=== PATIENT | female | born 1975 | race American Indian/Alaskan Native ===

== ENCOUNTER 2019-05-02 09:57 | Outpatient (CLI) | payer MEDICAID ==
--- NOTE | 2019-05-02 13:25 | Mammography Report ---
DIGITAL SCREENING MAMMOGRAM WITH CAD, 05/02/2019 INDICATION: Routine screening mammography. TECHNIQUE: Digital bilateral 2D mammography was obtained in the craniocaudal and mediolateral obliq ue projections. This examination was interpreted with the benefit of Computer-Aided Detection analysi s. COMPARISON: None. This is a baseline mammogram. FINDINGS: Breast Density: The breasts are almost entirely fatty. There is no evidence of dominant mass, suspicious calcifications or architectural distortion in eithe r breast. IMPRESSION: No mammographic evidence of malignancy. Follow up recommendation: Routine yearly BI-RADS Category 1: Negative. A "normal" or negative report should not discourage follow up or biopsy of a clinically significant f inding. A written summary of these findings will be mailed to the patient. The patient will be entered into a mammography reporting system which will generate a reminder letter for the patient's next appointmen t at the appropriate interval. The [employer] recommends yearly mammograms starting at age 40 and continuing as l mk[place]a as a woman is in good health. Breast MRI is recommended for women with an approximate 20-25% or greater lifetime risk of breast cancer, including women with a strong family history of breast or ova bernice cancer or who have been treated for Hodgkin's disease. Signer Name: Shantanu Valderrama MD Signed: 05/02/2019 1:21 PM Workstation Name: [id number]
== END 2019-05-02 09:58 | disposition home or self-care (01) ==
LOC: MAMMO 09:57
PROVIDERS: ATTEND Nurse Practitioner Family
DX: Z12.31 Encounter for screening mammogram for malignant neoplasm of breast (principal); N64.89 Other specified disorders of breast
CPT/HCPCS: 77067

== ENCOUNTER 2019-06-19 11:10 | Emergency (ER) | payer MEDICAID ==
--- NOTE | 2019-06-19 11:30 | Event Note ---
ED Screening Note ED Screening Note: SOB and CP that began 4 days ago swelling in the bilateral feet +constipation PMHx HTN, "heart problem" no allergies to meds non smoker This initial assessment/diagnostic orders/clinical plan/treatment(s) is/are subject to change based on patients health status, clinical progression and re- assessment by fellow clinical providers in the ED. Further treatment and workup at subsequent clinical providers discretion. Patient/guardian urged not to elope from the ED as their condition may be serious if not clinically assessed and managed. Initial orders include: CP protocol
--- NOTE | 2019-06-19 11:57 | Emergency Department Report ---
ED Chest Pain HPI - General Chief Complaint: Chest Pain Stated Complaint: CHEST PAIN Time Seen by Provider: 06/19/19 11:29 Source: patient Mode of arrival: Ambulatory Limitations: Other - History of Present Illness Initial Comments: Patient is 44 years old female with hearing impairment. Mother at bedside translating for patient. Mother stated that patient started having chest pain approximately 5 days ago described as sharp with no radiation. Patient stated that pain increases with cough and deep inspiration. She denied any fever or chills. No nausea or vomiting. 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 MD Complaint: chest pain -: days(s) (5) - Related Data Allergies Allergy/AdvReac Type Severity Reaction Status Date / Time No Known Allergies Allergy Unverified 06/19/19 11:32 Heart Score - HEART Score History: Slightly suspicious EKG: Non-specific Age: 45-65 Risk factors: 1-2 risk factors Troponin: < normal limit HEART Score: 3 - Critical Actions Critical Actions: 0-3 pts:0.9-1.7%risk of adverse cardiac event.Candidate for discharge ED Review of Systems ROS: Stated complaint: CHEST PAIN Other details as noted in HPI Comment: All other systems reviewed and negative Constitutional: denies: chills, fever Respiratory: cough, shortness of breath, SOB with exertion. denies: orthopnea, SOB at rest, stridor, wheezing Cardiovascular: chest pain Gastrointestinal: denies: abdominal pain, nausea, vomiting Musculoskeletal: denies: back pain Neurological: denies: headache, weakness ED Past Medical Hx - Past Medical History Previous Medical History?: Yes Hx Congestive Heart Failure: Yes - Social History Smoking Status: Never Smoker Substance Use Type: None ED Physical Exam - General Limitations: Other General appearance: alert, in no apparent distress - Head Head exam: Present: atraumatic, normocephalic, normal inspection - Eye Eye exam: Present: normal appearance, PERRL - ENT ENT exam: Present: normal exam, normal orophraynx, mucous membranes moist - Neck Neck exam: Present: normal inspection, full ROM. Absent: tenderness, meningismus, lymphadenopathy, thyromegaly - Respiratory Respiratory exam: Present: normal lung sounds bilaterally - Cardiovascular Cardiovascular Exam: Present: regular rate, normal rhythm, normal heart sounds - GI/Abdominal GI/Abdominal exam: Present: soft, normal bowel sounds. Absent: distended, tenderness, guarding, rebound, rigid, organomegaly, mass, bruit, pulsatile mass, hernia - Extremities Exam Extremities exam: Present: normal inspection, full ROM, normal capillary refill, pedal edema. Absent: calf tenderness - Back Exam Back exam: Present: normal inspection, full ROM. Absent: CVA tenderness (R), CVA tenderness (L), muscle spasm, paraspinal tenderness, vertebral tenderness - Neurological Exam Neurological exam: Present: alert, oriented X3, CN II-XII intact, normal gait. Absent: motor sensory deficit - Psychiatric Psychiatric exam: Present: normal mood - Skin Skin exam: Present: warm, intact, normal color ED Course Vital Signs 06/19/19 06/19/19 06/19/19 11:31 12:18 13:16 Temperature 98.5 F 98.7 F Pulse Rate 80 78 Respiratory 20 20 23 Rate Blood Pressure 169/88 131/57 Blood Pressure [Right] O2 Sat by Pulse 98 98 100 Oximetry 06/19/19 06/19/19 06/19/19 13:20 15:00 15:30 Temperature Pulse Rate 82 68 Respiratory 12 22 Rate Blood Pressure 166/79 166/79 Blood Pressure 159/69 [Right] O2 Sat by Pulse 98 99 97 Oximetry 06/19/19 16:00 Temperature Pulse Rate 71 Respiratory 13 Rate Blood Pressure 166/79 Blood Pressure [Right] O2 Sat by Pulse 93 Oximetry ED Medical Decision Making - Lab Data Result diagrams: 06/19/19 11:55 06/19/19 11:55 - EKG Data -: EKG Interpreted by Nv EKG shows normal: sinus rhythm Rate: normal - EKG Data Interpretation: no acute changes - Medical Decision Making Patient is 44 years old female with hearing impairment. Mother at bedside translating for patient. Mother stated that patient started having chest pain approximately 5 days ago described as sharp with no radiation. Patient stated that pain increases with cough and deep inspiration. She denied any fever or chills. No nausea or vomiting. 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 Patient remained asymptomatic in the ER except for mild coughing. EKG showed no ST elevation or depression. Chest x-ray is negative for acute finding. Labs reviewed and is unremarkable including 2- sets of troponin. D-dimer slightly elevated patient had a CTA chest which is negative for PE. Patient advised to follow-up with her primary care physician in the next 2 to 3 days and to return to the ER if symptoms are not improved. Critical care attestation.: If time is entered above; I have spent that time in minutes in the direct care of this critically ill patient, excluding procedure time. ED Disposition Clinical Impression: Chest pain, Acute bronchitis, GERD (gastroesophageal reflux disease) Disposition: - TO HOME OR SELFCARE Is pt being admited?: No Condition: Stable Instructions: Chest Pain (ED), Acute Bronchitis (ED) Referrals: NATHANIEL PORTILLO MD [Primary Care Provider] - 3-5 Days
[2019-06-19 12:19] LABS: Bilirubin,Urine NEG (Negative); Blood,Urine SM (Negative); Color,Urine Straw (Yellow); Mucus,Urine FEW /HPF; Protein,Urine <15 mg/dL mg/dL (Negative); Urobilinogen,Urine < 2.0 mg/dL (<2.0)
[2019-06-19] MEDS ORDERED: ASPIRIN 81 MG TAB CHEW PO ONE (12:28)
[2019-06-19 12:37] LABS: Basophils % (Auto) 0.7 % (0.0-1.8); Eosinophils # (Auto) 0.3 K/mm3 (0.0-0.4); Hematocrit 26.7 % (30.3-42.9); Hemoglobin 8.4 gm/dl (10.1-14.3); Lymphocytes # (Auto) 1.9 K/mm3 (1.2-5.4); Lymphocytes % (Auto) 26.6 % (13.4-35.0); Mean Corpuscular HGB Conc 31 % (30-34); Mean Corpuscular Volume 75 fl (79-97); Monocytes # (Auto) 0.8 K/mm3 (0.0-0.8); Monocytes % (Auto) 10.7 % (0.0-7.3); Platelet Count 384 K/mm3 (140-440); Red Blood Count 3.58 M/mm3 (3.65-5.03); Red Cell Distribution Width 16.5 % (13.2-15.2)
[2019-06-19 12:58] LABS: Alanine Aminotransferase 38 units/L (7-56); Albumin 4.3 g/dL (3.9-5); BUN/Creatinine Ratio 11; Blood Urea Nitrogen 9 mg/dL (7-17); Calcium 9.4 mg/dL (8.4-10.2); Hemolysis Index 7
--- NOTE | 2019-06-19 13:54 | XRay Report ---
CHEST 2 VIEWS INDICATION: Chest pain. COMPARISON: None FINDINGS: Support devices: None. Heart: Within normal limits. Lungs/pleura: No acute air space or interstitial disease. No pneumothorax. Additional findings: None. IMPRESSION: No acute findings. Signer Name: William Lopez Jr, MD Signed: 06/19/2019 1:50 PM Workstation Name: [id number]
--- NOTE | 2019-06-19 13:56 | XRay Report ---
ABDOMEN 2 VIEWS INDICATION: constipation. COMPARISON: No relevant prior imaging study available. FINDINGS: Normal bowel gas pattern with moderate stool in the right colon and in the rectum. No distended bowel and no air-fluid levels. No free air. No mass or suspicious calcifications. IMPRESSION: 1. Negative abdomen.. Signer Name: Shantanu Valderrama MD Signed: 06/19/2019 1:51 PM Workstation Name: [id number]
--- NOTE | 2019-06-19 15:11 | Cat Scan Report ---
CTA CHEST WITH CONTRAST INDICATION : CHEST PAIN WITH ELEVATED D-DIMER. TECHNIQUE: Axial imaging performed through the chest, with contrast bolus timing set to maximize opa cification of the pulmonary arteries. Sagittal and coronal reformatted images. 3-plane MIP reformatte d images were obtained. All CT scans at this location are performed using CT dose reduction for ALAR A by means of automated exposure control. 100 mL of intravenous contrast administered. COMPARISON: None FINDINGS: Bolus: Contrast bolus timing is adequate. PTE: No filling defect is present to suggest PTE. Mediastinum: Mild cardiomegaly is evident. No pericardial effusion. The aorta is normal caliber and widely patent. The thyroid gland, tracheobronchial tree and esophagus are unremarkable. Calcified rig ht hilar lymph nodes are noted suggesting chronic granulomatous disease. No pathologic mediastinal a denopathy. Lungs: Lungs are clear. Bones: Degenerative changes in the spine with nothing acute. Upper abdomen: Limited imaging of the upper abdomen shows nothing acute. IMPRESSION: No evidence for pulmonary embolus. Mild cardiomegaly. Lungs clear. Signer Name: William Lopez Jr, MD Signed: 06/19/2019 3:07 PM Workstation Name: [id number]
[2019-06-19 17:37] VITALS: BP 163/67
== END 2019-06-19 17:32 | disposition home or self-care (01) ==
LOC: ED 11:10
DX: J20.9 Acute bronchitis, unspecified (principal); R07.9 Chest pain, unspecified; K21.9 Gastro-esophageal reflux disease without esophagitis; I50.9 Heart failure, unspecified
CPT/HCPCS: 36415; 71046; 71275; 74019; 80053; 81001; 83880; 84484; 84703; 85025; 85379; 93005; 93010; 99285; Q9967

== ENCOUNTER 2020-09-25 16:46 | Inpatient (IN) | payer MEDICAID ==
[2020-09-25] MEDS ORDERED: ASPIRIN 300 MG RECT SUPP PR ONE (16:51)
[2020-09-25] MEDS ORDERED: fentaNYL 100 MCG/2 ML INJ IV PRN (16:52)
[2020-09-25] MEDS ORDERED: LIP THERAPY VASELINE TP PRN (16:52)
[2020-09-25] MEDS ORDERED: EPINEPHrine 1 MG/1 ML 8 MG in SODIUM CHLORIDE 0.9% 250ML 242 ML IV ONE (16:54)
[2020-09-25] MEDS ORDERED: CEFEPIME/NS 2 GM/100 ML 2 GM/100 ML BAG IV ONE (16:54)
[2020-09-25] MEDS ORDERED: SODIUM CHLORIDE 0.9% 500 ML 500 ML IV ONE (16:54)
[2020-09-25] MEDS ORDERED: fentaNYL DRIP Premix 2,000 MCG/100 ML BAG IV SCH (17:00)
--- NOTE | 2020-09-25 17:04 | Emergency Department Report ---
ED CPR HPI - General Chief Complaint: Cardiac Arrest/CPR Stated Complaint: CARDIAC ARREST Time Seen by Provider: 09/25/20 16:46 Source: EMS Mode of arrival: Stretcher Limitations: Altered Mental Status, Physical Limitation, Other - History of Present Illness Initial Comments: Patient is a 45-year-old female who presents emergency room for cardiac arrest. Patient is a cardiac arrest with EMS and had spontaneous return of circulation in route to the hospital. EMS states that the patient called 911 for shortness of breath. EMS states that when they arrived to the patient's house the patient then went to a cardiac arrest. EMS states they were given 2 rounds of epi, bicarb and defibrillated the patient twice. Patient was intubated by EMS. MD Complaint: found unresponsive, stopped breathing -: minute(s) Place: home Bystander CPR Performed: Yes AED Applied by Bystander/Ssrs Developer: Yes Shock Advised: Yes Number of Shocks Delivered: 2 Initial Findings in the Field: unresponsive, no respirations, no pulse ROSC in the Field: Yes Associated Symptoms: shortness of breath Treatments Prior to Arrival: intubation, BMV, chest compressions, defribrillated shocks #, epinephrine mgs #, sodium bicarbonate - Related Data Previous Rx's Medication Instructions Recorded Last Taken Type Amoxicillin [Amoxicillin TAB] 875 mg PO BID #14 tablet 06/19/19 Unknown Rx Esomeprazole Magnesium [NexIUM] 40 mg PO QDAY #30 capsule. 06/19/19 Unknown Rx guaiFENesin [Robitussin] 5 ml PO TID PRN #100 ml 06/19/19 Unknown Rx Allergies Allergy/AdvReac Type Severity Reaction Status Date / Time No Known Allergies Allergy Unverified 06/19/19 11:32 ED Review of Systems ROS: Stated complaint: CARDIAC ARREST Other details as noted in HPI Comment: Unobtainable due to pts medical conditions ED Past Medical Hx - Past Medical History Hx Congestive Heart Failure: Yes - Social History Smoking Status: Never Smoker Substance Use Type: None - Medications Home Medications: Home Medications Medication Instructions Recorded Confirmed Last Taken Type Amoxicillin [Amoxicillin TAB] 875 mg PO BID #14 tablet 06/19/19 Unknown Rx Esomeprazole Magnesium [NexIUM] 40 mg PO QDAY #30 capsule. 06/19/19 Unknown Rx guaiFENesin [Robitussin] 5 ml PO TID PRN #100 ml 06/19/19 Unknown Rx ED Physical Exam - General General appearance: in no apparent distress - Head Head exam: Present: atraumatic, normocephalic - Eye Eye exam: Present: normal appearance, PERRL Pupils: Present: normal accommodation - ENT ENT exam: Present: mucous membranes dry - Neck Neck exam: Present: normal inspection - Respiratory Respiratory exam: Present: normal lung sounds bilaterally. Absent: respiratory distress - Cardiovascular Cardiovascular Exam: Present: regular rate, normal rhythm. Absent: systolic murmur, diastolic murmur, rubs, gallop - GI/Abdominal GI/Abdominal exam: Present: soft, normal bowel sounds - Rectal Rectal exam: Present: deferred - Extremities Exam Extremities exam: Present: normal inspection - Back Exam Back exam: Present: normal inspection - Neurological Exam Neurological exam: Present: altered - Skin Skin exam: Present: warm, dry, intact, normal color. Absent: rash ED Course Vital Signs 09/25/20 09/25/20 09/25/20 16:46 16:51 16:58 Temperature 98 F Pulse Rate 115 H Pulse Rate [ From Monitor] Respiratory Rate Blood Pressure O2 Sat by Pulse 95 99 Oximetry 09/25/20 09/25/20 09/25/20 17:00 17:16 17:30 Temperature Pulse Rate 115 H 98 H 90 Pulse Rate [ From Monitor] Respiratory 14 19 23 Rate Blood Pressure 84/47 121/75 132/81 O2 Sat by Pulse 99 99 100 Oximetry 09/25/20 09/25/20 09/25/20 17:46 18:00 18:16 Temperature Pulse Rate 98 H 111 H 125 H Pulse Rate [ From Monitor] Respiratory 15 12 21 Rate Blood Pressure 144/84 112/63 118/71 O2 Sat by Pulse 91 Oximetry 09/25/20 09/25/20 09/25/20 18:30 18:46 19:01 Temperature Pulse Rate 132 H 122 H 120 H Pulse Rate [ From Monitor] Respiratory 14 14 14 Rate Blood Pressure 119/64 131/66 139/85 O2 Sat by Pulse 100 96 95 Oximetry 09/25/20 09/25/20 09/25/20 19:41 19:45 20:01 Temperature Pulse Rate 130 H 130 H 128 H Pulse Rate [ From Monitor] Respiratory 21 30 H Rate Blood Pressure 142/82 141/80 124/76 O2 Sat by Pulse 50 L 100 99 Oximetry 09/25/20 09/25/2021 20:15 20:31 20:45 Temperature Pulse Rate 126 H 123 H 123 H Pulse Rate [ From Monitor] Respiratory 25 H 20 18 Rate Blood Pressure 122/68 124/62 117/69 O2 Sat by Pulse 100 100 100 Oximetry 09/25/20 09/25/20 09/25/20 20:54 21:01 21:27 Temperature Pulse Rate 122 H 124 H Pulse Rate [ 122 H From Monitor] Respiratory 12 14 Rate Blood Pressure 116/65 116/65 O2 Sat by Pulse 98 97 100 Oximetry - Reevaluation(s) Reevaluation #1: Patient arrived with EMS and initial evaluation done. Patient found to have ET tube in the right mainstem and breath sounds were not heard on the left and the ET tube was immediately adjusted. Patient's initial Lucita 26 of the teeth and the patient was adjusted to 23 at the teeth. A chest x-ray to be done. Labs will be ordered. Patient currently has a pulse and is on the ventilator. Patient blood pressure initially low and given a bolus of fluids. Epinephrine has been ordered. 09/25/20 16:46 Reevaluation #2: Patient blood pressure is better with fluids. Patient appears to be seizing. Patient's drip will be changed from fentanyl to Ativan. Patient given a as needed Ativan dose. Patient also biting down on the ET tube. Patient was given rocuronium to relax the jaw muscles and a bite block will be placed. 09/25/20 17:45 Reevaluation #3: Central line placed without difficulty. See procedure note. 09/25/20 18:01 Reevaluation #4: Patient is resting more comfortably. Patient on Ativan drip. 09/25/20 18:55 Reevaluation #5: Patient admitted to the hospitalist service. I discussed the case with the family. 09/25/20 20:22 - Consultations Consultation #1: I discussed the case with general cardiology. General cardiology wants the patient placed on heparin if the CT of the head is negative. 09/25/20 19:12 Consultation #2: Hospitalist consulted for admission. Hospitalist to admit patient. 09/25/20 20:22 - Central Line Placement Right Femoral Consent Obtained: emergent situation Time Out Performed: Yes Patient Placed on Monitor/Pulse Ox: Yes Prep: mask, gown, gloves Central Line Prep: Chlorhexidine scrub, sterile drapes applied Local Anesthesia Used: Lidocaine 1% Ultrasound Used for Placement: Yes Central Line Lumen Inserted: triple Reason for Insertion: Emergency Venous Access Bloods Obtained for Lab: Yes Central Line Position: good blood return, all ports aspirated, flus, sutured in place with 2-0 Dressing Applied: Tegaderm Patient Tolerated Procedure: well, no complications Complications: none Additional Comments: Central Venous Line Placement: Indication: Hemodynamic monitoring/Intravenous access A time-out was completed verifying correct patient, procedure, site, positioning, and special equipment if applicable. The patient was placed in a dependent position appropriate for central line placement based on the vein to be cannulated. The patients right groin was prepped and draped in sterile fashion. 1% Lidocaine was used to anesthetize the surrounding skin area. An ultrasound was used in a sterile fashion to identify vasculature. A triple l umen catheter was introduced into the the common femoral vein using the Seldinger technique and under ultrasound guidance. The catheter was threaded smoothly over the guide wire and appropriate blood return was obtained. Each lumen of the catheter was evacuated of air and flushed with sterile saline. The catheter was then sutured in place to the skin and a sterile dressing applied. Perfusion to the extremity distal to the point of catheter insertion was checked and found to be adequate. Estimated Blood Loss: minimal The patient tolerated the procedure well and there were no complications. ED Medical Decision Making - Lab Data Result diagrams: 09/25/20 18:15 09/25/20 18:15 - EKG Data -: EKG Interpreted by Me EKG shows normal: sinus rhythm, axis, intervals, QRS complexes, ST-T waves Rate: normal - Radiology Data Radiology results: report reviewed, image reviewed interpreted by me: Chest x-ray: No pneumonia, no pneumothorax,, no osseous findings, no acute fin dings except for satisfactory placement of NG and ET tube. CHEST 1 VIEW 09/25/2020 4:28 PM INDICATION / CLINICAL INFORMATION: ETT placement. COMPARISON: 06/19/2019 FINDINGS: SUPPORT DEVICES: Interval placement of ET tube with its tip approximately 4 cm above level marian. Interval placement of NG tube with its tip in appropriate position over the left upper quadrant abdomen. HEART / MEDIASTINUM: Stable. LUNGS / PLEURA: No significant pulmonary or pleural abnormality. No pneumothorax. ADDITIONAL FINDINGS: No significant additional findings. IMPRESSION: 1. Interval placement of ET tube and NG tube both in appropriate position. 2. Findings otherwise unchanged from prior exam. CTA CHEST WITH IV CONTRAST INDICATION: cardiac arrest. sob [id number] 100ml ejected in femoral . TECHNIQUE: Axial CT images were obtained through the chest after injection of IV contrast. 3 plane MIP reconstructions were produced. All CT scans at this location are performed using CT dose reduction for Epiclist by means of automated exposure control. COMPARISON: 06/19/2019 FINDINGS: Pulmonary Arteries: No pulmonary emboli. Thoracic Aorta: No acute abnormality. Heart: Normal. There is reflux of contrast from the right atrium into the IVC. Lungs: There is consolidative change within both dependent lungs. Pleura: No pleural effusion. No pneumothorax. Lymph Nodes: No significant adenopathy. Additional Findings: Endotracheal tube is in satisfactory position. Upper Abdomen: No acute findings. Skeletal Structures: No significant osseous abnormality. IMPRESSION: 1. No CT evidence for pulmonary embolism. 2. Given the distribution, consolidative changes within both dependent lungs may be due to aspiration. CT BRAIN: 09/25/2020 INDICATION / CLINICAL INFORMATION: ams. cardiac arrest. sob . COMPARISON: None available. FINDINGS: BRAIN/INTRACRANIAL STRUCTURES: Unenhanced CT images of the brain demonstrate no evidence of acute abnormality. Ventricles and sulci are normal in size and shape. There is no evidence of acute ischemic injury, hemorrhage, or mass. There are no abnormal extra- axial fluid collections. EXTRACRANIAL STRUCTURES: Unremarkable. IMPRESSION: Negative unenhanced CT of the brain. - Medical Decision Making Patient is a 45-year-old female who presents emergency room with cardiac arrest. Prior to arrival EMS obtained spontaneous return of circulation. Report rec eived from EMS. EMS states that the gave the patient 2 rounds of epi, bicarb and defibrillated the patient with 2 shocks. Patient had return of circulation just prior to arrival. Patient was intubated by EMS. She was immediately adjusted due to anterolateral breath sounds. The chest x-ray was done and the breath sounds were normal. Patient chest x-ray showed good placement of the ET tube and the NG tube. The chest x-ray showed no pneumonia. I personally reviewed the chest x-ray. Patient had EKG done which showed normal sinus rhythm and no ST changes. I personally reviewed the EKG. Patient had labs done which were consistent with elevated lactic acid, elevated WBC, elevated troponin. I discussed these lab findings with general cardiology and cardiology recommended after the head CT was done the patient was started on a heparin protocol for NSTEMI. Patient had a head CT done which was negative for acute finding. Patient had a CTA of the chest to rule out a PE since the patient went to cardiac arrest after complaining of shortness of breath. CTA was negative for PE but showed bilateral aspiration to have pneumonia. Patient was given antibiotics early in her ER stay since the patient was tachycardic hypotensive and had a cardiac arrest. Patient given fluids while in the ER. Patient had a central line placed for emergent IV access since the patient is a cardiac arr est. Patient admitted to the hospital service for further evaluation treatment. Patient admitted to the ICU. I met with the family multiple times throughout the ER stay to keep them abreast of the information. Prior to admission, a long family meeting to allow the family to ask all the questions addressed all the family concerns. Critical care time documented due to the multiple reassessments, prolonged time at the bedside, interpretation of diagnostics and labs. - Differential Diagnosis Cardiac arrest, SOB, PE, NSTEMI, Critical Care Time: Yes Critical care time in (mins) excluding proc time.: 80 Critical care attestation.: If time is entered above; I have spent that time in minutes in the direct care of this critically ill patient, excluding procedure time. Critical Care Time: 80 minutes ED Disposition Clinical Impression: Cardiac arrest, SOB (shortness of breath), Seizure, Elevated troponin I level, Non-ST elevation [place] (NSTEMI), Acute hypoxemic respiratory failure, Lactic acid acidosis Hypotension Qualifiers: Hypotension type: unspecified hypotension type Qualified Code(s): I95.9 - Hypotension, unspecified Aspiration pneumonia Qualifiers: Aspiration pneumonia type: unspecified Laterality: bilateral Lung location: uns pecified part of lung Qualified Code(s): J69.0 - Pneumonitis due to inhalation of food and vomit Pneumonia Qualifiers: Pneumonia type: due to unspecified organism Laterality: unspecified laterality Lung location: unspecified part of lung Qualified Code(s): J18.9 - Pneumonia, unspecified organism UTI (urinary tract infection) Qualifiers: Urinary tract infection type: acute cystitis Hematuria presence: with hematuria Qualified Code(s): N30.01 - Acute cystitis with hematuria Disposition: OP ADMIT IP TO THIS HOSP Is pt being admited?: Yes Does the pt Need Aspirin: No Condition: Critical Time of Disposition: 20:21
--- NOTE | 2020-09-25 17:39 | XRay Report ---
CHEST 1 VIEW 09/25/2020 4:28 PM INDICATION / CLINICAL INFORMATION: ETT placement. COMPARISON: 06/19/2019 FINDINGS: SUPPORT DEVICES: Interval placement of ET tube with its tip approximately 4 cm above level marian. In terval placement of NG tube with its tip in appropriate position over the left upper quadrant abdomen . HEART / MEDIASTINUM: Stable. LUNGS / PLEURA: No significant pulmonary or pleural abnormality. No pneumothorax. ADDITIONAL FINDINGS: No significant additional findings. IMPRESSION: 1. Interval placement of ET tube and NG tube both in appropriate position. 2. Findings otherwise unchanged from prior exam. Signer Name: Chacho Houston MD Signed: 09/25/2020 5:35 PM Workstation Name: [id number]
[2020-09-25] MEDS ORDERED: LORazepam 2 MG/ML VIAL ONE (17:49)
[2020-09-25] MEDS: LORazepam 2 MG/ML VIAL IV PRN ×4 (17:50→18:22)
[2020-09-25] MEDS ORDERED: ROCURONIUM 50 MG/5 ML INJ IV ONE ×2 (18:25→18:26)
[2020-09-25] MEDS ORDERED: SODIUM CHLORIDE 0.9% 1000 ML 1,000 ML ONE (18:31)
[2020-09-25] MEDS ORDERED: SODIUM CHLORIDE 0.9% 1000 ML IV SOLN IV ONE ×2 (18:36→18:49)
[2020-09-25 18:37] LABS: Basophils # (Auto) 0.1 K/mm3 (0.0-0.1); Basophils % (Auto) 0.4 % (0.0-1.8); Eosinophils # (Auto) 0.2 K/mm3 (0.0-0.4); Eosinophils % (Auto) 1.4 % (0.0-4.3); Hematocrit 32.6 % (30.3-42.9); Hemoglobin 9.9 gm/dl (10.1-14.3); Lymphocytes # (Auto) 2.2 K/mm3 (1.2-5.4); Lymphocytes % (Auto) 15.8 % (13.4-35.0); Mean Corpuscular HGB Conc 30 % (30-34); Mean Corpuscular Volume 76 fl (79-97); Monocytes # (Auto) 0.5 K/mm3 (0.0-0.8); Monocytes % (Auto) 3.8 % (0.0-7.3); Platelet Count 359 K/mm3 (140-440); Red Blood Count 4.28 M/mm3 (3.65-5.03); Red Cell Distribution Width 17.9 % (13.2-15.2)
[2020-09-25] MEDS: LORazepam 100 MG in SODIUM CHLORIDE 0.9% 50 ML, EMPTY BAG 0 ML IV SCH ×2 (18:44→21:50)
--- NOTE | 2020-09-25 18:44 | History and Physical Report ---
History of Present Illness Chief complaint: Unresponsive History of present illness: 45 YO Female with Obesity Hypoventilation Syndrome, GERD presents to ED for evaluation. Patient is intubated and on ventilatory support at the time my evaluation is unable to provide history. Patient history taken from EMS staff, ED staff. As per staff EMS was notified for shortness of breath. Upon arrival the patient was found to be in distress and subsequently developed cardiac arrest. Patient was treated in accordance with ACLS protocol, as well as intubated in the field and subsequently transported to [facility] for further care and evaluation of the aforementioned symptoms. The patient was seen and evaluated in the emergency department. All lab and imaging studies reviewed. Patient was found to have persistent respiratory failure and was maintained on ventilatory support. Patient found to have sepsis, pneumonia, seizure disorder, metabolic acidosis, as well as NSTEMI.. Cardiology team consulted. Patient initiated on therapeutic anticoagulation as well as sepsis protocol and admitted to ICU. No further history is obtainable. No prior admission for review. All medication listed at time of admission has been reconciled. Past History Past Medical History: GERD, other (See HPI) Past Surgical History: No surgical history (Thank you) Social history: single. denies: smoking, alcohol abuse Family history: hypertension Medications and Allergies Allergies Allergy/AdvReac Type Severity Reaction Status Date / Time No Known Allergies Allergy Unverified 06/19/19 11:32 Home Medications Medication Instructions Recorded Confirmed Last Taken Type Amoxicillin [Amoxicillin TAB] 875 mg PO BID #14 tablet 06/19/19 Unknown Rx Esomeprazole Magnesium [NexIUM] 40 mg PO QDAY #30 capsule. 06/19/19 Unknown Rx guaiFENesin [Robitussin] 5 ml PO TID PRN #100 ml 06/19/19 Unknown Rx Active Meds: Active Medications Famotidine (Famotidine 20 Mg/2 Ml Inj) 20 mg IV BID RAMESH Hydrophilic Ointment (Lip Therapy Vaseline) 1 applic TP Q2HR PRN PRN Reason: Dry Lips Epinephrine 8 mg/ Sodium (Chloride) 250 mls @ 3.75 mls/hr IV TITR ONE; Protocol Stop: 09/28/20 11:33 Lorazepam 100 mg/ Sodium Chloride/ Miscellaneous Information 100 mls @ 1 mls/hr IV TITR RAMESH; Protocol Lorazepam (Lorazepam 2 Mg/Ml Vial) 2 mg IV Q10MIN PRN PRN Reason: Agitation Last Admin: 09/25/20 18:22 Dose: 2 mg Documented by: Multi-Ingred Cream/Lotion/Oil/Oint (Mineral Oil/Petrolatum, White Ophth Oint 3.5 Gm) 1 applic OU Q4HR PRN PRN Reason: Dry Eye(s) Senna/Docusate Sodium (Sennosides/Docusate Sodium 8.6/50 Mg Tab) 1 tab FEEDTUBE BID RAMESH Review of Systems ROS unobtainable: due to endotracheal tube, due to mental status Exam - Constitutional Vitals: Temp Pulse Resp BP Pulse Ox 115 H 99 09/25/20 16:58 09/25/20 16:58 General appearance: Present: mild distress, obese - EENT Eyes: Present: miosis ENT: hearing decreased - Neck Neck: Present: supple, normal ROM - Respiratory Respiratory effort: labored Respiratory: bilateral: diminished, rhonchi - Cardiovascular Heart Sounds: Present: S1 & S2. Absent: rub, click - Extremities Extremities: pulses symmetrical, No edema Peripheral Pulses: abnormal (Capillary refill greater than 3.5 seconds) - Abdominal Female genitourinary: Present: normal - Rectal Rectal Exam: normal exam-external/orifice - Integumentary Integumentary: Present: clear, dry, clammy, decreased turgor - Musculoskeletal Musculoskeletal: generalized weakness - Psychiatric Psychiatric: no appropriate mood/affect, no intact judgment & insight, no memory intact - Neurologic Neurologic: CNII-XII intact, no focal deficits, moves all extremities, no gait normal Results - Labs CBC & Chem 7: 09/25/20 18:15 09/25/20 18:15 Labs: Abnormal lab results 09/25/20 09/25/20 09/25/20 Range/Units 17:21 18:15 18:15 WBC 13.8 H (4.5-11.0) K/mm3 Hgb 9.9 L (10.1-14.3) gm/dl MCV 76 L (79-97) fl MCH 23 L (28-32) pg RDW 17.9 H (13.2-15.2) % Seg Neutrophils % 78.6 H (40.0-70.0) % Seg Neutrophils # 10.8 H (1.8-7.7) K/mm3 POC ABG pCO2 26.2 L (32.0-48.0) mmHg POC ABG pO2 554.5 H (83-108) mmHg ABG Hemoglobin 9.0 L (12.0-17.5) ABG Oxyhemoglobin 99.0 H (94-98) ABG Sodium 134.5 L (136.0-145.0) mmol/L ABG Glucose 220 H (65-95) mg/dL Lactic Acid 2.60 H* (0.7-2.0) mmol/L Arterial Blood Glucose 220 H (65-95) mg/dL Arterial Blood Ionized Calcium 4.2 L (4.6-5.3) mg/dL Assessment and Plan - Patient Problems (1) Sepsis Current Visit: Yes Status: Acute Qualifiers: Severe sepsis acute organ dysfunction type: encephalopathy Plan to address problem: Sepsis protocol: Chest x-ray, CBC, BMP, urinalysis, IV antibiotic therapy, IV fluid resuscitation therapy, maintain mean arterial pressure greater than or equal to 65, The high probability of a clinically significant, sudden or life threatening deterioration of the [cardiac, pulmonary, renal, neuro] system(s) required my full and direct attention, intervention and personal management. The aggregate critical care time was [95] minutes. This time is in addition to time spent performing reported procedures but includes the following: [x] Data Review and interpretation [x] Patient assessment and monitoring of vital signs [x] Documentation [x] Medication orders and management (2) Acute hypoxemic respiratory failure Current Visit: Yes Status: Acute Plan to address problem: Patient intubated and on ventilatory support: Critical care team consulted, wean vent as tolerated, daily spontaneous breathing trial, sedation holiday, daily ABG. (3) Pneumonia Current Visit: Yes Status: Acute Plan to address problem: Pneumonia protocol: IV antibiotic therapy, chest x-ray, CBC, CMP, blood culture, (4) NSTEMI (non-ST elevated myocardial infarction) Current Visit: Yes Status: Acute Plan to address problem: Cardiology team consulted, therapeutic anticoagulation as per cardiology team, echocardiogram ordered and is pending at time of admission. (5) Acidosis Current Visit: Yes Status: Acute Plan to address problem: Treat sepsis, IV fluid resuscitation therapy, BMP, repeat BMP in a.m. Serial lactic acid level. (6) Cardiac arrest Current Visit: Yes Status: Acute Plan to address problem: Patient treated" with ACLS protocol with return of perfusing cardiac rhythm, cardiology team consulted, echocardiogram ordered and is pending at time of admission. (7) Seizure disorder Current Visit: Yes Status: Acute Plan to address problem: Antiepilepsy therapy with Keppra, seizure precautions. (8) DVT prophylaxis Current Visit: Yes Status: Acute Plan to address problem: SCD to bilateral lower extremities while in bed, therapeutic anticoagulation
[2020-09-25] MEDS ORDERED: ALBUTEROL 2.5 MG/3 ML NEBU IH PRN (18:45)
[2020-09-25] MEDS ORDERED: ACETAMINOPHEN 650 MG RECT SUPP PR PRN (18:45)
[2020-09-25 18:53] LABS: Albumin 4.4 g/dL (3.9-5); Calcium 9.2 mg/dL (8.4-10.2)
[2020-09-25] MEDS ORDERED: levETIRAcetam 1000 MG/NS 0.75% 1,000 MG/100 ML BAG IV ONE (18:54)
[2020-09-25 18:55] LABS: Partial Thromboplastin Time 21.1 Sec. (24.2-36.6)
[2020-09-25 19:12] LABS: Bacteria,Urine 1+ /HPF (Negative); Bilirubin,Urine NEG (Negative); Blood,Urine SM (Negative); Color,Urine Yellow (Yellow); Urobilinogen,Urine < 2.0 mg/dL (<2.0)
[2020-09-25] MEDS: HYDROmorphone 1 MG/1 ML INJ IV PRN (19:12)
[2020-09-25 19:15] LABS: Protein,Urine >500 mg/dL (Negative)
[2020-09-25 19:18] LABS: Amphetamine Screen,Urine PRESUMPTIVE NEGATIVE; Benzodiazepines Screen,Urine PRESUMPTIVE NEGATIVE; Cannabinoid Screen,Urine PRESUMPTIVE NEGATIVE; Cocaine Screen,Urine PRESUMPTIVE NEGATIVE; Methadone Screen,Urine PRESUMPTIVE NEGATIVE; Opiate Screen,Urine PRESUMPTIVE NEGATIVE
[2020-09-25 19:34] LABS: HCG Qualitative,Urine Negative (Negative)
--- NOTE | 2020-09-25 20:03 | Cat Scan Report ---
CT BRAIN: 09/25/2020 INDICATION / CLINICAL INFORMATION: ams. cardiac arrest. sob . COMPARISON: None available. FINDINGS: BRAIN/INTRACRANIAL STRUCTURES: Unenhanced CT images of the brain demonstrate no evidence of acute abn ormality. Ventricles and sulci are normal in size and shape. There is no evidence of acute ischemic injury, hemorrhage, or mass. There are no abnormal extra-axial fluid collections. EXTRACRANIAL STRUCTURES: Unremarkable. IMPRESSION: Negative unenhanced CT of the brain. All CT scans at this location are performed using dose reduction to ALARA by means of automated expos ure control. Signer Name: Jeovany Colon MD Signed: 09/25/2020 7:58 PM Workstation Name: [id number]
[2020-09-25] MEDS ORDERED: HEPARIN 10,000 UNITS/10 ML VIAL IV ONE (20:07)
--- NOTE | 2020-09-25 20:09 | Cat Scan Report ---
CTA CHEST WITH IV CONTRAST INDICATION: cardiac arrest. sob [id number] 100ml ejected in femoral . TECHNIQUE: Axial CT images were obtained through the chest after injection of IV contrast. 3 plane MIP reconstru ctions were produced. All CT scans at this location are performed using CT dose reduction for ALARA b y means of automated exposure control. COMPARISON: 06/19/2019 FINDINGS: Pulmonary Arteries: No pulmonary emboli. Thoracic Aorta: No acute abnormality. Heart: Normal. There is reflux of contrast from the right atrium into the IVC. Lungs: There is consolidative change within both dependent lungs. Pleura: No pleural effusion. No pneumothorax. Lymph Nodes: No significant adenopathy. Additional Findings: Endotracheal tube is in satisfactory position. Upper Abdomen: No acute findings. Skeletal Structures: No significant osseous abnormality. IMPRESSION: 1. No CT evidence for pulmonary embolism. 2. Given the distribution, consolidative changes within both dependent lungs may be due to aspiration . Signer Name: Trenton Quiroz MD Signed: 09/25/2020 8:04 PM Workstation Name: [id number]
[2020-09-25] MEDS: SENNOSIDES/DOCUSATE SODIUM 8.6/50 MG TAB FEEDTUBE SCH (21:42)
[2020-09-25] MEDS: ACETAMINOPHEN 325 MG TAB PO PRN (21:42)
[2020-09-25] MEDS: HEPARIN/ 0.45% NACL DRIP 25,000 UNIT/500 ML BAG IV SCH (21:42)
[2020-09-25] MEDS: FAMOTIDINE 20 MG/2 ML INJ IV SCH (21:43)
--- NOTE | 2020-09-25 22:12 | Consultation ---
History of Present Illness Consult date: 09/25/20 Consult reason: cardiac arrest History of present illness: 45 year old female brought in by EMS after a witnessed cardiac arrest. Initial rhythm was asystole and patient received 2 rounds of epi and one bicarbonate followed by defibrillation x 2. EMS were able to achieve ROSC. Upon presentation to the ED patient did have a pulse. Patient had a seizure in the ED therefore a CT head eas obtained showing NAP. No family at the bedside. Initial ECG showing no ST-T changes to suggest ischemic heart disease as etiology behind cardiac arrest. Also troponin is minimally elevated and is not consistent with ACS. Patient is currently intubated. Past History Past Medical History: GERD, other (See HPI) Past Surgical History: No surgical history (Thank you) Social history: single. denies: smoking, alcohol abuse Family history: hypertension Medications and Allergies Allergies Allergy/AdvReac Type Severity Reaction Status Date / Time No Known Allergies Allergy Unverified 06/19/19 11:32 Home Medications Medication Instructions Recorded Confirmed Last Taken Type Amoxicillin [Amoxicillin TAB] 875 mg PO BID #14 tablet 06/19/19 Unknown Rx Esomeprazole Magnesium [NexIUM] 40 mg PO QDAY #30 capsule. 06/19/19 Unknown Rx guaiFENesin [Robitussin] 5 ml PO TID PRN #100 ml 06/19/19 Unknown Rx Active Meds: Active Medications Acetaminophen (Acetaminophen 650 Mg Rect Supp) 650 mg DC Q6H PRN PRN Reason: Pain MILD(1-3)/Fever >100.5/RUIZ Acetaminophen (Acetaminophen 325 Mg Tab) 650 mg PO Q6H PRN PRN Reason: Pain, Mild (1-3) Last Admin: 09/25/20 21:42 Dose: 650 mg Documented by: Albuterol (Albuterol 2.5 Mg/3 Ml Nebu) 2.5 mg IH Q3HRT PRN PRN Reason: Shortness Of Breath Famotidine (Famotidine 20 Mg/2 Ml Inj) 20 mg IV BID RAMESH Last Admin: 09/25/20 21:43 Dose: 20 mg Documented by: Hydromorphone HCl (Hydromorphone 1 Mg/1 Ml Inj) 0.25 mg IV Q4H PRN PRN Reason: Pain, Moderate (4-6) Hydrophilic Ointment (Lip Therapy Vaseline) 1 applic TP Q2HR PRN PRN Reason: Dry Lips Epinephrine 8 mg/ Sodium (Chloride) 250 mls @ 3.75 mls/hr IV TITR ONE; Protocol Stop: 09/28/20 11:33 Lorazepam 100 mg/ Sodium Chloride/ Miscellaneous Information 100 mls @ 1 mls/hr IV TITR RAMESH; Protocol Last Admin: 09/25/20 21:50 Dose: 1 mg/hr, 1 mls/hr Documented by: Levetiracetam 500 mg/ Dextrose 105 mls @ 400 mls/hr IV Q12H RAMESH Heparin Sodium/Sodium Chloride (Heparin/ 0.45% Nacl-25,000 Unit/500 Ml) 25,000 unit in 500 mls @ 20 mls/hr IV TITRATE RAMESH; Protocol Last Admin: 09/25/20 21:42 Dose: 1,000 units/hr, 20 mls/hr Documented by: Lorazepam (Lorazepam 2 Mg/Ml Vial) 2 mg IV Q10MIN PRN PRN Reason: Agitation Last Admin: 09/25/20 18:22 Dose: 2 mg Documented by: Multi-Ingred Cream/Lotion/Oil/Oint (Mineral Oil/Petrolatum, White Ophth Oint 3.5 Gm) 1 applic OU Q4HR PRN PRN Reason: Dry Eye(s) Senna/Docusate Sodium (Sennosides/Docusate Sodium 8.6/50 Mg Tab) 1 tab FEEDTUBE BID [facility] Last Admin: 09/25/20 21:42 Dose: 1 tab Documented by: Sodium Chloride (Sodium Chloride 0.9% 10 Ml Flush Syringe) 10 ml IV BID [facility] Last Admin: 09/25/20 21:51 Dose: 10 ml Documented by: Sodium Chloride (Sodium Chloride 0.9% 10 Ml Flush Syringe) 10 ml IV PRN PRN PRN Reason: LINE FLUSH Review of Systems ROS unobtainable: due to endotracheal tube, due to mental status Physical Examination Vital Signs Pulse Ox 95 09/25/20 16:46 General appearance: no acute distress Neck: Positive: neck supple Cardiac: Positive: Reg Rate and Rhythm Lungs: Positive: Ventilated Respirations Abdomen: Positive: Soft Results 09/25/20 18:15 09/25/20 18:15 Cardiac Enzymes 09/25/20 Range/Units 18:15 AST 162 H (5-40) units/L Coagulation 09/25/20 Range/Units 18:15 PT 13.7 (12.2-14.9) Sec. INR 1.00 (0.87-1.13) APTT 21.1 L (24.2-36.6) Sec. CBC 09/25/20 Range/Units 18:15 WBC 13.8 H (4.5-11.0) K/mm3 RBC 4.28 (3.65-5.03) M/mm3 Hgb 9.9 L (10.1-14.3) gm/dl Hct 32.6 (30.3-42.9) % Plt Count 359 (140-440) K/mm3 Lymph # (Auto) 2.2 (1.2-5.4) K/mm3 [place] # (Auto) 0.5 (0.0-0.8) K/mm3 Eos # (Auto) 0.2 (0.0-0.4) K/mm3 Baso # (Auto) 0.1 (0.0-0.1) K/mm3 Comprehensive Metabolic Panel 09/25/20 Range/Units 18:15 Sodium 139 (137-145) mmol/L Potassium 4.9 (3.6-5.0) mmol/L Chloride 100.8 (98-107) mmol/L Carbon Dioxide 25 (22-30) mmol/L BUN 12 (7-17) mg/dL Creatinine 1.2 (0.6-1.2) mg/dL Glucose 113 H (65-100) mg/dL Calcium 9.2 (8.4-10.2) mg/dL AST 162 H (5-40) units/L ALT 131 H (7-56) units/L Alkaline Phosphatase 116 (35-129) units/L Total Protein 7.4 (6.3-8.2) g/dL Albumin 4.4 (3.9-5) g/dL - EKG Interpretation EKG: sinus rhythm Assessment and Plan Witnessed OOH cardiac arrest ECG - No ischemic findings CT brain - NAP CT chest - no PE, consolidative changes at bases bilaterally suggesting aspiration Acute respiratory failure Non-specific troponin Recommendations: Order echocardiogram Check urine drug screen Agree with empiric IV heparin Further cardiac work-up will depend on clinical course
[2020-09-26] MEDS ORDERED: SODIUM CHLORIDE 0.9% 1000 ML 500 ML IV SCH (01:15)
[2020-09-26 02:34] LABS: Chol/HDL Ratio 2.2 %
[2020-09-26] MEDS: ACETAMINOPHEN 325 MG TAB PO PRN ×2 (05:33→17:44)
--- NOTE | 2020-09-26 05:51 | XRay Report ---
CHEST 1 VIEW INDICATION / CLINICAL INFORMATION: follow up respiratory failure. COMPARISON: 09/25/2020 FINDINGS: SUPPORT DEVICES: Stable and satisfactory positioning of ET tube and NG tube HEART / MEDIASTINUM: Cardiac silhouette remains mildly enlarged. LUNGS / PLEURA: Pulmonary vascular congestion persists. Mild bilateral parenchymal disease has worsen ed slightly. No pleural effusion. No pneumothorax. ADDITIONAL FINDINGS: No significant additional findings. IMPRESSION: 1. Slight interval worsening of bilateral parenchymal disease felt to be secondary to pneumonia, poss ibly aspiration pneumonia. Signer Name: Amalia Landers MD Signed: 09/26/2020 5:47 AM Workstation Name: [id number]
[2020-09-26 05:56] LABS: Basophils # (Auto) 0.1 K/mm3 (0.0-0.1); Basophils % (Auto) 0.3 % (0.0-1.8); Hematocrit 31.7 % (30.3-42.9); Lymphocytes # (Auto) 1.1 K/mm3 (1.2-5.4); Lymphocytes % (Auto) 7.2 % (13.4-35.0); Mean Corpuscular HGB Conc 32 % (30-34); Mean Corpuscular Volume 77 fl (79-97); Monocytes % (Auto) 6.4 % (0.0-7.3); Platelet Count 307 K/mm3 (140-440); Red Blood Count 4.13 M/mm3 (3.65-5.03); Red Cell Distribution Width 17.8 % (13.2-15.2)
[2020-09-26] MEDS ORDERED: levETIRAcetam 500 MG in DEXTROSE 5% IN WATER 100 ML IV SCH (06:00)
[2020-09-26 06:11] LABS: Alanine Aminotransferase 103 units/L (7-56); Albumin 3.8 g/dL (3.9-5); BUN/Creatinine Ratio 13; Blood Urea Nitrogen 13 mg/dL (7-17); Calcium 8.1 mg/dL (8.4-10.2); Hemolysis Index 2
[2020-09-26] MEDS: LORazepam 2 MG/ML VIAL IV PRN (08:29)
--- NOTE | 2020-09-26 08:55 | Progress Note ---
Assessment and Plan Assessment and plan: --Out of the hospital cardiac arrest; Current Visit: Yes Status: Acute Patient treated" with ACLS protocol with return of perfusing cardiac rhythm, cardiology evaluation noted and appreciated, Follow echocardiogram LV function ejection fraction --Anoxic brain injury; Current Visit: Yes Status: Acute CT head no acute abnormality noted Neurochecks, supportive care Neurology consult requested neuro work-up per neurology -- Acute hypoxemic respiratory failure Current Visit: Yes Status: Acute Patient intubated and on ventilatory support: Critical care team following, wean vent as tolerated, Continue supportive care --NSTEMI (non-ST elevated myocardial infarction) Current Visit: Yes Status: Acute Due to cardiac arrest Follow cardiology recommendations -- Sepsis Current Visit: Yes Status: Acute Sepsis protocol: Chest x-ray, CBC, BMP, urinalysis, Continue empiric IV antibiotic therapy, IV fluid resuscitation therapy, Follow cultures --Leukocytosis; due to sepsis treat the underlying cause Follow cultures -- lactic acidosis Current Visit: Yes Status: Acute Plan to address problem: Treat sepsis, IV fluid resuscitation therapy, BMP, repeat BMP in a.m. Serial lactic acid level. -- Pneumonia Current Visit: Yes Status: Acute Plan to address problem: Pneumonia protocol: IV antibiotic therapy, chest x-ray, CBC, CMP, blood culture, -- Seizure disorder Current Visit: Yes Status: Acute Plan to address problem: Antiepilepsy therapy with Keppra, seizure precautions. --Obesity; BMI 39.1 --DVT prophylaxis Current Visit: Yes Status: Acute Plan to address problem: SCD to bilateral lower extremities while in bed, therapeutic anticoagulation --full CODE STATUS Poor prognosis We will try to contact family and update patient's critical condition, poor prognosis ,treatment plan and CODE STATUS The high probability of a clinically significant, sudden or life threatening deterioration of the [cardiac, pulmonary, renal, neuro] system(s) required my full and direct attention, intervention and personal management. The aggregate critical care time was [40] minutes. This time is in addition to time spent performing reported procedures but includes the following: [x] Data Review and interpretation [x] Patient assessment and monitoring of vital signs [x] Documentation [x] Medication orders and management History Interval history: I seen and examined the patient at the bedside in ICU this morning Patient was admitted with out of the hospital cardiac arrest status post CPR per ACLS protocols Anoxic brain injury, unresponsive Orally intubated on ventilatory support Vital signs reviewed Hospitalist Physical - Constitutional Vitals: Temp Pulse Resp BP Pulse Ox 99.8 F H 123 H 21 157/82 98 09/26/20 08:00 09/26/20 08:00 09/26/20 08:00 09/26/20 08:00 09/26/20 08:00 General appearance: Present: no acute distress, obese (Morbidly obese), other (Intubated on ventilatory support, unresponsive) - EENT Eyes: Absent: scleral icterus, conjunctival injection - Neck Neck: Present: supple, other (ET tube and Dobbhoff in place) - Respiratory Respiratory effort: normal Respiratory: bilateral: diminished, rhonchi, negative: rales, wheezing - Cardiovascular Rhythm: regular Heart Sounds: Present: S1 & S2 - Extremities Extremities: no ischemia, No edema - Abdominal General gastrointestinal: soft, non-tender, non-distended, normal bowel sounds - Integumentary Integumentary: Present: clear, warm - Psychiatric Psychiatric: other (Unresponsive) - Neurologic Neurologic: other (Unresponsive) HEART Score - HEART Score Troponin: Troponin T 0.170 ng/mL (0.00-0.029) H* D 09/25/20 23:13 Results - Labs CBC & Chem 7: 09/26/20 05:09 09/26/20 05:09 Labs: Laboratory Last Values WBC 15.8 K/mm3 (4.5-11.0) H 09/26/20 05:09 RBC 4.13 M/mm3 (3.65-5.03) 09/26/20 05:09 Hgb 10.0 gm/dl (10.1-14.3) L 09/26/20 05:09 Hct 31.7 % (30.3-42.9) 09/26/20 05:09 MCV 77 fl (79-97) L 09/26/20 05:09 MCH 24 pg (28-32) L 09/26/20 05:09 MCHC 32 % (30-34) 09/26/20 05:09 RDW 17.8 % (13.2-15.2) H 09/26/20 05:09 Plt Count 307 K/mm3 (140-440) 09/26/20 05:09 Lymph % (Auto) 7.2 % (13.4-35.0) L 09/26/20 05:09 [place] % (Auto) 6.4 % (0.0-7.3) 09/26/20 05:09 Eos % (Auto) 0.0 % (0.0-4.3) 09/26/20 05:09 Baso % (Auto) 0.3 % (0.0-1.8) 09/26/20 05:09 Lymph # (Auto) 1.1 K/mm3 (1.2-5.4) L 09/26/20 05:09 [place] # (Auto) 1.0 K/mm3 (0.0-0.8) H 09/26/20 05:09 Eos # (Auto) 0.0 K/mm3 (0.0-0.4) 09/26/20 05:09 Baso # (Auto) 0.1 K/mm3 (0.0-0.1) 09/26/20 05:09 Seg Neutrophils % 86.1 % (40.0-70.0) H 09/26/20 05:09 Seg Neutrophils # 13.6 K/mm3 (1.8-7.7) H 09/26/20 05:09 PT 13.7 Sec. (12.2-14.9) 09/25/20 18:15 INR 1.00 (0.87-1.13) 09/25/20 18:15 APTT 21.1 Sec. (24.2-36.6) L 09/25/20 18:15 Heparin Anti-Xa Level 0.69 U.I./ml (0.3-0.7) 09/26/20 03:47 ABG pH 7.451 (7.320-7.450) H 09/26/20 03:15 POC ABG pCO2 27.1 mmHg (32.0-48.0) L 09/26/20 03:15 POC ABG pO2 106.1 mmHg (83-108) 09/26/20 03:15 POC ABG HCO3 18.5 09/26/20 03:15 ABG O2 Saturation 98.2 (0-100) 09/26/20 03:15 POC ABG Base Excess -4.4 09/26/20 03:15 ABG Hemoglobin 10.4 (12.0-17.5) L 09/26/20 03:15 ABG Oxyhemoglobin 97.2 (94-98) 09/26/20 03:15 ABG Methemoglobin 0.3 (0.0-1.5) 09/26/20 03:15 ABG Sodium 135.2 mmol/L (136.0-145.0) L 09/26/20 03:15 ABG Potassium 3.5 mmol/L (3.40-4.50) 09/26/20 03:15 ABG Chloride 108.0 mmol/L (98-107) H 09/26/20 03:15 ABG Glucose 137 mg/dL (65-95) H 09/26/20 03:15 Carboxyhemoglobin 0.7 (0.5-1.5) 09/26/20 03:15 FiO2 % 30.0 09/26/20 03:15 Sodium 139 mmol/L (137-145) 09/26/20 05:09 Potassium 3.9 mmol/L (3.6-5.0) D 09/26/20 05:09 Chloride 103.9 mmol/L (98-107) 09/26/20 05:09 Carbon Dioxide 23 mmol/L (22-30) 09/26/20 05:09 Anion Gap 16 mmol/L 09/26/20 05:09 BUN 13 mg/dL (7-17) 09/26/20 05:09 Creatinine 1.0 mg/dL (0.6-1.2) 09/26/20 05:09 Estimated GFR > 60 ml/min 09/26/20 05:09 BUN/Creatinine Ratio 13 % 09/26/20 05:09 Glucose 114 mg/dL (65-100) H 09/26/20 05:09 POC Glucose 90 mg/dL (70-105) 09/25/20 21:27 Lactic Acid 2.40 mmol/L (0.7-2.0) H* 09/26/20 05:09 Calcium 8.1 mg/dL (8.4-10.2) L 09/26/20 05:09 Total Bilirubin 0.40 mg/dL (0.1-1.2) 09/26/20 05:09 AST 112 units/L (5-40) H 09/26/20 05:09 ALT 103 units/L (7-56) H 09/26/20 05:09 Alkaline Phosphatase 97 units/L (35-129) 09/26/20 05:09 Troponin T 0.170 ng/mL (0.00-0.029) H* D 09/25/20 23:13 Total Protein 7.1 g/dL (6.3-8.2) 09/26/20 05:09 Albumin 3.8 g/dL (3.9-5) L 09/26/20 05:09 Albumin/Globulin Ratio 1.2 % 09/26/20 05:09 Triglycerides 40 mg/dL (2-149) 09/25/20 23:13 Cholesterol 132 mg/dL (50-199) 09/25/20 23:13 LDL Cholesterol Direct 66 mg/dL (50-130) 09/25/20 23:13 HDL Cholesterol 60 mg/dL (40-59) H 09/25/20 23:13 Cholesterol/HDL Ratio 2.20 % 09/25/20 23:13 Arterial Blood Glucose 137 mg/dL (65-95) H 09/26/20 03:15 Arterial Blood Ionized Calcium 4.2 mg/dL (4.6-5.3) L 09/26/20 03:15 Urine Color Yellow (Yellow) 09/25/20 17:19 Urine Turbidity Cloudy (Clear) 09/25/20 17:19 Urine pH 7.0 (5.0-7.0) 09/25/20 17:19 Ur Specific Rescue 1.012 (1.003-1.030) 09/25/20 17:19 Urine Protein >500 mg/dL (Negative) 09/25/20 17:19 Urine Glucose (UA) 50 mg/dL (Negative) 09/25/20 17:19 Urine Ketones Neg mg/dL (Negative) 09/25/20 17:19 Urine Blood Sm (Negative) 09/25/20 17:19 Urine Nitrite Neg (Negative) 09/25/20 17:19 Urine Bilirubin Neg (Negative) 09/25/20 17:19 Urine Urobilinogen < 2.0 mg/dL (<2.0) 09/25/20 17:19 Ur Leukocyte Esterase Neg (Negative) 09/25/20 17:19 Urine WBC (Auto) 14.0 /HPF (0.0-6.0) H 09/25/20 17:19 Urine RBC (Auto) 101.0 /HPF (0.0-6.0) 09/25/20 17:19 U Epithel Cells (Auto) 1.0 /HPF (0-13.0) 09/25/20 17:19 Urine Bacteria (Auto) 1+ /HPF (Negative) 09/25/20 17:19 Urine HCG, Qual Negative (Negative) 09/25/20 17:19 Urine Opiates Screen Presumptive negative 09/25/20 17:19 Urine Methadone Screen Presumptive negative 09/25/20 17:19 Ur Barbiturates Screen Presumptive negative 09/25/20 17:19 Ur Phencyclidine Scrn Presumptive negative 09/25/20 17:19 Ur Amphetamines Screen Presumptive negative 09/25/20 17:19 U Benzodiazepines Scrn Presumptive negative 09/25/20 17:19 Urine Cocaine Screen Presumptive negative 09/25/20 17:19 U Marijuana (THC) Screen Presumptive negative 09/25/20 17:19 Drugs of Abuse Note Disclamer 09/25/20 17:19 Blood Type B POSITIVE 09/25/20 19:00 Antibody Screen Negative 09/25/20 19:00 Microbiology: Microbiology 09/25/20 18:15 Peripheral/Venous Blood Culture - Preliminary Culture in Progress 09/25/20 18:15 Peripheral/Venous Blood Culture - Preliminary Culture in Progress Grace/IV: Voiding Method Indwelling Catheter Active Medications - Current Medications Current Medications: Generic Name Dose Route Start Last Admin Trade Name Freq PRN Reason Stop Dose Admin Acetaminophen 650 mg 09/25/20 18:45 Acetaminophen 650 Mg Rect Supp [place] Q6H PRN Pain MILD(1-3)/Fever >100.5/RUIZ Acetaminophen 650 mg 09/25/20 18:49 09/26/20 05:33 Acetaminophen 325 Mg Tab PO 650 mg Q6H PRN Administration Pain, Mild (1-3) Albuterol 2.5 mg 09/25/20 18:45 Albuterol 2.5 Mg/3 Ml Nebu IH Q3HRT PRN Shortness Of Breath Famotidine 20 mg 09/25/20 22:00 09/25/20 21:43 Famotidine 20 Mg/2 Ml Inj IV 20 mg BID RAMESH Administration Hydromorphone HCl 0.25 mg 09/25/20 18:49 09/25/20 19:12 Hydromorphone 1 Mg/1 Ml Inj IV 0.25 mg Q4H PRN Administration Pain, Moderate (4-6) Hydrophilic Ointment 1 applic 09/25/20 16:52 Lip Therapy Vaseline TP Q2HR PRN Dry Lips Epinephrine 8 mg/ Sodium 250 mls @ 3.75 mls/hr 09/25/20 16:54 Chloride IV 09/28/20 11:33 TITR ONE Protocol 2 MCG/MIN Lorazepam 100 mg/ Sodium 100 mls @ 1 mls/hr 09/25/20 18:00 09/25/20 21:50 Chloride/ Miscellaneous IV 1 mg/hr Information TITR RAMESH 1 mls/hr Administration Protocol 1 MG/HR Levetiracetam 500 mg/ Dextrose 105 mls @ 400 mls/hr 09/26/20 06:00 09/26/20 05:27 IV 400 mls/hr Q12H RAMESH Administration Heparin Sodium/Sodium Chloride 25,000 unit in 500 mls @ 20 mls/hr 09/25/20 21:00 09/26/20 04:12 Heparin/ 0.45% Nacl-25,000 Unit/500 Ml IV 1,000 units/hr TITRATE RAMESH 20 mls/hr Titration Protocol 1,000 UNITS/HR Multi-Ingred Cream/Lotion/Oil/Oint 1 applic 09/25/20 16:52 Mineral Oil/Petrolatum, White Ophth Oint 3.5 Gm OU Q4HR PRN Dry Eye(s) Senna/Docusate Sodium 1 tab 09/25/20 22:00 09/25/20 21:42 Sennosides/Docusate Sodium 8.6/50 Mg Tab FEEDTUBE 1 tab BID RAMESH Administration Sodium Chloride 10 ml 09/25/20 22:00 09/25/20 21:51 Sodium Chloride 0.9% 10 Ml Flush Syringe IV 10 ml BID RAMESH Administration Sodium Chloride 10 ml 09/25/20 18:45 Sodium Chloride 0.9% 10 Ml Flush Syringe IV PRN PRN LINE FLUSH
[2020-09-26] MEDS: SENNOSIDES/DOCUSATE SODIUM 8.6/50 MG TAB FEEDTUBE SCH ×2 (11:00→21:22)
[2020-09-26] MEDS: FAMOTIDINE 20 MG/2 ML INJ IV SCH ×2 (11:00→21:16)
--- NOTE | 2020-09-26 12:10 | Progress Note ---
<CJ MONTANO - Last Filed: 09/26/20 12:08> Assessment and Plan Witnessed OOH cardiac arrest ECG - No ischemic findings CT brain - NAP CT chest - no PE, consolidative changes at bases bilaterally suggesting aspiration Acute respiratory failure Non-specific troponin Recommendations: Order echocardiogram. Further cardiac work-up will depend on clinical course. Subjective Date of service: 09/26/20 Interval history: Unresponsive on the ventilator. Objective Vital Signs Temp Pulse Pulse Resp BP Pulse Ox 09/26/20 08:00 99.8 F H 115 H 21 133/75 99 09/26/20 07:31 121 H 18 155/84 98 09/26/20 07:00 125 H 125 H 14 155/84 100 09/26/20 06:31 126 H 19 160/88 100 09/26/20 06:00 128 H 21 160/88 100 09/26/20 05:31 126 H 18 166/90 99 09/26/20 05:00 128 H 21 166/90 99 09/26/20 04:31 130 H 22 161/88 99 09/26/20 04:24 128 H 161/88 99 09/26/20 04:00 102.5 F H 128 H 22 161/88 100 09/26/20 03:31 127 H 18 154/91 99 09/26/20 03:00 126 H 18 154/91 99 09/26/20 02:31 124 H 18 151/85 100 09/26/20 02:00 123 H 16 151/85 100 09/26/20 01:31 124 H 16 151/85 100 09/26/20 01:30 122 H 14 100 09/26/20 01:00 123 H 17 151/85 100 09/26/20 00:42 121 H 143/83 100 09/26/20 00:31 120 H 17 144/82 99 09/26/20 00:00 101.5 F H 122 H 17 143/83 99 09/25/20 23:45 120 H 16 144/82 97 09/25/20 23:30 118 H 20 139/81 98 09/25/20 23:15 119 H 14 135/81 100 09/25/20 23:03 118 H 16 127/75 100 09/25/20 23:00 118 H 16 127/75 100 09/25/20 22:59 120 H 16 100 09/25/20 21:50 102.1 F H 09/25/20 21:37 102.1 F H 09/25/20 21:36 102.1 F H 09/25/20 21:27 122 H 14 100 09/25/20 21:01 124 H 12 116/65 97 09/25/20 20:54 122 H 116/65 98 09/25/20 20:45 123 H 18 117/69 100 09/25/20 20:31 123 H 20 124/62 100 09/25/20 20:15 126 H 25 H 122/68 100 09/25/20 20:01 128 H 30 H 124/76 99 09/25/20 19:45 130 H 21 141/80 100 09/25/20 19:41 130 H 142/82 50 L 09/25/20 19:01 120 H 14 139/85 95 09/25/20 18:46 122 H 14 131/66 96 09/25/20 18:30 132 H 14 119/64 100 09/25/20 18:16 125 H 21 118/71 09/25/20 18:00 111 H 12 112/63 91 09/25/20 17:46 98 H 15 144/84 09/25/20 17:30 90 23 132/81 100 09/25/20 17:16 98 H 19 121/75 99 09/25/20 17:00 115 H 14 84/47 99 09/25/20 16:58 115 H 99 09/25/20 16:51 98 F 09/25/20 16:46 95 - Physical Examination General: Other (intubated) Cardiac: Positive: Tachycardia - Labs and Meds Cardiac Enzymes 09/25/20 09/26/20 Range/Units 18:15 05:09 AST 162 H 112 H (5-40) units/L Coagulation 09/25/20 Range/Units 18:15 PT 13.7 (12.2-14.9) Sec. INR 1.00 (0.87-1.13) APTT 21.1 L (24.2-36.6) Sec. Lipids 09/25/20 Range/Units 23:13 Triglycerides 40 (2-149) mg/dL Cholesterol 132 (50-199) mg/dL HDL Cholesterol 60 H (40-59) mg/dL Cholesterol/HDL Ratio 2.20 % CBC 09/25/20 09/26/20 Range/Units 18:15 05:09 WBC 13.8 H 15.8 H (4.5-11.0) K/mm3 RBC 4.28 4.13 (3.65-5.03) M/mm3 Hgb 9.9 L 10.0 L (10.1-14.3) gm/dl Hct 32.6 31.7 (30.3-42.9) % Plt Count 359 307 (140-440) K/mm3 Lymph # (Auto) 2.2 1.1 L (1.2-5.4) K/mm3 [place] # (Auto) 0.5 1.0 H (0.0-0.8) K/mm3 Eos # (Auto) 0.2 0.0 (0.0-0.4) K/mm3 Baso # (Auto) 0.1 0.1 (0.0-0.1) K/mm3 Comprehensive Metabolic Panel 09/25/20 09/26/20 Range/Units 18:15 05:09 Sodium 139 139 (137-145) mmol/L Potassium 4.9 3.9 D (3.6-5.0) mmol/L Chloride 100.8 103.9 (98-107) mmol/L Carbon Dioxide 25 23 (22-30) mmol/L BUN 12 13 (7-17) mg/dL Creatinine 1.2 1.0 (0.6-1.2) mg/dL Glucose 113 H 114 H (65-100) mg/dL Calcium 9.2 8.1 L (8.4-10.2) mg/dL AST 162 H 112 H (5-40) units/L ALT 131 H 103 H (7-56) units/L Alkaline Phosphatase 116 97 (35-129) units/L Total Protein 7.4 7.1 (6.3-8.2) g/dL Albumin 4.4 3.8 L (3.9-5) g/dL <CANDIDO FREEMAN Last Filed: 10/02/20 23:31> Subjective Interval history: I SAW THIS PT & AGREE WITH THE Dx & Tx PLAN. Objective Vital Signs Temp Pulse Pulse Resp BP Pulse Ox 10/02/20 23:26 99.5 F 10/02/20 22:30 66 16 113/33 100 10/02/20 22:00 64 15 111/42 100 10/02/20 21:43 64 112/33 10/02/20 21:30 63 15 112/33 100 10/02/20 21:00 70 12 110/38 97 10/02/20 20:30 80 19 122/49 100 10/02/20 20:25 66 21 113/34 99 10/02/20 20:00 99.3 F 64 64 22 110/36 99 10/02/20 19:30 66 21 124/40 99 10/02/20 19:00 59 L 23 112/31 97 10/02/20 18:30 57 L 23 112/34 97 10/02/20 18:00 60 24 107/32 97 10/02/20 17:30 60 23 114/40 98 10/02/20 17:00 58 L 20 110/38 98 10/02/20 16:30 68 20 114/42 100 10/02/20 16:13 69 26 H 118/42 69 L 10/02/20 16:09 73 120/49 10/02/20 16:00 59 L 76 100 10/02/20 15:00 73 24 120/49 100 10/02/20 14:30 69 23 108/42 100 10/02/20 14:00 68 23 102/30 100 10/02/20 13:30 75 24 100/32 100 10/02/20 13:00 72 24 88/39 99 10/02/20 12:45 74 24 95/41 100 10/02/20 12:30 71 24 94/44 99 10/02/20 12:00 98.9 F 74 76 25 H 102/41 100 10/02/20 11:30 76 26 H 105/44 99 10/02/20 11:00 90 26 H 115/57 98 10/02/20 10:30 79 24 115/52 98 10/02/20 10:08 70 120/52 10/02/20 10:00 79 25 H 120/52 98 10/02/20 09:42 71 111/46 10/02/20 09:30 72 25 H 119/37 97 10/02/20 09:01 74 16 119/37 99 10/02/20 08:30 78 16 117/43 99 10/02/20 08:00 99.5 F 71 85 17 119/37 99 10/02/20 07:30 81 16 105/54 100 10/02/20 07:00 79 16 108/45 100 10/02/20 06:30 86 16 109/53 100 10/02/20 06:08 73 17 100 10/02/20 05:32 74 120/37 100 10/02/20 05:30 72 15 127/44 100 10/02/20 05:00 79 17 134/50 100 10/02/20 04:30 86 15 123/51 100 10/02/20 04:00 83 17 116/44 100 10/02/20 03:30 75 13 116/47 100 10/02/20 03:26 100.6 F H 10/02/20 03:00 74 15 122/45 99 10/02/20 02:30 72 12 124/60 99 10/02/20 02:00 73 16 121/44 99 10/02/20 01:30 73 13 121/44 100 10/02/20 01:04 80 121/44 100 10/02/20 01:00 82 12 119/54 99 10/02/20 00:30 81 14 125/59 99 10/02/20 00:00 99.8 F H 85 14 124/57 100 - Labs and Meds CBC 10/02/20 Range/Units 06:48 WBC 14.2 H (4.5-11.0) K/mm3 RBC 3.92 (3.65-5.03) M/mm3 Hgb 9.6 L (10.1-14.3) gm/dl Hct 31.0 (30.3-42.9) % Plt Count 325 (140-440) K/mm3 Comprehensive Metabolic Panel 10/02/20 Range/Units 06:48 Sodium 147 H (137-145) mmol/L Potassium 4.1 (3.6-5.0) mmol/L Chloride 110.4 H (98-107) mmol/L Carbon Dioxide 28 (22-30) mmol/L BUN 15 (7-17) mg/dL Creatinine 0.8 (0.6-1.2) mg/dL Glucose 134 H (65-100) mg/dL Calcium 9.7 (8.4-10.2) mg/dL
[2020-09-26] MEDS ORDERED: LORazepam 2 MG/ML VIAL IV PRN (13:45)
--- NOTE | 2020-09-26 13:52 | Event Note ---
Date: 09/26/20 I called patient's aunt , STAN Minor at [phone] and discussed in detail, patient's condition, tests and reports, consultants recommendations, poor prognosis, treatment plan[explained in detail the medications and their role in the treatment] pending tests. She has numerous questions, I answered all of them And encouraged her to call back if she has any new questions or concerns. I informed patient's nurse about my conversation with Ms. Deobra Minor.
--- NOTE | 2020-09-26 15:21 | Consultation ---
History of Present Illness Consult date: 09/26/20 Requesting physician: ROLF MEZA Reason for consult: other (Cardiac Arrest with [facility]; AMS) History of present illness: PULMONARY/CCM CONSULT NOTE (Full dictation # [id number]) Please see dictated notes for full details Past History Past Medical History: GERD, other (See HPI) Past Surgical History: No surgical history (Thank you) Social history: single. denies: smoking, alcohol abuse Family history: hypertension Medications and Allergies Allergies Allergy/AdvReac Type Severity Reaction Status Date / Time No Known Allergies Allergy Unverified 06/19/19 11:32 Home Medications Medication Instructions Recorded Confirmed Last Taken Type Amoxicillin [Amoxicillin TAB] 875 mg PO BID #14 tablet 06/19/19 Unknown Rx Esomeprazole Magnesium [NexIUM] 40 mg PO QDAY #30 capsule. 06/19/19 Unknown Rx guaiFENesin [Robitussin] 5 ml PO TID PRN #100 ml 06/19/19 Unknown Rx Active Meds: Active Medications Acetaminophen (Acetaminophen 650 Mg Rect Supp) 650 mg [place] Q6H PRN PRN Reason: Pain MILD(1-3)/Fever >100.5/RUIZ Acetaminophen (Acetaminophen 325 Mg Tab) 650 mg PO Q6H PRN PRN Reason: Pain, Mild (1-3) Last Admin: 09/26/20 05:33 Dose: 650 mg Documented by: Albuterol (Albuterol 2.5 Mg/3 Ml Nebu) 2.5 mg IH Q3HRT PRN PRN Reason: Shortness Of Breath Famotidine (Famotidine 20 Mg/2 Ml Inj) 20 mg IV BID RAMESH Last Admin: 09/26/20 11:00 Dose: 20 mg Documented by: Hydromorphone HCl (Hydromorphone 1 Mg/1 Ml Inj) 0.25 mg IV Q4H PRN PRN Reason: Pain, Moderate (4-6) Last Admin: 09/25/20 19:12 Dose: 0.25 mg Documented by: Hydrophilic Ointment (Lip Therapy Vaseline) 1 applic TP Q2HR PRN PRN Reason: Dry Lips Epinephrine 8 mg/ Sodium (Chloride) 250 mls @ 3.75 mls/hr IV TITR ONE; Protocol Stop: 09/28/20 11:33 Heparin Sodium/Sodium Chloride (Heparin/ 0.45% Nacl-25,000 Unit/500 Ml) 25,000 unit in 500 mls @ 20 mls/hr IV TITRATE RAMESH; Protocol Last Titration: 09/26/20 04:12 Dose: 1,000 units/hr, 20 mls/hr Documented by: Propofol (Diprivan 10 Mg/Ml) 1,000 mg in 100 mls @ 3.201 mls/hr IV TITR RAMESH; Protocol Last Titration: 09/26/20 14:24 Dose: 10 mcg/kg/min, 6.402 mls/hr Documented by: Levetiracetam 750 mg/ Dextrose 107.5 mls @ 400 mls/hr IV Q12HR RAMESH Lorazepam (Lorazepam 2 Mg/Ml Vial) 2 mg IV Q4H PRN PRN Reason: Seizures Multi-Ingred Cream/Lotion/Oil/Oint (Mineral Oil/Petrolatum, White Ophth Oint 3.5 Gm) 1 applic OU Q4HR PRN PRN Reason: Dry Eye(s) Senna/Docusate Sodium (Sennosides/Docusate Sodium 8.6/50 Mg Tab) 1 tab FEEDTUBE BID RAMESH Last Admin: 09/26/20 11:00 Dose: Not Given Documented by: Sodium Chloride (Sodium Chloride 0.9% 10 Ml Flush Syringe) 10 ml IV BID RAMESH Last Admin: 09/26/20 11:01 Dose: 10 ml Documented by: Sodium Chloride (Sodium Chloride 0.9% 10 Ml Flush Syringe) 10 ml IV PRN PRN PRN Reason: LINE FLUSH Physical Examination Vital signs: Vital Signs Pulse Ox 95 09/25/20 16:46 Results - Laboratory Findings CBC and BMP: 09/26/20 05:09 09/26/20 05:09 ABG ABG pH 7.451 (7.320-7.450) H 09/26/20 03:15 POC ABG pCO2 27.1 mmHg (32.0-48.0) L 09/26/20 03:15 POC ABG pO2 106.1 mmHg (83-108) 09/26/20 03:15 POC ABG HCO3 18.5 09/26/20 03:15 ABG O2 Saturation 98.2 (0-100) 09/26/20 03:15 PT/INR, D-dimer PT 13.7 Sec. (12.2-14.9) 09/25/20 18:15 INR 1.00 (0.87-1.13) 09/25/20 18:15 Abnormal lab findings: Abnormal Labs 09/25/20 09/25/20 09/25/20 17:19 17:21 18:15 WBC 13.8 H Hgb 9.9 L MCV 76 L MCH 23 L RDW 17.9 H Lymph % (Auto) Lymph # (Auto) [place] # (Auto) Seg Neutrophils % 78.6 H Seg Neutrophils # 10.8 H APTT ABG pH POC ABG pCO2 26.2 L POC ABG pO2 554.5 H ABG Hemoglobin 9.0 L ABG Oxyhemoglobin 99.0 H ABG Sodium 134.5 L ABG Chloride ABG Glucose 220 H Glucose Lactic Acid Calcium AST ALT Troponin T Albumin HDL Cholesterol Arterial Blood Glucose 220 H Arterial Blood Ionized Calcium 4.2 L Urine WBC (Auto) 14.0 H 09/25/20 09/25/20 09/25/20 18:15 18:15 18:15 WBC Hgb MCV MCH RDW Lymph % (Auto) Lymph # (Auto) [place] # (Auto) Seg Neutrophils % Seg Neutrophils # APTT 21.1 L ABG pH POC ABG pCO2 POC ABG pO2 ABG Hemoglobin ABG Oxyhemoglobin ABG Sodium ABG Chloride ABG Glucose Glucose 113 H Lactic Acid 2.60 H* Calcium AST 162 H ALT 131 H Troponin T 0.096 H Albumin HDL Cholesterol Arterial Blood Glucose Arterial Blood Ionized Calcium Urine WBC (Auto) 09/25/20 09/25/20 09/26/20 23:13 23:13 03:15 WBC Hgb MCV MCH RDW Lymph % (Auto) Lymph # (Auto) [place] # (Auto) Seg Neutrophils % Seg Neutrophils # APTT ABG pH 7.451 H POC ABG pCO2 27.1 L POC ABG pO2 ABG Hemoglobin 10.4 L ABG Oxyhemoglobin ABG Sodium 135.2 L ABG Chloride 108.0 H ABG Glucose 137 H Glucose Lactic Acid 2.90 H* Calcium AST ALT Troponin T 0.170 H* D Albumin HDL Cholesterol 60 H Arterial Blood Glucose 137 H Arterial Blood Ionized Calcium 4.2 L Urine WBC (Auto) 09/26/20 09/26/20 09/26/20 05:09 05:09 05:09 WBC 15.8 H Hgb 10.0 L MCV 77 L MCH 24 L RDW 17.8 H Lymph % (Auto) 7.2 L Lymph # (Auto) 1.1 L [place] # (Auto) 1.0 H Seg Neutrophils % 86.1 H Seg Neutrophils # 13.6 H APTT ABG pH POC ABG pCO2 POC ABG pO2 ABG Hemoglobin ABG Oxyhemoglobin ABG Sodium ABG Chloride ABG Glucose Glucose 114 H Lactic Acid 2.40 H* Calcium 8.1 L AST 112 H ALT 103 H Troponin T Albumin 3.8 L HDL Cholesterol Arterial Blood Glucose Arterial Blood Ionized Calcium Urine WBC (Auto)
[2020-09-26 16:25] LABS: C-Reactive Protein 4.3 mg/dL (0.00-1.30)
[2020-09-26] MEDS: levETIRAcetam 750 MG in DEXTROSE 5% IN WATER 100 ML IV SCH (21:16)
[2020-09-26] MEDS: HEPARIN/ 0.45% NACL DRIP 25,000 UNIT/500 ML BAG IV SCH (21:20)
--- NOTE | 2020-09-26 23:12 | Consultation ---
DATE OF CONSULTATION: 09/26/2020 PULMONARY CRITICAL CARE CONSULTATION CONSULTING PHYSICIAN: Dr. Ronnell Acosta. REASON FOR CONSULTATION: Acute hypoxemic respiratory failure, on mechanical ventilatory support. Cardiac arrest with return of spontaneous circulation. CHIEF COMPLAINT AND HISTORY OF PRESENT ILLNESS: The patient is a 45-year-old female with a past medical history significant amongst other things for obesity and obesity hypoventilation syndrome, who was brought into the Emergency Room for evaluation. According to the records, EMS stated the patient had called 911 for shortness of breath. When they arrived at the patient's house, she went into cardiac arrest negative. They gave two rounds of epinephrine, bicarbonate, defibrillator the patient twice and the patient was intubated actually by the emergency medical services. Evaluation in the ER, although, so that the patient had right mainstem intubation. The patient was later found to be having seizure-type activity while in the ER. It is unclear if she had another episode of cardiac arrest while in the ER. She was intubated and stabilized and brought up to the intensive care unit where we are asked to assist with management. When I stopped by to see her, she was resting in bed, she was sedated, I believe she had been on Ativan drip earlier. She had been having myoclonic type jerks, seizure activities earlier, but that has since stopped. She do not have any history of vomiting or overt aspiration. Records mention the patient is not a smoker or drinker. The above is unfortunately as much of the history of presentation as I have COVID-19 vaccination status and/or exposure history is also unknown. PAST MEDICAL HISTORY: Again, obesity hypoventilation syndrome, obesity, gastroesophageal reflux disease. PAST SURGICAL HISTORY: Unknown. MEDICATIONS: She was on at the time I stopped by to see were reviewed, pertinent medications include the following: Tylenol 650 mg p.o. q.6 hours p.r.n. mild pain or fever. All p.o. meds via the feeding tube. Albuterol nebulizer treatments 2.5 mg nebulized q.3 hours p.r.n. shortness of breath, epinephrine drip had been going at 2 mcg per minute, Pepcid 20 mg IV b.i.d., heparin drip had been started at 1000 units per hour ACS protocol, Keppra had been going on 500 mg IV q.12 hours. She had been on Ativan drip. Docusate sodium 1 tablet p.o. b.i.d. She received a dose of cefepime 2 g in the Emergency Room. ALLERGIES: No known drug allergies. DIET: Obese lady, acute weight loss or gain history is unknown. SOCIAL HISTORY: Apparently lives in the community. The family seems to have denied alcohol, tobacco, or illicit drug use or abuse at presentation. FAMILY HISTORY: There is a family history of hypertension. Family history otherwise unknown. REVIEW OF SYSTEMS: Unobtainable secondary to the patient's medical and mental condition. Since she has been here, no gross hematochezia or melena, no gross hematuria, no hematemesis, no bloody tracheal secretions. They have witnessed seizure type activity. Review of systems otherwise unobtainable or as in the body of history above. PHYSICAL EXAMINATION: VITAL SIGNS: At presentation, she was afebrile, temperature 98.0 degrees Fahrenheit, pulse of 115, respiratory rate of 14, blood pressure 84/47, O2 sats were 95%, inspired oxygen concentration at that time was not recorded. T-max since she has been here is 102.5 degrees Fahrenheit. Her blood pressure now is 141/76. GENERAL: She is a middle-aged obese female. Normocephalic and atraumatic. Resting in bed with mildly increased respiratory effort at rest. HEAD, EYES, EARS, NOSE AND THROAT: Anicteric. No conjunctival erythema. Oropharynx was moist. Endotracheal tube was taped at the lips around 24 cm. NECK: Grossly, there were no palpable lymph nodes in the supraclavicular or submandibular lymph node chains. LUNGS: Auscultation of both lung boothe revealed clear bilateral lung boothe. Good bilateral air movement. No wheezing. HEART: Sounds 1 and 2 are heard, regular rate and rhythm at the time of my evaluation without overt rubs or murmurs. ABDOMEN: Soft, full, protuberant. Bowel sounds are positive, nontender, no palpable hepatosplenomegaly. EXTREMITIES: Without overt digital clubbing, no cyanosis, no pedal edema. Pedal pulses are 2+ bilaterally. NEUROLOGIC: Pupils are equal, round, about 3 mm, reactive to light. Extraocular muscle movements could not be assessed. She had an upward gaze. She seemed to have spontaneous movements and withdrawal movements to all extremities. No significant posturing to a sternal rub. SKIN: Normal turgor in the areas examined without overt cellulitis or rash. Please see the wound care nurses' notes for full description of her skin. PSYCHIATRIC: Mood and affect could not be assessed. She was sedated. LABORATORY DATA: From my review are as follows: Admission white cell count 13,800, hemoglobin 9.9, hematocrit 32.6, platelet count 359. No manual differential. INR was 1.00. Arterial blood gas showed a pH of 7.40, pCO2 of 26, pO2 of 555 at presentation that was on 100% FIO2. Today, it is 7.45 on the pH with a pCO2 of 27, pO2 of 106 and that is on 30% FiO2 on the mechanical ventilator, assist control, PRVC, AC, tidal volume 500, PEEP of 6, rate of 14. Serum sodium otherwise 139, potassium 4.9, chloride 101, bicarbonate 25, BUN 12, creatinine 1.2, glucose 113. Lactic acid level was normal at presentation, but is up to 2.4 today. AST up at 162, ALT was 131 that was at presentation, trending downwards now. Troponin is at 0.17, unclear if there is going to be a peek or not. Urinalysis negative for nitrites and leukocyte esterase. She did have 14 white cells per high power field. Urine drug screen was presumptive negative. Coronavirus PCR was negative. Two sets of blood cultures are no growth to date. She had multiple imaging: Chest x-ray at presentation, borderline cardiomegaly, perhaps right mild perihilar congestion. A CT scan of the brain was done, it was negative for an acute intracranial process. A CT scan of the chest was done, it was a CT angiogram good contrast filling, I do not see any pulmonary emboli. She has bibasilar and dependent consolidative changes consistent with an aspiration pneumonia, significant motion artifact makes interpretation a little bit difficult. Chest x-ray today ET tube was in good position. It seems about 3-4 cm above the marian. A CT angio of the head has not been done. ASSESSMENT: 1. Cardiac arrest with return of spontaneous circulation. 2. Acute respiratory failure, on mechanical ventilatory support. 3. Acute toxic metabolic encephalopathy. 4. Possible anoxic encephalopathy. 5. Obesity. 6. History of obesity hypoventilation syndrome. 7. Leukocytosis. 8. Likely aspiration pneumonia, bilateral. 9. Anemia that is microcytic. 10. Lactic acidosis. 11. Elevated serum transaminases. 12. Non-ST elevation myocardial infarction. PLAN: I fear for her mental status recovery in the long-term, hopefully she shows some improvement. She does have femoral central line at this point in time, she is not on any vasopressors. We will discontinue that a midline will be placed in light of her body habitus and difficulty of nursing staff getting a peripheral IV access. From a respiratory standpoint, oxygen will be weaned to keep sats greater than or equal to about 90%. Aspiration precautions will be maintained. I will get a procalcitonin level and lactic acid level and follow her clinically. She did receive cefepime in the ER. I think I would treat her empirically with Levaquin for 4 more days for possible community-acquired pneumonia/aspiration pneumonia. Procalcitonin level, lactic acid levels will help guide clinical decision making. I have asked that the rate to be reduced to 12 and the tidal volumes to 450s in light of the hypoventilation at this point and respiratory alkalosis. Enteral nutrition will be the feeding modality of choice. Nutrition consult has been placed. She is appropriately on GI prophylaxis. She is fully anticoagulated. Cardiology evaluation is ongoing. Flu and pneumonia vaccination will be addressed per protocol. Thank you very much for the consult. We will follow along and make further recommendations as picture progresses/becomes clearer. She is critically ill on life-sustaining interventions including full mechanical ventilatory support, now being weaned off vasopressors at very high risk of from cardiopulmonary and neurologic system decompensation. At this time was spent about 35 minutes of critical care time without overlap and excluding any procedural time that is necessary. TID: [id number] RECEIPT: [id number] OMAR/CARLOZ RIOS
[2020-09-27 05:00] LABS: Hematocrit 28.6 % (30.3-42.9)
--- NOTE | 2020-09-27 06:04 | XRay Report ---
CHEST 1 VIEW INDICATION / CLINICAL INFORMATION: follow up respiratory failure. COMPARISON: 09/26/2020 FINDINGS: SUPPORT DEVICES: Stable and satisfactory positioning of ET tube and NG tube. HEART / MEDIASTINUM: Stable mild cardiomegaly. LUNGS / PLEURA: Previously noted bilateral pulmonary opacities appear much improved. The lungs are be tter aerated. No pneumothorax. ADDITIONAL FINDINGS: No significant additional findings. IMPRESSION: 1. Much improved appearance of the chest radiograph with improving bilateral pulmonary opacities. Signer Name: Amalia Landers MD Signed: 09/27/2020 5:59 AM Workstation Name: [id number]
--- NOTE | 2020-09-27 09:22 | Progress Note ---
Assessment and Plan Assessment and plan: --Out of the hospital cardiac arrest; Current Visit: Yes Status: Acute Patient treated" with ACLS protocol with return of perfusing cardiac rhythm, cardiology evaluation noted and appreciated, Follow echocardiogram LV function ejection fraction --Anoxic brain injury; Current Visit: Yes Status: Acute CT head no acute abnormality noted Neurochecks, supportive care Neurology consult requested, follow evaluation and recommendations neuro work-up per neurology, EEG when patient is off sedation -- Acute hypoxemic respiratory failure Current Visit: Yes Status: Acute Patient intubated and on ventilatory support: Critical care team following, wean vent as tolerated, Continue supportive care --NSTEMI (non-ST elevated myocardial infarction) Current Visit: Yes Status: Acute Due to cardiac arrest Follow cardiology recommendations -- Sepsis Current Visit: Yes Status: Acute Sepsis protocol: Chest x-ray, CBC, BMP, urinalysis, Continue empiric IV antibiotic therapy, IV fluid resuscitation therapy, Follow cultures --Leukocytosis; due to sepsis treat the underlying cause Follow cultures -- lactic acidosis Current Visit: Yes Status: Acute Plan to address problem: Treat sepsis, IV fluid resuscitation therapy, BMP, repeat BMP in a.m. Serial lactic acid level. -- Pneumonia Current Visit: Yes Status: Acute Plan to address problem: Pneumonia protocol: IV antibiotic therapy, chest x-ray, CBC, CMP, blood culture, -- Seizure disorder Current Visit: Yes Status: Acute Plan to address problem: Antiepilepsy therapy with Keppra, seizure precautions. --Obesity; BMI 39.1 --DVT prophylaxis Current Visit: Yes Status: Acute Plan to address problem: SCD to bilateral lower extremities while in bed, therapeutic anticoagulation --full CODE STATUS Poor prognosis I discussed with NOK patient's aunt Ms. Debora Minor and update patient's critical condition, poor prognosis , treatment plan and CODE STATUS. Full code The high probability of a clinically significant, sudden or life threatening deterioration of the [cardiac, pulmonary, renal, neuro] system(s) required my full and direct attention, intervention and personal management. The aggregate critical care time was [35] minutes. This time is in addition to time spent performing reported procedures but includes the following: [x] Data Review and interpretation [x] Patient assessment and monitoring of vital signs [x] Documentation [x] Medication orders and management 09/27/2020; patient remains unresponsive, intubated on ventilatory support Follow neurology evaluation and recommendations Very poor prognosis, I spoke with patient's aunt Ms. Debora Minor 09/26/2020 About patient's condition , tests and reports and very poor prognosis. She verbalized understanding. I discussed the CODE STATUS Full code at this point History Interval history: I have seen and examined the patient at the bedside this morning in ICU Patient's chart medications reviewed No new overnight events reported by the nursing Patient remains intubated on ventilatory support Unresponsive Vital signs noted Hospitalist Physical - Constitutional Vitals: Temp Pulse Resp BP Pulse Ox 100.4 F H 114 H 14 152/86 97 09/27/20 07:00 09/27/20 08:30 09/27/20 08:30 09/27/20 08:30 09/27/20 08:30 General appearance: Present: no acute distress, obese (Morbidly obese), other (Intubated on ventilatory support, unresponsive) - EENT Eyes: Absent: scleral icterus, conjunctival injection - Neck Neck: Present: supple, other (ET tube and Dobbhoff in place) - Respiratory Respiratory effort: normal Respiratory: bilateral: diminished, rhonchi, negative: rales, wheezing - Cardiovascular Rhythm: regular Heart Sounds: Present: S1 & S2 (Tachycardia) - Extremities Extremities: no ischemia, No edema - Abdominal General gastrointestinal: soft, non-distended, normal bowel sounds - Integumentary Integumentary: Present: clear, warm - Psychiatric Psychiatric: other (Unresponsive) - Neurologic Neurologic: other (Unresponsive) HEART Score - HEART Score Troponin: Troponin T 0.170 ng/mL (0.00-0.029) H* D 09/25/20 23:13 Results - Labs CBC & Chem 7: 09/27/20 04:41 09/26/20 05:09 Labs: Laboratory Last Values WBC 15.8 K/mm3 (4.5-11.0) H 09/26/20 05:09 RBC 4.13 M/mm3 (3.65-5.03) 09/26/20 05:09 Hgb 9.0 gm/dl (10.1-14.3) L 09/27/20 04:41 Hct 28.6 % (30.3-42.9) L 09/27/20 04:41 MCV 77 fl (79-97) L 09/26/20 05:09 MCH 24 pg (28-32) L 09/26/20 05:09 MCHC 32 % (30-34) 09/26/20 05:09 RDW 17.8 % (13.2-15.2) H 09/26/20 05:09 Plt Count 296 K/mm3 (140-440) 09/27/20 04:41 Lymph % (Auto) 7.2 % (13.4-35.0) L 09/26/20 05:09 [place] % (Auto) 6.4 % (0.0-7.3) 09/26/20 05:09 Eos % (Auto) 0.0 % (0.0-4.3) 09/26/20 05:09 Baso % (Auto) 0.3 % (0.0-1.8) 09/26/20 05:09 Lymph # (Auto) 1.1 K/mm3 (1.2-5.4) L 09/26/20 05:09 [place] # (Auto) 1.0 K/mm3 (0.0-0.8) H 09/26/20 05:09 Eos # (Auto) 0.0 K/mm3 (0.0-0.4) 09/26/20 05:09 Baso # (Auto) 0.1 K/mm3 (0.0-0.1) 09/26/20 05:09 Seg Neutrophils % 86.1 % (40.0-70.0) H 09/26/20 05:09 Seg Neutrophils # 13.6 K/mm3 (1.8-7.7) H 09/26/20 05:09 PT 13.7 Sec. (12.2-14.9) 09/25/20 18:15 INR 1.00 (0.87-1.13) 09/25/20 18:15 APTT 21.1 Sec. (24.2-36.6) L 09/25/20 18:15 Heparin Anti-Xa Level 0.75 U.I./ml (0.3-0.7) H 09/27/20 04:41 ABG pH 7.445 (7.320-7.450) 09/27/20 03:33 POC ABG pCO2 36.8 mmHg (32.0-48.0) 09/27/20 03:33 POC ABG pO2 141.6 mmHg (83-108) H 09/27/20 03:33 POC ABG HCO3 24.7 09/27/20 03:33 ABG O2 Saturation 98.6 (0-100) 09/27/20 03:33 POC ABG Base Excess 0.7 09/27/20 03:33 ABG Hemoglobin 9.3 (12.0-17.5) L 09/27/20 03:33 ABG Oxyhemoglobin 97.7 (94-98) 09/27/20 03:33 ABG Methemoglobin 0.3 (0.0-1.5) 09/27/20 03:33 ABG Sodium 138.4 mmol/L (136.0-145.0) 09/27/20 03:33 ABG Potassium 3.2 mmol/L (3.40-4.50) L 09/27/20 03:33 ABG Chloride 108.0 mmol/L (98-107) H 09/27/20 03:33 ABG Glucose 118 mg/dL (65-95) H 09/27/20 03:33 Carboxyhemoglobin 0.6 (0.5-1.5) 09/27/20 03:33 FiO2 % 30.0 09/27/20 03:33 Sodium 139 mmol/L (137-145) 09/26/20 05:09 Potassium 3.9 mmol/L (3.6-5.0) D 09/26/20 05:09 Chloride 103.9 mmol/L (98-107) 09/26/20 05:09 Carbon Dioxide 23 mmol/L (22-30) 09/26/20 05:09 Anion Gap 16 mmol/L 09/26/20 05:09 BUN 13 mg/dL (7-17) 09/26/20 05:09 Creatinine 1.0 mg/dL (0.6-1.2) 09/26/20 05:09 Estimated GFR > 60 ml/min 09/26/20 05:09 BUN/Creatinine Ratio 13 % 09/26/20 05:09 Glucose 114 mg/dL (65-100) H 09/26/20 05:09 POC Glucose 87 mg/dL (70-105) 09/26/20 21:07 Lactic Acid 1.00 mmol/L (0.7-2.0) 09/27/20 04:41 Calcium 8.1 mg/dL (8.4-10.2) L 09/26/20 05:09 Phosphorus 2.20 mg/dL (2.5-4.5) L 09/26/20 15:45 Magnesium 1.90 mg/dL (1.7-2.3) 09/26/20 15:45 Total Bilirubin 0.40 mg/dL (0.1-1.2) 09/26/20 05:09 AST 112 units/L (5-40) H 09/26/20 05:09 ALT 103 units/L (7-56) H 09/26/20 05:09 Alkaline Phosphatase 97 units/L (35-129) 09/26/20 05:09 Troponin T 0.170 ng/mL (0.00-0.029) H* D 09/25/20 23:13 C-Reactive Protein 4.30 mg/dL (0.00-1.30) H 09/26/20 15:45 Total Protein 7.1 g/dL (6.3-8.2) 09/26/20 05:09 Albumin 3.8 g/dL (3.9-5) L 09/26/20 05:09 Albumin/Globulin Ratio 1.2 % 09/26/20 05:09 Triglycerides 40 mg/dL (2-149) 09/25/20 23:13 Cholesterol 132 mg/dL (50-199) 09/25/20 23:13 LDL Cholesterol Direct 66 mg/dL (50-130) 09/25/20 23:13 HDL Cholesterol 60 mg/dL (40-59) H 09/25/20 23:13 Cholesterol/HDL Ratio 2.20 % 09/25/20 23:13 Arterial Blood Glucose 118 mg/dL (65-95) H 09/27/20 03:33 Arterial Blood Ionized Calcium 4.2 mg/dL (4.6-5.3) L 09/27/20 03:33 Urine Color Yellow (Yellow) 09/25/20 17:19 Urine Turbidity Cloudy (Clear) 09/25/20 17:19 Urine pH 7.0 (5.0-7.0) 09/25/20 17:19 Ur Specific [place] 1.012 (1.003-1.030) 09/25/20 17:19 Urine Protein >500 mg/dL (Negative) 09/25/20 17:19 Urine Glucose (UA) 50 mg/dL (Negative) 09/25/20 17:19 Urine Ketones Neg mg/dL (Negative) 09/25/20 17:19 Urine Blood Sm (Negative) 09/25/20 17:19 Urine Nitrite Neg (Negative) 09/25/20 17:19 Urine Bilirubin Neg (Negative) 09/25/20 17:19 Urine Urobilinogen < 2.0 mg/dL (<2.0) 09/25/20 17:19 Ur Leukocyte Esterase Neg (Negative) 09/25/20 17:19 Urine WBC (Auto) 14.0 /HPF (0.0-6.0) H 09/25/20 17:19 Urine RBC (Auto) 101.0 /HPF (0.0-6.0) 09/25/20 17:19 U Epithel Cells (Auto) 1.0 /HPF (0-13.0) 09/25/20 17:19 Urine Bacteria (Auto) 1+ /HPF (Negative) 09/25/20 17:19 Urine HCG, Qual Negative (Negative) 09/25/20 17:19 Urine Opiates Screen Presumptive negative 09/25/20 17:19 Urine Methadone Screen Presumptive negative 09/25/20 17:19 Ur Barbiturates Screen Presumptive negative 09/25/20 17:19 Ur Phencyclidine Scrn Presumptive negative 09/25/20 17:19 Ur Amphetamines Screen Presumptive negative 09/25/20 17:19 U Benzodiazepines Scrn Presumptive negative 09/25/20 17:19 Urine Cocaine Screen Presumptive negative 09/25/20 17:19 U Marijuana (THC) Screen Presumptive negative 09/25/20 17:19 Drugs of Abuse Note Disclamer 09/25/20 17:19 Coronavirus (PCR) Negative (Negative) 09/26/20 Unknown Blood Type B POSITIVE 09/25/20 19:00 Antibody Screen Negative 09/25/20 19:00 Microbiology: Microbiology 09/25/20 18:15 Peripheral/Venous Blood Culture - Preliminary NO GROWTH AFTER 24 HOURS 09/25/20 18:15 Peripheral/Venous Blood Culture - Preliminary NO GROWTH AFTER 24 HOURS Grace/IV: Voiding Method Indwelling Catheter Active Medications - Current Medications Current Medications: Generic Name Dose Route Start Last Admin Trade Name Freq PRN Reason Stop Dose Admin Acetaminophen 650 mg 09/25/20 18:45 Acetaminophen 650 Mg Rect Supp MS Q6H PRN Pain MILD(1-3)/Fever >100.5/RUIZ Acetaminophen 650 mg 09/25/20 18:49 09/26/20 17:44 Acetaminophen 325 Mg Tab PO 650 mg Q6H PRN Administration Pain, Mild (1-3) Albuterol 2.5 mg 09/25/20 18:45 Albuterol 2.5 Mg/3 Ml Nebu IH Q3HRT PRN Shortness Of Breath Famotidine 20 mg 09/25/20 22:00 09/26/20 21:16 Famotidine 20 Mg/2 Ml Inj IV 20 mg BID RAMESH Administration Hydromorphone HCl 0.25 mg 09/25/20 18:49 09/25/20 19:12 Hydromorphone 1 Mg/1 Ml Inj IV 0.25 mg Q4H PRN Administration Pain, Moderate (4-6) Hydrophilic Ointment 1 applic 09/25/20 16:52 Lip Therapy Vaseline TP Q2HR PRN Dry Lips Heparin Sodium/Sodium Chloride 25,000 unit in 500 mls @ 20 mls/hr 09/25/20 21:00 09/27/20 05:34 Heparin/ 0.45% Nacl-25,000 Unit/500 Ml IV 900 units/hr TITRATE RAMESH 18 mls/hr Titration Protocol 1,000 UNITS/HR Propofol 1,000 mg in 100 mls @ 3.201 mls/hr 09/26/20 14:00 09/27/20 01:20 Diprivan 10 Mg/Ml IV 10 mcg/kg/min TITR RAMESH 6.402 mls/hr Administration Protocol 5 MCG/KG/MIN Levetiracetam 750 mg/ Dextrose 107.5 mls @ 400 mls/hr 09/26/20 22:00 09/26/20 21:16 IV 400 mls/hr Q12HR RAMESH Administration Levofloxacin/Dextrose 750 mg in 150 mls @ 100 mls/hr 09/27/20 10:00 Levaquin 750mg/150ml IV 09/30/20 11:29 Q24H RAMESH Protocol Lorazepam 2 mg 09/26/20 13:45 Lorazepam 2 Mg/Ml Vial IV Q4H PRN Seizures Multi-Ingred Cream/Lotion/Oil/Oint 1 applic 09/25/20 16:52 Mineral Oil/Petrolatum, White Ophth Oint 3.5 Gm OU Q4HR PRN Dry Eye(s) Senna/Docusate Sodium 1 tab 09/25/20 22:00 09/26/20 21:22 Sennosides/Docusate Sodium 8.6/50 Mg Tab FEEDTUBE Not Given BID RAMESH Sodium Chloride 10 ml 09/25/20 22:00 09/26/20 21:16 Sodium Chloride 0.9% 10 Ml Flush Syringe IV 10 ml BID RAMESH Administration Sodium Chloride 10 ml 09/25/20 18:45 Sodium Chloride 0.9% 10 Ml Flush Syringe IV PRN PRN LINE FLUSH
[2020-09-27] MEDS: FAMOTIDINE 20 MG/2 ML INJ IV SCH ×2 (09:37→21:29)
[2020-09-27] MEDS: SENNOSIDES/DOCUSATE SODIUM 8.6/50 MG TAB FEEDTUBE SCH ×2 (09:38→21:28)
[2020-09-27] MEDS: levETIRAcetam 750 MG in DEXTROSE 5% IN WATER 100 ML IV SCH ×2 (09:38→21:28)
--- NOTE | 2020-09-27 10:31 | Progress Note ---
Assessment and Plan Dilated Cardiomyopathy, uncertain duration an echo revealed a severely decrease LV systolic function, EF 20-25%. Witnessed OOH cardiac arrest ECG - No ischemic findings CT brain - NAP CT chest - no PE, consolidative changes at bases bilaterally suggesting aspiration Acute respiratory failure Non-specific troponin Recommendations: Guideline directed medical therapy for dilated cardiomyopathy as tolerated. Further cardiac work-up will depend on clinical course. Subjective Date of service: 09/27/20 Interval history: Remains unresponsive on the ventilator. Objective Vital Signs Temp Pulse Pulse Resp BP Pulse Ox 09/27/20 08:30 114 H 14 152/86 97 09/27/20 08:17 116 H 152/86 96 09/27/20 08:16 114 H 13 152/86 97 09/27/20 08:00 115 H 114 H 15 152/86 97 09/27/20 07:46 115 H 16 158/85 96 09/27/20 07:30 113 H 13 158/85 97 09/27/20 07:00 100.4 F H 114 H 12 158/85 97 09/27/20 06:30 120 H 15 142/76 96 09/27/20 06:00 117 H 15 142/76 97 09/27/20 05:00 118 H 13 150/80 97 09/27/20 04:36 115 H 146/75 100 09/27/20 04:30 117 H 14 146/75 99 09/27/20 04:00 99.6 F 115 H 108 H 14 146/75 99 09/27/20 03:00 115 H 15 153/77 98 09/27/20 02:00 114 H 13 146/78 100 09/27/20 01:00 112 H 15 148/76 99 09/27/20 00:56 115 H 148/77 99 09/27/20 00:30 114 H 15 148/77 99 09/27/20 00:00 111 H 108 H 13 148/77 99 09/26/20 23:31 110 H 14 143/77 99 09/26/20 23:30 109 H 16 143/77 99 09/26/20 23:20 100.3 F H 09/26/20 23:00 110 H 14 143/77 99 09/26/20 22:30 111 H 14 134/71 99 09/26/20 22:00 109 H 13 136/75 100 09/26/20 21:30 108 H 15 134/71 99 09/26/20 21:00 108 H 16 134/71 99 09/26/20 20:30 109 H 13 130/69 100 09/26/20 20:00 99.2 F 114 H 108 H 14 148/76 98 09/26/20 19:30 111 H 14 123/65 100 09/26/20 19:00 113 H 16 123/65 99 09/26/20 18:30 114 H 17 124/65 100 09/26/20 18:00 113 H 16 132/71 100 09/26/20 17:30 114 H 16 124/65 09/26/20 17:00 114 H 17 124/65 99 09/26/20 16:50 114 H 16 135/105 09/26/20 16:40 115 H 16 135/105 09/26/20 16:30 114 H 16 135/105 09/26/20 16:20 114 H 17 135/105 09/26/20 16:10 115 H 16 135/105 09/26/20 16:00 101.5 F H 113 H 113 H 12 135/105 09/26/20 15:50 112 H 16 141/77 09/26/20 15:41 114 H 135/105 09/26/20 15:40 112 H 16 141/77 09/26/20 15:30 114 H 19 141/77 98 09/26/20 15:20 114 H 17 141/77 99 09/26/20 15:10 114 H 18 141/77 09/26/20 15:00 116 H 18 141/77 98 09/26/20 14:50 114 H 19 141/76 97 09/26/20 14:40 112 H 18 141/76 97 09/26/20 14:30 112 H 16 141/76 98 09/26/20 14:00 113 H 18 141/76 99 09/26/20 13:30 114 H 16 137/71 98 09/26/20 13:00 114 H 17 137/71 99 09/26/20 12:40 114 H 15 139/72 96 09/26/20 12:30 115 H 17 139/72 100 09/26/20 12:00 100.2 F H 116 H 119 H 14 137/71 09/26/20 11:31 113 H 15 133/75 100 09/26/20 11:00 115 H 17 133/75 100 09/26/20 10:31 120 H 13 137/74 99 - Physical Examination General: Other (intubated) Cardiac: Positive: Reg Rate and Rhythm - Labs and Meds CBC 09/27/20 Range/Units 04:41 Hgb 9.0 L (10.1-14.3) gm/dl Hct 28.6 L (30.3-42.9) % Plt Count 296 (140-440) K/mm3
--- NOTE | 2020-09-27 11:54 | Consultation ---
History of Present Illness Consult date: 09/27/20 Chief complaint: Coma History of present illness: 5 YO Female with Obesity Hypoventilation Syndrome, GERD presents to ED for evaluation. Patient is intubated and on ventilatory support at the time my evaluation is unable to provide history. Patient history taken from EMS staff, ED staff. As per staff EMS was notified for shortness of breath. Upon arrival the patient was found to be in distress and subsequently developed cardiac arrest. Patient was treated in accordance with ACLS protocol, as well as intubated in the field and subsequently transported to [facility] for further care and evaluation of the aforementioned symptoms. The patient was seen and evaluated in the emergency department. All lab and imaging studies reviewed. Patient was f ound to have persistent respiratory failure and was maintained on ventilatory support. Patient found to have sepsis, pneumonia, seizure disorder, metabolic acidosis, as well as NSTEMI.. Cardiology team consulted. Patient initiated on therapeutic anticoagulation as well as sepsis protocol and admitted to ICU. No further history is obtainable. No prior admission for review. All medication listed at time of admission has been reconciled. The patient was evaluated today atb 11.49 am , per the Nurse no clinical improvement in the last 24 hours , no seizure reported . Past History Past Medical History: GERD, other (See HPI) Past Surgical History: No surgical history (Thank you) Social history: single. denies: smoking, alcohol abuse Family history: hypertension Medications and Allergies Allergies Allergy/AdvReac Type Severity Reaction Status Date / Time No Known Allergies Allergy Unverified 06/19/19 11:32 Home Medications Medication Instructions Recorded Confirmed Last Taken Type Amoxicillin [Amoxicillin TAB] 875 mg PO BID #14 tablet 06/19/19 Unknown Rx Esomeprazole Magnesium [NexIUM] 40 mg PO QDAY #30 capsule. 06/19/19 Unknown Rx guaiFENesin [Robitussin] 5 ml PO TID PRN #100 ml 06/19/19 Unknown Rx Active Meds: Active Medications Acetaminophen (Acetaminophen 650 Mg Rect Supp) 650 mg VT Q6H PRN PRN Reason: Pain MILD(1-3)/Fever >100.5/RUIZ Acetaminophen (Acetaminophen 325 Mg Tab) 650 mg PO Q6H PRN PRN Reason: Pain, Mild (1-3) Last Admin: 09/26/20 17:44 Dose: 650 mg Documented by: Albuterol (Albuterol 2.5 Mg/3 Ml Nebu) 2.5 mg IH Q3HRT PRN PRN Reason: Shortness Of Breath Carvedilol (Carvedilol 6.25 Mg Tab) 6.25 mg PO BID RAMESH Famotidine (Famotidine 20 Mg/2 Ml Inj) 20 mg IV BID RAMESH Last Admin: 09/27/20 09:37 Dose: 20 mg Documented by: Hydromorphone HCl (Hydromorphone 1 Mg/1 Ml Inj) 0.25 mg IV Q4H PRN PRN Reason: Pain, Moderate (4-6) Last Admin: 09/25/20 19:12 Dose: 0.25 mg Documented by: Hydrophilic Ointment (Lip Therapy Vaseline) 1 applic TP Q2HR PRN PRN Reason: Dry Lips Heparin Sodium/Sodium Chloride (Heparin/ 0.45% Nacl-25,000 Unit/500 Ml) 25,000 unit in 500 mls @ 20 mls/hr IV TITRATE RAMESH; Protocol Last Titration: 09/27/20 05:34 Dose: 900 units/hr, 18 mls/hr Documented by: Propofol (Diprivan 10 Mg/Ml) 1,000 mg in 100 mls @ 3.201 mls/hr IV TITR RAMESH; Protocol Last Admin: 09/27/20 01:20 Dose: 10 mcg/kg/min, 6.402 mls/hr Documented by: Levetiracetam 750 mg/ Dextrose 107.5 mls @ 400 mls/hr IV Q12HR RAMESH Last Admin: 09/27/20 09:38 Dose: 400 mls/hr Documented by: Levofloxacin/Dextrose (Levaquin 750mg/150ml) 750 mg in 150 mls @ 100 mls/hr IV Q24H RAMESH; Protocol Stop: 09/30/20 11:29 Last Admin: 09/27/20 09:38 Dose: 100 mls/hr Documented by: Lisinopril (Lisinopril 5 Mg Tab) 5 mg PO QDAY RAMESH Lorazepam (Lorazepam 2 Mg/Ml Vial) 2 mg IV Q4H PRN PRN Reason: Seizures Multi-Ingred Cream/Lotion/Oil/Oint (Mineral Oil/Petrolatum, White Ophth Oint 3.5 Gm) 1 applic OU Q4HR PRN PRN Reason: Dry Eye(s) Senna/Docusate Sodium (Sennosides/Docusate Sodium 8.6/50 Mg Tab) 1 tab FEEDTUBE BID [facility] Last Admin: 09/27/20 09:38 Dose: 1 tab Documented by: Sodium Chloride (Sodium Chloride 0.9% 10 Ml Flush Syringe) 10 ml IV BID [facility] Last Admin: 09/27/20 09:39 Dose: 10 ml Documented by: Sodium Chloride (Sodium Chloride 0.9% 10 Ml Flush Syringe) 10 ml IV PRN PRN PRN Reason: LINE FLUSH Physical Examination - Vital Signs Vital Signs: Vital Signs Pulse Ox 95 09/25/20 16:46 - Physical Exam Narrative exam: The patient is intubated , no major gag noted, some oculcephalic movement noted . No verbal input . Results - Laboratory Findings CBC and BMP: 09/27/20 04:41 09/26/20 05:09 Abnormal Lab Findings: Abnormal Labs 09/25/20 09/25/20 09/25/20 17:19 17:21 18:15 WBC 13.8 H Hgb 9.9 L Hct MCV 76 L MCH 23 L RDW 17.9 H Lymph % (Auto) Lymph # (Auto) [place] # (Auto) Seg Neutrophils % 78.6 H Seg Neutrophils # 10.8 H APTT Heparin Anti-Xa Level ABG pH POC ABG pCO2 26.2 L POC ABG pO2 554.5 H ABG Hemoglobin 9.0 L ABG Oxyhemoglobin 99.0 H ABG Sodium 134.5 L ABG Potassium ABG Chloride ABG Glucose 220 H Glucose Lactic Acid Calcium Phosphorus AST ALT Troponin T C-Reactive Protein Albumin HDL Cholesterol Arterial Blood Glucose 220 H Arterial Blood Ionized Calcium 4.2 L Urine WBC (Auto) 14.0 H 09/25/20 09/25/20 09/25/20 18:15 18:15 18:15 WBC Hgb Hct MCV MCH RDW Lymph % (Auto) Lymph # (Auto) [place] # (Auto) Seg Neutrophils % Seg Neutrophils # APTT 21.1 L Heparin Anti-Xa Level ABG pH POC ABG pCO2 POC ABG pO2 ABG Hemoglobin ABG Oxyhemoglobin ABG Sodium ABG Potassium ABG Chloride ABG Glucose Glucose 113 H Lactic Acid 2.60 H* Calcium Phosphorus AST 162 H ALT 131 H Troponin T 0.096 H C-Reactive Protein Albumin HDL Cholesterol Arterial Blood Glucose Arterial Blood Ionized Calcium Urine WBC (Auto) 09/25/20 09/25/20 09/26/20 23:13 23:13 03:15 WBC Hgb Hct MCV MCH RDW Lymph % (Auto) Lymph # (Auto) [place] # (Auto) Seg Neutrophils % Seg Neutrophils # APTT Heparin Anti-Xa Level ABG pH 7.451 H POC ABG pCO2 27.1 L POC ABG pO2 ABG Hemoglobin 10.4 L ABG Oxyhemoglobin ABG Sodium 135.2 L ABG Potassium ABG Chloride 108.0 H ABG Glucose 137 H Glucose Lactic Acid 2.90 H* Calcium Phosphorus AST ALT Troponin T 0.170 H* D C-Reactive Protein Albumin HDL Cholesterol 60 H Arterial Blood Glucose 137 H Arterial Blood Ionized Calcium 4.2 L Urine WBC (Auto) 09/26/20 09/26/20 09/26/20 05:09 05:09 05:09 WBC 15.8 H Hgb 10.0 L Hct MCV 77 L MCH 24 L RDW 17.8 H Lymph % (Auto) 7.2 L Lymph # (Auto) 1.1 L [place] # (Auto) 1.0 H Seg Neutrophils % 86.1 H Seg Neutrophils # 13.6 H APTT Heparin Anti-Xa Level ABG pH POC ABG pCO2 POC ABG pO2 ABG Hemoglobin ABG Oxyhemoglobin ABG Sodium ABG Potassium ABG Chloride ABG Glucose Glucose 114 H Lactic Acid 2.40 H* Calcium 8.1 L Phosphorus AST 112 H ALT 103 H Troponin T C-Reactive Protein Albumin 3.8 L HDL Cholesterol Arterial Blood Glucose Arterial Blood Ionized Calcium Urine WBC (Auto) 09/26/20 09/27/20 09/27/20 15:45 03:33 04:41 WBC Hgb 9.0 L Hct 28.6 L MCV MCH RDW Lymph % (Auto) Lymph # (Auto) [place] # (Auto) Seg Neutrophils % Seg Neutrophils # APTT Heparin Anti-Xa Level ABG pH POC ABG pCO2 POC ABG pO2 141.6 H ABG Hemoglobin 9.3 L ABG Oxyhemoglobin ABG Sodium ABG Potassium 3.2 L ABG Chloride 108.0 H ABG Glucose 118 H Glucose Lactic Acid Calcium Phosphorus 2.20 L AST ALT Troponin T C-Reactive Protein 4.30 H Albumin HDL Cholesterol Arterial Blood Glucose 118 H Arterial Blood Ionized Calcium 4.2 L Urine WBC (Auto) 09/27/20 04:41 WBC Hgb Hct MCV MCH RDW Lymph % (Auto) Lymph # (Auto) [place] # (Auto) Seg Neutrophils % Seg Neutrophils # APTT Heparin Anti-Xa Level 0.75 H ABG pH POC ABG pCO2 POC ABG pO2 ABG Hemoglobin ABG Oxyhemoglobin ABG Sodium ABG Potassium ABG Chloride ABG Glucose Glucose Lactic Acid Calcium Phosphorus AST ALT Troponin T C-Reactive Protein Albumin HDL Cholesterol Arterial Blood Glucose Arterial Blood Ionized Calcium Urine WBC (Auto) Assessment and Plan 1. Status Post Arrest no improvement clinically , The patient is unresponsive with current limited neurological examination the neurological status is guarded . 2. Once sedation is off another neurological if clinically indicated may better provide a better clinical assesment . 3. Overal Prognosis is Gaurded . 4. Strongly recommend EEG off sedations Dr. Verona JORDAN
--- NOTE | 2020-09-27 12:56 | Progress Note ---
Assessment and Plan Cardiac arrest with return of spontaneous circulation. Acute respiratory failure, on mechanical ventilatory support. Acute toxic metabolic encephalopathy. Possible anoxic encephalopathy. Obesity. History of obesity hypoventilation syndrome. Leukocytosis. Likely aspiration pneumonia, bilateral. Anemia that is microcytic. Lactic acidosis. Elevated serum transaminases. Non-ST elevation myocardial infarction - prn hydrallazine - 30 mmol NsPhos & 2 gms MgSO4 ordered - repeat CBC in am - neurology evaluation ongoing - continue to wean supplemental oxygen for target O2 sat's > 90% acutely - VAP bundle addressed - continue lung protective strategies - continue bronchodilators with pulmonary hygiene per RT - wean per pulmonary driven protocols otherwise - continue Daily SAT and SBT assessment as tolerated - continue accuchecks with glycemic control per SSI (While critically ill target blood glucose of 140-180 mg/dL; avoid hypoglycemia) - sedation prn for target RASS 0 to -1 - avoid nephrotoxins, renally dose all medications - continue to avoid benzodiazepine's, reduce the possibility of delirium - completed AB's per ID rec's - prn analgesia per CPOT score - Maintenance of sleep-wake cycle, avoid delirium - continue enteral nutritional support at goal rate as tolerated - G.I. & VTE prophylaxis - PT/OT/ROM exercises - continue mobility protocols for pressure ulcer prophylaxis - Monitor hemodynamics closely - continue other care per attending / other consultants - discharge planning ongoing concurrently COVID SPECIFIC INTERVENTIONS - COVID tests result was negative .... Re-evaluate in am & prn CONDITION: CRITICAL PROGNOSIS: GUARDED CODE STATUS: FULL CODE The high probability of a clinically significant, sudden or life-threatening deterioration of the [respiratory, cardiovascular & neurologic] system(s) required my full and direct attention, intervention and personal management. The aggregate critical care time was [35] minutes without overlap. Time includes spent on; [x] Data Review and interpretation [x] Patient assessment and monitoring of vital signs [x] Documentation [x] Medication orders and management Subjective Date of service: 09/27/20 Principal diagnosis: Cardiac arrest; Ac. respiratory failure; Anoxic encephalopathy; PNA; NSTEMI Interval history: Patient is seen today for: Cardiac arrest with ROSC; Acute respiratory failure; Anoxic encephalopathy; Obesity; OHS; Aspiration pneumonia; NSTEMI Seen and examined at bedside; 24hour events reviewed; nursing and respiratory care staff consulted; no adverse overnight events reported to me; resting in bed; BP's running high; also with electrolyte derangements re: PO4 & Mg; remains on MVS; AMS is persistent; no grandmal seizures Objective Vital Signs - 12hr 09/27/20 09/27/20 09/27/20 00:56 01:00 02:00 Temperature Pulse Rate 115 H 112 H 114 H Pulse Rate [ From Monitor] Respiratory 15 13 Rate Blood Pressure 148/77 148/76 146/78 O2 Sat by Pulse 99 99 100 Oximetry 09/27/20 09/27/20 09/27/20 03:00 04:00 04:30 Temperature 99.6 F Pulse Rate 115 H 115 H 117 H Pulse Rate [ 108 H From Monitor] Respiratory 15 14 14 Rate Blood Pressure 153/77 146/75 146/75 O2 Sat by Pulse 98 99 99 Oximetry 09/27/20 09/27/20 09/27/20 04:36 05:00 06:00 Temperature Pulse Rate 115 H 118 H 117 H Pulse Rate [ From Monitor] Respiratory 13 15 Rate Blood Pressure 146/75 150/80 142/76 O2 Sat by Pulse 100 97 97 Oximetry 09/27/20 09/27/20 09/27/20 06:30 07:00 07:30 Temperature 100.4 F H Pulse Rate 120 H 114 H 113 H Pulse Rate [ From Monitor] Respiratory 15 12 13 Rate Blood Pressure 142/76 158/85 158/85 O2 Sat by Pulse 96 97 97 Oximetry 09/27/20 09/27/20 09/27/20 07:46 08:00 08:16 Temperature Pulse Rate 115 H 115 H 114 H Pulse Rate [ 114 H From Monitor] Respiratory 16 15 13 Rate Blood Pressure 158/85 152/86 152/86 O2 Sat by Pulse 96 97 97 Oximetry 09/27/20 09/27/20 09/27/20 08:17 08:30 09:00 Temperature Pulse Rate 116 H 114 H 113 H Pulse Rate [ From Monitor] Respiratory 14 15 Rate Blood Pressure 152/86 152/86 162/85 O2 Sat by Pulse 96 97 97 Oximetry 09/27/20 09/27/20 09/27/20 09:30 10:00 10:30 Temperature Pulse Rate 114 H 115 H 120 H Pulse Rate [ From Monitor] Respiratory 12 16 17 Rate Blood Pressure 162/85 158/83 162/84 O2 Sat by Pulse 96 97 97 Oximetry 09/27/20 09/27/20 09/27/20 11:00 11:17 11:30 Temperature Pulse Rate 120 H 121 H 118 H Pulse Rate [ From Monitor] Respiratory 13 13 Rate Blood Pressure 154/86 156/85 158/86 O2 Sat by Pulse 98 98 98 Oximetry 09/27/20 09/27/20 12:00 12:06 Temperature 100.2 F H Pulse Rate 117 H Pulse Rate [ 114 H From Monitor] Respiratory 16 Rate Blood Pressure 167/90 O2 Sat by Pulse 97 Oximetry Constitutional: no acute distress, other (middle aged obese female with mildly increased respiratory effort at rest on MVS) Eyes: non-icteric ENT: oropharynx moist, other (ETT 24 cm JAH) Neck: supple, no lymphadenopathy, no JVD Effort: mildly labored Ascultation: Bilateral: rhonchi Percussion: Bilateral: not dull Cardiovascular: regular rate and rhythm Gastrointestinal: normoactive bowel sounds, soft, non-tender, non-distended Integumentary: normal Extremities: no cyanosis, no edema, pulses normal, no ischemia or petechiae Neurologic: pupils equal and round, unable to assess Psychiatric: other (unable to assess re: AMS) CBC and BMP: 09/28/20 05:02 09/28/20 05:02 ABG, PT/INR, D-dimer: ABG ABG pH 7.445 (7.320-7.450) 09/27/20 03:33 POC ABG pCO2 36.8 mmHg (32.0-48.0) 09/27/20 03:33 POC ABG pO2 141.6 mmHg (83-108) H 09/27/20 03:33 POC ABG HCO3 24.7 09/27/20 03:33 ABG O2 Saturation 98.6 (0-100) 09/27/20 03:33 PT/INR, D-dimer PT 13.7 Sec. (12.2-14.9) 09/25/20 18:15 INR 1.00 (0.87-1.13) 09/25/20 18:15 Abnormal lab findings: Abnormal Labs 09/25/20 09/25/20 09/25/20 17:19 17:21 18:15 WBC 13.8 H Hgb 9.9 L Hct MCV 76 L MCH 23 L RDW 17.9 H Lymph % (Auto) Lymph # (Auto) [place] # (Auto) Seg Neutrophils % 78.6 H Seg Neutrophils # 10.8 H APTT Heparin Anti-Xa Level ABG pH POC ABG pCO2 26.2 L POC ABG pO2 554.5 H ABG Hemoglobin 9.0 L ABG Oxyhemoglobin 99.0 H ABG Sodium 134.5 L ABG Potassium ABG Chloride ABG Glucose 220 H Glucose Lactic Acid Calcium Phosphorus AST ALT Troponin T C-Reactive Protein Albumin HDL Cholesterol Arterial Blood Glucose 220 H Arterial Blood Ionized Calcium 4.2 L Urine WBC (Auto) 14.0 H 09/25/20 09/25/20 09/25/20 18:15 18:15 18:15 WBC Hgb Hct MCV MCH RDW Lymph % (Auto) Lymph # (Auto) [place] # (Auto) Seg Neutrophils % Seg Neutrophils # APTT 21.1 L Heparin Anti-Xa Level ABG pH POC ABG pCO2 POC ABG pO2 ABG Hemoglobin ABG Oxyhemoglobin ABG Sodium ABG Potassium ABG Chloride ABG Glucose Glucose 113 H Lactic Acid 2.60 H* Calcium Phosphorus AST 162 H ALT 131 H Troponin T 0.096 H C-Reactive Protein Albumin HDL Cholesterol Arterial Blood Glucose Arterial Blood Ionized Calcium Urine WBC (Auto) 09/25/20 09/25/20 09/26/20 23:13 23:13 03:15 WBC Hgb Hct MCV MCH RDW Lymph % (Auto) Lymph # (Auto) [place] # (Auto) Seg Neutrophils % Seg Neutrophils # APTT Heparin Anti-Xa Level ABG pH 7.451 H POC ABG pCO2 27.1 L POC ABG pO2 ABG Hemoglobin 10.4 L ABG Oxyhemoglobin ABG Sodium 135.2 L ABG Potassium ABG Chloride 108.0 H ABG Glucose 137 H Glucose Lactic Acid 2.90 H* Calcium Phosphorus AST ALT Troponin T 0.170 H* D C-Reactive Protein Albumin HDL Cholesterol 60 H Arterial Blood Glucose 137 H Arterial Blood Ionized Calcium 4.2 L Urine WBC (Auto) 09/26/20 09/26/20 09/26/20 05:09 05:09 05:09 WBC 15.8 H Hgb 10.0 L Hct MCV 77 L MCH 24 L RDW 17.8 H Lymph % (Auto) 7.2 L Lymph # (Auto) 1.1 L [place] # (Auto) 1.0 H Seg Neutrophils % 86.1 H Seg Neutrophils # 13.6 H APTT Heparin Anti-Xa Level ABG pH POC ABG pCO2 POC ABG pO2 ABG Hemoglobin ABG Oxyhemoglobin ABG Sodium ABG Potassium ABG Chloride ABG Glucose Glucose 114 H Lactic Acid 2.40 H* Calcium 8.1 L Phosphorus AST 112 H ALT 103 H Troponin T C-Reactive Protein Albumin 3.8 L HDL Cholesterol Arterial Blood Glucose Arterial Blood Ionized Calcium Urine WBC (Auto) 09/26/20 09/27/20 09/27/20 15:45 03:33 04:41 WBC Hgb 9.0 L Hct 28.6 L MCV MCH RDW Lymph % (Auto) Lymph # (Auto) [place] # (Auto) Seg Neutrophils % Seg Neutrophils # APTT Heparin Anti-Xa Level ABG pH POC ABG pCO2 POC ABG pO2 141.6 H ABG Hemoglobin 9.3 L ABG Oxyhemoglobin ABG Sodium ABG Potassium 3.2 L ABG Chloride 108.0 H ABG Glucose 118 H Glucose Lactic Acid Calcium Phosphorus 2.20 L AST ALT Troponin T C-Reactive Protein 4.30 H Albumin HDL Cholesterol Arterial Blood Glucose 118 H Arterial Blood Ionized Calcium 4.2 L Urine WBC (Auto) 09/27/20 04:41 WBC Hgb Hct MCV MCH RDW Lymph % (Auto) Lymph # (Auto) [place] # (Auto) Seg Neutrophils % Seg Neutrophils # APTT Heparin Anti-Xa Level 0.75 H ABG pH POC ABG pCO2 POC ABG pO2 ABG Hemoglobin ABG Oxyhemoglobin ABG Sodium ABG Potassium ABG Chloride ABG Glucose Glucose Lactic Acid Calcium Phosphorus AST ALT Troponin T C-Reactive Protein Albumin HDL Cholesterol Arterial Blood Glucose Arterial Blood Ionized Calcium Urine WBC (Auto) Chest x-ray: image reviewed (no acute process) Allied health notes reviewed: nursing
[2020-09-27] MEDS ORDERED: SODIUM BICARBONATE 325 MG TAB FEEDTUBE PRN (13:01)
[2020-09-27] MEDS ORDERED: SIMPLE SYRUP 15 ML FEEDTUBE PRN ×2 (13:01)
[2020-09-27] MEDS ORDERED: LIPASE 10,500/PROTEASE 25,000/AMYLASE 43,750 (UNITS) DR CAP FEEDTUBE PRN (13:01)
[2020-09-27] MEDS ORDERED: SODIUM PHOSPHATE 30 MMOL in SODIUM CHLORIDE 0.9% 500 ML 500 ML IV ONE (15:00)
[2020-09-27] MEDS ORDERED: MAGNESIUM SULFATE 2 GM/50 ML BAG IV ONE (15:00)
[2020-09-27] MEDS: carvediloL 6.25 MG TAB PO SCH ×2 (17:21→21:29)
[2020-09-27] MEDS: LISINOPRIL 5 MG TAB PO SCH (17:21)
--- NOTE | 2020-09-27 19:13 | Event Note ---
Date: 09/27/20 I called patient's aunt , STAN Minor today [09/27/2020 ]at [phone] and updated patient's condition, tests and reports, neurologist recommendations, poor prognosis, she inquired about patient's EEG, I explained to her the neurologist recommendations regarding EEG , but EEG should be done when patient is off any sedation or pain medications as per neurologist note . She verbalized understanding. I answered all her questions and encouraged her to call back if she has any new concerns. I reiterated that patient is critically ill with very poor prognosis due to her cardiac arrest and anoxic brain injury. Ms. Minor verbalized understanding and she was appreciative of my call. I informed patient's nurse about my above conversation.
[2020-09-27] MEDS: ACETAMINOPHEN 325 MG TAB PO PRN (19:53)
[2020-09-27] MEDS: HEPARIN/ 0.45% NACL DRIP 25,000 UNIT/500 ML BAG IV SCH (21:30)
[2020-09-28] MEDS: ACETAMINOPHEN 325 MG TAB PO PRN ×3 (02:58→21:40)
[2020-09-28 05:32] LABS: Basophils % (Auto) 0.3 % (0.0-1.8); Hematocrit 29.5 % (30.3-42.9); Hemoglobin 9.3 gm/dl (10.1-14.3); Lymphocytes # (Auto) 1.9 K/mm3 (1.2-5.4); Lymphocytes % (Auto) 16.1 % (13.4-35.0); Mean Corpuscular HGB Conc 32 % (30-34); Mean Corpuscular Volume 76 fl (79-97); Monocytes # (Auto) 1.3 K/mm3 (0.0-0.8); Monocytes % (Auto) 11.1 % (0.0-7.3); Platelet Count 285 K/mm3 (140-440); Red Blood Count 3.86 M/mm3 (3.65-5.03); Red Cell Distribution Width 19.4 % (13.2-15.2)
[2020-09-28] MEDS: MINERAL OIL/PETROLATUM, WHITE OPHTH OINT 3.5 GM OU PRN ×2 (05:36→22:02)
[2020-09-28 05:49] LABS: Alanine Aminotransferase 60 units/L (7-56); Albumin 3.7 g/dL (3.9-5); BUN/Creatinine Ratio 11; Blood Urea Nitrogen 11 mg/dL (7-17); Calcium 8.9 mg/dL (8.4-10.2); Hemolysis Index 5
--- NOTE | 2020-09-28 06:06 | XRay Report ---
CHEST 1 VIEW, 09/28/2020 4:33M CLINICAL INFORMATION/INDICATION: Respiratory failure COMPARISON: Chest radiograph, 09/27/2020 at 5:05 AM FINDINGS: SUPPORT DEVICES: Esophagogastric tube and endotracheal tube project in similar position. HEART: There is stable mild enlargement of the cardiac silhouette. LUNGS/PLEURA: No focal airspace consolidation or large pleural effusion is visualized. ADDITIONAL FINDINGS: No additional acute findings. IMPRESSION: 1. Stable appearance of the chest. Signer Name: Alice Suazo MD Signed: 09/28/2020 6:01 AM Workstation Name: [id number]
[2020-09-28] MEDS: LISINOPRIL 5 MG TAB PO SCH (09:06)
[2020-09-28] MEDS: carvediloL 6.25 MG TAB PO SCH ×2 (09:06→21:50)
[2020-09-28] MEDS: FAMOTIDINE 20 MG/2 ML INJ IV SCH ×2 (09:06→21:40)
[2020-09-28] MEDS: SENNOSIDES/DOCUSATE SODIUM 8.6/50 MG TAB FEEDTUBE SCH ×2 (09:06→21:40)
[2020-09-28] MEDS: levETIRAcetam 750 MG in DEXTROSE 5% IN WATER 100 ML IV SCH ×2 (09:09→21:41)
[2020-09-28] MEDS ORDERED: ASPIRIN 81 MG TAB CHEW PO SCH (10:00)
--- NOTE | 2020-09-28 13:52 | Progress Note ---
Assessment and Plan Cardiac arrest with return of spontaneous circulation. Acute respiratory failure, on mechanical ventilatory support. Acute toxic metabolic encephalopathy. Possible anoxic encephalopathy. Obesity. History of obesity hypoventilation syndrome. Leukocytosis. Likely aspiration pneumonia, bilateral. Anemia that is microcytic. Lactic acidosis. Elevated serum transaminases. Non-ST elevation myocardial infarction - neurology evaluation ongoing - follow EEG report - continue care as below otherwise; - continue to wean supplemental oxygen for target O2 sat's > 90% acutely - VAP bundle addressed - continue lung protective strategies - continue bronchodilators with pulmonary hygiene per RT - wean per pulmonary driven protocols otherwise - continue Daily SAT and SBT assessment as tolerated - continue accuchecks with glycemic control per SSI (While critically ill target blood glucose of 140-180 mg/dL; avoid hypoglycemia) - sedation prn for target RASS 0 to -1 - avoid nephrotoxins, renally dose all medications - continue to avoid benzodiazepine's, reduce the possibility of delirium - completed AB's per ID rec's - prn analgesia per CPOT score - Maintenance of sleep-wake cycle, avoid delirium - continue enteral nutritional support at goal rate as tolerated - G.I. & VTE prophylaxis - PT/OT/ROM exercises - continue mobility protocols for pressure ulcer prophylaxis - Monitor hemodynamics closely - continue other care per attending / other consultants - discharge planning ongoing concurrently COVID SPECIFIC INTERVENTIONS - COVID tests result was negative .... Re-evaluate in am & prn CONDITION: CRITICAL PROGNOSIS: GUARDED CODE STATUS: FULL CODE The high probability of a clinically significant, sudden or life-threatening deterioration of the [respiratory, cardiovascular & neurologic] system(s) required my full and direct attention, intervention and personal management. The aggregate critical care time was [33] minutes without overlap. Time includes spent on; [x] Data Review and interpretation [x] Patient assessment and monitoring of vital signs [x] Documentation [x] Medication orders and management Subjective Date of service: 09/28/20 Principal diagnosis: Cardiac arrest; Ac. respiratory failure; Anoxic encephalopathy; PNA; NSTEMI Interval history: Patient is seen today for: Cardiac arrest with ROSC; Acute respiratory failure; Anoxic encephalopathy; Obesity; OHS; Aspiration pneumonia; NSTEMI Seen and examined at bedside; 24hour events reviewed; nursing and respiratory care staff consulted; no adverse overnight events reported to me; resting in bed; remains on MVS; AMS is persistent; no grandmal seizures; no emesis or overt aspiration Objective Vital Signs - 12hr 09/28/20 09/28/20 09/28/20 02:00 03:00 03:24 Temperature 103.1 F H Pulse Rate 109 H 111 H Pulse Rate [ From Monitor] Respiratory 18 20 Rate Blood Pressure 148/68 145/65 O2 Sat by Pulse 98 99 Oximetry 09/28/20 09/28/20 09/28/20 03:41 04:00 05:00 Temperature Pulse Rate 94 H 103 H 106 H Pulse Rate [ 115 H From Monitor] Respiratory 15 15 Rate Blood Pressure 150/64 145/65 147/62 O2 Sat by Pulse 98 97 98 Oximetry 09/28/20 09/28/20 09/28/20 05:37 06:00 07:00 Temperature 100.8 F H Pulse Rate 103 H 100 H Pulse Rate [ From Monitor] Respiratory 14 15 Rate Blood Pressure 133/72 140/63 O2 Sat by Pulse 98 96 Oximetry 09/28/20 09/28/20 09/28/20 08:00 08:01 09:00 Temperature 98.1 F Pulse Rate 120 H 101 H 92 H Pulse Rate [ 115 H From Monitor] Respiratory 17 17 Rate Blood Pressure 151/46 151/46 177/68 O2 Sat by Pulse 98 98 97 Oximetry 09/28/20 09/28/20 09/28/20 10:00 11:00 12:00 Temperature 102.9 F H Pulse Rate 119 H 129 H 123 H Pulse Rate [ 115 H From Monitor] Respiratory 20 23 15 Rate Blood Pressure 146/57 128/54 145/59 O2 Sat by Pulse 97 96 98 Oximetry 09/28/20 09/28/20 12:02 13:00 Temperature Pulse Rate 123 H 113 H Pulse Rate [ From Monitor] Respiratory 15 Rate Blood Pressure 145/59 117/55 O2 Sat by Pulse 97 97 Oximetry Constitutional: no acute distress, other (middle aged obese female with mildly increased respiratory effort at rest on MVS) Eyes: non-icteric ENT: oropharynx moist, other (ETT 23 cm JAH) Neck: supple, no lymphadenopathy, no JVD Effort: mildly labored Ascultation: Bilateral: rhonchi Percussion: Bilateral: not dull Cardiovascular: regular rate and rhythm Gastrointestinal: normoactive bowel sounds, soft, non-tender, non-distended Integumentary: normal Extremities: no cyanosis, no edema, pulses normal, no ischemia or petechiae Neurologic: pupils equal and round, unable to assess Psychiatric: other (unable to assess re: AMS) CBC and BMP: 09/29/20 08:39 09/28/20 05:02 ABG, PT/INR, D-dimer: ABG ABG pH 7.467 (7.320-7.450) H 09/28/20 04:00 POC ABG pCO2 40.3 mmHg (32.0-48.0) 09/28/20 04:00 POC ABG pO2 78.9 mmHg (83-108) L 09/28/20 04:00 POC ABG HCO3 28.5 09/28/20 04:00 ABG O2 Saturation 96.5 (0-100) 09/28/20 04:00 PT/INR, D-dimer PT 13.7 Sec. (12.2-14.9) 09/25/20 18:15 INR 1.00 (0.87-1.13) 09/25/20 18:15 Abnormal lab findings: Abnormal Labs 09/25/20 09/25/20 09/25/20 17:19 17:21 18:15 WBC 13.8 H Hgb 9.9 L Hct MCV 76 L MCH 23 L RDW 17.9 H Lymph % (Auto) [place] % (Auto) Lymph # (Auto) [place] # (Auto) Seg Neutrophils % 78.6 H Seg Neutrophils # 10.8 H APTT Heparin Anti-Xa Level ABG pH POC ABG pCO2 26.2 L POC ABG pO2 554.5 H ABG Hemoglobin 9.0 L ABG Oxyhemoglobin 99.0 H ABG Sodium 134.5 L ABG Potassium ABG Chloride ABG Glucose 220 H Potassium Glucose POC Glucose Lactic Acid Calcium Phosphorus AST ALT Troponin T C-Reactive Protein Albumin HDL Cholesterol Arterial Blood Glucose 220 H Arterial Blood Ionized Calcium 4.2 L Urine WBC (Auto) 14.0 H 09/25/20 09/25/20 09/25/20 18:15 18:15 18:15 WBC Hgb Hct MCV MCH RDW Lymph % (Auto) [place] % (Auto) Lymph # (Auto) [place] # (Auto) Seg Neutrophils % Seg Neutrophils # APTT 21.1 L Heparin Anti-Xa Level ABG pH POC ABG pCO2 POC ABG pO2 ABG Hemoglobin ABG Oxyhemoglobin ABG Sodium ABG Potassium ABG Chloride ABG Glucose Potassium Glucose 113 H POC Glucose Lactic Acid 2.60 H* Calcium Phosphorus AST 162 H ALT 131 H Troponin T 0.096 H C-Reactive Protein Albumin HDL Cholesterol Arterial Blood Glucose Arterial Blood Ionized Calcium Urine WBC (Auto) 09/25/20 09/25/20 09/26/20 23:13 23:13 03:15 WBC Hgb Hct MCV MCH RDW Lymph % (Auto) [place] % (Auto) Lymph # (Auto) [place] # (Auto) Seg Neutrophils % Seg Neutrophils # APTT Heparin Anti-Xa Level ABG pH 7.451 H POC ABG pCO2 27.1 L POC ABG pO2 ABG Hemoglobin 10.4 L ABG Oxyhemoglobin ABG Sodium 135.2 L ABG Potassium ABG Chloride 108.0 H ABG Glucose 137 H Potassium Glucose POC Glucose Lactic Acid 2.90 H* Calcium Phosphorus AST ALT Troponin T 0.170 H* D C-Reactive Protein Albumin HDL Cholesterol 60 H Arterial Blood Glucose 137 H Arterial Blood Ionized Calcium 4.2 L Urine WBC (Auto) 09/26/20 09/26/20 09/26/20 05:09 05:09 05:09 WBC 15.8 H Hgb 10.0 L Hct MCV 77 L MCH 24 L RDW 17.8 H Lymph % (Auto) 7.2 L [place] % (Auto) Lymph # (Auto) 1.1 L [place] # (Auto) 1.0 H Seg Neutrophils % 86.1 H Seg Neutrophils # 13.6 H APTT Heparin Anti-Xa Level ABG pH POC ABG pCO2 POC ABG pO2 ABG Hemoglobin ABG Oxyhemoglobin ABG Sodium ABG Potassium ABG Chloride ABG Glucose Potassium Glucose 114 H POC Glucose Lactic Acid 2.40 H* Calcium 8.1 L Phosphorus AST 112 H ALT 103 H Troponin T C-Reactive Protein Albumin 3.8 L HDL Cholesterol Arterial Blood Glucose Arterial Blood Ionized Calcium Urine WBC (Auto) 09/26/20 09/27/20 09/27/20 15:45 03:33 04:41 WBC Hgb 9.0 L Hct 28.6 L MCV MCH RDW Lymph % (Auto) [place] % (Auto) Lymph # (Auto) [place] # (Auto) Seg Neutrophils % Seg Neutrophils # APTT Heparin Anti-Xa Level ABG pH POC ABG pCO2 POC ABG pO2 141.6 H ABG Hemoglobin 9.3 L ABG Oxyhemoglobin ABG Sodium ABG Potassium 3.2 L ABG Chloride 108.0 H ABG Glucose 118 H Potassium Glucose POC Glucose Lactic Acid Calcium Phosphorus 2.20 L AST ALT Troponin T C-Reactive Protein 4.30 H Albumin HDL Cholesterol Arterial Blood Glucose 118 H Arterial Blood Ionized Calcium 4.2 L Urine WBC (Auto) 09/27/20 09/27/20 09/28/20 04:41 22:53 04:00 WBC Hgb Hct MCV MCH RDW Lymph % (Auto) [place] % (Auto) Lymph # (Auto) [place] # (Auto) Seg Neutrophils % Seg Neutrophils # APTT Heparin Anti-Xa Level 0.75 H ABG pH 7.467 H POC ABG pCO2 POC ABG pO2 78.9 L ABG Hemoglobin 9.8 L ABG Oxyhemoglobin ABG Sodium ABG Potassium ABG Chloride ABG Glucose 141 H Potassium Glucose POC Glucose 109 H Lactic Acid Calcium Phosphorus AST ALT Troponin T C-Reactive Protein Albumin HDL Cholesterol Arterial Blood Glucose 141 H Arterial Blood Ionized Calcium Urine WBC (Auto) 09/28/20 09/28/20 05:02 05:02 WBC 11.9 H Hgb 9.3 L Hct 29.5 L MCV 76 L MCH 24 L RDW 19.4 H Lymph % (Auto) [place] % (Auto) 11.1 H Lymph # (Auto) [place] # (Auto) 1.3 H Seg Neutrophils % 72.5 H Seg Neutrophils # 8.6 H APTT Heparin Anti-Xa Level ABG pH POC ABG pCO2 POC ABG pO2 ABG Hemoglobin ABG Oxyhemoglobin ABG Sodium ABG Potassium ABG Chloride ABG Glucose Potassium 3.4 L Glucose 126 H POC Glucose Lactic Acid Calcium Phosphorus AST 129 H ALT 60 H Troponin T C-Reactive Protein Albumin 3.7 L HDL Cholesterol Arterial Blood Glucose Arterial Blood Ionized Calcium Urine WBC (Auto) Chest x-ray: image reviewed Allied health notes reviewed: nursing
--- NOTE | 2020-09-28 17:00 | Progress Note ---
Assessment and Plan Assessment and Plan --Out of the hospital cardiac arrest; Current Visit: Yes Status: Acute Patient treated" with ACLS protocol with return of perfusing cardiac rhythm, cardiology evaluation noted and appreciated, Follow echocardiogram LV function ejection fraction --Anoxic brain injury; Current Visit: Yes Status: Acute CT head no acute abnormality noted Neurochecks, supportive care Neurology consult requested, follow evaluation and recommendations neuro work-up per neurology, EEG when patient is off sedation -- Acute hypoxemic respiratory failure Current Visit: Yes Status: Acute Patient intubated and on ventilatory support: Critical care team following, wean vent as tolerated, Continue supportive care --NSTEMI (non-ST elevated myocardial infarction) Current Visit: Yes Status: Acute Due to cardiac arrest Follow cardiology recommendations -- Sepsis Current Visit: Yes Status: Acute Sepsis protocol: Chest x-ray, CBC, BMP, urinalysis, Continue empiric IV antibiotic therapy, IV fluid resuscitation therapy, Follow cultures --Leukocytosis; due to sepsis treat the underlying cause Follow cultures -- lactic acidosis Current Visit: Yes Status: Acute Plan to address problem: Treat sepsis, IV fluid resuscitation therapy, BMP, repeat BMP in a.m. Serial lactic acid level. -- Pneumonia Current Visit: Yes Status: Acute Plan to address problem: Pneumonia protocol: IV antibiotic therapy, chest x-ray, CBC, CMP, blood culture, -- Seizure disorder Current Visit: Yes Status: Acute Plan to address problem: Antiepilepsy therapy with Keppra, seizure precautions. --Obesity; BMI 39.1 --DVT prophylaxis Current Visit: Yes Status: Acute Plan to address problem: SCD to bilateral lower extremities while in bed, therapeutic anticoagulation --full CODE STATUS Poor prognosis I discussed with [facility] patient's aunt Ms. Debora Minor and update patient's critical condition, poor prognosis , treatment plan and CODE STATUS. Full code The high probability of a clinically significant, sudden or life threatening deterioration of the [cardiac, pulmonary, renal, neuro] system(s) required my full and direct attention, intervention and personal management. The aggregate critical care time was [35] minutes. This time is in addition to time spent performing reported procedures but includes the following: [x] Data Review and interpretation [x] Patient assessment and monitoring of vital signs [x] Documentation [x] Medication orders and management Subjective Date of service: 09/28/20 Principal diagnosis: Cardiac arrest; Ac. respiratory failure; Anoxic encephalopathy; PNA; NSTEMI Interval history: 45 YO Female with Obesity Hypoventilation Syndrome, GERD presents to ED for evaluation. Patient is intubated and on ventilatory support at the time my evaluation is unable to provide history. Patient history taken from EMS staff, ED staff. As per staff EMS was notified for shortness of breath. Upon arrival the patient was found to be in distress and subsequently developed cardiac arrest. Patient was treated in accordance with ACLS protocol, as well as intubated in the field and subsequently transported to [facility] for further care and evaluation of the aforementioned symptoms. The patient was seen and evaluated in the emergency department. All lab and imaging studies reviewed. Patient was found to have persistent respiratory failure and was maintained on ventilatory s upport. Patient found to have sepsis, pneumonia, seizure disorder, metabolic acidosis, as well as NSTEMI.. Cardiology team consulted. Patient initiated on therapeutic anticoagulation as well as sepsis protocol and admitted to ICU. No further history is obtainable. No prior admission for review. All medication listed at time of admission has been reconciled. 09/26/2020 Patient remains unresponsive, intubated on ventilatory support. 09/27/2020; patient remains unresponsive, intubated on ventilatory support Follow neurology evaluation and recommendations Very poor prognosis, I spoke with patient's aunt Ms. Debora Minor 09/26/2020 About patient's condition , tests and reports and very poor prognosis. She verbalized understanding. I discussed the CODE STATUS Full code at this point 09/28/2020 S/p cardiac arrest outside the facility Intubated and unresponsive We will discuss CODE STATUS again Interval history: I have seen and examined the patient at the bedside this morning in ICU Patient's chart medications reviewed No new overnight events reported by the nursing Patient remains intubated on ventilatory support Unresponsive Vital signs noted Objective - Constitutional Vitals: Vital Signs - 12hr 09/28/20 09/28/20 09/28/20 05:00 05:37 06:00 Temperature 100.8 F H Pulse Rate 106 H 103 H Pulse Rate [ From Monitor] Respiratory 15 14 Rate Blood Pressure 147/62 133/72 O2 Sat by Pulse 98 98 Oximetry 09/28/20 09/28/20 09/28/20 07:00 08:00 08:01 Temperature 98.1 F Pulse Rate 100 H 120 H 101 H Pulse Rate [ 115 H From Monitor] Respiratory 15 17 Rate Blood Pressure 140/63 151/46 151/46 O2 Sat by Pulse 96 98 98 Oximetry 09/28/20 09/28/20 09/28/20 09:00 10:00 11:00 Temperature Pulse Rate 92 H 119 H 129 H Pulse Rate [ From Monitor] Respiratory 17 20 23 Rate Blood Pressure 177/68 146/57 128/54 O2 Sat by Pulse 97 97 96 Oximetry 09/28/20 09/28/20 09/28/20 12:00 12:02 13:00 Temperature 102.9 F H Pulse Rate 123 H 123 H 113 H Pulse Rate [ 115 H From Monitor] Respiratory 15 15 Rate Blood Pressure 145/59 145/59 117/55 O2 Sat by Pulse 98 97 97 Oximetry 09/28/20 09/28/20 09/28/20 14:00 15:00 15:36 Temperature Pulse Rate 96 H 95 H 101 H Pulse Rate [ From Monitor] Respiratory 13 16 Rate Blood Pressure 121/62 122/62 141/58 O2 Sat by Pulse 98 95 99 Oximetry 09/28/20 16:00 Temperature 98.5 F Pulse Rate 102 H Pulse Rate [ 115 H From Monitor] Respiratory 16 Rate Blood Pressure 146/66 O2 Sat by Pulse 98 Oximetry General appearance: Present: no acute distress, well-nourished - EENT Eyes: PERRL, EOM intact ENT: hearing intact, clear oral mucosa Ears: bilateral: normal - Neck Neck: supple, normal ROM - Respiratory Respiratory effort: normal Respiratory: bilateral: CTA - Breasts Breasts: normal - Cardiovascular Heart rate: 78 Rhythm: regular Heart Sounds: Present: S1 & S2. Absent: gallop, rub Extremities: pulses intact, No edema, normal color, Full ROM - Gastrointestinal General gastrointestinal: Present: soft, non-tender, non-distended, normal bowel sounds - Genitourinary Female genitourinary: normal - Integumentary Integumentary: clear, warm, dry - Musculoskeletal Musculoskeletal: generalized weakness - Neurologic Neurologic: other (Unresponsive) - Psychiatric Psychiatric: other (Unresponsive) - Labs CBC & Chem 7: 09/28/20 05:02 09/28/20 05:02 Labs: Abnormal lab results 09/27/20 09/28/20 09/28/20 Range/Units 22:53 04:00 05:02 WBC 11.9 H (4.5-11.0) K/mm3 Hgb 9.3 L (10.1-14.3) gm/dl Hct 29.5 L (30.3-42.9) % MCV 76 L (79-97) fl MCH 24 L (28-32) pg RDW 19.4 H (13.2-15.2) % [place] % (Auto) 11.1 H (0.0-7.3) % [place] # (Auto) 1.3 H (0.0-0.8) K/mm3 Seg Neutrophils % 72.5 H (40.0-70.0) % Seg Neutrophils # 8.6 H (1.8-7.7) K/mm3 ABG pH 7.467 H (7.320-7.450) POC ABG pO2 78.9 L (83-108) mmHg ABG Hemoglobin 9.8 L (12.0-17.5) ABG Glucose 141 H (65-95) mg/dL Potassium (3.6-5.0) mmol/L Glucose (65-100) mg/dL POC Glucose 109 H (70-105) mg/dL AST (5-40) units/L ALT (7-56) units/L Albumin (3.9-5) g/dL Arterial Blood Glucose 141 H (65-95) mg/dL 09/28/20 Range/Units 05:02 WBC (4.5-11.0) K/mm3 Hgb (10.1-14.3) gm/dl Hct (30.3-42.9) % MCV (79-97) fl MCH (28-32) pg RDW (13.2-15.2) % [place] % (Auto) (0.0-7.3) % [place] # (Auto) (0.0-0.8) K/mm3 Seg Neutrophils % (40.0-70.0) % Seg Neutrophils # (1.8-7.7) K/mm3 ABG pH (7.320-7.450) POC ABG pO2 (83-108) mmHg ABG Hemoglobin (12.0-17.5) ABG Glucose (65-95) mg/dL Potassium 3.4 L (3.6-5.0) mmol/L Glucose 126 H (65-100) mg/dL POC Glucose (70-105) mg/dL AST 129 H (5-40) units/L ALT 60 H (7-56) units/L Albumin 3.7 L (3.9-5) g/dL Arterial Blood Glucose (65-95) mg/dL HEART Score - HEART Score Troponin: Troponin T 0.170 ng/mL (0.00-0.029) H* D 09/25/20 23:13
[2020-09-29] MEDS: HEPARIN/ 0.45% NACL DRIP 25,000 UNIT/500 ML BAG IV SCH (06:14)
--- NOTE | 2020-09-29 06:37 | XRay Report ---
CHEST 1 VIEW, 09/29/2020 516 AM CLINICAL INFORMATION/INDICATION: Respiratory failure COMPARISON: Chest radiograph, 09/28/2020 at 4:33 AM FINDINGS: SUPPORT DEVICES: Support tubes and lines remain in stable position. HEART: There is stable mild enlargement of the cardiac silhouette. LUNGS/PLEURA: No focal airspace consolidation or large pleural effusion is visualized. There is no ev idence of pneumothorax. ADDITIONAL FINDINGS: No additional acute findings. IMPRESSION: 1. Stable appearance of the chest. Signer Name: Alice Suazo MD Signed: 09/29/2020 6:33 AM Workstation Name: [id number]
[2020-09-29 09:01] LABS: Hematocrit 32.2 % (30.3-42.9)
[2020-09-29] MEDS: levETIRAcetam 750 MG in DEXTROSE 5% IN WATER 100 ML IV SCH ×2 (12:19→22:01)
[2020-09-29] MEDS: carvediloL 6.25 MG TAB PO SCH ×2 (12:19→21:47)
[2020-09-29] MEDS: LISINOPRIL 5 MG TAB PO SCH (12:20)
[2020-09-29] MEDS: FAMOTIDINE 20 MG/2 ML INJ IV SCH (12:21)
[2020-09-29] MEDS: ACETAMINOPHEN 325 MG TAB PO PRN ×2 (12:24→21:53)
--- NOTE | 2020-09-29 12:39 | Progress Note ---
Assessment and Plan Dilated Cardiomyopathy, uncertain duration an echo revealed a severely decrease LV systolic function, EF 20-25%. Witnessed OOH cardiac arrest ECG - No ischemic findings CT brain - NAP CT chest - no PE, consolidative changes at bases bilaterally suggesting aspiration Acute respiratory failure Non-specific troponin Recommendations: Guideline directed medical therapy for dilated cardiomyopathy as tolerated. Further cardiac work-up will depend on clinical course. Subjective Date of service: 09/29/20 Principal diagnosis: Cardiac arrest; Ac. respiratory failure; Anoxic encephalopathy; PNA; NSTEMI Interval history: General condition the same Objective Vital Signs Temp Pulse Pulse Resp BP Pulse Ox 09/29/20 12:20 159/67 09/29/20 12:19 105 H 159/67 09/29/20 11:30 98 H 145/56 94 09/29/20 07:52 113 H 144/73 98 09/29/20 07:00 101.8 F H 09/29/20 06:00 107 H 17 139/76 95 09/29/20 05:00 106 H 21 134/55 09/29/20 04:00 98.9 F 92 H 99 H 18 136/57 97 09/29/20 03:52 93 H 134/55 97 09/29/20 03:00 88 19 128/56 98 09/29/20 02:00 87 12 123/56 98 09/29/20 01:00 89 15 119/56 96 09/29/20 00:00 99 H 99 H 17 124/54 96 09/28/20 23:42 99 H 15 131/66 96 09/28/20 23:37 99 H 127/59 97 09/28/20 23:00 87 16 130/61 97 09/28/20 22:00 99 H 20 156/64 97 09/28/20 21:50 90 156/64 09/28/20 21:00 110 H 15 155/59 95 09/28/20 20:33 98 H 151/66 96 09/28/20 20:00 102.9 F H 107 H 99 H 17 152/69 96 09/28/20 19:00 110 H 18 145/60 95 09/28/20 18:00 105 H 20 142/79 95 09/28/20 17:00 100 H 18 132/70 97 09/28/20 16:00 98.5 F 102 H 115 H 16 146/66 98 09/28/20 15:36 101 H 141/58 99 09/28/20 15:00 95 H 16 122/62 95 09/28/20 14:00 96 H 13 121/62 98 09/28/20 13:00 113 H 15 117/55 97 - Physical Examination General: Other (intubated) Neck: Positive: neck supple, trachea midline Cardiac: Positive: Reg Rate and Rhythm Lungs: Positive: clear to auscultation Neuro: Positive: Other (Patient intubated and sedated) Abdomen: Positive: Soft Extremities: Present: normal - Labs and Meds CBC 09/29/20 Range/Units 08:39 Hgb 10.0 L (10.1-14.3) gm/dl Hct 32.2 (30.3-42.9) % Plt Count 323 (140-440) K/mm3 - Allied health notes Allied health notes reviewed: nursing
[2020-09-29] MEDS: SENNOSIDES/DOCUSATE SODIUM 8.6/50 MG TAB FEEDTUBE SCH (13:49)
--- NOTE | 2020-09-29 16:40 | Progress Note ---
Assessment and Plan Cardiac arrest with return of spontaneous circulation. Acute respiratory failure, on mechanical ventilatory support. Acute toxic metabolic encephalopathy. Possible anoxic encephalopathy. Obesity. History of obesity hypoventilation syndrome. Leukocytosis. Likely aspiration pneumonia, bilateral. Anemia that is microcytic. Lactic acidosis. Elevated serum transaminases. Non-ST elevation myocardial infarction (Seems STAN is interested in a trach & PEG but awaits neurological evaluation report) - neurology evaluation ongoing - tentatively begin SBT's in am (tolerated bedside SBT well) - follow EEG report - continue care as below otherwise; - continue to wean supplemental oxygen for target O2 sat's > 90% acutely - VAP bundle addressed - continue lung protective strategies - continue bronchodilators with pulmonary hygiene per RT - wean per pulmonary driven protocols otherwise - continue Daily SAT and SBT assessment as tolerated - continue accuchecks with glycemic control per SSI (While critically ill target blood glucose of 140-180 mg/dL; avoid hypoglycemia) - sedation prn for target RASS 0 to -1 - avoid nephrotoxins, renally dose all medications - continue to avoid benzodiazepine's, reduce the possibility of delirium - completed AB's per ID rec's - prn analgesia per CPOT score - Maintenance of sleep-wake cycle, avoid delirium - continue enteral nutritional support at goal rate as tolerated - G.I. & VTE prophylaxis - PT/OT/ROM exercises - continue mobility protocols for pressure ulcer prophylaxis - Monitor hemodynamics closely - continue other care per attending / other consultants - discharge planning ongoing concurrently COVID SPECIFIC INTERVENTIONS - COVID tests result was negative .... Re-evaluate in am & prn CONDITION: CRITICAL PROGNOSIS: GUARDED CODE STATUS: FULL CODE The high probability of a clinically significant, sudden or life-threatening deterioration of the [respiratory, cardiovascular & neurologic] system(s) required my full and direct attention, intervention and personal management. The aggregate critical care time was [32] minutes without overlap. Time includes spent on; [x] Data Review and interpretation [x] Patient assessment and monitoring of vital signs [x] Documentation [x] Medication orders and management Subjective Date of service: 09/29/20 Principal diagnosis: Cardiac arrest; Ac. respiratory failure; Anoxic encephalopathy; PNA; NSTEMI Interval history: Patient is seen today for: Cardiac arrest with ROSC; Acute respiratory failure; Anoxic encephalopathy; Obesity; OHS; Aspiration pneumonia; NSTEMI Seen and examined at bedside; 24hour events reviewed; nursing and respiratory care staff consulted; no adverse overnight events reported to me; resting in bed; remains on MVS; AMS is persistent; her Aunt (STAN) is visiting; ETT riding high on CXR; no emesis or overt aspiration Objective Vital Signs - 12hr 09/29/20 09/29/20 09/29/20 05:00 06:00 07:00 Temperature 101.8 F H Pulse Rate 106 H 107 H 120 H Respiratory 21 17 22 Rate Blood Pressure 134/55 139/76 141/71 O2 Sat by Pulse 95 97 Oximetry 09/29/20 09/29/20 09/29/20 07:52 08:00 09:00 Temperature Pulse Rate 113 H 112 H 81 Respiratory 18 15 Rate Blood Pressure 144/73 141/73 150/56 O2 Sat by Pulse 98 96 97 Oximetry 09/29/20 09/29/20 09/29/20 10:00 11:00 11:30 Temperature Pulse Rate 68 84 98 H Respiratory 15 16 Rate Blood Pressure 153/57 145/58 145/56 O2 Sat by Pulse 97 97 94 Oximetry 09/29/20 09/29/20 09/29/20 12:00 12:19 12:20 Temperature 103.1 F H Pulse Rate 101 H 105 H Respiratory 14 Rate Blood Pressure 135/70 159/67 159/67 O2 Sat by Pulse 95 Oximetry 09/29/20 09/29/20 09/29/20 13:00 14:00 15:00 Temperature Pulse Rate 110 H 90 91 H Respiratory 18 14 15 Rate Blood Pressure 138/56 105/49 110/54 O2 Sat by Pulse 98 99 98 Oximetry 09/29/20 09/29/20 15:43 16:00 Temperature Pulse Rate 91 H 86 Respiratory 14 Rate Blood Pressure 130/61 129/62 O2 Sat by Pulse 100 100 Oximetry Constitutional: no acute distress, other (middle aged obese female with mildly increased respiratory effort at rest on MVS) Eyes: non-icteric ENT: oropharynx moist, other (ETT 23 cm JAH) Neck: supple, no lymphadenopathy, no JVD Effort: mildly labored Ascultation: Bilateral: rhonchi Percussion: Bilateral: not dull Cardiovascular: regular rate and rhythm Gastrointestinal: normoactive bowel sounds, soft, non-tender, non-distended Integumentary: normal Extremities: no cyanosis, no edema, pulses normal, no ischemia or petechiae Neurologic: pupils equal and round, unable to assess Psychiatric: other (unable to assess re: AMS) CBC and BMP: 09/29/20 08:39 09/28/20 05:02 ABG, PT/INR, D-dimer: ABG ABG pH 7.447 (7.320-7.450) 09/29/20 04:00 POC ABG pCO2 36.3 mmHg (32.0-48.0) 09/29/20 04:00 POC ABG pO2 81.1 mmHg (83-108) L 09/29/20 04:00 POC ABG HCO3 24.5 09/29/20 04:00 ABG O2 Saturation 96.4 (0-100) 09/29/20 04:00 PT/INR, D-dimer PT 13.7 Sec. (12.2-14.9) 09/25/20 18:15 INR 1.00 (0.87-1.13) 09/25/20 18:15 Abnormal lab findings: Abnormal Labs 09/25/20 09/25/20 09/25/20 17:19 17:21 18:15 WBC 13.8 H Hgb 9.9 L Hct MCV 76 L MCH 23 L RDW 17.9 H Lymph % (Auto) [place] % (Auto) Lymph # (Auto) [place] # (Auto) Seg Neutrophils % 78.6 H Seg Neutrophils # 10.8 H APTT Heparin Anti-Xa Level ABG pH POC ABG pCO2 26.2 L POC ABG pO2 554.5 H ABG Hemoglobin 9.0 L ABG Oxyhemoglobin 99.0 H ABG Sodium 134.5 L ABG Potassium ABG Chloride ABG Glucose 220 H Potassium Glucose POC Glucose Lactic Acid Calcium Phosphorus AST ALT Troponin T C-Reactive Protein Albumin HDL Cholesterol Arterial Blood Glucose 220 H Arterial Blood Ionized Calcium 4.2 L Urine WBC (Auto) 14.0 H 09/25/20 09/25/20 09/25/20 18:15 18:15 18:15 WBC Hgb Hct MCV MCH RDW Lymph % (Auto) [place] % (Auto) Lymph # (Auto) [place] # (Auto) Seg Neutrophils % Seg Neutrophils # APTT 21.1 L Heparin Anti-Xa Level ABG pH POC ABG pCO2 POC ABG pO2 ABG Hemoglobin ABG Oxyhemoglobin ABG Sodium ABG Potassium ABG Chloride ABG Glucose Potassium Glucose 113 H POC Glucose Lactic Acid 2.60 H* Calcium Phosphorus AST 162 H ALT 131 H Troponin T 0.096 H C-Reactive Protein Albumin HDL Cholesterol Arterial Blood Glucose Arterial Blood Ionized Calcium Urine WBC (Auto) 09/25/20 09/25/20 09/26/20 23:13 23:13 03:15 WBC Hgb Hct MCV MCH RDW Lymph % (Auto) [place] % (Auto) Lymph # (Auto) [place] # (Auto) Seg Neutrophils % Seg Neutrophils # APTT Heparin Anti-Xa Level ABG pH 7.451 H POC ABG pCO2 27.1 L POC ABG pO2 ABG Hemoglobin 10.4 L ABG Oxyhemoglobin ABG Sodium 135.2 L ABG Potassium ABG Chloride 108.0 H ABG Glucose 137 H Potassium Glucose POC Glucose Lactic Acid 2.90 H* Calcium Phosphorus AST ALT Troponin T 0.170 H* D C-Reactive Protein Albumin HDL Cholesterol 60 H Arterial Blood Glucose 137 H Arterial Blood Ionized Calcium 4.2 L Urine WBC (Auto) 09/26/20 09/26/20 09/26/20 05:09 05:09 05:09 WBC 15.8 H Hgb 10.0 L Hct MCV 77 L MCH 24 L RDW 17.8 H Lymph % (Auto) 7.2 L [place] % (Auto) Lymph # (Auto) 1.1 L [place] # (Auto) 1.0 H Seg Neutrophils % 86.1 H Seg Neutrophils # 13.6 H APTT Heparin Anti-Xa Level ABG pH POC ABG pCO2 POC ABG pO2 ABG Hemoglobin ABG Oxyhemoglobin ABG Sodium ABG Potassium ABG Chloride ABG Glucose Potassium Glucose 114 H POC Glucose Lactic Acid 2.40 H* Calcium 8.1 L Phosphorus AST 112 H ALT 103 H Troponin T C-Reactive Protein Albumin 3.8 L HDL Cholesterol Arterial Blood Glucose Arterial Blood Ionized Calcium Urine WBC (Auto) 09/26/20 09/27/20 09/27/20 15:45 03:33 04:41 WBC Hgb 9.0 L Hct 28.6 L MCV MCH RDW Lymph % (Auto) [place] % (Auto) Lymph # (Auto) [place] # (Auto) Seg Neutrophils % Seg Neutrophils # APTT Heparin Anti-Xa Level ABG pH POC ABG pCO2 POC ABG pO2 141.6 H ABG Hemoglobin 9.3 L ABG Oxyhemoglobin ABG Sodium ABG Potassium 3.2 L ABG Chloride 108.0 H ABG Glucose 118 H Potassium Glucose POC Glucose Lactic Acid Calcium Phosphorus 2.20 L AST ALT Troponin T C-Reactive Protein 4.30 H Albumin HDL Cholesterol Arterial Blood Glucose 118 H Arterial Blood Ionized Calcium 4.2 L Urine WBC (Auto) 09/27/20 09/27/20 09/28/20 04:41 22:53 04:00 WBC Hgb Hct MCV MCH RDW Lymph % (Auto) [place] % (Auto) Lymph # (Auto) [place] # (Auto) Seg Neutrophils % Seg Neutrophils # APTT Heparin Anti-Xa Level 0.75 H ABG pH 7.467 H POC ABG pCO2 POC ABG pO2 78.9 L ABG Hemoglobin 9.8 L ABG Oxyhemoglobin ABG Sodium ABG Potassium ABG Chloride ABG Glucose 141 H Potassium Glucose POC Glucose 109 H Lactic Acid Calcium Phosphorus AST ALT Troponin T C-Reactive Protein Albumin HDL Cholesterol Arterial Blood Glucose 141 H Arterial Blood Ionized Calcium Urine WBC (Auto) 09/28/20 09/28/20 09/28/20 05:02 05:02 17:42 WBC 11.9 H Hgb 9.3 L Hct 29.5 L MCV 76 L MCH 24 L RDW 19.4 H Lymph % (Auto) [place] % (Auto) 11.1 H Lymph # (Auto) [place] # (Auto) 1.3 H Seg Neutrophils % 72.5 H Seg Neutrophils # 8.6 H APTT Heparin Anti-Xa Level ABG pH POC ABG pCO2 POC ABG pO2 ABG Hemoglobin ABG Oxyhemoglobin ABG Sodium ABG Potassium ABG Chloride ABG Glucose Potassium 3.4 L Glucose 126 H POC Glucose 69 L Lactic Acid Calcium Phosphorus AST 129 H ALT 60 H Troponin T C-Reactive Protein Albumin 3.7 L HDL Cholesterol Arterial Blood Glucose Arterial Blood Ionized Calcium Urine WBC (Auto) 09/29/20 09/29/20 09/29/20 04:00 05:53 08:39 WBC Hgb 10.0 L Hct MCV MCH RDW Lymph % (Auto) [place] % (Auto) Lymph # (Auto) [place] # (Auto) Seg Neutrophils % Seg Neutrophils # APTT Heparin Anti-Xa Level ABG pH POC ABG pCO2 POC ABG pO2 81.1 L ABG Hemoglobin 11.0 L ABG Oxyhemoglobin ABG Sodium ABG Potassium ABG Chloride 110.0 H ABG Glucose 129 H Potassium Glucose POC Glucose 58 L Lactic Acid Calcium Phosphorus AST ALT Troponin T C-Reactive Protein Albumin HDL Cholesterol Arterial Blood Glucose 129 H Arterial Blood Ionized Calcium Urine WBC (Auto) Chest x-ray: image reviewed (ETT riding high) Allied health notes reviewed: nursing
[2020-09-30] MEDS: FAMOTIDINE 20 MG/2 ML INJ IV SCH (00:41)
[2020-09-30] MEDS: SENNOSIDES/DOCUSATE SODIUM 8.6/50 MG TAB FEEDTUBE SCH ×3 (00:41→22:09)
[2020-09-30] MEDS: ONDANSETRON 4 MG/2 ML INJ IV PRN ×2 (01:49→10:01)
--- NOTE | 2020-09-30 04:45 | XRay Report ---
CHEST 1 VIEW, 09/30/2020 1:32 AM CLINICAL INFORMATION/INDICATION: Respiratory failure COMPARISON: Chest radiograph, 09/29/2020 at 5:16 AM FINDINGS: SUPPORT DEVICES: Support tubes and lines remain in stable position. HEART: There is stable mild enlargement of the cardiac silhouette. LUNGS/PLEURA: No focal airspace consolidation or significant pleural effusion is visualized. ADDITIONAL FINDINGS: No additional acute findings. IMPRESSION: 1. Stable appearance of the chest. Signer Name: Alice Suazo MD Signed: 09/30/2020 4:40 AM Workstation Name: [id number]
[2020-09-30] MEDS: LISINOPRIL 5 MG TAB PO SCH (09:24)
[2020-09-30] MEDS: carvediloL 6.25 MG TAB PO SCH (09:25)
[2020-09-30] MEDS: FAMOTIDINE 20 MG TAB PO SCH ×2 (09:25→22:09)
[2020-09-30] MEDS: levETIRAcetam 750 MG in DEXTROSE 5% IN WATER 100 ML IV SCH (09:26)
[2020-09-30] MEDS: HEPARIN/ 0.45% NACL DRIP 25,000 UNIT/500 ML BAG IV SCH (09:45)
--- NOTE | 2020-09-30 09:59 | Progress Note ---
Assessment and Plan Assessment and Plan --Out of the hospital cardiac arrest; Current Visit: Yes Status: Acute Patient treated" with ACLS protocol with return of perfusing cardiac rhythm, cardiology evaluation noted and appreciated, Follow echocardiogram LV function ejection fraction --Anoxic brain injury; Current Visit: Yes Status: Acute CT head no acute abnormality noted Neurochecks, supportive care Neurology consult requested, follow evaluation and recommendations neuro work-up per neurology, EEG when patient is off sedation -- Acute hypoxemic respiratory failure Current Visit: Yes Status: Acute Patient intubated and on ventilatory support: Critical care team following, wean vent as tolerated, Continue supportive care --NSTEMI (non-ST elevated myocardial infarction) Current Visit: Yes Status: Acute Due to cardiac arrest Follow cardiology recommendations -- Sepsis Current Visit: Yes Status: Acute Sepsis protocol: Chest x-ray, CBC, BMP, urinalysis, Continue empiric IV antibiotic therapy, IV fluid resuscitation therapy, Follow cultures --Leukocytosis; due to sepsis treat the underlying cause Follow cultures -- lactic acidosis Current Visit: Yes Status: Acute Plan to address problem: Treat sepsis, IV fluid resuscitation therapy, BMP, repeat BMP in a.m. Serial lactic acid level. -- Pneumonia Current Visit: Yes Status: Acute Plan to address problem: Pneumonia protocol: IV antibiotic therapy, chest x-ray, CBC, CMP, blood culture, -- Seizure disorder Current Visit: Yes Status: Acute Plan to address problem: Antiepilepsy therapy with Keppra, seizure precautions. --Obesity; BMI 39.1 --DVT prophylaxis Current Visit: Yes Status: Acute Plan to address problem: SCD to bilateral lower extremities while in bed, therapeutic anticoagulation --full CODE STATUS Poor prognosis I discussed with NOK patient's aunt Ms. Debora Minor and update patient's critical condition, poor prognosis , treatment plan and CODE STATUS. Full code The high probability of a clinically significant, sudden or life threatening deterioration of the [cardiac, pulmonary, renal, neuro] system(s) required my full and direct attention, intervention and personal management. The aggregate critical care time was [35] minutes. This time is in addition to time spent performing reported procedures but includes the following: [x] Data Review and interpretation [x] Patient assessment and monitoring of vital signs [x] Documentation [x] Medication orders and management Subjective Date of service: 09/29/20 Principal diagnosis: Cardiac arrest; Ac. respiratory failure; Anoxic encephalopathy; PNA; NSTEMI Interval history: 45 YO Female with Obesity Hypoventilation Syndrome, GERD presents to ED for evaluation. Patient is intubated and on ventilatory support at the time my evaluation is unable to provide history. Patient history taken from EMS staff, ED staff. As per staff EMS was notified for shortness of breath. Upon arrival the patient was found to be in distress and subsequently developed cardiac arrest. Patient was treated in accordance with ACLS protocol, as well as intubated in the field and subsequently transported to [facility] for further care and evaluation of the aforementioned symptoms. The patient was seen and evaluated in the emergency department. All lab and imaging studies reviewed. Patient was found to have persistent respiratory failure and was maintained on ventilatory s upport. Patient found to have sepsis, pneumonia, seizure disorder, metabolic acidosis, as well as NSTEMI.. Cardiology team consulted. Patient initiated on therapeutic anticoagulation as well as sepsis protocol and admitted to ICU. No further history is obtainable. No prior admission for review. All medication listed at time of admission has been reconciled. 09/26/2020 Patient remains unresponsive, intubated on ventilatory support. 09/27/2020; patient remains unresponsive, intubated on ventilatory support Follow neurology evaluation and recommendations Very poor prognosis, I spoke with patient's aunt Ms. Debora Minor 09/26/2020 About patient's condition , tests and reports and very poor prognosis. She verbalized understanding. I discussed the CODE STATUS Full code at this point 09/28/2020 S/p cardiac arrest outside the facility Intubated and unresponsive We will discuss CODE STATUS again 09/29/2020 S/p cardiac arrest Intubated and unresponsive Will request ethics consult and family meeting again regarding the prognosis and outcome Interval history: I have seen and examined the patient at the bedside this morning in ICU Patient's chart medications reviewed No new overnight events reported by the nursing Patient remains intubated on ventilatory support Unresponsive Vital signs noted Objective - Constitutional Vitals: Vital Signs - 12hr 09/29/20 09/29/20 09/29/20 22:00 22:30 23:00 Temperature Pulse Rate 114 H 109 H 97 H Pulse Rate [ From Monitor] Respiratory 18 16 15 Rate Blood Pressure 163/79 138/63 136/62 O2 Sat by Pulse 99 99 99 Oximetry 09/29/20 09/30/20 09/30/20 23:30 00:00 00:31 Temperature 100.8 F H Pulse Rate 90 85 83 Pulse Rate [ 90 From Monitor] Respiratory 12 16 17 Rate Blood Pressure 142/66 158/69 151/62 O2 Sat by Pulse 100 99 99 Oximetry 09/30/20 09/30/20 09/30/20 00:57 01:00 01:31 Temperature Pulse Rate 117 H 85 92 H Pulse Rate [ From Monitor] Respiratory 15 11 L Rate Blood Pressure 151/64 151/64 155/78 O2 Sat by Pulse 99 100 100 Oximetry 09/30/20 09/30/20 09/30/20 02:00 02:30 03:01 Temperature Pulse Rate 102 H 92 H 84 Pulse Rate [ From Monitor] Respiratory 16 12 17 Rate Blood Pressure 165/81 168/74 156/66 O2 Sat by Pulse 100 100 100 Oximetry 09/30/20 09/30/20 09/30/20 03:30 04:00 04:01 Temperature Pulse Rate 99 H 83 87 Pulse Rate [ 83 From Monitor] Respiratory 13 14 14 Rate Blood Pressure 172/70 164/70 O2 Sat by Pulse 100 99 98 Oximetry 09/30/20 09/30/20 09/30/20 04:30 04:46 05:00 Temperature Pulse Rate 82 111 H 99 H Pulse Rate [ From Monitor] Respiratory 13 12 Rate Blood Pressure 153/71 158/63 151/74 O2 Sat by Pulse 99 100 100 Oximetry 09/30/20 09/30/20 09/30/20 05:31 06:01 06:30 Temperature Pulse Rate 75 80 76 Pulse Rate [ From Monitor] Respiratory 14 13 13 Rate Blood Pressure 159/62 162/68 154/62 O2 Sat by Pulse 99 99 100 Oximetry 09/30/20 09/30/20 09/30/20 07:01 07:31 08:00 Temperature 102.8 F H Pulse Rate 78 80 95 H Pulse Rate [ From Monitor] Respiratory 14 13 13 Rate Blood Pressure 164/60 157/62 159/71 O2 Sat by Pulse 99 98 97 Oximetry 09/30/20 09/30/20 09/30/20 08:30 08:46 09:00 Temperature Pulse Rate 90 90 99 H Pulse Rate [ From Monitor] Respiratory 17 22 24 Rate Blood Pressure 161/65 166/75 150/70 O2 Sat by Pulse 96 94 96 Oximetry 0609/30/20 09/30/20 09:24 09:25 09:30 Temperature Pulse Rate 106 H 106 H 107 H Pulse Rate [ From Monitor] Respiratory 25 H Rate Blood Pressure 143/65 143/65 153/68 O2 Sat by Pulse 96 Oximetry General appearance: Present: no acute distress, well-nourished - EENT Eyes: PERRL, EOM intact ENT: hearing intact, clear oral mucosa Ears: bilateral: normal - Neck Neck: supple, normal ROM - Respiratory Respiratory effort: normal Respiratory: bilateral: CTA - Breasts Breasts: normal - Cardiovascular Heart rate: 78 Rhythm: regular Heart Sounds: Present: S1 & S2. Absent: gallop, rub Extremities: pulses intact, No edema, normal color, Full ROM - Gastrointestinal General gastrointestinal: Present: soft, non-tender, non-distended, normal bowel sounds - Genitourinary Female genitourinary: normal - Integumentary Integumentary: clear, warm, dry - Musculoskeletal Musculoskeletal: 1, strength equal bilaterally - Neurologic Neurologic: moves all extremities, other (Unresponsive) - Psychiatric Psychiatric: other (Unresponsive) - Labs CBC & Chem 7: 09/29/20 08:39 09/28/20 05:02 Labs: Abnormal lab results 09/29/20 09/30/20 Range/Units 05:53 00:10 POC Glucose 58 L 131 H (70-105) mg/dL HEART Score - HEART Score Troponin: Troponin T 0.170 ng/mL (0.00-0.029) H* D 09/25/20 23:13
--- NOTE | 2020-09-30 10:14 | Event Note ---
Date: 09/30/20 Patient is chronic office patient of Dr. Vin Del Castillo of [facility] heart specialists, we will transfer care to their service for continued cardiac management.
--- NOTE | 2020-09-30 13:18 | Progress Note ---
<ELGIN MORALES - Last Filed: 09/30/20 14:50> Assessment and Plan S/p cardiac arrest with ROSC * Patient is intubated and sedated. * Seizure activity was noted after ROSC. Neurology is following NSTEMI * Twelve-lead shows sinus rhythm with nonspecific T wave abnormalities in anterior leads. No acute ischemic changes. Troponin is elevated x2. Continue to trend CE's. Heart failure reduced ejection fraction in setting of new onset cardiomyopathy * Previous echocardiogram reviewed (10/23/2019): LVEF is 50 to 55%. LV chamber and wall dimensions are normal. Normal LV systolic function. Normal left atrial pressure and diastolic function. RV SF is normal. Mild MR. * Echocardiogram reviewed (09/25/2020): LVEF is 20 to 25%. Left ventricle is mildly dilated. LV SF is severely decreased. Severe global hypokinesis of the left ventricle. RV SF is normal. RVSP is 26 mmHg. * Optimize goal-directed therapy with cardioprotective regimen: Discontinue lisinopril. Initiate aspirin 81 mg daily. Resume home medications losartan 100 mg daily and increase Coreg to home dose of 25 mg twice daily. * Considering current acuity and comorbidities will plan for conservative cardiac management. If/when patient is stabilized will need ischemic eval and outpatient cardiac rehab post discharge. DVT Prophylaxis * Heparin gtt, SCDs in place. We will follow This patient was seen in conjunction with Dr. Amrit Cherry who agrees with this assessment and plan of care - Patient Problems (1) Dilated cardiomyopathy Current Visit: Yes Status: Acute (2) Cardiac arrest Current Visit: Yes Status: Acute (3) DVT prophylaxis Current Visit: Yes Status: Acute (4) Seizure Current Visit: Yes Status: Acute (5) NSTEMI (non-ST elevated myocardial infarction) Current Visit: Yes Status: Acute Subjective Date of service: 09/30/20 Principal diagnosis: Cardiac arrest; Ac. respiratory failure; Anoxic encephalopathy; PNA; NSTEMI Interval history: This patient is a 45-year-old female with a significant history of hypertension, bilateral chronic deafness, bronchial asthma, history of aortic dissection. She is followed by Dr. Vin Del Castillo in our office. Patient presented to [facility] ER via EMS after witnessed cardiac arrest. Initial rhythm was asystole. Patient was seen by [facility] on admission, subsequently transferred care to [facility] heart specialists. Patient is being followed by neurology and anoxic injury is suspected. Per [facility]: 45 year old female brought in by EMS after a witnessed cardiac arrest. Initial rhythm was asystole and patient received 2 rounds of epi and one bicarbonate followed by defibrillation x 2. EMS were able to achieve ROSC. Upon presentation to the ED patient did have a pulse. Patient had a seizure in the ED therefore a CT head eas obtained showing NAP. No family at the bedside. Initial ECG showing no ST-T changes to suggest ischemic heart disease as etiology behind cardiac arrest. Also troponin is minimally elevated and is not consistent with ACS. Patient is currently intubated. Objective Last Vital Signs Temp 102.8 F H 09/30/20 08:00 Pulse 80 09/30/20 12:30 Resp 26 H 09/30/20 12:30 BP 160/68 09/30/20 12:30 Pulse Ox 98 09/30/20 12:30 - Physical Examination General: Other (intubated) Neck: Positive: neck supple, trachea midline Lungs: Positive: Ventilated Respirations Neuro: Positive: Other (Patient intubated and sedated) Abdomen: Positive: Soft Extremities: Present: normal - Allied health notes Allied health notes reviewed: nursing <MACARIO CHERRY - Last Filed: 09/30/20 16:52> Assessment and Plan Cardiac Arrest/Asystole ROSC after ACLS Patient intubated and sedated No acute EKG changes Elevated CE Febrile Tmax 102.8 Leukocytosis Sinus tachycardia Acute respiratory failure Acute encephalopathy/?anoxic encephalopathy. New cardiomyopathy EF 20-25% History of Asthma History of Obesity/OHS Neurology following Will follow with you Objective Vital Signs Temp Pulse Pulse Resp BP Pulse Ox 09/30/20 16:29 109 H 15 95/43 98 09/30/20 16:00 102.8 F H 09/30/20 15:30 116 H 16 85/38 97 09/30/20 15:00 114 H 16 92/40 97 09/30/20 14:30 117 H 15 97/49 96 09/30/20 14:02 142 H 126/63 09/30/20 14:00 142 H 31 H 126/63 98 09/30/20 13:30 130 H 28 H 131/67 97 09/30/20 13:00 110 H 26 H 158/65 95 09/30/20 12:30 80 26 H 160/68 98 09/30/20 12:00 102.6 F H 82 82 26 H 154/67 98 09/30/20 11:30 105 H 25 H 148/69 98 09/30/20 11:00 114 H 27 H 137/60 98 09/30/20 10:30 120 H 27 H 150/72 99 09/30/20 10:19 118 H 28 H 158/72 99 09/30/20 10:00 117 H 28 H 158/72 99 09/30/20 09:30 107 H 25 H 153/68 96 09/30/20 09:25 106 H 143/65 09/30/20 09:24 106 H 143/65 09/30/20 09:00 99 H 24 150/70 96 09/30/20 08:46 90 22 166/75 94 09/30/20 08:30 90 17 161/65 96 09/30/20 08:00 102.8 F H 95 H 95 H 13 159/71 97 09/30/20 07:31 80 13 157/62 98 09/30/20 07:01 78 14 164/60 99 09/30/20 06:30 76 13 154/62 100 09/30/20 06:01 80 13 162/68 99 09/30/20 05:31 75 14 159/62 99 09/30/20 05:00 99 H 12 151/74 100 09/30/20 04:46 111 H 158/63 100 09/30/20 04:30 82 13 153/71 99 09/30/20 04:01 87 14 164/70 98 09/30/20 04:00 83 83 14 99 09/30/20 03:30 99 H 13 172/70 100 09/30/20 03:01 84 17 156/66 100 09/30/20 02:30 92 H 12 168/74 100 09/30/20 02:00 102 H 16 165/81 100 09/30/20 01:31 92 H 11 L 155/78 100 09/30/20 01:00 85 15 151/64 100 09/30/20 00:57 117 H 151/64 99 09/30/20 00:31 83 17 151/62 99 09/30/20 00:00 100.8 F H 85 90 16 158/69 99 09/29/20 23:30 90 12 142/66 100 09/29/20 23:00 97 H 15 136/62 99 09/29/20 22:30 109 H 16 138/63 99 09/29/20 22:00 114 H 18 163/79 99 09/29/20 21:47 107 H 160/62 09/29/20 21:31 96 H 17 171/67 100 09/29/20 21:01 85 19 152/51 98 09/29/20 20:57 85 152/51 99 09/29/20 20:01 77 13 165/73 100 09/29/20 20:00 102.3 F H 76 76 14 99 09/29/20 19:01 84 18 166/58 100 09/29/20 18:00 90 19 152/62 100 09/29/20 17:01 85 14 142/51 100 - Labs and Meds CBC 09/30/20 Range/Units 15:05 WBC 12.5 H (4.5-11.0) K/mm3 RBC 4.10 (3.65-5.03) M/mm3 Hgb 9.9 L (10.1-14.3) gm/dl Hct 31.9 (30.3-42.9) % Plt Count 370 (140-440) K/mm3 Lymph # (Auto) 2.5 (1.2-5.4) K/mm3 Hud[place]eth # (Auto) 1.7 H (0.0-0.8) K/mm3 Eos # (Auto) 0.0 (0.0-0.4) K/mm3 Baso # (Auto) 0.1 (0.0-0.1) K/mm3 Comprehensive Metabolic Panel 09/30/20 Range/Units 15:05 Sodium 145 (137-145) mmol/L Potassium 3.8 (3.6-5.0) mmol/L Chloride 109.1 H (98-107) mmol/L Carbon Dioxide 26 (22-30) mmol/L BUN 18 H (7-17) mg/dL Creatinine 1.4 H (0.6-1.2) mg/dL Glucose 122 H (65-100) mg/dL Calcium 9.4 (8.4-10.2) mg/dL
[2020-09-30] MEDS: HYDROmorphone 1 MG/1 ML INJ IV PRN (14:05)
[2020-09-30] MEDS: ACETAMINOPHEN 325 MG TAB PO PRN ×2 (14:08→22:12)
--- NOTE | 2020-09-30 14:50 | Progress Note ---
Assessment and Plan Cardiac arrest with return of spontaneous circulation. Acute respiratory failure, on mechanical ventilatory support. Acute toxic metabolic encephalopathy. Possible anoxic encephalopathy. Obesity. History of obesity hypoventilation syndrome. Leukocytosis. Likely aspiration pneumonia, bilateral. Anemia that is microcytic. Lactic acidosis. Elevated serum transaminases. Non-ST elevation myocardial infarction (Seems STAN is interested in a trach & PEG but awaits neurological evaluation report) - neurology evaluation ongoing - tentatively begin SBT's in am (tolerated bedside SBT well) - follow EEG report - further neuroimaging per neurologist - follow labs ordered - begin Reglan re: GI motility - reduce set rate to 10/min - get bilateral lower extremity dopplers re: DVT - continue IV Heparin drip for now - continue care as below otherwise; - continue to wean supplemental oxygen for target O2 sat's > 90% acutely - VAP bundle addressed - continue lung protective strategies - continue bronchodilators with pulmonary hygiene per RT - wean per pulmonary driven protocols otherwise - continue Daily SAT and SBT assessment as tolerated - continue accuchecks with glycemic control per SSI (While critically ill target blood glucose of 140-180 mg/dL; avoid hypoglycemia) - sedation prn for target RASS 0 to -1 - avoid nephrotoxins, renally dose all medications - continue to avoid benzodiazepine's, reduce the possibility of delirium - completed AB's per ID rec's - prn analgesia per CPOT score - Maintenance of sleep-wake cycle, avoid delirium - continue enteral nutritional support at goal rate as tolerated - G.I. & VTE prophylaxis - PT/OT/ROM exercises - continue mobility protocols for pressure ulcer prophylaxis - Monitor hemodynamics closely - continue other care per attending / other consultants - discharge planning ongoing concurrently COVID SPECIFIC INTERVENTIONS - COVID tests result was negative .... Re-evaluate in am & prn CONDITION: CRITICAL PROGNOSIS: GUARDED CODE STATUS: FULL CODE The high probability of a clinically significant, sudden or life-threatening deterioration of the [respiratory, cardiovascular & neurologic] system(s) required my full and direct attention, intervention and personal management. The aggregate critical care time was [36] minutes without overlap. Time includes spent on; [x] Data Review and interpretation [x] Patient assessment and monitoring of vital signs [x] Documentation [x] Medication orders and management Subjective Date of service: 09/30/20 Principal diagnosis: Cardiac arrest; Ac. respiratory failure; Anoxic encephalopathy; PNA; NSTEMI Interval history: Patient is seen today for: Cardiac arrest with ROSC; Acute respiratory failure; Anoxic encephalopathy; Obesity; OHS; Aspiration pneumonia; NSTEMI Seen and examined at bedside; 24hour events reviewed; nursing and respiratory care staff consulted; no adverse overnight events reported to me; resting in bed; remains on MVS; AMS is persistent; EEG done and showing minimal activity but no seizure spikes noted; neurology to evaluate; no emesis or overt asdpiration; Objective Vital Signs - 12hr 09/30/20 09/30/20 09/30/20 03:01 03:30 04:00 Temperature Pulse Rate 84 99 H 83 Pulse Rate [ 83 From Monitor] Respiratory 17 13 14 Rate Blood Pressure 156/66 172/70 O2 Sat by Pulse 100 100 99 Oximetry 09/30/20 09/30/20 09/30/20 04:01 04:30 04:46 Temperature Pulse Rate 87 82 111 H Pulse Rate [ From Monitor] Respiratory 14 13 Rate Blood Pressure 164/70 153/71 158/63 O2 Sat by Pulse 98 99 100 Oximetry 09/30/20 09/30/20 09/30/20 05:00 05:31 06:01 Temperature Pulse Rate 99 H 75 80 Pulse Rate [ From Monitor] Respiratory 12 14 13 Rate Blood Pressure 151/74 159/62 162/68 O2 Sat by Pulse 100 99 99 Oximetry 09/30/20 09/30/20 09/30/20 06:30 07:01 07:31 Temperature Pulse Rate 76 78 80 Pulse Rate [ From Monitor] Respiratory 13 14 13 Rate Blood Pressure 154/62 164/60 157/62 O2 Sat by Pulse 100 99 98 Oximetry 09/30/20 09/30/20 09/30/20 08:00 08:30 08:46 Temperature 102.8 F H Pulse Rate 95 H 90 90 Pulse Rate [ 95 H From Monitor] Respiratory 13 17 22 Rate Blood Pressure 159/71 161/65 166/75 O2 Sat by Pulse 97 96 94 Oximetry 09/30/20 09/30/20 09/30/20 09:00 09:24 09:25 Temperature Pulse Rate 99 H 106 H 106 H Pulse Rate [ From Monitor] Respiratory 24 Rate Blood Pressure 150/70 143/65 143/65 O2 Sat by Pulse 96 Oximetry 09/30/20 09/30/20 09/30/20 09:30 10:00 10:19 Temperature Pulse Rate 107 H 117 H 118 H Pulse Rate [ From Monitor] Respiratory 25 H 28 H 28 H Rate Blood Pressure 153/68 158/72 158/72 O2 Sat by Pulse 96 99 99 Oximetry 09/30/20 09/30/20 09/30/20 10:30 11:00 11:30 Temperature Pulse Rate 120 H 114 H 105 H Pulse Rate [ From Monitor] Respiratory 27 H 27 H 25 H Rate Blood Pressure 150/72 137/60 148/69 O2 Sat by Pulse 99 98 98 Oximetry 09/30/20 09/30/20 09/30/20 12:00 12:30 14:02 Temperature Pulse Rate 82 80 142 H Pulse Rate [ 82 From Monitor] Respiratory 26 H 26 H Rate Blood Pressure 154/67 160/68 126/63 O2 Sat by Pulse 98 98 Oximetry Constitutional: no acute distress, other (middle aged obese female with mildly increased respiratory effort at rest on MVS) Eyes: non-icteric ENT: oropharynx moist, other (ETT 23 cm JAH) Neck: supple, no lymphadenopathy, no JVD Effort: mildly labored Ascultation: Bilateral: rhonchi Percussion: Bilateral: not dull Cardiovascular: regular rate and rhythm Gastrointestinal: normoactive bowel sounds, soft, non-tender, non-distended Integumentary: normal Extremities: no cyanosis, no edema, pulses normal, no ischemia or petechiae Neurologic: pupils equal and round, unable to assess Psychiatric: other (unable to assess re: AMS) CBC and BMP: 10/01/20 05:56 10/01/20 05:56 ABG, PT/INR, D-dimer: ABG ABG pH 7.469 (7.320-7.450) H 09/30/20 10:45 POC ABG pCO2 39.5 mmHg (32.0-48.0) 09/30/20 10:45 POC ABG pO2 86.6 mmHg (83-108) 09/30/20 10:45 POC ABG HCO3 28.0 09/30/20 10:45 ABG O2 Saturation 96.8 (0-100) 09/30/20 10:45 PT/INR, D-dimer PT 13.7 Sec. (12.2-14.9) 09/25/20 18:15 INR 1.00 (0.87-1.13) 09/25/20 18:15 Abnormal lab findings: Abnormal Labs 09/25/20 09/25/20 09/25/20 17:19 17:21 18:15 WBC 13.8 H Hgb 9.9 L Hct MCV 76 L MCH 23 L RDW 17.9 H Lymph % (Auto) Jerome % (Auto) Lymph # (Auto) Jerome # (Auto) Seg Neutrophils % 78.6 H Seg Neutrophils # 10.8 H APTT Heparin Anti-Xa Level ABG pH POC ABG pCO2 26.2 L POC ABG pO2 554.5 H ABG Hemoglobin 9.0 L ABG Oxyhemoglobin 99.0 H ABG Sodium 134.5 L ABG Potassium ABG Chloride ABG Glucose 220 H Potassium Glucose POC Glucose Lactic Acid Calcium Phosphorus AST ALT Troponin T C-Reactive Protein Albumin HDL Cholesterol Arterial Blood Glucose 220 H Arterial Blood Ionized Calcium 4.2 L Urine WBC (Auto) 14.0 H 09/25/20 09/25/20 09/25/20 18:15 18:15 18:15 WBC Hgb Hct MCV MCH RDW Lymph % (Auto) Jerome % (Auto) Lymph # (Auto) Jerome # (Auto) Seg Neutrophils % Seg Neutrophils # APTT 21.1 L Heparin Anti-Xa Level ABG pH POC ABG pCO2 POC ABG pO2 ABG Hemoglobin ABG Oxyhemoglobin ABG Sodium ABG Potassium ABG Chloride ABG Glucose Potassium Glucose 113 H POC Glucose Lactic Acid 2.60 H* Calcium Phosphorus AST 162 H ALT 131 H Troponin T 0.096 H C-Reactive Protein Albumin HDL Cholesterol Arterial Blood Glucose Arterial Blood Ionized Calcium Urine WBC (Auto) 09/25/20 09/25/20 09/26/20 23:13 23:13 03:15 WBC Hgb Hct MCV MCH RDW Lymph % (Auto) Jerome % (Auto) Lymph # (Auto) Jerome # (Auto) Seg Neutrophils % Seg Neutrophils # APTT Heparin Anti-Xa Level ABG pH 7.451 H POC ABG pCO2 27.1 L POC ABG pO2 ABG Hemoglobin 10.4 L ABG Oxyhemoglobin ABG Sodium 135.2 L ABG Potassium ABG Chloride 108.0 H ABG Glucose 137 H Potassium Glucose POC Glucose Lactic Acid 2.90 H* Calcium Phosphorus AST ALT Troponin T 0.170 H* D C-Reactive Protein Albumin HDL Cholesterol 60 H Arterial Blood Glucose 137 H Arterial Blood Ionized Calcium 4.2 L Urine WBC (Auto) 09/26/20 09/26/20 09/26/20 05:09 05:09 05:09 WBC 15.8 H Hgb 10.0 L Hct MCV 77 L MCH 24 L RDW 17.8 H Lymph % (Auto) 7.2 L Jerome % (Auto) Lymph # (Auto) 1.1 L Jerome # (Auto) 1.0 H Seg Neutrophils % 86.1 H Seg Neutrophils # 13.6 H APTT Heparin Anti-Xa Level ABG pH POC ABG pCO2 POC ABG pO2 ABG Hemoglobin ABG Oxyhemoglobin ABG Sodium ABG Potassium ABG Chloride ABG Glucose Potassium Glucose 114 H POC Glucose Lactic Acid 2.40 H* Calcium 8.1 L Phosphorus AST 112 H ALT 103 H Troponin T C-Reactive Protein Albumin 3.8 L HDL Cholesterol Arterial Blood Glucose Arterial Blood Ionized Calcium Urine WBC (Auto) 09/26/20 09/27/20 09/27/20 15:45 03:33 04:41 WBC Hgb 9.0 L Hct 28.6 L MCV MCH RDW Lymph % (Auto) Jerome % (Auto) Lymph # (Auto) Jerome # (Auto) Seg Neutrophils % Seg Neutrophils # APTT Heparin Anti-Xa Level ABG pH POC ABG pCO2 POC ABG pO2 141.6 H ABG Hemoglobin 9.3 L ABG Oxyhemoglobin ABG Sodium ABG Potassium 3.2 L ABG Chloride 108.0 H ABG Glucose 118 H Potassium Glucose POC Glucose Lactic Acid Calcium Phosphorus 2.20 L AST ALT Troponin T C-Reactive Protein 4.30 H Albumin HDL Cholesterol Arterial Blood Glucose 118 H Arterial Blood Ionized Calcium 4.2 L Urine WBC (Auto) 09/27/20 09/27/20 09/28/20 04:41 22:53 04:00 WBC Hgb Hct MCV MCH RDW Lymph % (Auto) Jerome % (Auto) Lymph # (Auto) Jerome # (Auto) Seg Neutrophils % Seg Neutrophils # APTT Heparin Anti-Xa Level 0.75 H ABG pH 7.467 H POC ABG pCO2 POC ABG pO2 78.9 L ABG Hemoglobin 9.8 L ABG Oxyhemoglobin ABG Sodium ABG Potassium ABG Chloride ABG Glucose 141 H Potassium Glucose POC Glucose 109 H Lactic Acid Calcium Phosphorus AST ALT Troponin T C-Reactive Protein Albumin HDL Cholesterol Arterial Blood Glucose 141 H Arterial Blood Ionized Calcium Urine WBC (Auto) 09/28/20 09/28/20 09/28/20 05:02 05:02 17:42 WBC 11.9 H Hgb 9.3 L Hct 29.5 L MCV 76 L MCH 24 L RDW 19.4 H Lymph % (Auto) Jerome % (Auto) 11.1 H Lymph # (Auto) Jerome # (Auto) 1.3 H Seg Neutrophils % 72.5 H Seg Neutrophils # 8.6 H APTT Heparin Anti-Xa Level ABG pH POC ABG pCO2 POC ABG pO2 ABG Hemoglobin ABG Oxyhemoglobin ABG Sodium ABG Potassium ABG Chloride ABG Glucose Potassium 3.4 L Glucose 126 H POC Glucose 69 L Lactic Acid Calcium Phosphorus AST 129 H ALT 60 H Troponin T C-Reactive Protein Albumin 3.7 L HDL Cholesterol Arterial Blood Glucose Arterial Blood Ionized Calcium Urine WBC (Auto) 09/29/20 09/29/20 09/29/20 04:00 05:53 08:39 WBC Hgb 10.0 L Hct MCV MCH RDW Lymph % (Auto) Jerome % (Auto) Lymph # (Auto) Jerome # (Auto) Seg Neutrophils % Seg Neutrophils # APTT Heparin Anti-Xa Level ABG pH POC ABG pCO2 POC ABG pO2 81.1 L ABG Hemoglobin 11.0 L ABG Oxyhemoglobin ABG Sodium ABG Potassium ABG Chloride 110.0 H ABG Glucose 129 H Potassium Glucose POC Glucose 58 L Lactic Acid Calcium Phosphorus AST ALT Troponin T C-Reactive Protein Albumin HDL Cholesterol Arterial Blood Glucose 129 H Arterial Blood Ionized Calcium Urine WBC (Auto) 09/30/20 09/30/20 00:10 10:45 WBC Hgb Hct MCV MCH RDW Lymph % (Auto) Jerome % (Auto) Lymph # (Auto) Jerome # (Auto) Seg Neutrophils % Seg Neutrophils # APTT Heparin Anti-Xa Level ABG pH 7.469 H POC ABG pCO2 POC ABG pO2 ABG Hemoglobin 10.4 L ABG Oxyhemoglobin ABG Sodium 146.2 H ABG Potassium ABG Chloride 109.0 H ABG Glucose 155 H Potassium Glucose POC Glucose 131 H Lactic Acid Calcium Phosphorus AST ALT Troponin T C-Reactive Protein Albumin HDL Cholesterol Arterial Blood Glucose 155 H Arterial Blood Ionized Calcium Urine WBC (Auto) Chest x-ray: other (ETT riding a little high) Allied health notes reviewed: nursing
--- NOTE | 2020-09-30 14:58 | Progress Note ---
Subjective Date of service: 09/30/20 Principal diagnosis: Cardiac arrest; Ac. respiratory failure; Anoxic encephalopathy; PNA; NSTEMI Interval history: 45 YO Female with Obesity Hypoventilation Syndrome, GERD presents to ED for evaluation. Patient is intubated and on ventilatory support at the time my evaluation is unable to provide history. Patient history taken from EMS staff, ED staff. As per staff EMS was notified for shortness of breath. Upon arrival the patient was found to be in distress and subsequently developed cardiac arrest. Patient was treated in accordance with ACLS protocol, as well as intubated in the field and subsequently transported to [facility] for further care and evaluation of the aforementioned symptoms. The patient was seen and evaluated in the emergency department. All lab and imaging studies reviewed. Patient was found to have persistent respiratory failure and was maintained on ventilatory support. Patient found to have sepsis, pneumonia, seizure disorder, metabolic acidosis, as well as NSTEMI.. Cardiology team consulted. Patient initiated on therapeutic anticoagulation as well as sepsis protocol and admitted to ICU. No further history is obtainable. No prior admission for review. All medication listed at time of admission has been reconciled. 09/26/2020 Patient remains unresponsive, intubated on ventilatory support. 09/27/2020; patient remains unresponsive, intubated on ventilatory support Follow neurology evaluation and recommendations Very poor prognosis, I spoke with patient's aunt Ms. Debora Minor 09/26/2020 About patient's condition , tests and reports and very poor prognosis. She verbalized understanding. I discussed the CODE STATUS Full code at this point 09/28/2020 S/p cardiac arrest outside the facility Intubated and unresponsive We will discuss CODE STATUS again 09/29/2020 S/p cardiac arrest Intubated and unresponsive Will request ethics consult and family meeting again regarding the prognosis and outcome 09/30/20 Discussed with family They will decide about DNR--amenable Interval history: I have seen and examined the patient at the bedside this morning in ICU Patient's chart medications reviewed No new overnight events reported by the nursing Patient remains intubated on ventilatory support Unresponsive Vital signs noted Objective - Constitutional Vitals: Vital Signs - 12hr 09/30/20 09/30/20 09/30/20 03:01 03:30 04:00 Temperature Pulse Rate 84 99 H 83 Pulse Rate [ 83 From Monitor] Respiratory 17 13 14 Rate Blood Pressure 156/66 172/70 O2 Sat by Pulse 100 100 99 Oximetry 09/30/20 09/30/20 09/30/20 04:01 04:30 04:46 Temperature Pulse Rate 87 82 111 H Pulse Rate [ From Monitor] Respiratory 14 13 Rate Blood Pressure 164/70 153/71 158/63 O2 Sat by Pulse 98 99 100 Oximetry 09/30/20 09/30/20 09/30/20 05:00 05:31 06:01 Temperature Pulse Rate 99 H 75 80 Pulse Rate [ From Monitor] Respiratory 12 14 13 Rate Blood Pressure 151/74 159/62 162/68 O2 Sat by Pulse 100 99 99 Oximetry 09/30/20 09/30/20 09/30/20 06:30 07:01 07:31 Temperature Pulse Rate 76 78 80 Pulse Rate [ From Monitor] Respiratory 13 14 13 Rate Blood Pressure 154/62 164/60 157/62 O2 Sat by Pulse 100 99 98 Oximetry 09/30/20 09/30/20 09/30/20 08:00 08:30 08:46 Temperature 102.8 F H Pulse Rate 95 H 90 90 Pulse Rate [ 95 H From Monitor] Respiratory 13 17 22 Rate Blood Pressure 159/71 161/65 166/75 O2 Sat by Pulse 97 96 94 Oximetry 09/30/20 09/30/20 09/30/20 09:00 09:24 09:25 Temperature Pulse Rate 99 H 106 H 106 H Pulse Rate [ From Monitor] Respiratory 24 Rate Blood Pressure 150/70 143/65 143/65 O2 Sat by Pulse 96 Oximetry 09/30/20 09/30/20 09/30/20 09:30 10:00 10:19 Temperature Pulse Rate 107 H 117 H 118 H Pulse Rate [ From Monitor] Respiratory 25 H 28 H 28 H Rate Blood Pressure 153/68 158/72 158/72 O2 Sat by Pulse 96 99 99 Oximetry 09/30/20 09/30/20 09/30/20 10:30 11:00 11:30 Temperature Pulse Rate 120 H 114 H 105 H Pulse Rate [ From Monitor] Respiratory 27 H 27 H 25 H Rate Blood Pressure 150/72 137/60 148/69 O2 Sat by Pulse 99 98 98 Oximetry 09/30/20 09/30/20 09/30/20 12:00 12:30 14:02 Temperature Pulse Rate 82 80 142 H Pulse Rate [ 82 From Monitor] Respiratory 26 H 26 H Rate Blood Pressure 154/67 160/68 126/63 O2 Sat by Pulse 98 98 Oximetry - Labs CBC & Chem 7: 10/01/20 05:56 10/01/20 05:56 Labs: Abnormal lab results 09/30/20 09/30/20 Range/Units 00:10 10:45 ABG pH 7.469 H (7.320-7.450) ABG Hemoglobin 10.4 L (12.0-17.5) ABG Sodium 146.2 H (136.0-145.0) mmol/L ABG Chloride 109.0 H (98-107) mmol/L ABG Glucose 155 H (65-95) mg/dL POC Glucose 131 H (70-105) mg/dL Arterial Blood Glucose 155 H (65-95) mg/dL HEART Score - HEART Score Troponin: Troponin T 0.170 ng/mL (0.00-0.029) H* D 09/25/20 23:13
[2020-09-30] MEDS ORDERED: SODIUM CHLORIDE 0.9% 1000 ML 1,000 ML ONE (15:33)
[2020-09-30] MEDS ORDERED: SODIUM CHLORIDE 0.9% 1000 ML 1,000 ML IV ONE (16:00)
[2020-09-30 16:04] LABS: Basophils # (Auto) 0.1 K/mm3 (0.0-0.1); Eosinophils % (Auto) 0.4 % (0.0-4.3); Hematocrit 31.9 % (30.3-42.9); Hemoglobin 9.9 gm/dl (10.1-14.3); Lymphocytes # (Auto) 2.5 K/mm3 (1.2-5.4); Lymphocytes % (Auto) 20.1 % (13.4-35.0); Mean Corpuscular HGB Conc 31 % (30-34); Mean Corpuscular Volume 78 fl (79-97); Monocytes # (Auto) 1.7 K/mm3 (0.0-0.8); Monocytes % (Auto) 13.5 % (0.0-7.3); Platelet Count 370 K/mm3 (140-440)
[2020-09-30] MEDS: LOSARTAN 50 MG TAB PO SCH (16:30)
[2020-09-30] MEDS ORDERED: METOCLOPRAMIDE 10 MG/2 ML INJ IV PRN (16:33)
[2020-09-30 16:34] LABS: Calcium 9.4 mg/dL (8.4-10.2)
[2020-09-30] MEDS ORDERED: MAGNESIUM SULFATE 1 GM in SODIUM CHLORIDE 0.9% 50 ML IV ONE (18:00)
[2020-09-30] MEDS ORDERED: SODIUM PHOSPHATE 15 MMOL in SODIUM CHLORIDE 0.9% 250ML 150 ML IV ONE (18:00)
[2020-09-30] MEDS: carvediloL 25 MG TAB PO SCH (22:09)
[2020-09-30] MEDS: levETIRAcetam 500 MG/5 ML ORAL LIQD PO SCH (22:09)
[2020-10-01 06:10] LABS: Mean Corpuscular HGB Conc 30 % (30-34); Mean Corpuscular Volume 78 fl (79-97); Platelet Count 354 K/mm3 (140-440); Red Blood Count 4.13 M/mm3 (3.65-5.03)
[2020-10-01 06:11] LABS: Hematocrit 32.1 % (30.3-42.9); Hemoglobin 9.7 gm/dl (10.1-14.3); Red Cell Distribution Width 21.1 % (13.2-15.2)
--- NOTE | 2020-10-01 06:18 | XRay Report ---
CHEST 1 VIEW, 10/01/2020 1:51 AM CLINICAL INFORMATION/INDICATION: Respiratory failure COMPARISON: Chest radiograph, 09/30/2020 at 2:31 AM FINDINGS: SUPPORT DEVICES: Endotracheal tube and esophagogastric tube remain in similar position. HEART: There is stable mild enlargement of the cardiac silhouette. LUNGS/PLEURA: No focal consolidation, large pleural effusion or pneumothorax is visualized. ADDITIONAL FINDINGS: No additional acute findings. IMPRESSION: 1. Stable appearance of the chest. Signer Name: Alice Suazo MD Signed: 10/01/2020 6:14 AM Workstation Name: [id number]
[2020-10-01 07:24] LABS: BUN/Creatinine Ratio 14; Blood Urea Nitrogen 15 mg/dL (7-17); Calcium 9.1 mg/dL (8.4-10.2); Hemolysis Index 98
--- NOTE | 2020-10-01 09:04 | Consultation ---
History of Present Illness Consult date: 10/01/20 Reason for Consult: Post cardiac arrest History of present illness: Unresponsive History of present illness: 45 YO Female with Obesity Hypoventilation Syndrome, GERD presents to ED for evaluation. Patient is intubated and on ventilatory support at the time my evaluation is unable to provide history. Patient history taken from EMS staff, ED staff. As per staff EMS was notified for shortness of breath. Upon arrival the patient was found to be in distress and subsequently developed cardiac arrest. Patient was treated in accordance with ACLS protocol, as well as intubated in the field and subsequently transported to [facility] for further care and evaluation of the aforementioned symptoms. The patient was seen and evaluated in the emergency department. All lab and imaging studies reviewed. Patient was found to have persistent respiratory failure and was maintained on ventilatory support. Patient found to have sepsis, pneumonia, seizure disorder, metabolic acidosis, as well as NSTEMI.. Cardiology team consulted. Patient initiated on therapeutic anticoagulation as well as sepsis protocol and admitted to ICU. No further history is obtainable. No prior admission for review. All medication listed at time of admission has been reconciled. #09/26/2020 Patient remains unresponsive, intubated on ventilatory support. #09/27/2020; patient remains unresponsive, intubated on ventilatory support #09/28/2020 S/p cardiac arrest outside the facility Intubated and unresponsive #09/29/2020 S/p cardiac arrest Intubated and unresponsive #09/30/20 Discussed with family They will decide about DNR--amenable Neurology consulted today for assesment of neurological status pt. is intubated off sedation over X48 hours Past History Past Medical History: GERD, other (See HPI) Past Surgical History: No surgical history (Thank you) Social history: single. denies: smoking, alcohol abuse Family history: hypertension Medications and Allergies Allergies Allergy/AdvReac Type Severity Reaction Status Date / Time No Known Allergies Allergy Unverified 06/19/19 11:32 Home Medications Medication Instructions Recorded Confirmed Last Taken Type Amoxicillin [Amoxicillin TAB] 875 mg PO BID #14 tablet 06/19/19 Unknown Rx Esomeprazole Magnesium [NexIUM] 40 mg PO QDAY #30 capsule 06/19/19 Unknown Rx guaiFENesin [Robitussin] 5 ml PO TID PRN #100 ml 03/02/20 Unknown Rx Active Meds: Active Medications Famotidine (Famotidine 20 Mg/2 Ml Inj) 20 mg IV BID RAMESH Hydrophilic Ointment (Lip Therapy Vaseline) 1 applic TP Q2HR PRN PRN Reason: Dry Lips Epinephrine 8 mg/ Sodium (Chloride) 250 mls @ 3.75 mls/hr IV TITR ONE; Protocol Stop: 09/28/20 11:33 Lorazepam 100 mg/ Sodium Chloride/ Miscellaneous Information 100 mls @ 1 mls/hr IV TITR RAMESH; Protocol Lorazepam (Lorazepam 2 Mg/Ml Vial) 2 mg IV Q10MIN PRN PRN Reason: Agitation Last Admin: 09/25/20 18:22 Dose: 2 mg Documented by: Multi-Ingred Cream/Lotion/Oil/Oint (Mineral Oil/Petrolatum, White Ophth Oint 3.5 Gm) 1 applic OU Q4HR PRN PRN Reason: Dry Eye(s) Senna/Docusate Sodium (Sennosides/Docusate Sodium 8.6/50 Mg Tab) 1 tab FEEDTUBE BID RAMESH Review of Systems ROS unobtainable: due to endotracheal tube, due to mental status 09/25/20 18:15 Past History Past Medical History: GERD, other (See HPI) Past Surgical History: No surgical history (Thank you) Social history: single. denies: smoking, alcohol abuse Family history: hypertension Medications and Allergies Allergies Allergy/AdvReac Type Severity Reaction Status Date / Time No Known Allergies Allergy Unverified 06/19/19 11:32 Home Medications Medication Instructions Recorded Confirmed Last Taken Type Amoxicillin [Amoxicillin TAB] 875 mg PO BID #14 tablet 06/19/19 Unknown Rx Esomeprazole Magnesium [NexIUM] 40 mg PO QDAY #30 capsule 06/19/19 Unknown Rx guaiFENesin [Robitussin] 5 ml PO TID PRN #100 ml 06/19/19 Unknown Rx Active Meds: Active Medications Acetaminophen (Acetaminophen 650 Mg Rect Supp) 650 mg [place] Q6H PRN PRN Reason: Pain MILD(1-3)/Fever >100.5/RUIZ Acetaminophen (Acetaminophen 325 Mg Tab) 650 mg PO Q6H PRN PRN Reason: Pain, Mild (1-3) Last Admin: 09/30/20 22:12 Dose: 650 mg Documented by: Albuterol (Albuterol 2.5 Mg/3 Ml Nebu) 2.5 mg IH Q3HRT PRN PRN Reason: Shortness Of Breath Lipase/Protease/Amylase (Lipase 10,500/Protease 25,000/Amylase 43,750 (Units) Dr Davis) 1 each FEEDTUBE PRN PRN PRN Reason: For Clogged Feeding Tube Aspirin (Aspirin 81 Mg Tab Chew) 81 mg PO QDAY RAMESH Carvedilol (Carvedilol 25 Mg Tab) 25 mg PO Q12HR RAMESH Last Admin: 09/30/20 22:09 Dose: 25 mg Documented by: Famotidine (Famotidine 20 Mg Tab) 20 mg PO BID [facility] Last Admin: 09/30/20 22:09 Dose: 20 mg Documented by: Hydromorphone HCl (Hydromorphone 1 Mg/1 Ml Inj) 0.25 mg IV Q4H PRN PRN Reason: Pain, Moderate (4-6) Last Admin: 09/30/20 14:05 Dose: 0.25 mg Documented by: Hydrophilic Ointment (Lip Therapy Vaseline) 1 applic TP Q2HR PRN PRN Reason: Dry Lips Heparin Sodium/Sodium Chloride (Heparin/ 0.45% Nacl-25,000 Unit/500 Ml) 25,000 unit in 500 mls @ 20 mls/hr IV TITRATE RAMESH; Protocol Last Titration: 09/30/20 20:22 Dose: 900 units/hr, 18 mls/hr Documented by: Propofol (Diprivan 10 Mg/Ml) 1,000 mg in 100 mls @ 3.201 mls/hr IV TITR RAMESH; Protocol Last Titration: 09/28/20 19:01 Dose: 0 mcg/kg/min, 0 mls/hr Documented by: Labetalol HCl (Labetalol 20 Mg/4 Ml Inj) 10 mg IV Q4H PRN PRN Reason: Blood Pressure Last Admin: 09/30/20 14:02 Dose: 10 mg Documented by: Levetiracetam (Levetiracetam 500 Mg/5 Ml Oral Liqd) 750 mg PO BID [facility] Last Admin: 09/30/20 22:09 Dose: 750 mg Documented by: Lorazepam (Lorazepam 2 Mg/Ml Vial) 2 mg IV Q4H PRN PRN Reason: Seizures Losartan Potassium (Losartan 50 Mg Tab) 100 mg PO QDAY [facility] Last Admin: 09/30/20 16:30 Dose: Not Given Documented by: Metoclopramide HCl (Metoclopramide 10 Mg/2 Ml Inj) 10 mg IV Q6H PRN PRN Reason: Nausea And Vomiting Last Admin: 09/30/20 20:20 Dose: 10 mg Documented by: Multi-Ingred Cream/Lotion/Oil/Oint (Mineral Oil/Petrolatum, White Ophth Oint 3.5 Gm) 1 applic OU Q4HR PRN PRN Reason: Dry Eye(s) Last Admin: 09/28/20 22:02 Dose: 1 applic Documented by: Ondansetron HCl (Ondansetron 4 Mg/2 Ml Inj) 4 mg IV Q8H PRN PRN Reason: Nausea And Vomiting Last Admin: 09/30/20 10:01 Dose: 4 mg Documented by: Senna/Docusate Sodium (Sennosides/Docusate Sodium 8.6/50 Mg Tab) 1 tab FEEDTUBE BID [facility] Last Admin: 09/30/20 22:09 Dose: 1 tab Documented by: Simple Syrup (Simple Syrup 15 Ml) 15 ml FEEDTUBE PRN PRN PRN Reason: Hypoglycemia Simple Syrup (Simple Syrup 15 Ml) 30 ml FEEDTUBE PRN PRN PRN Reason: Hypoglycemia Last Admin: 09/29/20 06:13 Dose: 30 ml Documented by: Sodium Bicarbonate (Sodium Bicarbonate 325 Mg Tab) 325 mg FEEDTUBE PRN PRN PRN Reason: For Clogged Feeding Tube Sodium Chloride (Sodium Chloride 0.9% 10 Ml Flush Syringe) 10 ml IV BID [facility] Last Admin: 09/30/20 22:10 Dose: 10 ml Documented by: Sodium Chloride (Sodium Chloride 0.9% 10 Ml Flush Syringe) 10 ml IV PRN PRN PRN Reason: LINE FLUSH Physical Examination - Vital Signs Vital Signs: Vital Signs Pulse Ox 95 09/25/20 16:46 - Constitutional General appearance: comfortable - EENT EENT: Present: other (pupils dialted 4mm,eyes wondering no crneal reflex ,Weak gag ) - Respiratory Respiratory: Present: lungs clear, rhonchi - Cardiovascular Cardiovascular: Present: regular rate, normal S1, normal S2 Extremities: Present: no peripheral edema bilatateraly, no clubbing, cyanosis - Gastrointestinal Gastrointestinal: Present: normoactive bowel sounds - Integumentary Integumentary: Present: normal - Neurologic Sensorimotor examination: other (no movment to pain stimuli ,planter is equivical) Results - Laboratory Findings CBC and BMP: 10/01/20 05:56 10/01/20 05:56 Abnormal Lab Findings: Abnormal Labs 09/25/20 09/25/20 09/25/20 17:19 17:21 18:15 WBC 13.8 H Hgb 9.9 L Hct MCV 76 L MCH 23 L RDW 17.9 H Lymph % (Auto) [place] % (Auto) Lymph # (Auto) [place] # (Auto) Seg Neutrophils % 78.6 H Seg Neutrophils # 10.8 H APTT Heparin Anti-Xa Level ABG pH POC ABG pCO2 26.2 L POC ABG pO2 554.5 H ABG Hemoglobin 9.0 L ABG Oxyhemoglobin 99.0 H ABG Sodium 134.5 L ABG Potassium ABG Chloride ABG Glucose 220 H Carboxyhemoglobin Sodium Potassium Chloride BUN Creatinine Glucose POC Glucose Lactic Acid Calcium Phosphorus AST ALT Troponin T C-Reactive Protein Albumin HDL Cholesterol Arterial Blood Glucose 220 H Arterial Blood Ionized Calcium 4.2 L Urine WBC (Auto) 14.0 H 09/25/20 09/25/20 09/25/20 18:15 18:15 18:15 WBC Hgb Hct MCV MCH RDW Lymph % (Auto) [place] % (Auto) Lymph # (Auto) [place] # (Auto) Seg Neutrophils % Seg Neutrophils # APTT 21.1 L Heparin Anti-Xa Level ABG pH POC ABG pCO2 POC ABG pO2 ABG Hemoglobin ABG Oxyhemoglobin ABG Sodium ABG Potassium ABG Chloride ABG Glucose Carboxyhemoglobin Sodium Potassium Chloride BUN Creatinine Glucose 113 H POC Glucose Lactic Acid 2.60 H* Calcium Phosphorus AST 162 H ALT 131 H Troponin T 0.096 H C-Reactive Protein Albumin HDL Cholesterol Arterial Blood Glucose Arterial Blood Ionized Calcium Urine WBC (Auto) 09/25/20 09/25/20 09/26/20 23:13 23:13 03:15 WBC Hgb Hct MCV MCH RDW Lymph % (Auto) [place] % (Auto) Lymph # (Auto) [place] # (Auto) Seg Neutrophils % Seg Neutrophils # APTT Heparin Anti-Xa Level ABG pH 7.451 H POC ABG pCO2 27.1 L POC ABG pO2 ABG Hemoglobin 10.4 L ABG Oxyhemoglobin ABG Sodium 135.2 L ABG Potassium ABG Chloride 108.0 H ABG Glucose 137 H Carboxyhemoglobin Sodium Potassium Chloride BUN Creatinine Glucose POC Glucose Lactic Acid 2.90 H* Calcium Phosphorus AST ALT Troponin T 0.170 H* D C-Reactive Protein Albumin HDL Cholesterol 60 H Arterial Blood Glucose 137 H Arterial Blood Ionized Calcium 4.2 L Urine WBC (Auto) 09/26/20 09/26/20 09/26/20 05:09 05:09 05:09 WBC 15.8 H Hgb 10.0 L Hct MCV 77 L MCH 24 L RDW 17.8 H Lymph % (Auto) 7.2 L [place] % (Auto) Lymph # (Auto) 1.1 L [place] # (Auto) 1.0 H Seg Neutrophils % 86.1 H Seg Neutrophils # 13.6 H APTT Heparin Anti-Xa Level ABG pH POC ABG pCO2 POC ABG pO2 ABG Hemoglobin ABG Oxyhemoglobin ABG Sodium ABG Potassium ABG Chloride ABG Glucose Carboxyhemoglobin Sodium Potassium Chloride BUN Creatinine Glucose 114 H POC Glucose Lactic Acid 2.40 H* Calcium 8.1 L Phosphorus AST 112 H ALT 103 H Troponin T C-Reactive Protein Albumin 3.8 L HDL Cholesterol Arterial Blood Glucose Arterial Blood Ionized Calcium Urine WBC (Auto) 09/26/20 09/27/20 09/27/20 15:45 03:33 04:41 WBC Hgb 9.0 L Hct 28.6 L MCV MCH RDW Lymph % (Auto) [place] % (Auto) Lymph # (Auto) [place] # (Auto) Seg Neutrophils % Seg Neutrophils # APTT Heparin Anti-Xa Level ABG pH POC ABG pCO2 POC ABG pO2 141.6 H ABG Hemoglobin 9.3 L ABG Oxyhemoglobin ABG Sodium ABG Potassium 3.2 L ABG Chloride 108.0 H ABG Glucose 118 H Carboxyhemoglobin Sodium Potassium Chloride BUN Creatinine Glucose POC Glucose Lactic Acid Calcium Phosphorus 2.20 L AST ALT Troponin T C-Reactive Protein 4.30 H Albumin HDL Cholesterol Arterial Blood Glucose 118 H Arterial Blood Ionized Calcium 4.2 L Urine WBC (Auto) 09/27/20 09/27/20 09/28/20 04:41 22:53 04:00 WBC Hgb Hct MCV MCH RDW Lymph % (Auto) [place] % (Auto) Lymph # (Auto) [place] # (Auto) Seg Neutrophils % Seg Neutrophils # APTT Heparin Anti-Xa Level 0.75 H ABG pH 7.467 H POC ABG pCO2 POC ABG pO2 78.9 L ABG Hemoglobin 9.8 L ABG Oxyhemoglobin ABG Sodium ABG Potassium ABG Chloride ABG Glucose 141 H Carboxyhemoglobin Sodium Potassium Chloride BUN Creatinine Glucose POC Glucose 109 H Lactic Acid Calcium Phosphorus AST ALT Troponin T C-Reactive Protein Albumin HDL Cholesterol Arterial Blood Glucose 141 H Arterial Blood Ionized Calcium Urine WBC (Auto) 09/28/20 09/28/20 09/28/20 05:02 05:02 17:42 WBC 11.9 H Hgb 9.3 L Hct 29.5 L MCV 76 L MCH 24 L RDW 19.4 H Lymph % (Auto) [place] % (Auto) 11.1 H Lymph # (Auto) [place] # (Auto) 1.3 H Seg Neutrophils % 72.5 H Seg Neutrophils # 8.6 H APTT Heparin Anti-Xa Level ABG pH POC ABG pCO2 POC ABG pO2 ABG Hemoglobin ABG Oxyhemoglobin ABG Sodium ABG Potassium ABG Chloride ABG Glucose Carboxyhemoglobin Sodium Potassium 3.4 L Chloride BUN Creatinine Glucose 126 H POC Glucose 69 L Lactic Acid Calcium Phosphorus AST 129 H ALT 60 H Troponin T C-Reactive Protein Albumin 3.7 L HDL Cholesterol Arterial Blood Glucose Arterial Blood Ionized Calcium Urine WBC (Auto) 09/29/20 09/29/20 09/29/20 04:00 05:53 08:39 WBC Hgb 10.0 L Hct MCV MCH RDW Lymph % (Auto) [place] % (Auto) Lymph # (Auto) [place] # (Auto) Seg Neutrophils % Seg Neutrophils # APTT Heparin Anti-Xa Level ABG pH POC ABG pCO2 POC ABG pO2 81.1 L ABG Hemoglobin 11.0 L ABG Oxyhemoglobin ABG Sodium ABG Potassium ABG Chloride 110.0 H ABG Glucose 129 H Carboxyhemoglobin Sodium Potassium Chloride BUN Creatinine Glucose POC Glucose 58 L Lactic Acid Calcium Phosphorus AST ALT Troponin T C-Reactive Protein Albumin HDL Cholesterol Arterial Blood Glucose 129 H Arterial Blood Ionized Calcium Urine WBC (Auto) 09/30/20 09/30/20 09/30/20 00:10 10:45 15:05 WBC 12.5 H Hgb 9.9 L Hct MCV 78 L MCH 24 L RDW 21.0 H Lymph % (Auto) [place] % (Auto) 13.5 H Lymph # (Auto) [place] # (Auto) 1.7 H Seg Neutrophils % Seg Neutrophils # 8.1 H APTT Heparin Anti-Xa Level ABG pH 7.469 H POC ABG pCO2 POC ABG pO2 ABG Hemoglobin 10.4 L ABG Oxyhemoglobin ABG Sodium 146.2 H ABG Potassium ABG Chloride 109.0 H ABG Glucose 155 H Carboxyhemoglobin Sodium Potassium Chloride BUN Creatinine Glucose POC Glucose 131 H Lactic Acid Calcium Phosphorus AST ALT Troponin T C-Reactive Protein Albumin HDL Cholesterol Arterial Blood Glucose 155 H Arterial Blood Ionized Calcium Urine WBC (Auto) 09/30/20 09/30/20 10/01/20 15:05 17:37 00:29 WBC Hgb Hct MCV MCH RDW Lymph % (Auto) [place] % (Auto) Lymph # (Auto) [place] # (Auto) Seg Neutrophils % Seg Neutrophils # APTT Heparin Anti-Xa Level ABG pH POC ABG pCO2 POC ABG pO2 ABG Hemoglobin ABG Oxyhemoglobin ABG Sodium ABG Potassium ABG Chloride ABG Glucose Carboxyhemoglobin Sodium Potassium Chloride 109.1 H BUN 18 H Creatinine 1.4 H Glucose 122 H POC Glucose 127 H 119 H Lactic Acid Calcium Phosphorus 2.00 L AST ALT Troponin T C-Reactive Protein Albumin HDL Cholesterol Arterial Blood Glucose Arterial Blood Ionized Calcium Urine WBC (Auto) 10/01/20 10/01/20 10/01/20 04:12 05:56 05:56 WBC 14.2 H Hgb 9.7 L Hct MCV 78 L MCH 23 L RDW 21.1 H Lymph % (Auto) [place] % (Auto) Lymph # (Auto) [place] # (Auto) Seg Neutrophils % Seg Neutrophils # APTT Heparin Anti-Xa Level ABG pH POC ABG pCO2 POC ABG pO2 73.0 L ABG Hemoglobin 10.0 L ABG Oxyhemoglobin 93.7 L ABG Sodium 146.4 H ABG Potassium ABG Chloride 110.0 H ABG Glucose 124 H Carboxyhemoglobin 0.3 L Sodium 147 H Potassium Chloride 109.6 H BUN Creatinine Glucose 109 H POC Glucose Lactic Acid Calcium Phosphorus AST ALT Troponin T C-Reactive Protein Albumin HDL Cholesterol Arterial Blood Glucose 124 H Arterial Blood Ionized Calcium Urine WBC (Auto) Assessment and Plan Assessment and Plan # Cardiac arrest -Patient treated" with ACLS protocol with return of perfusing cardiac rhythm, -cardiology team consulted, -echocardiogram with EF#20-25% -hx of Dialted cardiomyopathy -On ASA -troponin is negative # Acute hypoxemic respiratory failure -Patient intubated and on ventilatory support: - Critical care team consulted, wean vent as tolerated, -daily spontaneous breathing trial, sedation holiday, daily ABG. # Anoxic brain injury -Ct brain is unremarkable -EEG is remarkable for diffuse slowing low voltage -MRI brain to order -keep of sedation -Over all prognosis is quarded to poor #Sepsis -Sepsis protocol: Chest x-ray, CBC, BMP, urinalysis, IV antibiotic therapy, IV fluid resuscitation therapy, maintain mean arterial pressure greater than or equal to 65, # NSTEMI (non-ST elevated myocardial infarction) -Cardiology team consulted, therapeutic anticoagulation as per cardiology team, echocardiogram ordered and is pending at time of admission. # Pneumonia -Pneumonia protocol: IV antibiotic therapy, chest x-ray, CBC, CMP, blood culture, # Acidosis -Treat sepsis, IV fluid resuscitation therapy, BMP, repeat BMP in a.m. Serial lactic acid level. # Seizure disorder -Antiepilepsy therapy with Keppra, seizure precautions. -EEG done # DVT prophylaxis -SCD to bilateral lower extremities while in bed, therapeutic anticoagulation The high probability of a clinically significant, sudden or life threatening deterioration of the [cardiac, pulmonary, renal, neuro] system(s) required my full and direct attention, intervention and personal management. The aggregate critical care time was [80] minutes. This time is in addition to time spent performing reported procedures but includes the following: [x] Data Review and interpretation [x] Patient assessment and monitoring of vital signs [x] Documentation [x] Medication orders and management
[2020-10-01] MEDS: SENNOSIDES/DOCUSATE SODIUM 8.6/50 MG TAB FEEDTUBE SCH ×2 (10:10→21:30)
[2020-10-01] MEDS: levETIRAcetam 500 MG/5 ML ORAL LIQD PO SCH ×2 (10:11→21:31)
[2020-10-01] MEDS: LOSARTAN 50 MG TAB PO SCH (10:11)
[2020-10-01] MEDS: ASPIRIN 81 MG TAB CHEW PO SCH (10:12)
[2020-10-01] MEDS: carvediloL 25 MG TAB PO SCH ×2 (10:12→21:31)
[2020-10-01] MEDS: FAMOTIDINE 20 MG TAB PO SCH ×2 (10:12→21:31)
--- NOTE | 2020-10-01 12:26 | Progress Note ---
Assessment and Plan S/p cardiac arrest with ROSC * Patient is intubated and unresponsive, currently off sedation. * Seizure activity was noted after ROSC. * MRI brain is pending. Anoxic injury is suspected. Neurology is following NSTEMI * Twelve-lead shows sinus rhythm with nonspecific T wave abnormalities in anterior leads. No acute ischemic changes. Troponin elevated at time of admission, currently negative x1. Continue to trend CE's. Heart failure reduced ejection fraction in setting of new onset cardiomyopathy * Previous echocardiogram reviewed (10/23/2019): LVEF is 50 to 55%. LV chamber and wall dimensions are normal. Normal LV systolic function. Normal left atrial pressure and diastolic function. RV SF is normal. Mild MR. * Echocardiogram reviewed (09/25/2020): LVEF is 20 to 25%. Left ventricle is mildly dilated. LV SF is severely decreased. Severe global hypokinesis of the left ventricle. RV SF is normal. RVSP is 26 mmHg. * Continue goal-directed therapy with cardioprotective regimen: bASA, Coreg 25 mg BID, losartan 100 mg daily. Allow some degree of physiologic tachycardia in setting of severe cardiomyopathy. * Considering current acuity and comorbidities will plan for conservative cardiac management. If/when patient is stabilized will need ischemic eval and outpatient cardiac rehab post discharge. DVT Prophylaxis * Heparin gtt, SCDs in place. We will follow This patient was seen in conjunction with Dr. Amrit Cherry who agrees with this assessment and plan of care - Patient Problems (1) Dilated cardiomyopathy Current Visit: Yes Status: Acute (2) Cardiac arrest Current Visit: Yes Status: Acute (3) DVT prophylaxis Current Visit: Yes Status: Acute (4) Seizure Current Visit: Yes Status: Acute (5) NSTEMI (non-ST elevated myocardial infarction) Current Visit: Yes Status: Acute Subjective Date of service: 10/01/20 Principal diagnosis: Cardiac arrest; Ac. respiratory failure; Anoxic encephal opathy; PNA; NSTEMI Interval history: Patient currently resting in bed intubated, unresponsive not under sedation. Telemetry reviewed: Sinus rhythm 95. Episode of 3 beat PVC triplets noted Objective Last Vital Signs Temp 101.2 F H 10/01/20 12:00 Pulse 93 H 10/01/20 11:00 Resp 23 10/01/20 11:00 BP 132/60 10/01/20 11:00 Pulse Ox 98 10/01/20 11:00 - Physical Examination General: Other (intubated) Neck: Positive: neck supple, trachea midline Cardiac: Positive: Reg Rate and Rhythm, S1/S2 Lungs: Positive: Ventilated Respirations Neuro: Positive: Other (Patient intubated ) Abdomen: Positive: Soft Skin: Negative: Rash, Wound Extremities: Present: lower extr. pulses, edema - Labs and Meds CBC 09/30/20 10/01/20 Range/Units 15:05 05:56 WBC 12.5 H 14.2 H (4.5-11.0) K/mm3 RBC 4.10 4.13 (3.65-5.03) M/mm3 Hgb 9.9 L 9.7 L (10.1-14.3) gm/dl Hct 31.9 32.1 (30.3-42.9) % Plt Count 370 354 (140-440) K/mm3 Lymph # (Auto) 2.5 (1.2-5.4) K/mm3 [place] # (Auto) 1.7 H (0.0-0.8) K/mm3 Eos # (Auto) 0.0 (0.0-0.4) K/mm3 Baso # (Auto) 0.1 (0.0-0.1) K/mm3 Comprehensive Metabolic Panel 09/30/20 10/01/20 Range/Units 15:05 05:56 Sodium 145 147 H (137-145) mmol/L Potassium 3.8 4.6 D (3.6-5.0) mmol/L Chloride 109.1 H 109.6 H (98-107) mmol/L Carbon Dioxide 26 23 (22-30) mmol/L BUN 18 H 15 (7-17) mg/dL Creatinine 1.4 H 1.1 (0.6-1.2) mg/dL Glucose 122 H 109 H (65-100) mg/dL Calcium 9.4 9.1 (8.4-10.2) mg/dL - Imaging and Cardiology Echo: report reviewed - Telemetry EKG Rhythm: Sinus Rhythm - EKG Sinus rhythms and dysrhythmias: sinus tachycardia - Allied health notes Allied health notes reviewed: nursing
[2020-10-01] MEDS: HEPARIN/ 0.45% NACL DRIP 25,000 UNIT/500 ML BAG IV SCH (15:54)
[2020-10-01] MEDS: ACETAMINOPHEN 325 MG TAB PO PRN (15:54)
--- NOTE | 2020-10-01 15:54 | Progress Note ---
Assessment and Plan Cardiac arrest with return of spontaneous circulation. Acute respiratory failure, on mechanical ventilatory support. Acute toxic metabolic encephalopathy. Possible anoxic encephalopathy. Obesity. History of obesity hypoventilation syndrome. Leukocytosis. Likely aspiration pneumonia, bilateral. Anemia that is microcytic. Lactic acidosis. Elevated serum transaminases. Non-ST elevation myocardial infarction (Seems STAN is interested in a trach & PEG but awaits neurological evaluation report) - add scopolamine patch for secretion control - advance ETT 1-2 cm - follow MRI - treat fever with tylenol (? Cerebral & S/P CAP AB's) - care plan discussed with her cousin at bedside - continue neurology evaluation - keep set rate at 10/min - follow bilateral lower extremity dopplers re: DVT - continue IV Heparin drip for now - continue care as below otherwise; - continue to wean supplemental oxygen for target O2 sat's > 90% acutely - VAP bundle addressed - continue lung protective strategies - continue bronchodilators with pulmonary hygiene per RT - wean per pulmonary driven protocols otherwise - continue Daily SAT and SBT assessment as tolerated - continue accuchecks with glycemic control per SSI (While critically ill target blood glucose of 140-180 mg/dL; avoid hypoglycemia) - sedation prn for target RASS 0 to -1 - avoid nephrotoxins, renally dose all medications - continue to avoid benzodiazepine's, reduce the possibility of delirium - completed AB's per ID rec's - prn analgesia per CPOT score - Maintenance of sleep-wake cycle, avoid delirium - continue enteral nutritional support at goal rate as tolerated - G.I. & VTE prophylaxis - PT/OT/ROM exercises - continue mobility protocols for pressure ulcer prophylaxis - Monitor hemodynamics closely - continue other care per attending / other consultants - discharge planning ongoing concurrently COVID SPECIFIC INTERVENTIONS - COVID tests result was negative .... Re-evaluate in am & prn CONDITION: CRITICAL PROGNOSIS: GUARDED CODE STATUS: FULL CODE The high probability of a clinically significant, sudden or life-threatening deterioration of the [respiratory, cardiovascular & neurologic] system(s) required my full and direct attention, intervention and personal management. The aggregate critical care time was [40] minutes without overlap. Time includes spent on; [x] Data Review and interpretation [x] Patient assessment and monitoring of vital signs [x] Documentation [x] Medication orders and management Subjective Date of service: 10/01/20 Principal diagnosis: Cardiac arrest; Ac. respiratory failure; Anoxic encephalopathy; PNA; NSTEMI Interval history: Patient is seen today for: Cardiac arrest with ROSC; Acute respiratory failure; Anoxic encephalopathy; Obesity; OHS; Aspiration pneumonia; NSTEMI Seen and examined at bedside; 24hour events reviewed; nursing and respiratory care staff consulted; no adverse overnight events reported to me; resting in bed; remains on MVS; AMS is persistent; MRI ordered and pending; on SBT now but AMS remains rate limiting step to safe extubation acutely; secretions large today Objective Vital Signs - 12hr 10/01/20 10/01/20 10/01/20 04:00 04:30 05:00 Temperature 100.8 F H Pulse Rate 67 72 76 Pulse Rate [ 66 From Monitor] Respiratory 13 12 12 Rate Blood Pressure 134/54 143/62 143/62 O2 Sat by Pulse 100 100 100 Oximetry 10/01/20 10/01/20 10/01/20 05:30 06:00 06:04 Temperature Pulse Rate 80 91 H 103 H Pulse Rate [ From Monitor] Respiratory 13 19 Rate Blood Pressure 156/54 127/57 111/52 O2 Sat by Pulse 98 100 100 Oximetry 10/01/20 10/01/20 10/01/20 06:30 07:00 07:30 Temperature Pulse Rate 102 H 109 H 111 H Pulse Rate [ From Monitor] Respiratory 14 15 15 Rate Blood Pressure 132/68 125/57 130/64 O2 Sat by Pulse 99 98 98 Oximetry 10/01/20 10/01/20 10/01/20 08:00 08:30 09:00 Temperature 102.0 F H Pulse Rate 107 H 108 H 106 H Pulse Rate [ 111 H From Monitor] Respiratory 15 16 14 Rate Blood Pressure 122/69 133/67 119/68 O2 Sat by Pulse 99 100 100 Oximetry 10/01/20 10/01/20 10/01/20 09:14 09:30 10:00 Temperature Pulse Rate 105 H 95 H 97 H Pulse Rate [ From Monitor] Respiratory 23 23 Rate Blood Pressure 119/68 116/65 133/63 O2 Sat by Pulse 99 100 100 Oximetry 10/01/20 10/01/20 10/01/20 10:11 10:12 10:30 Temperature Pulse Rate 111 H 110 H 100 H Pulse Rate [ From Monitor] Respiratory 25 H Rate Blood Pressure 133/63 133/63 132/60 O2 Sat by Pulse 97 Oximetry 10/01/20 10/01/20 10/01/20 11:00 11:30 12:00 Temperature 101.2 F H Pulse Rate 93 H 100 H 90 Pulse Rate [ From Monitor] Respiratory 23 24 23 Rate Blood Pressure 132/60 138/54 119/47 O2 Sat by Pulse 98 100 100 Oximetry 10/01/20 10/01/20 10/01/20 12:30 13:00 13:25 Temperature Pulse Rate 86 84 95 H Pulse Rate [ From Monitor] Respiratory 22 20 Rate Blood Pressure 119/47 108/50 123/42 O2 Sat by Pulse 98 98 99 Oximetry 10/01/20 10/01/20 13:30 14:00 Temperature Pulse Rate 87 88 Pulse Rate [ From Monitor] Respiratory 22 24 Rate Blood Pressure 115/46 123/44 O2 Sat by Pulse 99 98 Oximetry Constitutional: no acute distress, other (middle aged obese female with mildly increased respiratory effort at rest on MVS) Eyes: non-icteric ENT: oropharynx moist, other (ETT 23 cm JAH) Neck: supple, no lymphadenopathy, no JVD Effort: mildly labored Ascultation: Bilateral: rhonchi Percussion: Bilateral: not dull Cardiovascular: regular rate and rhythm Gastrointestinal: normoactive bowel sounds, soft, non-tender, non-distended Integumentary: normal Extremities: no cyanosis, no edema, pulses normal, no ischemia or petechiae Neurologic: pupils equal and round, unable to assess Psychiatric: other (unable to assess re: AMS) CBC and BMP: 10/01/20 05:56 10/01/20 05:56 ABG, PT/INR, D-dimer: ABG ABG pH 7.424 (7.320-7.450) 10/01/20 04:12 POC ABG pCO2 41.6 mmHg (32.0-48.0) 10/01/20 04:12 POC ABG pO2 73.0 mmHg (83-108) L 10/01/20 04:12 POC ABG HCO3 26.6 10/01/20 04:12 ABG O2 Saturation 94.3 (0-100) 10/01/20 04:12 PT/INR, D-dimer PT 13.7 Sec. (12.2-14.9) 09/25/20 18:15 INR 1.00 (0.87-1.13) 09/25/20 18:15 Abnormal lab findings: Abnormal Labs 09/25/20 09/25/20 09/25/20 17:19 17:21 18:15 WBC 13.8 H Hgb 9.9 L Hct MCV 76 L MCH 23 L RDW 17.9 H Lymph % (Auto) Meagher % (Auto) Lymph # (Auto) Meagher # (Auto) Seg Neutrophils % 78.6 H Seg Neutrophils # 10.8 H APTT Heparin Anti-Xa Level ABG pH POC ABG pCO2 26.2 L POC ABG pO2 554.5 H ABG Hemoglobin 9.0 L ABG Oxyhemoglobin 99.0 H ABG Sodium 134.5 L ABG Potassium ABG Chloride ABG Glucose 220 H Carboxyhemoglobin Sodium Potassium Chloride BUN Creatinine Glucose POC Glucose Lactic Acid Calcium Phosphorus AST ALT Troponin T C-Reactive Protein Albumin HDL Cholesterol Arterial Blood Glucose 220 H Arterial Blood Ionized Calcium 4.2 L Urine WBC (Auto) 14.0 H 09/25/20 09/25/20 09/25/20 18:15 18:15 18:15 WBC Hgb Hct MCV MCH RDW Lymph % (Auto) Meagher % (Auto) Lymph # (Auto) Meagher # (Auto) Seg Neutrophils % Seg Neutrophils # APTT 21.1 L Heparin Anti-Xa Level ABG pH POC ABG pCO2 POC ABG pO2 ABG Hemoglobin ABG Oxyhemoglobin ABG Sodium ABG Potassium ABG Chloride ABG Glucose Carboxyhemoglobin Sodium Potassium Chloride BUN Creatinine Glucose 113 H POC Glucose Lactic Acid 2.60 H* Calcium Phosphorus AST 162 H ALT 131 H Troponin T 0.096 H C-Reactive Protein Albumin HDL Cholesterol Arterial Blood Glucose Arterial Blood Ionized Calcium Urine WBC (Auto) 09/25/20 09/25/20 09/26/20 23:13 23:13 03:15 WBC Hgb Hct MCV MCH RDW Lymph % (Auto) Meagher % (Auto) Lymph # (Auto) Meagher # (Auto) Seg Neutrophils % Seg Neutrophils # APTT Heparin Anti-Xa Level ABG pH 7.451 H POC ABG pCO2 27.1 L POC ABG pO2 ABG Hemoglobin 10.4 L ABG Oxyhemoglobin ABG Sodium 135.2 L ABG Potassium ABG Chloride 108.0 H ABG Glucose 137 H Carboxyhemoglobin Sodium Potassium Chloride BUN Creatinine Glucose POC Glucose Lactic Acid 2.90 H* Calcium Phosphorus AST ALT Troponin T 0.170 H* D C-Reactive Protein Albumin HDL Cholesterol 60 H Arterial Blood Glucose 137 H Arterial Blood Ionized Calcium 4.2 L Urine WBC (Auto) 09/26/20 09/26/20 09/26/20 05:09 05:09 05:09 WBC 15.8 H Hgb 10.0 L Hct MCV 77 L MCH 24 L RDW 17.8 H Lymph % (Auto) 7.2 L Meagher % (Auto) Lymph # (Auto) 1.1 L Meagher # (Auto) 1.0 H Seg Neutrophils % 86.1 H Seg Neutrophils # 13.6 H APTT Heparin Anti-Xa Level ABG pH POC ABG pCO2 POC ABG pO2 ABG Hemoglobin ABG Oxyhemoglobin ABG Sodium ABG Potassium ABG Chloride ABG Glucose Carboxyhemoglobin Sodium Potassium Chloride BUN Creatinine Glucose 114 H POC Glucose Lactic Acid 2.40 H* Calcium 8.1 L Phosphorus AST 112 H ALT 103 H Troponin T C-Reactive Protein Albumin 3.8 L HDL Cholesterol Arterial Blood Glucose Arterial Blood Ionized Calcium Urine WBC (Auto) 09/26/20 09/27/20 09/27/20 15:45 03:33 04:41 WBC Hgb 9.0 L Hct 28.6 L MCV MCH RDW Lymph % (Auto) Meagher % (Auto) Lymph # (Auto) Meagher # (Auto) Seg Neutrophils % Seg Neutrophils # APTT Heparin Anti-Xa Level ABG pH POC ABG pCO2 POC ABG pO2 141.6 H ABG Hemoglobin 9.3 L ABG Oxyhemoglobin ABG Sodium ABG Potassium 3.2 L ABG Chloride 108.0 H ABG Glucose 118 H Carboxyhemoglobin Sodium Potassium Chloride BUN Creatinine Glucose POC Glucose Lactic Acid Calcium Phosphorus 2.20 L AST ALT Troponin T C-Reactive Protein 4.30 H Albumin HDL Cholesterol Arterial Blood Glucose 118 H Arterial Blood Ionized Calcium 4.2 L Urine WBC (Auto) 09/27/20 09/27/20 09/28/20 04:41 22:53 04:00 WBC Hgb Hct MCV MCH RDW Lymph % (Auto) Meagher % (Auto) Lymph # (Auto) Meagher # (Auto) Seg Neutrophils % Seg Neutrophils # APTT Heparin Anti-Xa Level 0.75 H ABG pH 7.467 H POC ABG pCO2 POC ABG pO2 78.9 L ABG Hemoglobin 9.8 L ABG Oxyhemoglobin ABG Sodium ABG Potassium ABG Chloride ABG Glucose 141 H Carboxyhemoglobin Sodium Potassium Chloride BUN Creatinine Glucose POC Glucose 109 H Lactic Acid Calcium Phosphorus AST ALT Troponin T C-Reactive Protein Albumin HDL Cholesterol Arterial Blood Glucose 141 H Arterial Blood Ionized Calcium Urine WBC (Auto) 09/28/20 09/28/20 09/28/20 05:02 05:02 17:42 WBC 11.9 H Hgb 9.3 L Hct 29.5 L MCV 76 L MCH 24 L RDW 19.4 H Lymph % (Auto) Meagher % (Auto) 11.1 H Lymph # (Auto) Meagher # (Auto) 1.3 H Seg Neutrophils % 72.5 H Seg Neutrophils # 8.6 H APTT Heparin Anti-Xa Level ABG pH POC ABG pCO2 POC ABG pO2 ABG Hemoglobin ABG Oxyhemoglobin ABG Sodium ABG Potassium ABG Chloride ABG Glucose Carboxyhemoglobin Sodium Potassium 3.4 L Chloride BUN Creatinine Glucose 126 H POC Glucose 69 L Lactic Acid Calcium Phosphorus AST 129 H ALT 60 H Troponin T C-Reactive Protein Albumin 3.7 L HDL Cholesterol Arterial Blood Glucose Arterial Blood Ionized Calcium Urine WBC (Auto) 09/29/20 09/29/20 09/29/20 04:00 05:53 08:39 WBC Hgb 10.0 L Hct MCV MCH RDW Lymph % (Auto) Meagher % (Auto) Lymph # (Auto) Meagher # (Auto) Seg Neutrophils % Seg Neutrophils # APTT Heparin Anti-Xa Level ABG pH POC ABG pCO2 POC ABG pO2 81.1 L ABG Hemoglobin 11.0 L ABG Oxyhemoglobin ABG Sodium ABG Potassium ABG Chloride 110.0 H ABG Glucose 129 H Carboxyhemoglobin Sodium Potassium Chloride BUN Creatinine Glucose POC Glucose 58 L Lactic Acid Calcium Phosphorus AST ALT Troponin T C-Reactive Protein Albumin HDL Cholesterol Arterial Blood Glucose 129 H Arterial Blood Ionized Calcium Urine WBC (Auto) 09/30/20 09/30/20 09/30/20 00:10 10:45 15:05 WBC 12.5 H Hgb 9.9 L Hct MCV 78 L MCH 24 L RDW 21.0 H Lymph % (Auto) Meagher % (Auto) 13.5 H Lymph # (Auto) Meagher # (Auto) 1.7 H Seg Neutrophils % Seg Neutrophils # 8.1 H APTT Heparin Anti-Xa Level ABG pH 7.469 H POC ABG pCO2 POC ABG pO2 ABG Hemoglobin 10.4 L ABG Oxyhemoglobin ABG Sodium 146.2 H ABG Potassium ABG Chloride 109.0 H ABG Glucose 155 H Carboxyhemoglobin Sodium Potassium Chloride BUN Creatinine Glucose POC Glucose 131 H Lactic Acid Calcium Phosphorus AST ALT Troponin T C-Reactive Protein Albumin HDL Cholesterol Arterial Blood Glucose 155 H Arterial Blood Ionized Calcium Urine WBC (Auto) 09/30/20 09/30/20 10/01/20 15:05 17:37 00:29 WBC Hgb Hct MCV MCH RDW Lymph % (Auto) Meagher % (Auto) Lymph # (Auto) Meagher # (Auto) Seg Neutrophils % Seg Neutrophils # APTT Heparin Anti-Xa Level ABG pH POC ABG pCO2 POC ABG pO2 ABG Hemoglobin ABG Oxyhemoglobin ABG Sodium ABG Potassium ABG Chloride ABG Glucose Carboxyhemoglobin Sodium Potassium Chloride 109.1 H BUN 18 H Creatinine 1.4 H Glucose 122 H POC Glucose 127 H 119 H Lactic Acid Calcium Phosphorus 2.00 L AST ALT Troponin T C-Reactive Protein Albumin HDL Cholesterol Arterial Blood Glucose Arterial Blood Ionized Calcium Urine WBC (Auto) 10/01/20 10/01/20 10/01/20 04:12 05:56 05:56 WBC 14.2 H Hgb 9.7 L Hct MCV 78 L MCH 23 L RDW 21.1 H Lymph % (Auto) Meagher % (Auto) Lymph # (Auto) Meagher # (Auto) Seg Neutrophils % Seg Neutrophils # APTT Heparin Anti-Xa Level ABG pH POC ABG pCO2 POC ABG pO2 73.0 L ABG Hemoglobin 10.0 L ABG Oxyhemoglobin 93.7 L ABG Sodium 146.4 H ABG Potassium ABG Chloride 110.0 H ABG Glucose 124 H Carboxyhemoglobin 0.3 L Sodium 147 H Potassium Chloride 109.6 H BUN Creatinine Glucose 109 H POC Glucose Lactic Acid Calcium Phosphorus AST ALT Troponin T C-Reactive Protein Albumin HDL Cholesterol Arterial Blood Glucose 124 H Arterial Blood Ionized Calcium Urine WBC (Auto) Chest x-ray: image reviewed (ETT still riding a little high) Allied health notes reviewed: nursing
--- NOTE | 2020-10-01 17:29 | XRay Report ---
ABDOMEN ONE VIEW INDICATION / CLINICAL INFORMATION: ngt placement. COMPARISON: None available. FINDINGS: A nasogastric tube is present with the tip superimposed over the expected position of the gastric ant rum Signer Name: Rick Garces MD FACR Signed: 10/01/2020 5:25 PM Workstation Name: [id number]
--- NOTE | 2020-10-01 19:56 | Progress Note ---
<TABITHACHANTELLLaci - Last Filed: 10/01/20 19:53> Assessment and Plan Assessment and plan: This is a 45-year-old female with OHS and GERD who presented s/p cardiac arrest S/p cardiac arrest Anoxic brain injury Acute hypoxic respiratory failure NSTEMI Sepsis Leukocytosis Lactic acidosis Pneumonia Seizure disorder Obesity GERD -CCM, neurology, cardiology, PT consulted, patient recommendations -09/25 CTA chest shows no CT evidence of pulmonary embolism, consolidative changes within both dependent lungs may be due to aspiration -09/25 CT head shows no evidence of acute abnormality, no evidence of acute ischemic injury, hemorrhage, mass affect -09/25 echocardiogram shows left ventricular mildly dilated, left ventricle syst olic function severely decreased, left ventricular ejection fraction is 70 decreased, severe global hypokinesis of the left ventricle, LVEF 20 to 25% -09/26 CXR shows slight interval worsening of bilateral parenchymal disease also be secondary to pneumonia possibly aspiration pneumonia -09/27 CXR shows much improved appearance of the chest with improving bilateral pulmonary opacities -09/27 EEG shows significant abnormal record with low voltage 2-400 noted throughout this recording, admixed with low voltage fast beta activity noted frontally, findings suggestive of possible cortical dysfunction and/or encephalopathy and/or post cardiac arrest, possibility of post ictal stage cannot be totally excluded -10/01 MRI brain pending -10/01 BLE Doppler ultrasound pending -TF, ssi, accucheck q6 -Heparin drip -Aspirin, BB, ANNIE -Keppra -Seizure/aspiration precautions -Ativan as needed -As needed labetalol -Trend CBC, BMP DVT/GI prophylaxis: Pepcid, systemic anticoagulation with heparin drip, SCDs to bilateral directions while in bed Disposition: ICU, awaiting family decision about goals of care The high probability of a clinically significant, sudden or life threatening deterioration of the [cardiac, pulmonary, renal, neuro] system(s) required my full and direct attention, intervention and personal management. The aggregate critical care time was [35] minutes. This time is in addition to time spent performing reported procedures but includes the following: [x] Data Review and interpretation [x] Patient assessment and monitoring of vital signs [x] Documentation [x] Medication orders and management History Interval history: 45-year-old female with obesity hypoventilation syndrome and GERD who presented to the emergency department on 6/14 s/p cardiac arrest via EMS. Per EMS staff they were notified for shortness of breath and upon arrival patient was found to be in distress and subsequently went into cardiac arrest and she was treated in accordance to ACLS protocol and intubated in the field and transported to [facility]. Evaluation in the emergency department upon arrival to the emergency department patient was found to have persistent hypoxic respiratory failure and was maintained on ventilator support. Work-up revealed sepsis, pneumonia, seizure disorder, metabolic acidosis as well as NSTEMI. Cardiology, neurology, [facility] were consulted. 09/26/2020: Patient remains unresponsive, intubated on ventilatory support. 09/27/2020; patient remains unresponsive, intubated on ventilatory support Follow neurology evaluation and recommendations Very poor prognosis, I spoke with patient's aunt Ms. Debora Minor 09/26/2020 About patient's condition , tests and reports and very poor prognosis. She verbalized understanding. I discussed the CODE STATUS Full code at this point 09/28/2020 S/p cardiac arrest outside the facility Intubated and unresponsive We will discuss CODE STATUS again 09/29/2020 S/p cardiac arrest Intubated and unresponsive Will request ethics consult and family meeting again regarding the prognosis and outcome 09/30/20 Discussed with family They will decide about DNR--amenable 10/01: Patient has persistent leukocytosis and hyperchloremia. Patient now has hypernatremia and renal function has improved to CR/BUN 1.1/15 from 1.4/18. Patient has hypophosphatemia which was repleted yesterday and we will obtain a.m. labs. Patient has MRI brain pending. Family updated by neurology over the phone and [employer] at bedside. Patient niece was at bedside today and she will defer goals of care decision after MRI results. EEG findings were explained. According to her the patient was in found to be unresponsinve by family and was given bystander CPR before arrival of EMS. Hospitalist Physical - Constitutional Vitals: Temp Pulse Resp BP Pulse Ox 103.1 F H 96 H 25 H 129/57 99 10/01/20 16:00 10/01/20 19:30 10/01/20 19:30 10/01/20 19:30 10/01/20 19:30 General appearance: Present: no acute distress, well-nourished, other (not responsive ) - EENT Eyes: Absent: PERRL (pupils fixed, dilated) - Neck Neck: Present: normal ROM - Respiratory Respiratory effort: normal Respiratory: bilateral: diminished - Cardiovascular Rhythm: regular Heart Sounds: Present: S1 & S2. Absent: systolic murmur, diastolic murmur - Extremities Extremities: no ischemia, pulses intact, pulses symmetrical, normal temperature, normal color Peripheral Pulses: within normal limits - Abdominal General gastrointestinal: soft, non-tender, non-distended, normal bowel sounds - Integumentary Integumentary: Present: warm, dry - Psychiatric Psychiatric: other (not interactive) - Neurologic Neurologic: no CNII-XII intact, no moves all extremities - Allied Health Allied health notes reviewed: nursing, RT, social work HEART Score - HEART Score Troponin: Troponin T < 0.010 ng/mL (0.00-0.029) 10/01/20 05:56 Results - Labs CBC & Chem 7: 10/01/20 05:56 10/01/20 05:56 Labs: Laboratory Last Values WBC 14.2 K/mm3 (4.5-11.0) H 10/01/20 05:56 RBC 4.13 M/mm3 (3.65-5.03) 10/01/20 05:56 Hgb 9.7 gm/dl (10.1-14.3) L 10/01/20 05:56 Hct 32.1 % (30.3-42.9) 10/01/20 05:56 MCV 78 fl (79-97) L 10/01/20 05:56 MCH 23 pg (28-32) L 10/01/20 05:56 MCHC 30 % (30-34) 10/01/20 05:56 RDW 21.1 % (13.2-15.2) H 10/01/20 05:56 Plt Count 354 K/mm3 (140-440) 10/01/20 05:56 Lymph % (Auto) 20.1 % (13.4-35.0) 09/30/20 15:05 [place]in % (Auto) 13.5 % (0.0-7.3) H 09/30/20 15:05 Eos % (Auto) 0.4 % (0.0-4.3) 09/30/20 15:05 Baso % (Auto) 1.0 % (0.0-1.8) 09/30/20 15:05 Lymph # (Auto) 2.5 K/mm3 (1.2-5.4) 09/30/20 15:05 [place] # (Auto) 1.7 K/mm3 (0.0-0.8) H 09/30/20 15:05 Eos # (Auto) 0.0 K/mm3 (0.0-0.4) 09/30/20 15:05 Baso # (Auto) 0.1 K/mm3 (0.0-0.1) 09/30/20 15:05 Seg Neutrophils % 65.0 % (40.0-70.0) 09/30/20 15:05 Seg Neutrophils # 8.1 K/mm3 (1.8-7.7) H 09/30/20 15:05 PT 13.7 Sec. (12.2-14.9) 09/25/20 18:15 INR 1.00 (0.87-1.13) 09/25/20 18:15 APTT 21.1 Sec. (24.2-36.6) L 09/25/20 18:15 Heparin Anti-Xa Level 0.40 U.I./ml (0.3-0.7) 09/30/20 19:16 ABG pH 7.424 (7.320-7.450) 10/01/20 04:12 POC ABG pCO2 41.6 mmHg (32.0-48.0) 10/01/20 04:12 POC ABG pO2 73.0 mmHg (83-108) L 10/01/20 04:12 POC ABG HCO3 26.6 10/01/20 04:12 ABG O2 Saturation 94.3 (0-100) 10/01/20 04:12 POC ABG Base Excess 2.0 10/01/20 04:12 ABG Hemoglobin 10.0 (12.0-17.5) L 10/01/20 04:12 ABG Oxyhemoglobin 93.7 (94-98) L 10/01/20 04:12 ABG Methemoglobin 0.3 (0.0-1.5) 10/01/20 04:12 ABG Sodium 146.4 mmol/L (136.0-145.0) H 10/01/20 04:12 ABG Potassium 3.8 mmol/L (3.40-4.50) 10/01/20 04:12 ABG Chloride 110.0 mmol/L (98-107) H 10/01/20 04:12 ABG Glucose 124 mg/dL (65-95) H 10/01/20 04:12 Carboxyhemoglobin 0.3 (0.5-1.5) L 10/01/20 04:12 FiO2 % 25.0 10/01/20 04:12 Sodium 147 mmol/L (137-145) H 10/01/20 05:56 Potassium 4.6 mmol/L (3.6-5.0) D 10/01/20 05:56 Chloride 109.6 mmol/L (98-107) H 10/01/20 05:56 Carbon Dioxide 23 mmol/L (22-30) 10/01/20 05:56 Anion Gap 19 mmol/L 10/01/20 05:56 BUN 15 mg/dL (7-17) 10/01/20 05:56 Creatinine 1.1 mg/dL (0.6-1.2) 10/01/20 05:56 Estimated GFR > 60 ml/min 10/01/20 05:56 BUN/Creatinine Ratio 14 % 10/01/20 05:56 Glucose 109 mg/dL (65-100) H 10/01/20 05:56 POC Glucose 126 mg/dL (70-105) H 10/01/20 19:21 Lactic Acid 1.00 mmol/L (0.7-2.0) 09/27/20 04:41 Calcium 9.1 mg/dL (8.4-10.2) 10/01/20 05:56 Phosphorus 2.00 mg/dL (2.5-4.5) L 09/30/20 15:05 Magnesium 1.80 mg/dL (1.7-2.3) 09/30/20 15:05 Total Bilirubin 0.20 mg/dL (0.1-1.2) 09/28/20 05:02 AST 129 units/L (5-40) H 09/28/20 05:02 ALT 60 units/L (7-56) H 09/28/20 05:02 Alkaline Phosphatase 84 units/L (35-129) 09/28/20 05:02 Troponin T < 0.010 ng/mL (0.00-0.029) 10/01/20 05:56 C-Reactive Protein 4.30 mg/dL (0.00-1.30) H 09/26/20 15:45 Total Protein 6.9 g/dL (6.3-8.2) 09/28/20 05:02 Albumin 3.7 g/dL (3.9-5) L 09/28/20 05:02 Albumin/Globulin Ratio 1.2 % 09/28/20 05:02 Triglycerides 40 mg/dL (2-149) 09/25/20 23:13 Cholesterol 132 mg/dL (50-199) 09/25/20 23:13 LDL Cholesterol Direct 66 mg/dL (50-130) 09/25/20 23:13 HDL Cholesterol 60 mg/dL (40-59) H 09/25/20 23:13 Cholesterol/HDL Ratio 2.20 % 09/25/20 23:13 Procalcitonin 0.31 ng/mL (<0.15) 09/26/20 15:45 Arterial Blood Glucose 124 mg/dL (65-95) H 10/01/20 04:12 Arterial Blood Ionized Calcium 4.8 mg/dL (4.6-5.3) 10/01/20 04:12 Urine Color Yellow (Yellow) 09/25/20 17:19 Urine Turbidity Cloudy (Clear) 09/25/20 17:19 Urine pH 7.0 (5.0-7.0) 09/25/20 17:19 Ur Specific [place] 1.012 (1.003-1.030) 09/25/20 17:19 Urine Protein >500 mg/dL (Negative) 09/25/20 17:19 Urine Glucose (UA) 50 mg/dL (Negative) 09/25/20 17:19 Urine Ketones Neg mg/dL (Negative) 09/25/20 17:19 Urine Blood Sm (Negative) 09/25/20 17:19 Urine Nitrite Neg (Negative) 09/25/20 17:19 Urine Bilirubin Neg (Negative) 09/25/20 17:19 Urine Urobilinogen < 2.0 mg/dL (<2.0) 09/25/20 17:19 Ur Leukocyte Esterase Neg (Negative) 09/25/20 17:19 Urine WBC (Auto) 14.0 /HPF (0.0-6.0) H 09/25/20 17:19 Urine RBC (Auto) 101.0 /HPF (0.0-6.0) 09/25/20 17:19 U Epithel Cells (Auto) 1.0 /HPF (0-13.0) 09/25/20 17:19 Urine Bacteria (Auto) 1+ /HPF (Negative) 09/25/20 17:19 Urine HCG, Qual Negative (Negative) 09/25/20 17:19 Urine Opiates Screen Presumptive negative 09/25/20 17:19 Urine Methadone Screen Presumptive negative 09/25/20 17:19 Ur Barbiturates Screen Presumptive negative 09/25/20 17:19 Ur Phencyclidine Scrn Presumptive negative 09/25/20 17:19 Ur Amphetamines Screen Presumptive negative 09/25/20 17:19 U Benzodiazepines Scrn Presumptive negative 09/25/20 17:19 Urine Cocaine Screen Presumptive negative 09/25/20 17:19 U Marijuana (THC) Screen Presumptive negative 09/25/20 17:19 Drugs of Abuse Note Disclamer 09/25/20 17:19 Coronavirus (PCR) Negative (Negative) 09/26/20 Unknown Blood Type B POSITIVE 09/25/20 19:00 Antibody Screen Negative 09/25/20 19:00 Microbiology: Microbiology 09/25/20 18:15 Peripheral/Venous Blood Culture - Final NO GROWTH AFTER 5 DAYS 09/25/20 18:15 Peripheral/Venous Blood Culture - Final NO GROWTH AFTER 5 DAYS Grace/IV: Voiding Method Indwelling Catheter Active Medications - Current Medications Current Medications: Generic Name Dose Route Start Last Admin Trade Name Freq PRN Reason Stop Dose Admin Acetaminophen 650 mg 09/25/20 18:45 Acetaminophen 650 Mg Rect Supp [place] Q6H PRN Pain MILD(1-3)/Fever >100.5/RUIZ Acetaminophen 650 mg 09/25/20 18:49 10/01/20 15:54 Acetaminophen 325 Mg Tab PO 650 mg Q6H PRN Administration Pain, Mild (1-3) Albuterol 2.5 mg 09/25/20 18:45 Albuterol 2.5 Mg/3 Ml Nebu IH Q3HRT PRN Shortness Of Breath Lipase/Protease/Amylase 1 each 09/27/20 13:01 Lipase 10,500/Protease 25,000/Amylase 43,750 (Units) Dr Cap FEEDTUBE PRN PRN For Clogged Feeding Tube Aspirin 81 mg 10/01/20 10:00 10/01/20 10:12 Aspirin 81 Mg Tab Chew PO 81 mg QDAY RAMESH Administration Carvedilol 25 mg 09/30/20 22:00 10/01/20 10:12 Carvedilol 25 Mg Tab PO 25 mg Q12HR RAMESH Administration Famotidine 20 mg 09/30/20 10:00 10/01/20 10:12 Famotidine 20 Mg Tab PO 20 mg BID RAMESH Administration Hydromorphone HCl 0.25 mg 09/25/20 18:49 09/30/20 14:05 Hydromorphone 1 Mg/1 Ml Inj IV 0.25 mg Q4H PRN Administration Pain, Moderate (4-6) Hydrophilic Ointment 1 applic 09/25/20 16:52 Lip Therapy Vaseline TP Q2HR PRN Dry Lips Heparin Sodium/Sodium Chloride 25,000 unit in 500 mls @ 20 mls/hr 09/25/20 21:00 10/01/20 15:54 Heparin/ 0.45% Nacl-25,000 Unit/500 Ml IV 900 units/hr TITRATE RAMESH 18 mls/hr Administration Protocol 1,000 UNITS/HR Propofol 1,000 mg in 100 mls @ 3.201 mls/hr 09/26/20 14:00 09/28/20 19:01 Diprivan 10 Mg/Ml IV 0 mcg/kg/min TITR RAMESH 0 mls/hr Titration Protocol 5 MCG/KG/MIN Labetalol HCl 10 mg 09/27/20 12:51 09/30/20 14:02 Labetalol 20 Mg/4 Ml Inj IV 10 mg Q4H PRN Administration Blood Pressure Levetiracetam 750 mg 09/30/20 22:00 10/01/20 10:11 Levetiracetam 500 Mg/5 Ml Oral Liqd PO 750 mg BID RAMESH Administration Lorazepam 2 mg 09/26/20 13:45 Lorazepam 2 Mg/Ml Vial IV Q4H PRN Seizures Losartan Potassium 100 mg 09/30/20 16:00 10/01/20 10:11 Losartan 50 Mg Tab PO 100 mg QDAY RAMESH Administration Metoclopramide HCl 10 mg 09/30/20 16:33 09/30/20 20:20 Metoclopramide 10 Mg/2 Ml Inj IV 10 mg Q6H PRN Administration Nausea And Vomiting Multi-Ingred Cream/Lotion/Oil/Oint 1 applic 09/25/20 16:52 09/28/20 22:02 Mineral Oil/Petrolatum, White Ophth Oint 3.5 Gm OU 1 applic Q4HR PRN Administration Dry Eye(s) Ondansetron HCl 4 mg 09/30/20 01:25 09/30/20 10:01 Ondansetron 4 Mg/2 Ml Inj IV 4 mg Q8H PRN Administration Nausea And Vomiting Scopolamine 1 each 10/01/20 16:00 Scopolamine Transdermal Patch 72 Hr TD Q72HR RAMESH Senna/Docusate Sodium 1 tab 09/25/20 22:00 10/01/20 10:10 Sennosides/Docusate Sodium 8.6/50 Mg Tab FEEDTUBE 1 tab BID RAMESH Administration Simple Syrup 15 ml 09/27/20 13:01 Simple Syrup 15 Ml FEEDTUBE PRN PRN Hypoglycemia Simple Syrup 30 ml 09/27/20 13:01 09/29/20 06:13 Simple Syrup 15 Ml FEEDTUBE 30 ml PRN PRN Administration Hypoglycemia Sodium Bicarbonate 325 mg 09/27/20 13:01 Sodium Bicarbonate 325 Mg Tab FEEDTUBE PRN PRN For Clogged Feeding Tube Sodium Chloride 10 ml 09/25/20 22:00 10/01/20 10:13 Sodium Chloride 0.9% 10 Ml Flush Syringe IV 10 ml BID RAMESH Administration Sodium Chloride 10 ml 09/25/20 18:45 Sodium Chloride 0.9% 10 Ml Flush Syringe IV PRN PRN LINE FLUSH Nutrition/Malnutrition Assess - Dietary Evaluation Nutrition/Malnutrition Findings: Nutrition Notes Start: 09/27/20 12:48 Freq: Status: Active Protocol: Document 09/30/20 12:00 (Rec: 09/30/20 12:04 [id number]) Nutrition Notes Initial or Follow up Assessment Current Diagnosis Sepsis,Respiratory Failure Other Pertinent Diagnosis cardiac arrest, SOB. NSTEMI, pneu, UTI, GERD Current Diet Vital AF 1.2 at 55 ml/hr Labs/Tests Reviewed Pertinent Medications Zofran Height 5 ft 5 in Weight 106.7 kg [place] Body Weight (kg) 56.81 BMI 39.1 Weight Status Obese Subjective/Other Information FU for TF tolerance. Observed TF running at goal rate. Pt tolerating. Percent of energy/protein needs met: 99%/87% Burn Absent Trauma Absent Current % PO Negligible Minimum of two criteria No physical signs of malnutrition #1 Nutrition Diagnosis Inadequate oral intake Diagnosis Progress(for reassessment Continues documentation) Is patient on ventilator? Yes Is Patient Ambulatory and/or Out of Bed No REE-([facility]-confined to bed) 2051.588 Kcal/Kg value to use for calculation 15 Approximate Energy Requirements Using 1601 kcal/Kg Calculation Used for Recommendations Kcal/kg Additional Notes protein needs: >114 (> 2g/ kgIBW) fluid needs: 1 ml/kcal or per MD order Nutrition Intervention Change Diet Order: Continue Nutrition Support: Vital AF at 55 ml/hr with a free water flush of 85 ml q4h Kcal 1,584 Protein (gm) 99 Fluid (mL) 1,071 Goal #1 meet at least 75% of kcal and protein needs via TF Anticipated Discharge Needs: unable to determine at this time Follow-Up By: 10/02/20 Additional Comments FU for TF tolerance <MAX FERMIN - Last Filed: 10/02/20 07:09> Assessment and Plan Assessment and plan: Agree with assessment and plan as outlined as above. Family at the bedside, updated family as to the patient's prognosis. MRI pending, neurology to give recommendations as to the patient's mentation. Hospitalist Physical - Constitutional Vitals: Temp Pulse Resp BP Pulse Ox 100.6 F H 73 17 120/37 100 10/02/20 03:26 10/02/20 06:08 10/02/20 06:08 10/02/20 05:32 10/02/20 06:08 HEART Score - HEART Score Troponin: Troponin T < 0.010 ng/mL (0.00-0.029) 10/01/20 05:56 Results - Labs CBC & Chem 7: 10/02/20 06:48 10/01/20 05:56 Labs: Laboratory Last Values WBC 14.2 K/mm3 (4.5-11.0) H 10/02/20 06:48 RBC 3.92 M/mm3 (3.65-5.03) 10/02/20 06:48 Hgb 9.6 gm/dl (10.1-14.3) L 10/02/20 06:48 Hct 31.0 % (30.3-42.9) 10/02/20 06:48 MCV 79 fl (79-97) 10/02/20 06:48 MCH 25 pg (28-32) L 10/02/20 06:48 MCHC 31 % (30-34) 10/02/20 06:48 RDW 21.7 % (13.2-15.2) H 10/02/20 06:48 Plt Count 325 K/mm3 (140-440) 10/02/20 06:48 Lymph % (Auto) 20.1 % (13.4-35.0) 09/30/20 15:05 [place] % (Auto) 13.5 % (0.0-7.3) H 09/30/20 15:05 Eos % (Auto) 0.4 % (0.0-4.3) 09/30/20 15:05 Baso % (Auto) 1.0 % (0.0-1.8) 09/30/20 15:05 Lymph # (Auto) 2.5 K/mm3 (1.2-5.4) 09/30/20 15:05 [place] # (Auto) 1.7 K/mm3 (0.0-0.8) H 09/30/20 15:05 Eos # (Auto) 0.0 K/mm3 (0.0-0.4) 09/30/20 15:05 Baso # (Auto) 0.1 K/mm3 (0.0-0.1) 09/30/20 15:05 Seg Neutrophils % 65.0 % (40.0-70.0) 09/30/20 15:05 Seg Neutrophils # 8.1 K/mm3 (1.8-7.7) H 09/30/20 15:05 PT 13.7 Sec. (12.2-14.9) 09/25/20 18:15 INR 1.00 (0.87-1.13) 09/25/20 18:15 APTT 21.1 Sec. (24.2-36.6) L 09/25/20 18:15 Heparin Anti-Xa Level 0.61 U.I./ml (0.3-0.7) 10/01/20 19:40 ABG pH 7.424 (7.320-7.450) 10/01/20 04:12 POC ABG pCO2 41.6 mmHg (32.0-48.0) 10/01/20 04:12 POC ABG pO2 73.0 mmHg (83-108) L 10/01/20 04:12 POC ABG HCO3 26.6 10/01/20 04:12 ABG O2 Saturation 94.3 (0-100) 10/01/20 04:12 POC ABG Base Excess 2.0 10/01/20 04:12 ABG Hemoglobin 10.0 (12.0-17.5) L 10/01/20 04:12 ABG Oxyhemoglobin 93.7 (94-98) L 10/01/20 04:12 ABG Methemoglobin 0.3 (0.0-1.5) 10/01/20 04:12 ABG Sodium 146.4 mmol/L (136.0-145.0) H 10/01/20 04:12 ABG Potassium 3.8 mmol/L (3.40-4.50) 10/01/20 04:12 ABG Chloride 110.0 mmol/L (98-107) H 10/01/20 04:12 ABG Glucose 124 mg/dL (65-95) H 10/01/20 04:12 Carboxyhemoglobin 0.3 (0.5-1.5) L 10/01/20 04:12 FiO2 % 25.0 10/01/20 04:12 Sodium 147 mmol/L (137-145) H 10/01/20 05:56 Potassium 4.6 mmol/L (3.6-5.0) D 10/01/20 05:56 Chloride 109.6 mmol/L (98-107) H 10/01/20 05:56 Carbon Dioxide 23 mmol/L (22-30) 10/01/20 05:56 Anion Gap 19 mmol/L 10/01/20 05:56 BUN 15 mg/dL (7-17) 10/01/20 05:56 Creatinine 1.1 mg/dL (0.6-1.2) 10/01/20 05:56 Estimated GFR > 60 ml/min 10/01/20 05:56 BUN/Creatinine Ratio 14 % 10/01/20 05:56 Glucose 109 mg/dL (65-100) H 10/01/20 05:56 POC Glucose 121 mg/dL (70-105) H 10/02/20 05:27 Lactic Acid 1.00 mmol/L (0.7-2.0) 09/27/20 04:41 Calcium 9.1 mg/dL (8.4-10.2) 10/01/20 05:56 Phosphorus 2.00 mg/dL (2.5-4.5) L 09/30/20 15:05 Magnesium 1.80 mg/dL (1.7-2.3) 09/30/20 15:05 Total Bilirubin 0.20 mg/dL (0.1-1.2) 09/28/20 05:02 AST 129 units/L (5-40) H 09/28/20 05:02 ALT 60 units/L (7-56) H 09/28/20 05:02 Alkaline Phosphatase 84 units/L (35-129) 09/28/20 05:02 Troponin T < 0.010 ng/mL (0.00-0.029) 10/01/20 05:56 C-Reactive Protein 4.30 mg/dL (0.00-1.30) H 09/26/20 15:45 Total Protein 6.9 g/dL (6.3-8.2) 09/28/20 05:02 Albumin 3.7 g/dL (3.9-5) L 09/28/20 05:02 Albumin/Globulin Ratio 1.2 % 09/28/20 05:02 Triglycerides 40 mg/dL (2-149) 09/25/20 23:13 Cholesterol 132 mg/dL (50-199) 09/25/20 23:13 LDL Cholesterol Direct 66 mg/dL (50-130) 09/25/20 23:13 HDL Cholesterol 60 mg/dL (40-59) H 09/25/20 23:13 Cholesterol/HDL Ratio 2.20 % 09/25/20 23:13 Procalcitonin 0.31 ng/mL (<0.15) 09/26/20 15:45 Arterial Blood Glucose 124 mg/dL (65-95) H 10/01/20 04:12 Arterial Blood Ionized Calcium 4.8 mg/dL (4.6-5.3) 10/01/20 04:12 Urine Color Yellow (Yellow) 09/25/20 17:19 Urine Turbidity Cloudy (Clear) 09/25/20 17:19 Urine pH 7.0 (5.0-7.0) 09/25/20 17:19 Ur Specific [place] 1.012 (1.003-1.030) 09/25/20 17:19 Urine Protein >500 mg/dL (Negative) 09/25/20 17:19 Urine Glucose (UA) 50 mg/dL (Negative) 09/25/20 17:19 Urine Ketones Neg mg/dL (Negative) 09/25/20 17:19 Urine Blood Sm (Negative) 09/25/20 17:19 Urine Nitrite Neg (Negative) 09/25/20 17:19 Urine Bilirubin Neg (Negative) 09/25/20 17:19 Urine Urobilinogen < 2.0 mg/dL (<2.0) 09/25/20 17:19 Ur Leukocyte Esterase Neg (Negative) 09/25/20 17:19 Urine WBC (Auto) 14.0 /HPF (0.0-6.0) H 09/25/20 17:19 Urine RBC (Auto) 101.0 /HPF (0.0-6.0) 09/25/20 17:19 U Epithel Cells (Auto) 1.0 /HPF (0-13.0) 09/25/20 17:19 Urine Bacteria (Auto) 1+ /HPF (Negative) 09/25/20 17:19 Urine HCG, Qual Negative (Negative) 09/25/20 17:19 Urine Opiates Screen Presumptive negative 09/25/20 17:19 Urine Methadone Screen Presumptive negative 09/25/20 17:19 Ur Barbiturates Screen Presumptive negative 09/25/20 17:19 Ur Phencyclidine Scrn Presumptive negative 09/25/20 17:19 Ur Amphetamines Screen Presumptive negative 09/25/20 17:19 U Benzodiazepines Scrn Presumptive negative 09/25/20 17:19 Urine Cocaine Screen Presumptive negative 09/25/20 17:19 U Marijuana (THC) Screen Presumptive negative 09/25/20 17:19 Drugs of Abuse Note Disclamer 09/25/20 17:19 Coronavirus (PCR) Negative (Negative) 09/26/20 Unknown Blood Type B POSITIVE 09/25/20 19:00 Antibody Screen Negative 09/25/20 19:00 Grace/IV: Voiding Method Indwelling Catheter Active Medications - Current Medications Current Medications: Generic Name Dose Route Start Last Admin Trade Name Freq PRN Reason Stop Dose Admin Acetaminophen 650 mg 09/25/20 18:45 Acetaminophen 650 Mg Rect Supp [place] Q6H PRN Pain MILD(1-3)/Fever >100.5/RUIZ Acetaminophen 650 mg 09/25/20 18:49 10/01/20 15:54 Acetaminophen 325 Mg Tab PO 650 mg Q6H PRN Administration Pain, Mild (1-3) Albuterol 2.5 mg 09/25/20 18:45 Albuterol 2.5 Mg/3 Ml Nebu IH Q3HRT PRN Shortness Of Breath Lipase/Protease/Amylase 1 each 09/27/20 13:01 Lipase 10,500/Protease 25,000/Amylase 43,750 (Units) Dr [place] FEEDTUBE PRN PRN For Clogged Feeding Tube Aspirin 81 mg 10/01/20 10:00 10/01/20 10:12 Aspirin 81 Mg Tab Chew PO 81 mg QDAY RAMESH Administration Carvedilol 25 mg 09/30/20 22:00 10/01/20 21:31 Carvedilol 25 Mg Tab PO 25 mg Q12HR RAMESH Administration Famotidine 20 mg 09/30/20 10:00 10/01/20 21:31 Famotidine 20 Mg Tab PO 20 mg BID RAMESH Administration Hydromorphone HCl 0.25 mg 09/25/20 18:49 09/30/20 14:05 Hydromorphone 1 Mg/1 Ml Inj IV 0.25 mg Q4H PRN Administration Pain, Moderate (4-6) Hydrophilic Ointment 1 applic 09/25/20 16:52 Lip Therapy Vaseline TP Q2HR PRN Dry Lips Heparin Sodium/Sodium Chloride 25,000 unit in 500 mls @ 20 mls/hr 09/25/20 21:00 10/01/20 15:54 Heparin/ 0.45% Nacl-25,000 Unit/500 Ml IV 900 units/hr TITRATE RAMESH 18 mls/hr Administration Protocol 1,000 UNITS/HR Propofol 1,000 mg in 100 mls @ 3.201 mls/hr 09/26/20 14:00 09/28/20 19:01 Diprivan 10 Mg/Ml IV 0 mcg/kg/min TITR RAMESH 0 mls/hr Titration Protocol 5 MCG/KG/MIN Labetalol HCl 10 mg 09/27/20 12:51 09/30/20 14:02 Labetalol 20 Mg/4 Ml Inj IV 10 mg Q4H PRN Administration Blood Pressure Levetiracetam 750 mg 09/30/20 22:00 10/01/20 21:31 Levetiracetam 500 Mg/5 Ml Oral Liqd PO 750 mg BID RAMESH Administration Lorazepam 2 mg 09/26/20 13:45 Lorazepam 2 Mg/Ml Vial IV Q4H PRN Seizures Losartan Potassium 100 mg 09/30/20 16:00 10/01/20 10:11 Losartan 50 Mg Tab PO 100 mg QDAY RAMESH Administration Metoclopramide HCl 10 mg 09/30/20 16:33 09/30/20 20:20 Metoclopramide 10 Mg/2 Ml Inj IV 10 mg Q6H PRN Administration Nausea And Vomiting Multi-Ingred Cream/Lotion/Oil/Oint 1 applic 09/25/20 16:52 09/28/20 22:02 Mineral Oil/Petrolatum, White Ophth Oint 3.5 Gm OU 1 applic Q4HR PRN Administration Dry Eye(s) Ondansetron HCl 4 mg 09/30/20 01:25 09/30/20 10:01 Ondansetron 4 Mg/2 Ml Inj IV 4 mg Q8H PRN Administration Nausea And Vomiting Scopolamine 1 each 10/01/20 16:00 Scopolamine Transdermal Patch 72 Hr TD Q72HR RAMESH Senna/Docusate Sodium 1 tab 09/25/20 22:00 10/01/20 21:30 Sennosides/Docusate Sodium 8.6/50 Mg Tab FEEDTUBE 1 tab BID RAMESH Administration Simple Syrup 15 ml 09/27/20 13:01 Simple Syrup 15 Ml FEEDTUBE PRN PRN Hypoglycemia Simple Syrup 30 ml 09/27/20 13:01 09/29/20 06:13 Simple Syrup 15 Ml FEEDTUBE 30 ml PRN PRN Administration Hypoglycemia Sodium Bicarbonate 325 mg 09/27/20 13:01 Sodium Bicarbonate 325 Mg Tab FEEDTUBE PRN PRN For Clogged Feeding Tube Sodium Chloride 10 ml 09/25/20 22:00 10/01/20 10:13 Sodium Chloride 0.9% 10 Ml Flush Syringe IV 10 ml BID RAMESH Administration Sodium Chloride 10 ml 09/25/20 18:45 Sodium Chloride 0.9% 10 Ml Flush Syringe IV PRN PRN LINE FLUSH Nutrition/Malnutrition Assess - Dietary Evaluation Nutrition/Malnutrition Findings: Nutrition Notes Start: 09/27/20 12:48 Freq: Status: Active Protocol: Document 09/30/20 12:00 (Rec: 09/30/20 12:04 [id number]) Nutrition Notes Initial or Follow up Assessment Current Diagnosis Sepsis,Respiratory Failure Other Pertinent Diagnosis cardiac arrest, SOB. NSTEMI, pneu, UTI, GERD Current Diet Vital AF 1.2 at 55 ml/hr Labs/Tests Reviewed Pertinent Medications Zofran Height 5 ft 5 in Weight 106.7 kg [place] Body Weight (kg) 56.81 BMI 39.1 Weight Status Obese Subjective/Other Information FU for TF tolerance. Observed TF running at goal rate. Pt tolerating. Percent of energy/protein needs met: 99%/87% Burn Absent Trauma Absent Current % PO Negligible Minimum of two criteria No physical signs of malnutrition #1 Nutrition Diagnosis Inadequate oral intake Diagnosis Progress(for reassessment Continues documentation) Is patient on ventilator? Yes Is Patient Ambulatory and/or Out of Bed No REE-([facility]-confined to bed) 2051.588 Kcal/Kg value to use for calculation 15 Approximate Energy Requirements Using 1601 kcal/Kg Calculation Used for Recommendations Kcal/kg Additional Notes protein needs: >114 (> 2g/ kgIBW) fluid needs: 1 ml/kcal or per MD order Nutrition Intervention Change Diet Order: Continue Nutrition Support: Vital AF at 55 ml/hr with a free water flush of 85 ml q4h Kcal 1,584 Protein (gm) 99 Fluid (mL) 1,071 Goal #1 meet at least 75% of kcal and protein needs via TF Anticipated Discharge Needs: unable to determine at this time Follow-Up By: 10/02/20 Additional Comments FU for TF tolerance
--- NOTE | 2020-10-02 05:24 | XRay Report ---
CHEST 1 VIEW, 10/02/2020 1:31 AM CLINICAL INFORMATION/INDICATION: Respiratory failure COMPARISON: Chest radiograph, 10/01/2020 at 2:25 AM FINDINGS: SUPPORT DEVICES: The endotracheal tube and esophagogastric tube remain in stable position. HEART: There is stable mild enlargement of the cardiac silhouette. LUNGS/PLEURA: No focal consolidation, large pleural effusion or pneumothorax is identified. ADDITIONAL FINDINGS: No additional acute findings. IMPRESSION: 1. Stable appearance of the chest. Signer Name: Alice Suazo MD Signed: 10/02/2020 5:20 AM Workstation Name: [id number]
[2020-10-02 06:58] LABS: Hemoglobin 9.6 gm/dl (10.1-14.3); Mean Corpuscular HGB Conc 31 % (30-34); Mean Corpuscular Volume 79 fl (79-97); Platelet Count 325 K/mm3 (140-440); Red Blood Count 3.92 M/mm3 (3.65-5.03)
[2020-10-02 07:01] LABS: Red Cell Distribution Width 21.7 % (13.2-15.2)
[2020-10-02 07:10] LABS: BUN/Creatinine Ratio 19; Blood Urea Nitrogen 15 mg/dL (7-17); Calcium 9.7 mg/dL (8.4-10.2); Hemolysis Index 10
[2020-10-02] MEDS: LOSARTAN 50 MG TAB PO SCH (09:42)
[2020-10-02] MEDS: levETIRAcetam 500 MG/5 ML ORAL LIQD PO SCH ×2 (09:42→21:43)
[2020-10-02] MEDS: ASPIRIN 81 MG TAB CHEW PO SCH (09:43)
[2020-10-02] MEDS: FAMOTIDINE 20 MG TAB PO SCH ×2 (09:43→21:44)
[2020-10-02] MEDS: SENNOSIDES/DOCUSATE SODIUM 8.6/50 MG TAB FEEDTUBE SCH (09:43)
[2020-10-02] MEDS: SCOPOLAMINE TRANSDERMAL PATCH 72 HR TD SCH (09:43)
[2020-10-02] MEDS: carvediloL 25 MG TAB PO SCH (10:08)
--- NOTE | 2020-10-02 10:22 | Progress Note ---
Assessment and Plan S/p cardiac arrest with ROSC * Patient is intubated and unresponsive, currently off sedation. * Seizure activity was noted after ROSC. * MRI brain is pending. Anoxic injury is suspected. Neurology is following NSTEMI * Twelve-lead shows sinus rhythm with nonspecific T wave abnormalities in anterior leads. No acute ischemic changes. Troponin elevated at time of admission, currently negative x2. Continue to trend CE's. Heart failure reduced ejection fraction in setting of new onset cardiomyopathy * Previous echocardiogram reviewed (10/23/2019): LVEF is 50 to 55%. LV chamber and wall dimensions are normal. Normal LV systolic function. Normal left atrial pressure and diastolic function. RV SF is normal. Mild MR. * Echocardiogram reviewed (09/25/2020): LVEF is 20 to 25%. Left ventricle is mildly dilated. LV SF is severely decreased. Severe global hypokinesis of the left ventricle. RV SF is normal. RVSP is 26 mmHg. * Continue goal-directed therapy with cardioprotective regimen: bASA, Coreg 25 mg BID, losartan 100 mg daily. Allow some degree of physiologic tachycardia in setting of severe cardiomyopathy. * Considering current acuity and comorbidities will plan for conservative cardiac management. If/when patient is stabilized will need ischemic eval and outpatient cardiac rehab post discharge. DVT Prophylaxis * Heparin gtt, SCDs in place. We will follow This patient was seen in conjunction with Dr. Alvarez who agrees with this assessment and plan of care - Patient Problems (1) Dilated cardiomyopathy Current Visit: Yes Status: Acute (2) Cardiac arrest Current Visit: Yes Status: Acute (3) DVT prophylaxis Current Visit: Yes Status: Acute (4) Seizure Current Visit: Yes Status: Acute (5) NSTEMI (non-ST elevated myocardial infarction) Current Visit: Yes Status: Acute Subjective Date of service: 10/02/20 Principal diagnosis: Cardiac arrest; Ac. respiratory failure; Anoxic encephalopathy; PNA; NSTEMI Interval history: Patient currently resting in bed intubated, unresponsive not under sedation. Telemetry reviewed: Sinus rhythm 74 with occasional PACs. No events Objective Last Vital Signs Temp 99.5 F 10/02/20 08:00 Pulse 71 10/02/20 09:42 Resp 16 10/02/20 09:01 BP 111/46 10/02/20 09:42 Pulse Ox 99 10/02/20 09:01 - Physical Examination General: Other (intubated) Neck: Positive: neck supple, trachea midline Cardiac: Positive: Reg Rate and Rhythm, S1/S2 Lungs: Positive: Ventilated Respirations Neuro: Positive: Other (Patient intubated ) Abdomen: Positive: Soft Skin: Negative: Rash, Wound Extremities: Present: lower extr. pulses, edema - Labs and Meds CBC 10/02/20 Range/Units 06:48 WBC 14.2 H (4.5-11.0) K/mm3 RBC 3.92 (3.65-5.03) M/mm3 Hgb 9.6 L (10.1-14.3) gm/dl Hct 31.0 (30.3-42.9) % Plt Count 325 (140-440) K/mm3 Comprehensive Metabolic Panel 10/02/20 Range/Units 06:48 Sodium 147 H (137-145) mmol/L Potassium 4.1 (3.6-5.0) mmol/L Chloride 110.4 H (98-107) mmol/L Carbon Dioxide 28 (22-30) mmol/L BUN 15 (7-17) mg/dL Creatinine 0.8 (0.6-1.2) mg/dL Glucose 134 H (65-100) mg/dL Calcium 9.7 (8.4-10.2) mg/dL - Imaging and Cardiology EKG: report reviewed, image reviewed Echo: report reviewed - Telemetry EKG Rhythm: Sinus Rhythm - EKG Sinus rhythms and dysrhythmias: sinus tachycardia - Allied health notes Allied health notes reviewed: nursing
--- NOTE | 2020-10-02 10:59 | Progress Note ---
Assessment and Plan Assessment and Plan # Cardiac arrest -Patient treated" with ACLS protocol with return of perfusing cardiac rhythm, -cardiology team consulted, -echocardiogram with EF#20-25% -hx of Dialted cardiomyopathy -On ASA -troponin is negative # Acute hypoxemic respiratory failure -Patient intubated and on ventilatory support: - Critical care team consulted, wean vent as tolerated, -daily spontaneous breathing trial, sedation holiday, daily ABG. # Anoxic brain injury -Ct brain is unremarkable -EEG is remarkable for diffuse slowing low voltage -MRI brain pending -keep of sedation -Over all prognosis is poor -Case D/W her family on the phone yesterday-- await MRI #Sepsis -Sepsis protocol: Chest x-ray, CBC, BMP, urinalysis, IV antibiotic therapy, IV fluid resuscitation therapy, maintain mean arterial pressure greater than or equal to 65, # NSTEMI (non-ST elevated myocardial infarction) -Cardiology team consulted, therapeutic anticoagulation as per cardiology team, echocardiogram ordered and is pending at time of admission. # Pneumonia -Pneumonia protocol: IV antibiotic therapy, chest x-ray, CBC, CMP, blood culture, # Acidosis -Treat sepsis, IV fluid resuscitation therapy, BMP, repeat BMP in a.m. Serial lactic acid level. # Seizure disorder -Antiepilepsy therapy with Keppra, seizure precautions. -EEG done # DVT prophylaxis -SCD to bilateral lower extremities while in bed, therapeutic anticoagulation The high probability of a clinically significant, sudden or life threatening deterioration of the [cardiac, pulmonary, renal, neuro] system(s) required my full and direct attention, intervention and personal management. The aggregate critical care time was [80] minutes. This time is in addition to time spent performing reported procedures but includes the following: [x] Data Review and interpretation [x] Patient assessment and monitoring of vital signs [x] Documentation [x] Medication orders and management Subjective Date of service: 10/02/20 Principal diagnosis: Cardiac arrest; Ac. respiratory failure; Anoxic encephalopathy; PNA; NSTEMI Interval history: Status is unchanged , intubated off sedation MRI not done Objective - Vital Sign Vital Signs - 12hr 10/01/20 10/01/20 10/02/20 23:00 23:30 00:00 Temperature 99.8 F H Pulse Rate 85 87 85 Pulse Rate [ From Monitor] Respiratory 16 16 14 Rate Blood Pressure 109/50 124/57 124/57 O2 Sat by Pulse 99 98 100 Oximetry 10/02/20 10/02/20 10/02/20 00:30 01:00 01:04 Temperature Pulse Rate 81 82 80 Pulse Rate [ From Monitor] Respiratory 14 12 Rate Blood Pressure 125/59 119/54 121/44 O2 Sat by Pulse 99 99 100 Oximetry 10/02/20 10/02/20 10/02/20 01:30 02:00 02:30 Temperature Pulse Rate 73 73 72 Pulse Rate [ From Monitor] Respiratory 13 16 12 Rate Blood Pressure 121/44 121/44 124/60 O2 Sat by Pulse 100 99 99 Oximetry 10/02/20 10/02/20 10/02/20 03:00 03:26 03:30 Temperature 100.6 F H Pulse Rate 74 75 Pulse Rate [ From Monitor] Respiratory 15 13 Rate Blood Pressure 122/45 116/47 O2 Sat by Pulse 99 100 Oximetry 10/02/20 10/02/20 10/02/20 04:00 04:30 05:00 Temperature Pulse Rate 83 86 79 Pulse Rate [ From Monitor] Respiratory 17 15 17 Rate Blood Pressure 116/44 123/51 134/50 O2 Sat by Pulse 100 100 100 Oximetry 10/02/20 10/02/20 10/02/20 05:30 05:32 06:08 Temperature Pulse Rate 72 74 73 Pulse Rate [ From Monitor] Respiratory 15 17 Rate Blood Pressure 127/44 120/37 O2 Sat by Pulse 100 100 100 Oximetry 10/02/20 10/02/20 10/02/20 06:30 07:00 07:30 Temperature Pulse Rate 86 79 81 Pulse Rate [ From Monitor] Respiratory 16 16 16 Rate Blood Pressure 109/53 108/45 105/54 O2 Sat by Pulse 100 100 100 Oximetry 10/02/20 10/02/20 10/02/20 08:00 08:30 09:01 Temperature 99.5 F Pulse Rate 77 78 74 Pulse Rate [ 85 From Monitor] Respiratory 17 16 16 Rate Blood Pressure 119/37 117/43 119/37 O2 Sat by Pulse 99 99 99 Oximetry 10/02/20 09:42 Temperature Pulse Rate 71 Pulse Rate [ From Monitor] Respiratory Rate Blood Pressure 111/46 O2 Sat by Pulse Oximetry - General Apperance Constitutional: comfortable - EENT EENT: PERRL, mucous membranes moist - Respiratory Respiratory: chest non-tender, lungs clear, rhonchi - Cardiovascular Cardiovascular: regular rate, normal S1, normal S2 Extremities: no peripheral edema bilat, no clubbing, cyanosis - Gastrointestinal Gastrointestinal: normoactive bowel sounds - Integumentary Integumentary: normal - Neurologic Cranial nerve examination: intact (pupils 4mm none reactive, absnt corneal,no gag , eyes slightly wondering no clear EOM ) Detailed motor examination: other (No movment to stimuli) - Laboratory Findings CBC and BMP: 10/02/20 06:48 10/02/20 06:48 Abnormal Lab Findings: Abnormal Labs 09/25/20 09/25/20 09/25/20 17:19 17:21 18:15 WBC 13.8 H Hgb 9.9 L Hct MCV 76 L MCH 23 L RDW 17.9 H Lymph % (Auto) [place] % (Auto) Lymph # (Auto) [place] # (Auto) Seg Neutrophils % 78.6 H Seg Neutrophils # 10.8 H APTT Heparin Anti-Xa Level ABG pH POC ABG pCO2 26.2 L POC ABG pO2 554.5 H ABG Hemoglobin 9.0 L ABG Oxyhemoglobin 99.0 H ABG Sodium 134.5 L ABG Potassium ABG Chloride ABG Glucose 220 H Carboxyhemoglobin Sodium Potassium Chloride BUN Creatinine Glucose POC Glucose Lactic Acid Calcium Phosphorus AST ALT Troponin T C-Reactive Protein Albumin HDL Cholesterol Arterial Blood Glucose 220 H Arterial Blood Ionized Calcium 4.2 L Urine WBC (Auto) 14.0 H 09/25/20 09/25/20 09/25/20 18:15 18:15 18:15 WBC Hgb Hct MCV MCH RDW Lymph % (Auto) [place] % (Auto) Lymph # (Auto) [place] # (Auto) Seg Neutrophils % Seg Neutrophils # APTT 21.1 L Heparin Anti-Xa Level ABG pH POC ABG pCO2 POC ABG pO2 ABG Hemoglobin ABG Oxyhemoglobin ABG Sodium ABG Potassium ABG Chloride ABG Glucose Carboxyhemoglobin Sodium Potassium Chloride BUN Creatinine Glucose 113 H POC Glucose Lactic Acid 2.60 H* Calcium Phosphorus AST 162 H ALT 131 H Troponin T 0.096 H C-Reactive Protein Albumin HDL Cholesterol Arterial Blood Glucose Arterial Blood Ionized Calcium Urine WBC (Auto) 09/25/20 09/25/20 09/26/20 23:13 23:13 03:15 WBC Hgb Hct MCV MCH RDW Lymph % (Auto) [place] % (Auto) Lymph # (Auto) [place] # (Auto) Seg Neutrophils % Seg Neutrophils # APTT Heparin Anti-Xa Level ABG pH 7.451 H POC ABG pCO2 27.1 L POC ABG pO2 ABG Hemoglobin 10.4 L ABG Oxyhemoglobin ABG Sodium 135.2 L ABG Potassium ABG Chloride 108.0 H ABG Glucose 137 H Carboxyhemoglobin Sodium Potassium Chloride BUN Creatinine Glucose POC Glucose Lactic Acid 2.90 H* Calcium Phosphorus AST ALT Troponin T 0.170 H* D C-Reactive Protein Albumin HDL Cholesterol 60 H Arterial Blood Glucose 137 H Arterial Blood Ionized Calcium 4.2 L Urine WBC (Auto) 09/26/20 09/26/20 09/26/20 05:09 05:09 05:09 WBC 15.8 H Hgb 10.0 L Hct MCV 77 L MCH 24 L RDW 17.8 H Lymph % (Auto) 7.2 L [place] % (Auto) Lymph # (Auto) 1.1 L [place] # (Auto) 1.0 H Seg Neutrophils % 86.1 H Seg Neutrophils # 13.6 H APTT Heparin Anti-Xa Level ABG pH POC ABG pCO2 POC ABG pO2 ABG Hemoglobin ABG Oxyhemoglobin ABG Sodium ABG Potassium ABG Chloride ABG Glucose Carboxyhemoglobin Sodium Potassium Chloride BUN Creatinine Glucose 114 H POC Glucose Lactic Acid 2.40 H* Calcium 8.1 L Phosphorus AST 112 H ALT 103 H Troponin T C-Reactive Protein Albumin 3.8 L HDL Cholesterol Arterial Blood Glucose Arterial Blood Ionized Calcium Urine WBC (Auto) 09/26/20 09/27/20 09/27/20 15:45 03:33 04:41 WBC Hgb 9.0 L Hct 28.6 L MCV MCH RDW Lymph % (Auto) [place] % (Auto) Lymph # (Auto) [place] # (Auto) Seg Neutrophils % Seg Neutrophils # APTT Heparin Anti-Xa Level ABG pH POC ABG pCO2 POC ABG pO2 141.6 H ABG Hemoglobin 9.3 L ABG Oxyhemoglobin ABG Sodium ABG Potassium 3.2 L ABG Chloride 108.0 H ABG Glucose 118 H Carboxyhemoglobin Sodium Potassium Chloride BUN Creatinine Glucose POC Glucose Lactic Acid Calcium Phosphorus 2.20 L AST ALT Troponin T C-Reactive Protein 4.30 H Albumin HDL Cholesterol Arterial Blood Glucose 118 H Arterial Blood Ionized Calcium 4.2 L Urine WBC (Auto) 09/27/20 09/27/20 09/28/20 04:41 22:53 04:00 WBC Hgb Hct MCV MCH RDW Lymph % (Auto) [place] % (Auto) Lymph # (Auto) [place] # (Auto) Seg Neutrophils % Seg Neutrophils # APTT Heparin Anti-Xa Level 0.75 H ABG pH 7.467 H POC ABG pCO2 POC ABG pO2 78.9 L ABG Hemoglobin 9.8 L ABG Oxyhemoglobin ABG Sodium ABG Potassium ABG Chloride ABG Glucose 141 H Carboxyhemoglobin Sodium Potassium Chloride BUN Creatinine Glucose POC Glucose 109 H Lactic Acid Calcium Phosphorus AST ALT Troponin T C-Reactive Protein Albumin HDL Cholesterol Arterial Blood Glucose 141 H Arterial Blood Ionized Calcium Urine WBC (Auto) 09/28/20 09/28/20 09/28/20 05:02 05:02 17:42 WBC 11.9 H Hgb 9.3 L Hct 29.5 L MCV 76 L MCH 24 L RDW 19.4 H Lymph % (Auto) [place] % (Auto) 11.1 H Lymph # (Auto) [place] # (Auto) 1.3 H Seg Neutrophils % 72.5 H Seg Neutrophils # 8.6 H APTT Heparin Anti-Xa Level ABG pH POC ABG pCO2 POC ABG pO2 ABG Hemoglobin ABG Oxyhemoglobin ABG Sodium ABG Potassium ABG Chloride ABG Glucose Carboxyhemoglobin Sodium Potassium 3.4 L Chloride BUN Creatinine Glucose 126 H POC Glucose 69 L Lactic Acid Calcium Phosphorus AST 129 H ALT 60 H Troponin T C-Reactive Protein Albumin 3.7 L HDL Cholesterol Arterial Blood Glucose Arterial Blood Ionized Calcium Urine WBC (Auto) 09/29/20 09/29/20 09/29/20 04:00 05:53 08:39 WBC Hgb 10.0 L Hct MCV MCH RDW Lymph % (Auto) [place] % (Auto) Lymph # (Auto) [place] # (Auto) Seg Neutrophils % Seg Neutrophils # APTT Heparin Anti-Xa Level ABG pH POC ABG pCO2 POC ABG pO2 81.1 L ABG Hemoglobin 11.0 L ABG Oxyhemoglobin ABG Sodium ABG Potassium ABG Chloride 110.0 H ABG Glucose 129 H Carboxyhemoglobin Sodium Potassium Chloride BUN Creatinine Glucose POC Glucose 58 L Lactic Acid Calcium Phosphorus AST ALT Troponin T C-Reactive Protein Albumin HDL Cholesterol Arterial Blood Glucose 129 H Arterial Blood Ionized Calcium Urine WBC (Auto) 09/30/20 09/30/20 09/30/20 00:10 10:45 15:05 WBC 12.5 H Hgb 9.9 L Hct MCV 78 L MCH 24 L RDW 21.0 H Lymph % (Auto) [place] % (Auto) 13.5 H Lymph # (Auto) [place] # (Auto) 1.7 H Seg Neutrophils % Seg Neutrophils # 8.1 H APTT Heparin Anti-Xa Level ABG pH 7.469 H POC ABG pCO2 POC ABG pO2 ABG Hemoglobin 10.4 L ABG Oxyhemoglobin ABG Sodium 146.2 H ABG Potassium ABG Chloride 109.0 H ABG Glucose 155 H Carboxyhemoglobin Sodium Potassium Chloride BUN Creatinine Glucose POC Glucose 131 H Lactic Acid Calcium Phosphorus AST ALT Troponin T C-Reactive Protein Albumin HDL Cholesterol Arterial Blood Glucose 155 H Arterial Blood Ionized Calcium Urine WBC (Auto) 09/30/20 09/30/20 10/01/20 15:05 17:37 00:29 WBC Hgb Hct MCV MCH RDW Lymph % (Auto) [place] % (Auto) Lymph # (Auto) [place] # (Auto) Seg Neutrophils % Seg Neutrophils # APTT Heparin Anti-Xa Level ABG pH POC ABG pCO2 POC ABG pO2 ABG Hemoglobin ABG Oxyhemoglobin ABG Sodium ABG Potassium ABG Chloride ABG Glucose Carboxyhemoglobin Sodium Potassium Chloride 109.1 H BUN 18 H Creatinine 1.4 H Glucose 122 H POC Glucose 127 H 119 H Lactic Acid Calcium Phosphorus 2.00 L AST ALT Troponin T C-Reactive Protein Albumin HDL Cholesterol Arterial Blood Glucose Arterial Blood Ionized Calcium Urine WBC (Auto) 10/01/20 10/01/20 10/01/20 04:12 05:56 05:56 WBC 14.2 H Hgb 9.7 L Hct MCV 78 L MCH 23 L RDW 21.1 H Lymph % (Auto) [place] % (Auto) Lymph # (Auto) [place] # (Auto) Seg Neutrophils % Seg Neutrophils # APTT Heparin Anti-Xa Level ABG pH POC ABG pCO2 POC ABG pO2 73.0 L ABG Hemoglobin 10.0 L ABG Oxyhemoglobin 93.7 L ABG Sodium 146.4 H ABG Potassium ABG Chloride 110.0 H ABG Glucose 124 H Carboxyhemoglobin 0.3 L Sodium 147 H Potassium Chloride 109.6 H BUN Creatinine Glucose 109 H POC Glucose Lactic Acid Calcium Phosphorus AST ALT Troponin T C-Reactive Protein Albumin HDL Cholesterol Arterial Blood Glucose 124 H Arterial Blood Ionized Calcium Urine WBC (Auto) 10/01/20 10/01/20 10/02/20 19:21 23:17 05:27 WBC Hgb Hct MCV MCH RDW Lymph % (Auto) [place] % (Auto) Lymph # (Auto) [place] # (Auto) Seg Neutrophils % Seg Neutrophils # APTT Heparin Anti-Xa Level ABG pH POC ABG pCO2 POC ABG pO2 ABG Hemoglobin ABG Oxyhemoglobin ABG Sodium ABG Potassium ABG Chloride ABG Glucose Carboxyhemoglobin Sodium Potassium Chloride BUN Creatinine Glucose POC Glucose 126 H 160 H 121 H Lactic Acid Calcium Phosphorus AST ALT Troponin T C-Reactive Protein Albumin HDL Cholesterol Arterial Blood Glucose Arterial Blood Ionized Calcium Urine WBC (Auto) 10/02/20 10/02/20 06:48 06:48 WBC 14.2 H Hgb 9.6 L Hct MCV MCH 25 L RDW 21.7 H Lymph % (Auto) [place] % (Auto) Lymph # (Auto) [place] # (Auto) Seg Neutrophils % Seg Neutrophils # APTT Heparin Anti-Xa Level ABG pH POC ABG pCO2 POC ABG pO2 ABG Hemoglobin ABG Oxyhemoglobin ABG Sodium ABG Potassium ABG Chloride ABG Glucose Carboxyhemoglobin Sodium 147 H Potassium Chloride 110.4 H BUN Creatinine Glucose 134 H POC Glucose Lactic Acid Calcium Phosphorus 2.20 L AST ALT Troponin T C-Reactive Protein Albumin HDL Cholesterol Arterial Blood Glucose Arterial Blood Ionized Calcium Urine WBC (Auto)
[2020-10-02] MEDS ORDERED: SODIUM CHLORIDE 0.9% 250ML 250 ML IV ONE (13:16)
[2020-10-02] MEDS ORDERED: LACTATED RINGERS 500 ML IV ONE (13:23)
--- NOTE | 2020-10-02 13:57 | Progress Note ---
Assessment and Plan Cardiac arrest with return of spontaneous circulation. Acute respiratory failure, on mechanical ventilatory support. Acute toxic metabolic encephalopathy. Possible anoxic encephalopathy. Obesity. History of obesity hypoventilation syndrome. Leukocytosis. Likely aspiration pneumonia, bilateral. Anemia that is microcytic. Lactic acidosis. Elevated serum transaminases. Non-ST elevation myocardial infarction - cut Losartan & Coreg doses in half (Cored down to 12.5 mg bid & Losartan to 50 mg qd) - bolus 1 liter NS & run @ 100 ml's/hr X 10 hours thereafter) - continue scopolamine patch for secretion control (improved) - RT asked to advance ETT 2 cm - follow MRI - care plan discussed with her cousin at bedside - await bilateral lower extremity dopplers re: DVT - continue IV Heparin drip for now - continue care as below otherwise; - continue to wean supplemental oxygen for target O2 sat's > 90% acutely - VAP bundle addressed - continue lung protective strategies - continue bronchodilators with pulmonary hygiene per RT - wean per pulmonary driven protocols otherwise - continue Daily SAT and SBT assessment as tolerated - continue accuchecks with glycemic control per SSI (While critically ill target blood glucose of 140-180 mg/dL; avoid hypoglycemia) - sedation prn for target RASS 0 to -1 - avoid nephrotoxins, renally dose all medications - continue to avoid benzodiazepine's, reduce the possibility of delirium - completed AB's per ID rec's - prn analgesia per CPOT score - Maintenance of sleep-wake cycle, avoid delirium - continue enteral nutritional support at goal rate as tolerated - G.I. & VTE prophylaxis - PT/OT/ROM exercises - continue mobility protocols for pressure ulcer prophylaxis - Monitor hemodynamics closely - continue other care per attending / other consultants - discharge planning ongoing concurrently COVID SPECIFIC INTERVENTIONS - COVID tests result was negative .... Re-evaluate in am & prn CONDITION: CRITICAL PROGNOSIS: GUARDED CODE STATUS: FULL CODE The high probability of a clinically significant, sudden or life-threatening deterioration of the [respiratory, cardiovascular & neurologic] system(s) required my full and direct attention, intervention and personal management. The aggregate critical care time was [33] minutes without overlap. Time includes spent on; [x] Data Review and interpretation [x] Patient assessment and monitoring of vital signs [x] Documentation [x] Medication orders and management Subjective Date of service: 10/02/20 Principal diagnosis: Cardiac arrest; Ac. respiratory failure; Anoxic encephalopathy; PNA; NSTEMI Interval history: Patient is seen today for: Cardiac arrest with ROSC; Acute respiratory failure; Anoxic encephalopathy; Obesity; OHS; Aspiration pneumonia; NSTEMI Seen and examined at bedside; 24hour events reviewed; nursing and respiratory care staff consulted; no adverse overnight events reported to me; resting in bed; remains on MVS; episode of hypotension earlier today after receiving her scheduled anti-hypertensives; AMS is persistent; still awaits MRI but should get done today Objective Vital Signs - 12hr 10/02/20 10/02/20 10/02/20 02:00 02:30 03:00 Temperature Pulse Rate 73 72 74 Pulse Rate [ From Monitor] Respiratory 16 12 15 Rate Blood Pressure 121/44 124/60 122/45 O2 Sat by Pulse 99 99 99 Oximetry 10/02/20 10/02/20 10/02/20 03:26 03:30 04:00 Temperature 100.6 F H Pulse Rate 75 83 Pulse Rate [ From Monitor] Respiratory 13 17 Rate Blood Pressure 116/47 116/44 O2 Sat by Pulse 100 100 Oximetry 10/02/20 10/02/20 10/02/20 04:30 05:00 05:30 Temperature Pulse Rate 86 79 72 Pulse Rate [ From Monitor] Respiratory 15 17 15 Rate Blood Pressure 123/51 134/50 127/44 O2 Sat by Pulse 100 100 100 Oximetry 10/02/20 10/02/20 10/02/20 05:32 06:08 06:30 Temperature Pulse Rate 74 73 86 Pulse Rate [ From Monitor] Respiratory 17 16 Rate Blood Pressure 120/37 109/53 O2 Sat by Pulse 100 100 100 Oximetry 10/02/20 10/02/20 10/02/20 07:00 07:30 08:00 Temperature 99.5 F Pulse Rate 79 81 71 Pulse Rate [ 85 From Monitor] Respiratory 16 16 17 Rate Blood Pressure 108/45 105/54 119/37 O2 Sat by Pulse 100 100 99 Oximetry 10/02/20 10/02/20 10/02/20 08:30 09:01 09:30 Temperature Pulse Rate 78 74 72 Pulse Rate [ From Monitor] Respiratory 16 16 25 H Rate Blood Pressure 117/43 119/37 119/37 O2 Sat by Pulse 99 99 97 Oximetry 10/02/20 10/02/20 10/02/20 09:42 10:00 10:08 Temperature Pulse Rate 71 79 70 Pulse Rate [ From Monitor] Respiratory 25 H Rate Blood Pressure 111/46 120/52 120/52 O2 Sat by Pulse 98 Oximetry 10/02/20 10/02/20 10/02/20 10:30 11:00 11:30 Temperature Pulse Rate 79 90 76 Pulse Rate [ From Monitor] Respiratory 24 26 H 26 H Rate Blood Pressure 115/52 115/57 105/44 O2 Sat by Pulse 98 98 99 Oximetry 10/02/20 10/02/20 10/02/20 12:00 12:30 13:00 Temperature 98.9 F Pulse Rate 74 71 72 Pulse Rate [ 76 From Monitor] Respiratory 25 H 24 24 Rate Blood Pressure 102/41 94/44 88/39 O2 Sat by Pulse 100 99 99 Oximetry 10/02/20 13:30 Temperature Pulse Rate 75 Pulse Rate [ From Monitor] Respiratory 24 Rate Blood Pressure 100/32 O2 Sat by Pulse 100 Oximetry Constitutional: no acute distress, other (middle aged obese female with mildly increased respiratory effort at rest on MVS) Eyes: non-icteric ENT: oropharynx moist, other (ETT 23 cm JAH) Neck: supple, no lymphadenopathy, no JVD Effort: normal Ascultation: Bilateral: rhonchi Percussion: Bilateral: not dull Cardiovascular: regular rate and rhythm Gastrointestinal: normoactive bowel sounds, soft, non-tender, non-distended (protuberant) Integumentary: normal Extremities: no cyanosis, no edema, pulses normal, no ischemia or petechiae Neurologic: pupils equal and round, unable to assess Psychiatric: other (unable to assess re: AMS) CBC and BMP: 10/02/20 06:48 10/02/20 06:48 ABG, PT/INR, D-dimer: ABG ABG pH 7.424 (7.320-7.450) 10/01/20 04:12 POC ABG pCO2 41.6 mmHg (32.0-48.0) 10/01/20 04:12 POC ABG pO2 73.0 mmHg (83-108) L 10/01/20 04:12 POC ABG HCO3 26.6 10/01/20 04:12 ABG O2 Saturation 94.3 (0-100) 10/01/20 04:12 PT/INR, D-dimer PT 13.7 Sec. (12.2-14.9) 09/25/20 18:15 INR 1.00 (0.87-1.13) 09/25/20 18:15 Abnormal lab findings: Abnormal Labs 09/25/20 09/25/20 09/25/20 17:19 17:21 18:15 WBC 13.8 H Hgb 9.9 L Hct MCV 76 L MCH 23 L RDW 17.9 H Lymph % (Auto) [place] % (Auto) Lymph # (Auto) [place] # (Auto) Seg Neutrophils % 78.6 H Seg Neutrophils # 10.8 H APTT Heparin Anti-Xa Level ABG pH POC ABG pCO2 26.2 L POC ABG pO2 554.5 H ABG Hemoglobin 9.0 L ABG Oxyhemoglobin 99.0 H ABG Sodium 134.5 L ABG Potassium ABG Chloride ABG Glucose 220 H Carboxyhemoglobin Sodium Potassium Chloride BUN Creatinine Glucose POC Glucose Lactic Acid Calcium Phosphorus AST ALT Troponin T C-Reactive Protein Albumin HDL Cholesterol Arterial Blood Glucose 220 H Arterial Blood Ionized Calcium 4.2 L Urine WBC (Auto) 14.0 H 09/25/20 09/25/20 09/25/20 18:15 18:15 18:15 WBC Hgb Hct MCV MCH RDW Lymph % (Auto) [place] % (Auto) Lymph # (Auto) [place] # (Auto) Seg Neutrophils % Seg Neutrophils # APTT 21.1 L Heparin Anti-Xa Level ABG pH POC ABG pCO2 POC ABG pO2 ABG Hemoglobin ABG Oxyhemoglobin ABG Sodium ABG Potassium ABG Chloride ABG Glucose Carboxyhemoglobin Sodium Potassium Chloride BUN Creatinine Glucose 113 H POC Glucose Lactic Acid 2.60 H* Calcium Phosphorus AST 162 H ALT 131 H Troponin T 0.096 H C-Reactive Protein Albumin HDL Cholesterol Arterial Blood Glucose Arterial Blood Ionized Calcium Urine WBC (Auto) 09/25/20 09/25/20 09/26/20 23:13 23:13 03:15 WBC Hgb Hct MCV MCH RDW Lymph % (Auto) [place] % (Auto) Lymph # (Auto) [place] # (Auto) Seg Neutrophils % Seg Neutrophils # APTT Heparin Anti-Xa Level ABG pH 7.451 H POC ABG pCO2 27.1 L POC ABG pO2 ABG Hemoglobin 10.4 L ABG Oxyhemoglobin ABG Sodium 135.2 L ABG Potassium ABG Chloride 108.0 H ABG Glucose 137 H Carboxyhemoglobin Sodium Potassium Chloride BUN Creatinine Glucose POC Glucose Lactic Acid 2.90 H* Calcium Phosphorus AST ALT Troponin T 0.170 H* D C-Reactive Protein Albumin HDL Cholesterol 60 H Arterial Blood Glucose 137 H Arterial Blood Ionized Calcium 4.2 L Urine WBC (Auto) 09/26/20 09/26/20 09/26/20 05:09 05:09 05:09 WBC 15.8 H Hgb 10.0 L Hct MCV 77 L MCH 24 L RDW 17.8 H Lymph % (Auto) 7.2 L [place] % (Auto) Lymph # (Auto) 1.1 L [place] # (Auto) 1.0 H Seg Neutrophils % 86.1 H Seg Neutrophils # 13.6 H APTT Heparin Anti-Xa Level ABG pH POC ABG pCO2 POC ABG pO2 ABG Hemoglobin ABG Oxyhemoglobin ABG Sodium ABG Potassium ABG Chloride ABG Glucose Carboxyhemoglobin Sodium Potassium Chloride BUN Creatinine Glucose 114 H POC Glucose Lactic Acid 2.40 H* Calcium 8.1 L Phosphorus AST 112 H ALT 103 H Troponin T C-Reactive Protein Albumin 3.8 L HDL Cholesterol Arterial Blood Glucose Arterial Blood Ionized Calcium Urine WBC (Auto) 09/26/20 09/27/20 09/27/20 15:45 03:33 04:41 WBC Hgb 9.0 L Hct 28.6 L MCV MCH RDW Lymph % (Auto) [place] % (Auto) Lymph # (Auto) [place] # (Auto) Seg Neutrophils % Seg Neutrophils # APTT Heparin Anti-Xa Level ABG pH POC ABG pCO2 POC ABG pO2 141.6 H ABG Hemoglobin 9.3 L ABG Oxyhemoglobin ABG Sodium ABG Potassium 3.2 L ABG Chloride 108.0 H ABG Glucose 118 H Carboxyhemoglobin Sodium Potassium Chloride BUN Creatinine Glucose POC Glucose Lactic Acid Calcium Phosphorus 2.20 L AST ALT Troponin T C-Reactive Protein 4.30 H Albumin HDL Cholesterol Arterial Blood Glucose 118 H Arterial Blood Ionized Calcium 4.2 L Urine WBC (Auto) 09/27/20 09/27/20 09/28/20 04:41 22:53 04:00 WBC Hgb Hct MCV MCH RDW Lymph % (Auto) [place] % (Auto) Lymph # (Auto) [place] # (Auto) Seg Neutrophils % Seg Neutrophils # APTT Heparin Anti-Xa Level 0.75 H ABG pH 7.467 H POC ABG pCO2 POC ABG pO2 78.9 L ABG Hemoglobin 9.8 L ABG Oxyhemoglobin ABG Sodium ABG Potassium ABG Chloride ABG Glucose 141 H Carboxyhemoglobin Sodium Potassium Chloride BUN Creatinine Glucose POC Glucose 109 H Lactic Acid Calcium Phosphorus AST ALT Troponin T C-Reactive Protein Albumin HDL Cholesterol Arterial Blood Glucose 141 H Arterial Blood Ionized Calcium Urine WBC (Auto) 09/28/20 09/28/20 09/28/20 05:02 05:02 17:42 WBC 11.9 H Hgb 9.3 L Hct 29.5 L MCV 76 L MCH 24 L RDW 19.4 H Lymph % (Auto) [place] % (Auto) 11.1 H Lymph # (Auto) [place] # (Auto) 1.3 H Seg Neutrophils % 72.5 H Seg Neutrophils # 8.6 H APTT Heparin Anti-Xa Level ABG pH POC ABG pCO2 POC ABG pO2 ABG Hemoglobin ABG Oxyhemoglobin ABG Sodium ABG Potassium ABG Chloride ABG Glucose Carboxyhemoglobin Sodium Potassium 3.4 L Chloride BUN Creatinine Glucose 126 H POC Glucose 69 L Lactic Acid Calcium Phosphorus AST 129 H ALT 60 H Troponin T C-Reactive Protein Albumin 3.7 L HDL Cholesterol Arterial Blood Glucose Arterial Blood Ionized Calcium Urine WBC (Auto) 09/29/20 09/29/20 09/29/20 04:00 05:53 08:39 WBC Hgb 10.0 L Hct MCV MCH RDW Lymph % (Auto) [place] % (Auto) Lymph # (Auto) [place] # (Auto) Seg Neutrophils % Seg Neutrophils # APTT Heparin Anti-Xa Level ABG pH POC ABG pCO2 POC ABG pO2 81.1 L ABG Hemoglobin 11.0 L ABG Oxyhemoglobin ABG Sodium ABG Potassium ABG Chloride 110.0 H ABG Glucose 129 H Carboxyhemoglobin Sodium Potassium Chloride BUN Creatinine Glucose POC Glucose 58 L Lactic Acid Calcium Phosphorus AST ALT Troponin T C-Reactive Protein Albumin HDL Cholesterol Arterial Blood Glucose 129 H Arterial Blood Ionized Calcium Urine WBC (Auto) 09/30/20 09/30/20 09/30/20 00:10 10:45 15:05 WBC 12.5 H Hgb 9.9 L Hct MCV 78 L MCH 24 L RDW 21.0 H Lymph % (Auto) [place] % (Auto) 13.5 H Lymph # (Auto) [place] # (Auto) 1.7 H Seg Neutrophils % Seg Neutrophils # 8.1 H APTT Heparin Anti-Xa Level ABG pH 7.469 H POC ABG pCO2 POC ABG pO2 ABG Hemoglobin 10.4 L ABG Oxyhemoglobin ABG Sodium 146.2 H ABG Potassium ABG Chloride 109.0 H ABG Glucose 155 H Carboxyhemoglobin Sodium Potassium Chloride BUN Creatinine Glucose POC Glucose 131 H Lactic Acid Calcium Phosphorus AST ALT Troponin T C-Reactive Protein Albumin HDL Cholesterol Arterial Blood Glucose 155 H Arterial Blood Ionized Calcium Urine WBC (Auto) 09/30/20 09/30/20 10/01/20 15:05 17:37 00:29 WBC Hgb Hct MCV MCH RDW Lymph % (Auto) [place] % (Auto) Lymph # (Auto) [place] # (Auto) Seg Neutrophils % Seg Neutrophils # APTT Heparin Anti-Xa Level ABG pH POC ABG pCO2 POC ABG pO2 ABG Hemoglobin ABG Oxyhemoglobin ABG Sodium ABG Potassium ABG Chloride ABG Glucose Carboxyhemoglobin Sodium Potassium Chloride 109.1 H BUN 18 H Creatinine 1.4 H Glucose 122 H POC Glucose 127 H 119 H Lactic Acid Calcium Phosphorus 2.00 L AST ALT Troponin T C-Reactive Protein Albumin HDL Cholesterol Arterial Blood Glucose Arterial Blood Ionized Calcium Urine WBC (Auto) 10/01/20 10/01/20 10/01/20 04:12 05:56 05:56 WBC 14.2 H Hgb 9.7 L Hct MCV 78 L MCH 23 L RDW 21.1 H Lymph % (Auto) [place] % (Auto) Lymph # (Auto) [place] # (Auto) Seg Neutrophils % Seg Neutrophils # APTT Heparin Anti-Xa Level ABG pH POC ABG pCO2 POC ABG pO2 73.0 L ABG Hemoglobin 10.0 L ABG Oxyhemoglobin 93.7 L ABG Sodium 146.4 H ABG Potassium ABG Chloride 110.0 H ABG Glucose 124 H Carboxyhemoglobin 0.3 L Sodium 147 H Potassium Chloride 109.6 H BUN Creatinine Glucose 109 H POC Glucose Lactic Acid Calcium Phosphorus AST ALT Troponin T C-Reactive Protein Albumin HDL Cholesterol Arterial Blood Glucose 124 H Arterial Blood Ionized Calcium Urine WBC (Auto) 10/01/20 10/01/20 10/02/20 19:21 23:17 05:27 WBC Hgb Hct MCV MCH RDW Lymph % (Auto) [place] % (Auto) Lymph # (Auto) [place] # (Auto) Seg Neutrophils % Seg Neutrophils # APTT Heparin Anti-Xa Level ABG pH POC ABG pCO2 POC ABG pO2 ABG Hemoglobin ABG Oxyhemoglobin ABG Sodium ABG Potassium ABG Chloride ABG Glucose Carboxyhemoglobin Sodium Potassium Chloride BUN Creatinine Glucose POC Glucose 126 H 160 H 121 H Lactic Acid Calcium Phosphorus AST ALT Troponin T C-Reactive Protein Albumin HDL Cholesterol Arterial Blood Glucose Arterial Blood Ionized Calcium Urine WBC (Auto) 10/02/20 10/02/20 10/02/20 06:48 06:48 11:51 WBC 14.2 H Hgb 9.6 L Hct MCV MCH 25 L RDW 21.7 H Lymph % (Auto) [place] % (Auto) Lymph # (Auto) [place] # (Auto) Seg Neutrophils % Seg Neutrophils # APTT Heparin Anti-Xa Level ABG pH POC ABG pCO2 POC ABG pO2 ABG Hemoglobin ABG Oxyhemoglobin ABG Sodium ABG Potassium ABG Chloride ABG Glucose Carboxyhemoglobin Sodium 147 H Potassium Chloride 110.4 H BUN Creatinine Glucose 134 H POC Glucose 121 H Lactic Acid Calcium Phosphorus 2.20 L AST ALT Troponin T C-Reactive Protein Albumin HDL Cholesterol Arterial Blood Glucose Arterial Blood Ionized Calcium Urine WBC (Auto) Chest x-ray: image reviewed (ETT migrating into thoracic inlet) Allied health notes reviewed: nursing
--- NOTE | 2020-10-02 16:19 | Magnetic Resonance Report ---
MRI BRAIN WITHOUT CONTRAST INDICATION / CLINICAL INFORMATION: STROKE, POST CARDIAC ARREST. TECHNIQUE: Multiplanar, multisequence MR images of the brain were obtained. COMPARISON: Head CT on 09/25/2020 FINDINGS: BRAIN / INTRACRANIAL CONTENTS: There is diffuse restricted diffusion in the cerebral white matter and cortex with associated mild sulcal effacement. There is also an acute lacunar infarct in the right p aracentral lesia. There is no associated hemorrhage or adverse mass effect. CRANIOCERVICAL JUNCTION: No significant abnormality. VASCULAR FLOW-VOIDS: No significant abnormality. ORBITS: No significant abnormality of visualized orbits. SINUSES / MASTOIDS: No significant abnormality of visualized sinuses and mastoid air cells. ADDITIONAL FINDINGS: None. IMPRESSION: 1. Diffuse cerebral restricted diffusion consistent with global anoxic brain injury. No associated he morrhage or herniation. 2. Additional small acute lacunar infarct in the right paracentral lesia. Signer Name: Av Miguel MD Signed: 10/02/2020 4:14 PM Workstation Name: [id number]
[2020-10-02] MEDS: SODIUM CHLORIDE 0.9% 1000 ML 1,000 ML IV SCH ×2 (19:17→21:44)
--- NOTE | 2020-10-02 20:17 | Progress Note ---
<TABITHACHANTELLLaci - Last Filed: 10/02/20 20:14> Assessment and Plan Assessment and plan: This is a 45-year-old female with OHS and GERD who presented s/p cardiac arrest S/p cardiac arrest Global anoxic brain injury Small acute lacunar infarct in the right lesia Acute hypoxic respiratory failure NSTEMI Sepsis Leukocytosis Lactic acidosis Pneumonia Seizure disorder Obesity GERD -[facility], neurology, cardiology, PT consulted, patient recommendations -09/25 CTA chest shows no CT evidence of pulmonary embolism, consolidative changes within both dependent lungs may be due to aspiration -09/25 CT head shows no evidence of acute abnormality, no evidence of acute ischemic injury, hemorrhage, mass affect -09/25 echocardiogram shows left ventricular mildly dilated, left ventricle systolic function severely decreased, left ventricular ejection fraction is 70 decreased, severe global hypokinesis of the left ventricle, LVEF 20 to 25% -09/26 CXR shows slight interval worsening of bilateral parenchymal disease also be secondary to pneumonia possibly aspiration pneumonia -09/27 CXR shows much improved appearance of the chest with improving bilateral pulmonary opacities -09/27 EEG shows significant abnormal record with low voltage 2-400 noted throughout this recording, admixed with low voltage fast beta activity noted frontally, findings suggestive of possible cortical dysfunction and/or encephalopathy and/or post cardiac arrest, possibility of post ictal stage cannot be totally excluded -10/02 MRI showed diffuse cerebral restricted diffusion consistent with global anoxic brain injury, no associated hemorrhage or herniation and additional small acute lacunar infarct in the right lesia -10/01 BLE Doppler ultrasound pending -TF, ssi, accucheck q6 -Heparin drip -Aspirin, BB, ANNIE -Keppra -Seizure/aspiration precautions -Ativan as needed -As needed labetalol -Trend CBC, BMP DVT/GI prophylaxis: Pepcid, systemic anticoagulation with heparin drip, SCDs to bilateral directions while in bed Disposition: ICU, awaiting family decision about goals of care The high probability of a clinically significant, sudden or life threatening deterioration of the [cardiac, pulmonary, renal, neuro] system(s) required my full and direct attention, intervention and personal management. The aggregate critical care time was [35] minutes. This time is in addition to time spent performing reported procedures but includes the following: [x] Data Review and interpretation [x] Patient assessment and monitoring of vital signs [x] Documentation [x] Medication orders and management History Interval history: 45-year-old female with obesity hypoventilation syndrome and GERD who presented to the emergency department on 09/30 s/p cardiac arrest via EMS. Per EMS staff they were notified for shortness of breath and upon arrival patient was found to be in distress and subsequently went into cardiac arrest and she was treated in accordance to ACLS protocol and intubated in the field and transported to [facility]. Evaluation in the emergency department upon arrival to the emergency department patient was found to have persistent hypoxic respiratory failure and was maintained on ventilator support. Work-up revealed sepsis, pneumonia, seizure disorder, metabolic acidosis as well as NSTEMI. Cardiology, neurology, CCM were consulted. 09/26/2020: Patient remains unresponsive, intubated on ventilatory support. 09/27/2020; patient remains unresponsive, intubated on ventilatory support Follow neurology evaluation and recommendations Very poor prognosis, I spoke with patient's aunt Ms. Debora Minor 09/26/2020 About patient's condition , tests and reports and very poor prognosis. She verbalized understanding. I discussed the CODE STATUS Full code at this point 09/28/2020 S/p cardiac arrest outside the facility Intubated and unresponsive We will discuss CODE STATUS again 09/29/2020 S/p cardiac arrest Intubated and unresponsive Will request ethics consult and family meeting again regarding the prognosis and outcome 09/30/20 Discussed with family They will decide about DNR--amenable 10/01: Patient has persistent leukocytosis and hyperchloremia. Patient now has hypernatremia and renal function has improved to CR/BUN 1.1/15 from 1.418. Patient has hypophosphatemia which was repleted yesterday and we will obtain a.m. labs. Patient has MRI brain pending. Family updated by neurology over the phone and [employer] at bedside. Patient niece was at bedside today and she will defer goals of care decision after MRI results. EEG findings were explained. According to her the patient was in found to be unresponsive by family and was given bystander CPR before arrival of EMS. 10/02: Patient received MRI brain today which showed diffuse cerebral restricted diffusion consistent with global anoxic brain injury, no associated hemorrhage or herniation and additional small acute lacunar infarct in the right paracentral lesia. Patient was hypotensive today and received a bolus of fluids with recovery. At the time examination patient on a CPAP trial of 09/26 and on 25% FiO2. Today we removed the patient's Grace catheter, discontinued bowel regimen and ask RN to follow-up on bilateral lower extremity Doppler ultrasounds. Patient noted to be hypernatremic and free water flushes were increased. Hospitalist Physical - Constitutional Vitals: Temp Pulse Resp BP Pulse Ox 98.9 F 59 L 23 112/31 97 10/02/20 12:00 10/02/20 19:00 10/02/20 19:00 10/02/20 19:00 10/02/20 19:00 General appearance: Present: no acute distress, well-nourished, other (not res ponsive ) - EENT Eyes: Absent: PERRL, EOM intact ENT: clear oral mucosa - Neck Neck: Absent: masses or JVD, cervical LAD - Respiratory Respiratory effort: normal Respiratory: bilateral: diminished - Cardiovascular Rhythm: regular Heart Sounds: Present: S1 & S2. Absent: systolic murmur, diastolic murmur - Extremities Extremities: no ischemia, pulses intact, pulses symmetrical, normal temperature, normal color Peripheral Pulses: within normal limits - Abdominal General gastrointestinal: soft, non-tender, non-distended, normal bowel sounds - Integumentary Integumentary: Present: warm, dry - Psychiatric Psychiatric: other (not interactive) - Neurologic Neurologic: other (Pupils nonreactive to light, no response to painful stimuli, does not follow commands, does not track/focus, minimal cough/gag) HEART Score - HEART Score Troponin: Troponin T < 0.010 ng/mL (0.00-0.029) 10/02/20 06:48 Results - Labs CBC & Chem 7: 10/02/20 06:48 10/02/20 06:48 Labs: Laboratory Last Values WBC 14.2 K/mm3 (4.5-11.0) H 10/02/20 06:48 RBC 3.92 M/mm3 (3.65-5.03) 10/02/20 06:48 Hgb 9.6 gm/dl (10.1-14.3) L 10/02/20 06:48 Hct 31.0 % (30.3-42.9) 10/02/20 06:48 MCV 79 fl (79-97) 10/02/20 06:48 MCH 25 pg (28-32) L 10/02/20 06:48 MCHC 31 % (30-34) 10/02/20 06:48 RDW 21.7 % (13.2-15.2) H 10/02/20 06:48 Plt Count 325 K/mm3 (140-440) 10/02/20 06:48 Lymph % (Auto) 20.1 % (13.4-35.0) 09/30/20 15:05 [place] % (Auto) 13.5 % (0.0-7.3) H 09/30/20 15:05 Eos % (Auto) 0.4 % (0.0-4.3) 09/30/20 15:05 Baso % (Auto) 1.0 % (0.0-1.8) 09/30/20 15:05 Lymph # (Auto) 2.5 K/mm3 (1.2-5.4) 09/30/20 15:05 [place] # (Auto) 1.7 K/mm3 (0.0-0.8) H 09/30/20 15:05 Eos # (Auto) 0.0 K/mm3 (0.0-0.4) 09/30/20 15:05 Baso # (Auto) 0.1 K/mm3 (0.0-0.1) 09/30/20 15:05 Seg Neutrophils % 65.0 % (40.0-70.0) 09/30/20 15:05 Seg Neutrophils # 8.1 K/mm3 (1.8-7.7) H 09/30/20 15:05 PT 13.7 Sec. (12.2-14.9) 09/25/20 18:15 INR 1.00 (0.87-1.13) 09/25/20 18:15 APTT 21.1 Sec. (24.2-36.6) L 09/25/20 18:15 Heparin Anti-Xa Level 0.61 U.I./ml (0.3-0.7) 10/01/20 19:40 ABG pH 7.424 (7.320-7.450) 10/01/20 04:12 POC ABG pCO2 41.6 mmHg (32.0-48.0) 10/01/20 04:12 POC ABG pO2 73.0 mmHg (83-108) L 10/01/20 04:12 POC ABG HCO3 26.6 10/01/20 04:12 ABG O2 Saturation 94.3 (0-100) 10/01/20 04:12 POC ABG Base Excess 2.0 10/01/20 04:12 ABG Hemoglobin 10.0 (12.0-17.5) L 10/01/20 04:12 ABG Oxyhemoglobin 93.7 (94-98) L 10/01/20 04:12 ABG Methemoglobin 0.3 (0.0-1.5) 10/01/20 04:12 ABG Sodium 146.4 mmol/L (136.0-145.0) H 10/01/20 04:12 ABG Potassium 3.8 mmol/L (3.40-4.50) 10/01/20 04:12 ABG Chloride 110.0 mmol/L (98-107) H 10/01/20 04:12 ABG Glucose 124 mg/dL (65-95) H 10/01/20 04:12 Carboxyhemoglobin 0.3 (0.5-1.5) L 10/01/20 04:12 FiO2 % 25.0 10/01/20 04:12 Sodium 147 mmol/L (137-145) H 10/02/20 06:48 Potassium 4.1 mmol/L (3.6-5.0) 10/02/20 06:48 Chloride 110.4 mmol/L (98-107) H 10/02/20 06:48 Carbon Dioxide 28 mmol/L (22-30) 10/02/20 06:48 Anion Gap 13 mmol/L 10/02/20 06:48 BUN 15 mg/dL (7-17) 10/02/20 06:48 Creatinine 0.8 mg/dL (0.6-1.2) 10/02/20 06:48 Estimated GFR > 60 ml/min 10/02/20 06:48 BUN/Creatinine Ratio 19 % 10/02/20 06:48 Glucose 134 mg/dL (65-100) H 10/02/20 06:48 POC Glucose 107 mg/dL (70-105) H 10/02/20 17:19 Lactic Acid 1.00 mmol/L (0.7-2.0) 09/27/20 04:41 Calcium 9.7 mg/dL (8.4-10.2) 10/02/20 06:48 Phosphorus 2.20 mg/dL (2.5-4.5) L 10/02/20 06:48 Magnesium 2.20 mg/dL (1.7-2.3) 10/02/20 06:48 Total Bilirubin 0.20 mg/dL (0.1-1.2) 09/28/20 05:02 AST 129 units/L (5-40) H 09/28/20 05:02 ALT 60 units/L (7-56) H 09/28/20 05:02 Alkaline Phosphatase 84 units/L (35-129) 09/28/20 05:02 Troponin T < 0.010 ng/mL (0.00-0.029) 10/02/20 06:48 C-Reactive Protein 4.30 mg/dL (0.00-1.30) H 09/26/20 15:45 Total Protein 6.9 g/dL (6.3-8.2) 09/28/20 05:02 Albumin 3.7 g/dL (3.9-5) L 09/28/20 05:02 Albumin/Globulin Ratio 1.2 % 09/28/20 05:02 Triglycerides 40 mg/dL (2-149) 09/25/20 23:13 Cholesterol 132 mg/dL (50-199) 09/25/20 23:13 LDL Cholesterol Direct 66 mg/dL (50-130) 09/25/20 23:13 HDL Cholesterol 60 mg/dL (40-59) H 09/25/20 23:13 Cholesterol/HDL Ratio 2.20 % 09/25/20 23:13 Procalcitonin 0.31 ng/mL (<0.15) 09/26/20 15:45 Arterial Blood Glucose 124 mg/dL (65-95) H 10/01/20 04:12 Arterial Blood Ionized Calcium 4.8 mg/dL (4.6-5.3) 10/01/20 04:12 Urine Color Yellow (Yellow) 09/25/20 17:19 Urine Turbidity Cloudy (Clear) 09/25/20 17:19 Urine pH 7.0 (5.0-7.0) 09/25/20 17:19 Ur Specific [place] 1.012 (1.003-1.030) 09/25/20 17:19 Urine Protein >500 mg/dL (Negative) 09/25/20 17:19 Urine Glucose (UA) 50 mg/dL (Negative) 09/25/20 17:19 Urine Ketones Neg mg/dL (Negative) 09/25/20 17:19 Urine Blood Sm (Negative) 09/25/20 17:19 Urine Nitrite Neg (Negative) 09/25/20 17:19 Urine Bilirubin Neg (Negative) 09/25/20 17:19 Urine Urobilinogen < 2.0 mg/dL (<2.0) 09/25/20 17:19 Ur Leukocyte Esterase Neg (Negative) 09/25/20 17:19 Urine WBC (Auto) 14.0 /HPF (0.0-6.0) H 09/25/20 17:19 Urine RBC (Auto) 101.0 /HPF (0.0-6.0) 09/25/20 17:19 U Epithel Cells (Auto) 1.0 /HPF (0-13.0) 09/25/20 17:19 Urine Bacteria (Auto) 1+ /HPF (Negative) 09/25/20 17:19 Urine HCG, Qual Negative (Negative) 09/25/20 17:19 Urine Opiates Screen Presumptive negative 09/25/20 17:19 Urine Methadone Screen Presumptive negative 09/25/20 17:19 Ur Barbiturates Screen Presumptive negative 09/25/20 17:19 Ur Phencyclidine Scrn Presumptive negative 09/25/20 17:19 Ur Amphetamines Screen Presumptive negative 09/25/20 17:19 U Benzodiazepines Scrn Presumptive negative 09/25/20 17:19 Urine Cocaine Screen Presumptive negative 09/25/20 17:19 U Marijuana (THC) Screen Presumptive negative 09/25/20 17:19 Drugs of Abuse Note Disclamer 09/25/20 17:19 Coronavirus (PCR) Negative (Negative) 09/26/20 Unknown Blood Type B POSITIVE 09/25/20 19:00 Antibody Screen Negative 09/25/20 19:00 Grace/IV: Voiding Method Indwelling Catheter Active Medications - Current Medications Current Medications: Generic Name Dose Route Start Last Admin Trade Name Freq PRN Reason Stop Dose Admin Acetaminophen 650 mg 09/25/20 18:45 Acetaminophen 650 Mg Rect Supp PA Q6H PRN Pain MILD(1-3)/Fever >100.5/RUIZ Acetaminophen 650 mg 09/25/20 18:49 10/01/20 15:54 Acetaminophen 325 Mg Tab PO 650 mg Q6H PRN Administration Pain, Mild (1-3) Albuterol 2.5 mg 09/25/20 18:45 Albuterol 2.5 Mg/3 Ml Nebu IH Q3HRT PRN Shortness Of Breath Lipase/Protease/Amylase 1 each 09/27/20 13:01 Lipase 10,500/Protease 25,000/Amylase 43,750 (Units) Dr Davis FEEDTUBE PRN PRN For Clogged Feeding Tube Aspirin 81 mg 10/01/20 10:00 10/02/20 09:43 Aspirin 81 Mg Tab Chew PO 81 mg QDAY RAMESH Administration Carvedilol 12.5 mg 10/02/20 22:00 Carvedilol 12.5 Mg Tab PO BID RAMESH Famotidine 20 mg 09/30/20 10:00 10/02/20 09:43 Famotidine 20 Mg Tab PO 20 mg BID RAMESH Administration Hydromorphone HCl 0.25 mg 09/25/20 18:49 09/30/20 14:05 Hydromorphone 1 Mg/1 Ml Inj IV 0.25 mg Q4H PRN Administration Pain, Moderate (4-6) Hydrophilic Ointment 1 applic 09/25/20 16:52 Lip Therapy Vaseline TP Q2HR PRN Dry Lips Heparin Sodium/Sodium Chloride 25,000 unit in 500 mls @ 20 mls/hr 09/25/20 21:00 10/01/20 15:54 Heparin/ 0.45% Nacl-25,000 Unit/500 Ml IV 900 units/hr TITRATE RAMESH 18 mls/hr Administration Protocol 1,000 UNITS/HR Propofol 1,000 mg in 100 mls @ 3.201 mls/hr 09/26/20 14:00 09/28/20 19:01 Diprivan 10 Mg/Ml IV 0 mcg/kg/min TITR RAMESH 0 mls/hr Titration Protocol 5 MCG/KG/MIN Sodium Chloride 1,000 mls @ 100 mls/hr 10/02/20 18:30 10/02/20 19:17 Nacl 0.9% 1000 Ml IV 100 mls/hr DIRECT RAMESH Administration Labetalol HCl 10 mg 09/27/20 12:51 09/30/20 14:02 Labetalol 20 Mg/4 Ml Inj IV 10 mg Q4H PRN Administration Blood Pressure Levetiracetam 750 mg 09/30/20 22:00 10/02/20 09:42 Levetiracetam 500 Mg/5 Ml Oral Liqd PO 750 mg BID RAMESH Administration Lorazepam 2 mg 09/26/20 13:45 Lorazepam 2 Mg/Ml Vial IV Q4H PRN Seizures Losartan Potassium 50 mg 10/03/20 10:00 Losartan 50 Mg Tab PO QDAY RAMESH Metoclopramide HCl 10 mg 09/30/20 16:33 09/30/20 20:20 Metoclopramide 10 Mg/2 Ml Inj IV 10 mg Q6H PRN Administration Nausea And Vomiting Multi-Ingred Cream/Lotion/Oil/Oint 1 applic 09/25/20 16:52 09/28/20 22:02 Mineral Oil/Petrolatum, White Ophth Oint 3.5 Gm OU 1 applic Q4HR PRN Administration Dry Eye(s) Ondansetron HCl 4 mg 09/30/20 01:25 09/30/20 10:01 Ondansetron 4 Mg/2 Ml Inj IV 4 mg Q8H PRN Administration Nausea And Vomiting Scopolamine 1 each 10/01/20 16:00 10/02/20 09:43 Scopolamine Transdermal Patch 72 Hr TD 1 each Q72HR RAMESH Administration Simple Syrup 15 ml 09/27/20 13:01 Simple Syrup 15 Ml FEEDTUBE PRN PRN Hypoglycemia Simple Syrup 30 ml 09/27/20 13:01 09/29/20 06:13 Simple Syrup 15 Ml FEEDTUBE 30 ml PRN PRN Administration Hypoglycemia Sodium Bicarbonate 325 mg 09/27/20 13:01 Sodium Bicarbonate 325 Mg Tab FEEDTUBE PRN PRN For Clogged Feeding Tube Sodium Chloride 10 ml 09/25/20 22:00 10/02/20 09:42 Sodium Chloride 0.9% 10 Ml Flush Syringe IV 10 ml BID RAMESH Administration Sodium Chloride 10 ml 09/25/20 18:45 Sodium Chloride 0.9% 10 Ml Flush Syringe IV PRN PRN LINE FLUSH Nutrition/Malnutrition Assess - Dietary Evaluation Nutrition/Malnutrition Findings: Nutrition Notes Start: 09/27/20 12:48 Freq: Status: Active Protocol: Document 09/30/20 12:00 (Rec: 09/30/20 12:04 [email or web address]) Nutrition Notes Initial or Follow up Assessment Current Diagnosis Sepsis,Respiratory Failure Other Pertinent Diagnosis cardiac arrest, SOB. NSTEMI, pneu, UTI, GERD Current Diet Vital AF 1.2 at 55 ml/hr Labs/Tests Reviewed Pertinent Medications Zofran Height 5 ft 5 in Weight 106.7 kg [place] Body Weight (kg) 56.81 BMI 39.1 Weight Status Obese Subjective/Other Information FU for TF tolerance. Observed TF running at goal rate. Pt tolerating. Percent of energy/protein needs met: 99%/87% Burn Absent Trauma Absent Current % PO Negligible Minimum of two criteria No physical signs of malnutrition #1 Nutrition Diagnosis Inadequate oral intake Diagnosis Progress(for reassessment Continues documentation) Is patient on ventilator? Yes Is Patient Ambulatory and/or Out of Bed No REE-([place]. Jeor-confined to bed) 2051.588 Kcal/Kg value to use for calculation 15 Approximate Energy Requirements Using 1601 kcal/Kg Calculation Used for Recommendations Kcal/kg Additional Notes protein needs: >114 (> 2g/ kgIBW) fluid needs: 1 ml/kcal or per MD order Nutrition Intervention Change Diet Order: Continue Nutrition Support: Vital AF at 55 ml/hr with a free water flush of 85 ml q4h Kcal 1,584 Protein (gm) 99 Fluid (mL) 1,071 Goal #1 meet at least 75% of kcal and protein needs via TF Anticipated Discharge Needs: unable to determine at this time Follow-Up By: 10/02/20 Additional Comments FU for TF tolerance <MAX FERMIN - Last Filed: 10/03/20 18:01> Assessment and Plan Assessment and plan: Patient seen and examined, agree with assessment and plan as outlined by nurse practitioner above. MRI shows anoxic brain injury. Spoke with the family pertaining to this new diagnosis, prognosis is poor. Family will need to make a decision pertaining to patient's continued care. Neurology on board, will assess MRI and give expert opinion as to patient's prognosis also. Hospitalist Physical - Constitutional Vitals: Temp Pulse Resp BP Pulse Ox 100.8 F H 76 16 112/42 97 10/03/20 16:00 10/03/20 16:30 10/03/20 16:30 10/03/20 16:30 10/03/20 16:30 HEART Score - HEART Score Troponin: Troponin T < 0.010 ng/mL (0.00-0.029) 10/02/20 06:48 Results - Labs CBC & Chem 7: 10/03/20 07:24 10/03/20 07:24 Labs: Laboratory Last Values WBC 12.9 K/mm3 (4.5-11.0) H 10/03/20 07:24 RBC 3.73 M/mm3 (3.65-5.03) 10/03/20 07:24 Hgb 8.9 gm/dl (10.1-14.3) L 10/03/20 07:24 Hct 29.6 % (30.3-42.9) L 10/03/20 07:24 MCV 79 fl (79-97) 10/03/20 07:24 MCH 24 pg (28-32) L 10/03/20 07:24 MCHC 30 % (30-34) 10/03/20 07:24 RDW 21.9 % (13.2-15.2) H 10/03/20 07:24 Plt Count 366 K/mm3 (140-440) 10/03/20 07:24 Lymph % (Auto) 20.1 % (13.4-35.0) 09/30/20 15:05 [place] % (Auto) 13.5 % (0.0-7.3) H 09/30/20 15:05 Eos % (Auto) 0.4 % (0.0-4.3) 09/30/20 15:05 Baso % (Auto) 1.0 % (0.0-1.8) 09/30/20 15:05 Lymph # (Auto) 2.5 K/mm3 (1.2-5.4) 09/30/20 15:05 [place] # (Auto) 1.7 K/mm3 (0.0-0.8) H 09/30/20 15:05 Eos # (Auto) 0.0 K/mm3 (0.0-0.4) 09/30/20 15:05 Baso # (Auto) 0.1 K/mm3 (0.0-0.1) 09/30/20 15:05 Seg Neutrophils % 65.0 % (40.0-70.0) 09/30/20 15:05 Seg Neutrophils # 8.1 K/mm3 (1.8-7.7) H 09/30/20 15:05 PT 13.7 Sec. (12.2-14.9) 09/25/20 18:15 INR 1.00 (0.87-1.13) 09/25/20 18:15 APTT 21.1 Sec. (24.2-36.6) L 09/25/20 18:15 Heparin Anti-Xa Level 0.32 U.I./ml (0.3-0.7) 10/02/20 19:58 ABG pH 7.424 (7.320-7.450) 10/01/20 04:12 POC ABG pCO2 41.6 mmHg (32.0-48.0) 10/01/20 04:12 POC ABG pO2 73.0 mmHg (83-108) L 10/01/20 04:12 POC ABG HCO3 26.6 10/01/20 04:12 ABG O2 Saturation 94.3 (0-100) 10/01/20 04:12 POC ABG Base Excess 2.0 10/01/20 04:12 ABG Hemoglobin 10.0 (12.0-17.5) L 10/01/20 04:12 ABG Oxyhemoglobin 93.7 (94-98) L 10/01/20 04:12 ABG Methemoglobin 0.3 (0.0-1.5) 10/01/20 04:12 ABG Sodium 146.4 mmol/L (136.0-145.0) H 10/01/20 04:12 ABG Potassium 3.8 mmol/L (3.40-4.50) 10/01/20 04:12 ABG Chloride 110.0 mmol/L (98-107) H 10/01/20 04:12 ABG Glucose 124 mg/dL (65-95) H 10/01/20 04:12 Carboxyhemoglobin 0.3 (0.5-1.5) L 10/01/20 04:12 FiO2 % 25.0 10/01/20 04:12 Sodium 147 mmol/L (137-145) H 10/03/20 07:24 Potassium 4.2 mmol/L (3.6-5.0) 10/03/20 07:24 Chloride 110.4 mmol/L (98-107) H 10/03/20 07:24 Carbon Dioxide 29 mmol/L (22-30) 10/03/20 07:24 Anion Gap 12 mmol/L 10/03/20 07:24 BUN 13 mg/dL (7-17) 10/03/20 07:24 Creatinine 0.8 mg/dL (0.6-1.2) 10/03/20 07:24 Estimated GFR > 60 ml/min 10/03/20 07:24 BUN/Creatinine Ratio 16 % 10/03/20 07:24 Glucose 128 mg/dL (65-100) H 10/03/20 07:24 POC Glucose 102 mg/dL (70-105) 10/03/20 11:12 Lactic Acid 1.00 mmol/L (0.7-2.0) 09/27/20 04:41 Calcium 9.6 mg/dL (8.4-10.2) 10/03/20 07:24 Phosphorus 2.20 mg/dL (2.5-4.5) L 10/02/20 06:48 Magnesium 2.20 mg/dL (1.7-2.3) 10/02/20 06:48 Total Bilirubin 0.20 mg/dL (0.1-1.2) 09/28/20 05:02 AST 129 units/L (5-40) H 09/28/20 05:02 ALT 60 units/L (7-56) H 09/28/20 05:02 Alkaline Phosphatase 84 units/L (35-129) 09/28/20 05:02 Troponin T < 0.010 ng/mL (0.00-0.029) 10/02/20 06:48 C-Reactive Protein 4.30 mg/dL (0.00-1.30) H 09/26/20 15:45 Total Protein 6.9 g/dL (6.3-8.2) 09/28/20 05:02 Albumin 3.7 g/dL (3.9-5) L 09/28/20 05:02 Albumin/Globulin Ratio 1.2 % 09/28/20 05:02 Triglycerides 40 mg/dL (2-149) 09/25/20 23:13 Cholesterol 132 mg/dL (50-199) 09/25/20 23:13 LDL Cholesterol Direct 66 mg/dL (50-130) 09/25/20 23:13 HDL Cholesterol 60 mg/dL (40-59) H 09/25/20 23:13 Cholesterol/HDL Ratio 2.20 % 09/25/20 23:13 Procalcitonin 0.31 ng/mL (<0.15) 09/26/20 15:45 Arterial Blood Glucose 124 mg/dL (65-95) H 10/01/20 04:12 Arterial Blood Ionized Calcium 4.8 mg/dL (4.6-5.3) 10/01/20 04:12 Urine Color Yellow (Yellow) 09/25/20 17:19 Urine Turbidity Cloudy (Clear) 09/25/20 17:19 Urine pH 7.0 (5.0-7.0) 09/25/20 17:19 Ur Specific [place] 1.012 (1.003-1.030) 09/25/20 17:19 Urine Protein >500 mg/dL (Negative) 09/25/20 17:19 Urine Glucose (UA) 50 mg/dL (Negative) 09/25/20 17:19 Urine Ketones Neg mg/dL (Negative) 09/25/20 17:19 Urine Blood Sm (Negative) 09/25/20 17:19 Urine Nitrite Neg (Negative) 09/25/20 17:19 Urine Bilirubin Neg (Negative) 09/25/20 17:19 Urine Urobilinogen < 2.0 mg/dL (<2.0) 09/25/20 17:19 Ur Leukocyte Esterase Neg (Negative) 09/25/20 17:19 Urine WBC (Auto) 14.0 /HPF (0.0-6.0) H 09/25/20 17:19 Urine RBC (Auto) 101.0 /HPF (0.0-6.0) 09/25/20 17:19 U Epithel Cells (Auto) 1.0 /HPF (0-13.0) 09/25/20 17:19 Urine Bacteria (Auto) 1+ /HPF (Negative) 09/25/20 17:19 Urine HCG, Qual Negative (Negative) 09/25/20 17:19 Urine Opiates Screen Presumptive negative 09/25/20 17:19 Urine Methadone Screen Presumptive negative 09/25/20 17:19 Ur Barbiturates Screen Presumptive negative 09/25/20 17:19 Ur Phencyclidine Scrn Presumptive negative 09/25/20 17:19 Ur Amphetamines Screen Presumptive negative 09/25/20 17:19 U Benzodiazepines Scrn Presumptive negative 09/25/20 17:19 Urine Cocaine Screen Presumptive negative 09/25/20 17:19 U Marijuana (THC) Screen Presumptive negative 09/25/20 17:19 Drugs of Abuse Note Disclamer 09/25/20 17:19 Coronavirus (PCR) Negative (Negative) 09/26/20 Unknown Blood Type B POSITIVE 09/25/20 19:00 Antibody Screen Negative 09/25/20 19:00 Grace/IV: Voiding Method Indwelling Catheter Active Medications - Current Medications Current Medications: Generic Name Dose Route Start Last Admin Trade Name Freq PRN Reason Stop Dose Admin Acetaminophen 650 mg 09/25/20 18:45 Acetaminophen 650 Mg Rect Supp PA Q6H PRN Pain MILD(1-3)/Fever >100.5/RUIZ Acetaminophen 650 mg 09/25/20 18:49 10/01/20 15:54 Acetaminophen 325 Mg Tab PO 650 mg Q6H PRN Administration Pain, Mild (1-3) Albuterol 2.5 mg 09/25/20 18:45 Albuterol 2.5 Mg/3 Ml Nebu IH Q3HRT PRN Shortness Of Breath Lipase/Protease/Amylase 1 each 09/27/20 13:01 Lipase 10,500/Protease 25,000/Amylase 43,750 (Units) Dr Davis FEEDTUBE PRN PRN For Clogged Feeding Tube Aspirin 81 mg 10/01/20 10:00 10/03/20 09:45 Aspirin 81 Mg Tab Chew PO 81 mg QDAY RAMESH Administration Carvedilol 12.5 mg 10/02/20 22:00 10/03/20 09:45 Carvedilol 12.5 Mg Tab PO 12.5 mg BID RAMESH Administration Famotidine 20 mg 09/30/20 10:00 10/03/20 09:46 Famotidine 20 Mg Tab PO 20 mg BID RAMESH Administration Hydromorphone HCl 0.25 mg 09/25/20 18:49 09/30/20 14:05 Hydromorphone 1 Mg/1 Ml Inj IV 0.25 mg Q4H PRN Administration Pain, Moderate (4-6) Hydrophilic Ointment 1 applic 09/25/20 16:52 Lip Therapy Vaseline TP Q2HR PRN Dry Lips Heparin Sodium/Sodium Chloride 25,000 unit in 500 mls @ 20 mls/hr 09/25/20 21:00 10/02/20 21:45 Heparin/ 0.45% Nacl-25,000 Unit/500 Ml IV 900 units/hr TITRATE RAMESH 18 mls/hr Administration Protocol 1,000 UNITS/HR Propofol 1,000 mg in 100 mls @ 3.201 mls/hr 09/26/20 14:00 09/28/20 19:01 Diprivan 10 Mg/Ml IV 0 mcg/kg/min TITR RAMESH 0 mls/hr Titration Protocol 5 MCG/KG/MIN Sodium Chloride 1,000 mls @ 100 mls/hr 10/02/20 18:30 10/03/20 09:46 Nacl 0.9% 1000 Ml IV 100 mls/hr DIRECT RAMESH Administration Sodium Phosphate 15 mmol/ 155 mls @ 40 mls/hr 10/03/20 17:00 Sodium Chloride IV 10/03/20 20:52 Q4H ONE Labetalol HCl 10 mg 09/27/20 12:51 09/30/20 14:02 Labetalol 20 Mg/4 Ml Inj IV 10 mg Q4H PRN Administration Blood Pressure Levetiracetam 750 mg 09/30/20 22:00 10/03/20 09:45 Levetiracetam 500 Mg/5 Ml Oral Liqd PO 750 mg BID RAMESH Administration Lorazepam 2 mg 09/26/20 13:45 Lorazepam 2 Mg/Ml Vial IV Q4H PRN Seizures Losartan Potassium 50 mg 10/03/20 10:00 10/03/20 09:45 Losartan 50 Mg Tab PO 50 mg QDAY RAMESH Administration Metoclopramide HCl 10 mg 09/30/20 16:33 09/30/20 20:20 Metoclopramide 10 Mg/2 Ml Inj IV 10 mg Q6H PRN Administration Nausea And Vomiting Multi-Ingred Cream/Lotion/Oil/Oint 1 applic 09/25/20 16:52 09/28/20 22:02 Mineral Oil/Petrolatum, White Ophth Oint 3.5 Gm OU 1 applic Q4HR PRN Administration Dry Eye(s) Ondansetron HCl 4 mg 09/30/20 01:25 09/30/20 10:01 Ondansetron 4 Mg/2 Ml Inj IV 4 mg Q8H PRN Administration Nausea And Vomiting Scopolamine 1 each 10/01/20 16:00 10/02/20 09:43 Scopolamine Transdermal Patch 72 Hr TD 1 each Q72HR RAMESH Administration Simple Syrup 15 ml 09/27/20 13:01 Simple Syrup 15 Ml FEEDTUBE PRN PRN Hypoglycemia Simple Syrup 30 ml 09/27/20 13:01 09/29/20 06:13 Simple Syrup 15 Ml FEEDTUBE 30 ml PRN PRN Administration Hypoglycemia Sodium Bicarbonate 325 mg 09/27/20 13:01 Sodium Bicarbonate 325 Mg Tab FEEDTUBE PRN PRN For Clogged Feeding Tube Sodium Chloride 10 ml 09/25/20 22:00 10/03/20 09:46 Sodium Chloride 0.9% 10 Ml Flush Syringe IV 10 ml BID RAMESH Administration Sodium Chloride 10 ml 09/25/20 18:45 Sodium Chloride 0.9% 10 Ml Flush Syringe IV PRN PRN LINE FLUSH Nutrition/Malnutrition Assess - Dietary Evaluation Nutrition/Malnutrition Findings: Nutrition Notes Start: 09/27/20 12:48 Freq: Status: Active Protocol: Document 10/03/20 13:47 ARMANDO (Rec: 10/03/20 13:48 ARMANDO [id number]) Nutrition Notes Initial or Follow up Brief Note Subjective/Other Information Change F/U date to 10/07. Nutrition Intervention Follow-Up By: 10/07/20 Additional Comments F/U: stable TF, vent status
[2020-10-02] MEDS: carvediloL 12.5 MG TAB PO SCH (21:43)
[2020-10-02] MEDS: HEPARIN/ 0.45% NACL DRIP 25,000 UNIT/500 ML BAG IV SCH (21:45)
--- NOTE | 2020-10-02 22:35 | Vascular Lab Report ---
DUPLEX DOPPLER LOWER EXTREMITY VEINS, BILATERAL INDICATION / CLINICAL INFORMATION: dvt. TECHNIQUE: Duplex doppler imaging was performed through the veins of both lower extremities using venous luke angelito and other maneuvers. COMPARISON: None available. FINDINGS: RIGHT COMMON FEMORAL VEIN: Negative. RIGHT FEMORAL VEIN: Negative. RIGHT POPLITEAL VEIN: Negative. RIGHT CALF VEINS: Negative. LEFT COMMON FEMORAL VEIN: Negative. LEFT FEMORAL VEIN: Negative. LEFT POPLITEAL VEIN: Negative. LEFT CALF VEINS: Negative. ADDITIONAL FINDINGS: None. IMPRESSION: 1. No sonographic evidence for DVT in either lower extremity. Signer Name: Rick Garces MD FACAdeline Signed: 10/02/2020 10:30 PM Workstation Name: [email or web address]
[2020-10-03 08:03] LABS: Hematocrit 29.6 % (30.3-42.9); Hemoglobin 8.9 gm/dl (10.1-14.3); Mean Corpuscular HGB Conc 30 % (30-34); Mean Corpuscular Volume 79 fl (79-97); Platelet Count 366 K/mm3 (140-440); Red Blood Count 3.73 M/mm3 (3.65-5.03)
[2020-10-03 08:08] LABS: Red Cell Distribution Width 21.9 % (13.2-15.2)
[2020-10-03 09:03] LABS: BUN/Creatinine Ratio 16; Blood Urea Nitrogen 13 mg/dL (7-17); Calcium 9.6 mg/dL (8.4-10.2); Hemolysis Index 7
--- NOTE | 2020-10-03 09:30 | Progress Note ---
Assessment and Plan S/p cardiac arrest with ROSC * Patient is intubated and unresponsive, currently off sedation. * Seizure activity was noted after ROSC. * MRI brain shows extensive global anoxic injury. We will plan for conservative cardiac management NSTEMI * Twelve-lead shows sinus rhythm with nonspecific T wave abnormalities in anterior leads. No acute ischemic changes. Troponin elevated at time of admission, currently negative x2. Continue to trend CE's. Heart failure reduced ejection fraction in setting of new onset cardiomyopathy * Previous echocardiogram reviewed (10/23/2019): LVEF is 50 to 55%. LV chamber and wall dimensions are normal. Normal LV systolic function. Normal left atrial pressure and diastolic function. RV SF is normal. Mild MR. * Echocardiogram reviewed (09/25/2020): LVEF is 20 to 25%. Left ventricle is mildly dilated. LV SF is severely decreased. Severe global hypokinesis of the left ventricle. RV SF is normal. RVSP is 26 mmHg. * Continue goal-directed therapy with cardioprotective regimen: bASA, Coreg 25 mg BID, losartan 100 mg daily. Allow some degree of physiologic tachycardia in setting of severe cardiomyopathy. DVT Prophylaxis * Heparin gtt, SCDs in place. Patient is currently guarded cardiac status. In setting of global anoxic injury and comorbidities will plan for conservative cardiac management. Nothing further from cardiac standpoint. Will follow on as-needed basis. This patient was seen in conjunction with Dr. Alvarez who agrees with this assessment and plan of care - Patient Problems (1) Dilated cardiomyopathy Current Visit: Yes Status: Acute (2) Cardiac arrest Current Visit: Yes Status: Acute (3) DVT prophylaxis Current Visit: Yes Status: Acute (4) Seizure Current Visit: Yes Status: Acute (5) NSTEMI (non-ST elevated myocardial infarction) Current Visit: Yes Status: Acute Subjective Date of service: 10/03/20 Principal diagnosis: Cardiac arrest; Ac. respiratory failure; Anoxic encephalopathy; PNA; NSTEMI Objective Last Vital Signs Temp 100.2 F H 10/03/20 04:00 Pulse 70 10/03/20 09:00 Resp 25 H 10/03/20 09:00 BP 132/39 10/03/20 09:00 Pulse Ox 98 10/03/20 09:00 - Physical Examination General: Other (intubated) Neck: Positive: neck supple, trachea midline Cardiac: Positive: Reg Rate and Rhythm, S1/S2 Lungs: Positive: Ventilated Respirations Neuro: Positive: Other (Patient intubated ) Abdomen: Positive: Soft Skin: Negative: Rash, Wound Extremities: Present: lower extr. pulses, edema - Labs and Meds CBC 10/03/20 Range/Units 07:24 WBC 12.9 H (4.5-11.0) K/mm3 RBC 3.73 (3.65-5.03) M/mm3 Hgb 8.9 L (10.1-14.3) gm/dl Hct 29.6 L (30.3-42.9) % Plt Count 366 (140-440) K/mm3 Comprehensive Metabolic Panel 10/03/20 Range/Units 07:24 Sodium 147 H (137-145) mmol/L Potassium 4.2 (3.6-5.0) mmol/L Chloride 110.4 H (98-107) mmol/L Carbon Dioxide 29 (22-30) mmol/L BUN 13 (7-17) mg/dL Creatinine 0.8 (0.6-1.2) mg/dL Glucose 128 H (65-100) mg/dL Calcium 9.6 (8.4-10.2) mg/dL - Imaging and Cardiology EKG: report reviewed, image reviewed Echo: report reviewed - Telemetry EKG Rhythm: Sinus Rhythm - EKG Sinus rhythms and dysrhythmias: sinus tachycardia - Allied health notes Allied health notes reviewed: nursing
[2020-10-03] MEDS: carvediloL 12.5 MG TAB PO SCH ×2 (09:45→21:25)
[2020-10-03] MEDS: levETIRAcetam 500 MG/5 ML ORAL LIQD PO SCH ×2 (09:45→21:23)
[2020-10-03] MEDS: ASPIRIN 81 MG TAB CHEW PO SCH (09:45)
[2020-10-03] MEDS: LOSARTAN 50 MG TAB PO SCH (09:45)
[2020-10-03] MEDS: SODIUM CHLORIDE 0.9% 1000 ML 1,000 ML IV SCH ×2 (09:46→18:20)
[2020-10-03] MEDS: FAMOTIDINE 20 MG TAB PO SCH ×2 (09:46→21:23)
--- NOTE | 2020-10-03 10:37 | Progress Note ---
Assessment and Plan Assessment and Plan # Cardiac arrest -Patient treated" with ACLS protocol with return of perfusing cardiac rhythm, -cardiology team consulted, -echocardiogram with EF#20-25% -hx of Dialted cardiomyopathy -On ASA -troponin is negative # Acute hypoxemic respiratory failure -Patient intubated and on ventilatory support: - Critical care team consulted, wean vent as tolerated, -daily spontaneous breathing trial, sedation holiday, daily ABG. # Anoxic brain injury -Ct brain is unremarkable -EEG is remarkable for diffuse slowing low voltage -MRI brain consistent with anoxic brain injury -keep of sedation -Over all prognosis is poor -Case D/W her family on the phone yesterday--and today --explained to them that prognosis is poor with chance of recovery is unlikley #Sepsis -Sepsis protocol: Chest x-ray, CBC, BMP, urinalysis, IV antibiotic therapy, IV fluid resuscitation therapy, maintain mean arterial pressure greater than or equal to 65, # NSTEMI (non-ST elevated myocardial infarction) -Cardiology team consulted, therapeutic anticoagulation as per cardiology team, echocardiogram ordered and is pending at time of admission. # Pneumonia -Pneumonia protocol: IV antibiotic therapy, chest x-ray, CBC, CMP, blood cultu re, # Acidosis -Treat sepsis, IV fluid resuscitation therapy, BMP, repeat BMP in a.m. Serial lactic acid level. # Seizure disorder -Antiepilepsy therapy with Keppra, seizure precautions. -EEG done # DVT prophylaxis -SCD to bilateral lower extremities while in bed, therapeutic anticoagulation The high probability of a clinically significant, sudden or life threatening deterioration of the [cardiac, pulmonary, renal, neuro] system(s) required my fu ll and direct attention, intervention and personal management. The aggregate critical care time was [80] minutes. This time is in addition to time spent performing reported procedures but includes the following: [x] Data Review and interpretation [x] Patient assessment and monitoring of vital signs [x] Documentation [x] Medication orders and management Subjective Date of service: 10/03/20 Principal diagnosis: Cardiac arrest; Ac. respiratory failure; Anoxic encephalopathy; PNA; NSTEMI Interval history: Status is unchanged , intubated off sedation MRI is consistent with anoxic brain injury Objective - Vital Sign Vital Signs - 12hr 10/02/20 10/02/20 10/02/20 23:00 23:26 23:30 Temperature 99.5 F Pulse Rate 72 63 Pulse Rate [ From Monitor] Respiratory 11 L 14 Rate Blood Pressure 117/33 119/35 O2 Sat by Pulse 100 100 Oximetry 10/02/20 10/02/20 10/03/20 23:50 23:57 00:00 Temperature Pulse Rate 62 69 72 Pulse Rate [ 72 From Monitor] Respiratory 13 19 Rate Blood Pressure 115/34 119/35 104/36 O2 Sat by Pulse 100 99 99 Oximetry 10/03/20 10/03/20 10/03/20 00:30 01:00 01:30 Temperature Pulse Rate 66 63 65 Pulse Rate [ From Monitor] Respiratory 15 14 14 Rate Blood Pressure 116/38 117/38 119/38 O2 Sat by Pulse 100 100 99 Oximetry 10/03/20 10/03/20 10/03/20 02:00 02:30 03:00 Temperature Pulse Rate 63 63 69 Pulse Rate [ From Monitor] Respiratory 14 17 15 Rate Blood Pressure 119/35 117/37 122/38 O2 Sat by Pulse 100 100 99 Oximetry 10/03/20 10/03/20 10/03/20 03:30 04:00 04:19 Temperature 100.2 F H Pulse Rate 86 98 H 60 Pulse Rate [ 84 From Monitor] Respiratory 15 14 Rate Blood Pressure 122/41 138/48 133/41 O2 Sat by Pulse 99 84 96 Oximetry 10/03/20 10/03/20 10/03/20 04:30 05:00 05:30 Temperature Pulse Rate 63 63 66 Pulse Rate [ From Monitor] Respiratory 15 14 14 Rate Blood Pressure 132/41 139/41 133/43 O2 Sat by Pulse 97 99 100 Oximetry 10/03/20 10/03/20 10/03/20 06:00 06:30 07:00 Temperature Pulse Rate 65 64 73 Pulse Rate [ From Monitor] Respiratory 16 14 19 Rate Blood Pressure 132/43 132/47 126/42 O2 Sat by Pulse 100 100 99 Oximetry 10/03/20 10/03/20 10/03/20 07:30 07:44 08:00 Temperature Pulse Rate 71 73 72 Pulse Rate [ 89 From Monitor] Respiratory 14 26 H Rate Blood Pressure 110/44 131/48 124/46 O2 Sat by Pulse 100 100 97 Oximetry 10/03/20 10/03/20 10/03/20 08:30 09:00 09:45 Temperature Pulse Rate 75 70 69 Pulse Rate [ From Monitor] Respiratory 27 H 25 H Rate Blood Pressure 138/48 132/39 130/42 O2 Sat by Pulse 98 98 Oximetry - General Apperance Constitutional: comfortable - EENT EENT: mucous membranes moist - Respiratory Respiratory: rhonchi - Cardiovascular Cardiovascular: regular rate, normal S1, normal S2 Extremities: no peripheral edema bilat - Gastrointestinal Gastrointestinal: normoactive bowel sounds - Integumentary Integumentary: normal - Neurologic Cranial nerve examination: other (pupils 4 mm none reactive ,slight eyes wond ering , no corneak no gag , no movment to pain stimuli) - Laboratory Findings CBC and BMP: 10/03/20 07:24 10/03/20 07:24 Abnormal Lab Findings: Abnormal Labs 09/25/20 09/25/20 09/25/20 17:19 17:21 18:15 WBC 13.8 H Hgb 9.9 L Hct MCV 76 L MCH 23 L RDW 17.9 H Lymph % (Auto) Foster % (Auto) Lymph # (Auto) Foster # (Auto) Seg Neutrophils % 78.6 H Seg Neutrophils # 10.8 H APTT Heparin Anti-Xa Level ABG pH POC ABG pCO2 26.2 L POC ABG pO2 554.5 H ABG Hemoglobin 9.0 L ABG Oxyhemoglobin 99.0 H ABG Sodium 134.5 L ABG Potassium ABG Chloride ABG Glucose 220 H Carboxyhemoglobin Sodium Potassium Chloride BUN Creatinine Glucose POC Glucose Lactic Acid Calcium Phosphorus AST ALT Troponin T C-Reactive Protein Albumin HDL Cholesterol Arterial Blood Glucose 220 H Arterial Blood Ionized Calcium 4.2 L Urine WBC (Auto) 14.0 H 09/25/20 09/25/20 09/25/20 18:15 18:15 18:15 WBC Hgb Hct MCV MCH RDW Lymph % (Auto) Foster % (Auto) Lymph # (Auto) Foster # (Auto) Seg Neutrophils % Seg Neutrophils # APTT 21.1 L Heparin Anti-Xa Level ABG pH POC ABG pCO2 POC ABG pO2 ABG Hemoglobin ABG Oxyhemoglobin ABG Sodium ABG Potassium ABG Chloride ABG Glucose Carboxyhemoglobin Sodium Potassium Chloride BUN Creatinine Glucose 113 H POC Glucose Lactic Acid 2.60 H* Calcium Phosphorus AST 162 H ALT 131 H Troponin T 0.096 H C-Reactive Protein Albumin HDL Cholesterol Arterial Blood Glucose Arterial Blood Ionized Calcium Urine WBC (Auto) 0609/25/20 09/26/20 23:13 23:13 03:15 WBC Hgb Hct MCV MCH RDW Lymph % (Auto) Foster % (Auto) Lymph # (Auto) Foster # (Auto) Seg Neutrophils % Seg Neutrophils # APTT Heparin Anti-Xa Level ABG pH 7.451 H POC ABG pCO2 27.1 L POC ABG pO2 ABG Hemoglobin 10.4 L ABG Oxyhemoglobin ABG Sodium 135.2 L ABG Potassium ABG Chloride 108.0 H ABG Glucose 137 H Carboxyhemoglobin Sodium Potassium Chloride BUN Creatinine Glucose POC Glucose Lactic Acid 2.90 H* Calcium Phosphorus AST ALT Troponin T 0.170 H* D C-Reactive Protein Albumin HDL Cholesterol 60 H Arterial Blood Glucose 137 H Arterial Blood Ionized Calcium 4.2 L Urine WBC (Auto) 09/26/20 09/26/20 09/26/20 05:09 05:09 05:09 WBC 15.8 H Hgb 10.0 L Hct MCV 77 L MCH 24 L RDW 17.8 H Lymph % (Auto) 7.2 L Foster % (Auto) Lymph # (Auto) 1.1 L Foster # (Auto) 1.0 H Seg Neutrophils % 86.1 H Seg Neutrophils # 13.6 H APTT Heparin Anti-Xa Level ABG pH POC ABG pCO2 POC ABG pO2 ABG Hemoglobin ABG Oxyhemoglobin ABG Sodium ABG Potassium ABG Chloride ABG Glucose Carboxyhemoglobin Sodium Potassium Chloride BUN Creatinine Glucose 114 H POC Glucose Lactic Acid 2.40 H* Calcium 8.1 L Phosphorus AST 112 H ALT 103 H Troponin T C-Reactive Protein Albumin 3.8 L HDL Cholesterol Arterial Blood Glucose Arterial Blood Ionized Calcium Urine WBC (Auto) 09/26/20 09/27/20 09/27/20 15:45 03:33 04:41 WBC Hgb 9.0 L Hct 28.6 L MCV MCH RDW Lymph % (Auto) Foster % (Auto) Lymph # (Auto) Foster # (Auto) Seg Neutrophils % Seg Neutrophils # APTT Heparin Anti-Xa Level ABG pH POC ABG pCO2 POC ABG pO2 141.6 H ABG Hemoglobin 9.3 L ABG Oxyhemoglobin ABG Sodium ABG Potassium 3.2 L ABG Chloride 108.0 H ABG Glucose 118 H Carboxyhemoglobin Sodium Potassium Chloride BUN Creatinine Glucose POC Glucose Lactic Acid Calcium Phosphorus 2.20 L AST ALT Troponin T C-Reactive Protein 4.30 H Albumin HDL Cholesterol Arterial Blood Glucose 118 H Arterial Blood Ionized Calcium 4.2 L Urine WBC (Auto) 09/27/20 09/27/20 09/28/20 04:41 22:53 04:00 WBC Hgb Hct MCV MCH RDW Lymph % (Auto) Foster % (Auto) Lymph # (Auto) Foster # (Auto) Seg Neutrophils % Seg Neutrophils # APTT Heparin Anti-Xa Level 0.75 H ABG pH 7.467 H POC ABG pCO2 POC ABG pO2 78.9 L ABG Hemoglobin 9.8 L ABG Oxyhemoglobin ABG Sodium ABG Potassium ABG Chloride ABG Glucose 141 H Carboxyhemoglobin Sodium Potassium Chloride BUN Creatinine Glucose POC Glucose 109 H Lactic Acid Calcium Phosphorus AST ALT Troponin T C-Reactive Protein Albumin HDL Cholesterol Arterial Blood Glucose 141 H Arterial Blood Ionized Calcium Urine WBC (Auto) 09/28/20 09/28/20 09/28/20 05:02 05:02 17:42 WBC 11.9 H Hgb 9.3 L Hct 29.5 L MCV 76 L MCH 24 L RDW 19.4 H Lymph % (Auto) Foster % (Auto) 11.1 H Lymph # (Auto) Foster # (Auto) 1.3 H Seg Neutrophils % 72.5 H Seg Neutrophils # 8.6 H APTT Heparin Anti-Xa Level ABG pH POC ABG pCO2 POC ABG pO2 ABG Hemoglobin ABG Oxyhemoglobin ABG Sodium ABG Potassium ABG Chloride ABG Glucose Carboxyhemoglobin Sodium Potassium 3.4 L Chloride BUN Creatinine Glucose 126 H POC Glucose 69 L Lactic Acid Calcium Phosphorus AST 129 H ALT 60 H Troponin T C-Reactive Protein Albumin 3.7 L HDL Cholesterol Arterial Blood Glucose Arterial Blood Ionized Calcium Urine WBC (Auto) 09/29/20 09/29/20 09/29/20 04:00 05:53 08:39 WBC Hgb 10.0 L Hct MCV MCH RDW Lymph % (Auto) Foster % (Auto) Lymph # (Auto) Foster # (Auto) Seg Neutrophils % Seg Neutrophils # APTT Heparin Anti-Xa Level ABG pH POC ABG pCO2 POC ABG pO2 81.1 L ABG Hemoglobin 11.0 L ABG Oxyhemoglobin ABG Sodium ABG Potassium ABG Chloride 110.0 H ABG Glucose 129 H Carboxyhemoglobin Sodium Potassium Chloride BUN Creatinine Glucose POC Glucose 58 L Lactic Acid Calcium Phosphorus AST ALT Troponin T C-Reactive Protein Albumin HDL Cholesterol Arterial Blood Glucose 129 H Arterial Blood Ionized Calcium Urine WBC (Auto) 09/30/20 09/30/20 09/30/20 00:10 10:45 15:05 WBC 12.5 H Hgb 9.9 L Hct MCV 78 L MCH 24 L RDW 21.0 H Lymph % (Auto) Foster % (Auto) 13.5 H Lymph # (Auto) Foster # (Auto) 1.7 H Seg Neutrophils % Seg Neutrophils # 8.1 H APTT Heparin Anti-Xa Level ABG pH 7.469 H POC ABG pCO2 POC ABG pO2 ABG Hemoglobin 10.4 L ABG Oxyhemoglobin ABG Sodium 146.2 H ABG Potassium ABG Chloride 109.0 H ABG Glucose 155 H Carboxyhemoglobin Sodium Potassium Chloride BUN Creatinine Glucose POC Glucose 131 H Lactic Acid Calcium Phosphorus AST ALT Troponin T C-Reactive Protein Albumin HDL Cholesterol Arterial Blood Glucose 155 H Arterial Blood Ionized Calcium Urine WBC (Auto) 09/30/20 09/30/20 10/01/20 15:05 17:37 00:29 WBC Hgb Hct MCV MCH RDW Lymph % (Auto) Foster % (Auto) Lymph # (Auto) Foster # (Auto) Seg Neutrophils % Seg Neutrophils # APTT Heparin Anti-Xa Level ABG pH POC ABG pCO2 POC ABG pO2 ABG Hemoglobin ABG Oxyhemoglobin ABG Sodium ABG Potassium ABG Chloride ABG Glucose Carboxyhemoglobin Sodium Potassium Chloride 109.1 H BUN 18 H Creatinine 1.4 H Glucose 122 H POC Glucose 127 H 119 H Lactic Acid Calcium Phosphorus 2.00 L AST ALT Troponin T C-Reactive Protein Albumin HDL Cholesterol Arterial Blood Glucose Arterial Blood Ionized Calcium Urine WBC (Auto) 10/01/20 10/01/20 10/01/20 04:12 05:56 05:56 WBC 14.2 H Hgb 9.7 L Hct MCV 78 L MCH 23 L RDW 21.1 H Lymph % (Auto) Foster % (Auto) Lymph # (Auto) Foster # (Auto) Seg Neutrophils % Seg Neutrophils # APTT Heparin Anti-Xa Level ABG pH POC ABG pCO2 POC ABG pO2 73.0 L ABG Hemoglobin 10.0 L ABG Oxyhemoglobin 93.7 L ABG Sodium 146.4 H ABG Potassium ABG Chloride 110.0 H ABG Glucose 124 H Carboxyhemoglobin 0.3 L Sodium 147 H Potassium Chloride 109.6 H BUN Creatinine Glucose 109 H POC Glucose Lactic Acid Calcium Phosphorus AST ALT Troponin T C-Reactive Protein Albumin HDL Cholesterol Arterial Blood Glucose 124 H Arterial Blood Ionized Calcium Urine WBC (Auto) 10/01/20 10/01/20 10/02/20 19:21 23:17 05:27 WBC Hgb Hct MCV MCH RDW Lymph % (Auto) Foster % (Auto) Lymph # (Auto) Foster # (Auto) Seg Neutrophils % Seg Neutrophils # APTT Heparin Anti-Xa Level ABG pH POC ABG pCO2 POC ABG pO2 ABG Hemoglobin ABG Oxyhemoglobin ABG Sodium ABG Potassium ABG Chloride ABG Glucose Carboxyhemoglobin Sodium Potassium Chloride BUN Creatinine Glucose POC Glucose 126 H 160 H 121 H Lactic Acid Calcium Phosphorus AST ALT Troponin T C-Reactive Protein Albumin HDL Cholesterol Arterial Blood Glucose Arterial Blood Ionized Calcium Urine WBC (Auto) 10/02/20 10/02/20 10/02/20 06:48 06:48 11:51 WBC 14.2 H Hgb 9.6 L Hct MCV MCH 25 L RDW 21.7 H Lymph % (Auto) Foster % (Auto) Lymph # (Auto) Foster # (Auto) Seg Neutrophils % Seg Neutrophils # APTT Heparin Anti-Xa Level ABG pH POC ABG pCO2 POC ABG pO2 ABG Hemoglobin ABG Oxyhemoglobin ABG Sodium ABG Potassium ABG Chloride ABG Glucose Carboxyhemoglobin Sodium 147 H Potassium Chloride 110.4 H BUN Creatinine Glucose 134 H POC Glucose 121 H Lactic Acid Calcium Phosphorus 2.20 L AST ALT Troponin T C-Reactive Protein Albumin HDL Cholesterol Arterial Blood Glucose Arterial Blood Ionized Calcium Urine WBC (Auto) 10/02/20 10/03/20 10/03/20 17:19 00:35 07:24 WBC 12.9 H Hgb 8.9 L Hct 29.6 L MCV MCH 24 L RDW 21.9 H Lymph % (Auto) Foster % (Auto) Lymph # (Auto) Foster # (Auto) Seg Neutrophils % Seg Neutrophils # APTT Heparin Anti-Xa Level ABG pH POC ABG pCO2 POC ABG pO2 ABG Hemoglobin ABG Oxyhemoglobin ABG Sodium ABG Potassium ABG Chloride ABG Glucose Carboxyhemoglobin Sodium Potassium Chloride BUN Creatinine Glucose POC Glucose 107 H 112 H Lactic Acid Calcium Phosphorus AST ALT Troponin T C-Reactive Protein Albumin HDL Cholesterol Arterial Blood Glucose Arterial Blood Ionized Calcium Urine WBC (Auto) 10/03/20 07:24 WBC Hgb Hct MCV MCH RDW Lymph % (Auto) Foster % (Auto) Lymph # (Auto) Foster # (Auto) Seg Neutrophils % Seg Neutrophils # APTT Heparin Anti-Xa Level ABG pH POC ABG pCO2 POC ABG pO2 ABG Hemoglobin ABG Oxyhemoglobin ABG Sodium ABG Potassium ABG Chloride ABG Glucose Carboxyhemoglobin Sodium 147 H Potassium Chloride 110.4 H BUN Creatinine Glucose 128 H POC Glucose Lactic Acid Calcium Phosphorus AST ALT Troponin T C-Reactive Protein Albumin HDL Cholesterol Arterial Blood Glucose Arterial Blood Ionized Calcium Urine WBC (Auto)
--- NOTE | 2020-10-03 10:59 | Electrocardiograph Report ---
[facility] Test Date: 2020-09-25 Test Time: 17:15:43 Pat Name: GALO CORDERO Department: Room: A262 1 Gender: F Superintendent Tests: RADHA : 1975 Requested By: SABRINA BENJAMIN III Order Number: [id number] Reading MD: Elizabeth Diego Measurements Intervals [place] Rate: 97 P: 79 MS: 162 QRS: 63 QRSD: 103 T: 58 QT: 401 QTc: 509 Interpretive Statements Sinus rhythm Nonspecific T abnormalities, anterior leads No previous ECG available for comparison Electronically Signed On 10-03-2020 10:59:30 EDT by Elizabeth Diego
--- NOTE | 2020-10-03 14:00 | Progress Note ---
Assessment and Plan Cardiac arrest with return of spontaneous circulation. Acute respiratory failure, on mechanical ventilatory support. Acute toxic metabolic encephalopathy. Possible anoxic encephalopathy. Obesity. History of obesity hypoventilation syndrome. Leukocytosis. Likely aspiration pneumonia, bilateral. Anemia that is microcytic. Lactic acidosis. Elevated serum transaminases. Non-ST elevation myocardial infarction - family wants input from [facility] - cut Losartan & Coreg doses in half (Coreg down to 6.25 mg bid & Losartan to 25 mg qd) - continue scopolamine patch for secretion control - await bilateral lower extremity dopplers re: DVT - continue IV Heparin drip for now - continue care as below otherwise; - continue to wean supplemental oxygen for target O2 sat's > 90% acutely - VAP bundle addressed - continue lung protective strategies - continue bronchodilators with pulmonary hygiene per RT - wean per pulmonary driven protocols otherwise - continue Daily SAT and SBT assessment as tolerated - continue accuchecks with glycemic control per SSI (While critically ill target blood glucose of 140-180 mg/dL; avoid hypoglycemia) - sedation prn for target RASS 0 to -1 - avoid nephrotoxins, renally dose all medications - continue to avoid benzodiazepine's, reduce the possibility of delirium - completed AB's per ID rec's - prn analgesia per CPOT score - Maintenance of sleep-wake cycle, avoid delirium - continue enteral nutritional support at goal rate as tolerated - G.I. & VTE prophylaxis - PT/OT/ROM exercises - continue mobility protocols for pressure ulcer prophylaxis - Monitor hemodynamics closely - continue other care per attending / other consultants - discharge planning ongoing concurrently COVID SPECIFIC INTERVENTIONS - COVID tests result was negative .... Re-evaluate in am & prn CONDITION: CRITICAL PROGNOSIS: GUARDED CODE STATUS: FULL CODE The high probability of a clinically significant, sudden or life-threatening deterioration of the [respiratory, cardiovascular & neurologic] system(s) required my full and direct attention, intervention and personal management. The aggregate critical care time was [35] minutes without overlap. Time includes spent on; [x] Data Review and interpretation [x] Patient assessment and monitoring of vital signs [x] Documentation [x] Medication orders and management Subjective Date of service: 10/03/20 Principal diagnosis: Cardiac arrest; Ac. respiratory failure; Anoxic encephalopathy; PNA; NSTEMI Interval history: Patient is seen today for: Cardiac arrest with ROSC; Acute respiratory failure; Anoxic encephalopathy; Obesity; OHS; Aspiration pneumonia; NSTEMI Seen and examined at bedside; 24hour events reviewed; nursing and respiratory care staff consulted; no adverse overnight events reported to me; resting in bed; remains on MVS; tolerating SBT well so far today; poor neurologic recovery prognosis discussed with NOK by neurologist; they want input from [facility] meanwhile continuing aggressive care acutely; + hypotensive episode earlier Objective Vital Signs - 12hr 10/03/20 10/03/20 10/03/20 02:30 03:00 03:30 Temperature Pulse Rate 63 69 86 Pulse Rate [ From Monitor] Respiratory 17 15 15 Rate Blood Pressure 117/37 122/38 122/41 O2 Sat by Pulse 100 99 99 Oximetry 10/03/20 10/03/20 10/03/20 04:00 04:19 04:30 Temperature 100.2 F H Pulse Rate 98 H 60 63 Pulse Rate [ 84 From Monitor] Respiratory 14 15 Rate Blood Pressure 138/48 133/41 132/41 O2 Sat by Pulse 84 96 97 Oximetry 10/03/20 10/03/20 10/03/20 05:00 05:30 06:00 Temperature Pulse Rate 63 66 65 Pulse Rate [ From Monitor] Respiratory 14 14 16 Rate Blood Pressure 139/41 133/43 132/43 O2 Sat by Pulse 99 100 100 Oximetry 10/03/20 10/03/20 10/03/20 06:30 07:00 07:30 Temperature Pulse Rate 64 73 71 Pulse Rate [ From Monitor] Respiratory 14 19 14 Rate Blood Pressure 132/47 126/42 110/44 O2 Sat by Pulse 100 99 100 Oximetry 10/03/20 10/03/20 10/03/20 07:44 08:00 08:30 Temperature Pulse Rate 73 72 75 Pulse Rate [ 89 From Monitor] Respiratory 26 H 27 H Rate Blood Pressure 131/48 124/46 138/48 O2 Sat by Pulse 100 97 98 Oximetry 10/03/20 10/03/20 10/03/20 09:00 09:30 09:45 Temperature Pulse Rate 70 73 69 Pulse Rate [ From Monitor] Respiratory 25 H 26 H Rate Blood Pressure 132/39 130/42 130/42 O2 Sat by Pulse 98 99 Oximetry 10/03/20 10/03/20 10/03/20 10:00 10:30 11:00 Temperature Pulse Rate 108 H 79 71 Pulse Rate [ From Monitor] Respiratory 21 26 H 25 H Rate Blood Pressure 134/55 121/40 109/37 O2 Sat by Pulse 100 100 99 Oximetry 10/03/20 10/03/20 10/03/20 11:30 11:31 11:44 Temperature 99.7 F H Pulse Rate 72 71 Pulse Rate [ From Monitor] Respiratory 26 H 27 H Rate Blood Pressure 123/39 118/42 O2 Sat by Pulse 100 100 Oximetry 10/03/20 10/03/20 10/03/20 12:00 12:30 13:00 Temperature Pulse Rate 71 72 75 Pulse Rate [ From Monitor] Respiratory 29 H 27 H 26 H Rate Blood Pressure 122/42 119/39 123/40 O2 Sat by Pulse 100 100 100 Oximetry Constitutional: no acute distress, other (middle aged obese female with mildly increased respiratory effort at rest on MVS) Eyes: non-icteric ENT: oropharynx moist, other (ETT 23 cm JAH) Neck: supple, no lymphadenopathy, no JVD Effort: normal Ascultation: Bilateral: rhonchi Percussion: Bilateral: not dull Cardiovascular: regular rate and rhythm Gastrointestinal: normoactive bowel sounds Integumentary: normal Extremities: no cyanosis, no edema, pulses normal, no ischemia or petechiae Neurologic: pupils equal and round, unable to assess Psychiatric: other (unable to assess re: AMS) CBC and BMP: 10/03/20 07:24 10/03/20 07:24 ABG, PT/INR, D-dimer: ABG ABG pH 7.424 (7.320-7.450) 10/01/20 04:12 POC ABG pCO2 41.6 mmHg (32.0-48.0) 10/01/20 04:12 POC ABG pO2 73.0 mmHg (83-108) L 10/01/20 04:12 POC ABG HCO3 26.6 10/01/20 04:12 ABG O2 Saturation 94.3 (0-100) 10/01/20 04:12 PT/INR, D-dimer PT 13.7 Sec. (12.2-14.9) 09/25/20 18:15 INR 1.00 (0.87-1.13) 09/25/20 18:15 Abnormal lab findings: Abnormal Labs 09/25/20 09/25/20 09/25/20 17:19 17:21 18:15 WBC 13.8 H Hgb 9.9 L Hct MCV 76 L MCH 23 L RDW 17.9 H Lymph % (Auto) [place] % (Auto) Lymph # (Auto) [place] # (Auto) Seg Neutrophils % 78.6 H Seg Neutrophils # 10.8 H APTT Heparin Anti-Xa Level ABG pH POC ABG pCO2 26.2 L POC ABG pO2 554.5 H ABG Hemoglobin 9.0 L ABG Oxyhemoglobin 99.0 H ABG Sodium 134.5 L ABG Potassium ABG Chloride ABG Glucose 220 H Carboxyhemoglobin Sodium Potassium Chloride BUN Creatinine Glucose POC Glucose Lactic Acid Calcium Phosphorus AST ALT Troponin T C-Reactive Protein Albumin HDL Cholesterol Arterial Blood Glucose 220 H Arterial Blood Ionized Calcium 4.2 L Urine WBC (Auto) 14.0 H 09/25/20 09/25/20 09/25/20 18:15 18:15 18:15 WBC Hgb Hct MCV MCH RDW Lymph % (Auto) [place] % (Auto) Lymph # (Auto) [place] # (Auto) Seg Neutrophils % Seg Neutrophils # APTT 21.1 L Heparin Anti-Xa Level ABG pH POC ABG pCO2 POC ABG pO2 ABG Hemoglobin ABG Oxyhemoglobin ABG Sodium ABG Potassium ABG Chloride ABG Glucose Carboxyhemoglobin Sodium Potassium Chloride BUN Creatinine Glucose 113 H POC Glucose Lactic Acid 2.60 H* Calcium Phosphorus AST 162 H ALT 131 H Troponin T 0.096 H C-Reactive Protein Albumin HDL Cholesterol Arterial Blood Glucose Arterial Blood Ionized Calcium Urine WBC (Auto) 09/25/20 09/25/20 09/26/20 23:13 23:13 03:15 WBC Hgb Hct MCV MCH RDW Lymph % (Auto) [place] % (Auto) Lymph # (Auto) [place] # (Auto) Seg Neutrophils % Seg Neutrophils # APTT Heparin Anti-Xa Level ABG pH 7.451 H POC ABG pCO2 27.1 L POC ABG pO2 ABG Hemoglobin 10.4 L ABG Oxyhemoglobin ABG Sodium 135.2 L ABG Potassium ABG Chloride 108.0 H ABG Glucose 137 H Carboxyhemoglobin Sodium Potassium Chloride BUN Creatinine Glucose POC Glucose Lactic Acid 2.90 H* Calcium Phosphorus AST ALT Troponin T 0.170 H* D C-Reactive Protein Albumin HDL Cholesterol 60 H Arterial Blood Glucose 137 H Arterial Blood Ionized Calcium 4.2 L Urine WBC (Auto) 09/26/20 09/26/20 09/26/20 05:09 05:09 05:09 WBC 15.8 H Hgb 10.0 L Hct MCV 77 L MCH 24 L RDW 17.8 H Lymph % (Auto) 7.2 L [place] % (Auto) Lymph # (Auto) 1.1 L [place] # (Auto) 1.0 H Seg Neutrophils % 86.1 H Seg Neutrophils # 13.6 H APTT Heparin Anti-Xa Level ABG pH POC ABG pCO2 POC ABG pO2 ABG Hemoglobin ABG Oxyhemoglobin ABG Sodium ABG Potassium ABG Chloride ABG Glucose Carboxyhemoglobin Sodium Potassium Chloride BUN Creatinine Glucose 114 H POC Glucose Lactic Acid 2.40 H* Calcium 8.1 L Phosphorus AST 112 H ALT 103 H Troponin T C-Reactive Protein Albumin 3.8 L HDL Cholesterol Arterial Blood Glucose Arterial Blood Ionized Calcium Urine WBC (Auto) 09/26/20 09/27/20 09/27/20 15:45 03:33 04:41 WBC Hgb 9.0 L Hct 28.6 L MCV MCH RDW Lymph % (Auto) [place] % (Auto) Lymph # (Auto) [place] # (Auto) Seg Neutrophils % Seg Neutrophils # APTT Heparin Anti-Xa Level ABG pH POC ABG pCO2 POC ABG pO2 141.6 H ABG Hemoglobin 9.3 L ABG Oxyhemoglobin ABG Sodium ABG Potassium 3.2 L ABG Chloride 108.0 H ABG Glucose 118 H Carboxyhemoglobin Sodium Potassium Chloride BUN Creatinine Glucose POC Glucose Lactic Acid Calcium Phosphorus 2.20 L AST ALT Troponin T C-Reactive Protein 4.30 H Albumin HDL Cholesterol Arterial Blood Glucose 118 H Arterial Blood Ionized Calcium 4.2 L Urine WBC (Auto) 09/27/20 09/27/20 09/28/20 04:41 22:53 04:00 WBC Hgb Hct MCV MCH RDW Lymph % (Auto) [place] % (Auto) Lymph # (Auto) [place] # (Auto) Seg Neutrophils % Seg Neutrophils # APTT Heparin Anti-Xa Level 0.75 H ABG pH 7.467 H POC ABG pCO2 POC ABG pO2 78.9 L ABG Hemoglobin 9.8 L ABG Oxyhemoglobin ABG Sodium ABG Potassium ABG Chloride ABG Glucose 141 H Carboxyhemoglobin Sodium Potassium Chloride BUN Creatinine Glucose POC Glucose 109 H Lactic Acid Calcium Phosphorus AST ALT Troponin T C-Reactive Protein Albumin HDL Cholesterol Arterial Blood Glucose 141 H Arterial Blood Ionized Calcium Urine WBC (Auto) 09/28/20 09/28/20 09/28/20 05:02 05:02 17:42 WBC 11.9 H Hgb 9.3 L Hct 29.5 L MCV 76 L MCH 24 L RDW 19.4 H Lymph % (Auto) [place] % (Auto) 11.1 H Lymph # (Auto) [place] # (Auto) 1.3 H Seg Neutrophils % 72.5 H Seg Neutrophils # 8.6 H APTT Heparin Anti-Xa Level ABG pH POC ABG pCO2 POC ABG pO2 ABG Hemoglobin ABG Oxyhemoglobin ABG Sodium ABG Potassium ABG Chloride ABG Glucose Carboxyhemoglobin Sodium Potassium 3.4 L Chloride BUN Creatinine Glucose 126 H POC Glucose 69 L Lactic Acid Calcium Phosphorus AST 129 H ALT 60 H Troponin T C-Reactive Protein Albumin 3.7 L HDL Cholesterol Arterial Blood Glucose Arterial Blood Ionized Calcium Urine WBC (Auto) 09/29/20 09/29/20 09/29/20 04:00 05:53 08:39 WBC Hgb 10.0 L Hct MCV MCH RDW Lymph % (Auto) [place] % (Auto) Lymph # (Auto) [place] # (Auto) Seg Neutrophils % Seg Neutrophils # APTT Heparin Anti-Xa Level ABG pH POC ABG pCO2 POC ABG pO2 81.1 L ABG Hemoglobin 11.0 L ABG Oxyhemoglobin ABG Sodium ABG Potassium ABG Chloride 110.0 H ABG Glucose 129 H Carboxyhemoglobin Sodium Potassium Chloride BUN Creatinine Glucose POC Glucose 58 L Lactic Acid Calcium Phosphorus AST ALT Troponin T C-Reactive Protein Albumin HDL Cholesterol Arterial Blood Glucose 129 H Arterial Blood Ionized Calcium Urine WBC (Auto) 09/30/20 09/30/20 09/30/20 00:10 10:45 15:05 WBC 12.5 H Hgb 9.9 L Hct MCV 78 L MCH 24 L RDW 21.0 H Lymph % (Auto) [place] % (Auto) 13.5 H Lymph # (Auto) [place] # (Auto) 1.7 H Seg Neutrophils % Seg Neutrophils # 8.1 H APTT Heparin Anti-Xa Level ABG pH 7.469 H POC ABG pCO2 POC ABG pO2 ABG Hemoglobin 10.4 L ABG Oxyhemoglobin ABG Sodium 146.2 H ABG Potassium ABG Chloride 109.0 H ABG Glucose 155 H Carboxyhemoglobin Sodium Potassium Chloride BUN Creatinine Glucose POC Glucose 131 H Lactic Acid Calcium Phosphorus AST ALT Troponin T C-Reactive Protein Albumin HDL Cholesterol Arterial Blood Glucose 155 H Arterial Blood Ionized Calcium Urine WBC (Auto) 09/30/20 09/30/20 10/01/20 15:05 17:37 00:29 WBC Hgb Hct MCV MCH RDW Lymph % (Auto) [place] % (Auto) Lymph # (Auto) [place] # (Auto) Seg Neutrophils % Seg Neutrophils # APTT Heparin Anti-Xa Level ABG pH POC ABG pCO2 POC ABG pO2 ABG Hemoglobin ABG Oxyhemoglobin ABG Sodium ABG Potassium ABG Chloride ABG Glucose Carboxyhemoglobin Sodium Potassium Chloride 109.1 H BUN 18 H Creatinine 1.4 H Glucose 122 H POC Glucose 127 H 119 H Lactic Acid Calcium Phosphorus 2.00 L AST ALT Troponin T C-Reactive Protein Albumin HDL Cholesterol Arterial Blood Glucose Arterial Blood Ionized Calcium Urine WBC (Auto) 10/01/20 10/01/20 10/01/20 04:12 05:56 05:56 WBC 14.2 H Hgb 9.7 L Hct MCV 78 L MCH 23 L RDW 21.1 H Lymph % (Auto) [place] % (Auto) Lymph # (Auto) [place] # (Auto) Seg Neutrophils % Seg Neutrophils # APTT Heparin Anti-Xa Level ABG pH POC ABG pCO2 POC ABG pO2 73.0 L ABG Hemoglobin 10.0 L ABG Oxyhemoglobin 93.7 L ABG Sodium 146.4 H ABG Potassium ABG Chloride 110.0 H ABG Glucose 124 H Carboxyhemoglobin 0.3 L Sodium 147 H Potassium Chloride 109.6 H BUN Creatinine Glucose 109 H POC Glucose Lactic Acid Calcium Phosphorus AST ALT Troponin T C-Reactive Protein Albumin HDL Cholesterol Arterial Blood Glucose 124 H Arterial Blood Ionized Calcium Urine WBC (Auto) 10/01/20 10/01/20 10/02/20 19:21 23:17 05:27 WBC Hgb Hct MCV MCH RDW Lymph % (Auto) [place] % (Auto) Lymph # (Auto) [place] # (Auto) Seg Neutrophils % Seg Neutrophils # APTT Heparin Anti-Xa Level ABG pH POC ABG pCO2 POC ABG pO2 ABG Hemoglobin ABG Oxyhemoglobin ABG Sodium ABG Potassium ABG Chloride ABG Glucose Carboxyhemoglobin Sodium Potassium Chloride BUN Creatinine Glucose POC Glucose 126 H 160 H 121 H Lactic Acid Calcium Phosphorus AST ALT Troponin T C-Reactive Protein Albumin HDL Cholesterol Arterial Blood Glucose Arterial Blood Ionized Calcium Urine WBC (Auto) 10/02/20 10/02/20 10/02/20 06:48 06:48 11:51 WBC 14.2 H Hgb 9.6 L Hct MCV MCH 25 L RDW 21.7 H Lymph % (Auto) [place] % (Auto) Lymph # (Auto) [place] # (Auto) Seg Neutrophils % Seg Neutrophils # APTT Heparin Anti-Xa Level ABG pH POC ABG pCO2 POC ABG pO2 ABG Hemoglobin ABG Oxyhemoglobin ABG Sodium ABG Potassium ABG Chloride ABG Glucose Carboxyhemoglobin Sodium 147 H Potassium Chloride 110.4 H BUN Creatinine Glucose 134 H POC Glucose 121 H Lactic Acid Calcium Phosphorus 2.20 L AST ALT Troponin T C-Reactive Protein Albumin HDL Cholesterol Arterial Blood Glucose Arterial Blood Ionized Calcium Urine WBC (Auto) 10/02/20 10/03/20 10/03/20 17:19 00:35 07:24 WBC 12.9 H Hgb 8.9 L Hct 29.6 L MCV MCH 24 L RDW 21.9 H Lymph % (Auto) [place] % (Auto) Lymph # (Auto) [place] # (Auto) Seg Neutrophils % Seg Neutrophils # APTT Heparin Anti-Xa Level ABG pH POC ABG pCO2 POC ABG pO2 ABG Hemoglobin ABG Oxyhemoglobin ABG Sodium ABG Potassium ABG Chloride ABG Glucose Carboxyhemoglobin Sodium Potassium Chloride BUN Creatinine Glucose POC Glucose 107 H 112 H Lactic Acid Calcium Phosphorus AST ALT Troponin T C-Reactive Protein Albumin HDL Cholesterol Arterial Blood Glucose Arterial Blood Ionized Calcium Urine WBC (Auto) 10/03/20 07:24 WBC Hgb Hct MCV MCH RDW Lymph % (Auto) [place] % (Auto) Lymph # (Auto) [place] # (Auto) Seg Neutrophils % Seg Neutrophils # APTT Heparin Anti-Xa Level ABG pH POC ABG pCO2 POC ABG pO2 ABG Hemoglobin ABG Oxyhemoglobin ABG Sodium ABG Potassium ABG Chloride ABG Glucose Carboxyhemoglobin Sodium 147 H Potassium Chloride 110.4 H BUN Creatinine Glucose 128 H POC Glucose Lactic Acid Calcium Phosphorus AST ALT Troponin T C-Reactive Protein Albumin HDL Cholesterol Arterial Blood Glucose Arterial Blood Ionized Calcium Urine WBC (Auto) Allied health notes reviewed: nursing
[2020-10-03] MEDS ORDERED: SODIUM PHOSPHATE 15 MMOL in SODIUM CHLORIDE 0.9% 250ML 150 ML IV ONE (17:00)
--- NOTE | 2020-10-03 17:01 | Progress Note ---
<TABITHACHANTELLLaci - Last Filed: 10/03/20 16:57> Assessment and Plan Assessment and plan: This is a 45-year-old female with OHS and GERD who presented s/p cardiac arrest S/p cardiac arrest Global anoxic brain injury Small acute lacunar infarct in the right lesia Acute hypoxic respiratory failure NSTEMI Sepsis Leukocytosis Lactic acidosis Pneumonia Seizure disorder Obesity GERD -[facility], neurology, cardiology, PT consulted, patient recommendations -09/25 CTA chest shows no CT evidence of pulmonary embolism, consolidative changes within both dependent lungs may be due to aspiration -09/25 CT head shows no evidence of acute abnormality, no evidence of acute ischemic injury, hemorrhage, mass affect -09/25 echocardiogram shows left ventricular mildly dilated, left ventricle systolic function severely decreased, left ventricular ejection fraction is 70 decreased, severe global hypokinesis of the left ventricle, LVEF 20 to 25% -09/26 CXR shows slight interval worsening of bilateral parenchymal disease also be secondary to pneumonia possibly aspiration pneumonia -09/27 CXR shows much improved appearance of the chest with improving bilateral pulmonary opacities -09/27 EEG shows significant abnormal record with low voltage 2-400 noted throughout this recording, admixed with low voltage fast beta activity noted frontally, findings suggestive of possible cortical dysfunction and/or encephalopathy and/or post cardiac arrest, possibility of post ictal stage cannot be totally excluded -10/02 MRI showed diffuse cerebral restricted diffusion consistent with global anoxic brain injury, no associated hemorrhage or herniation and additional small acute lacunar infarct in the right lesia -10/01 BLE Doppler ultrasound pending -TF, ssi, accucheck q6 -Heparin drip -Aspirin, BB, ANNIE -MIVF -Keppra -Seizure/aspiration precautions -Ativan as needed -As needed labetalol for SBP>160 -Trend CBC, BMP DVT/GI prophylaxis: Pepcid, systemic anticoagulation with heparin drip, SCDs to bilateral directions while in bed Disposition: ICU, awaiting family decision about goals of care The high probability of a clinically significant, sudden or life threatening deterioration of the [cardiac, pulmonary, renal, neuro] system(s) required my full and direct attention, intervention and personal management. The aggregate critical care time was [35] minutes. This time is in addition to time spent performing reported procedures but includes the following: [x] Data Review and interpretation [x] Patient assessment and monitoring of vital signs [x] Documentation [x] Medication orders and management History Interval history: 45-year-old female with obesity hypoventilation syndrome and GERD who presented to the emergency department on 09/30 s/p cardiac arrest via EMS. Per EMS staff they were notified for shortness of breath and upon arrival patient was found to be in distress and subsequently went into cardiac arrest and she was treated in accordance to ACLS protocol and intubated in the field and transported to [facility]. Evaluation in the emergency department upon arrival to the emergency department patient was found to have persistent hypoxic respiratory failure and was maintained on ventilator support. Work-up revealed sepsis, pneumonia, seizure disorder, metabolic acidosis as well as NSTEMI. Cardiology, neurology, [facility] were consulted. 09/26/2020: Patient remains unresponsive, intubated on ventilatory support. 09/27/2020; patient remains unresponsive, intubated on ventilatory support Follow neurology evaluation and recommendations Very poor prognosis, I spoke with patient's aunt Ms. Debora Minor 09/26/2020 About patient's condition , tests and reports and very poor prognosis. She verbalized understanding. I discussed the CODE STATUS Full code at this point 09/28/2020 S/p cardiac arrest outside the facility Intubated and unresponsive We will discuss CODE STATUS again 09/29/2020 S/p cardiac arrest Intubated and unresponsive Will request ethics consult and family meeting again regarding the prognosis and outcome 09/30/20 Discussed with family They will decide about DNR--amenable 10/01: Patient has persistent leukocytosis and hyperchloremia. Patient now has hypernatremia and renal function has improved to CR/BUN 1.1/15 from 1.18. Patient has hypophosphatemia which was repleted yesterday and we will obtain a.m. labs. Patient has MRI brain pending. Family updated by neurology over the phone and [employer] at bedside. Patient niece was at bedside today and she will defer goals of care decision after MRI results. EEG findings were explained. According to her the patient was in found to be unresponsive by family and was given bystander CPR before arrival of EMS. 10/02: Patient received MRI brain today which showed diffuse cerebral restricted diffusion consistent with global anoxic brain injury, no associated hemorrhage or herniation and additional small acute lacunar infarct in the right paracentral lesia. Patient was hypotensive today and received a bolus of fluids with recovery. At the time examination patient on a CPAP trial of 09/26 and on 25% FiO2. Today we removed the patient's Grace catheter, discontinued bowel regimen and ask RN to follow-up on bilateral lower extremity Doppler ultrasounds. Patient noted to be hypernatremic and free water flushes were increased. 10/03: Cardiology will follow the patient peripherally given poor prognosis, Dr. Alvarado and has spoken to the family regarding prognosis today. Given hypotension patient will receive lower doses of blood pressure medicine and per social services counselor request a referral to [facility]. Patient will be started on maintenance IV fluid. Patient slight hyperchloremia and hypernatremia persists. Patient received treatment phosphorus and we will recheck level in the a.m. Her leukocytosis improved. H/H is slowly drifting down. She remains on heparin drip. Hospitalist Physical - Constitutional Vitals: Temp Pulse Resp BP Pulse Ox 100.8 F H 76 16 112/42 97 10/03/20 16:00 10/03/20 16:30 10/03/20 16:30 10/03/20 16:30 10/03/20 16:30 General appearance: Present: no acute distress, well-nourished, other (not responsive ) - EENT Eyes: Absent: PERRL, EOM intact - Neck Neck: Absent: normal ROM - Respiratory Respiratory effort: normal Respiratory: bilateral: CTA - Cardiovascular Rhythm: regular Heart Sounds: Present: S1 & S2. Absent: systolic murmur, diastolic murmur - Extremities Extremities: no ischemia, pulses intact, pulses symmetrical, normal temperature, normal color Peripheral Pulses: within normal limits - Abdominal General gastrointestinal: soft, non-tender, non-distended - Integumentary Integumentary: Present: warm, dry - Psychiatric Psychiatric: other (not interactive) - Neurologic Neurologic: no CNII-XII intact, no moves all extremities - Allied Health Allied health notes reviewed: nursing, social work HEART Score - HEART Score Troponin: Troponin T < 0.010 ng/mL (0.00-0.029) 10/02/20 06:48 Results - Labs CBC & Chem 7: 10/03/20 07:24 10/03/20 07:24 Labs: Laboratory Last Values WBC 12.9 K/mm3 (4.5-11.0) H 10/03/20 07:24 RBC 3.73 M/mm3 (3.65-5.03) 10/03/20 07:24 Hgb 8.9 gm/dl (10.1-14.3) L 10/03/20 07:24 Hct 29.6 % (30.3-42.9) L 10/03/20 07:24 MCV 79 fl (79-97) 10/03/20 07:24 MCH 24 pg (28-32) L 10/03/20 07:24 MCHC 30 % (30-34) 10/03/20 07:24 RDW 21.9 % (13.2-15.2) H 10/03/20 07:24 Plt Count 366 K/mm3 (140-440) 10/03/20 07:24 Lymph % (Auto) 20.1 % (13.4-35.0) 09/30/20 15:05 [place] % (Auto) 13.5 % (0.0-7.3) H 09/30/20 15:05 Eos % (Auto) 0.4 % (0.0-4.3) 09/30/20 15:05 Baso % (Auto) 1.0 % (0.0-1.8) 09/30/20 15:05 Lymph # (Auto) 2.5 K/mm3 (1.2-5.4) 09/30/20 15:05 [place] # (Auto) 1.7 K/mm3 (0.0-0.8) H 09/30/20 15:05 Eos # (Auto) 0.0 K/mm3 (0.0-0.4) 09/30/20 15:05 Baso # (Auto) 0.1 K/mm3 (0.0-0.1) 09/30/20 15:05 Seg Neutrophils % 65.0 % (40.0-70.0) 09/30/20 15:05 Seg Neutrophils # 8.1 K/mm3 (1.8-7.7) H 09/30/20 15:05 PT 13.7 Sec. (12.2-14.9) 09/25/20 18:15 INR 1.00 (0.87-1.13) 09/25/20 18:15 APTT 21.1 Sec. (24.2-36.6) L 09/25/20 18:15 Heparin Anti-Xa Level 0.32 U.I./ml (0.3-0.7) 10/02/20 19:58 ABG pH 7.424 (7.320-7.450) 10/01/20 04:12 POC ABG pCO2 41.6 mmHg (32.0-48.0) 10/01/20 04:12 POC ABG pO2 73.0 mmHg (83-108) L 10/01/20 04:12 POC ABG HCO3 26.6 10/01/20 04:12 ABG O2 Saturation 94.3 (0-100) 10/01/20 04:12 POC ABG Base Excess 2.0 10/01/20 04:12 ABG Hemoglobin 10.0 (12.0-17.5) L 10/01/20 04:12 ABG Oxyhemoglobin 93.7 (94-98) L 10/01/20 04:12 ABG Methemoglobin 0.3 (0.0-1.5) 10/01/20 04:12 ABG Sodium 146.4 mmol/L (136.0-145.0) H 10/01/20 04:12 ABG Potassium 3.8 mmol/L (3.40-4.50) 10/01/20 04:12 ABG Chloride 110.0 mmol/L (98-107) H 10/01/20 04:12 ABG Glucose 124 mg/dL (65-95) H 10/01/20 04:12 Carboxyhemoglobin 0.3 (0.5-1.5) L 10/01/20 04:12 FiO2 % 25.0 10/01/20 04:12 Sodium 147 mmol/L (137-145) H 10/03/20 07:24 Potassium 4.2 mmol/L (3.6-5.0) 10/03/20 07:24 Chloride 110.4 mmol/L (98-107) H 10/03/20 07:24 Carbon Dioxide 29 mmol/L (22-30) 10/03/20 07:24 Anion Gap 12 mmol/L 10/03/20 07:24 BUN 13 mg/dL (7-17) 10/03/20 07:24 Creatinine 0.8 mg/dL (0.6-1.2) 10/03/20 07:24 Estimated GFR > 60 ml/min 10/03/20 07:24 BUN/Creatinine Ratio 16 % 10/03/20 07:24 Glucose 128 mg/dL (65-100) H 10/03/20 07:24 POC Glucose 102 mg/dL (70-105) 10/03/20 11:12 Lactic Acid 1.00 mmol/L (0.7-2.0) 09/27/20 04:41 Calcium 9.6 mg/dL (8.4-10.2) 10/03/20 07:24 Phosphorus 2.20 mg/dL (2.5-4.5) L 10/02/20 06:48 Magnesium 2.20 mg/dL (1.7-2.3) 10/02/20 06:48 Total Bilirubin 0.20 mg/dL (0.1-1.2) 09/28/20 05:02 AST 129 units/L (5-40) H 09/28/20 05:02 ALT 60 units/L (7-56) H 09/28/20 05:02 Alkaline Phosphatase 84 units/L (35-129) 09/28/20 05:02 Troponin T < 0.010 ng/mL (0.00-0.029) 10/02/20 06:48 C-Reactive Protein 4.30 mg/dL (0.00-1.30) H 09/26/20 15:45 Total Protein 6.9 g/dL (6.3-8.2) 09/28/20 05:02 Albumin 3.7 g/dL (3.9-5) L 09/28/20 05:02 Albumin/Globulin Ratio 1.2 % 09/28/20 05:02 Triglycerides 40 mg/dL (2-149) 09/25/20 23:13 Cholesterol 132 mg/dL (50-199) 09/25/20 23:13 LDL Cholesterol Direct 66 mg/dL (50-130) 09/25/20 23:13 HDL Cholesterol 60 mg/dL (40-59) H 09/25/20 23:13 Cholesterol/HDL Ratio 2.20 % 09/25/20 23:13 Procalcitonin 0.31 ng/mL (<0.15) 09/26/20 15:45 Arterial Blood Glucose 124 mg/dL (65-95) H 10/01/20 04:12 Arterial Blood Ionized Calcium 4.8 mg/dL (4.6-5.3) 10/01/20 04:12 Urine Color Yellow (Yellow) 09/25/20 17:19 Urine Turbidity Cloudy (Clear) 09/25/20 17:19 Urine pH 7.0 (5.0-7.0) 09/25/20 17:19 Ur Specific [place] 1.012 (1.003-1.030) 09/25/20 17:19 Urine Protein >500 mg/dL (Negative) 09/25/20 17:19 Urine Glucose (UA) 50 mg/dL (Negative) 09/25/20 17:19 Urine Ketones Neg mg/dL (Negative) 09/25/20 17:19 Urine Blood Sm (Negative) 09/25/20 17:19 Urine Nitrite Neg (Negative) 09/25/20 17:19 Urine Bilirubin Neg (Negative) 09/25/20 17:19 Urine Urobilinogen < 2.0 mg/dL (<2.0) 09/25/20 17:19 Ur Leukocyte Esterase Neg (Negative) 09/25/20 17:19 Urine WBC (Auto) 14.0 /HPF (0.0-6.0) H 09/25/20 17:19 Urine RBC (Auto) 101.0 /HPF (0.0-6.0) 09/25/20 17:19 U Epithel Cells (Auto) 1.0 /HPF (0-13.0) 09/25/20 17:19 Urine Bacteria (Auto) 1+ /HPF (Negative) 09/25/20 17:19 Urine HCG, Qual Negative (Negative) 09/25/20 17:19 Urine Opiates Screen Presumptive negative 09/25/20 17:19 Urine Methadone Screen Presumptive negative 09/25/20 17:19 Ur Barbiturates Screen Presumptive negative 09/25/20 17:19 Ur Phencyclidine Scrn Presumptive negative 09/25/20 17:19 Ur Amphetamines Screen Presumptive negative 09/25/20 17:19 U Benzodiazepines Scrn Presumptive negative 09/25/20 17:19 Urine Cocaine Screen Presumptive negative 09/25/20 17:19 U Marijuana (THC) Screen Presumptive negative 09/25/20 17:19 Drugs of Abuse Note Disclamer 09/25/20 17:19 Coronavirus (PCR) Negative (Negative) 09/26/20 Unknown Blood Type B POSITIVE 09/25/20 19:00 Antibody Screen Negative 09/25/20 19:00 Grace/IV: Voiding Method Indwelling Catheter Active Medications - Current Medications Current Medications: Generic Name Dose Route Start Last Admin Trade Name Freq PRN Reason Stop Dose Admin Acetaminophen 650 mg 09/25/20 18:45 Acetaminophen 650 Mg Rect Supp NV Q6H PRN Pain MILD(1-3)/Fever >100.5/RUIZ Acetaminophen 650 mg 09/25/20 18:49 10/01/20 15:54 Acetaminophen 325 Mg Tab PO 650 mg Q6H PRN Administration Pain, Mild (1-3) Albuterol 2.5 mg 09/25/20 18:45 Albuterol 2.5 Mg/3 Ml Nebu IH Q3HRT PRN Shortness Of Breath Lipase/Protease/Amylase 1 each 09/27/20 13:01 Lipase 10,500/Protease 25,000/Amylase 43,750 (Units) Dr Davis FEEDTUBE PRN PRN For Clogged Feeding Tube Aspirin 81 mg 10/01/20 10:00 10/03/20 09:45 Aspirin 81 Mg Tab Chew PO 81 mg QDAY RAMESH Administration Carvedilol 12.5 mg 10/02/20 22:00 10/03/20 09:45 Carvedilol 12.5 Mg Tab PO 12.5 mg BID RAMESH Administration Famotidine 20 mg 09/30/20 10:00 10/03/20 09:46 Famotidine 20 Mg Tab PO 20 mg BID RAMESH Administration Hydromorphone HCl 0.25 mg 09/25/20 18:49 09/30/20 14:05 Hydromorphone 1 Mg/1 Ml Inj IV 0.25 mg Q4H PRN Administration Pain, Moderate (4-6) Hydrophilic Ointment 1 applic 09/25/20 16:52 Lip Therapy Vaseline TP Q2HR PRN Dry Lips Heparin Sodium/Sodium Chloride 25,000 unit in 500 mls @ 20 mls/hr 09/25/20 21:00 10/02/20 21:45 Heparin/ 0.45% Nacl-25,000 Unit/500 Ml IV 900 units/hr TITRATE RAMESH 18 mls/hr Administration Protocol 1,000 UNITS/HR Propofol 1,000 mg in 100 mls @ 3.201 mls/hr 09/26/20 14:00 09/28/20 19:01 Diprivan 10 Mg/Ml IV 0 mcg/kg/min TITR RAMESH 0 mls/hr Titration Protocol 5 MCG/KG/MIN Sodium Chloride 1,000 mls @ 100 mls/hr 10/02/20 18:30 10/03/20 09:46 Nacl 0.9% 1000 Ml IV 100 mls/hr DIRECT RAMESH Administration Labetalol HCl 10 mg 09/27/20 12:51 09/30/20 14:02 Labetalol 20 Mg/4 Ml Inj IV 10 mg Q4H PRN Administration Blood Pressure Levetiracetam 750 mg 09/30/20 22:00 10/03/20 09:45 Levetiracetam 500 Mg/5 Ml Oral Liqd PO 750 mg BID RAMESH Administration Lorazepam 2 mg 09/26/20 13:45 Lorazepam 2 Mg/Ml Vial IV Q4H PRN Seizures Losartan Potassium 50 mg 10/03/20 10:00 10/03/20 09:45 Losartan 50 Mg Tab PO 50 mg QDAY RAMESH Administration Metoclopramide HCl 10 mg 09/30/20 16:33 09/30/20 20:20 Metoclopramide 10 Mg/2 Ml Inj IV 10 mg Q6H PRN Administration Nausea And Vomiting Multi-Ingred Cream/Lotion/Oil/Oint 1 applic 09/25/20 16:52 09/28/20 22:02 Mineral Oil/Petrolatum, White Ophth Oint 3.5 Gm OU 1 applic Q4HR PRN Administration Dry Eye(s) Ondansetron HCl 4 mg 09/30/20 01:25 09/30/20 10:01 Ondansetron 4 Mg/2 Ml Inj IV 4 mg Q8H PRN Administration Nausea And Vomiting Scopolamine 1 each 10/01/20 16:00 10/02/20 09:43 Scopolamine Transdermal Patch 72 Hr TD 1 each Q72HR RAMESH Administration Simple Syrup 15 ml 09/27/20 13:01 Simple Syrup 15 Ml FEEDTUBE PRN PRN Hypoglycemia Simple Syrup 30 ml 09/27/20 13:01 09/29/20 06:13 Simple Syrup 15 Ml FEEDTUBE 30 ml PRN PRN Administration Hypoglycemia Sodium Bicarbonate 325 mg 09/27/20 13:01 Sodium Bicarbonate 325 Mg Tab FEEDTUBE PRN PRN For Clogged Feeding Tube Sodium Chloride 10 ml 09/25/20 22:00 10/03/20 09:46 Sodium Chloride 0.9% 10 Ml Flush Syringe IV 10 ml BID RAMESH Administration Sodium Chloride 10 ml 09/25/20 18:45 Sodium Chloride 0.9% 10 Ml Flush Syringe IV PRN PRN LINE FLUSH Nutrition/Malnutrition Assess - Dietary Evaluation Nutrition/Malnutrition Findings: Nutrition Notes Start: 09/27/20 12:48 Freq: Status: Active Protocol: Document 10/03/20 13:47 NHALL (Rec: 10/03/20 13:48 NHALL [id number]) Nutrition Notes Initial or Follow up Brief Note Subjective/Other Information Change F/U date to 10/07. Nutrition Intervention Follow-Up By: 10/07/20 Additional Comments F/U: stable TF, vent status <MAX FERMIN - Last Filed: 10/03/20 18:02> Assessment and Plan Assessment and plan: Patient seen and examined by myself, agree with assessment and plan as outlined by nurse practitioner as above. Patient continues to be completely encephalopathic and nonresponsive. On the vent. Spoke with family at the bedside pertaining to patient's anoxic encephalopathy. Case management is working on placement with the family. Poor prognosis at this time. Hospitalist Physical - Constitutional Vitals: Temp Pulse Resp BP Pulse Ox 100.8 F H 76 16 112/42 97 10/03/20 16:00 10/03/20 16:30 10/03/20 16:30 10/03/20 16:30 10/03/20 16:30 HEART Score - HEART Score Troponin: Troponin T < 0.010 ng/mL (0.00-0.029) 10/02/20 06:48 Results - Labs CBC & Chem 7: 10/03/20 07:24 10/03/20 07:24 Labs: Laboratory Last Values WBC 12.9 K/mm3 (4.5-11.0) H 10/03/20 07:24 RBC 3.73 M/mm3 (3.65-5.03) 10/03/20 07:24 Hgb 8.9 gm/dl (10.1-14.3) L 10/03/20 07:24 Hct 29.6 % (30.3-42.9) L 10/03/20 07:24 MCV 79 fl (79-97) 10/03/20 07:24 MCH 24 pg (28-32) L 10/03/20 07:24 MCHC 30 % (30-34) 10/03/20 07:24 RDW 21.9 % (13.2-15.2) H 10/03/20 07:24 Plt Count 366 K/mm3 (140-440) 10/03/20 07:24 Lymph % (Auto) 20.1 % (13.4-35.0) 09/30/20 15:05 [place] % (Auto) 13.5 % (0.0-7.3) H 09/30/20 15:05 Eos % (Auto) 0.4 % (0.0-4.3) 09/30/20 15:05 Baso % (Auto) 1.0 % (0.0-1.8) 09/30/20 15:05 Lymph # (Auto) 2.5 K/mm3 (1.2-5.4) 09/30/20 15:05 [place] # (Auto) 1.7 K/mm3 (0.0-0.8) H 09/30/20 15:05 Eos # (Auto) 0.0 K/mm3 (0.0-0.4) 09/30/20 15:05 Baso # (Auto) 0.1 K/mm3 (0.0-0.1) 09/30/20 15:05 Seg Neutrophils % 65.0 % (40.0-70.0) 09/30/20 15:05 Seg Neutrophils # 8.1 K/mm3 (1.8-7.7) H 09/30/20 15:05 PT 13.7 Sec. (12.2-14.9) 09/25/20 18:15 INR 1.00 (0.87-1.13) 09/25/20 18:15 APTT 21.1 Sec. (24.2-36.6) L 09/25/20 18:15 Heparin Anti-Xa Level 0.32 U.I./ml (0.3-0.7) 10/02/20 19:58 ABG pH 7.424 (7.320-7.450) 10/01/20 04:12 POC ABG pCO2 41.6 mmHg (32.0-48.0) 10/01/20 04:12 POC ABG pO2 73.0 mmHg (83-108) L 10/01/20 04:12 POC ABG HCO3 26.6 10/01/20 04:12 ABG O2 Saturation 94.3 (0-100) 10/01/20 04:12 POC ABG Base Excess 2.0 10/01/20 04:12 ABG Hemoglobin 10.0 (12.0-17.5) L 10/01/20 04:12 ABG Oxyhemoglobin 93.7 (94-98) L 10/01/20 04:12 ABG Methemoglobin 0.3 (0.0-1.5) 10/01/20 04:12 ABG Sodium 146.4 mmol/L (136.0-145.0) H 10/01/20 04:12 ABG Potassium 3.8 mmol/L (3.40-4.50) 10/01/20 04:12 ABG Chloride 110.0 mmol/L (98-107) H 10/01/20 04:12 ABG Glucose 124 mg/dL (65-95) H 10/01/20 04:12 Carboxyhemoglobin 0.3 (0.5-1.5) L 10/01/20 04:12 FiO2 % 25.0 10/01/20 04:12 Sodium 147 mmol/L (137-145) H 10/03/20 07:24 Potassium 4.2 mmol/L (3.6-5.0) 10/03/20 07:24 Chloride 110.4 mmol/L (98-107) H 10/03/20 07:24 Carbon Dioxide 29 mmol/L (22-30) 10/03/20 07:24 Anion Gap 12 mmol/L 10/03/20 07:24 BUN 13 mg/dL (7-17) 10/03/20 07:24 Creatinine 0.8 mg/dL (0.6-1.2) 10/03/20 07:24 Estimated GFR > 60 ml/min 10/03/20 07:24 BUN/Creatinine Ratio 16 % 10/03/20 07:24 Glucose 128 mg/dL (65-100) H 10/03/20 07:24 POC Glucose 102 mg/dL (70-105) 10/03/20 11:12 Lactic Acid 1.00 mmol/L (0.7-2.0) 09/27/20 04:41 Calcium 9.6 mg/dL (8.4-10.2) 10/03/20 07:24 Phosphorus 2.20 mg/dL (2.5-4.5) L 10/02/20 06:48 Magnesium 2.20 mg/dL (1.7-2.3) 10/02/20 06:48 Total Bilirubin 0.20 mg/dL (0.1-1.2) 09/28/20 05:02 AST 129 units/L (5-40) H 09/28/20 05:02 ALT 60 units/L (7-56) H 09/28/20 05:02 Alkaline Phosphatase 84 units/L (35-129) 09/28/20 05:02 Troponin T < 0.010 ng/mL (0.00-0.029) 10/02/20 06:48 C-Reactive Protein 4.30 mg/dL (0.00-1.30) H 09/26/20 15:45 Total Protein 6.9 g/dL (6.3-8.2) 09/28/20 05:02 Albumin 3.7 g/dL (3.9-5) L 09/28/20 05:02 Albumin/Globulin Ratio 1.2 % 09/28/20 05:02 Triglycerides 40 mg/dL (2-149) 09/25/20 23:13 Cholesterol 132 mg/dL (50-199) 09/25/20 23:13 LDL Cholesterol Direct 66 mg/dL (50-130) 09/25/20 23:13 HDL Cholesterol 60 mg/dL (40-59) H 09/25/20 23:13 Cholesterol/HDL Ratio 2.20 % 09/25/20 23:13 Procalcitonin 0.31 ng/mL (<0.15) 09/26/20 15:45 Arterial Blood Glucose 124 mg/dL (65-95) H 10/01/20 04:12 Arterial Blood Ionized Calcium 4.8 mg/dL (4.6-5.3) 10/01/20 04:12 Urine Color Yellow (Yellow) 09/25/20 17:19 Urine Turbidity Cloudy (Clear) 09/25/20 17:19 Urine pH 7.0 (5.0-7.0) 09/25/20 17:19 Ur Specific [place] 1.012 (1.003-1.030) 09/25/20 17:19 Urine Protein >500 mg/dL (Negative) 09/25/20 17:19 Urine Glucose (UA) 50 mg/dL (Negative) 09/25/20 17:19 Urine Ketones Neg mg/dL (Negative) 09/25/20 17:19 Urine Blood Sm (Negative) 09/25/20 17:19 Urine Nitrite Neg (Negative) 09/25/20 17:19 Urine Bilirubin Neg (Negative) 09/25/20 17:19 Urine Urobilinogen < 2.0 mg/dL (<2.0) 09/25/20 17:19 Ur Leukocyte Esterase Neg (Negative) 09/25/20 17:19 Urine WBC (Auto) 14.0 /HPF (0.0-6.0) H 09/25/20 17:19 Urine RBC (Auto) 101.0 /HPF (0.0-6.0) 09/25/20 17:19 U Epithel Cells (Auto) 1.0 /HPF (0-13.0) 09/25/20 17:19 Urine Bacteria (Auto) 1+ /HPF (Negative) 09/25/20 17:19 Urine HCG, Qual Negative (Negative) 09/25/20 17:19 Urine Opiates Screen Presumptive negative 09/25/20 17:19 Urine Methadone Screen Presumptive negative 09/25/20 17:19 Ur Barbiturates Screen Presumptive negative 09/25/20 17:19 Ur Phencyclidine Scrn Presumptive negative 09/25/20 17:19 Ur Amphetamines Screen Presumptive negative 09/25/20 17:19 U Benzodiazepines Scrn Presumptive negative 09/25/20 17:19 Urine Cocaine Screen Presumptive negative 09/25/20 17:19 U Marijuana (THC) Screen Presumptive negative 09/25/20 17:19 Drugs of Abuse Note Disclamer 09/25/20 17:19 Coronavirus (PCR) Negative (Negative) 09/26/20 Unknown Blood Type B POSITIVE 09/25/20 19:00 Antibody Screen Negative 09/25/20 19:00 Grace/IV: Voiding Method Indwelling Catheter Active Medications - Current Medications Current Medications: Generic Name Dose Route Start Last Admin Trade Name Freq PRN Reason Stop Dose Admin Acetaminophen 650 mg 09/25/20 18:45 Acetaminophen 650 Mg Rect Supp NV Q6H PRN Pain MILD(1-3)/Fever >100.5/RUIZ Acetaminophen 650 mg 09/25/20 18:49 10/01/20 15:54 Acetaminophen 325 Mg Tab PO 650 mg Q6H PRN Administration Pain, Mild (1-3) Albuterol 2.5 mg 09/25/20 18:45 Albuterol 2.5 Mg/3 Ml Nebu IH Q3HRT PRN Shortness Of Breath Lipase/Protease/Amylase 1 each 09/27/20 13:01 Lipase 10,500/Protease 25,000/Amylase 43,750 (Units) Dr Davis FEEDTUBE PRN PRN For Clogged Feeding Tube Aspirin 81 mg 10/01/20 10:00 10/03/20 09:45 Aspirin 81 Mg Tab Chew PO 81 mg QDAY RAMESH Administration Carvedilol 12.5 mg 10/02/20 22:00 10/03/20 09:45 Carvedilol 12.5 Mg Tab PO 12.5 mg BID RAMESH Administration Famotidine 20 mg 09/30/20 10:00 10/03/20 09:46 Famotidine 20 Mg Tab PO 20 mg BID RAMESH Administration Hydromorphone HCl 0.25 mg 09/25/20 18:49 09/30/20 14:05 Hydromorphone 1 Mg/1 Ml Inj IV 0.25 mg Q4H PRN Administration Pain, Moderate (4-6) Hydrophilic Ointment 1 applic 09/25/20 16:52 Lip Therapy Vaseline TP Q2HR PRN Dry Lips Heparin Sodium/Sodium Chloride 25,000 unit in 500 mls @ 20 mls/hr 09/25/20 21:00 10/02/20 21:45 Heparin/ 0.45% Nacl-25,000 Unit/500 Ml IV 900 units/hr TITRATE RAMESH 18 mls/hr Administration Protocol 1,000 UNITS/HR Propofol 1,000 mg in 100 mls @ 3.201 mls/hr 09/26/20 14:00 09/28/20 19:01 Diprivan 10 Mg/Ml IV 0 mcg/kg/min TITR RAMESH 0 mls/hr Titration Protocol 5 MCG/KG/MIN Sodium Chloride 1,000 mls @ 100 mls/hr 10/02/20 18:30 10/03/20 09:46 Nacl 0.9% 1000 Ml IV 100 mls/hr DIRECT RAMESH Administration Sodium Phosphate 15 mmol/ 155 mls @ 40 mls/hr 10/03/20 17:00 Sodium Chloride IV 10/03/20 20:52 Q4H ONE Labetalol HCl 10 mg 09/27/20 12:51 09/30/20 14:02 Labetalol 20 Mg/4 Ml Inj IV 10 mg Q4H PRN Administration Blood Pressure Levetiracetam 750 mg 09/30/20 22:00 10/03/20 09:45 Levetiracetam 500 Mg/5 Ml Oral Liqd PO 750 mg BID RAMESH Administration Lorazepam 2 mg 09/26/20 13:45 Lorazepam 2 Mg/Ml Vial IV Q4H PRN Seizures Losartan Potassium 50 mg 10/03/20 10:00 10/03/20 09:45 Losartan 50 Mg Tab PO 50 mg QDAY RAMESH Administration Metoclopramide HCl 10 mg 09/30/20 16:33 09/30/20 20:20 Metoclopramide 10 Mg/2 Ml Inj IV 10 mg Q6H PRN Administration Nausea And Vomiting Multi-Ingred Cream/Lotion/Oil/Oint 1 applic 09/25/20 16:52 09/28/20 22:02 Mineral Oil/Petrolatum, White Ophth Oint 3.5 Gm OU 1 applic Q4HR PRN Administration Dry Eye(s) Ondansetron HCl 4 mg 09/30/20 01:25 09/30/20 10:01 Ondansetron 4 Mg/2 Ml Inj IV 4 mg Q8H PRN Administration Nausea And Vomiting Scopolamine 1 each 10/01/20 16:00 10/02/20 09:43 Scopolamine Transdermal Patch 72 Hr TD 1 each Q72HR RAMESH Administration Simple Syrup 15 ml 09/27/20 13:01 Simple Syrup 15 Ml FEEDTUBE PRN PRN Hypoglycemia Simple Syrup 30 ml 09/27/20 13:01 09/29/20 06:13 Simple Syrup 15 Ml FEEDTUBE 30 ml PRN PRN Administration Hypoglycemia Sodium Bicarbonate 325 mg 09/27/20 13:01 Sodium Bicarbonate 325 Mg Tab FEEDTUBE PRN PRN For Clogged Feeding Tube Sodium Chloride 10 ml 09/25/20 22:00 10/03/20 09:46 Sodium Chloride 0.9% 10 Ml Flush Syringe IV 10 ml BID RAMESH Administration Sodium Chloride 10 ml 09/25/20 18:45 Sodium Chloride 0.9% 10 Ml Flush Syringe IV PRN PRN LINE FLUSH Nutrition/Malnutrition Assess - Dietary Evaluation Nutrition/Malnutrition Findings: Nutrition Notes Start: 09/27/20 12:48 Freq: Status: Active Protocol: Document 10/03/20 13:47 ARMANDO (Rec: 10/03/20 13:48 [facility] [id number]) Nutrition Notes Initial or Follow up Brief Note Subjective/Other Information Change F/U date to 10/07. Nutrition Intervention Follow-Up By: 10/07/20 Additional Comments F/U: stable TF, vent status
[2020-10-03] MEDS: ACETAMINOPHEN 325 MG TAB PO PRN (21:24)
[2020-10-04] MEDS: HEPARIN/ 0.45% NACL DRIP 25,000 UNIT/500 ML BAG IV SCH (01:49)
[2020-10-04] MEDS: ACETAMINOPHEN 325 MG TAB PO PRN (04:17)
[2020-10-04] MEDS: SODIUM CHLORIDE 0.9% 1000 ML 1,000 ML IV SCH (05:19)
[2020-10-04] MEDS: carvediloL 12.5 MG TAB PO SCH ×2 (09:05→22:01)
[2020-10-04] MEDS: FAMOTIDINE 20 MG TAB PO SCH ×2 (09:05→22:02)
[2020-10-04] MEDS: LOSARTAN 50 MG TAB PO SCH (09:05)
[2020-10-04] MEDS: levETIRAcetam 500 MG/5 ML ORAL LIQD PO SCH ×2 (09:06→22:02)
[2020-10-04] MEDS: ASPIRIN 81 MG TAB CHEW PO SCH (09:06)
--- NOTE | 2020-10-04 11:39 | Progress Note ---
Assessment and Plan Cardiac arrest with return of spontaneous circulation. Acute respiratory failure, on mechanical ventilatory support. Acute toxic metabolic encephalopathy. Possible anoxic encephalopathy. Obesity. History of obesity hypoventilation syndrome. Leukocytosis. Likely aspiration pneumonia, bilateral. Anemia that is microcytic. Lactic acidosis. Elevated serum transaminases. Non-ST elevation myocardial infarction Hypernatremia - family wanted input from [facility], per Case management during IDT, [facility] was in touch with the family and explained why she is not a suitable candidate for the program - Monitor hemodynamics closely while she is on heart failure measures - continue IV Heparin drip, if lower extremity dopplers are negative can change therapeutic heparin to VTE prophylaxis dosing - increase free water flushes to treat hypernatremia. Monitor sodium levels - continue to titrate supplemental oxygen to keep SpO2 89-92% - VAP bundle addressed, aspiration precautions HOB >40 - continue lung protective strategies - continue bronchodilators with pulmonary hygiene per RT - wean per pulmonary driven protocols otherwise - continue Daily SBT assessment as tolerated - continue accuchecks with glycemic control per SSI (While critically ill target blood glucose of 140-180 mg/dL; avoid hypoglycemia) - sedation prn for target RASS 0 to -1 - avoid nephrotoxins, renally dose all medications - continue to avoid benzodiazepines, reduce the possibility of delirium - completed ABs per ID recs , monitor and trend temperature curve and WCC - prn analgesia per CPOT score - Maintenance of sleep-wake cycle, avoid delirium - continue enteral nutritional support at goal rate as tolerated - Stress ulcer prophylaxis - PT/OT/ROM exercises - continue mobility, off loading , frequent turning per facility protocols for pressure ulcer prevention - continue other care per attending / other consultants - discharge planning ongoing concurrently CONDITION: CRITICAL PROGNOSIS: GUARDED CODE STATUS: FULL CODE The high probability of a clinically significant, sudden or life-threatening deterioration of the [respiratory, cardiovascular & neurologic] system(s) required my full and direct attention, intervention and personal management. The aggregate critical care time was [35] minutes without overlap. Time includes spent on; [x] Data Review and interpretation [x] Patient assessment and monitoring of vital signs [x] Documentation [x] Medication orders and management Subjective Date of service: 10/04/20 Principal diagnosis: Cardiac arrest; Ac. respiratory failure; Anoxic encephalopathy; PNA; NSTEMI Interval history: Patient is seen today for: Cardiac arrest with ROSC; Acute respiratory failure; Anoxic encephalopathy; Obesity; OHS; Aspiration pneumonia; NSTEMI Seen and examined at bedside; 24hour events reviewed; nursing and respiratory care staff consulted; no adverse overnight events reported to me; resting in bed; remains on MVS; tolerating SBT -CPAP 01/21 ; mental status changes persist. Her aunt is at the bedside. Remains on heparin infusion Objective Vital Signs - 12hr 10/04/20 10/04/20 10/04/20 00:00 00:30 00:50 Temperature Pulse Rate 62 69 64 Pulse Rate [ 60 From Monitor] Respiratory 15 19 Rate Blood Pressure 115/45 121/56 116/44 O2 Sat by Pulse 100 100 100 Oximetry 10/04/20 10/04/20 10/04/20 01:00 01:30 02:00 Temperature Pulse Rate 66 64 68 Pulse Rate [ From Monitor] Respiratory 13 16 13 Rate Blood Pressure 121/49 122/45 122/53 O2 Sat by Pulse 100 100 100 Oximetry 10/04/20 10/04/20 10/04/20 02:30 03:00 03:30 Temperature Pulse Rate 64 71 86 Pulse Rate [ From Monitor] Respiratory 14 16 15 Rate Blood Pressure 123/48 129/48 128/49 O2 Sat by Pulse 100 100 100 Oximetry 10/04/20 10/04/20 10/04/20 03:54 04:00 04:05 Temperature 100.1 F H Pulse Rate 65 70 Pulse Rate [ 60 From Monitor] Respiratory 13 Rate Blood Pressure 127/47 127/47 O2 Sat by Pulse 100 100 Oximetry 10/04/20 10/04/20 10/04/20 04:30 05:00 05:30 Temperature Pulse Rate 63 58 L 62 Pulse Rate [ From Monitor] Respiratory 18 14 17 Rate Blood Pressure 130/48 116/43 122/48 O2 Sat by Pulse 100 100 99 Oximetry 10/04/20 10/04/20 10/04/20 06:00 06:30 07:00 Temperature 98.5 F Pulse Rate 61 58 L 62 Pulse Rate [ From Monitor] Respiratory 14 14 15 Rate Blood Pressure 121/48 125/51 132/46 O2 Sat by Pulse 98 98 100 Oximetry 10/04/20 10/04/20 10/04/20 07:20 07:30 08:00 Temperature Pulse Rate 69 90 70 Pulse Rate [ 78 From Monitor] Respiratory 16 14 Rate Blood Pressure 135/58 135/58 154/57 O2 Sat by Pulse 100 99 99 Oximetry 10/04/20 10/04/20 10/04/20 08:10 08:30 09:00 Temperature Pulse Rate 61 64 Pulse Rate [ From Monitor] Respiratory 27 H 27 H Rate Blood Pressure 162/54 154/57 160/62 O2 Sat by Pulse 100 99 100 Oximetry 10/04/20 10/04/20 10/04/20 09:05 09:30 10:00 Temperature Pulse Rate 70 66 70 Pulse Rate [ From Monitor] Respiratory 26 H 26 H Rate Blood Pressure 160/62 153/51 167/50 O2 Sat by Pulse 100 100 Oximetry 10/04/20 11:22 Temperature Pulse Rate 69 Pulse Rate [ From Monitor] Respiratory 27 H Rate Blood Pressure 137/48 O2 Sat by Pulse 98 Oximetry Constitutional: no acute distress, other (middle aged obese female with normal respiratory effort at rest on MVS) Eyes: non-icteric ENT: oropharynx moist, other (ETT 23 cm JAH) Neck: supple, no lymphadenopathy, no JVD Effort: normal Ascultation: Bilateral: rhonchi Percussion: Bilateral: not dull Cardiovascular: regular rate and rhythm, other (S1,S2) Gastrointestinal: normoactive bowel sounds, soft, non-tender, non-distended Integumentary: normal Extremities: no cyanosis, no edema, pulses normal, no ischemia or petechiae Neurologic: pupils equal and round, unable to assess Psychiatric: other (unable to assess re: AMS) CBC and BMP: 10/03/20 07:24 10/03/20 07:24 ABG, PT/INR, D-dimer: ABG ABG pH 7.424 (7.320-7.450) 10/01/20 04:12 POC ABG pCO2 41.6 mmHg (32.0-48.0) 10/01/20 04:12 POC ABG pO2 73.0 mmHg (83-108) L 10/01/20 04:12 POC ABG HCO3 26.6 10/01/20 04:12 ABG O2 Saturation 94.3 (0-100) 10/01/20 04:12 PT/INR, D-dimer PT 13.7 Sec. (12.2-14.9) 09/25/20 18:15 INR 1.00 (0.87-1.13) 09/25/20 18:15 Abnormal lab findings: Abnormal Labs 09/25/20 09/25/20 09/25/20 17:19 17:21 18:15 WBC 13.8 H Hgb 9.9 L Hct MCV 76 L MCH 23 L RDW 17.9 H Lymph % (Auto) [place] % (Auto) Lymph # (Auto) [place] # (Auto) Seg Neutrophils % 78.6 H Seg Neutrophils # 10.8 H APTT Heparin Anti-Xa Level ABG pH POC ABG pCO2 26.2 L POC ABG pO2 554.5 H ABG Hemoglobin 9.0 L ABG Oxyhemoglobin 99.0 H ABG Sodium 134.5 L ABG Potassium ABG Chloride ABG Glucose 220 H Carboxyhemoglobin Sodium Potassium Chloride BUN Creatinine Glucose POC Glucose Lactic Acid Calcium Phosphorus AST ALT Troponin T C-Reactive Protein Albumin HDL Cholesterol Arterial Blood Glucose 220 H Arterial Blood Ionized Calcium 4.2 L Urine WBC (Auto) 14.0 H 09/25/20 09/25/20 09/25/20 18:15 18:15 18:15 WBC Hgb Hct MCV MCH RDW Lymph % (Auto) [place] % (Auto) Lymph # (Auto) [place] # (Auto) Seg Neutrophils % Seg Neutrophils # APTT 21.1 L Heparin Anti-Xa Level ABG pH POC ABG pCO2 POC ABG pO2 ABG Hemoglobin ABG Oxyhemoglobin ABG Sodium ABG Potassium ABG Chloride ABG Glucose Carboxyhemoglobin Sodium Potassium Chloride BUN Creatinine Glucose 113 H POC Glucose Lactic Acid 2.60 H* Calcium Phosphorus AST 162 H ALT 131 H Troponin T 0.096 H C-Reactive Protein Albumin HDL Cholesterol Arterial Blood Glucose Arterial Blood Ionized Calcium Urine WBC (Auto) 09/25/20 09/25/20 09/26/20 23:13 23:13 03:15 WBC Hgb Hct MCV MCH RDW Lymph % (Auto) [place] % (Auto) Lymph # (Auto) [place] # (Auto) Seg Neutrophils % Seg Neutrophils # APTT Heparin Anti-Xa Level ABG pH 7.451 H POC ABG pCO2 27.1 L POC ABG pO2 ABG Hemoglobin 10.4 L ABG Oxyhemoglobin ABG Sodium 135.2 L ABG Potassium ABG Chloride 108.0 H ABG Glucose 137 H Carboxyhemoglobin Sodium Potassium Chloride BUN Creatinine Glucose POC Glucose Lactic Acid 2.90 H* Calcium Phosphorus AST ALT Troponin T 0.170 H* D C-Reactive Protein Albumin HDL Cholesterol 60 H Arterial Blood Glucose 137 H Arterial Blood Ionized Calcium 4.2 L Urine WBC (Auto) 09/26/20 09/26/20 09/26/20 05:09 05:09 05:09 WBC 15.8 H Hgb 10.0 L Hct MCV 77 L MCH 24 L RDW 17.8 H Lymph % (Auto) 7.2 L [place] % (Auto) Lymph # (Auto) 1.1 L [place] # (Auto) 1.0 H Seg Neutrophils % 86.1 H Seg Neutrophils # 13.6 H APTT Heparin Anti-Xa Level ABG pH POC ABG pCO2 POC ABG pO2 ABG Hemoglobin ABG Oxyhemoglobin ABG Sodium ABG Potassium ABG Chloride ABG Glucose Carboxyhemoglobin Sodium Potassium Chloride BUN Creatinine Glucose 114 H POC Glucose Lactic Acid 2.40 H* Calcium 8.1 L Phosphorus AST 112 H ALT 103 H Troponin T C-Reactive Protein Albumin 3.8 L HDL Cholesterol Arterial Blood Glucose Arterial Blood Ionized Calcium Urine WBC (Auto) 09/26/20 09/27/20 09/27/20 15:45 03:33 04:41 WBC Hgb 9.0 L Hct 28.6 L MCV MCH RDW Lymph % (Auto) [place] % (Auto) Lymph # (Auto) [place] # (Auto) Seg Neutrophils % Seg Neutrophils # APTT Heparin Anti-Xa Level ABG pH POC ABG pCO2 POC ABG pO2 141.6 H ABG Hemoglobin 9.3 L ABG Oxyhemoglobin ABG Sodium ABG Potassium 3.2 L ABG Chloride 108.0 H ABG Glucose 118 H Carboxyhemoglobin Sodium Potassium Chloride BUN Creatinine Glucose POC Glucose Lactic Acid Calcium Phosphorus 2.20 L AST ALT Troponin T C-Reactive Protein 4.30 H Albumin HDL Cholesterol Arterial Blood Glucose 118 H Arterial Blood Ionized Calcium 4.2 L Urine WBC (Auto) 09/27/20 09/27/20 09/28/20 04:41 22:53 04:00 WBC Hgb Hct MCV MCH RDW Lymph % (Auto) [place] % (Auto) Lymph # (Auto) [place] # (Auto) Seg Neutrophils % Seg Neutrophils # APTT Heparin Anti-Xa Level 0.75 H ABG pH 7.467 H POC ABG pCO2 POC ABG pO2 78.9 L ABG Hemoglobin 9.8 L ABG Oxyhemoglobin ABG Sodium ABG Potassium ABG Chloride ABG Glucose 141 H Carboxyhemoglobin Sodium Potassium Chloride BUN Creatinine Glucose POC Glucose 109 H Lactic Acid Calcium Phosphorus AST ALT Troponin T C-Reactive Protein Albumin HDL Cholesterol Arterial Blood Glucose 141 H Arterial Blood Ionized Calcium Urine WBC (Auto) 09/28/20 09/28/20 09/28/20 05:02 05:02 17:42 WBC 11.9 H Hgb 9.3 L Hct 29.5 L MCV 76 L MCH 24 L RDW 19.4 H Lymph % (Auto) [place] % (Auto) 11.1 H Lymph # (Auto) [place] # (Auto) 1.3 H Seg Neutrophils % 72.5 H Seg Neutrophils # 8.6 H APTT Heparin Anti-Xa Level ABG pH POC ABG pCO2 POC ABG pO2 ABG Hemoglobin ABG Oxyhemoglobin ABG Sodium ABG Potassium ABG Chloride ABG Glucose Carboxyhemoglobin Sodium Potassium 3.4 L Chloride BUN Creatinine Glucose 126 H POC Glucose 69 L Lactic Acid Calcium Phosphorus AST 129 H ALT 60 H Troponin T C-Reactive Protein Albumin 3.7 L HDL Cholesterol Arterial Blood Glucose Arterial Blood Ionized Calcium Urine WBC (Auto) 09/29/20 09/29/20 09/29/20 04:00 05:53 08:39 WBC Hgb 10.0 L Hct MCV MCH RDW Lymph % (Auto) [place] % (Auto) Lymph # (Auto) [place] # (Auto) Seg Neutrophils % Seg Neutrophils # APTT Heparin Anti-Xa Level ABG pH POC ABG pCO2 POC ABG pO2 81.1 L ABG Hemoglobin 11.0 L ABG Oxyhemoglobin ABG Sodium ABG Potassium ABG Chloride 110.0 H ABG Glucose 129 H Carboxyhemoglobin Sodium Potassium Chloride BUN Creatinine Glucose POC Glucose 58 L Lactic Acid Calcium Phosphorus AST ALT Troponin T C-Reactive Protein Albumin HDL Cholesterol Arterial Blood Glucose 129 H Arterial Blood Ionized Calcium Urine WBC (Auto) 09/30/20 09/30/20 09/30/20 00:10 10:45 15:05 WBC 12.5 H Hgb 9.9 L Hct MCV 78 L MCH 24 L RDW 21.0 H Lymph % (Auto) [place] % (Auto) 13.5 H Lymph # (Auto) [place] # (Auto) 1.7 H Seg Neutrophils % Seg Neutrophils # 8.1 H APTT Heparin Anti-Xa Level ABG pH 7.469 H POC ABG pCO2 POC ABG pO2 ABG Hemoglobin 10.4 L ABG Oxyhemoglobin ABG Sodium 146.2 H ABG Potassium ABG Chloride 109.0 H ABG Glucose 155 H Carboxyhemoglobin Sodium Potassium Chloride BUN Creatinine Glucose POC Glucose 131 H Lactic Acid Calcium Phosphorus AST ALT Troponin T C-Reactive Protein Albumin HDL Cholesterol Arterial Blood Glucose 155 H Arterial Blood Ionized Calcium Urine WBC (Auto) 09/30/20 09/30/20 10/01/20 15:05 17:37 00:29 WBC Hgb Hct MCV MCH RDW Lymph % (Auto) [place] % (Auto) Lymph # (Auto) [place] # (Auto) Seg Neutrophils % Seg Neutrophils # APTT Heparin Anti-Xa Level ABG pH POC ABG pCO2 POC ABG pO2 ABG Hemoglobin ABG Oxyhemoglobin ABG Sodium ABG Potassium ABG Chloride ABG Glucose Carboxyhemoglobin Sodium Potassium Chloride 109.1 H BUN 18 H Creatinine 1.4 H Glucose 122 H POC Glucose 127 H 119 H Lactic Acid Calcium Phosphorus 2.00 L AST ALT Troponin T C-Reactive Protein Albumin HDL Cholesterol Arterial Blood Glucose Arterial Blood Ionized Calcium Urine WBC (Auto) 10/01/20 10/01/20 10/01/20 04:12 05:56 05:56 WBC 14.2 H Hgb 9.7 L Hct MCV 78 L MCH 23 L RDW 21.1 H Lymph % (Auto) [place] % (Auto) Lymph # (Auto) [place] # (Auto) Seg Neutrophils % Seg Neutrophils # APTT Heparin Anti-Xa Level ABG pH POC ABG pCO2 POC ABG pO2 73.0 L ABG Hemoglobin 10.0 L ABG Oxyhemoglobin 93.7 L ABG Sodium 146.4 H ABG Potassium ABG Chloride 110.0 H ABG Glucose 124 H Carboxyhemoglobin 0.3 L Sodium 147 H Potassium Chloride 109.6 H BUN Creatinine Glucose 109 H POC Glucose Lactic Acid Calcium Phosphorus AST ALT Troponin T C-Reactive Protein Albumin HDL Cholesterol Arterial Blood Glucose 124 H Arterial Blood Ionized Calcium Urine WBC (Auto) 10/01/20 10/01/20 10/02/20 19:21 23:17 05:27 WBC Hgb Hct MCV MCH RDW Lymph % (Auto) [place] % (Auto) Lymph # (Auto) [place] # (Auto) Seg Neutrophils % Seg Neutrophils # APTT Heparin Anti-Xa Level ABG pH POC ABG pCO2 POC ABG pO2 ABG Hemoglobin ABG Oxyhemoglobin ABG Sodium ABG Potassium ABG Chloride ABG Glucose Carboxyhemoglobin Sodium Potassium Chloride BUN Creatinine Glucose POC Glucose 126 H 160 H 121 H Lactic Acid Calcium Phosphorus AST ALT Troponin T C-Reactive Protein Albumin HDL Cholesterol Arterial Blood Glucose Arterial Blood Ionized Calcium Urine WBC (Auto) 10/02/20 10/02/20 10/02/20 06:48 06:48 11:51 WBC 14.2 H Hgb 9.6 L Hct MCV MCH 25 L RDW 21.7 H Lymph % (Auto) [place] % (Auto) Lymph # (Auto) [place] # (Auto) Seg Neutrophils % Seg Neutrophils # APTT Heparin Anti-Xa Level ABG pH POC ABG pCO2 POC ABG pO2 ABG Hemoglobin ABG Oxyhemoglobin ABG Sodium ABG Potassium ABG Chloride ABG Glucose Carboxyhemoglobin Sodium 147 H Potassium Chloride 110.4 H BUN Creatinine Glucose 134 H POC Glucose 121 H Lactic Acid Calcium Phosphorus 2.20 L AST ALT Troponin T C-Reactive Protein Albumin HDL Cholesterol Arterial Blood Glucose Arterial Blood Ionized Calcium Urine WBC (Auto) 10/02/20 10/03/20 10/03/20 17:19 00:35 07:24 WBC 12.9 H Hgb 8.9 L Hct 29.6 L MCV MCH 24 L RDW 21.9 H Lymph % (Auto) [place] % (Auto) Lymph # (Auto) [place] # (Auto) Seg Neutrophils % Seg Neutrophils # APTT Heparin Anti-Xa Level ABG pH POC ABG pCO2 POC ABG pO2 ABG Hemoglobin ABG Oxyhemoglobin ABG Sodium ABG Potassium ABG Chloride ABG Glucose Carboxyhemoglobin Sodium Potassium Chloride BUN Creatinine Glucose POC Glucose 107 H 112 H Lactic Acid Calcium Phosphorus AST ALT Troponin T C-Reactive Protein Albumin HDL Cholesterol Arterial Blood Glucose Arterial Blood Ionized Calcium Urine WBC (Auto) 10/03/20 10/03/20 10/03/20 07:24 17:27 20:19 WBC Hgb Hct MCV MCH RDW Lymph % (Auto) [place] % (Auto) Lymph # (Auto) [place] # (Auto) Seg Neutrophils % Seg Neutrophils # APTT Heparin Anti-Xa Level 0.18 L ABG pH POC ABG pCO2 POC ABG pO2 ABG Hemoglobin ABG Oxyhemoglobin ABG Sodium ABG Potassium ABG Chloride ABG Glucose Carboxyhemoglobin Sodium 147 H Potassium Chloride 110.4 H BUN Creatinine Glucose 128 H POC Glucose 136 H Lactic Acid Calcium Phosphorus AST ALT Troponin T C-Reactive Protein Albumin HDL Cholesterol Arterial Blood Glucose Arterial Blood Ionized Calcium Urine WBC (Auto) 10/03/20 10/04/20 10/04/20 23:34 04:07 06:12 WBC Hgb Hct MCV MCH RDW Lymph % (Auto) [place] % (Auto) Lymph # (Auto) [place] # (Auto) Seg Neutrophils % Seg Neutrophils # APTT Heparin Anti-Xa Level 0.25 L ABG pH POC ABG pCO2 POC ABG pO2 ABG Hemoglobin ABG Oxyhemoglobin ABG Sodium ABG Potassium ABG Chloride ABG Glucose Carboxyhemoglobin Sodium Potassium Chloride BUN Creatinine Glucose POC Glucose 119 H 128 H Lactic Acid Calcium Phosphorus AST ALT Troponin T C-Reactive Protein Albumin HDL Cholesterol Arterial Blood Glucose Arterial Blood Ionized Calcium Urine WBC (Auto) Chest x-ray: image reviewed Allied health notes reviewed: RT
--- NOTE | 2020-10-04 13:11 | Progress Note ---
<TABITHACHANTELLLaci - Last Filed: 10/04/20 14:25> Assessment and Plan Assessment and plan: This is a 45-year-old female with OHS and GERD who presented s/p cardiac arrest S/p cardiac arrest Global anoxic brain injury Small acute lacunar infarct in the right lesia Acute hypoxic respiratory failure NSTEMI Sepsis Leukocytosis Lactic acidosis Pneumonia Seizure disorder Obesity GERD -[facility], neurology, cardiology, PT consulted, patient recommendations -09/25 CTA chest shows no CT evidence of pulmonary embolism, consolidative changes within both dependent lungs may be due to aspiration -09/25 CT head shows no evidence of acute abnormality, no evidence of acute ischemic injury, hemorrhage, mass affect -09/25 echocardiogram shows left ventricular mildly dilated, left ventricle systolic function severely decreased, left ventricular ejection fraction is 70 decreased, severe global hypokinesis of the left ventricle, LVEF 20 to 25% -09/26 CXR shows slight interval worsening of bilateral parenchymal disease also be secondary to pneumonia possibly aspiration pneumonia -09/27 CXR shows much improved appearance of the chest with improving bilateral pulmonary opacities -09/27 EEG shows significant abnormal record with low voltage 2-400 noted throughout this recording, admixed with low voltage fast beta activity noted frontally, findings suggestive of possible cortical dysfunction and/or encephalopathy and/or post cardiac arrest, possibility of post ictal stage cannot be totally excluded -10/02 MRI showed diffuse cerebral restricted diffusion consistent with global anoxic brain injury, no associated hemorrhage or herniation and additional small acute lacunar infarct in the right lesia -10/01 BLE Doppler ultrasound negative for DVT -TF, ssi, accucheck q6 -s/p Heparin drip -Aspirin, BB, ANNIE -Keppra -Seizure/aspiration precautions -Ativan as needed -As needed labetalol for SBP>160 -Trend CBC, BMP DVT/GI prophylaxis: Pepcid, heparin subq, SCDs to bilateral directions while in bed Disposition: ICU, awaiting family decision about goals of care The high probability of a clinically significant, sudden or life threatening d eterioration of the [cardiac, pulmonary, renal, neuro] system(s) required my full and direct attention, intervention and personal management. The aggregate critical care time was [35] minutes. This time is in addition to time spent performing reported procedures but includes the following: [x] Data Review and interpretation [x] Patient assessment and monitoring of vital signs [x] Documentation [x] Medication orders and management History Interval history: 45-year-old female with obesity hypoventilation syndrome and GERD who presented to the emergency department on 09/30 s/p cardiac arrest via EMS. Per EMS staff they were notified for shortness of breath and upon arrival patient was found to be in distress and subsequently went into cardiac arrest and she was treated in accordance to ACLS protocol and intubated in the field and transported to [facility]. Evaluation in the emergency department upon arrival to the emergency department patient was found to have persistent hypoxic respiratory failure and was maintained on ventilator support. Work-up revealed sepsis, pneumonia, seizure disorder, metabolic acidosis as well as NSTEMI. Cardiology, neurology, [facility] were consulted. 09/26/2020: Patient remains unresponsive, intubated on ventilatory support. 09/27/2020; patient remains unresponsive, intubated on ventilatory support Follow neurology evaluation and recommendations Very poor prognosis, I spoke with patient's aunt Ms. Debora Minor 09/26/2020 About patient's condition , tests and reports and very poor prognosis. She verbalized understanding. I discussed the CODE STATUS Full code at this point 09/28/2020 S/p cardiac arrest outside the facility Intubated and unresponsive We will discuss CODE STATUS again 09/29/2020 S/p cardiac arrest Intubated and unresponsive Will request ethics consult and family meeting again regarding the prognosis and outcome 09/30/20 Discussed with family They will decide about DNR--amenable 10/01: Patient has persistent leukocytosis and hyperchloremia. Patient now has hypernatremia and renal function has improved to CR/BUN 1.1/15 from 1.18. Patient has hypophosphatemia which was repleted yesterday and we will obtain a.m. labs. Patient has MRI brain pending. Family updated by neurology over the phone and [employer]LECT[employer] at bedside. Patient niece was at bedside today and she will defer goals of care decision after MRI results. EEG findings were explained. According to her the patient was in found to be unresponsive by family and was given bystander CPR before arrival of EMS. 10/02: Patient received MRI brain today which showed diffuse cerebral restricted diffusion consistent with global anoxic brain injury, no associated hemorrhage or herniation and additional small acute lacunar infarct in the right paracentral lesia. Patient was hypotensive today and received a bolus of fluids with recovery. At the time examination patient on a CPAP trial of 09/26 and on 25% FiO2. Today we removed the patient's Grace catheter, discontinued bowel regimen and ask RN to follow-up on bilateral lower extremity Doppler ultrasounds. Patient noted to be hypernatremic and free water flushes were increased. 10/03: Cardiology will follow the patient peripherally given poor prognosis, Dr. Alvarado and has spoken to the family regarding prognosis today. Given hypotension patient will receive lower doses of blood pressure medicine and per licensed clinical social worker request a referral to [facility]. Patient will be started on maintenance IV fluid. Patient slight hyperchloremia and hypernatremia persists. Patient received treatment phosphorus and we will recheck level in the a.m. Her leukocytosis improved. H/H is slowly drifting down. She remains on heparin drip. 10/04: Patient bilateral Doppler ultrasound are negative and heparin drip has been stopped. [facility] referral made by CM which was denied. Family is aware. No acute events reported overnight. CPAP trial at the time my examination. Hospitalist Physical - Constitutional Vitals: Temp Pulse Resp BP Pulse Ox 97.2 F L 60 24 120/46 99 10/04/20 11:00 10/04/20 12:00 10/04/20 12:00 10/04/20 12:10/04/20 12:00 General appearance: Present: no acute distress, well-nourished, other (not responsive ) - EENT Eyes: Absent: PERRL, EOM intact ENT: clear oral mucosa - Neck Neck: Present: normal ROM - Respiratory Respiratory effort: normal Respiratory: bilateral: diminished - Cardiovascular Rhythm: regular Heart Sounds: Present: S1 & S2. Absent: systolic murmur, diastolic murmur - Extremities Extremities: no ischemia, pulses intact, pulses symmetrical, normal temperature, normal color Peripheral Pulses: within normal limits - Abdominal General gastrointestinal: soft, non-tender, non-distended, normal bowel sounds - Integumentary Integumentary: Present: clear, dry - Psychiatric Psychiatric: other (not interactive) - Neurologic Neurologic: no CNII-XII intact, no moves all extremities, other (no cough/gag, no pupilary response) - Allied Health Allied health notes reviewed: nursing, RT, social work HEART Score - HEART Score Troponin: Troponin T < 0.010 ng/mL (0.00-0.029) 10/02/20 06:48 Results - Labs CBC & Chem 7: 10/03/20 07:24 10/03/20 07:24 Labs: Laboratory Last Values WBC 12.9 K/mm3 (4.5-11.0) H 10/03/20 07:24 RBC 3.73 M/mm3 (3.65-5.03) 10/03/20 07:24 Hgb 8.9 gm/dl (10.1-14.3) L 10/03/20 07:24 Hct 29.6 % (30.3-42.9) L 10/03/20 07:24 MCV 79 fl (79-97) 10/03/20 07:24 MCH 24 pg (28-32) L 10/03/20 07:24 MCHC 30 % (30-34) 10/03/20 07:24 RDW 21.9 % (13.2-15.2) H 10/03/20 07:24 Plt Count 366 K/mm3 (140-440) 10/03/20 07:24 Lymph % (Auto) 20.1 % (13.4-35.0) 09/30/20 15:05 [place] % (Auto) 13.5 % (0.0-7.3) H 09/30/20 15:05 Eos % (Auto) 0.4 % (0.0-4.3) 09/30/20 15:05 Baso % (Auto) 1.0 % (0.0-1.8) 09/30/20 15:05 Lymph # (Auto) 2.5 K/mm3 (1.2-5.4) 09/30/20 15:05 [place] # (Auto) 1.7 K/mm3 (0.0-0.8) H 09/30/20 15:05 Eos # (Auto) 0.0 K/mm3 (0.0-0.4) 09/30/20 15:05 Baso # (Auto) 0.1 K/mm3 (0.0-0.1) 09/30/20 15:05 Seg Neutrophils % 65.0 % (40.0-70.0) 09/30/20 15:05 Seg Neutrophils # 8.1 K/mm3 (1.8-7.7) H 09/30/20 15:05 PT 13.7 Sec. (12.2-14.9) 09/25/20 18:15 INR 1.00 (0.87-1.13) 09/25/20 18:15 APTT 21.1 Sec. (24.2-36.6) L 09/25/20 18:15 Heparin Anti-Xa Level 0.25 U.I./ml (0.3-0.7) L 10/04/20 04:07 ABG pH 7.424 (7.320-7.450) 10/01/20 04:12 POC ABG pCO2 41.6 mmHg (32.0-48.0) 10/01/20 04:12 POC ABG pO2 73.0 mmHg (83-108) L 10/01/20 04:12 POC ABG HCO3 26.6 10/01/20 04:12 ABG O2 Saturation 94.3 (0-100) 10/01/20 04:12 POC ABG Base Excess 2.0 10/01/20 04:12 ABG Hemoglobin 10.0 (12.0-17.5) L 10/01/20 04:12 ABG Oxyhemoglobin 93.7 (94-98) L 10/01/20 04:12 ABG Methemoglobin 0.3 (0.0-1.5) 10/01/20 04:12 ABG Sodium 146.4 mmol/L (136.0-145.0) H 10/01/20 04:12 ABG Potassium 3.8 mmol/L (3.40-4.50) 10/01/20 04:12 ABG Chloride 110.0 mmol/L (98-107) H 10/01/20 04:12 ABG Glucose 124 mg/dL (65-95) H 10/01/20 04:12 Carboxyhemoglobin 0.3 (0.5-1.5) L 10/01/20 04:12 FiO2 % 25.0 10/01/20 04:12 Sodium 147 mmol/L (137-145) H 10/03/20 07:24 Potassium 4.2 mmol/L (3.6-5.0) 10/03/20 07:24 Chloride 110.4 mmol/L (98-107) H 10/03/20 07:24 Carbon Dioxide 29 mmol/L (22-30) 10/03/20 07:24 Anion Gap 12 mmol/L 10/03/20 07:24 BUN 13 mg/dL (7-17) 10/03/20 07:24 Creatinine 0.8 mg/dL (0.6-1.2) 10/03/20 07:24 Estimated GFR > 60 ml/min 10/03/20 07:24 BUN/Creatinine Ratio 16 % 10/03/20 07:24 Glucose 128 mg/dL (65-100) H 10/03/20 07:24 POC Glucose 129 mg/dL (70-105) H 10/04/20 11:38 Lactic Acid 1.00 mmol/L (0.7-2.0) 09/27/20 04:41 Calcium 9.6 mg/dL (8.4-10.2) 10/03/20 07:24 Phosphorus 2.70 mg/dL (2.5-4.5) 10/04/20 04:07 Magnesium 2.20 mg/dL (1.7-2.3) 10/02/20 06:48 Total Bilirubin 0.20 mg/dL (0.1-1.2) 09/28/20 05:02 AST 129 units/L (5-40) H 09/28/20 05:02 ALT 60 units/L (7-56) H 09/28/20 05:02 Alkaline Phosphatase 84 units/L (35-129) 09/28/20 05:02 Troponin T < 0.010 ng/mL (0.00-0.029) 10/02/20 06:48 C-Reactive Protein 4.30 mg/dL (0.00-1.30) H 09/26/20 15:45 Total Protein 6.9 g/dL (6.3-8.2) 09/28/20 05:02 Albumin 3.7 g/dL (3.9-5) L 09/28/20 05:02 Albumin/Globulin Ratio 1.2 % 09/28/20 05:02 Triglycerides 40 mg/dL (2-149) 09/25/20 23:13 Cholesterol 132 mg/dL (50-199) 09/25/20 23:13 LDL Cholesterol Direct 66 mg/dL (50-130) 09/25/20 23:13 HDL Cholesterol 60 mg/dL (40-59) H 09/25/20 23:13 Cholesterol/HDL Ratio 2.20 % 09/25/20 23:13 Procalcitonin 0.31 ng/mL (<0.15) 09/26/20 15:45 Arterial Blood Glucose 124 mg/dL (65-95) H 10/01/20 04:12 Arterial Blood Ionized Calcium 4.8 mg/dL (4.6-5.3) 10/01/20 04:12 Urine Color Yellow (Yellow) 09/25/20 17:19 Urine Turbidity Cloudy (Clear) 09/25/20 17:19 Urine pH 7.0 (5.0-7.0) 09/25/20 17:19 Ur Specific [place] 1.012 (1.003-1.030) 09/25/20 17:19 Urine Protein >500 mg/dL (Negative) 09/25/20 17:19 Urine Glucose (UA) 50 mg/dL (Negative) 09/25/20 17:19 Urine Ketones Neg mg/dL (Negative) 09/25/20 17:19 Urine Blood Sm (Negative) 09/25/20 17:19 Urine Nitrite Neg (Negative) 09/25/20 17:19 Urine Bilirubin Neg (Negative) 09/25/20 17:19 Urine Urobilinogen < 2.0 mg/dL (<2.0) 09/25/20 17:19 Ur Leukocyte Esterase Neg (Negative) 09/25/20 17:19 Urine WBC (Auto) 14.0 /HPF (0.0-6.0) H 09/25/20 17:19 Urine RBC (Auto) 101.0 /HPF (0.0-6.0) 09/25/20 17:19 U Epithel Cells (Auto) 1.0 /HPF (0-13.0) 09/25/20 17:19 Urine Bacteria (Auto) 1+ /HPF (Negative) 09/25/20 17:19 Urine HCG, Qual Negative (Negative) 09/25/20 17:19 Urine Opiates Screen Presumptive negative 09/25/20 17:19 Urine Methadone Screen Presumptive negative 09/25/20 17:19 Ur Barbiturates Screen Presumptive negative 09/25/20 17:19 Ur Phencyclidine Scrn Presumptive negative 09/25/20 17:19 Ur Amphetamines Screen Presumptive negative 09/25/20 17:19 U Benzodiazepines Scrn Presumptive negative 09/25/20 17:19 Urine Cocaine Screen Presumptive negative 09/25/20 17:19 U Marijuana (THC) Screen Presumptive negative 09/25/20 17:19 Drugs of Abuse Note Disclamer 09/25/20 17:19 Coronavirus (PCR) Negative (Negative) 09/26/20 Unknown Blood Type B POSITIVE 09/25/20 19:00 Antibody Screen Negative 09/25/20 19:00 Grace/IV: Voiding Method External Female Catheter Active Medications - Current Medications Current Medications: Generic Name Dose Route Start Last Admin Trade Name Freq PRN Reason Stop Dose Admin Acetaminophen 650 mg 09/25/20 18:45 Acetaminophen 650 Mg Rect Supp WI Q6H PRN Pain MILD(1-3)/Fever >100.5/RUIZ Acetaminophen 650 mg 09/25/20 18:49 10/04/20 04:17 Acetaminophen 325 Mg Tab PO 650 mg Q6H PRN Administration Pain, Mild (1-3) Albuterol 2.5 mg 09/25/20 18:45 Albuterol 2.5 Mg/3 Ml Nebu IH Q3HRT PRN Shortness Of Breath Lipase/Protease/Amylase 1 each 09/27/20 13:01 Lipase 10,500/Protease 25,000/Amylase 43,750 (Units) Dr Davis FEEDTUBE PRN PRN For Clogged Feeding Tube Aspirin 81 mg 10/01/20 10:00 10/04/20 09:06 Aspirin 81 Mg Tab Chew PO 81 mg QDAY RAMESH Administration Carvedilol 12.5 mg 10/02/20 22:00 10/04/20 09:05 Carvedilol 12.5 Mg Tab PO 12.5 mg BID RAMESH Administration Famotidine 20 mg 09/30/20 10:00 10/04/20 09:05 Famotidine 20 Mg Tab PO 20 mg BID RAMESH Administration Heparin Sodium (Porcine) 5,000 unit 10/04/20 14:00 Heparin 5,000 Unit/1 Ml Vial SUB-Q Q8HR RAMESH Hydromorphone HCl 0.25 mg 09/25/20 18:49 09/30/20 14:05 Hydromorphone 1 Mg/1 Ml Inj IV 0.25 mg Q4H PRN Administration Pain, Moderate (4-6) Hydrophilic Ointment 1 applic 09/25/20 16:52 Lip Therapy Vaseline TP Q2HR PRN Dry Lips Propofol 1,000 mg in 100 mls @ 3.201 mls/hr 09/26/20 14:00 09/28/20 19:01 Diprivan 10 Mg/Ml IV 0 mcg/kg/min TITR RAMESH 0 mls/hr Titration Protocol 5 MCG/KG/MIN Labetalol HCl 10 mg 09/27/20 12:51 09/30/20 14:02 Labetalol 20 Mg/4 Ml Inj IV 10 mg Q4H PRN Administration Blood Pressure Levetiracetam 750 mg 09/30/20 22:00 10/04/20 09:06 Levetiracetam 500 Mg/5 Ml Oral Liqd PO 750 mg BID RAMESH Administration Lorazepam 2 mg 09/26/20 13:45 Lorazepam 2 Mg/Ml Vial IV Q4H PRN Seizures Losartan Potassium 50 mg 10/03/20 10:00 10/04/20 09:05 Losartan 50 Mg Tab PO 50 mg QDAY RAMESH Administration Metoclopramide HCl 10 mg 09/30/20 16:33 09/30/20 20:20 Metoclopramide 10 Mg/2 Ml Inj IV 10 mg Q6H PRN Administration Nausea And Vomiting Modafinil 100 mg 10/05/20 10:00 Modafinil 100 Mg Tab PO QAM RAMESH Multi-Ingred Cream/Lotion/Oil/Oint 1 applic 09/25/20 16:52 09/28/20 22:02 Mineral Oil/Petrolatum, White Ophth Oint 3.5 Gm OU 1 applic Q4HR PRN Administration Dry Eye(s) Ondansetron HCl 4 mg 09/30/20 01:25 09/30/20 10:01 Ondansetron 4 Mg/2 Ml Inj IV 4 mg Q8H PRN Administration Nausea And Vomiting Scopolamine 1 each 10/01/20 16:00 10/02/20 09:43 Scopolamine Transdermal Patch 72 Hr TD 1 each Q72HR RAMESH Administration Simple Syrup 15 ml 09/27/20 13:01 Simple Syrup 15 Ml FEEDTUBE PRN PRN Hypoglycemia Simple Syrup 30 ml 09/27/20 13:01 09/29/20 06:13 Simple Syrup 15 Ml FEEDTUBE 30 ml PRN PRN Administration Hypoglycemia Sodium Bicarbonate 325 mg 09/27/20 13:01 Sodium Bicarbonate 325 Mg Tab FEEDTUBE PRN PRN For Clogged Feeding Tube Sodium Chloride 10 ml 09/25/20 22:00 10/04/20 09:06 Sodium Chloride 0.9% 10 Ml Flush Syringe IV 10 ml BID RAMESH Administration Sodium Chloride 10 ml 09/25/20 18:45 Sodium Chloride 0.9% 10 Ml Flush Syringe IV PRN PRN LINE FLUSH Nutrition/Malnutrition Assess - Dietary Evaluation Nutrition/Malnutrition Findings: Nutrition Notes Start: 09/27/20 1 2:48 Freq: Status: Active Protocol: Document 10/03/20 13:47 ARMANDO (Rec: 10/03/20 13:48 ARMANDO [id number]) Nutrition Notes Initial or Follow up Brief Note Subjective/Other Information Change F/U date to 10/07. Nutrition Intervention Follow-Up By: 10/07/20 Additional Comments F/U: stable TF, vent status <MAX FERMIN - Last Filed: 10/04/20 17:39> Assessment and Plan Assessment and plan: Agree with assessment and plan as outlined by nurse practitioner. I personally examined the patient, family at the bedside, states that they are interested in having a trach placed and taking the patient home. We will work with case management and critical care pertaining to these plans if they come to fruition. Hospitalist Physical - Constitutional Vitals: Temp Pulse Resp BP Pulse Ox 97.2 F L 79 26 H 137/52 100 10/04/20 11:00 10/04/20 17:01 10/04/20 17:01 10/04/20 17:01 10/04/20 17:01 HEART Score - HEART Score Troponin: Troponin T < 0.010 ng/mL (0.00-0.029) 10/02/20 06:48 Results - Labs CBC & Chem 7: 10/03/20 07:24 10/03/20 07:24 Labs: Laboratory Last Values WBC 12.9 K/mm3 (4.5-11.0) H 10/03/20 07:24 RBC 3.73 M/mm3 (3.65-5.03) 10/03/20 07:24 Hgb 8.9 gm/dl (10.1-14.3) L 10/03/20 07:24 Hct 29.6 % (30.3-42.9) L 10/03/20 07:24 MCV 79 fl (79-97) 10/03/20 07:24 MCH 24 pg (28-32) L 10/03/20 07:24 MCHC 30 % (30-34) 10/03/20 07:24 RDW 21.9 % (13.2-15.2) H 10/03/20 07:24 Plt Count 366 K/mm3 (140-440) 10/03/20 07:24 Lymph % (Auto) 20.1 % (13.4-35.0) 09/30/20 15:05 [place] % (Auto) 13.5 % (0.0-7.3) H 09/30/20 15:05 Eos % (Auto) 0.4 % (0.0-4.3) 09/30/20 15:05 Baso % (Auto) 1.0 % (0.0-1.8) 09/30/20 15:05 Lymph # (Auto) 2.5 K/mm3 (1.2-5.4) 09/30/20 15:05 [place] # (Auto) 1.7 K/mm3 (0.0-0.8) H 09/30/20 15:05 Eos # (Auto) 0.0 K/mm3 (0.0-0.4) 09/30/20 15:05 Baso # (Auto) 0.1 K/mm3 (0.0-0.1) 09/30/20 15:05 Seg Neutrophils % 65.0 % (40.0-70.0) 09/30/20 15:05 Seg Neutrophils # 8.1 K/mm3 (1.8-7.7) H 09/30/20 15:05 PT 13.7 Sec. (12.2-14.9) 09/25/20 18:15 INR 1.00 (0.87-1.13) 09/25/20 18:15 APTT 21.1 Sec. (24.2-36.6) L 09/25/20 18:15 Heparin Anti-Xa Level 0.25 U.I./ml (0.3-0.7) L 10/04/20 04:07 ABG pH 7.424 (7.320-7.450) 10/01/20 04:12 POC ABG pCO2 41.6 mmHg (32.0-48.0) 10/01/20 04:12 POC ABG pO2 73.0 mmHg (83-108) L 10/01/20 04:12 POC ABG HCO3 26.6 10/01/20 04:12 ABG O2 Saturation 94.3 (0-100) 10/01/20 04:12 POC ABG Base Excess 2.0 10/01/20 04:12 ABG Hemoglobin 10.0 (12.0-17.5) L 10/01/20 04:12 ABG Oxyhemoglobin 93.7 (94-98) L 10/01/20 04:12 ABG Methemoglobin 0.3 (0.0-1.5) 10/01/20 04:12 ABG Sodium 146.4 mmol/L (136.0-145.0) H 10/01/20 04:12 ABG Potassium 3.8 mmol/L (3.40-4.50) 10/01/20 04:12 ABG Chloride 110.0 mmol/L (98-107) H 10/01/20 04:12 ABG Glucose 124 mg/dL (65-95) H 10/01/20 04:12 Carboxyhemoglobin 0.3 (0.5-1.5) L 10/01/20 04:12 FiO2 % 25.0 10/01/20 04:12 Sodium 147 mmol/L (137-145) H 10/03/20 07:24 Potassium 4.2 mmol/L (3.6-5.0) 10/03/20 07:24 Chloride 110.4 mmol/L (98-107) H 10/03/20 07:24 Carbon Dioxide 29 mmol/L (22-30) 10/03/20 07:24 Anion Gap 12 mmol/L 10/03/20 07:24 BUN 13 mg/dL (7-17) 10/03/20 07:24 Creatinine 0.8 mg/dL (0.6-1.2) 10/03/20 07:24 Estimated GFR > 60 ml/min 10/03/20 07:24 BUN/Creatinine Ratio 16 % 10/03/20 07:24 Glucose 128 mg/dL (65-100) H 10/03/20 07:24 POC Glucose 129 mg/dL (70-105) H 10/04/20 11:38 Lactic Acid 1.00 mmol/L (0.7-2.0) 09/27/20 04:41 Calcium 9.6 mg/dL (8.4-10.2) 10/03/20 07:24 Phosphorus 2.70 mg/dL (2.5-4.5) 10/04/20 04:07 Magnesium 2.20 mg/dL (1.7-2.3) 10/02/20 06:48 Total Bilirubin 0.20 mg/dL (0.1-1.2) 09/28/20 05:02 AST 129 units/L (5-40) H 09/28/20 05:02 ALT 60 units/L (7-56) H 09/28/20 05:02 Alkaline Phosphatase 84 units/L (35-129) 09/28/20 05:02 Troponin T < 0.010 ng/mL (0.00-0.029) 10/02/20 06:48 C-Reactive Protein 4.30 mg/dL (0.00-1.30) H 09/26/20 15:45 Total Protein 6.9 g/dL (6.3-8.2) 09/28/20 05:02 Albumin 3.7 g/dL (3.9-5) L 09/28/20 05:02 Albumin/Globulin Ratio 1.2 % 09/28/20 05:02 Triglycerides 40 mg/dL (2-149) 09/25/20 23:13 Cholesterol 132 mg/dL (50-199) 09/25/20 23:13 LDL Cholesterol Direct 66 mg/dL (50-130) 09/25/20 23:13 HDL Cholesterol 60 mg/dL (40-59) H 09/25/20 23:13 Cholesterol/HDL Ratio 2.20 % 09/25/20 23:13 Procalcitonin 0.31 ng/mL (<0.15) 09/26/20 15:45 Arterial Blood Glucose 124 mg/dL (65-95) H 10/01/20 04:12 Arterial Blood Ionized Calcium 4.8 mg/dL (4.6-5.3) 10/01/20 04:12 Urine Color Yellow (Yellow) 09/25/20 17:19 Urine Turbidity Cloudy (Clear) 09/25/20 17:19 Urine pH 7.0 (5.0-7.0) 09/25/20 17:19 Ur Specific [place] 1.012 (1.003-1.030) 09/25/20 17:19 Urine Protein >500 mg/dL (Negative) 09/25/20 17:19 Urine Glucose (UA) 50 mg/dL (Negative) 09/25/20 17:19 Urine Ketones Neg mg/dL (Negative) 09/25/20 17:19 Urine Blood Sm (Negative) 09/25/20 17:19 Urine Nitrite Neg (Negative) 09/25/20 17:19 Urine Bilirubin Neg (Negative) 09/25/20 17:19 Urine Urobilinogen < 2.0 mg/dL (<2.0) 09/25/20 17:19 Ur Leukocyte Esterase Neg (Negative) 09/25/20 17:19 Urine WBC (Auto) 14.0 /HPF (0.0-6.0) H 09/25/20 17:19 Urine RBC (Auto) 101.0 /HPF (0.0-6.0) 09/25/20 17:19 U Epithel Cells (Auto) 1.0 /HPF (0-13.0) 09/25/20 17:19 Urine Bacteria (Auto) 1+ /HPF (Negative) 09/25/20 17:19 Urine HCG, Qual Negative (Negative) 09/25/20 17:19 Urine Opiates Screen Presumptive negative 09/25/20 17:19 Urine Methadone Screen Presumptive negative 09/25/20 17:19 Ur Barbiturates Screen Presumptive negative 09/25/20 17:19 Ur Phencyclidine Scrn Presumptive negative 09/25/20 17:19 Ur Amphetamines Screen Presumptive negative 09/25/20 17:19 U Benzodiazepines Scrn Presumptive negative 09/25/20 17:19 Urine Cocaine Screen Presumptive negative 09/25/20 17:19 U Marijuana (THC) Screen Presumptive negative 09/25/20 17:19 Drugs of Abuse Note Disclamer 09/25/20 17:19 Coronavirus (PCR) Negative (Negative) 09/26/20 Unknown Blood Type B POSITIVE 09/25/20 19:00 Antibody Screen Negative 09/25/20 19:00 Grace/IV: Voiding Method External Female Catheter Active Medications - Current Medications Current Medications: Generic Name Dose Route Start Last Admin Trade Name Freq PRN Reason Stop Dose Admin Acetaminophen 650 mg 09/25/20 18:45 Acetaminophen 650 Mg Rect Supp WI Q6H PRN Pain MILD(1-3)/Fever >100.5/RUIZ Acetaminophen 650 mg 09/25/20 18:49 10/04/20 04:17 Acetaminophen 325 Mg Tab PO 650 mg Q6H PRN Administration Pain, Mild (1-3) Albuterol 2.5 mg 09/25/20 18:45 Albuterol 2.5 Mg/3 Ml Nebu IH Q3HRT PRN Shortness Of Breath Lipase/Protease/Amylase 1 each 09/27/20 13:01 Lipase 10,500/Protease 25,000/Amylase 43,750 (Units) Dr Davis FEEDTUBE PRN PRN For Clogged Feeding Tube Aspirin 81 mg 10/01/20 10:00 10/04/20 09:06 Aspirin 81 Mg Tab Chew PO 81 mg QDAY RAMESH Administration Carvedilol 12.5 mg 10/02/20 22:00 10/04/20 09:05 Carvedilol 12.5 Mg Tab PO 12.5 mg BID RAMESH Administration Famotidine 20 mg 09/30/20 10:00 10/04/20 09:05 Famotidine 20 Mg Tab PO 20 mg BID RAMESH Administration Heparin Sodium (Porcine) 5,000 unit 10/04/20 14:00 10/04/20 14:08 Heparin 5,000 Unit/1 Ml Vial SUB-Q 5,000 unit Q8HR RAMESH Administration Hydromorphone HCl 0.25 mg 09/25/20 18:49 09/30/20 14:05 Hydromorphone 1 Mg/1 Ml Inj IV 0.25 mg Q4H PRN Administration Pain, Moderate (4-6) Hydrophilic Ointment 1 applic 09/25/20 16:52 Lip Therapy Vaseline TP Q2HR PRN Dry Lips Propofol 1,000 mg in 100 mls @ 3.201 mls/hr 09/26/20 14:00 09/28/20 19:01 Diprivan 10 Mg/Ml IV 0 mcg/kg/min TITR RAMESH 0 mls/hr Titration Protocol 5 MCG/KG/MIN Labetalol HCl 10 mg 09/27/20 12:51 09/30/20 14:02 Labetalol 20 Mg/4 Ml Inj IV 10 mg Q4H PRN Administration Blood Pressure Levetiracetam 750 mg 09/30/20 22:00 10/04/20 09:06 Levetiracetam 500 Mg/5 Ml Oral Liqd PO 750 mg BID RAMESH Administration Lorazepam 2 mg 09/26/20 13:45 Lorazepam 2 Mg/Ml Vial IV Q4H PRN Seizures Losartan Potassium 50 mg 10/03/20 10:00 10/04/20 09:05 Losartan 50 Mg Tab PO 50 mg QDAY RAMESH Administration Metoclopramide HCl 10 mg 09/30/20 16:33 09/30/20 20:20 Metoclopramide 10 Mg/2 Ml Inj IV 10 mg Q6H PRN Administration Nausea And Vomiting Modafinil 100 mg 10/05/20 10:00 Modafinil 100 Mg Tab PO QAM RAMESH Multi-Ingred Cream/Lotion/Oil/Oint 1 applic 09/25/20 16:52 09/28/20 22:02 Mineral Oil/Petrolatum, White Ophth Oint 3.5 Gm OU 1 applic Q4HR PRN Administration Dry Eye(s) Ondansetron HCl 4 mg 09/30/20 01:25 09/30/20 10:01 Ondansetron 4 Mg/2 Ml Inj IV 4 mg Q8H PRN Administration Nausea And Vomiting Scopolamine 1 each 10/01/20 16:00 10/02/20 09:43 Scopolamine Transdermal Patch 72 Hr TD 1 each Q72HR RAMESH Administration Simple Syrup 15 ml 09/27/20 13:01 Simple Syrup 15 Ml FEEDTUBE PRN PRN Hypoglycemia Simple Syrup 30 ml 09/27/20 13:01 09/29/20 06:13 Simple Syrup 15 Ml FEEDTUBE 30 ml PRN PRN Administration Hypoglycemia Sodium Bicarbonate 325 mg 09/27/20 13:01 Sodium Bicarbonate 325 Mg Tab FEEDTUBE PRN PRN For Clogged Feeding Tube Sodium Chloride 10 ml 09/25/20 22:00 10/04/20 09:06 Sodium Chloride 0.9% 10 Ml Flush Syringe IV 10 ml BID RAMESH Administration Sodium Chloride 10 ml 09/25/20 18:45 Sodium Chloride 0.9% 10 Ml Flush Syringe IV PRN PRN LINE FLUSH Nutrition/Malnutrition Assess - Dietary Evaluation Nutrition/Malnutrition Findings: Nutrition Notes Start: 09/27/20 12:48 Freq: Status: Active Protocol: Document 10/03/20 13:47 ARMANDO (Rec: 10/03/20 13:48 ARMANDO [id number]) Nutrition Notes Initial or Follow up Brief Note Subjective/Other Information Change F/U date to 10/07. Nutrition Intervention Follow-Up By: 10/07/20 Additional Comments F/U: stable TF, vent status
[2020-10-04] MEDS: HEPARIN 5,000 UNIT/1 ML VIAL SUB-Q SCH ×2 (14:08→22:02)
--- NOTE | 2020-10-04 15:13 | Event Note ---
Date: 10/04/20 pt. family presented today pt. bed side requested detail information on the pt. she claimed that no body updating her about the case I explained to her I talked to her cosine on the as well as yesterday she accused me of lying !!! today the pt. condition is explained to her in details with presence of X3 nurses in the room all her questions answered pt. is not examined today I explained to family all the findings on MRI,EEG,Labs and pt. medical conditions Explained to them that pt. is not brain but is with significant brain injury she is off sedation for a week with no clear changes in her clinical presentation pt. today is on C-pap
--- NOTE | 2020-10-04 18:35 | Electrocardiograph Report ---
[facility] Test Date: 2020-09-30 Test Time: 16:41:45 Pat Name: GALO CORDERO Department: Room: A262 1 Gender: F Front Desk Representative: VERNON : 1975 Requested By: ELGIN MORALES Order Number: [id number] Reading MD: Kieran Alvarez Measurements Intervals [place] Rate: 103 P: 62 VA: 145 QRS: 50 QRSD: 86 T: 30 QT: 339 QTc: 444 Interpretive Statements Sinus tachycardia Nonspecific T abnormalities, anterior leads Compared to ECG 09/25/2020 17:15:43 T-wave abnormality still present Electronically Signed On 10-04-2020 18:35:35 EDT by Kieran Alvarez
[2020-10-05] MEDS: ACETAMINOPHEN 325 MG TAB PO PRN (00:28)
[2020-10-05 04:55] LABS: Hematocrit 29.5 % (30.3-42.9); Hemoglobin 9.1 gm/dl (10.1-14.3); Mean Corpuscular HGB Conc 31 % (30-34); Mean Corpuscular Volume 80 fl (79-97); Platelet Count 434 K/mm3 (140-440)
[2020-10-05 04:56] LABS: Red Cell Distribution Width 22.2 % (13.2-15.2)
[2020-10-05 05:18] LABS: BUN/Creatinine Ratio 19; Blood Urea Nitrogen 15 mg/dL (7-17); Calcium 9.4 mg/dL (8.4-10.2); Hemolysis Index 19
[2020-10-05] MEDS: HEPARIN 5,000 UNIT/1 ML VIAL SUB-Q SCH ×3 (05:40→21:10)
--- NOTE | 2020-10-05 08:47 | Progress Note ---
Assessment and Plan Cardiac arrest with return of spontaneous circulation. Acute respiratory failure, on mechanical ventilatory support. Acute toxic metabolic encephalopathy. Possible anoxic encephalopathy. Obesity. History of obesity hypoventilation syndrome. Leukocytosis. Likely aspiration pneumonia, bilateral. Anemia that is microcytic. Lactic acidosis. Elevated serum transaminases. Non-ST elevation myocardial infarction Hypernatremia Unfortunately mental status changes persist. Will need discussions with the family re early trach and PEG Continue with cardioprotective measures Will need to discuss trach and PEG with family - Continue to monitor hemodynamics closely while she is on heart failure measures - VTE prophylaxis dosing- dopplers are negative, no evidence of pulmonary embolism - continue free water flushes. Monitor sodium levels - continue to titrate supplemental oxygen to keep SpO2 89-92% - VAP bundle addressed, aspiration precautions HOB >40 - continue lung protective strategies - continue bronchodilators with pulmonary hygiene per RT - wean per pulmonary driven protocols otherwise - continue Daily SBT assessment as tolerated - continue accuchecks with glycemic control per SSI (While critically ill target blood glucose of 140-180 mg/dL; avoid hypoglycemia) - sedation prn for target RASS 0 to -1 - avoid nephrotoxins, renally dose all medications - continue to avoid benzodiazepines, reduce the possibility of delirium - Monitor and trend temperature curve and WCC - prn analgesia per CPOT score - Maintenance of sleep-wake cycle, avoid delirium - continue enteral nutritional support at goal rate as tolerated - Stress ulcer prophylaxis - PT/OT/ROM exercises - continue mobility, off loading , frequent turning per facility protocols for pressure ulcer prevention - continue other care per attending / other consultants - discharge planning ongoing concurrently CONDITION: CRITICAL PROGNOSIS: GUARDED CODE STATUS: FULL CODE The high probability of a clinically significant, sudden or life-threatening deterioration of the [respiratory, cardiovascular & neurologic] system(s) required my full and direct attention, intervention and personal management. The aggregate critical care time was [35] minutes without overlap. Time includes spent on; [x] Data Review and interpretation [x] Patient assessment and monitoring of vital signs [x] Documentation [x] Medication orders and management Subjective Date of service: 10/05/20 Principal diagnosis: Cardiac arrest; Ac. respiratory failure; Anoxic encephalopathy; PNA; NSTEMI Interval history: Patient is seen today for: Cardiac arrest with ROSC; Acute respiratory failure; Anoxic encephalopathy; Obesity; OHS; Aspiration pneumonia; NSTEMI Seen and examined at bedside; 24hour events reviewed; nursing and respiratory care staff consulted; no adverse overnight events reported to me; resting in bed; remains on MVS, full support. Intermittent fever which responded to Acetaminophen; mental status changes persist. Objective Vital Signs - 12hr 10/04/20 10/04/20 10/04/20 21:00 21:30 22:00 Temperature Pulse Rate 102 H 102 H 107 H Pulse Rate [ From Monitor] Respiratory 12 19 22 Rate Blood Pressure 131/51 137/60 129/61 O2 Sat by Pulse 100 99 Oximetry 10/04/20 10/04/20 10/04/20 22:01 22:30 23:00 Temperature Pulse Rate 105 H 108 H 88 Pulse Rate [ From Monitor] Respiratory 24 27 H Rate Blood Pressure 129/61 114/53 103/48 O2 Sat by Pulse 98 98 Oximetry 10/04/20 10/04/20 10/05/20 23:29 23:30 00:00 Temperature 100.7 F H Pulse Rate 93 H 91 H 95 H Pulse Rate [ 78 From Monitor] Respiratory 16 22 Rate Blood Pressure 118/46 118/46 115/53 O2 Sat by Pulse 100 99 99 Oximetry 10/05/20 10/05/20 10/05/20 00:30 01:00 01:30 Temperature Pulse Rate 96 H 97 H 99 H Pulse Rate [ From Monitor] Respiratory 18 14 13 Rate Blood Pressure 116/51 105/49 100/44 O2 Sat by Pulse 99 99 99 Oximetry 10/05/20 10/05/20 10/05/20 02:00 02:30 03:00 Temperature Pulse Rate 97 H 93 H 94 H Pulse Rate [ From Monitor] Respiratory 14 15 13 Rate Blood Pressure 117/47 99/44 99/51 O2 Sat by Pulse 99 98 99 Oximetry 10/05/20 10/05/20 10/05/20 03:30 03:53 04:00 Temperature Pulse Rate 94 H 92 H 92 H Pulse Rate [ 78 From Monitor] Respiratory 18 18 Rate Blood Pressure 102/47 106/55 113/55 O2 Sat by Pulse 99 99 98 Oximetry 10/05/20 10/05/20 10/05/20 04:30 05:00 05:31 Temperature Pulse Rate 92 H 87 88 Pulse Rate [ From Monitor] Respiratory 18 13 18 Rate Blood Pressure 111/59 112/52 120/55 O2 Sat by Pulse 99 98 99 Oximetry 10/05/20 10/05/20 06:00 08:00 Temperature Pulse Rate 92 H 92 H Pulse Rate [ From Monitor] Respiratory 23 Rate Blood Pressure 116/63 138/64 O2 Sat by Pulse 98 99 Oximetry Constitutional: no acute distress, other (middle aged obese female with normal respiratory effort at rest on MVS) Eyes: non-icteric ENT: oropharynx moist, other (ETT 23 cm JAH) Neck: supple, no lymphadenopathy, no JVD Effort: normal Ascultation: Bilateral: rhonchi Percussion: Bilateral: not dull Cardiovascular: regular rate and rhythm, other (S1,S2) Gastrointestinal: normoactive bowel sounds, soft, non-tender, non-distended Integumentary: normal Extremities: no cyanosis, no edema, pulses normal, no ischemia or petechiae Neurologic: pupils equal and round, unable to assess Psychiatric: other (unable to assess re: AMS) CBC and BMP: 10/05/20 04:17 10/05/20 04:17 ABG, PT/INR, D-dimer: ABG ABG pH 7.424 (7.320-7.450) 10/01/20 04:12 POC ABG pCO2 41.6 mmHg (32.0-48.0) 10/01/20 04:12 POC ABG pO2 73.0 mmHg (83-108) L 10/01/20 04:12 POC ABG HCO3 26.6 10/01/20 04:12 ABG O2 Saturation 94.3 (0-100) 10/01/20 04:12 PT/INR, D-dimer PT 13.7 Sec. (12.2-14.9) 09/25/20 18:15 INR 1.00 (0.87-1.13) 09/25/20 18:15 Abnormal lab findings: Abnormal Labs 09/25/20 09/25/20 09/25/20 17:19 17:21 18:15 WBC 13.8 H Hgb 9.9 L Hct MCV 76 L MCH 23 L RDW 17.9 H Lymph % (Auto) [place] % (Auto) Lymph # (Auto) [place] # (Auto) Seg Neutrophils % 78.6 H Seg Neutrophils # 10.8 H APTT Heparin Anti-Xa Level ABG pH POC ABG pCO2 26.2 L POC ABG pO2 554.5 H ABG Hemoglobin 9.0 L ABG Oxyhemoglobin 99.0 H ABG Sodium 134.5 L ABG Potassium ABG Chloride ABG Glucose 220 H Carboxyhemoglobin Sodium Potassium Chloride BUN Creatinine Glucose POC Glucose Lactic Acid Calcium Phosphorus AST ALT Troponin T C-Reactive Protein Albumin HDL Cholesterol Arterial Blood Glucose 220 H Arterial Blood Ionized Calcium 4.2 L Urine WBC (Auto) 14.0 H 09/25/20 09/25/20 09/25/20 18:15 18:15 18:15 WBC Hgb Hct MCV MCH RDW Lymph % (Auto) [place] % (Auto) Lymph # (Auto) [place] # (Auto) Seg Neutrophils % Seg Neutrophils # APTT 21.1 L Heparin Anti-Xa Level ABG pH POC ABG pCO2 POC ABG pO2 ABG Hemoglobin ABG Oxyhemoglobin ABG Sodium ABG Potassium ABG Chloride ABG Glucose Carboxyhemoglobin Sodium Potassium Chloride BUN Creatinine Glucose 113 H POC Glucose Lactic Acid 2.60 H* Calcium Phosphorus AST 162 H ALT 131 H Troponin T 0.096 H C-Reactive Protein Albumin HDL Cholesterol Arterial Blood Glucose Arterial Blood Ionized Calcium Urine WBC (Auto) 09/25/20 09/25/20 09/26/20 23:13 23:13 03:15 WBC Hgb Hct MCV MCH RDW Lymph % (Auto) [place] % (Auto) Lymph # (Auto) [place] # (Auto) Seg Neutrophils % Seg Neutrophils # APTT Heparin Anti-Xa Level ABG pH 7.451 H POC ABG pCO2 27.1 L POC ABG pO2 ABG Hemoglobin 10.4 L ABG Oxyhemoglobin ABG Sodium 135.2 L ABG Potassium ABG Chloride 108.0 H ABG Glucose 137 H Carboxyhemoglobin Sodium Potassium Chloride BUN Creatinine Glucose POC Glucose Lactic Acid 2.90 H* Calcium Phosphorus AST ALT Troponin T 0.170 H* D C-Reactive Protein Albumin HDL Cholesterol 60 H Arterial Blood Glucose 137 H Arterial Blood Ionized Calcium 4.2 L Urine WBC (Auto) 09/26/20 09/26/20 09/26/20 05:09 05:09 05:09 WBC 15.8 H Hgb 10.0 L Hct MCV 77 L MCH 24 L RDW 17.8 H Lymph % (Auto) 7.2 L [place] % (Auto) Lymph # (Auto) 1.1 L [place] # (Auto) 1.0 H Seg Neutrophils % 86.1 H Seg Neutrophils # 13.6 H APTT Heparin Anti-Xa Level ABG pH POC ABG pCO2 POC ABG pO2 ABG Hemoglobin ABG Oxyhemoglobin ABG Sodium ABG Potassium ABG Chloride ABG Glucose Carboxyhemoglobin Sodium Potassium Chloride BUN Creatinine Glucose 114 H POC Glucose Lactic Acid 2.40 H* Calcium 8.1 L Phosphorus AST 112 H ALT 103 H Troponin T C-Reactive Protein Albumin 3.8 L HDL Cholesterol Arterial Blood Glucose Arterial Blood Ionized Calcium Urine WBC (Auto) 09/26/20 09/27/20 09/27/20 15:45 03:33 04:41 WBC Hgb 9.0 L Hct 28.6 L MCV MCH RDW Lymph % (Auto) [place] % (Auto) Lymph # (Auto) [place] # (Auto) Seg Neutrophils % Seg Neutrophils # APTT Heparin Anti-Xa Level ABG pH POC ABG pCO2 POC ABG pO2 141.6 H ABG Hemoglobin 9.3 L ABG Oxyhemoglobin ABG Sodium ABG Potassium 3.2 L ABG Chloride 108.0 H ABG Glucose 118 H Carboxyhemoglobin Sodium Potassium Chloride BUN Creatinine Glucose POC Glucose Lactic Acid Calcium Phosphorus 2.20 L AST ALT Troponin T C-Reactive Protein 4.30 H Albumin HDL Cholesterol Arterial Blood Glucose 118 H Arterial Blood Ionized Calcium 4.2 L Urine WBC (Auto) 09/27/20 09/27/20 09/28/20 04:41 22:53 04:00 WBC Hgb Hct MCV MCH RDW Lymph % (Auto) [place] % (Auto) Lymph # (Auto) [place] # (Auto) Seg Neutrophils % Seg Neutrophils # APTT Heparin Anti-Xa Level 0.75 H ABG pH 7.467 H POC ABG pCO2 POC ABG pO2 78.9 L ABG Hemoglobin 9.8 L ABG Oxyhemoglobin ABG Sodium ABG Potassium ABG Chloride ABG Glucose 141 H Carboxyhemoglobin Sodium Potassium Chloride BUN Creatinine Glucose POC Glucose 109 H Lactic Acid Calcium Phosphorus AST ALT Troponin T C-Reactive Protein Albumin HDL Cholesterol Arterial Blood Glucose 141 H Arterial Blood Ionized Calcium Urine WBC (Auto) 09/28/20 09/28/20 09/28/20 05:02 05:02 17:42 WBC 11.9 H Hgb 9.3 L Hct 29.5 L MCV 76 L MCH 24 L RDW 19.4 H Lymph % (Auto) [place] % (Auto) 11.1 H Lymph # (Auto) [place] # (Auto) 1.3 H Seg Neutrophils % 72.5 H Seg Neutrophils # 8.6 H APTT Heparin Anti-Xa Level ABG pH POC ABG pCO2 POC ABG pO2 ABG Hemoglobin ABG Oxyhemoglobin ABG Sodium ABG Potassium ABG Chloride ABG Glucose Carboxyhemoglobin Sodium Potassium 3.4 L Chloride BUN Creatinine Glucose 126 H POC Glucose 69 L Lactic Acid Calcium Phosphorus AST 129 H ALT 60 H Troponin T C-Reactive Protein Albumin 3.7 L HDL Cholesterol Arterial Blood Glucose Arterial Blood Ionized Calcium Urine WBC (Auto) 09/29/20 09/29/20 09/29/20 04:00 05:53 08:39 WBC Hgb 10.0 L Hct MCV MCH RDW Lymph % (Auto) [place] % (Auto) Lymph # (Auto) [place] # (Auto) Seg Neutrophils % Seg Neutrophils # APTT Heparin Anti-Xa Level ABG pH POC ABG pCO2 POC ABG pO2 81.1 L ABG Hemoglobin 11.0 L ABG Oxyhemoglobin ABG Sodium ABG Potassium ABG Chloride 110.0 H ABG Glucose 129 H Carboxyhemoglobin Sodium Potassium Chloride BUN Creatinine Glucose POC Glucose 58 L Lactic Acid Calcium Phosphorus AST ALT Troponin T C-Reactive Protein Albumin HDL Cholesterol Arterial Blood Glucose 129 H Arterial Blood Ionized Calcium Urine WBC (Auto) 09/30/20 09/30/20 09/30/20 00:10 10:45 15:05 WBC 12.5 H Hgb 9.9 L Hct MCV 78 L MCH 24 L RDW 21.0 H Lymph % (Auto) [place] % (Auto) 13.5 H Lymph # (Auto) [place] # (Auto) 1.7 H Seg Neutrophils % Seg Neutrophils # 8.1 H APTT Heparin Anti-Xa Level ABG pH 7.469 H POC ABG pCO2 POC ABG pO2 ABG Hemoglobin 10.4 L ABG Oxyhemoglobin ABG Sodium 146.2 H ABG Potassium ABG Chloride 109.0 H ABG Glucose 155 H Carboxyhemoglobin Sodium Potassium Chloride BUN Creatinine Glucose POC Glucose 131 H Lactic Acid Calcium Phosphorus AST ALT Troponin T C-Reactive Protein Albumin HDL Cholesterol Arterial Blood Glucose 155 H Arterial Blood Ionized Calcium Urine WBC (Auto) 09/30/20 09/30/20 10/01/20 15:05 17:37 00:29 WBC Hgb Hct MCV MCH RDW Lymph % (Auto) [place] % (Auto) Lymph # (Auto) [place] # (Auto) Seg Neutrophils % Seg Neutrophils # APTT Heparin Anti-Xa Level ABG pH POC ABG pCO2 POC ABG pO2 ABG Hemoglobin ABG Oxyhemoglobin ABG Sodium ABG Potassium ABG Chloride ABG Glucose Carboxyhemoglobin Sodium Potassium Chloride 109.1 H BUN 18 H Creatinine 1.4 H Glucose 122 H POC Glucose 127 H 119 H Lactic Acid Calcium Phosphorus 2.00 L AST ALT Troponin T C-Reactive Protein Albumin HDL Cholesterol Arterial Blood Glucose Arterial Blood Ionized Calcium Urine WBC (Auto) 10/01/20 10/01/20 10/01/20 04:12 05:56 05:56 WBC 14.2 H Hgb 9.7 L Hct MCV 78 L MCH 23 L RDW 21.1 H Lymph % (Auto) [place] % (Auto) Lymph # (Auto) [place] # (Auto) Seg Neutrophils % Seg Neutrophils # APTT Heparin Anti-Xa Level ABG pH POC ABG pCO2 POC ABG pO2 73.0 L ABG Hemoglobin 10.0 L ABG Oxyhemoglobin 93.7 L ABG Sodium 146.4 H ABG Potassium ABG Chloride 110.0 H ABG Glucose 124 H Carboxyhemoglobin 0.3 L Sodium 147 H Potassium Chloride 109.6 H BUN Creatinine Glucose 109 H POC Glucose Lactic Acid Calcium Phosphorus AST ALT Troponin T C-Reactive Protein Albumin HDL Cholesterol Arterial Blood Glucose 124 H Arterial Blood Ionized Calcium Urine WBC (Auto) 10/01/20 10/01/20 10/02/20 19:21 23:17 05:27 WBC Hgb Hct MCV MCH RDW Lymph % (Auto) [place] % (Auto) Lymph # (Auto) [place] # (Auto) Seg Neutrophils % Seg Neutrophils # APTT Heparin Anti-Xa Level ABG pH POC ABG pCO2 POC ABG pO2 ABG Hemoglobin ABG Oxyhemoglobin ABG Sodium ABG Potassium ABG Chloride ABG Glucose Carboxyhemoglobin Sodium Potassium Chloride BUN Creatinine Glucose POC Glucose 126 H 160 H 121 H Lactic Acid Calcium Phosphorus AST ALT Troponin T C-Reactive Protein Albumin HDL Cholesterol Arterial Blood Glucose Arterial Blood Ionized Calcium Urine WBC (Auto) 10/02/20 10/02/20 10/02/20 06:48 06:48 11:51 WBC 14.2 H Hgb 9.6 L Hct MCV MCH 25 L RDW 21.7 H Lymph % (Auto) [place] % (Auto) Lymph # (Auto) [place] # (Auto) Seg Neutrophils % Seg Neutrophils # APTT Heparin Anti-Xa Level ABG pH POC ABG pCO2 POC ABG pO2 ABG Hemoglobin ABG Oxyhemoglobin ABG Sodium ABG Potassium ABG Chloride ABG Glucose Carboxyhemoglobin Sodium 147 H Potassium Chloride 110.4 H BUN Creatinine Glucose 134 H POC Glucose 121 H Lactic Acid Calcium Phosphorus 2.20 L AST ALT Troponin T C-Reactive Protein Albumin HDL Cholesterol Arterial Blood Glucose Arterial Blood Ionized Calcium Urine WBC (Auto) 10/02/20 10/03/20 10/03/20 17:19 00:35 07:24 WBC 12.9 H Hgb 8.9 L Hct 29.6 L MCV MCH 24 L RDW 21.9 H Lymph % (Auto) [place] % (Auto) Lymph # (Auto) [place] # (Auto) Seg Neutrophils % Seg Neutrophils # APTT Heparin Anti-Xa Level ABG pH POC ABG pCO2 POC ABG pO2 ABG Hemoglobin ABG Oxyhemoglobin ABG Sodium ABG Potassium ABG Chloride ABG Glucose Carboxyhemoglobin Sodium Potassium Chloride BUN Creatinine Glucose POC Glucose 107 H 112 H Lactic Acid Calcium Phosphorus AST ALT Troponin T C-Reactive Protein Albumin HDL Cholesterol Arterial Blood Glucose Arterial Blood Ionized Calcium Urine WBC (Auto) 10/03/20 10/03/20 10/03/20 07:24 17:27 20:19 WBC Hgb Hct MCV MCH RDW Lymph % (Auto) [place] % (Auto) Lymph # (Auto) [place] # (Auto) Seg Neutrophils % Seg Neutrophils # APTT Heparin Anti-Xa Level 0.18 L ABG pH POC ABG pCO2 POC ABG pO2 ABG Hemoglobin ABG Oxyhemoglobin ABG Sodium ABG Potassium ABG Chloride ABG Glucose Carboxyhemoglobin Sodium 147 H Potassium Chloride 110.4 H BUN Creatinine Glucose 128 H POC Glucose 136 H Lactic Acid Calcium Phosphorus AST ALT Troponin T C-Reactive Protein Albumin HDL Cholesterol Arterial Blood Glucose Arterial Blood Ionized Calcium Urine WBC (Auto) 10/03/20 10/04/20 10/04/20 23:34 04:07 06:12 WBC Hgb Hct MCV MCH RDW Lymph % (Auto) [place] % (Auto) Lymph # (Auto) [place] # (Auto) Seg Neutrophils % Seg Neutrophils # APTT Heparin Anti-Xa Level 0.25 L ABG pH POC ABG pCO2 POC ABG pO2 ABG Hemoglobin ABG Oxyhemoglobin ABG Sodium ABG Potassium ABG Chloride ABG Glucose Carboxyhemoglobin Sodium Potassium Chloride BUN Creatinine Glucose POC Glucose 119 H 128 H Lactic Acid Calcium Phosphorus AST ALT Troponin T C-Reactive Protein Albumin HDL Cholesterol Arterial Blood Glucose Arterial Blood Ionized Calcium Urine WBC (Auto) 10/04/20 10/04/20 10/05/20 11:38 17:39 00:17 WBC Hgb Hct MCV MCH RDW Lymph % (Auto) [place] % (Auto) Lymph # (Auto) [place] # (Auto) Seg Neutrophils % Seg Neutrophils # APTT Heparin Anti-Xa Level ABG pH POC ABG pCO2 POC ABG pO2 ABG Hemoglobin ABG Oxyhemoglobin ABG Sodium ABG Potassium ABG Chloride ABG Glucose Carboxyhemoglobin Sodium Potassium Chloride BUN Creatinine Glucose POC Glucose 129 H 136 H 125 H Lactic Acid Calcium Phosphorus AST ALT Troponin T C-Reactive Protein Albumin HDL Cholesterol Arterial Blood Glucose Arterial Blood Ionized Calcium Urine WBC (Auto) 10/05/20 10/05/20 10/05/20 04:17 04:17 05:31 WBC 13.0 H Hgb 9.1 L Hct 29.5 L MCV MCH 25 L RDW 22.2 H Lymph % (Auto) [place] % (Auto) Lymph # (Auto) [place] # (Auto) Seg Neutrophils % Seg Neutrophils # APTT Heparin Anti-Xa Level ABG pH POC ABG pCO2 POC ABG pO2 ABG Hemoglobin ABG Oxyhemoglobin ABG Sodium ABG Potassium ABG Chloride ABG Glucose Carboxyhemoglobin Sodium Potassium Chloride BUN Creatinine Glucose 148 H POC Glucose 160 H Lactic Acid Calcium Phosphorus AST ALT Troponin T C-Reactive Protein Albumin HDL Cholesterol Arterial Blood Glucose Arterial Blood Ionized Calcium Urine WBC (Auto) Chest x-ray: image reviewed Allied health notes reviewed: RT
[2020-10-05] MEDS: MODAFINIL 100 MG TAB PO SCH (09:33)
[2020-10-05] MEDS: LOSARTAN 25 MG TAB PO SCH (09:33)
[2020-10-05] MEDS: FAMOTIDINE 20 MG TAB PO SCH ×2 (09:33→21:10)
[2020-10-05] MEDS: ASPIRIN 81 MG TAB CHEW PO SCH (09:33)
[2020-10-05] MEDS: levETIRAcetam 500 MG/5 ML ORAL LIQD PO SCH ×2 (09:34→21:10)
[2020-10-05] MEDS: carvediloL 12.5 MG TAB PO SCH ×2 (09:34→21:10)
--- NOTE | 2020-10-05 11:04 | Progress Note ---
<TABITHACHANTELLLaci - Last Filed: 10/05/20 11:05> Assessment and Plan Assessment and plan: This is a 45-year-old female with OHS and GERD who presented s/p cardiac arrest S/p cardiac arrest Sepsis Global anoxic brain injury Small acute lacunar infarct in the right lesia Acute hypoxic respiratory failure NSTEMI Leukocytosis Pneumonia Seizure disorder Obesity GERD -CCM, neurology, cardiology, PT consulted, patient recommendations -09/25 CTA chest shows no CT evidence of pulmonary embolism, consolidative changes within both dependent lungs may be due to aspiration -09/25 CT head shows no evidence of acute abnormality, no evidence of acute ischemic injury, hemorrhage, mass affect -09/25 echocardiogram shows left ventricular mildly dilated, left ventricle systolic function severely decreased, left ventricular ejection fraction is 70 decreased, severe global hypokinesis of the left ventricle, LVEF 20 to 25% -09/26 CXR shows slight interval worsening of bilateral parenchymal disease also be secondary to pneumonia possibly aspiration pneumonia -09/27 CXR shows much improved appearance of the chest with improving bilateral pulmonary opacities -09/27 EEG shows significant abnormal record with low voltage 2-400 noted throu ghout this recording, admixed with low voltage fast beta activity noted frontally, findings suggestive of possible cortical dysfunction and/or encephalopathy and/or post cardiac arrest, possibility of post ictal stage cannot be totally excluded -10/02 MRI showed diffuse cerebral restricted diffusion consistent with global anoxic brain injury, no associated hemorrhage or herniation and additional small acute lacunar infarct in the right lesia -10/01 BLE Doppler ultrasound negative for DVT -TF, ssi, accucheck q6 -s/p Heparin drip -Aspirin, BB, ACEi -Keppra -Seizure/aspiration precautions -Ativan as needed -As needed labetalol for SBP>160 -Trend CBC, BMP DVT/GI prophylaxis: Pepcid, heparin subq, SCDs to bilateral directions while in bed Disposition: ICU, awaiting family decision about goals of care Lines: PIV, DHT The high probability of a clinically significant, sudden or life threatening deterioration of the [cardiac, pulmonary, renal, neuro] system(s) required my full and direct attention, intervention and personal management. The aggregate critical care time was [35] minutes. This time is in addition to time spent performing reported procedures but includes the following: [x] Data Review and interpretation [x] Patient assessment and monitoring of vital signs [x] Documentation [x] Medication orders and management History Interval history: 45-year-old female with obesity hypoventilation syndrome and GERD who presented to the emergency department on 09/30 s/p cardiac arrest via EMS. Per EMS staff they were notified for shortness of breath and upon arrival patient was found to be in distress and subsequently went into cardiac arrest and she was treated in accordance to ACLS protocol and intubated in the field and transported to [facility]. Evaluation in the emergency department upon arrival to the emergency department patient was found to have persistent hypoxic respiratory failure and was maintained on ventilator support. Work-up revealed sepsis, pneumonia, seizure disorder, metabolic acidosis as well as NSTEMI. Cardiology, neurology, CCM were consulted. 09/26/2020: Patient remains unresponsive, intubated on ventilatory support. 09/27/2020; patient remains unresponsive, intubated on ventilatory support Follow neurology evaluation and recommendations Very poor prognosis, I spoke with patient's aunt Ms. Debora Minor 09/26/2020 About patient's condition , tests and reports and very poor prognosis. She verbalized understanding. I discussed the CODE STATUS Full code at this point 09/28/2020 S/p cardiac arrest outside the facility Intubated and unresponsive We will discuss CODE STATUS again 09/29/2020 S/p cardiac arrest Intubated and unresponsive Will request ethics consult and family meeting again regarding the prognosis and outcome 09/30/20 Discussed with family They will decide about DNR--amenable 10/01: Patient has persistent leukocytosis and hyperchloremia. Patient now has hypernatremia and renal function has improved to CR/BUN 1.1/15 from 1.18. Patient has hypophosphatemia which was repleted yesterday and we will obtain a.m. labs. Patient has MRI brain pending. Family updated by neurology over the phone and FRAME BENDER at bedside. Patient niece was at bedside today and she will defer goals of care decision after MRI results. EEG findings were explained. According to her the patient was in found to be unresponsive by family and was given bystander CPR before arrival of EMS. 10/02: Patient received MRI brain today which showed diffuse cerebral restricted diffusion consistent with global anoxic brain injury, no associated hemorrhage or herniation and additional small acute lacunar infarct in the right paracentral lesia. Patient was hypotensive today and received a bolus of fluids with recovery. At the time examination patient on a CPAP trial of 09/26 and on 25% FiO2. Today we removed the patient's Grace catheter, discontinued bowel regimen and ask RN to follow-up on bilateral lower extremity Doppler ultrasounds. Patient noted to be hypernatremic and free water flushes were increased. 10/03: Cardiology will follow the patient peripherally given poor prognosis, Dr. Alvarado and has spoken to the family regarding prognosis today. Given hypotension patient will receive lower doses of blood pressure medicine and per social media marketing analyst request a referral to [facility]. Patient will be started on maintenance IV fluid. Patient slight hyperchloremia and hypernatremia persists. Patient received treatment phosphorus and we will recheck level in the a.m. Her leukocytosis improved. H/H is slowly drifting down. She remains on heparin drip. 10/04: Patient bilateral Doppler ultrasound are negative and heparin drip has been stopped. [facility] referral made by CM which was denied. Family is aware. No acute events reported overnight. CPAP trial at the time my examination. 10/05: Today patient is no longer hypernatremic so free water flushes were resume at the rate nutrition as ordered. Decrease in Cozaar today patient's T-max 100.7 which was responsive to Tylenol. At the time examination patient is on assist control tidal volume 450, rate of 12, PEEP of 6 and 25% FiO2. Patient will be tried on a CPAP trial today. Hospitalist Physical - Constitutional Vitals: Temp Pulse Resp BP Pulse Ox 100.7 F H 80 23 114/54 97 10/05/20 00:00 10/05/20 10:00 10/05/20 10:00 10/05/20 10:10/05/20 10:00 General appearance: Present: no acute distress, well-nourished, other (not responsive ) - EENT Eyes: Present: mydriasis. Absent: PERRL, EOM intact ENT: dentition normal - Neck Neck: Absent: masses or JVD, cervical LAD - Respiratory Respiratory effort: normal Respiratory: bilateral: CTA, diminished - Cardiovascular Rhythm: regular Heart Sounds: Present: S1 & S2. Absent: systolic murmur, diastolic murmur - Extremities Extremities: no ischemia, pulses intact, pulses symmetrical, No edema, normal temperature, normal color Peripheral Pulses: within normal limits - Abdominal General gastrointestinal: soft, non-tender, non-distended, normal bowel sounds - Integumentary Integumentary: Present: warm, dry - Psychiatric Psychiatric: other (not interactive ) - Neurologic Neurologic: no CNII-XII intact, no moves all extremities, other (Not responsive to tactile or verbal stimuli, pupils not reactive to light) HEART Score - HEART Score Troponin: Troponin T < 0.010 ng/mL (0.00-0.029) 10/02/20 06:48 Results - Labs CBC & Chem 7: 10/05/20 04:17 10/05/20 04:17 Labs: Laboratory Last Values WBC 13.0 K/mm3 (4.5-11.0) H 10/05/20 04:17 RBC 3.70 M/mm3 (3.65-5.03) 10/05/20 04:17 Hgb 9.1 gm/dl (10.1-14.3) L 10/05/20 04:17 Hct 29.5 % (30.3-42.9) L 10/05/20 04:17 MCV 80 fl (79-97) 10/05/20 04:17 MCH 25 pg (28-32) L 10/05/20 04:17 MCHC 31 % (30-34) 10/05/20 04:17 RDW 22.2 % (13.2-15.2) H 10/05/20 04:17 Plt Count 434 K/mm3 (140-440) 10/05/20 04:17 Lymph % (Auto) 20.1 % (13.4-35.0) 09/30/20 15:05 Gladwin % (Auto) 13.5 % (0.0-7.3) H 09/30/20 15:05 Eos % (Auto) 0.4 % (0.0-4.3) 09/30/20 15:05 Baso % (Auto) 1.0 % (0.0-1.8) 09/30/20 15:05 Lymph # (Auto) 2.5 K/mm3 (1.2-5.4) 09/30/20 15:05 Gladwin # (Auto) 1.7 K/mm3 (0.0-0.8) H 09/30/20 15:05 Eos # (Auto) 0.0 K/mm3 (0.0-0.4) 09/30/20 15:05 Baso # (Auto) 0.1 K/mm3 (0.0-0.1) 09/30/20 15:05 Seg Neutrophils % 65.0 % (40.0-70.0) 09/30/20 15:05 Seg Neutrophils # 8.1 K/mm3 (1.8-7.7) H 09/30/20 15:05 PT 13.7 Sec. (12.2-14.9) 09/25/20 18:15 INR 1.00 (0.87-1.13) 09/25/20 18:15 APTT 21.1 Sec. (24.2-36.6) L 09/25/20 18:15 Heparin Anti-Xa Level 0.25 U.I./ml (0.3-0.7) L 10/04/20 04:07 ABG pH 7.424 (7.320-7.450) 10/01/20 04:12 POC ABG pCO2 41.6 mmHg (32.0-48.0) 10/01/20 04:12 POC ABG pO2 73.0 mmHg (83-108) L 10/01/20 04:12 POC ABG HCO3 26.6 10/01/20 04:12 ABG O2 Saturation 94.3 (0-100) 10/01/20 04:12 POC ABG Base Excess 2.0 10/01/20 04:12 ABG Hemoglobin 10.0 (12.0-17.5) L 10/01/20 04:12 ABG Oxyhemoglobin 93.7 (94-98) L 10/01/20 04:12 ABG Methemoglobin 0.3 (0.0-1.5) 10/01/20 04:12 ABG Sodium 146.4 mmol/L (136.0-145.0) H 10/01/20 04:12 ABG Potassium 3.8 mmol/L (3.40-4.50) 10/01/20 04:12 ABG Chloride 110.0 mmol/L (98-107) H 10/01/20 04:12 ABG Glucose 124 mg/dL (65-95) H 10/01/20 04:12 Carboxyhemoglobin 0.3 (0.5-1.5) L 10/01/20 04:12 FiO2 % 25.0 10/01/20 04:12 Sodium 141 mmol/L (137-145) 10/05/20 04:17 Potassium 4.9 mmol/L (3.6-5.0) 10/05/20 04:17 Chloride 104.6 mmol/L (98-107) 10/05/20 04:17 Carbon Dioxide 25 mmol/L (22-30) 10/05/20 04:17 Anion Gap 16 mmol/L 10/05/20 04:17 BUN 15 mg/dL (7-17) 10/05/20 04:17 Creatinine 0.8 mg/dL (0.6-1.2) 10/05/20 04:17 Estimated GFR > 60 ml/min 10/05/20 04:17 BUN/Creatinine Ratio 19 % 10/05/20 04:17 Glucose 148 mg/dL (65-100) H 10/05/20 04:17 POC Glucose 160 mg/dL (70-105) H 10/05/20 05:31 Lactic Acid 1.00 mmol/L (0.7-2.0) 09/27/20 04:41 Calcium 9.4 mg/dL (8.4-10.2) 10/05/20 04:17 Phosphorus 2.70 mg/dL (2.5-4.5) 10/04/20 04:07 Magnesium 2.20 mg/dL (1.7-2.3) 10/02/20 06:48 Total Bilirubin 0.20 mg/dL (0.1-1.2) 09/28/20 05:02 AST 129 units/L (5-40) H 09/28/20 05:02 ALT 60 units/L (7-56) H 09/28/20 05:02 Alkaline Phosphatase 84 units/L (35-129) 09/28/20 05:02 Troponin T < 0.010 ng/mL (0.00-0.029) 10/02/20 06:48 C-Reactive Protein 4.30 mg/dL (0.00-1.30) H 09/26/20 15:45 Total Protein 6.9 g/dL (6.3-8.2) 09/28/20 05:02 Albumin 3.7 g/dL (3.9-5) L 09/28/20 05:02 Albumin/Globulin Ratio 1.2 % 09/28/20 05:02 Triglycerides 40 mg/dL (2-149) 09/25/20 23:13 Cholesterol 132 mg/dL (50-199) 09/25/20 23:13 LDL Cholesterol Direct 66 mg/dL (50-130) 09/25/20 23:13 HDL Cholesterol 60 mg/dL (40-59) H 09/25/20 23:13 Cholesterol/HDL Ratio 2.20 % 09/25/20 23:13 Procalcitonin 0.31 ng/mL (<0.15) 09/26/20 15:45 Arterial Blood Glucose 124 mg/dL (65-95) H 10/01/20 04:12 Arterial Blood Ionized Calcium 4.8 mg/dL (4.6-5.3) 10/01/20 04:12 Urine Color Yellow (Yellow) 09/25/20 17:19 Urine Turbidity Cloudy (Clear) 09/25/20 17:19 Urine pH 7.0 (5.0-7.0) 09/25/20 17:19 Ur Specific Union 1.012 (1.003-1.030) 09/25/20 17:19 Urine Protein >500 mg/dL (Negative) 09/25/20 17:19 Urine Glucose (UA) 50 mg/dL (Negative) 09/25/20 17:19 Urine Ketones Neg mg/dL (Negative) 09/25/20 17:19 Urine Blood Sm (Negative) 09/25/20 17:19 Urine Nitrite Neg (Negative) 09/25/20 17:19 Urine Bilirubin Neg (Negative) 09/25/20 17:19 Urine Urobilinogen < 2.0 mg/dL (<2.0) 09/25/20 17:19 Ur Leukocyte Esterase Neg (Negative) 09/25/20 17:19 Urine WBC (Auto) 14.0 /HPF (0.0-6.0) H 09/25/20 17:19 Urine RBC (Auto) 101.0 /HPF (0.0-6.0) 09/25/20 17:19 U Epithel Cells (Auto) 1.0 /HPF (0-13.0) 09/25/20 17:19 Urine Bacteria (Auto) 1+ /HPF (Negative) 09/25/20 17:19 Urine HCG, Qual Negative (Negative) 09/25/20 17:19 Urine Opiates Screen Presumptive negative 09/25/20 17:19 Urine Methadone Screen Presumptive negative 09/25/20 17:19 Ur Barbiturates Screen Presumptive negative 09/25/20 17:19 Ur Phencyclidine Scrn Presumptive negative 09/25/20 17:19 Ur Amphetamines Screen Presumptive negative 09/25/20 17:19 U Benzodiazepines Scrn Presumptive negative 09/25/20 17:19 Urine Cocaine Screen Presumptive negative 09/25/20 17:19 U Marijuana (THC) Screen Presumptive negative 09/25/20 17:19 Drugs of Abuse Note Disclamer 09/25/20 17:19 Coronavirus (PCR) Negative (Negative) 09/26/20 Unknown Blood Type B POSITIVE 09/25/20 19:00 Antibody Screen Negative 09/25/20 19:00 Grace/IV: Voiding Method External Female Catheter Active Medications - Current Medications Current Medications: Generic Name Dose Route Start Last Admin Trade Name Freq PRN Reason Stop Dose Admin Acetaminophen 650 mg 09/25/20 18:45 Acetaminophen 650 Mg Rect Supp NJ Q6H PRN Pain MILD(1-3)/Fever >100.5/RUIZ Acetaminophen 650 mg 09/25/20 18:49 10/05/20 00:28 Acetaminophen 325 Mg Tab PO 650 mg Q6H PRN Administration Pain, Mild (1-3) Albuterol 2.5 mg 09/25/20 18:45 Albuterol 2.5 Mg/3 Ml Nebu IH Q3HRT PRN Shortness Of Breath Lipase/Protease/Amylase 1 each 09/27/20 13:01 Lipase 10,500/Protease 25,000/Amylase 43,750 (Units) Dr Davis FEEDTUBE PRN PRN For Clogged Feeding Tube Aspirin 81 mg 10/01/20 10:00 10/05/20 09:33 Aspirin 81 Mg Tab Chew PO 81 mg QDAY RAMESH Administration Carvedilol 12.5 mg 10/02/20 22:00 10/05/20 09:34 Carvedilol 12.5 Mg Tab PO 12.5 mg BID RAMESH Administration Famotidine 20 mg 09/30/20 10:00 06/19/21 09:33 Famotidine 20 Mg Tab PO 20 mg BID RAMESH Administration Heparin Sodium (Porcine) 5,000 unit 10/04/20 14:00 10/05/20 05:40 Heparin 5,000 Unit/1 Ml Vial SUB-Q 5,000 unit Q8HR RAMESH Administration Hydromorphone HCl 0.25 mg 09/25/20 18:49 09/30/20 14:05 Hydromorphone 1 Mg/1 Ml Inj IV 0.25 mg Q4H PRN Administration Pain, Moderate (4-6) Hydrophilic Ointment 1 applic 09/25/20 16:52 Lip Therapy Vaseline TP Q2HR PRN Dry Lips Propofol 1,000 mg in 100 mls @ 3.201 mls/hr 09/26/20 14:00 09/28/20 19:01 Diprivan 10 Mg/Ml IV 0 mcg/kg/min TITR RAMESH 0 mls/hr Titration Protocol 5 MCG/KG/MIN Labetalol HCl 10 mg 09/27/20 12:51 09/30/20 14:02 Labetalol 20 Mg/4 Ml Inj IV 10 mg Q4H PRN Administration Blood Pressure Levetiracetam 750 mg 09/30/20 22:00 10/05/20 09:34 Levetiracetam 500 Mg/5 Ml Oral Liqd PO 750 mg BID RAMESH Administration Lorazepam 2 mg 09/26/20 13:45 Lorazepam 2 Mg/Ml Vial IV Q4H PRN Seizures Losartan Potassium 25 mg 10/05/20 10:00 10/05/20 09:33 Losartan 25 Mg Tab PO 25 mg QDAY RAMESH Administration Metoclopramide HCl 10 mg 09/30/20 16:33 09/30/20 20:20 Metoclopramide 10 Mg/2 Ml Inj IV 10 mg Q6H PRN Administration Nausea And Vomiting Modafinil 100 mg 10/05/20 10:00 10/05/20 09:33 Modafinil 100 Mg Tab PO 100 mg QAM RAMESH Administration Multi-Ingred Cream/Lotion/Oil/Oint 1 applic 09/25/20 16:52 09/28/20 22:02 Mineral Oil/Petrolatum, White Ophth Oint 3.5 Gm OU 1 applic Q4HR PRN Administration Dry Eye(s) Ondansetron HCl 4 mg 09/30/20 01:25 09/30/20 10:01 Ondansetron 4 Mg/2 Ml Inj IV 4 mg Q8H PRN Administration Nausea And Vomiting Scopolamine 1 each 10/01/20 16:00 10/02/20 09:43 Scopolamine Transdermal Patch 72 Hr TD 1 each Q72HR RAMESH Administration Simple Syrup 15 ml 09/27/20 13:01 Simple Syrup 15 Ml FEEDTUBE PRN PRN Hypoglycemia Simple Syrup 30 ml 09/27/20 13:01 09/29/20 06:13 Simple Syrup 15 Ml FEEDTUBE 30 ml PRN PRN Administration Hypoglycemia Sodium Bicarbonate 325 mg 09/27/20 13:01 Sodium Bicarbonate 325 Mg Tab FEEDTUBE PRN PRN For Clogged Feeding Tube Sodium Chloride 10 ml 09/25/20 22:00 10/05/20 09:34 Sodium Chloride 0.9% 10 Ml Flush Syringe IV 10 ml BID RAMESH Administration Sodium Chloride 10 ml 09/25/20 18:45 Sodium Chloride 0.9% 10 Ml Flush Syringe IV PRN PRN LINE FLUSH Nutrition/Malnutrition Assess - Dietary Evaluation Nutrition/Malnutrition Findings: Nutrition Notes Start: 09/27/20 12:48 Freq: Status: Active Protocol: Document 10/03/20 13:47 ARMANDO (Rec: 10/03/20 13:48 ARMANDO [id number]) Nutrition Notes Initial or Follow up Brief Note Subjective/Other Information Change F/U date to 10/07. Nutrition Intervention Follow-Up By: 10/07/20 Additional Comments F/U: stable TF, vent status <MAX FERMIN - Last Filed: 10/05/20 14:26> Assessment and Plan Assessment and plan: Agree with assessment and plan as outlined as above. Patient continues to have fevers, will repeat chest x-ray will start cefepime. However blood cultures have been completely negative and patient is Covid negative. Patient is on CPAP trials today. Hospitalist Physical - Constitutional Vitals: Temp Pulse Resp BP Pulse Ox 100.7 F H 84 23 114/55 98 10/05/20 00:00 10/05/20 12:00 10/05/20 12:00 10/05/20 12:00 10/05/20 12:00 HEART Score - HEART Score Troponin: Troponin T < 0.010 ng/mL (0.00-0.029) 10/02/20 06:48 Results - Labs CBC & Chem 7: 10/05/20 04:17 10/05/20 04:17 Labs: Laboratory Last Values WBC 13.0 K/mm3 (4.5-11.0) H 10/05/20 04:17 RBC 3.70 M/mm3 (3.65-5.03) 10/05/20 04:17 Hgb 9.1 gm/dl (10.1-14.3) L 10/05/20 04:17 Hct 29.5 % (30.3-42.9) L 10/05/20 04:17 MCV 80 fl (79-97) 10/05/20 04:17 MCH 25 pg (28-32) L 10/05/20 04:17 MCHC 31 % (30-34) 10/05/20 04:17 RDW 22.2 % (13.2-15.2) H 10/05/20 04:17 Plt Count 434 K/mm3 (140-440) 10/05/20 04:17 Lymph % (Auto) 20.1 % (13.4-35.0) 09/30/20 15:05 Gladwin % (Auto) 13.5 % (0.0-7.3) H 09/30/20 15:05 Eos % (Auto) 0.4 % (0.0-4.3) 09/30/20 15:05 Baso % (Auto) 1.0 % (0.0-1.8) 09/30/20 15:05 Lymph # (Auto) 2.5 K/mm3 (1.2-5.4) 09/30/20 15:05 Gladwin # (Auto) 1.7 K/mm3 (0.0-0.8) H 09/30/20 15:05 Eos # (Auto) 0.0 K/mm3 (0.0-0.4) 09/30/20 15:05 Baso # (Auto) 0.1 K/mm3 (0.0-0.1) 09/30/20 15:05 Seg Neutrophils % 65.0 % (40.0-70.0) 09/30/20 15:05 Seg Neutrophils # 8.1 K/mm3 (1.8-7.7) H 09/30/20 15:05 PT 13.7 Sec. (12.2-14.9) 09/25/20 18:15 INR 1.00 (0.87-1.13) 09/25/20 18:15 APTT 21.1 Sec. (24.2-36.6) L 09/25/20 18:15 Heparin Anti-Xa Level 0.25 U.I./ml (0.3-0.7) L 10/04/20 04:07 ABG pH 7.424 (7.320-7.450) 10/01/20 04:12 POC ABG pCO2 41.6 mmHg (32.0-48.0) 10/01/20 04:12 POC ABG pO2 73.0 mmHg (83-108) L 10/01/20 04:12 POC ABG HCO3 26.6 10/01/20 04:12 ABG O2 Saturation 94.3 (0-100) 10/01/20 04:12 POC ABG Base Excess 2.0 10/01/20 04:12 ABG Hemoglobin 10.0 (12.0-17.5) L 10/01/20 04:12 ABG Oxyhemoglobin 93.7 (94-98) L 10/01/20 04:12 ABG Methemoglobin 0.3 (0.0-1.5) 10/01/20 04:12 ABG Sodium 146.4 mmol/L (136.0-145.0) H 10/01/20 04:12 ABG Potassium 3.8 mmol/L (3.40-4.50) 10/01/20 04:12 ABG Chloride 110.0 mmol/L (98-107) H 10/01/20 04:12 ABG Glucose 124 mg/dL (65-95) H 10/01/20 04:12 Carboxyhemoglobin 0.3 (0.5-1.5) L 10/01/20 04:12 FiO2 % 25.0 10/01/20 04:12 Sodium 141 mmol/L (137-145) 10/05/20 04:17 Potassium 4.9 mmol/L (3.6-5.0) 10/05/20 04:17 Chloride 104.6 mmol/L (98-107) 10/05/20 04:17 Carbon Dioxide 25 mmol/L (22-30) 10/05/20 04:17 Anion Gap 16 mmol/L 10/05/20 04:17 BUN 15 mg/dL (7-17) 10/05/20 04:17 Creatinine 0.8 mg/dL (0.6-1.2) 10/05/20 04:17 Estimated GFR > 60 ml/min 10/05/20 04:17 BUN/Creatinine Ratio 19 % 10/05/20 04:17 Glucose 148 mg/dL (65-100) H 10/05/20 04:17 POC Glucose 148 mg/dL (70-105) H 10/05/20 12:09 Lactic Acid 1.00 mmol/L (0.7-2.0) 09/27/20 04:41 Calcium 9.4 mg/dL (8.4-10.2) 10/05/20 04:17 Phosphorus 2.70 mg/dL (2.5-4.5) 10/04/20 04:07 Magnesium 2.20 mg/dL (1.7-2.3) 10/02/20 06:48 Total Bilirubin 0.20 mg/dL (0.1-1.2) 09/28/20 05:02 AST 129 units/L (5-40) H 09/28/20 05:02 ALT 60 units/L (7-56) H 09/28/20 05:02 Alkaline Phosphatase 84 units/L (35-129) 09/28/20 05:02 Troponin T < 0.010 ng/mL (0.00-0.029) 10/02/20 06:48 C-Reactive Protein 4.30 mg/dL (0.00-1.30) H 09/26/20 15:45 Total Protein 6.9 g/dL (6.3-8.2) 09/28/20 05:02 Albumin 3.7 g/dL (3.9-5) L 09/28/20 05:02 Albumin/Globulin Ratio 1.2 % 09/28/20 05:02 Triglycerides 40 mg/dL (2-149) 09/25/20 23:13 Cholesterol 132 mg/dL (50-199) 09/25/20 23:13 LDL Cholesterol Direct 66 mg/dL (50-130) 09/25/20 23:13 HDL Cholesterol 60 mg/dL (40-59) H 09/25/20 23:13 Cholesterol/HDL Ratio 2.20 % 09/25/20 23:13 Procalcitonin 0.31 ng/mL (<0.15) 09/26/20 15:45 Arterial Blood Glucose 124 mg/dL (65-95) H 10/01/20 04:12 Arterial Blood Ionized Calcium 4.8 mg/dL (4.6-5.3) 10/01/20 04:12 Urine Color Yellow (Yellow) 09/25/20 17:19 Urine Turbidity Cloudy (Clear) 09/25/20 17:19 Urine pH 7.0 (5.0-7.0) 09/25/20 17:19 Ur Specific Union 1.012 (1.003-1.030) 09/25/20 17:19 Urine Protein >500 mg/dL (Negative) 09/25/20 17:19 Urine Glucose (UA) 50 mg/dL (Negative) 09/25/20 17:19 Urine Ketones Neg mg/dL (Negative) 09/25/20 17:19 Urine Blood Sm (Negative) 09/25/20 17:19 Urine Nitrite Neg (Negative) 09/25/20 17:19 Urine Bilirubin Neg (Negative) 09/25/20 17:19 Urine Urobilinogen < 2.0 mg/dL (<2.0) 09/25/20 17:19 Ur Leukocyte Esterase Neg (Negative) 09/25/20 17:19 Urine WBC (Auto) 14.0 /HPF (0.0-6.0) H 09/25/20 17:19 Urine RBC (Auto) 101.0 /HPF (0.0-6.0) 09/25/20 17:19 U Epithel Cells (Auto) 1.0 /HPF (0-13.0) 09/25/20 17:19 Urine Bacteria (Auto) 1+ /HPF (Negative) 09/25/20 17:19 Urine HCG, Qual Negative (Negative) 09/25/20 17:19 Urine Opiates Screen Presumptive negative 09/25/20 17:19 Urine Methadone Screen Presumptive negative 09/25/20 17:19 Ur Barbiturates Screen Presumptive negative 09/25/20 17:19 Ur Phencyclidine Scrn Presumptive negative 09/25/20 17:19 Ur Amphetamines Screen Presumptive negative 09/25/20 17:19 U Benzodiazepines Scrn Presumptive negative 09/25/20 17:19 Urine Cocaine Screen Presumptive negative 09/25/20 17:19 U Marijuana (THC) Screen Presumptive negative 09/25/20 17:19 Drugs of Abuse Note Disclamer 09/25/20 17:19 Coronavirus (PCR) Negative (Negative) 09/26/20 Unknown Blood Type B POSITIVE 09/25/20 19:00 Antibody Screen Negative 09/25/20 19:00 Grace/IV: Voiding Method External Female Catheter Active Medications - Current Medications Current Medications: Generic Name Dose Route Start Last Admin Trade Name Freq PRN Reason Stop Dose Admin Acetaminophen 650 mg 09/25/20 18:45 Acetaminophen 650 Mg Rect Supp NJ Q6H PRN Pain MILD(1-3)/Fever >100.5/RUIZ Acetaminophen 650 mg 09/25/20 18:49 10/05/20 00:28 Acetaminophen 325 Mg Tab PO 650 mg Q6H PRN Administration Pain, Mild (1-3) Albuterol 2.5 mg 09/25/20 18:45 Albuterol 2.5 Mg/3 Ml Nebu IH Q3HRT PRN Shortness Of Breath Lipase/Protease/Amylase 1 each 09/27/20 13:01 Lipase 10,500/Protease 25,000/Amylase 43,750 (Units) Dr Davis FEEDTUBE PRN PRN For Clogged Feeding Tube Aspirin 81 mg 10/01/20 10:00 10/05/20 09:33 Aspirin 81 Mg Tab Chew PO 81 mg QDAY RAMESH Administration Carvedilol 12.5 mg 10/02/20 22:00 10/05/20 09:34 Carvedilol 12.5 Mg Tab PO 12.5 mg BID RAMESH Administration Famotidine 20 mg 09/30/20 10:00 10/05/20 09:33 Famotidine 20 Mg Tab PO 20 mg BID RAMESH Administration Heparin Sodium (Porcine) 5,000 unit 10/04/20 14:00 10/05/20 14:10 Heparin 5,000 Unit/1 Ml Vial SUB-Q 5,000 unit Q8HR RAMESH Administration Hydromorphone HCl 0.25 mg 09/25/20 18:49 09/30/20 14:05 Hydromorphone 1 Mg/1 Ml Inj IV 0.25 mg Q4H PRN Administration Pain, Moderate (4-6) Hydrophilic Ointment 1 applic 09/25/20 16:52 Lip Therapy Vaseline TP Q2HR PRN Dry Lips Propofol 1,000 mg in 100 mls @ 3.201 mls/hr 09/26/20 14:00 09/28/20 19:01 Diprivan 10 Mg/Ml IV 0 mcg/kg/min TITR RAMESH 0 mls/hr Titration Protocol 5 MCG/KG/MIN Cefepime HCl 2 gm in 100 mls @ 200 mls/hr 10/05/20 15:00 Cefepime/Ns 2 Gm/100 Ml IV Q8HR RAMESH Protocol Labetalol HCl 10 mg 09/27/20 12:51 09/30/20 14:02 Labetalol 20 Mg/4 Ml Inj IV 10 mg Q4H PRN Administration Blood Pressure Levetiracetam 750 mg 09/30/20 22:00 10/05/20 09:34 Levetiracetam 500 Mg/5 Ml Oral Liqd PO 750 mg BID RAMESH Administration Lorazepam 2 mg 09/26/20 13:45 Lorazepam 2 Mg/Ml Vial IV Q4H PRN Seizures Losartan Potassium 25 mg 10/05/20 10:00 10/05/20 09:33 Losartan 25 Mg Tab PO 25 mg QDAY RAMESH Administration Metoclopramide HCl 10 mg 09/30/20 16:33 09/30/20 20:20 Metoclopramide 10 Mg/2 Ml Inj IV 10 mg Q6H PRN Administration Nausea And Vomiting Modafinil 100 mg 10/05/20 10:00 10/05/20 09:33 Modafinil 100 Mg Tab PO 100 mg QAM RAMESH Administration Multi-Ingred Cream/Lotion/Oil/Oint 1 applic 09/25/20 16:52 09/28/20 22:02 Mineral Oil/Petrolatum, White Ophth Oint 3.5 Gm OU 1 applic Q4HR PRN Administration Dry Eye(s) Ondansetron HCl 4 mg 09/30/20 01:25 09/30/20 10:01 Ondansetron 4 Mg/2 Ml Inj IV 4 mg Q8H PRN Administration Nausea And Vomiting Scopolamine 1 each 10/01/20 16:00 10/02/20 09:43 Scopolamine Transdermal Patch 72 Hr TD 1 each Q72HR RAMESH Administration Simple Syrup 15 ml 09/27/20 13:01 Simple Syrup 15 Ml FEEDTUBE PRN PRN Hypoglycemia Simple Syrup 30 ml 09/27/20 13:01 09/29/20 06:13 Simple Syrup 15 Ml FEEDTUBE 30 ml PRN PRN Administration Hypoglycemia Sodium Bicarbonate 325 mg 09/27/20 13:01 Sodium Bicarbonate 325 Mg Tab FEEDTUBE PRN PRN For Clogged Feeding Tube Sodium Chloride 10 ml 09/25/20 22:00 10/05/20 09:34 Sodium Chloride 0.9% 10 Ml Flush Syringe IV 10 ml BID RAMESH Administration Sodium Chloride 10 ml 09/25/20 18:45 Sodium Chloride 0.9% 10 Ml Flush Syringe IV PRN PRN LINE FLUSH Nutrition/Malnutrition Assess - Dietary Evaluation Nutrition/Malnutrition Findings: Nutrition Notes Start: 09/27/20 12:48 Freq: Status: Active Protocol: Document 10/03/20 13:47 ARMANDO (Rec: 10/03/20 13:48 ARMANDO [email or web address]) Nutrition Notes Initial or Follow up Brief Note Subjective/Other Information Change F/U date to 10/07. Nutrition Intervention Follow-Up By: 10/07/20 Additional Comments F/U: stable TF, vent status
[2020-10-05] MEDS: CEFEPIME/NS 2 GM/100 ML 2 GM/100 ML BAG IV SCH ×2 (14:45→21:10)
--- NOTE | 2020-10-05 15:01 | XRay Report ---
CHEST 1 VIEW INDICATION: fevers COMPARISON: 10/02/2020 FINDINGS: SUPPORT DEVICES: Endotracheal tubes in good position. Nasogastric tube has tip in the stomach HEART / MEDIASTINUM: No significant abnormality. LUNGS / PLEURA: No significant pulmonary or pleural abnormality. No pneumothorax. ADDITIONAL FINDINGS: IMPRESSION: 1. No acute cardiopulmonary disease Signer Name: Brenden Martines MD Signed: 10/05/2020 2:56 PM Workstation Name: [id number]
[2020-10-06 05:15] LABS: Alanine Aminotransferase 47 units/L (7-56); Albumin 3.3 g/dL (3.9-5); Blood Urea Nitrogen 16 mg/dL (7-17); Calcium 9.3 mg/dL (8.4-10.2); Hemolysis Index 40
[2020-10-06 05:18] LABS: BUN/Creatinine Ratio 27
[2020-10-06] MEDS: HEPARIN 5,000 UNIT/1 ML VIAL SUB-Q SCH ×3 (05:51→21:45)
[2020-10-06] MEDS: CEFEPIME/NS 2 GM/100 ML 2 GM/100 ML BAG IV SCH ×3 (05:51→21:45)
[2020-10-06] MEDS: FAMOTIDINE 20 MG TAB PO SCH ×2 (10:12→21:44)
[2020-10-06] MEDS: ASPIRIN 81 MG TAB CHEW PO SCH (10:12)
[2020-10-06] MEDS: LOSARTAN 25 MG TAB PO SCH (10:12)
[2020-10-06] MEDS: carvediloL 12.5 MG TAB PO SCH ×2 (10:13→21:45)
[2020-10-06] MEDS: levETIRAcetam 500 MG/5 ML ORAL LIQD PO SCH ×2 (10:13→21:44)
[2020-10-06] MEDS: MODAFINIL 100 MG TAB PO SCH ×2 (10:14→13:36)
--- NOTE | 2020-10-06 10:51 | Progress Note ---
Assessment and Plan Cardiac arrest with return of spontaneous circulation. Acute respiratory failure, on mechanical ventilatory support. Acute toxic metabolic encephalopathy. Possible anoxic encephalopathy. Obesity. History of obesity hypoventilation syndrome. Leukocytosis. Likely aspiration pneumonia, bilateral. Anemia that is microcytic. Lactic acidosis. Elevated serum transaminases. Non-ST elevation myocardial infarction Hypernatremia, resolved Unfortunately mental status changes persist, will occasionally open her eyes on verbal and tactile stimulation Continue with cardioprotective measures Empiric Cefepime, get procalcitonin levels, if the results are unremarkable will stop antibitoics. Discussed with Dr. Lynch Monitor temperature curve and trend [facility] Continue with Modafinil for neurostimulation and monitor response and for side effects - Continue to monitor hemodynamics closely while she is on heart failure measures - VTE prophylaxis dosing- dopplers are negative, no evidence of pulmonary embolism - continue free water flushes. Monitor sodium levels - continue to titrate supplemental oxygen to keep SpO2 89-92% - VAP bundle addressed, aspiration precautions HOB >40 - continue lung protective strategies - continue bronchodilators with pulmonary hygiene per RT - wean per pulmonary driven protocols otherwise - continue Daily SBT assessment as tolerated - continue accuchecks with glycemic control per SSI (While critically ill target blood glucose of 140-180 mg/dL; avoid hypoglycemia) - sedation prn for target RASS 0 to -1 - avoid nephrotoxins, renally dose all medications - continue to avoid benzodiazepines, reduce the possibility of delirium - prn analgesia per CPOT score - Maintenance of sleep-wake cycle, avoid delirium - continue enteral nutritional support at goal rate as tolerated - Stress ulcer prophylaxis - PT/OT/ROM exercises - continue mobility, off loading , frequent turning per facility protocols for pressure ulcer prevention - continue other care per attending / other consultants - discharge planning ongoing concurrently CONDITION: CRITICAL PROGNOSIS: GUARDED CODE STATUS: FULL CODE The high probability of a clinically significant, sudden or life-threatening deterioration of the [respiratory, cardiovascular & neurologic] system(s) required my full and direct attention, intervention and personal management. The aggregate critical care time was [31] minutes without overlap. Time includes spent on; [x] Data Review and interpretation [x] Patient assessment and monitoring of vital signs [x] Documentation [x] Medication orders and management Subjective Date of service: 10/06/20 Principal diagnosis: Cardiac arrest; Ac. respiratory failure; Anoxic encephalopathy; PNA; NSTEMI Interval history: Patient is seen today for: Cardiac arrest with ROSC; Acute respiratory failure; Anoxic encephalopathy; Obesity; OHS; Aspiration pneumonia; NSTEMI Seen and examined at bedside; 24hour events reviewed; nursing and respiratory care staff consulted; no adverse overnight events reported to me; resting in bed; remains on MVS, full support. Intermittent fever which responded to Acetaminophen; mental status changes persist. Empiric Cefepime started by hospitalist service Objective Vital Signs - 12hr 10/05/20 10/05/20 10/05/20 23:01 23:30 23:44 Temperature 100.8 F H Pulse Rate 78 90 86 Pulse Rate [ From Monitor] Respiratory 15 19 Rate Blood Pressure 100/44 121/61 121/61 O2 Sat by Pulse 98 97 98 Oximetry 10/05/20 10/06/20 10/06/20 23:47 00:01 00:31 Temperature Pulse Rate 95 H 88 77 Pulse Rate [ From Monitor] Respiratory 15 14 15 Rate Blood Pressure 121/61 110/53 111/46 O2 Sat by Pulse 98 98 99 Oximetry 10/06/20 10/06/20 10/06/20 01:01 01:30 02:00 Temperature Pulse Rate 84 71 83 Pulse Rate [ From Monitor] Respiratory 15 14 15 Rate Blood Pressure 110/53 117/48 104/54 O2 Sat by Pulse 97 96 94 Oximetry 10/06/20 10/06/20 10/06/20 02:30 03:01 03:21 Temperature 100.2 F H Pulse Rate 87 90 Pulse Rate [ From Monitor] Respiratory 15 16 Rate Blood Pressure 113/48 119/55 O2 Sat by Pulse 97 97 Oximetry 10/06/20 10/06/20 10/06/20 03:30 03:52 04:00 Temperature Pulse Rate 94 H 92 H 89 Pulse Rate [ From Monitor] Respiratory 16 15 Rate Blood Pressure 115/54 115/54 115/54 O2 Sat by Pulse 97 96 97 Oximetry 10/06/20 10/06/20 10/06/20 04:31 05:01 05:30 Temperature Pulse Rate 86 86 91 H Pulse Rate [ From Monitor] Respiratory 16 17 21 Rate Blood Pressure 107/56 111/56 117/47 O2 Sat by Pulse 96 96 91 Oximetry 10/06/20 10/06/20 10/06/20 06:00 06:30 07:00 Temperature Pulse Rate 88 97 H 91 H Pulse Rate [ From Monitor] Respiratory 17 20 16 Rate Blood Pressure 111/52 113/64 113/49 O2 Sat by Pulse 90 98 95 Oximetry 10/06/20 10/06/20 10/06/20 07:30 08:00 08:09 Temperature Pulse Rate 88 90 84 Pulse Rate [ 84 From Monitor] Respiratory 18 21 17 Rate Blood Pressure 113/56 104/48 O2 Sat by Pulse 95 96 95 Oximetry 10/06/20 10/06/20 10/06/20 08:10 08:30 09:01 Temperature Pulse Rate 101 H 87 104 H Pulse Rate [ From Monitor] Respiratory 28 H 14 28 H Rate Blood Pressure 128/63 104/48 128/63 O2 Sat by Pulse 96 96 95 Oximetry 10/06/20 10/06/20 10/06/20 09:31 10:01 10:12 Temperature Pulse Rate 101 H 97 H 97 H Pulse Rate [ From Monitor] Respiratory 29 H 27 H Rate Blood Pressure 121/58 123/51 123/51 O2 Sat by Pulse 97 97 Oximetry 10/06/20 10:13 Temperature Pulse Rate 97 H Pulse Rate [ From Monitor] Respiratory Rate Blood Pressure 123/51 O2 Sat by Pulse Oximetry Constitutional: no acute distress, other (middle aged obese female with normal respiratory effort at rest on MVS) Eyes: non-icteric ENT: oropharynx moist, other (ETT 23 cm JAH) Neck: supple, no lymphadenopathy, no JVD Effort: normal Ascultation: Bilateral: rhonchi Percussion: Bilateral: not dull Cardiovascular: regular rate and rhythm, other (S1,S2) Gastrointestinal: normoactive bowel sounds, soft, non-tender, non-distended Integumentary: normal Extremities: no cyanosis, no edema, pulses normal, no ischemia or petechiae Neurologic: pupils equal and round, unable to assess Psychiatric: other (unable to assess re: AMS) CBC and BMP: 10/08/20 04:22 10/08/20 04:22 ABG, PT/INR, D-dimer: ABG ABG pH 7.424 (7.320-7.450) 10/01/20 04:12 POC ABG pCO2 41.6 mmHg (32.0-48.0) 10/01/20 04:12 POC ABG pO2 73.0 mmHg (83-108) L 10/01/20 04:12 POC ABG HCO3 26.6 10/01/20 04:12 ABG O2 Saturation 94.3 (0-100) 10/01/20 04:12 PT/INR, D-dimer PT 13.7 Sec. (12.2-14.9) 09/25/20 18:15 INR 1.00 (0.87-1.13) 09/25/20 18:15 Abnormal lab findings: Abnormal Labs 09/25/20 09/25/20 09/25/20 17:19 17:21 18:15 WBC 13.8 H Hgb 9.9 L Hct MCV 76 L MCH 23 L RDW 17.9 H Lymph % (Auto) Clarke % (Auto) Lymph # (Auto) Clarke # (Auto) Seg Neutrophils % 78.6 H Seg Neutrophils # 10.8 H APTT Heparin Anti-Xa Level ABG pH POC ABG pCO2 26.2 L POC ABG pO2 554.5 H ABG Hemoglobin 9.0 L ABG Oxyhemoglobin 99.0 H ABG Sodium 134.5 L ABG Potassium ABG Chloride ABG Glucose 220 H Carboxyhemoglobin Sodium Potassium Chloride BUN Creatinine Glucose POC Glucose Lactic Acid Calcium Phosphorus AST ALT Troponin T C-Reactive Protein Albumin HDL Cholesterol Arterial Blood Glucose 220 H Arterial Blood Ionized Calcium 4.2 L Urine WBC (Auto) 14.0 H 09/25/20 09/25/20 09/25/20 18:15 18:15 18:15 WBC Hgb Hct MCV MCH RDW Lymph % (Auto) Clarke % (Auto) Lymph # (Auto) Clarke # (Auto) Seg Neutrophils % Seg Neutrophils # APTT 21.1 L Heparin Anti-Xa Level ABG pH POC ABG pCO2 POC ABG pO2 ABG Hemoglobin ABG Oxyhemoglobin ABG Sodium ABG Potassium ABG Chloride ABG Glucose Carboxyhemoglobin Sodium Potassium Chloride BUN Creatinine Glucose 113 H POC Glucose Lactic Acid 2.60 H* Calcium Phosphorus AST 162 H ALT 131 H Troponin T 0.096 H C-Reactive Protein Albumin HDL Cholesterol Arterial Blood Glucose Arterial Blood Ionized Calcium Urine WBC (Auto) 09/25/20 09/25/20 09/26/20 23:13 23:13 03:15 WBC Hgb Hct MCV MCH RDW Lymph % (Auto) Clarke % (Auto) Lymph # (Auto) Clarke # (Auto) Seg Neutrophils % Seg Neutrophils # APTT Heparin Anti-Xa Level ABG pH 7.451 H POC ABG pCO2 27.1 L POC ABG pO2 ABG Hemoglobin 10.4 L ABG Oxyhemoglobin ABG Sodium 135.2 L ABG Potassium ABG Chloride 108.0 H ABG Glucose 137 H Carboxyhemoglobin Sodium Potassium Chloride BUN Creatinine Glucose POC Glucose Lactic Acid 2.90 H* Calcium Phosphorus AST ALT Troponin T 0.170 H* D C-Reactive Protein Albumin HDL Cholesterol 60 H Arterial Blood Glucose 137 H Arterial Blood Ionized Calcium 4.2 L Urine WBC (Auto) 09/26/20 09/26/20 09/26/20 05:09 05:09 05:09 WBC 15.8 H Hgb 10.0 L Hct MCV 77 L MCH 24 L RDW 17.8 H Lymph % (Auto) 7.2 L Clarke % (Auto) Lymph # (Auto) 1.1 L Clarke # (Auto) 1.0 H Seg Neutrophils % 86.1 H Seg Neutrophils # 13.6 H APTT Heparin Anti-Xa Level ABG pH POC ABG pCO2 POC ABG pO2 ABG Hemoglobin ABG Oxyhemoglobin ABG Sodium ABG Potassium ABG Chloride ABG Glucose Carboxyhemoglobin Sodium Potassium Chloride BUN Creatinine Glucose 114 H POC Glucose Lactic Acid 2.40 H* Calcium 8.1 L Phosphorus AST 112 H ALT 103 H Troponin T C-Reactive Protein Albumin 3.8 L HDL Cholesterol Arterial Blood Glucose Arterial Blood Ionized Calcium Urine WBC (Auto) 09/26/20 09/27/20 09/27/20 15:45 03:33 04:41 WBC Hgb 9.0 L Hct 28.6 L MCV MCH RDW Lymph % (Auto) Clarke % (Auto) Lymph # (Auto) Clarke # (Auto) Seg Neutrophils % Seg Neutrophils # APTT Heparin Anti-Xa Level ABG pH POC ABG pCO2 POC ABG pO2 141.6 H ABG Hemoglobin 9.3 L ABG Oxyhemoglobin ABG Sodium ABG Potassium 3.2 L ABG Chloride 108.0 H ABG Glucose 118 H Carboxyhemoglobin Sodium Potassium Chloride BUN Creatinine Glucose POC Glucose Lactic Acid Calcium Phosphorus 2.20 L AST ALT Troponin T C-Reactive Protein 4.30 H Albumin HDL Cholesterol Arterial Blood Glucose 118 H Arterial Blood Ionized Calcium 4.2 L Urine WBC (Auto) 09/27/20 09/27/20 09/28/20 04:41 22:53 04:00 WBC Hgb Hct MCV MCH RDW Lymph % (Auto) Clarke % (Auto) Lymph # (Auto) Clarke # (Auto) Seg Neutrophils % Seg Neutrophils # APTT Heparin Anti-Xa Level 0.75 H ABG pH 7.467 H POC ABG pCO2 POC ABG pO2 78.9 L ABG Hemoglobin 9.8 L ABG Oxyhemoglobin ABG Sodium ABG Potassium ABG Chloride ABG Glucose 141 H Carboxyhemoglobin Sodium Potassium Chloride BUN Creatinine Glucose POC Glucose 109 H Lactic Acid Calcium Phosphorus AST ALT Troponin T C-Reactive Protein Albumin HDL Cholesterol Arterial Blood Glucose 141 H Arterial Blood Ionized Calcium Urine WBC (Auto) 09/28/20 09/28/20 09/28/20 05:02 05:02 17:42 WBC 11.9 H Hgb 9.3 L Hct 29.5 L MCV 76 L MCH 24 L RDW 19.4 H Lymph % (Auto) Clarke % (Auto) 11.1 H Lymph # (Auto) Clarke # (Auto) 1.3 H Seg Neutrophils % 72.5 H Seg Neutrophils # 8.6 H APTT Heparin Anti-Xa Level ABG pH POC ABG pCO2 POC ABG pO2 ABG Hemoglobin ABG Oxyhemoglobin ABG Sodium ABG Potassium ABG Chloride ABG Glucose Carboxyhemoglobin Sodium Potassium 3.4 L Chloride BUN Creatinine Glucose 126 H POC Glucose 69 L Lactic Acid Calcium Phosphorus AST 129 H ALT 60 H Troponin T C-Reactive Protein Albumin 3.7 L HDL Cholesterol Arterial Blood Glucose Arterial Blood Ionized Calcium Urine WBC (Auto) 09/29/20 09/29/20 09/29/20 04:00 05:53 08:39 WBC Hgb 10.0 L Hct MCV MCH RDW Lymph % (Auto) Clarke % (Auto) Lymph # (Auto) Clarke # (Auto) Seg Neutrophils % Seg Neutrophils # APTT Heparin Anti-Xa Level ABG pH POC ABG pCO2 POC ABG pO2 81.1 L ABG Hemoglobin 11.0 L ABG Oxyhemoglobin ABG Sodium ABG Potassium ABG Chloride 110.0 H ABG Glucose 129 H Carboxyhemoglobin Sodium Potassium Chloride BUN Creatinine Glucose POC Glucose 58 L Lactic Acid Calcium Phosphorus AST ALT Troponin T C-Reactive Protein Albumin HDL Cholesterol Arterial Blood Glucose 129 H Arterial Blood Ionized Calcium Urine WBC (Auto) 09/30/20 09/30/20 09/30/20 00:10 10:45 15:05 WBC 12.5 H Hgb 9.9 L Hct MCV 78 L MCH 24 L RDW 21.0 H Lymph % (Auto) Clarke % (Auto) 13.5 H Lymph # (Auto) Clarke # (Auto) 1.7 H Seg Neutrophils % Seg Neutrophils # 8.1 H APTT Heparin Anti-Xa Level ABG pH 7.469 H POC ABG pCO2 POC ABG pO2 ABG Hemoglobin 10.4 L ABG Oxyhemoglobin ABG Sodium 146.2 H ABG Potassium ABG Chloride 109.0 H ABG Glucose 155 H Carboxyhemoglobin Sodium Potassium Chloride BUN Creatinine Glucose POC Glucose 131 H Lactic Acid Calcium Phosphorus AST ALT Troponin T C-Reactive Protein Albumin HDL Cholesterol Arterial Blood Glucose 155 H Arterial Blood Ionized Calcium Urine WBC (Auto) 09/30/20 09/30/20 10/01/20 15:05 17:37 00:29 WBC Hgb Hct MCV MCH RDW Lymph % (Auto) Clarke % (Auto) Lymph # (Auto) Clarke # (Auto) Seg Neutrophils % Seg Neutrophils # APTT Heparin Anti-Xa Level ABG pH POC ABG pCO2 POC ABG pO2 ABG Hemoglobin ABG Oxyhemoglobin ABG Sodium ABG Potassium ABG Chloride ABG Glucose Carboxyhemoglobin Sodium Potassium Chloride 109.1 H BUN 18 H Creatinine 1.4 H Glucose 122 H POC Glucose 127 H 119 H Lactic Acid Calcium Phosphorus 2.00 L AST ALT Troponin T C-Reactive Protein Albumin HDL Cholesterol Arterial Blood Glucose Arterial Blood Ionized Calcium Urine WBC (Auto) 10/01/20 10/01/20 10/01/20 04:12 05:56 05:56 WBC 14.2 H Hgb 9.7 L Hct MCV 78 L MCH 23 L RDW 21.1 H Lymph % (Auto) Clarke % (Auto) Lymph # (Auto) Clarke # (Auto) Seg Neutrophils % Seg Neutrophils # APTT Heparin Anti-Xa Level ABG pH POC ABG pCO2 POC ABG pO2 73.0 L ABG Hemoglobin 10.0 L ABG Oxyhemoglobin 93.7 L ABG Sodium 146.4 H ABG Potassium ABG Chloride 110.0 H ABG Glucose 124 H Carboxyhemoglobin 0.3 L Sodium 147 H Potassium Chloride 109.6 H BUN Creatinine Glucose 109 H POC Glucose Lactic Acid Calcium Phosphorus AST ALT Troponin T C-Reactive Protein Albumin HDL Cholesterol Arterial Blood Glucose 124 H Arterial Blood Ionized Calcium Urine WBC (Auto) 10/01/20 10/01/20 10/02/20 19:21 23:17 05:27 WBC Hgb Hct MCV MCH RDW Lymph % (Auto) Clarke % (Auto) Lymph # (Auto) Clarke # (Auto) Seg Neutrophils % Seg Neutrophils # APTT Heparin Anti-Xa Level ABG pH POC ABG pCO2 POC ABG pO2 ABG Hemoglobin ABG Oxyhemoglobin ABG Sodium ABG Potassium ABG Chloride ABG Glucose Carboxyhemoglobin Sodium Potassium Chloride BUN Creatinine Glucose POC Glucose 126 H 160 H 121 H Lactic Acid Calcium Phosphorus AST ALT Troponin T C-Reactive Protein Albumin HDL Cholesterol Arterial Blood Glucose Arterial Blood Ionized Calcium Urine WBC (Auto) 10/02/20 10/02/20 10/02/20 06:48 06:48 11:51 WBC 14.2 H Hgb 9.6 L Hct MCV MCH 25 L RDW 21.7 H Lymph % (Auto) Clarke % (Auto) Lymph # (Auto) Clarke # (Auto) Seg Neutrophils % Seg Neutrophils # APTT Heparin Anti-Xa Level ABG pH POC ABG pCO2 POC ABG pO2 ABG Hemoglobin ABG Oxyhemoglobin ABG Sodium ABG Potassium ABG Chloride ABG Glucose Carboxyhemoglobin Sodium 147 H Potassium Chloride 110.4 H BUN Creatinine Glucose 134 H POC Glucose 121 H Lactic Acid Calcium Phosphorus 2.20 L AST ALT Troponin T C-Reactive Protein Albumin HDL Cholesterol Arterial Blood Glucose Arterial Blood Ionized Calcium Urine WBC (Auto) 10/02/20 10/03/20 10/03/20 17:19 00:35 07:24 WBC 12.9 H Hgb 8.9 L Hct 29.6 L MCV MCH 24 L RDW 21.9 H Lymph % (Auto) Clarke % (Auto) Lymph # (Auto) Clarke # (Auto) Seg Neutrophils % Seg Neutrophils # APTT Heparin Anti-Xa Level ABG pH POC ABG pCO2 POC ABG pO2 ABG Hemoglobin ABG Oxyhemoglobin ABG Sodium ABG Potassium ABG Chloride ABG Glucose Carboxyhemoglobin Sodium Potassium Chloride BUN Creatinine Glucose POC Glucose 107 H 112 H Lactic Acid Calcium Phosphorus AST ALT Troponin T C-Reactive Protein Albumin HDL Cholesterol Arterial Blood Glucose Arterial Blood Ionized Calcium Urine WBC (Auto) 10/03/20 10/03/20 10/03/20 07:24 17:27 20:19 WBC Hgb Hct MCV MCH RDW Lymph % (Auto) Clarke % (Auto) Lymph # (Auto) Clarke # (Auto) Seg Neutrophils % Seg Neutrophils # APTT Heparin Anti-Xa Level 0.18 L ABG pH POC ABG pCO2 POC ABG pO2 ABG Hemoglobin ABG Oxyhemoglobin ABG Sodium ABG Potassium ABG Chloride ABG Glucose Carboxyhemoglobin Sodium 147 H Potassium Chloride 110.4 H BUN Creatinine Glucose 128 H POC Glucose 136 H Lactic Acid Calcium Phosphorus AST ALT Troponin T C-Reactive Protein Albumin HDL Cholesterol Arterial Blood Glucose Arterial Blood Ionized Calcium Urine WBC (Auto) 10/03/20 10/04/20 10/04/20 23:34 04:07 06:12 WBC Hgb Hct MCV MCH RDW Lymph % (Auto) Clarke % (Auto) Lymph # (Auto) Clarke # (Auto) Seg Neutrophils % Seg Neutrophils # APTT Heparin Anti-Xa Level 0.25 L ABG pH POC ABG pCO2 POC ABG pO2 ABG Hemoglobin ABG Oxyhemoglobin ABG Sodium ABG Potassium ABG Chloride ABG Glucose Carboxyhemoglobin Sodium Potassium Chloride BUN Creatinine Glucose POC Glucose 119 H 128 H Lactic Acid Calcium Phosphorus AST ALT Troponin T C-Reactive Protein Albumin HDL Cholesterol Arterial Blood Glucose Arterial Blood Ionized Calcium Urine WBC (Auto) 10/04/20 10/04/20 10/05/20 11:38 17:39 00:17 WBC Hgb Hct MCV MCH RDW Lymph % (Auto) Clarke % (Auto) Lymph # (Auto) Clarke # (Auto) Seg Neutrophils % Seg Neutrophils # APTT Heparin Anti-Xa Level ABG pH POC ABG pCO2 POC ABG pO2 ABG Hemoglobin ABG Oxyhemoglobin ABG Sodium ABG Potassium ABG Chloride ABG Glucose Carboxyhemoglobin Sodium Potassium Chloride BUN Creatinine Glucose POC Glucose 129 H 136 H 125 H Lactic Acid Calcium Phosphorus AST ALT Troponin T C-Reactive Protein Albumin HDL Cholesterol Arterial Blood Glucose Arterial Blood Ionized Calcium Urine WBC (Auto) 10/05/20 10/05/20 10/05/20 04:17 04:17 05:31 WBC 13.0 H Hgb 9.1 L Hct 29.5 L MCV MCH 25 L RDW 22.2 H Lymph % (Auto) Clarke % (Auto) Lymph # (Auto) Clarke # (Auto) Seg Neutrophils % Seg Neutrophils # APTT Heparin Anti-Xa Level ABG pH POC ABG pCO2 POC ABG pO2 ABG Hemoglobin ABG Oxyhemoglobin ABG Sodium ABG Potassium ABG Chloride ABG Glucose Carboxyhemoglobin Sodium Potassium Chloride BUN Creatinine Glucose 148 H POC Glucose 160 H Lactic Acid Calcium Phosphorus AST ALT Troponin T C-Reactive Protein Albumin HDL Cholesterol Arterial Blood Glucose Arterial Blood Ionized Calcium Urine WBC (Auto) 10/05/20 10/05/20 10/05/20 12:09 17:33 23:30 WBC Hgb Hct MCV MCH RDW Lymph % (Auto) Clarke % (Auto) Lymph # (Auto) Clarke # (Auto) Seg Neutrophils % Seg Neutrophils # APTT Heparin Anti-Xa Level ABG pH POC ABG pCO2 POC ABG pO2 ABG Hemoglobin ABG Oxyhemoglobin ABG Sodium ABG Potassium ABG Chloride ABG Glucose Carboxyhemoglobin Sodium Potassium Chloride BUN Creatinine Glucose POC Glucose 148 H 135 H 142 H Lactic Acid Calcium Phosphorus AST ALT Troponin T C-Reactive Protein Albumin HDL Cholesterol Arterial Blood Glucose Arterial Blood Ionized Calcium Urine WBC (Auto) 10/06/20 10/06/20 04:37 05:35 WBC Hgb Hct MCV MCH RDW Lymph % (Auto) Clarke % (Auto) Lymph # (Auto) Clarke # (Auto) Seg Neutrophils % Seg Neutrophils # APTT Heparin Anti-Xa Level ABG pH POC ABG pCO2 POC ABG pO2 ABG Hemoglobin ABG Oxyhemoglobin ABG Sodium ABG Potassium ABG Chloride ABG Glucose Carboxyhemoglobin Sodium 136 L Potassium Chloride BUN Creatinine Glucose 184 H POC Glucose 151 H Lactic Acid Calcium Phosphorus AST 66 H ALT Troponin T C-Reactive Protein Albumin 3.3 L HDL Cholesterol Arterial Blood Glucose Arterial Blood Ionized Calcium Urine WBC (Auto) Chest x-ray: image reviewed Allied health notes reviewed: RT
--- NOTE | 2020-10-06 12:33 | Progress Note ---
Assessment and Plan Assessment and plan: This is a 45-year-old female with OHS and GERD who presented s/p cardiac arrest S/p cardiac arrest Sepsis Global anoxic brain injury Small acute lacunar infarct in the right lesia Acute hypoxic respiratory failure NSTEMI Leukocytosis Pneumonia Seizure disorder Obesity GERD Fevers of unknown origin -CCM, neurology, cardiology, PT consulted, patient recommendations -09/25 CTA chest shows no CT evidence of pulmonary embolism, consolidative changes within both dependent lungs may be due to aspiration -09/25 CT head shows no evidence of acute abnormality, no evidence of acute ischemic injury, hemorrhage, mass affect -09/25 echocardiogram shows left ventricular mildly dilated, left ventricle systolic function severely decreased, left ventricular ejection fraction is 70 decreased, severe global hypokinesis of the left ventricle, LVEF 20 to 25% -09/26 CXR shows slight interval worsening of bilateral parenchymal disease also be secondary to pneumonia possibly aspiration pneumonia -09/27 CXR shows much improved appearance of the chest with improving bilateral pulmonary opacities -09/27 EEG shows significant abnormal record with low voltage 2-400 noted throughout this recording, admixed with low voltage fast beta activity noted frontally, findings suggestive of possible cortical dysfunction and/or ence phalopathy and/or post cardiac arrest, possibility of post ictal stage cannot be totally excluded -10/02 MRI showed diffuse cerebral restricted diffusion consistent with global anoxic brain injury, no associated hemorrhage or herniation and additional small acute lacunar infarct in the right lesia -10/01 BLE Doppler ultrasound negative for DVT -TF, ssi, accucheck q6 -s/p Heparin drip -Aspirin, BB, ACEi -Keppra -Seizure/aspiration precautions -Ativan as needed -As needed labetalol for SBP>160 -Trend CBC, BMP Currently on cefepime, repeat chest x-ray without any abnormalities, will obtain pro-Kareem, if pro-Kareem is negative, DC antibiotics DVT/GI prophylaxis: Pepcid, heparin subq, SCDs to bilateral directions while in bed Disposition: ICU, awaiting family decision about goals of care, spoke with family, they are willing to take patient home with trach Lines: PIV, DHT The high probability of a clinically significant, sudden or life threatening deterioration of the [cardiac, pulmonary, renal, neuro] system(s) required my full and direct attention, intervention and personal management. The aggregate critical care time was [35] minutes. This time is in addition to time spent performing reported procedures but includes the following: [x] Data Review and interpretation [x] Patient assessment and monitoring of vital signs [x] Documentation [x] Medication orders and management Total Time Spent with Patient (Minutes): 35 minutes History Interval history: 45-year-old female with obesity hypoventilation syndrome and GERD who presented to the emergency department on 09/30 s/p cardiac arrest via EMS. Per EMS staff jer arora were notified for shortness of breath and upon arrival patient was found to be in distress and subsequently went into cardiac arrest and she was treated in accordance to ACLS protocol and intubated in the field and transported to [facility]. Evaluation in the emergency department upon arrival to the emergency department patient was found to have persistent hypoxic respiratory failure and was maintained on ventilator support. Work-up revealed sepsis, pneumonia, seizure disorder, metabolic acidosis as well as NSTEMI. Cardiology, neurology, CCM were consulted. 09/26/2020: Patient remains unresponsive, intubated on ventilatory support. 09/27/2020; patient remains unresponsive, intubated on ventilatory support Follow neurology evaluation and recommendations Very poor prognosis, I spoke with patient's aunt Ms. Debora Minor 09/26/2020 About patient's condition , tests and reports and very poor prognosis. She verbalized understanding. I discussed the CODE STATUS Full code at this point 09/28/2020 S/p cardiac arrest outside the facility Intubated and unresponsive We will discuss CODE STATUS again 09/29/2020 S/p cardiac arrest Intubated and unresponsive Will request ethics consult and family meeting again regarding the prognosis and outcome 09/30/20 Discussed with family They will decide about DNR--amenable 10/01: Patient has persistent leukocytosis and hyperchloremia. Patient now has hypernatremia and renal function has improved to CR/BUN 1.1/15 from 1.418. Patient has hypophosphatemia which was repleted yesterday and we will obtain a.m. labs. Patient has MRI brain pending. Family updated by neurology over the phone and CUFF K[employer]ITTER at bedside. Patient niece was at bedside today and she will defer goals of care decision after MRI results. EEG findings were explained. According to her the patient was in found to be unresponsive by family and was given byst robyn CPR before arrival of EMS. 10/02: Patient received MRI brain today which showed diffuse cerebral restricted diffusion consistent with global anoxic brain injury, no associated hemorrhage or herniation and additional small acute lacunar infarct in the right paracentral lesia. Patient was hypotensive today and received a bolus of fluids with recovery. At the time examination patient on a CPAP trial of 09/26 and on 25% FiO2. Today we removed the patient's Grace catheter, discontinued bowel regimen and ask RN to follow-up on bilateral lower extremity Doppler ultrasounds. Patient noted to be hypernatremic and free water flushes were increased. 10/03: Cardiology will follow the patient peripherally given poor prognosis, Dr. Alvarado and has spoken to the family regarding prognosis today. Given hypotension patient will receive lower doses of blood pressure medicine and per social worker psychiatric request a referral to [facility]. Patient will be started on maintenance IV fluid. Patient slight hyperchloremia and hypernatremia persists. Patient received treatment phosphorus and we will recheck level in the a.m. Her leukocytosis improved. H/H is slowly drifting down. She remains on heparin drip. 10/04: Patient bilateral Doppler ultrasound are negative and heparin drip has been stopped. [facility] referral made by CM which was denied. Family is aware. No acute events reported overnight. CPAP trial at the time my examination. 10/05: Today patient is no longer hypernatremic so free water flushes were resume at the rate nutrition as ordered. Decrease in Cozaar today patient's T-max 100.7 which was responsive to Tylenol. At the time examination patient is on assist control tidal volume 450, rate of 12, PEEP of 6 and 25% FiO2. Patient will be tried on a CPAP trial today. 10/06/2020: No family at the bedside, spoke with critical care, patient was openi ng her eyes but continues to be encephalopathic. Patient on cefepime, will get pro-Kareem, if negative, DC antibiotics. Continues to be on CPAP and intubated. Hospitalist Physical - Physical exam Narrative exam: General appearance: Obese, well-nourished EENT: Pupils without PERRLA, no eye movement, no corneal reflex Neck: Present: supple, normal ROM Respiratory: Intubated, bilateral CTA, negative: rales, rhonchi, wheezing Cardiovascular: Regular rate/rhythm, Normal S1 & S2. No gallop, rub Extremities: no ischemia, No edema, normal temperature, normal color, Full ROM Abdominal: soft, no tenderness, non-distended, normal bowel sounds Integumentary: Present: clear, warm, dry no wounds, no erythema noted Neurologic: Unconscious, no response with verbal cues or noxious stimulus - Constitutional Vitals: Temp Pulse Resp BP Pulse Ox 100.2 F H 91 H 28 H 118/55 96 10/06/20 03:21 10/06/20 11:56 10/06/20 11:56 10/06/20 11:56 10/06/20 11:56 HEART Score - HEART Score Troponin: Troponin T < 0.010 ng/mL (0.00-0.029) 10/02/20 06:48 Results - Labs CBC & Chem 7: 10/05/20 04:17 10/06/20 04:37 Labs: Laboratory Last Values WBC 13.0 K/mm3 (4.5-11.0) H 10/05/20 04:17 RBC 3.70 M/mm3 (3.65-5.03) 10/05/20 04:17 Hgb 9.1 gm/dl (10.1-14.3) L 10/05/20 04:17 Hct 29.5 % (30.3-42.9) L 10/05/20 04:17 MCV 80 fl (79-97) 10/05/20 04:17 MCH 25 pg (28-32) L 10/05/20 04:17 MCHC 31 % (30-34) 10/05/20 04:17 RDW 22.2 % (13.2-15.2) H 10/05/20 04:17 Plt Count 434 K/mm3 (140-440) 10/05/20 04:17 Lymph % (Auto) 20.1 % (13.4-35.0) 09/30/20 15:05 Bland % (Auto) 13.5 % (0.0-7.3) H 09/30/20 15:05 Eos % (Auto) 0.4 % (0.0-4.3) 09/30/20 15:05 Baso % (Auto) 1.0 % (0.0-1.8) 09/30/20 15:05 Lymph # (Auto) 2.5 K/mm3 (1.2-5.4) 09/30/20 15:05 Bland # (Auto) 1.7 K/mm3 (0.0-0.8) H 09/30/20 15:05 Eos # (Auto) 0.0 K/mm3 (0.0-0.4) 09/30/20 15:05 Baso # (Auto) 0.1 K/mm3 (0.0-0.1) 09/30/20 15:05 Seg Neutrophils % 65.0 % (40.0-70.0) 09/30/20 15:05 Seg Neutrophils # 8.1 K/mm3 (1.8-7.7) H 09/30/20 15:05 PT 13.7 Sec. (12.2-14.9) 09/25/20 18:15 INR 1.00 (0.87-1.13) 09/25/20 18:15 APTT 21.1 Sec. (24.2-36.6) L 09/25/20 18:15 Heparin Anti-Xa Level 0.25 U.I./ml (0.3-0.7) L 10/04/20 04:07 ABG pH 7.424 (7.320-7.450) 10/01/20 04:12 POC ABG pCO2 41.6 mmHg (32.0-48.0) 10/01/20 04:12 POC ABG pO2 73.0 mmHg (83-108) L 10/01/20 04:12 POC ABG HCO3 26.6 10/01/20 04:12 ABG O2 Saturation 94.3 (0-100) 10/01/20 04:12 POC ABG Base Excess 2.0 10/01/20 04:12 ABG Hemoglobin 10.0 (12.0-17.5) L 10/01/20 04:12 ABG Oxyhemoglobin 93.7 (94-98) L 10/01/20 04:12 ABG Methemoglobin 0.3 (0.0-1.5) 10/01/20 04:12 ABG Sodium 146.4 mmol/L (136.0-145.0) H 10/01/20 04:12 ABG Potassium 3.8 mmol/L (3.40-4.50) 10/01/20 04:12 ABG Chloride 110.0 mmol/L (98-107) H 10/01/20 04:12 ABG Glucose 124 mg/dL (65-95) H 10/01/20 04:12 Carboxyhemoglobin 0.3 (0.5-1.5) L 10/01/20 04:12 FiO2 % 25.0 10/01/20 04:12 Sodium 136 mmol/L (137-145) L 10/06/20 04:37 Potassium 4.5 mmol/L (3.6-5.0) 10/06/20 04:37 Chloride 101.7 mmol/L (98-107) 10/06/20 04:37 Carbon Dioxide 26 mmol/L (22-30) 10/06/20 04:37 Anion Gap 13 mmol/L 10/06/20 04:37 BUN 16 mg/dL (7-17) 10/06/20 04:37 Creatinine 0.6 mg/dL (0.6-1.2) 10/06/20 04:37 Estimated GFR > 60 ml/min 10/06/20 04:37 BUN/Creatinine Ratio 27 % 10/06/20 04:37 Glucose 184 mg/dL (65-100) H 10/06/20 04:37 POC Glucose 163 mg/dL (70-105) H 10/06/20 10:55 Lactic Acid 1.00 mmol/L (0.7-2.0) 09/27/20 04:41 Calcium 9.3 mg/dL (8.4-10.2) 10/06/20 04:37 Phosphorus 2.70 mg/dL (2.5-4.5) 10/04/20 04:07 Magnesium 2.20 mg/dL (1.7-2.3) 10/02/20 06:48 Total Bilirubin 0.20 mg/dL (0.1-1.2) 10/06/20 04:37 AST 66 units/L (5-40) H 10/06/20 04:37 ALT 47 units/L (7-56) 10/06/20 04:37 Alkaline Phosphatase 111 units/L (35-129) 10/06/20 04:37 Troponin T < 0.010 ng/mL (0.00-0.029) 10/02/20 06:48 C-Reactive Protein 4.30 mg/dL (0.00-1.30) H 09/26/20 15:45 Total Protein 7.4 g/dL (6.3-8.2) 10/06/20 04:37 Albumin 3.3 g/dL (3.9-5) L 10/06/20 04:37 Albumin/Globulin Ratio 0.8 % 10/06/20 04:37 Triglycerides 40 mg/dL (2-149) 09/25/20 23:13 Cholesterol 132 mg/dL (50-199) 09/25/20 23:13 LDL Cholesterol Direct 66 mg/dL (50-130) 09/25/20 23:13 HDL Cholesterol 60 mg/dL (40-59) H 09/25/20 23:13 Cholesterol/HDL Ratio 2.20 % 09/25/20 23:13 Procalcitonin 0.31 ng/mL (<0.15) 09/26/20 15:45 Arterial Blood Glucose 124 mg/dL (65-95) H 10/01/20 04:12 Arterial Blood Ionized Calcium 4.8 mg/dL (4.6-5.3) 10/01/20 04:12 Urine Color Yellow (Yellow) 09/25/20 17:19 Urine Turbidity Cloudy (Clear) 09/25/20 17:19 Urine pH 7.0 (5.0-7.0) 09/25/20 17:19 Ur Specific [place] 1.012 (1.003-1.030) 09/25/20 17:19 Urine Protein >500 mg/dL (Negative) 09/25/20 17:19 Urine Glucose (UA) 50 mg/dL (Negative) 09/25/20 17:19 Urine Ketones Neg mg/dL (Negative) 09/25/20 17:19 Urine Blood Sm (Negative) 09/25/20 17:19 Urine Nitrite Neg (Negative) 09/25/20 17:19 Urine Bilirubin Neg (Negative) 09/25/20 17:19 Urine Urobilinogen < 2.0 mg/dL (<2.0) 09/25/20 17:19 Ur Leukocyte Esterase Neg (Negative) 09/25/20 17:19 Urine WBC (Auto) 14.0 /HPF (0.0-6.0) H 09/25/20 17:19 Urine RBC (Auto) 101.0 /HPF (0.0-6.0) 09/25/20 17:19 U Epithel Cells (Auto) 1.0 /HPF (0-13.0) 09/25/20 17:19 Urine Bacteria (Auto) 1+ /HPF (Negative) 09/25/20 17:19 Urine HCG, Qual Negative (Negative) 09/25/20 17:19 Urine Opiates Screen Presumptive negative 09/25/20 17:19 Urine Methadone Screen Presumptive negative 09/25/20 17:19 Ur Barbiturates Screen Presumptive negative 09/25/20 17:19 Ur Phencyclidine Scrn Presumptive negative 09/25/20 17:19 Ur Amphetamines Screen Presumptive negative 09/25/20 17:19 U Benzodiazepines Scrn Presumptive negative 09/25/20 17:19 Urine Cocaine Screen Presumptive negative 09/25/20 17:19 U Marijuana (THC) Screen Presumptive negative 09/25/20 17:19 Drugs of Abuse Note Disclamer 09/25/20 17:19 Coronavirus (PCR) Negative (Negative) 09/26/20 Unknown Blood Type B POSITIVE 09/25/20 19:00 Antibody Screen Negative 09/25/20 19:00 Grace/IV: Voiding Method External Female Catheter Active Medications - Current Medications Current Medications: Generic Name Dose Route Start Last Admin Trade Name Freq PRN Reason Stop Dose Admin Acetaminophen 650 mg 09/25/20 18:45 Acetaminophen 650 Mg Rect Supp MN Q6H PRN Pain MILD(1-3)/Fever >100.5/RUIZ Acetaminophen 650 mg 09/25/20 18:49 10/05/20 00:28 Acetaminophen 325 Mg Tab PO 650 mg Q6H PRN Administration Pain, Mild (1-3) Albuterol 2.5 mg 09/25/20 18:45 Albuterol 2.5 Mg/3 Ml Nebu IH Q3HRT PRN Shortness Of Breath Lipase/Protease/Amylase 1 each 09/27/20 13:01 Lipase 10,500/Protease 25,000/Amylase 43,750 (Units) Dr Davis FEEDTUBE PRN PRN For Clogged Feeding Tube Aspirin 81 mg 10/01/20 10:00 10/06/20 10:12 Aspirin 81 Mg Tab Chew PO 81 mg QDAY RAMESH Administration Carvedilol 12.5 mg 10/02/20 22:00 10/06/20 10:13 Carvedilol 12.5 Mg Tab PO 12.5 mg BID RAMESH Administration Famotidine 20 mg 09/30/20 10:00 10/06/20 10:12 Famotidine 20 Mg Tab PO 20 mg BID RAMESH Administration Heparin Sodium (Porcine) 5,000 unit 10/04/20 14:00 10/06/20 05:51 Heparin 5,000 Unit/1 Ml Vial SUB-Q 5,000 unit Q8HR RAMESH Administration Hydromorphone HCl 0.25 mg 09/25/20 18:49 09/30/20 14:05 Hydromorphone 1 Mg/1 Ml Inj IV 0.25 mg Q4H PRN Administration Pain, Moderate (4-6) Hydrophilic Ointment 1 applic 09/25/20 16:52 Lip Therapy Vaseline TP Q2HR PRN Dry Lips Propofol 1,000 mg in 100 mls @ 3.201 mls/hr 09/26/20 14:00 09/28/20 19:01 Diprivan 10 Mg/Ml IV 0 mcg/kg/min TITR RAMESH 0 mls/hr Titration Protocol 5 MCG/KG/MIN Cefepime HCl 2 gm in 100 mls @ 200 mls/hr 10/05/20 15:00 10/06/20 05:51 Cefepime/Ns 2 Gm/100 Ml IV 200 mls/hr Q8HR RAMESH Administration Protocol Labetalol HCl 10 mg 09/27/20 12:51 09/30/20 14:02 Labetalol 20 Mg/4 Ml Inj IV 10 mg Q4H PRN Administration Blood Pressure Levetiracetam 750 mg 09/30/20 22:00 10/06/20 10:13 Levetiracetam 500 Mg/5 Ml Oral Liqd PO 750 mg BID RAMESH Administration Lorazepam 2 mg 09/26/20 13:45 Lorazepam 2 Mg/Ml Vial IV Q4H PRN Seizures Losartan Potassium 25 mg 10/05/20 10:00 10/06/20 10:12 Losartan 25 Mg Tab PO 25 mg QDAY RAMESH Administration Metoclopramide HCl 10 mg 09/30/20 16:33 09/30/20 20:20 Metoclopramide 10 Mg/2 Ml Inj IV 10 mg Q6H PRN Administration Nausea And Vomiting Modafinil 200 mg 10/06/20 11:00 Modafinil 100 Mg Tab PO QAM RAMESH Multi-Ingred Cream/Lotion/Oil/Oint 1 applic 09/25/20 16:52 09/28/20 22:02 Mineral Oil/Petrolatum, White Ophth Oint 3.5 Gm OU 1 applic Q4HR PRN Administration Dry Eye(s) Ondansetron HCl 4 mg 09/30/20 01:25 09/30/20 10:01 Ondansetron 4 Mg/2 Ml Inj IV 4 mg Q8H PRN Administration Nausea And Vomiting Scopolamine 1 each 10/01/20 16:00 10/02/20 09:43 Scopolamine Transdermal Patch 72 Hr TD 1 each Q72HR RAMESH Administration Simple Syrup 15 ml 09/27/20 13:01 Simple Syrup 15 Ml FEEDTUBE PRN PRN Hypoglycemia Simple Syrup 30 ml 09/27/20 13:01 09/29/20 06:13 Simple Syrup 15 Ml FEEDTUBE 30 ml PRN PRN Administration Hypoglycemia Sodium Bicarbonate 325 mg 09/27/20 13:01 Sodium Bicarbonate 325 Mg Tab FEEDTUBE PRN PRN For Clogged Feeding Tube Sodium Chloride 10 ml 09/25/20 22:00 10/06/20 10:14 Sodium Chloride 0.9% 10 Ml Flush Syringe IV 10 ml BID RAMESH Administration Sodium Chloride 10 ml 09/25/20 18:45 Sodium Chloride 0.9% 10 Ml Flush Syringe IV PRN PRN LINE FLUSH Nutrition/Malnutrition Assess - Dietary Evaluation Nutrition/Malnutrition Findings: Nutrition Notes Start: 09/27/20 12:48 Freq: Status: Active Protocol: Document 10/03/20 13:47 ARMANDO (Rec: 10/03/20 13:48 ARMANDO [id number]) Nutrition Notes Initial or Follow up Brief Note Subjective/Other Information Change F/U date to 10/07. Nutrition Intervention Follow-Up By: 10/07/20 Additional Comments F/U: stable TF, vent status
[2020-10-07] MEDS: CEFEPIME/NS 2 GM/100 ML 2 GM/100 ML BAG IV SCH (07:59)
[2020-10-07] MEDS: HEPARIN 5,000 UNIT/1 ML VIAL SUB-Q SCH ×3 (08:00→22:10)
[2020-10-07] MEDS: MODAFINIL 100 MG TAB PO SCH (10:03)
[2020-10-07] MEDS: levETIRAcetam 500 MG/5 ML ORAL LIQD PO SCH ×2 (10:03→22:09)
[2020-10-07] MEDS: LOSARTAN 25 MG TAB PO SCH (10:03)
[2020-10-07] MEDS: ASPIRIN 81 MG TAB CHEW PO SCH (10:03)
[2020-10-07] MEDS: carvediloL 12.5 MG TAB PO SCH ×2 (10:04→22:08)
[2020-10-07] MEDS: FAMOTIDINE 20 MG TAB PO SCH ×2 (10:04→22:09)
--- NOTE | 2020-10-07 10:34 | Progress Note ---
<KATIE BATISTA A - Last Filed: 10/07/20 15:46> Assessment and Plan Assessment and plan: 45-year-old female with obesity hypoventilation syndrome and GERD who presented to the emergency department on 09/30 s/p cardiac arrest via EMS. Per EMS staff they were notified for shortness of breath and upon arrival patient was found to be in distress and subsequently went into cardiac arrest and she was treated in accordance to ACLS protocol and intubated in the field and transported to [facility]. Evaluation in the emergency department upon arrival to the emergency department patient was found to have persistent hypoxic respiratory failure and was maintained on ventilator support. Work-up revealed sepsis, pneumonia, seizure disorder, metabolic acidosis as well as NSTEMI. Cardiology, neurology, [facility] were consulted. 09/27/2020; patient remains unresponsive, intubated on ventilatory support Follow neurology evaluation and recommendations 10/01: Patient has persistent leukocytosis and hyperchloremia. Patient now has hypernatremia and renal function has improved to CR/BUN 1.1/ from 1.08/04. Patient has hypophosphatemia which was repleted yesterday and we will obtain a.m. labs. Patient has MRI brain pending. Family updated by neurology over the phone and CARDIAC NURSE SPECIALIST at bedside. Patient niece was at bedside today and she will defer goals of care decision after MRI results. EEG findings were explained. According to her the patient was in found to be unresponsive by family and was given bystander CPR before arrival of EMS. 10/02: Patient received MRI brain today which showed diffuse cerebral restricted diffusion consistent with global anoxic brain injury, no associated hemorrhage or herniation and additional small acute lacunar infarct in the right paracentral lesia. 10/03: Cardiology will follow the patient peripherally given poor prognosis, Dr. Alvarado and has spoken to the family regarding prognosis today. Given hypotension patient will receive lower doses of blood pressure medicine and per tar pot worker request a referral to [facility]. 10/04: Patient bilateral Doppler ultrasound are negative and heparin drip has been stopped. [facility] center referral made by CM which was denied. Family is aware. No acute events reported overnight. 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 neuro etiology trend temp and WBC curve last cultures on 09/25 no antibiotics at this time Endo obese avoid hypoglycemia currently on no SSI- continue to monitor for need with inc in TF rate Disposition Plan: LTC v home with family Total Time Spent with Patient (Minutes): 60 History Interval history: 45-year-old female with obesity hypoventilation syndrome and GERD who presented to the emergency department on 09/30 s/p cardiac arrest via EMS. Per EMS staff they were notified for shortness of breath and upon arrival patient was found to be in distress and subsequently went into cardiac arrest and she was treated in accordance to ACLS protocol and intubated in the field and transported to [facility]. Evaluation in the emergency department upon arrival to the emergency department patient was found to have persistent hypoxic respiratory failure and was maintained on ventilator support. Work-up revealed sepsis, pneumonia, seizure disorder, metabolic acidosis as well as NSTEMI. Cardiology, neurology, CCM were consulted. no acute events overnight Hospitalist Physical - Constitutional Vitals: Temp Pulse Resp BP Pulse Ox 99.4 F 112 H 24 137/74 98 10/07/20 08:00 10/07/20 10:04 10/07/20 10:01 10/07/20 10:04 10/07/20 10:01 General appearance: Present: no acute distress, well-nourished, other (not responsive ) - EENT ENT: clear oral mucosa - Neck Neck: Present: supple, normal ROM - Respiratory Respiratory effort: normal - Cardiovascular Rhythm: regular Heart Sounds: Present: S1 & S2 Peripheral Pulses: within normal limits - Abdominal General gastrointestinal: soft, non-tender - Integumentary Integumentary: Present: clear, warm, dry - Allied Health Allied health notes reviewed: nursing, case management HEART Score - HEART Score History: Slightly suspicious EKG: Normal Age: 45-65 Risk factors: No known risk factors Troponin: Troponin T < 0.010 ng/mL (0.00-0.029) 10/02/20 06:48 Troponin: < normal limit HEART Score: 1 - Critical Actions Critical Actions: 0-3 pts:0.9-1.7%risk of adverse cardiac event.Candidate for discharge Results - Labs CBC & Chem 7: 10/05/20 04:17 10/06/20 04:37 Labs: Laboratory Last Values WBC 13.0 K/mm3 (4.5-11.0) H 10/05/20 04:17 RBC 3.70 M/mm3 (3.65-5.03) 10/05/20 04:17 Hgb 9.1 gm/dl (10.1-14.3) L 10/05/20 04:17 Hct 29.5 % (30.3-42.9) L 10/05/20 04:17 MCV 80 fl (79-97) 10/05/20 04:17 MCH 25 pg (28-32) L 10/05/20 04:17 MCHC 31 % (30-34) 10/05/20 04:17 RDW 22.2 % (13.2-15.2) H 10/05/20 04:17 Plt Count 434 K/mm3 (140-440) 10/05/20 04:17 Lymph % (Auto) 20.1 % (13.4-35.0) 09/30/20 15:05 Grimes % (Auto) 13.5 % (0.0-7.3) H 09/30/20 15:05 Eos % (Auto) 0.4 % (0.0-4.3) 09/30/20 15:05 Baso % (Auto) 1.0 % (0.0-1.8) 09/30/20 15:05 Lymph # (Auto) 2.5 K/mm3 (1.2-5.4) 09/30/20 15:05 Grimes # (Auto) 1.7 K/mm3 (0.0-0.8) H 09/30/20 15:05 Eos # (Auto) 0.0 K/mm3 (0.0-0.4) 09/30/20 15:05 Baso # (Auto) 0.1 K/mm3 (0.0-0.1) 09/30/20 15:05 Seg Neutrophils % 65.0 % (40.0-70.0) 09/30/20 15:05 Seg Neutrophils # 8.1 K/mm3 (1.8-7.7) H 09/30/20 15:05 PT 13.7 Sec. (12.2-14.9) 09/25/20 18:15 INR 1.00 (0.87-1.13) 09/25/20 18:15 APTT 21.1 Sec. (24.2-36.6) L 09/25/20 18:15 Heparin Anti-Xa Level 0.25 U.I./ml (0.3-0.7) L 10/04/20 04:07 ABG pH 7.424 (7.320-7.450) 10/01/20 04:12 POC ABG pCO2 41.6 mmHg (32.0-48.0) 10/01/20 04:12 POC ABG pO2 73.0 mmHg (83-108) L 10/01/20 04:12 POC ABG HCO3 26.6 10/01/20 04:12 ABG O2 Saturation 94.3 (0-100) 10/01/20 04:12 POC ABG Base Excess 2.0 10/01/20 04:12 ABG Hemoglobin 10.0 (12.0-17.5) L 10/01/20 04:12 ABG Oxyhemoglobin 93.7 (94-98) L 10/01/20 04:12 ABG Methemoglobin 0.3 (0.0-1.5) 10/01/20 04:12 ABG Sodium 146.4 mmol/L (136.0-145.0) H 10/01/20 04:12 ABG Potassium 3.8 mmol/L (3.40-4.50) 10/01/20 04:12 ABG Chloride 110.0 mmol/L (98-107) H 10/01/20 04:12 ABG Glucose 124 mg/dL (65-95) H 10/01/20 04:12 Carboxyhemoglobin 0.3 (0.5-1.5) L 10/01/20 04:12 FiO2 % 25.0 10/01/20 04:12 Sodium 136 mmol/L (137-145) L 10/06/20 04:37 Potassium 4.5 mmol/L (3.6-5.0) 10/06/20 04:37 Chloride 101.7 mmol/L (98-107) 10/06/20 04:37 Carbon Dioxide 26 mmol/L (22-30) 10/06/20 04:37 Anion Gap 13 mmol/L 10/06/20 04:37 BUN 16 mg/dL (7-17) 10/06/20 04:37 Creatinine 0.6 mg/dL (0.6-1.2) 10/06/20 04:37 Estimated GFR > 60 ml/min 10/06/20 04:37 BUN/Creatinine Ratio 27 % 10/06/20 04:37 Glucose 184 mg/dL (65-100) H 10/06/20 04:37 POC Glucose 194 mg/dL (70-105) H 10/07/20 05:24 Lactic Acid 1.00 mmol/L (0.7-2.0) 09/27/20 04:41 Calcium 9.3 mg/dL (8.4-10.2) 10/06/20 04:37 Phosphorus 2.70 mg/dL (2.5-4.5) 10/04/20 04:07 Magnesium 2.20 mg/dL (1.7-2.3) 10/02/20 06:48 Total Bilirubin 0.20 mg/dL (0.1-1.2) 10/06/20 04:37 AST 66 units/L (5-40) H 10/06/20 04:37 ALT 47 units/L (7-56) 10/06/20 04:37 Alkaline Phosphatase 111 units/L (35-129) 10/06/20 04:37 Troponin T < 0.010 ng/mL (0.00-0.029) 10/02/20 06:48 C-Reactive Protein 4.30 mg/dL (0.00-1.30) H 09/26/20 15:45 Total Protein 7.4 g/dL (6.3-8.2) 10/06/20 04:37 Albumin 3.3 g/dL (3.9-5) L 10/06/20 04:37 Albumin/Globulin Ratio 0.8 % 10/06/20 04:37 Triglycerides 40 mg/dL (2-149) 09/25/20 23:13 Cholesterol 132 mg/dL (50-199) 09/25/20 23:13 LDL Cholesterol Direct 66 mg/dL (50-130) 09/25/20 23:13 HDL Cholesterol 60 mg/dL (40-59) H 09/25/20 23:13 Cholesterol/HDL Ratio 2.20 % 09/25/20 23:13 Procalcitonin < 0.05 ng/mL (<0.15) 10/06/20 10:58 Arterial Blood Glucose 124 mg/dL (65-95) H 10/01/20 04:12 Arterial Blood Ionized Calcium 4.8 mg/dL (4.6-5.3) 10/01/20 04:12 Urine Color Yellow (Yellow) 09/25/20 17:19 Urine Turbidity Cloudy (Clear) 09/25/20 17:19 Urine pH 7.0 (5.0-7.0) 09/25/20 17:19 Ur Specific Mead 1.012 (1.003-1.030) 09/25/20 17:19 Urine Protein >500 mg/dL (Negative) 09/25/20 17:19 Urine Glucose (UA) 50 mg/dL (Negative) 09/25/20 17:19 Urine Ketones Neg mg/dL (Negative) 09/25/20 17:19 Urine Blood Sm (Negative) 09/25/20 17:19 Urine Nitrite Neg (Negative) 09/25/20 17:19 Urine Bilirubin Neg (Negative) 09/25/20 17:19 Urine Urobilinogen < 2.0 mg/dL (<2.0) 09/25/20 17:19 Ur Leukocyte Esterase Neg (Negative) 09/25/20 17:19 Urine WBC (Auto) 14.0 /HPF (0.0-6.0) H 09/25/20 17:19 Urine RBC (Auto) 101.0 /HPF (0.0-6.0) 09/25/20 17:19 U Epithel Cells (Auto) 1.0 /HPF (0-13.0) 09/25/20 17:19 Urine Bacteria (Auto) 1+ /HPF (Negative) 09/25/20 17:19 Urine HCG, Qual Negative (Negative) 09/25/20 17:19 Urine Opiates Screen Presumptive negative 09/25/20 17:19 Urine Methadone Screen Presumptive negative 09/25/20 17:19 Ur Barbiturates Screen Presumptive negative 09/25/20 17:19 Ur Phencyclidine Scrn Presumptive negative 09/25/20 17:19 Ur Amphetamines Screen Presumptive negative 09/25/20 17:19 U Benzodiazepines Scrn Presumptive negative 09/25/20 17:19 Urine Cocaine Screen Presumptive negative 09/25/20 17:19 U Marijuana (THC) Screen Presumptive negative 09/25/20 17:19 Drugs of Abuse Note Disclamer 09/25/20 17:19 Coronavirus (PCR) Negative (Negative) 09/26/20 Unknown Blood Type B POSITIVE 09/25/20 19:00 Antibody Screen Negative 09/25/20 19:00 - Imaging and Cardiology MRI - abdomen: report reviewed [place]/IV: Voiding Method External Female Catheter Active Medications - Current Medications Current Medications: Generic Name Dose Route Start Last Admin Trade Name Freq PRN Reason Stop Dose Admin Acetaminophen 650 mg 09/25/20 18:45 Acetaminophen 650 Mg Rect Supp DC Q6H PRN Pain MILD(1-3)/Fever >100.5/RUIZ Acetaminophen 650 mg 09/25/20 18:49 10/05/20 00:28 Acetaminophen 325 Mg Tab PO 650 mg Q6H PRN Administration Pain, Mild (1-3) Albuterol 2.5 mg 09/25/20 18:45 Albuterol 2.5 Mg/3 Ml Nebu IH Q3HRT PRN Shortness Of Breath Lipase/Protease/Amylase 1 each 09/27/20 13:01 Lipase 10,500/Protease 25,000/Amylase 43,750 (Units) Dr Davis FEEDTUBE PRN PRN For Clogged Feeding Tube Aspirin 81 mg 10/01/20 10:00 10/07/20 10:03 Aspirin 81 Mg Tab Chew PO 81 mg QDAY RAMESH Administration Carvedilol 12.5 mg 10/02/20 22:00 10/07/20 10:04 Carvedilol 12.5 Mg Tab PO 12.5 mg BID RAMESH Administration Famotidine 20 mg 09/30/20 10:00 10/07/20 10:04 Famotidine 20 Mg Tab PO 20 mg BID RAMESH Administration Heparin Sodium (Porcine) 5,000 unit 10/04/20 14:00 10/07/20 08:00 Heparin 5,000 Unit/1 Ml Vial SUB-Q 5,000 unit Q8HR RAMESH Administration Hydromorphone HCl 0.25 mg 09/25/20 18:49 09/30/20 14:05 Hydromorphone 1 Mg/1 Ml Inj IV 0.25 mg Q4H PRN Administration Pain, Moderate (4-6) Hydrophilic Ointment 1 applic 09/25/20 16:52 Lip Therapy Vaseline TP Q2HR PRN Dry Lips Labetalol HCl 10 mg 09/27/20 12:51 09/30/20 14:02 Labetalol 20 Mg/4 Ml Inj IV 10 mg Q4H PRN Administration Blood Pressure Levetiracetam 750 mg 09/30/20 22:00 10/07/20 10:03 Levetiracetam 500 Mg/5 Ml Oral Liqd PO 750 mg BID RAMESH Administration Lorazepam 2 mg 09/26/20 13:45 Lorazepam 2 Mg/Ml Vial IV Q4H PRN Seizures Losartan Potassium 25 mg 10/05/20 10:00 10/07/20 10:03 Losartan 25 Mg Tab PO 25 mg QDAY RAMESH Administration Metoclopramide HCl 10 mg 09/30/20 16:33 09/30/20 20:20 Metoclopramide 10 Mg/2 Ml Inj IV 10 mg Q6H PRN Administration Nausea And Vomiting Modafinil 200 mg 10/06/20 11:00 10/07/20 10:03 Modafinil 100 Mg Tab PO 200 mg QAM RAMESH Administration Multi-Ingred Cream/Lotion/Oil/Oint 1 applic 09/25/20 16:52 09/28/20 22:02 Mineral Oil/Petrolatum, White Ophth Oint 3.5 Gm OU 1 applic Q4HR PRN Administration Dry Eye(s) Ondansetron HCl 4 mg 09/30/20 01:25 09/30/20 10:01 Ondansetron 4 Mg/2 Ml Inj IV 4 mg Q8H PRN Administration Nausea And Vomiting Scopolamine 1 each 10/01/20 16:00 10/02/20 09:43 Scopolamine Transdermal Patch 72 Hr TD 1 each Q72HR RAMESH Administration Simple Syrup 15 ml 09/27/20 13:01 Simple Syrup 15 Ml FEEDTUBE PRN PRN Hypoglycemia Simple Syrup 30 ml 09/27/20 13:01 09/29/20 06:13 Simple Syrup 15 Ml FEEDTUBE 30 ml PRN PRN Administration Hypoglycemia Sodium Bicarbonate 325 mg 09/27/20 13:01 Sodium Bicarbonate 325 Mg Tab FEEDTUBE PRN PRN For Clogged Feeding Tube Sodium Chloride 10 ml 09/25/20 22:00 10/07/20 10:04 Sodium Chloride 0.9% 10 Ml Flush Syringe IV 10 ml BID RAMESH Administration Sodium Chloride 10 ml 09/25/20 18:45 Sodium Chloride 0.9% 10 Ml Flush Syringe IV PRN PRN LINE FLUSH Nutrition/Malnutrition Assess - Dietary Evaluation Nutrition/Malnutrition Findings: Nutrition Notes Start: 09/27/20 12:48 Freq: Status: Active Protocol: Document 10/03/20 13:47 ARMANDO (Rec: 10/03/20 13:48 [email or web address] [email or web address]) Nutrition Notes Initial or Follow up Brief Note Subjective/Other Information Change F/U date to 10/07. Nutrition Intervention Follow-Up By: 10/07/20 Additional Comments F/U: stable TF, vent status - Malnutrition Assessment Minimum of two criteria: Yes - Attestation Statement I have reviewed and agreed w/ Malnutrition eval & tx plan: Yes <MAX FERMIN - Last Filed: 10/07/20 16:43> Assessment and Plan Assessment and plan: Agree assessment and plan as outlined by nurse practitioner as above, patient seen and examined, chart review completed, plan discussed with nurse practitioner and nursing at the bedside. Patient continues to be intubated. Discussed with family, general surgery seen the patient, plan for trach and PEG sometime this week. After which patient will either be transferred to institution or be transferred home. Hospitalist Physical - Constitutional Vitals: Temp Pulse Resp BP Pulse Ox 99.5 F 104 H 27 H 105/63 100 10/07/20 12:00 10/07/20 15:17 10/07/20 15:17 10/07/20 15:17 10/07/20 15:17 HEART Score - HEART Score Troponin: Troponin T < 0.010 ng/mL (0.00-0.029) 10/02/20 06:48 Results - Labs CBC & Chem 7: 10/05/20 04:17 10/06/20 04:37 Labs: Laboratory Last Values WBC 13.0 K/mm3 (4.5-11.0) H 10/05/20 04:17 RBC 3.70 M/mm3 (3.65-5.03) 10/05/20 04:17 Hgb 9.1 gm/dl (10.1-14.3) L 10/05/20 04:17 Hct 29.5 % (30.3-42.9) L 10/05/20 04:17 MCV 80 fl (79-97) 10/05/20 04:17 MCH 25 pg (28-32) L 10/05/20 04:17 MCHC 31 % (30-34) 10/05/20 04:17 RDW 22.2 % (13.2-15.2) H 10/05/20 04:17 Plt Count 434 K/mm3 (140-440) 10/05/20 04:17 Lymph % (Auto) 20.1 % (13.4-35.0) 09/30/20 15:05 Grimes % (Auto) 13.5 % (0.0-7.3) H 09/30/20 15:05 Eos % (Auto) 0.4 % (0.0-4.3) 09/30/20 15:05 Baso % (Auto) 1.0 % (0.0-1.8) 09/30/20 15:05 Lymph # (Auto) 2.5 K/mm3 (1.2-5.4) 09/30/20 15:05 Grimes # (Auto) 1.7 K/mm3 (0.0-0.8) H 09/30/20 15:05 Eos # (Auto) 0.0 K/mm3 (0.0-0.4) 09/30/20 15:05 Baso # (Auto) 0.1 K/mm3 (0.0-0.1) 09/30/20 15:05 Seg Neutrophils % 65.0 % (40.0-70.0) 09/30/20 15:05 Seg Neutrophils # 8.1 K/mm3 (1.8-7.7) H 09/30/20 15:05 PT 13.7 Sec. (12.2-14.9) 09/25/20 18:15 INR 1.00 (0.87-1.13) 09/25/20 18:15 APTT 21.1 Sec. (24.2-36.6) L 09/25/20 18:15 Heparin Anti-Xa Level 0.25 U.I./ml (0.3-0.7) L 10/04/20 04:07 ABG pH 7.424 (7.320-7.450) 10/01/20 04:12 POC ABG pCO2 41.6 mmHg (32.0-48.0) 10/01/20 04:12 POC ABG pO2 73.0 mmHg (83-108) L 10/01/20 04:12 POC ABG HCO3 26.6 10/01/20 04:12 ABG O2 Saturation 94.3 (0-100) 10/01/20 04:12 POC ABG Base Excess 2.0 10/01/20 04:12 ABG Hemoglobin 10.0 (12.0-17.5) L 10/01/20 04:12 ABG Oxyhemoglobin 93.7 (94-98) L 10/01/20 04:12 ABG Methemoglobin 0.3 (0.0-1.5) 10/01/20 04:12 ABG Sodium 146.4 mmol/L (136.0-145.0) H 10/01/20 04:12 ABG Potassium 3.8 mmol/L (3.40-4.50) 10/01/20 04:12 ABG Chloride 110.0 mmol/L (98-107) H 10/01/20 04:12 ABG Glucose 124 mg/dL (65-95) H 10/01/20 04:12 Carboxyhemoglobin 0.3 (0.5-1.5) L 10/01/20 04:12 FiO2 % 25.0 10/01/20 04:12 Sodium 136 mmol/L (137-145) L 10/06/20 04:37 Potassium 4.5 mmol/L (3.6-5.0) 10/06/20 04:37 Chloride 101.7 mmol/L (98-107) 10/06/20 04:37 Carbon Dioxide 26 mmol/L (22-30) 10/06/20 04:37 Anion Gap 13 mmol/L 10/06/20 04:37 BUN 16 mg/dL (7-17) 10/06/20 04:37 Creatinine 0.6 mg/dL (0.6-1.2) 10/06/20 04:37 Estimated GFR > 60 ml/min 10/06/20 04:37 BUN/Creatinine Ratio 27 % 10/06/20 04:37 Glucose 184 mg/dL (65-100) H 10/06/20 04:37 POC Glucose 203 mg/dL (70-105) H 10/07/20 11:48 Lactic Acid 1.00 mmol/L (0.7-2.0) 09/27/20 04:41 Calcium 9.3 mg/dL (8.4-10.2) 10/06/20 04:37 Phosphorus 2.70 mg/dL (2.5-4.5) 10/04/20 04:07 Magnesium 2.20 mg/dL (1.7-2.3) 10/02/20 06:48 Total Bilirubin 0.20 mg/dL (0.1-1.2) 10/06/20 04:37 AST 66 units/L (5-40) H 10/06/20 04:37 ALT 47 units/L (7-56) 10/06/20 04:37 Alkaline Phosphatase 111 units/L (35-129) 10/06/20 04:37 Troponin T < 0.010 ng/mL (0.00-0.029) 10/02/20 06:48 C-Reactive Protein 4.30 mg/dL (0.00-1.30) H 09/26/20 15:45 Total Protein 7.4 g/dL (6.3-8.2) 10/06/20 04:37 Albumin 3.3 g/dL (3.9-5) L 10/06/20 04:37 Albumin/Globulin Ratio 0.8 % 10/06/20 04:37 Triglycerides 40 mg/dL (2-149) 09/25/20 23:13 Cholesterol 132 mg/dL (50-199) 09/25/20 23:13 LDL Cholesterol Direct 66 mg/dL (50-130) 09/25/20 23:13 HDL Cholesterol 60 mg/dL (40-59) H 09/25/20 23:13 Cholesterol/HDL Ratio 2.20 % 09/25/20 23:13 Procalcitonin < 0.05 ng/mL (<0.15) 10/06/20 10:58 Arterial Blood Glucose 124 mg/dL (65-95) H 10/01/20 04:12 Arterial Blood Ionized Calcium 4.8 mg/dL (4.6-5.3) 10/01/20 04:12 Urine Color Yellow (Yellow) 09/25/20 17:19 Urine Turbidity Cloudy (Clear) 09/25/20 17:19 Urine pH 7.0 (5.0-7.0) 09/25/20 17:19 Ur Specific Mead 1.012 (1.003-1.030) 09/25/20 17:19 Urine Protein >500 mg/dL (Negative) 09/25/20 17:19 Urine Glucose (UA) 50 mg/dL (Negative) 09/25/20 17:19 Urine Ketones Neg mg/dL (Negative) 09/25/20 17:19 Urine Blood Sm (Negative) 09/25/20 17:19 Urine Nitrite Neg (Negative) 09/25/20 17:19 Urine Bilirubin Neg (Negative) 09/25/20 17:19 Urine Urobilinogen < 2.0 mg/dL (<2.0) 09/25/20 17:19 Ur Leukocyte Esterase Neg (Negative) 09/25/20 17:19 Urine WBC (Auto) 14.0 /HPF (0.0-6.0) H 09/25/20 17:19 Urine RBC (Auto) 101.0 /HPF (0.0-6.0) 09/25/20 17:19 U Epithel Cells (Auto) 1.0 /HPF (0-13.0) 09/25/20 17:19 Urine Bacteria (Auto) 1+ /HPF (Negative) 09/25/20 17:19 Urine HCG, Qual Negative (Negative) 09/25/20 17:19 Urine Opiates Screen Presumptive negative 09/25/20 17:19 Urine Methadone Screen Presumptive negative 09/25/20 17:19 Ur Barbiturates Screen Presumptive negative 09/25/20 17:19 Ur Phencyclidine Scrn Presumptive negative 09/25/20 17:19 Ur Amphetamines Screen Presumptive negative 09/25/20 17:19 U Benzodiazepines Scrn Presumptive negative 09/25/20 17:19 Urine Cocaine Screen Presumptive negative 09/25/20 17:19 U Marijuana (THC) Screen Presumptive negative 09/25/20 17:19 Drugs of Abuse Note Disclamer 09/25/20 17:19 Coronavirus (PCR) Negative (Negative) 09/26/20 Unknown Blood Type B POSITIVE 09/25/20 19:00 Antibody Screen Negative 09/25/20 19:00 [place]/IV: Voiding Method External Female Catheter Active Medications - Current Medications Current Medications: Generic Name Dose Route Start Last Admin Trade Name Freq PRN Reason Stop Dose Admin Acetaminophen 650 mg 09/25/20 18:45 Acetaminophen 650 Mg Rect Supp DC Q6H PRN Pain MILD(1-3)/Fever >100.5/RUIZ Albuterol 2.5 mg 09/25/20 18:45 Albuterol 2.5 Mg/3 Ml Nebu IH Q3HRT PRN Shortness Of Breath Lipase/Protease/Amylase 1 each 09/27/20 13:01 Lipase 10,500/Protease 25,000/Amylase 43,750 (Units) Dr Davis FEEDTUBE PRN PRN For Clogged Feeding Tube Aspirin 81 mg 10/01/20 10:00 10/07/20 10:03 Aspirin 81 Mg Tab Chew PO 81 mg QDAY RAMESH Administration Carvedilol 12.5 mg 10/02/20 22:00 10/07/20 10:04 Carvedilol 12.5 Mg Tab PO 12.5 mg BID RAMESH Administration Famotidine 20 mg 09/30/20 10:00 10/07/20 10:04 Famotidine 20 Mg Tab PO 20 mg BID RAMESH Administration Heparin Sodium (Porcine) 5,000 unit 10/04/20 14:00 10/07/20 14:18 Heparin 5,000 Unit/1 Ml Vial SUB-Q 5,000 unit Q8HR RAMESH Administration Hydromorphone HCl 0.25 mg 09/25/20 18:49 09/30/20 14:05 Hydromorphone 1 Mg/1 Ml Inj IV 0.25 mg Q4H PRN Administration Pain, Moderate (4-6) Hydrophilic Ointment 1 applic 09/25/20 16:52 Lip Therapy Vaseline TP Q2HR PRN Dry Lips Labetalol HCl 10 mg 09/27/20 12:51 09/30/20 14:02 Labetalol 20 Mg/4 Ml Inj IV 10 mg Q4H PRN Administration Blood Pressure Levetiracetam 750 mg 09/30/20 22:00 10/07/20 10:03 Levetiracetam 500 Mg/5 Ml Oral Liqd PO 750 mg BID RAMESH Administration Lorazepam 2 mg 09/26/20 13:45 Lorazepam 2 Mg/Ml Vial IV Q4H PRN Seizures Losartan Potassium 25 mg 10/05/20 10:00 10/07/20 10:03 Losartan 25 Mg Tab PO 25 mg QDAY RAMESH Administration Metoclopramide HCl 10 mg 09/30/20 16:33 09/30/20 20:20 Metoclopramide 10 Mg/2 Ml Inj IV 10 mg Q6H PRN Administration Nausea And Vomiting Modafinil 200 mg 10/06/20 11:00 10/07/20 10:03 Modafinil 100 Mg Tab PO 200 mg QAM RAMESH Administration Multi-Ingred Cream/Lotion/Oil/Oint 1 applic 09/25/20 16:52 09/28/20 22:02 Mineral Oil/Petrolatum, White Ophth Oint 3.5 Gm OU 1 applic Q4HR PRN Administration Dry Eye(s) Ondansetron HCl 4 mg 09/30/20 01:25 09/30/20 10:01 Ondansetron 4 Mg/2 Ml Inj IV 4 mg Q8H PRN Administration Nausea And Vomiting Scopolamine 1 each 10/01/20 16:00 10/02/20 09:43 Scopolamine Transdermal Patch 72 Hr TD 1 each Q72HR RAMESH Administration Senna 17.2 mg 10/07/20 22:00 Sennosides 8.6 Mg Tab PO QHS RAMESH Simple Syrup 15 ml 09/27/20 13:01 Simple Syrup 15 Ml FEEDTUBE PRN PRN Hypoglycemia Simple Syrup 30 ml 09/27/20 13:01 09/29/20 06:13 Simple Syrup 15 Ml FEEDTUBE 30 ml PRN PRN Administration Hypoglycemia Sodium Bicarbonate 325 mg 09/27/20 13:01 Sodium Bicarbonate 325 Mg Tab FEEDTUBE PRN PRN For Clogged Feeding Tube Sodium Chloride 10 ml 09/25/20 22:00 10/07/20 10:04 Sodium Chloride 0.9% 10 Ml Flush Syringe IV 10 ml BID RAMESH Administration Sodium Chloride 10 ml 09/25/20 18:45 Sodium Chloride 0.9% 10 Ml Flush Syringe IV PRN PRN LINE FLUSH Nutrition/Malnutrition Assess - Dietary Evaluation Nutrition/Malnutrition Findings: Nutrition Notes Start: 09/27/20 12:48 Freq: Status: Active Protocol: Document 10/07/20 13:30 ARMANDO (Rec: 10/07/20 13:36 ARMANDO [id number]) Nutrition Notes Initial or Follow up Reassessment Current Diagnosis Respiratory Failure Other Pertinent Diagnosis s/p cardiac arrest, anoxic brain injury Current Diet TF - Vital AF 1.2 at 55ml/hr Labs/Tests Reviewed Pertinent Medications Reviewed Height 5 ft 5 in Weight 106.7 kg [place] Body Weight (kg) 56.81 BMI 39.1 Weight Status Obese Subjective/Other Information Spoke with RN via phone at 13: 28; pt tolerating TF at goal rate. Pt remains on vent support; general surgery consulted for trach and PEG placement. Percent of energy/protein needs met: 99% energy 87% pro Burn Absent Trauma Absent #1 Nutrition Diagnosis Inadequate oral intake Diagnosis Progress(for reassessment Continues documentation) Is patient on ventilator? Yes Is Patient Ambulatory and/or Out of Bed No REE-([facility]-confined to bed) 2051.588 Kcal/Kg value to use for calculation 15 Approximate Energy Requirements Using 1601 kcal/Kg Calculation Used for Recommendations Kcal/kg Additional Notes Pro needs >2g/kg IBW: >114g/ day Fluid needs 1ml/kcal Nutrition Intervention Nutrition Support: Continue Vital AF 1.2 at 55ml/ hr with 85ml water flush q4h. Kcal 1,584 Protein (gm) 99 Fluid (mL) 1,071 Goal #1 TF tolerance Goal #2 TF to meet at least 75% energy and pro needs Follow-Up By: 10/14/20 Additional Comments F/U: stable TF, vent status, wt, trach/PEG placement
--- NOTE | 2020-10-07 10:50 | Progress Note ---
Assessment and Plan Cardiac arrest with return of spontaneous circulation. Acute respiratory failure, on mechanical ventilatory support. Acute toxic metabolic encephalopathy. Possible anoxic encephalopathy. Obesity. History of obesity hypoventilation syndrome. Leukocytosis. Likely aspiration pneumonia, bilateral. Anemia that is microcytic. Lactic acidosis. Elevated serum transaminases. Non-ST elevation myocardial infarction Hypernatremia, resolved Unfortunately mental status changes persist, will occasionally open her eyes on verbal and tactile stimulation Discuss with her aunt re trach and PEG Continue with cardioprotective measures Stop Cefepime, procalcitonin levels are unremarkable. Monitor temperature curve and trend WCC Continue with Modafinil for neurostimulation and monitor response and for side effects Discussed in MDR - Continue to monitor hemodynamics closely while she is on heart failure measures - VTE prophylaxis dosing- dopplers are negative, no evidence of pulmonary embolism - continue free water flushes. Monitor sodium levels - continue to titrate supplemental oxygen to keep SpO2 89-92% - VAP bundle addressed, aspiration precautions HOB >40 - continue lung protective strategies - continue bronchodilators with pulmonary hygiene per RT - wean per pulmonary driven protocols otherwise - continue Daily SBT assessment as tolerated - continue accuchecks with glycemic control per SSI (While critically ill target blood glucose of 140-180 mg/dL; avoid hypoglycemia) - sedation prn for target RASS 0 to -1 - avoid nephrotoxins, renally dose all medications - continue to avoid benzodiazepines, reduce the possibility of delirium - prn analgesia per CPOT score - Maintenance of sleep-wake cycle, avoid delirium - continue enteral nutritional support at goal rate as tolerated - Stress ulcer prophylaxis - PT/OT/ROM exercises - continue mobility, off loading , frequent turning per facility protocols for pressure ulcer prevention - continue other care per attending / other consultants - discharge planning ongoing concurrently CONDITION: CRITICAL PROGNOSIS: GUARDED CODE STATUS: FULL CODE The high probability of a clinically significant, sudden or life-threatening deterioration of the [respiratory, cardiovascular & neurologic] system(s) required my full and direct attention, intervention and personal management. The aggregate critical care time was [31] minutes without overlap. Time includes spent on; [x] Data Review and interpretation [x] Patient assessment and monitoring of vital signs [x] Documentation [x] Medication orders and management Subjective Date of service: 10/07/20 Principal diagnosis: Cardiac arrest; Ac. respiratory failure; Anoxic encephalopathy; PNA; NSTEMI Interval history: Patient is seen today for: Cardiac arrest with ROSC; Acute respiratory failure; Anoxic encephalopathy; Obesity; OHS; Aspiration pneumonia; NSTEMI Seen and examined at bedside; 24hour events reviewed; nursing and respiratory care staff consulted; no adverse overnight events reported to me; resting in bed; remains on MVS,tolerating SBTs. Mental status changes persist. Objective Vital Signs - 12hr 10/06/20 10/06/20 10/06/20 23:00 23:23 23:30 Temperature Pulse Rate 95 H 92 H 91 H Pulse Rate [ From Monitor] Respiratory 20 19 Rate Blood Pressure 108/61 108/61 107/63 O2 Sat by Pulse 95 96 95 Oximetry 10/07/20 10/07/20 10/07/20 00:00 00:30 01:00 Temperature 99.3 F Pulse Rate 91 H 94 H 97 H Pulse Rate [ 91 H From Monitor] Respiratory 20 16 19 Rate Blood Pressure 102/60 113/57 123/60 O2 Sat by Pulse 97 97 97 Oximetry 10/07/20 10/07/20 10/07/20 01:30 02:00 02:30 Temperature Pulse Rate 100 H 96 H 98 H Pulse Rate [ From Monitor] Respiratory 19 19 20 Rate Blood Pressure 120/64 126/61 120/60 O2 Sat by Pulse 97 96 96 Oximetry 10/07/20 10/07/20 10/07/20 03:00 03:17 03:30 Temperature Pulse Rate 101 H 99 H 99 H Pulse Rate [ From Monitor] Respiratory 21 17 Rate Blood Pressure 125/63 125/63 118/65 O2 Sat by Pulse 95 96 95 Oximetry 10/07/20 10/07/20 10/07/20 03:38 04:00 04:30 Temperature 98.6 F Pulse Rate 104 H 101 H Pulse Rate [ 96 H From Monitor] Respiratory 20 17 Rate Blood Pressure 122/68 113/65 O2 Sat by Pulse 96 96 Oximetry 10/07/20 10/07/20 10/07/20 05:00 05:30 06:00 Temperature Pulse Rate 100 H 100 H 102 H Pulse Rate [ From Monitor] Respiratory 17 19 19 Rate Blood Pressure 122/68 118/65 127/68 O2 Sat by Pulse 96 95 96 Oximetry 10/07/20 10/07/20 10/07/20 06:30 07:00 07:30 Temperature Pulse Rate 100 H 104 H 104 H Pulse Rate [ From Monitor] Respiratory 16 20 18 Rate Blood Pressure 131/67 121/65 126/69 O2 Sat by Pulse 96 96 96 Oximetry 10/07/20 10/07/20 10/07/20 08:00 08:13 08:30 Temperature 99.4 F Pulse Rate 107 H 104 H 108 H Pulse Rate [ 106 H From Monitor] Respiratory 19 22 27 H Rate Blood Pressure 121/72 121/72 124/67 O2 Sat by Pulse 95 95 94 Oximetry 10/07/20 10/07/20 10/07/20 09:00 09:30 10:01 Temperature Pulse Rate 106 H 105 H 114 H Pulse Rate [ From Monitor] Respiratory 26 H 26 H 24 Rate Blood Pressure 122/74 122/76 137/74 O2 Sat by Pulse 96 97 98 Oximetry 10/07/20 10/07/20 10:03 10:04 Temperature Pulse Rate 112 H 112 H Pulse Rate [ From Monitor] Respiratory Rate Blood Pressure 137/74 137/74 O2 Sat by Pulse Oximetry Constitutional: no acute distress, other (middle aged obese female with normal respiratory effort at rest on MVS) Eyes: non-icteric ENT: oropharynx moist, other (ETT 23 cm JAH) Neck: supple, no lymphadenopathy, no JVD Effort: normal Ascultation: Bilateral: rhonchi Percussion: Bilateral: not dull Cardiovascular: regular rate and rhythm, other (S1,S2) Gastrointestinal: normoactive bowel sounds, soft, non-tender, non-distended Integumentary: normal Extremities: no cyanosis, no edema, pulses normal, no ischemia or petechiae Neurologic: pupils equal and round, unable to assess Psychiatric: other (unable to assess re: AMS) CBC and BMP: 10/08/20 04:22 10/08/20 04:22 ABG, PT/INR, D-dimer: ABG ABG pH 7.424 (7.320-7.450) 10/01/20 04:12 POC ABG pCO2 41.6 mmHg (32.0-48.0) 10/01/20 04:12 POC ABG pO2 73.0 mmHg (83-108) L 10/01/20 04:12 POC ABG HCO3 26.6 10/01/20 04:12 ABG O2 Saturation 94.3 (0-100) 10/01/20 04:12 PT/INR, D-dimer PT 13.7 Sec. (12.2-14.9) 09/25/20 18:15 INR 1.00 (0.87-1.13) 09/25/20 18:15 Abnormal lab findings: Abnormal Labs 09/25/20 09/25/20 09/25/20 17:19 17:21 18:15 WBC 13.8 H Hgb 9.9 L Hct MCV 76 L MCH 23 L RDW 17.9 H Lymph % (Auto) Ferry % (Auto) Lymph # (Auto) [place]erry # (Auto) Seg Neutrophils % 78.6 H Seg Neutrophils # 10.8 H APTT Heparin Anti-Xa Level ABG pH POC ABG pCO2 26.2 L POC ABG pO2 554.5 H ABG Hemoglobin 9.0 L ABG Oxyhemoglobin 99.0 H ABG Sodium 134.5 L ABG Potassium ABG Chloride ABG Glucose 220 H Carboxyhemoglobin Sodium Potassium Chloride BUN Creatinine Glucose POC Glucose Lactic Acid Calcium Phosphorus AST ALT Troponin T C-Reactive Protein Albumin HDL Cholesterol Arterial Blood Glucose 220 H Arterial Blood Ionized Calcium 4.2 L Urine WBC (Auto) 14.0 H 09/25/20 09/25/20 09/25/20 18:15 18:15 18:15 WBC Hgb Hct MCV MCH RDW Lymph % (Auto) Ferry % (Auto) Lymph # (Auto) [place]erry # (Auto) Seg Neutrophils % Seg Neutrophils # APTT 21.1 L Heparin Anti-Xa Level ABG pH POC ABG pCO2 POC ABG pO2 ABG Hemoglobin ABG Oxyhemoglobin ABG Sodium ABG Potassium ABG Chloride ABG Glucose Carboxyhemoglobin Sodium Potassium Chloride BUN Creatinine Glucose 113 H POC Glucose Lactic Acid 2.60 H* Calcium Phosphorus AST 162 H ALT 131 H Troponin T 0.096 H C-Reactive Protein Albumin HDL Cholesterol Arterial Blood Glucose Arterial Blood Ionized Calcium Urine WBC (Auto) 09/25/20 09/25/20 09/26/20 23:13 23:13 03:15 WBC Hgb Hct MCV MCH RDW Lymph % (Auto) Ferry % (Auto) Lymph # (Auto) [place] # (Auto) Seg Neutrophils % Seg Neutrophils # APTT Heparin Anti-Xa Level ABG pH 7.451 H POC ABG pCO2 27.1 L POC ABG pO2 ABG Hemoglobin 10.4 L ABG Oxyhemoglobin ABG Sodium 135.2 L ABG Potassium ABG Chloride 108.0 H ABG Glucose 137 H Carboxyhemoglobin Sodium Potassium Chloride BUN Creatinine Glucose POC Glucose Lactic Acid 2.90 H* Calcium Phosphorus AST ALT Troponin T 0.170 H* D C-Reactive Protein Albumin HDL Cholesterol 60 H Arterial Blood Glucose 137 H Arterial Blood Ionized Calcium 4.2 L Urine WBC (Auto) 09/26/20 09/26/20 09/26/20 05:09 05:09 05:09 WBC 15.8 H Hgb 10.0 L Hct MCV 77 L MCH 24 L RDW 17.8 H Lymph % (Auto) 7.2 L Ferry % (Auto) Lymph # (Auto) 1.1 L [place]erry # (Auto) 1.0 H Seg Neutrophils % 86.1 H Seg Neutrophils # 13.6 H APTT Heparin Anti-Xa Level ABG pH POC ABG pCO2 POC ABG pO2 ABG Hemoglobin ABG Oxyhemoglobin ABG Sodium ABG Potassium ABG Chloride ABG Glucose Carboxyhemoglobin Sodium Potassium Chloride BUN Creatinine Glucose 114 H POC Glucose Lactic Acid 2.40 H* Calcium 8.1 L Phosphorus AST 112 H ALT 103 H Troponin T C-Reactive Protein Albumin 3.8 L HDL Cholesterol Arterial Blood Glucose Arterial Blood Ionized Calcium Urine WBC (Auto) 09/26/20 09/27/20 09/27/20 15:45 03:33 04:41 WBC Hgb 9.0 L Hct 28.6 L MCV MCH RDW Lymph % (Auto) Ferry % (Auto) Lymph # (Auto) [place] # (Auto) Seg Neutrophils % Seg Neutrophils # APTT Heparin Anti-Xa Level ABG pH POC ABG pCO2 POC ABG pO2 141.6 H ABG Hemoglobin 9.3 L ABG Oxyhemoglobin ABG Sodium ABG Potassium 3.2 L ABG Chloride 108.0 H ABG Glucose 118 H Carboxyhemoglobin Sodium Potassium Chloride BUN Creatinine Glucose POC Glucose Lactic Acid Calcium Phosphorus 2.20 L AST ALT Troponin T C-Reactive Protein 4.30 H Albumin HDL Cholesterol Arterial Blood Glucose 118 H Arterial Blood Ionized Calcium 4.2 L Urine WBC (Auto) 09/27/20 09/27/20 09/28/20 04:41 22:53 04:00 WBC Hgb Hct MCV MCH RDW Lymph % (Auto) Ferry % (Auto) Lymph # (Auto) [place] # (Auto) Seg Neutrophils % Seg Neutrophils # APTT Heparin Anti-Xa Level 0.75 H ABG pH 7.467 H POC ABG pCO2 POC ABG pO2 78.9 L ABG Hemoglobin 9.8 L ABG Oxyhemoglobin ABG Sodium ABG Potassium ABG Chloride ABG Glucose 141 H Carboxyhemoglobin Sodium Potassium Chloride BUN Creatinine Glucose POC Glucose 109 H Lactic Acid Calcium Phosphorus AST ALT Troponin T C-Reactive Protein Albumin HDL Cholesterol Arterial Blood Glucose 141 H Arterial Blood Ionized Calcium Urine WBC (Auto) 09/28/20 09/28/20 09/28/20 05:02 05:02 17:42 WBC 11.9 H Hgb 9.3 L Hct 29.5 L MCV 76 L MCH 24 L RDW 19.4 H Lymph % (Auto) Ferry % (Auto) 11.1 H Lymph # (Auto) [place] # (Auto) 1.3 H Seg Neutrophils % 72.5 H Seg Neutrophils # 8.6 H APTT Heparin Anti-Xa Level ABG pH POC ABG pCO2 POC ABG pO2 ABG Hemoglobin ABG Oxyhemoglobin ABG Sodium ABG Potassium ABG Chloride ABG Glucose Carboxyhemoglobin Sodium Potassium 3.4 L Chloride BUN Creatinine Glucose 126 H POC Glucose 69 L Lactic Acid Calcium Phosphorus AST 129 H ALT 60 H Troponin T C-Reactive Protein Albumin 3.7 L HDL Cholesterol Arterial Blood Glucose Arterial Blood Ionized Calcium Urine WBC (Auto) 09/29/20 09/29/20 09/29/20 04:00 05:53 08:39 WBC Hgb 10.0 L Hct MCV MCH RDW Lymph % (Auto) Ferry % (Auto) Lymph # (Auto) [place] # (Auto) Seg Neutrophils % Seg Neutrophils # APTT Heparin Anti-Xa Level ABG pH POC ABG pCO2 POC ABG pO2 81.1 L ABG Hemoglobin 11.0 L ABG Oxyhemoglobin ABG Sodium ABG Potassium ABG Chloride 110.0 H ABG Glucose 129 H Carboxyhemoglobin Sodium Potassium Chloride BUN Creatinine Glucose POC Glucose 58 L Lactic Acid Calcium Phosphorus AST ALT Troponin T C-Reactive Protein Albumin HDL Cholesterol Arterial Blood Glucose 129 H Arterial Blood Ionized Calcium Urine WBC (Auto) 09/30/20 09/30/20 09/30/20 00:10 10:45 15:05 WBC 12.5 H Hgb 9.9 L Hct MCV 78 L MCH 24 L RDW 21.0 H Lymph % (Auto) [place]erry % (Auto) 13.5 H Lymph # (Auto) [place] # (Auto) 1.7 H Seg Neutrophils % Seg Neutrophils # 8.1 H APTT Heparin Anti-Xa Level ABG pH 7.469 H POC ABG pCO2 POC ABG pO2 ABG Hemoglobin 10.4 L ABG Oxyhemoglobin ABG Sodium 146.2 H ABG Potassium ABG Chloride 109.0 H ABG Glucose 155 H Carboxyhemoglobin Sodium Potassium Chloride BUN Creatinine Glucose POC Glucose 131 H Lactic Acid Calcium Phosphorus AST ALT Troponin T C-Reactive Protein Albumin HDL Cholesterol Arterial Blood Glucose 155 H Arterial Blood Ionized Calcium Urine WBC (Auto) 09/30/20 09/30/20 10/01/20 15:05 17:37 00:29 WBC Hgb Hct MCV MCH RDW Lymph % (Auto) Ferry % (Auto) Lymph # (Auto) [place] # (Auto) Seg Neutrophils % Seg Neutrophils # APTT Heparin Anti-Xa Level ABG pH POC ABG pCO2 POC ABG pO2 ABG Hemoglobin ABG Oxyhemoglobin ABG Sodium ABG Potassium ABG Chloride ABG Glucose Carboxyhemoglobin Sodium Potassium Chloride 109.1 H BUN 18 H Creatinine 1.4 H Glucose 122 H POC Glucose 127 H 119 H Lactic Acid Calcium Phosphorus 2.00 L AST ALT Troponin T C-Reactive Protein Albumin HDL Cholesterol Arterial Blood Glucose Arterial Blood Ionized Calcium Urine WBC (Auto) 10/01/20 10/01/20 10/01/20 04:12 05:56 05:56 WBC 14.2 H Hgb 9.7 L Hct MCV 78 L MCH 23 L RDW 21.1 H Lymph % (Auto) Ferry % (Auto) Lymph # (Auto) [place] # (Auto) Seg Neutrophils % Seg Neutrophils # APTT Heparin Anti-Xa Level ABG pH POC ABG pCO2 POC ABG pO2 73.0 L ABG Hemoglobin 10.0 L ABG Oxyhemoglobin 93.7 L ABG Sodium 146.4 H ABG Potassium ABG Chloride 110.0 H ABG Glucose 124 H Carboxyhemoglobin 0.3 L Sodium 147 H Potassium Chloride 109.6 H BUN Creatinine Glucose 109 H POC Glucose Lactic Acid Calcium Phosphorus AST ALT Troponin T C-Reactive Protein Albumin HDL Cholesterol Arterial Blood Glucose 124 H Arterial Blood Ionized Calcium Urine WBC (Auto) 10/01/20 10/01/20 10/02/20 19:21 23:17 05:27 WBC Hgb Hct MCV MCH RDW Lymph % (Auto) Ferry % (Auto) Lymph # (Auto) [place] # (Auto) Seg Neutrophils % Seg Neutrophils # APTT Heparin Anti-Xa Level ABG pH POC ABG pCO2 POC ABG pO2 ABG Hemoglobin ABG Oxyhemoglobin ABG Sodium ABG Potassium ABG Chloride ABG Glucose Carboxyhemoglobin Sodium Potassium Chloride BUN Creatinine Glucose POC Glucose 126 H 160 H 121 H Lactic Acid Calcium Phosphorus AST ALT Troponin T C-Reactive Protein Albumin HDL Cholesterol Arterial Blood Glucose Arterial Blood Ionized Calcium Urine WBC (Auto) 10/02/20 10/02/20 10/02/20 06:48 06:48 11:51 WBC 14.2 H Hgb 9.6 L Hct MCV MCH 25 L RDW 21.7 H Lymph % (Auto) [place]erry % (Auto) Lymph # (Auto) [place] # (Auto) Seg Neutrophils % Seg Neutrophils # APTT Heparin Anti-Xa Level ABG pH POC ABG pCO2 POC ABG pO2 ABG Hemoglobin ABG Oxyhemoglobin ABG Sodium ABG Potassium ABG Chloride ABG Glucose Carboxyhemoglobin Sodium 147 H Potassium Chloride 110.4 H BUN Creatinine Glucose 134 H POC Glucose 121 H Lactic Acid Calcium Phosphorus 2.20 L AST ALT Troponin T C-Reactive Protein Albumin HDL Cholesterol Arterial Blood Glucose Arterial Blood Ionized Calcium Urine WBC (Auto) 10/02/20 10/03/20 10/03/20 17:19 00:35 07:24 WBC 12.9 H Hgb 8.9 L Hct 29.6 L MCV MCH 24 L RDW 21.9 H Lymph % (Auto) [place]erry % (Auto) Lymph # (Auto) [place] # (Auto) Seg Neutrophils % Seg Neutrophils # APTT Heparin Anti-Xa Level ABG pH POC ABG pCO2 POC ABG pO2 ABG Hemoglobin ABG Oxyhemoglobin ABG Sodium ABG Potassium ABG Chloride ABG Glucose Carboxyhemoglobin Sodium Potassium Chloride BUN Creatinine Glucose POC Glucose 107 H 112 H Lactic Acid Calcium Phosphorus AST ALT Troponin T C-Reactive Protein Albumin HDL Cholesterol Arterial Blood Glucose Arterial Blood Ionized Calcium Urine WBC (Auto) 10/03/20 10/03/20 10/03/20 07:24 17:27 20:19 WBC Hgb Hct MCV MCH RDW Lymph % (Auto) [place] % (Auto) Lymph # (Auto) [place] # (Auto) Seg Neutrophils % Seg Neutrophils # APTT Heparin Anti-Xa Level 0.18 L ABG pH POC ABG pCO2 POC ABG pO2 ABG Hemoglobin ABG Oxyhemoglobin ABG Sodium ABG Potassium ABG Chloride ABG Glucose Carboxyhemoglobin Sodium 147 H Potassium Chloride 110.4 H BUN Creatinine Glucose 128 H POC Glucose 136 H Lactic Acid Calcium Phosphorus AST ALT Troponin T C-Reactive Protein Albumin HDL Cholesterol Arterial Blood Glucose Arterial Blood Ionized Calcium Urine WBC (Auto) 10/03/20 10/04/20 10/04/20 23:34 04:07 06:12 WBC Hgb Hct MCV MCH RDW Lymph % (Auto) [place]erry % (Auto) Lymph # (Auto) [place] # (Auto) Seg Neutrophils % Seg Neutrophils # APTT Heparin Anti-Xa Level 0.25 L ABG pH POC ABG pCO2 POC ABG pO2 ABG Hemoglobin ABG Oxyhemoglobin ABG Sodium ABG Potassium ABG Chloride ABG Glucose Carboxyhemoglobin Sodium Potassium Chloride BUN Creatinine Glucose POC Glucose 119 H 128 H Lactic Acid Calcium Phosphorus AST ALT Troponin T C-Reactive Protein Albumin HDL Cholesterol Arterial Blood Glucose Arterial Blood Ionized Calcium Urine WBC (Auto) 10/04/20 10/04/20 10/05/20 11:38 17:39 00:17 WBC Hgb Hct MCV MCH RDW Lymph % (Auto) [place]erry % (Auto) Lymph # (Auto) [place] # (Auto) Seg Neutrophils % Seg Neutrophils # APTT Heparin Anti-Xa Level ABG pH POC ABG pCO2 POC ABG pO2 ABG Hemoglobin ABG Oxyhemoglobin ABG Sodium ABG Potassium ABG Chloride ABG Glucose Carboxyhemoglobin Sodium Potassium Chloride BUN Creatinine Glucose POC Glucose 129 H 136 H 125 H Lactic Acid Calcium Phosphorus AST ALT Troponin T C-Reactive Protein Albumin HDL Cholesterol Arterial Blood Glucose Arterial Blood Ionized Calcium Urine WBC (Auto) 10/05/20 10/05/20 10/05/20 04:17 04:17 05:31 WBC 13.0 H Hgb 9.1 L Hct 29.5 L MCV MCH 25 L RDW 22.2 H Lymph % (Auto) [place]erry % (Auto) Lymph # (Auto) [place] # (Auto) Seg Neutrophils % Seg Neutrophils # APTT Heparin Anti-Xa Level ABG pH POC ABG pCO2 POC ABG pO2 ABG Hemoglobin ABG Oxyhemoglobin ABG Sodium ABG Potassium ABG Chloride ABG Glucose Carboxyhemoglobin Sodium Potassium Chloride BUN Creatinine Glucose 148 H POC Glucose 160 H Lactic Acid Calcium Phosphorus AST ALT Troponin T C-Reactive Protein Albumin HDL Cholesterol Arterial Blood Glucose Arterial Blood Ionized Calcium Urine WBC (Auto) 10/05/20 10/05/20 10/05/20 12:09 17:33 23:30 WBC Hgb Hct MCV MCH RDW Lymph % (Auto) [place]erry % (Auto) Lymph # (Auto) [place] # (Auto) Seg Neutrophils % Seg Neutrophils # APTT Heparin Anti-Xa Level ABG pH POC ABG pCO2 POC ABG pO2 ABG Hemoglobin ABG Oxyhemoglobin ABG Sodium ABG Potassium ABG Chloride ABG Glucose Carboxyhemoglobin Sodium Potassium Chloride BUN Creatinine Glucose POC Glucose 148 H 135 H 142 H Lactic Acid Calcium Phosphorus AST ALT Troponin T C-Reactive Protein Albumin HDL Cholesterol Arterial Blood Glucose Arterial Blood Ionized Calcium Urine WBC (Auto) 10/06/20 10/06/20 10/06/20 04:37 05:35 10:55 WBC Hgb Hct MCV MCH RDW Lymph % (Auto) [place]erry % (Auto) Lymph # (Auto) [place] # (Auto) Seg Neutrophils % Seg Neutrophils # APTT Heparin Anti-Xa Level ABG pH POC ABG pCO2 POC ABG pO2 ABG Hemoglobin ABG Oxyhemoglobin ABG Sodium ABG Potassium ABG Chloride ABG Glucose Carboxyhemoglobin Sodium 136 L Potassium Chloride BUN Creatinine Glucose 184 H POC Glucose 151 H 163 H Lactic Acid Calcium Phosphorus AST 66 H ALT Troponin T C-Reactive Protein Albumin 3.3 L HDL Cholesterol Arterial Blood Glucose Arterial Blood Ionized Calcium Urine WBC (Auto) 10/06/20 10/06/20 10/07/20 16:41 23:31 05:24 WBC Hgb Hct MCV MCH RDW Lymph % (Auto) [place]erry % (Auto) Lymph # (Auto) [place] # (Auto) Seg Neutrophils % Seg Neutrophils # APTT Heparin Anti-Xa Level ABG pH POC ABG pCO2 POC ABG pO2 ABG Hemoglobin ABG Oxyhemoglobin ABG Sodium ABG Potassium ABG Chloride ABG Glucose Carboxyhemoglobin Sodium Potassium Chloride BUN Creatinine Glucose POC Glucose 156 H 190 H 194 H Lactic Acid Calcium Phosphorus AST ALT Troponin T C-Reactive Protein Albumin HDL Cholesterol Arterial Blood Glucose Arterial Blood Ionized Calcium Urine WBC (Auto) Chest x-ray: image reviewed Allied health notes reviewed: RT
--- NOTE | 2020-10-07 11:00 | Event Note ---
Date: 10/07/20 Discussed with her aunt Francis Cazares - [phone]. Updated her on the patient's current condition. Discussed the need for tracheostomy and PEG placement if we are to continue with aggressive full care. She does want us to proceed with trach and PEG. Consult placed to General surgery
--- NOTE | 2020-10-07 13:41 | Consultation ---
History of Present Illness Consult date: 10/07/20 Chief complaint: Anoxic brain injury - History of present illness History of present illness: 45 yo female with cardiac arrest and anoxic brain injury. Needs tracheostomy and PEG. Past History Past Medical History: GERD, other (See HPI) Past Surgical History: No surgical history (Thank you) Social history: single. denies: smoking, alcohol abuse Family history: hypertension Medications and Allergies Allergies Allergy/AdvReac Type Severity Reaction Status Date / Time No Known Allergies Allergy Unverified 06/19/19 11:32 Home Medications Medication Instructions Recorded Confirmed Last Taken Type Amoxicillin [Amoxicillin TAB] 875 mg PO BID #14 tablet 06/19/19 Unknown Rx Esomeprazole Magnesium [NexIUM] 40 mg PO QDAY #30 capsule. 06/19/19 Unknown Rx guaiFENesin [Robitussin] 5 ml PO TID PRN #100 ml 06/19/19 Unknown Rx Active Meds: Active Medications Acetaminophen (Acetaminophen 650 Mg Rect Supp) 650 mg ND Q6H PRN PRN Reason: Pain MILD(1-3)/Fever >100.5/RUIZ Acetaminophen (Acetaminophen 325 Mg Tab) 650 mg PO Q6H PRN PRN Reason: Pain, Mild (1-3) Last Admin: 10/05/20 00:28 Dose: 650 mg Documented by: Albuterol (Albuterol 2.5 Mg/3 Ml Nebu) 2.5 mg IH Q3HRT PRN PRN Reason: Shortness Of Breath Lipase/Protease/Amylase (Lipase 10,500/Protease 25,000/Amylase 43,750 (Units) Dr Davis) 1 each FEEDTUBE PRN PRN PRN Reason: For Clogged Feeding Tube Aspirin (Aspirin 81 Mg Tab Chew) 81 mg PO QDAY [facility] Last Admin: 10/07/20 10:03 Dose: 81 mg Documented by: Carvedilol (Carvedilol 12.5 Mg Tab) 12.5 mg PO BID [facility] Last Admin: 10/07/20 10:04 Dose: 12.5 mg Documented by: Famotidine (Famotidine 20 Mg Tab) 20 mg PO BID [facility] Last Admin: 10/07/20 10:04 Dose: 20 mg Documented by: Heparin Sodium (Porcine) (Heparin 5,000 Unit/1 Ml Vial) 5,000 unit SUB-Q Q8HR [facility] Last Admin: 10/07/20 08:00 Dose: 5,000 unit Documented by: Hydromorphone HCl (Hydromorphone 1 Mg/1 Ml Inj) 0.25 mg IV Q4H PRN PRN Reason: Pain, Moderate (4-6) Last Admin: 09/30/20 14:05 Dose: 0.25 mg Documented by: Hydrophilic Ointment (Lip Therapy Vaseline) 1 applic TP Q2HR PRN PRN Reason: Dry Lips Labetalol HCl (Labetalol 20 Mg/4 Ml Inj) 10 mg IV Q4H PRN PRN Reason: Blood Pressure Last Admin: 09/30/20 14:02 Dose: 10 mg Documented by: Levetiracetam (Levetiracetam 500 Mg/5 Ml Oral Liqd) 750 mg PO BID [facility] Last Admin: 10/07/20 10:03 Dose: 750 mg Documented by: Lorazepam (Lorazepam 2 Mg/Ml Vial) 2 mg IV Q4H PRN PRN Reason: Seizures Losartan Potassium (Losartan 25 Mg Tab) 25 mg PO QDAY [facility] Last Admin: 10/07/20 10:03 Dose: 25 mg Documented by: Metoclopramide HCl (Metoclopramide 10 Mg/2 Ml Inj) 10 mg IV Q6H PRN PRN Reason: Nausea And Vomiting Last Admin: 09/30/20 20:20 Dose: 10 mg Documented by: Modafinil (Modafinil 100 Mg Tab) 200 mg PO QAM [facility] Last Admin: 10/07/20 10:03 Dose: 200 mg Documented by: Multi-Ingred Cream/Lotion/Oil/Oint (Mineral Oil/Petrolatum, White Ophth Oint 3.5 Gm) 1 applic OU Q4HR PRN PRN Reason: Dry Eye(s) Last Admin: 09/28/20 22:02 Dose: 1 applic Documented by: Ondansetron HCl (Ondansetron 4 Mg/2 Ml Inj) 4 mg IV Q8H PRN PRN Reason: Nausea And Vomiting Last Admin: 09/30/20 10:01 Dose: 4 mg Documented by: Scopolamine (Scopolamine Transdermal Patch 72 Hr) 1 each TD Q72HR [facility] Last Admin: 10/02/20 09:43 Dose: 1 each Documented by: Simple Syrup (Simple Syrup 15 Ml) 15 ml FEEDTUBE PRN PRN PRN Reason: Hypoglycemia Simple Syrup (Simple Syrup 15 Ml) 30 ml FEEDTUBE PRN PRN PRN Reason: Hypoglycemia Last Admin: 09/29/20 06:13 Dose: 30 ml Documented by: Sodium Bicarbonate (Sodium Bicarbonate 325 Mg Tab) 325 mg FEEDTUBE PRN PRN PRN Reason: For Clogged Feeding Tube Sodium Chloride (Sodium Chloride 0.9% 10 Ml Flush Syringe) 10 ml IV BID [facility] Last Admin: 10/07/20 10:04 Dose: 10 ml Documented by: Sodium Chloride (Sodium Chloride 0.9% 10 Ml Flush Syringe) 10 ml IV PRN PRN PRN Reason: LINE FLUSH Review of Systems ROS unobtainable: due to mental status Exam Vital Signs Pulse Ox 95 09/25/20 16:46 - General physical appearance Positive: well developed, well nourished, no distress - Eyes Positive: PERRL, normal occular movement - ENT Positive: normal pinna, normal nares, normal mucosa, no hearing loss, no congestion - Neck Positive: no masses, no bruits, trachea midline, no venous distension - Respiratory Positive: normal expansion, normal respiratory effort, clear to auscultation - Cardiovascular Rhythm: regular Heart Sounds: Present: S1 & S2. Absent: rub, click - Extremities Extremities: no ischemia, pulses symmetrical, No edema - Breasts Breasts: normal, no mass, no skin changes - Abdomen Abdomen: Present: soft, bowel sounds normal. Absent: tender, distended Hernia: none - Genitourinary Male Genitourinary: normal Female Genitourinary: normal - Integumentary no rash, no growths, no abnormal pigmentation Results - Labs 10/05/20 04:17 10/06/20 04:37 Abnormal lab results 10/06/20 10/06/20 10/07/20 Range/Units 16:41 23:31 05:24 POC Glucose 156 H 190 H 194 H (70-105) mg/dL Assessment and Plan - Patient Problems (1) Cardiac arrest Current Visit: Yes Status: Acute Plan to address problem: 1) Will post for tracheostomy and PEG
[2020-10-07 18:42] LABS: Hematocrit 30.1 % (30.3-42.9); Hemoglobin 9.2 gm/dl (10.1-14.3); Mean Corpuscular HGB Conc 31 % (30-34); Mean Corpuscular Volume 80 fl (79-97); Platelet Count 514 K/mm3 (140-440); Red Blood Count 3.77 M/mm3 (3.65-5.03)
[2020-10-07 18:43] LABS: Red Cell Distribution Width 24.1 % (13.2-15.2)
[2020-10-07 19:23] LABS: Band Neutrophils # (Manual) 0.5 K/mm3; Total Cells Counted 100
[2020-10-07 19:24] LABS: Anisocytosis 2+; Hypochromasia 1+; Large Platelets Few; Platelet Estimate Consistent w Auto; Toxic Granulation 1+
[2020-10-07] MEDS: SENNOSIDES 8.6 MG TAB PO SCH (22:08)
[2020-10-08] MEDS ORDERED: SODIUM CHLORIDE 0.9% 1000 ML 1,000 ML ONE ×2 (00:11→10:53)
[2020-10-08 05:03] LABS: Alanine Aminotransferase 36 units/L (7-56); Albumin 3.9 g/dL (3.9-5); Blood Urea Nitrogen 18 mg/dL (7-17); Calcium 10.3 mg/dL (8.4-10.2); Hemolysis Index 7
[2020-10-08 05:07] LABS: BUN/Creatinine Ratio 30
[2020-10-08 05:16] LABS: Hematocrit 31.5 % (30.3-42.9); Hemoglobin 9.6 gm/dl (10.1-14.3); Mean Corpuscular HGB Conc 31 % (30-34); Mean Corpuscular Volume 80 fl (79-97); Platelet Count 517 K/mm3 (140-440); Red Blood Count 3.94 M/mm3 (3.65-5.03)
[2020-10-08 05:18] LABS: Red Cell Distribution Width 23.3 % (13.2-15.2)
[2020-10-08] MEDS: HEPARIN 5,000 UNIT/1 ML VIAL SUB-Q SCH ×3 (06:13→22:40)
[2020-10-08] MEDS ORDERED: ROCURONIUM 50 MG/5 ML INJ IV ONE (07:32)
[2020-10-08] MEDS ORDERED: fentaNYL 100 MCG/2 ML INJ ONE (07:32)
[2020-10-08] MEDS ORDERED: propofoL 200 MG/20 ML VIAL IV ONE (07:33)
[2020-10-08] MEDS ORDERED: BUPIVACAINE-EPINEPHRINE/PF 0.25%-1:200,000 (30 ML) VIAL INFILTRATI ONE (07:36)
[2020-10-08] MEDS ORDERED: LIDOCAINE 1%/EPINEPHRINE 1:100,000 VIAL (20 ML) INFILTRATI ONE ×2 (07:36→07:38)
--- NOTE | 2020-10-08 08:27 | Anesthesia Day of Surgery ---
Anesthesia Day of Surgery - Day of Surgery Patient Examined: Yes Patient H&P Reviewed: Yes Patient is NPO: Yes
--- NOTE | 2020-10-08 08:27 | Anesthesia Consultation ---
Anesthesia Consult and Med Hx Date of service: 10/08/20 - Airway Intubation Access Assessment: Possibly Difficult (oETT in situ) - Pre-Operative Health Status ASA Pre-Surgery Classification: ASA3 Proposed Anesthetic Plan: General - Pulmonary Hx Asthma: Yes - Cardiovascular System Hx Hypertension: Yes Hx Heart Attack/AMI: Yes (NSTEMI on admission; EF 20-25%) Hx Percutaneous Transluminal Coronary Angioplasty (PTCA): No Hx Cardia Arrhythmia: No Hx Pacemaker: No Hx Internal Defibrillator: No - Central Nervous System Hx Seizures: Yes CVA: Yes (anoxic brain injury s/p cardiac arrest) - Endocrine Hx Renal Disease: No Hx Liver Disease: No Hx Insulin Dependent Diabetes: No - Hematic Hx Anemia: Yes - Other Systems Hx Obesity: Yes (BMI 39) - Additional Comments Anesthesia Medical History Comments: Scheduled for trach/PEG in OR.
[2020-10-08] MEDS ORDERED: ceFAZolin 1 GM VIAL ONE ×2 (08:52)
[2020-10-08] MEDS ORDERED: LIDOCAINE-MPF (1%) 10 MG/1 ML VIAL 5 ML INFILTRATI ONE (08:56)
--- NOTE | 2020-10-08 09:14 | Progress Note ---
Assessment and Plan --Acute encephalopathy s/p cardiac arrest; due to anoxic brain injury; MRI/ EEG - see report; concerned for anoxic injury neurology has seen poor prognosis case management working with family on d/c plan Status post trach and PEG placement today; pt is a full code at this time --hx seizure disorder keppra BID PRN ativan modafinil daily no movement to noxious stimuli -hx htn; -hx dilated BIOPSYCHOLOGIST/NSTEMI SR, asa daily coreg and cozar scheduled RN should hold BP meds for MAP <65 PRN labetolol echo LVEF 20-25 I/O follow electrolytes and replace as needed AM labs ordered -Acute hypoxic resp failure sp cardiac arrest Patient ventilated with mechanical ventilation gen surg consulted for trach --GERD pepcid scopolamine patch every 72 hours ordered standing --Constipation gen surg consult for PEG last recorded BM 6- bowel reg senna tolerating TF --Febrile illness with intermittent temps intermittent temps ? neuro etiology trend temp and WBC curve last cultures on 09/25 no antibiotics at this time --Morbid obesity avoid hypoglycemia currently on no SSI- continue to monitor for need with inc in TF rate Disposition Plan: LTC v home with family Total Time Spent with Patient (Minutes): 60 Brief history: 45-year-old female with obesity hypoventilation syndrome and GERD who presented to the emergency department on 09/25/20 s/p cardiac arrest via EMS. Per EMS staff they were notified for shortness of breath and upon arrival patient was found to be in distress and subsequently went into cardiac arrest and she was treated in accordance to ACLS protocol and intubated in the field and transported to [facility]. Evaluation in the emergency department upon arrival to the emergency department patient was found to have persistent hypoxic respiratory failure and was maintained on ventilator support. Work-up revealed sepsis, pneumonia, seizure disorder, metabolic acidosis as well as NSTEMI. Cardiology, neurology, CCM were consulted. Daily clinical course: 09/26/20: Patient was admitted with out of the hospital cardiac arrest status post CPR per ACLS protocols Anoxic brain injury, unresponsive Orally intubated on ventilatory support Vital signs reviewed. called patient's aunt , STAN Minor at [phone] and discussed in detail, patient's condition, tests and reports, consultants recommendations, poor prognosis, treatment plan[explained in detail the medications and their role in the treatment] pending tests. 09/27/2020; patient remains unresponsive, intubated on ventilatory support Follow neurology evaluation and recommendations 10/01: Patient has persistent leukocytosis and hyperchloremia. Patient now has hypernatremia and renal function has improved to CR/BUN 1.115 from 1.08/04. Patient has hypophosphatemia which was repleted yesterday and we will obtain a.m. labs. Patient has MRI brain pending. Family updated by neurology over the phone and AIRPORT ENGINEER at bedside. Patient niece was at bedside today and she will defer goals of care decision after MRI results. EEG findings were explained. According to her the patient was in found to be unresponsive by family and was given bystander CPR before arrival of EMS. 10/02: Patient received MRI brain today which showed diffuse cerebral restricted diffusion consistent with global anoxic brain injury, no associated hemorrhage or herniation and additional small acute lacunar infarct in the right paracentral lesia. 10/03: Cardiology will follow the patient peripherally given poor prognosis, Dr. Alvarado and has spoken to the family regarding prognosis today. Given hypotension patient will receive lower doses of blood pressure medicine and per manager social request a referral to [facility]. 10/04: Patient bilateral Doppler ultrasound are negative and heparin drip has been stopped. [facility] referral made by CM which was denied. Family is aware. No acute events reported overnight. Patient family was at bedside and updated by neurologist. Explained to them that pt. is not brain but is with significant brain injury, she is off sedation for a week with no clear changes in her clinical presentation. 10/05: Today patient is no longer hypernatremic so free water flushes were resume at the rate nutrition as ordered. Decrease in Cozaar today patient's T-max 100.7 which was responsive to Tylenol. At the time examination patient is on assist control tidal volume 450, rate of 12, PEEP of 6 and 25% FiO2. Patient will be tried on a CPAP trial today. 10/06/2020: No family at the bedside, spoke with critical care, patient was opening her eyes but continues to be encephalopathic. Patient on cefepime, will get pro-Kareem, if negative, DC antibiotics. Continues to be on CPAP and intubated. 10/07: No significant change clinically, patient remains on mechanical ventilati on. discussed LT plan with Aunt and she is wanting a trach/peg and to take pt home with her; pt is a full code at this time. 10/08: General surgery consulted for trach and PEG placement. Patient remains on mechanical ventilation with diffuse anoxic brain injury status post cardiac arrest. Continue supportive care monitor clinically. Patient is full code very poor prognosis. Subjective Date of service: 10/08/20 Principal diagnosis: Cardiac arrest; Ac. respiratory failure; Anoxic encephalopathy; PNA; NSTEMI Interval history: Patient seen and examined. Medical records and medication list reviewed. No acute event overnight noted by the RN. Patient is status post trach and PEG tube placement today Discussed plan of care at bedside with patient's sister in details. Objective - Exam Narrative Exam: General appearance: Present: no acute distress, well-nourished, other (not responsive ) - EENT ENT: clear oral mucosa - Neck Neck: Present: supple, normal ROM, trach in place - Respiratory Respiratory effort: normal - Cardiovascular Rhythm: regular Heart Sounds: Present: S1 & S2 Peripheral Pulses: within normal limits - Abdominal General gastrointestinal: soft, non-tender, PEG in place - Integumentary Integumentary: Present: clear, warm, dry - Allied Health Allied health notes reviewed: nursing, case management - Constitutional Vitals: Vital Signs - 12hr 10/07/20 10/07/20 10/07/20 21:00 21:30 22:00 Temperature Pulse Rate 95 H 94 H 94 H Pulse Rate [ From Monitor] Respiratory 16 16 14 Rate Blood Pressure 127/77 126/73 117/72 O2 Sat by Pulse 100 100 100 Oximetry 10/07/20 10/07/20 10/07/20 22:08 22:30 23:00 Temperature Pulse Rate 95 H 100 H 100 H Pulse Rate [ From Monitor] Respiratory 15 15 Rate Blood Pressure 117/72 122/80 136/76 O2 Sat by Pulse 100 100 Oximetry 10/07/20 10/08/20 10/08/20 23:30 00:00 00:30 Temperature 99.2 F Pulse Rate 95 H 91 H 94 H Pulse Rate [ 96 H From Monitor] Respiratory 15 16 14 Rate Blood Pressure 124/73 125/69 110/68 O2 Sat by Pulse 100 100 100 Oximetry 10/08/20 10/08/20 10/08/20 00:33 01:00 01:30 Temperature Pulse Rate 94 H 95 H 105 H Pulse Rate [ From Monitor] Respiratory 15 18 Rate Blood Pressure 125/69 131/75 131/75 O2 Sat by Pulse 100 100 100 Oximetry 10/08/20 10/08/20 10/08/20 02:00 02:30 03:00 Temperature Pulse Rate 102 H 96 H 95 H Pulse Rate [ From Monitor] Respiratory 13 14 15 Rate Blood Pressure 151/93 138/90 140/90 O2 Sat by Pulse 100 100 99 Oximetry 10/08/20 10/08/20 10/08/20 03:30 04:00 04:13 Temperature Pulse Rate 95 H 94 H 94 H Pulse Rate [ 96 H From Monitor] Respiratory 13 14 Rate Blood Pressure 134/87 142/89 142/89 O2 Sat by Pulse 100 100 100 Oximetry 10/08/20 10/08/20 10/08/20 04:30 05:00 05:30 Temperature 99.7 F H Pulse Rate 91 H 99 H 95 H Pulse Rate [ From Monitor] Respiratory 14 12 13 Rate Blood Pressure 139/90 130/87 141/84 O2 Sat by Pulse 100 100 100 Oximetry 10/08/20 10/08/20 10/08/20 06:00 06:30 07:00 Temperature Pulse Rate 90 93 H 91 H Pulse Rate [ From Monitor] Respiratory 12 12 12 Rate Blood Pressure 123/80 128/78 128/78 O2 Sat by Pulse 100 100 100 Oximetry 10/08/20 10/08/20 07:30 08:00 Temperature Pulse Rate 93 H 99 H Pulse Rate [ 93 H From Monitor] Respiratory 13 13 Rate Blood Pressure 137/85 144/90 O2 Sat by Pulse 100 100 Oximetry - Labs CBC & Chem 7: 10/10/20 03:42 10/10/20 03:42 Labs: Abnormal lab results 10/07/20 10/07/20 10/07/20 Range/Units 11:48 17:50 18:12 WBC 15.7 H (4.5-11.0) K/mm3 Hgb 9.2 L (10.1-14.3) gm/dl Hct 30.1 L (30.3-42.9) % MCH 25 L (28-32) pg RDW 24.1 H (13.2-15.2) % Plt Count 514 H (140-440) K/mm3 Seg Neuts % (Manual) 71.0 H (40.0-70.0) % Eosinophils % (Manual) 5.0 H (0.0-4.3) % Seg Neutrophils # Man 11.1 H (1.8-7.7) K/mm3 Monocytes # (Manual) 1.1 H (0.0-0.8) K/mm3 Eosinophils # (Manual) 0.8 H (0.0-0.4) K/mm3 BUN (7-17) mg/dL Glucose (65-100) mg/dL POC Glucose 203 H 191 H (70-105) mg/dL Calcium (8.4-10.2) mg/dL AST (5-40) units/L 10/07/20 10/08/20 10/08/20 Range/Units 23:40 04:22 04:22 WBC 15.2 H (4.5-11.0) K/mm3 Hgb 9.6 L (10.1-14.3) gm/dl Hct (30.3-42.9) % MCH 24 L (28-32) pg RDW 23.3 H (13.2-15.2) % Plt Count 517 H (140-440) K/mm3 Seg Neuts % (Manual) (40.0-70.0) % Eosinophils % (Manual) (0.0-4.3) % Seg Neutrophils # Man (1.8-7.7) K/mm3 Monocytes # (Manual) (0.0-0.8) K/mm3 Eosinophils # (Manual) (0.0-0.4) K/mm3 BUN 18 H (7-17) mg/dL Glucose 150 H (65-100) mg/dL POC Glucose 191 H (70-105) mg/dL Calcium 10.3 H (8.4-10.2) mg/dL AST 63 H (5-40) units/L 10/08/20 Range/Units 05:41 WBC (4.5-11.0) K/mm3 Hgb (10.1-14.3) gm/dl Hct (30.3-42.9) % MCH (28-32) pg RDW (13.2-15.2) % Plt Count (140-440) K/mm3 Seg Neuts % (Manual) (40.0-70.0) % Eosinophils % (Manual) (0.0-4.3) % Seg Neutrophils # Man (1.8-7.7) K/mm3 Monocytes # (Manual) (0.0-0.8) K/mm3 Eosinophils # (Manual) (0.0-0.4) K/mm3 BUN (7-17) mg/dL Glucose (65-100) mg/dL POC Glucose 125 H (70-105) mg/dL Calcium (8.4-10.2) mg/dL AST (5-40) units/L HEART Score - HEART Score EKG: Normal Age: 45-65 Risk factors: No known risk factors Troponin: Troponin T < 0.010 ng/mL (0.00-0.029) 10/02/20 06:48 Troponin: < normal limit - Critical Actions Critical Actions: 0-3 pts:0.9-1.7%risk of adverse cardiac event.Candidate for discharge
[2020-10-08] MEDS: MODAFINIL 100 MG TAB PO SCH ×2 (10:46→12:57)
[2020-10-08] MEDS: levETIRAcetam 500 MG/5 ML ORAL LIQD PO SCH ×3 (10:46→22:38)
[2020-10-08] MEDS: FAMOTIDINE 20 MG TAB PO SCH ×3 (10:46→22:39)
[2020-10-08] MEDS: LOSARTAN 25 MG TAB PO SCH ×2 (10:46→12:58)
[2020-10-08] MEDS: carvediloL 12.5 MG TAB PO SCH ×3 (10:47→22:39)
[2020-10-08] MEDS: ASPIRIN 81 MG TAB CHEW PO SCH (10:47)
--- NOTE | 2020-10-08 11:32 | Progress Note ---
Assessment and Plan Cardiac arrest with return of spontaneous circulation. Acute respiratory failure, on mechanical ventilatory support. Acute toxic metabolic encephalopathy. Possible anoxic encephalopathy. Obesity. History of obesity hypoventilation syndrome. Leukocytosis. Likely aspiration pneumonia, bilateral. Anemia that is microcytic. Lactic acidosis. Elevated serum transaminases. Non-ST elevation myocardial infarction - begtin D5W @ 50/hr till tube feeds resumed - am CXR - continue scopolamine patch for secretion control - bilateral lower extremity dopplers negative for DVT - LTAC evaluation ongoing - continue care as below otherwise; - continue to wean supplemental oxygen for target O2 sat's > 90% acutely - VAP bundle addressed - continue lung protective strategies - continue bronchodilators with pulmonary hygiene per RT - wean per pulmonary driven protocols otherwise - continue Daily SAT and SBT assessment as tolerated - continue accuchecks with glycemic control per SSI (While critically ill target blood glucose of 140-180 mg/dL; avoid hypoglycemia) - sedation prn for target RASS 0 to -1 - avoid nephrotoxins, renally dose all medications - continue to avoid benzodiazepine's, reduce the possibility of delirium - completed AB's per ID rec's - prn analgesia per CPOT score - Maintenance of sleep-wake cycle, avoid delirium - continue enteral nutritional support at goal rate as tolerated - G.I. & VTE prophylaxis - PT/OT/ROM exercises - continue mobility protocols for pressure ulcer prophylaxis - Monitor hemodynamics closely - continue other care per attending / other consultants - discharge planning ongoing concurrently COVID SPECIFIC INTERVENTIONS - COVID tests result was negative .... Re-evaluate in am & prn CONDITION: CRITICAL PROGNOSIS: GUARDED CODE STATUS: FULL CODE The high probability of a clinically significant, sudden or life-threatening deterioration of the [respiratory, cardiovascular & neurologic] system(s) required my full and direct attention, intervention and personal management. The aggregate critical care time was [33] minutes without overlap. Time includes spent on; [x] Data Review and interpretation [x] Patient assessment and monitoring of vital signs [x] Documentation [x] Medication orders and management Subjective Date of service: 10/08/20 Principal diagnosis: Cardiac arrest; Ac. respiratory failure; Anoxic encephalopathy; PNA; NSTEMI Interval history: Patient is seen today for: Cardiac arrest with ROSC; Acute respiratory failure; Anoxic encephalopathy; Obesity; OHS; Aspiration pneumonia; NSTEMI Seen and examined at bedside; 24hour events reviewed; nursing and respiratory care staff consulted; no adverse overnight events reported to me; resting in bed; remains on MVS; resting in bed; just back from O.R. s/p trach and PEG; AMS is persistent; episode of hypoglycemia earlier Objective Vital Signs - 12hr 10/08/20 10/08/20 10/08/20 00:00 00:30 00:33 Temperature 99.2 F Pulse Rate 91 H 94 H 94 H Pulse Rate [ 96 H From Monitor] Respiratory 16 14 Rate Blood Pressure 125/69 110/68 125/69 O2 Sat by Pulse 100 100 100 Oximetry 10/08/20 10/08/20 10/08/20 01:00 01:30 02:00 Temperature Pulse Rate 95 H 105 H 102 H Pulse Rate [ From Monitor] Respiratory 15 18 13 Rate Blood Pressure 131/75 131/75 151/93 O2 Sat by Pulse 100 100 100 Oximetry 10/08/20 10/08/20 10/08/20 02:30 03:00 03:30 Temperature Pulse Rate 96 H 95 H 95 H Pulse Rate [ From Monitor] Respiratory 14 15 13 Rate Blood Pressure 138/90 140/90 134/87 O2 Sat by Pulse 100 99 100 Oximetry 10/08/20 10/08/20 10/08/20 04:00 04:13 04:30 Temperature Pulse Rate 94 H 94 H 91 H Pulse Rate [ 96 H From Monitor] Respiratory 14 14 Rate Blood Pressure 142/89 142/89 139/90 O2 Sat by Pulse 100 100 100 Oximetry 10/08/20 10/08/20 10/08/20 05:00 05:30 06:00 Temperature 99.7 F H Pulse Rate 99 H 95 H 90 Pulse Rate [ From Monitor] Respiratory 12 13 12 Rate Blood Pressure 130/87 141/84 123/80 O2 Sat by Pulse 100 100 100 Oximetry 10/08/20 10/08/20 10/08/20 06:30 07:00 07:30 Temperature 98.9 F Pulse Rate 93 H 91 H 93 H Pulse Rate [ From Monitor] Respiratory 12 12 13 Rate Blood Pressure 128/78 128/78 137/85 O2 Sat by Pulse 100 100 100 Oximetry 10/08/20 08:00 Temperature Pulse Rate 99 H Pulse Rate [ 93 H From Monitor] Respiratory 13 Rate Blood Pressure 144/90 O2 Sat by Pulse 100 Oximetry Constitutional: no acute distress, other (middle aged obese female with normal respiratory effort at rest on MVS) Eyes: non-icteric ENT: oropharynx moist, other (+ midline tracheostomy) Neck: supple, no lymphadenopathy, no JVD Effort: mildly labored Ascultation: Bilateral: rhonchi Percussion: Bilateral: not dull Cardiovascular: regular rate and rhythm, other (S1,S2) Gastrointestinal: normoactive bowel sounds, soft, non-tender, non-distended Integumentary: normal Extremities: no cyanosis, no edema, pulses normal, no ischemia or petechiae Neurologic: pupils equal and round, unable to assess Psychiatric: other (unable to assess re: AMS) CBC and BMP: 10/09/20 04:07 10/09/20 04:07 ABG, PT/INR, D-dimer: ABG ABG pH 7.424 (7.320-7.450) 10/01/20 04:12 POC ABG pCO2 41.6 mmHg (32.0-48.0) 10/01/20 04:12 POC ABG pO2 73.0 mmHg (83-108) L 10/01/20 04:12 POC ABG HCO3 26.6 10/01/20 04:12 ABG O2 Saturation 94.3 (0-100) 10/01/20 04:12 PT/INR, D-dimer PT 13.7 Sec. (12.2-14.9) 09/25/20 18:15 INR 1.00 (0.87-1.13) 09/25/20 18:15 Abnormal lab findings: Abnormal Labs 09/25/20 09/25/20 09/25/20 17:19 17:21 18:15 WBC 13.8 H Hgb 9.9 L Hct MCV 76 L MCH 23 L RDW 17.9 H Plt Count Lymph % (Auto) [facility] % (Auto) Lymph # (Auto) [facility] # (Auto) Seg Neutrophils % 78.6 H Seg Neuts % (Manual) Eosinophils % (Manual) Seg Neutrophils # 10.8 H Seg Neutrophils # Man Monocytes # (Manual) Eosinophils # (Manual) APTT Heparin Anti-Xa Level ABG pH POC ABG pCO2 26.2 L POC ABG pO2 554.5 H ABG Hemoglobin 9.0 L ABG Oxyhemoglobin 99.0 H ABG Sodium 134.5 L ABG Potassium ABG Chloride ABG Glucose 220 H Carboxyhemoglobin Sodium Potassium Chloride BUN Creatinine Glucose POC Glucose Lactic Acid Calcium Phosphorus AST ALT Troponin T C-Reactive Protein Albumin HDL Cholesterol Arterial Blood Glucose 220 H Arterial Blood Ionized Calcium 4.2 L Urine WBC (Auto) 14.0 H 09/25/20 09/25/20 09/25/20 18:15 18:15 18:15 WBC Hgb Hct MCV MCH RDW Plt Count Lymph % (Auto) [facility] % (Auto) Lymph # (Auto) [facility] # (Auto) Seg Neutrophils % Seg Neuts % (Manual) Eosinophils % (Manual) Seg Neutrophils # Seg Neutrophils # Man Monocytes # (Manual) Eosinophils # (Manual) APTT 21.1 L Heparin Anti-Xa Level ABG pH POC ABG pCO2 POC ABG pO2 ABG Hemoglobin ABG Oxyhemoglobin ABG Sodium ABG Potassium ABG Chloride ABG Glucose Carboxyhemoglobin Sodium Potassium Chloride BUN Creatinine Glucose 113 H POC Glucose Lactic Acid 2.60 H* Calcium Phosphorus AST 162 H ALT 131 H Troponin T 0.096 H C-Reactive Protein Albumin HDL Cholesterol Arterial Blood Glucose Arterial Blood Ionized Calcium Urine WBC (Auto) 09/25/20 09/25/20 09/26/20 23:13 23:13 03:15 WBC Hgb Hct MCV MCH RDW Plt Count Lymph % (Auto) [facility] % (Auto) Lymph # (Auto) [facility] # (Auto) Seg Neutrophils % Seg Neuts % (Manual) Eosinophils % (Manual) Seg Neutrophils # Seg Neutrophils # Man Monocytes # (Manual) Eosinophils # (Manual) APTT Heparin Anti-Xa Level ABG pH 7.451 H POC ABG pCO2 27.1 L POC ABG pO2 ABG Hemoglobin 10.4 L ABG Oxyhemoglobin ABG Sodium 135.2 L ABG Potassium ABG Chloride 108.0 H ABG Glucose 137 H Carboxyhemoglobin Sodium Potassium Chloride BUN Creatinine Glucose POC Glucose Lactic Acid 2.90 H* Calcium Phosphorus AST ALT Troponin T 0.170 H* D C-Reactive Protein Albumin HDL Cholesterol 60 H Arterial Blood Glucose 137 H Arterial Blood Ionized Calcium 4.2 L Urine WBC (Auto) 09/26/20 09/26/20 09/26/20 05:09 05:09 05:09 WBC 15.8 H Hgb 10.0 L Hct MCV 77 L MCH 24 L RDW 17.8 H Plt Count Lymph % (Auto) 7.[address] [facility] % (Auto) Lymph # (Auto) 1.[address] [facility] # (Auto) 1.0 H Seg Neutrophils % 86.1 H Seg Neuts % (Manual) Eosinophils % (Manual) Seg Neutrophils # 13.6 H Seg Neutrophils # Man Monocytes # (Manual) Eosinophils # (Manual) APTT Heparin Anti-Xa Level ABG pH POC ABG pCO2 POC ABG pO2 ABG Hemoglobin ABG Oxyhemoglobin ABG Sodium ABG Potassium ABG Chloride ABG Glucose Carboxyhemoglobin Sodium Potassium Chloride BUN Creatinine Glucose 114 H POC Glucose Lactic Acid 2.40 H* Calcium 8.1 L Phosphorus AST 112 H ALT 103 H Troponin T C-Reactive Protein Albumin 3.8 L HDL Cholesterol Arterial Blood Glucose Arterial Blood Ionized Calcium Urine WBC (Auto) 09/26/20 09/27/20 09/27/20 15:45 03:33 04:41 WBC Hgb 9.0 L Hct 28.6 L MCV MCH RDW Plt Count Lymph % (Auto) [facility] % (Auto) Lymph # (Auto) [facility] # (Auto) Seg Neutrophils % Seg Neuts % (Manual) Eosinophils % (Manual) Seg Neutrophils # Seg Neutrophils # Man Monocytes # (Manual) Eosinophils # (Manual) APTT Heparin Anti-Xa Level ABG pH POC ABG pCO2 POC ABG pO2 141.6 H ABG Hemoglobin 9.3 L ABG Oxyhemoglobin ABG Sodium ABG Potassium 3.2 L ABG Chloride 108.0 H ABG Glucose 118 H Carboxyhemoglobin Sodium Potassium Chloride BUN Creatinine Glucose POC Glucose Lactic Acid Calcium Phosphorus 2.20 L AST ALT Troponin T C-Reactive Protein 4.30 H Albumin HDL Cholesterol Arterial Blood Glucose 118 H Arterial Blood Ionized Calcium 4.2 L Urine WBC (Auto) 09/27/20 09/27/20 09/28/20 04:41 22:53 04:00 WBC Hgb Hct MCV MCH RDW Plt Count Lymph % (Auto) [facility] % (Auto) Lymph # (Auto) [facility] # (Auto) Seg Neutrophils % Seg Neuts % (Manual) Eosinophils % (Manual) Seg Neutrophils # Seg Neutrophils # Man Monocytes # (Manual) Eosinophils # (Manual) APTT Heparin Anti-Xa Level 0.75 H ABG pH 7.467 H POC ABG pCO2 POC ABG pO2 78.9 L ABG Hemoglobin 9.8 L ABG Oxyhemoglobin ABG Sodium ABG Potassium ABG Chloride ABG Glucose 141 H Carboxyhemoglobin Sodium Potassium Chloride BUN Creatinine Glucose POC Glucose 109 H Lactic Acid Calcium Phosphorus AST ALT Troponin T C-Reactive Protein Albumin HDL Cholesterol Arterial Blood Glucose 141 H Arterial Blood Ionized Calcium Urine WBC (Auto) 09/28/20 09/28/20 09/28/20 05:02 05:02 17:42 WBC 11.9 H Hgb 9.3 L Hct 29.5 L MCV 76 L MCH 24 L RDW 19.4 H Plt Count Lymph % (Auto) [facility] % (Auto) 11.1 H Lymph # (Auto) [facility] # (Auto) 1.3 H Seg Neutrophils % 72.5 H Seg Neuts % (Manual) Eosinophils % (Manual) Seg Neutrophils # 8.6 H Seg Neutrophils # Man Monocytes # (Manual) Eosinophils # (Manual) APTT Heparin Anti-Xa Level ABG pH POC ABG pCO2 POC ABG pO2 ABG Hemoglobin ABG Oxyhemoglobin ABG Sodium ABG Potassium ABG Chloride ABG Glucose Carboxyhemoglobin Sodium Potassium 3.4 L Chloride BUN Creatinine Glucose 126 H POC Glucose 69 L Lactic Acid Calcium Phosphorus AST 129 H ALT 60 H Troponin T C-Reactive Protein Albumin 3.7 L HDL Cholesterol Arterial Blood Glucose Arterial Blood Ionized Calcium Urine WBC (Auto) 09/29/20 09/29/20 09/29/20 04:00 05:53 08:39 WBC Hgb 10.0 L Hct MCV MCH RDW Plt Count Lymph % (Auto) [facility] % (Auto) Lymph # (Auto) [facility] # (Auto) Seg Neutrophils % Seg Neuts % (Manual) Eosinophils % (Manual) Seg Neutrophils # Seg Neutrophils # Man Monocytes # (Manual) Eosinophils # (Manual) APTT Heparin Anti-Xa Level ABG pH POC ABG pCO2 POC ABG pO2 81.1 L ABG Hemoglobin 11.0 L ABG Oxyhemoglobin ABG Sodium ABG Potassium ABG Chloride 110.0 H ABG Glucose 129 H Carboxyhemoglobin Sodium Potassium Chloride BUN Creatinine Glucose POC Glucose 58 L Lactic Acid Calcium Phosphorus AST ALT Troponin T C-Reactive Protein Albumin HDL Cholesterol Arterial Blood Glucose 129 H Arterial Blood Ionized Calcium Urine WBC (Auto) 09/30/20 09/30/20 09/30/20 00:10 10:45 15:05 WBC 12.5 H Hgb 9.9 L Hct MCV 78 L MCH 24 L RDW 21.0 H Plt Count Lymph % (Auto) [facility] % (Auto) 13.5 H Lymph # (Auto) [facility] # (Auto) 1.7 H Seg Neutrophils % Seg Neuts % (Manual) Eosinophils % (Manual) Seg Neutrophils # 8.1 H Seg Neutrophils # Man Monocytes # (Manual) Eosinophils # (Manual) APTT Heparin Anti-Xa Level ABG pH 7.469 H POC ABG pCO2 POC ABG pO2 ABG Hemoglobin 10.4 L ABG Oxyhemoglobin ABG Sodium 146.2 H ABG Potassium ABG Chloride 109.0 H ABG Glucose 155 H Carboxyhemoglobin Sodium Potassium Chloride BUN Creatinine Glucose POC Glucose 131 H Lactic Acid Calcium Phosphorus AST ALT Troponin T C-Reactive Protein Albumin HDL Cholesterol Arterial Blood Glucose 155 H Arterial Blood Ionized Calcium Urine WBC (Auto) 09/30/20 09/30/20 10/01/20 15:05 17:37 00:29 WBC Hgb Hct MCV MCH RDW Plt Count Lymph % (Auto) [facility] % (Auto) Lymph # (Auto) [facility] # (Auto) Seg Neutrophils % Seg Neuts % (Manual) Eosinophils % (Manual) Seg Neutrophils # Seg Neutrophils # Man Monocytes # (Manual) Eosinophils # (Manual) APTT Heparin Anti-Xa Level ABG pH POC ABG pCO2 POC ABG pO2 ABG Hemoglobin ABG Oxyhemoglobin ABG Sodium ABG Potassium ABG Chloride ABG Glucose Carboxyhemoglobin Sodium Potassium Chloride 109.1 H BUN 18 H Creatinine 1.4 H Glucose 122 H POC Glucose 127 H 119 H Lactic Acid Calcium Phosphorus 2.00 L AST ALT Troponin T C-Reactive Protein Albumin HDL Cholesterol Arterial Blood Glucose Arterial Blood Ionized Calcium Urine WBC (Auto) 10/01/20 10/01/20 10/01/20 04:12 05:56 05:56 WBC 14.2 H Hgb 9.7 L Hct MCV 78 L MCH 23 L RDW 21.1 H Plt Count Lymph % (Auto) [facility] % (Auto) Lymph # (Auto) [facility] # (Auto) Seg Neutrophils % Seg Neuts % (Manual) Eosinophils % (Manual) Seg Neutrophils # Seg Neutrophils # Man Monocytes # (Manual) Eosinophils # (Manual) APTT Heparin Anti-Xa Level ABG pH POC ABG pCO2 POC ABG pO2 73.0 L ABG Hemoglobin 10.0 L ABG Oxyhemoglobin 93.7 L ABG Sodium 146.4 H ABG Potassium ABG Chloride 110.0 H ABG Glucose 124 H Carboxyhemoglobin 0.3 L Sodium 147 H Potassium Chloride 109.6 H BUN Creatinine Glucose 109 H POC Glucose Lactic Acid Calcium Phosphorus AST ALT Troponin T C-Reactive Protein Albumin HDL Cholesterol Arterial Blood Glucose 124 H Arterial Blood Ionized Calcium Urine WBC (Auto) 10/01/20 10/01/20 10/02/20 19:21 23:17 05:27 WBC Hgb Hct MCV MCH RDW Plt Count Lymph % (Auto) [facility] % (Auto) Lymph # (Auto) [facility] # (Auto) Seg Neutrophils % Seg Neuts % (Manual) Eosinophils % (Manual) Seg Neutrophils # Seg Neutrophils # Man Monocytes # (Manual) Eosinophils # (Manual) APTT Heparin Anti-Xa Level ABG pH POC ABG pCO2 POC ABG pO2 ABG Hemoglobin ABG Oxyhemoglobin ABG Sodium ABG Potassium ABG Chloride ABG Glucose Carboxyhemoglobin Sodium Potassium Chloride BUN Creatinine Glucose POC Glucose 126 H 160 H 121 H Lactic Acid Calcium Phosphorus AST ALT Troponin T C-Reactive Protein Albumin HDL Cholesterol Arterial Blood Glucose Arterial Blood Ionized Calcium Urine WBC (Auto) 10/02/20 10/02/20 10/02/20 06:48 06:48 11:51 WBC 14.2 H Hgb 9.6 L Hct MCV MCH 25 L RDW 21.7 H Plt Count Lymph % (Auto) [facility] % (Auto) Lymph # (Auto) [facility] # (Auto) Seg Neutrophils % Seg Neuts % (Manual) Eosinophils % (Manual) Seg Neutrophils # Seg Neutrophils # Man Monocytes # (Manual) Eosinophils # (Manual) APTT Heparin Anti-Xa Level ABG pH POC ABG pCO2 POC ABG pO2 ABG Hemoglobin ABG Oxyhemoglobin ABG Sodium ABG Potassium ABG Chloride ABG Glucose Carboxyhemoglobin Sodium 147 H Potassium Chloride 110.4 H BUN Creatinine Glucose 134 H POC Glucose 121 H Lactic Acid Calcium Phosphorus 2.20 L AST ALT Troponin T C-Reactive Protein Albumin HDL Cholesterol Arterial Blood Glucose Arterial Blood Ionized Calcium Urine WBC (Auto) 10/02/20 10/03/20 10/03/20 17:19 00:35 07:24 WBC 12.9 H Hgb 8.9 L Hct 29.6 L MCV MCH 24 L RDW 21.9 H Plt Count Lymph % (Auto) [facility] % (Auto) Lymph # (Auto) [facility] # (Auto) Seg Neutrophils % Seg Neuts % (Manual) Eosinophils % (Manual) Seg Neutrophils # Seg Neutrophils # Man Monocytes # (Manual) Eosinophils # (Manual) APTT Heparin Anti-Xa Level ABG pH POC ABG pCO2 POC ABG pO2 ABG Hemoglobin ABG Oxyhemoglobin ABG Sodium ABG Potassium ABG Chloride ABG Glucose Carboxyhemoglobin Sodium Potassium Chloride BUN Creatinine Glucose POC Glucose 107 H 112 H Lactic Acid Calcium Phosphorus AST ALT Troponin T C-Reactive Protein Albumin HDL Cholesterol Arterial Blood Glucose Arterial Blood Ionized Calcium Urine WBC (Auto) 10/03/20 10/03/20 10/03/20 07:24 17:27 20:19 WBC Hgb Hct MCV MCH RDW Plt Count Lymph % (Auto) [facility] % (Auto) Lymph # (Auto) [facility] # (Auto) Seg Neutrophils % Seg Neuts % (Manual) Eosinophils % (Manual) Seg Neutrophils # Seg Neutrophils # Man Monocytes # (Manual) Eosinophils # (Manual) APTT Heparin Anti-Xa Level 0.18 L ABG pH POC ABG pCO2 POC ABG pO2 ABG Hemoglobin ABG Oxyhemoglobin ABG Sodium ABG Potassium ABG Chloride ABG Glucose Carboxyhemoglobin Sodium 147 H Potassium Chloride 110.4 H BUN Creatinine Glucose 128 H POC Glucose 136 H Lactic Acid Calcium Phosphorus AST ALT Troponin T C-Reactive Protein Albumin HDL Cholesterol Arterial Blood Glucose Arterial Blood Ionized Calcium Urine WBC (Auto) 10/03/20 10/04/20 10/04/20 23:34 04:07 06:12 WBC Hgb Hct MCV MCH RDW Plt Count Lymph % (Auto) [facility] % (Auto) Lymph # (Auto) [facility] # (Auto) Seg Neutrophils % Seg Neuts % (Manual) Eosinophils % (Manual) Seg Neutrophils # Seg Neutrophils # Man Monocytes # (Manual) Eosinophils # (Manual) APTT Heparin Anti-Xa Level 0.25 L ABG pH POC ABG pCO2 POC ABG pO2 ABG Hemoglobin ABG Oxyhemoglobin ABG Sodium ABG Potassium ABG Chloride ABG Glucose Carboxyhemoglobin Sodium Potassium Chloride BUN Creatinine Glucose POC Glucose 119 H 128 H Lactic Acid Calcium Phosphorus AST ALT Troponin T C-Reactive Protein Albumin HDL Cholesterol Arterial Blood Glucose Arterial Blood Ionized Calcium Urine WBC (Auto) 10/04/20 10/04/20 10/05/20 11:38 17:39 00:17 WBC Hgb Hct MCV MCH RDW Plt Count Lymph % (Auto) [facility] % (Auto) Lymph # (Auto) [facility] # (Auto) Seg Neutrophils % Seg Neuts % (Manual) Eosinophils % (Manual) Seg Neutrophils # Seg Neutrophils # Man Monocytes # (Manual) Eosinophils # (Manual) APTT Heparin Anti-Xa Level ABG pH POC ABG pCO2 POC ABG pO2 ABG Hemoglobin ABG Oxyhemoglobin ABG Sodium ABG Potassium ABG Chloride ABG Glucose Carboxyhemoglobin Sodium Potassium Chloride BUN Creatinine Glucose POC Glucose 129 H 136 H 125 H Lactic Acid Calcium Phosphorus AST ALT Troponin T C-Reactive Protein Albumin HDL Cholesterol Arterial Blood Glucose Arterial Blood Ionized Calcium Urine WBC (Auto) 10/05/20 10/05/20 10/05/20 04:17 04:17 05:31 WBC 13.0 H Hgb 9.1 L Hct 29.5 L MCV MCH 25 L RDW 22.2 H Plt Count Lymph % (Auto) [facility] % (Auto) Lymph # (Auto) [facility] # (Auto) Seg Neutrophils % Seg Neuts % (Manual) Eosinophils % (Manual) Seg Neutrophils # Seg Neutrophils # Man Monocytes # (Manual) Eosinophils # (Manual) APTT Heparin Anti-Xa Level ABG pH POC ABG pCO2 POC ABG pO2 ABG Hemoglobin ABG Oxyhemoglobin ABG Sodium ABG Potassium ABG Chloride ABG Glucose Carboxyhemoglobin Sodium Potassium Chloride BUN Creatinine Glucose 148 H POC Glucose 160 H Lactic Acid Calcium Phosphorus AST ALT Troponin T C-Reactive Protein Albumin HDL Cholesterol Arterial Blood Glucose Arterial Blood Ionized Calcium Urine WBC (Auto) 10/05/20 10/05/20 10/05/20 12:09 17:33 23:30 WBC Hgb Hct MCV MCH RDW Plt Count Lymph % (Auto) [facility] % (Auto) Lymph # (Auto) [facility] # (Auto) Seg Neutrophils % Seg Neuts % (Manual) Eosinophils % (Manual) Seg Neutrophils # Seg Neutrophils # Man Monocytes # (Manual) Eosinophils # (Manual) APTT Heparin Anti-Xa Level ABG pH POC ABG pCO2 POC ABG pO2 ABG Hemoglobin ABG Oxyhemoglobin ABG Sodium ABG Potassium ABG Chloride ABG Glucose Carboxyhemoglobin Sodium Potassium Chloride BUN Creatinine Glucose POC Glucose 148 H 135 H 142 H Lactic Acid Calcium Phosphorus AST ALT Troponin T C-Reactive Protein Albumin HDL Cholesterol Arterial Blood Glucose Arterial Blood Ionized Calcium Urine WBC (Auto) 10/06/20 10/06/20 10/06/20 04:37 05:35 10:55 WBC Hgb Hct MCV MCH RDW Plt Count Lymph % (Auto) [facility] % (Auto) Lymph # (Auto) [facility] # (Auto) Seg Neutrophils % Seg Neuts % (Manual) Eosinophils % (Manual) Seg Neutrophils # Seg Neutrophils # Man Monocytes # (Manual) Eosinophils # (Manual) APTT Heparin Anti-Xa Level ABG pH POC ABG pCO2 POC ABG pO2 ABG Hemoglobin ABG Oxyhemoglobin ABG Sodium ABG Potassium ABG Chloride ABG Glucose Carboxyhemoglobin Sodium 136 L Potassium Chloride BUN Creatinine Glucose 184 H POC Glucose 151 H 163 H Lactic Acid Calcium Phosphorus AST 66 H ALT Troponin T C-Reactive Protein Albumin 3.3 L HDL Cholesterol Arterial Blood Glucose Arterial Blood Ionized Calcium Urine WBC (Auto) 10/06/20 10/06/20 10/07/20 16:41 23:31 05:24 WBC Hgb Hct MCV MCH RDW Plt Count Lymph % (Auto) [facility] % (Auto) Lymph # (Auto) [facility] # (Auto) Seg Neutrophils % Seg Neuts % (Manual) Eosinophils % (Manual) Seg Neutrophils # Seg Neutrophils # Man Monocytes # (Manual) Eosinophils # (Manual) APTT Heparin Anti-Xa Level ABG pH POC ABG pCO2 POC ABG pO2 ABG Hemoglobin ABG Oxyhemoglobin ABG Sodium ABG Potassium ABG Chloride ABG Glucose Carboxyhemoglobin Sodium Potassium Chloride BUN Creatinine Glucose POC Glucose 156 H 190 H 194 H Lactic Acid Calcium Phosphorus AST ALT Troponin T C-Reactive Protein Albumin HDL Cholesterol Arterial Blood Glucose Arterial Blood Ionized Calcium Urine WBC (Auto) 10/07/20 10/07/20 10/07/20 11:48 17:50 18:12 WBC 15.7 H Hgb 9.2 L Hct 30.1 L MCV MCH 25 L RDW 24.1 H Plt Count 514 H Lymph % (Auto) [facility] % (Auto) Lymph # (Auto) [facility] # (Auto) Seg Neutrophils % Seg Neuts % (Manual) 71.0 H Eosinophils % (Manual) 5.0 H Seg Neutrophils # Seg Neutrophils # Man 11.1 H Monocytes # (Manual) 1.1 H Eosinophils # (Manual) 0.8 H APTT Heparin Anti-Xa Level ABG pH POC ABG pCO2 POC ABG pO2 ABG Hemoglobin ABG Oxyhemoglobin ABG Sodium ABG Potassium ABG Chloride ABG Glucose Carboxyhemoglobin Sodium Potassium Chloride BUN Creatinine Glucose POC Glucose 203 H 191 H Lactic Acid Calcium Phosphorus AST ALT Troponin T C-Reactive Protein Albumin HDL Cholesterol Arterial Blood Glucose Arterial Blood Ionized Calcium Urine WBC (Auto) 06/21/21 06/22/21 06/22/21 23:40 04:22 04:22 WBC 15.2 H Hgb 9.6 L Hct MCV MCH 24 L RDW 23.3 H Plt Count 517 H Lymph % (Auto) [facility] % (Auto) Lymph # (Auto) [facility] # (Auto) Seg Neutrophils % Seg Neuts % (Manual) Eosinophils % (Manual) Seg Neutrophils # Seg Neutrophils # Man Monocytes # (Manual) Eosinophils # (Manual) APTT Heparin Anti-Xa Level ABG pH POC ABG pCO2 POC ABG pO2 ABG Hemoglobin ABG Oxyhemoglobin ABG Sodium ABG Potassium ABG Chloride ABG Glucose Carboxyhemoglobin Sodium Potassium Chloride BUN 18 H Creatinine Glucose 150 H POC Glucose 191 H Lactic Acid Calcium 10.3 H Phosphorus AST 63 H ALT Troponin T C-Reactive Protein Albumin HDL Cholesterol Arterial Blood Glucose Arterial Blood Ionized Calcium Urine WBC (Auto) 10/08/20 05:41 WBC Hgb Hct MCV MCH RDW Plt Count Lymph % (Auto) [facility] % (Auto) Lymph # (Auto) [facility] # (Auto) Seg Neutrophils % Seg Neuts % (Manual) Eosinophils % (Manual) Seg Neutrophils # Seg Neutrophils # Man Monocytes # (Manual) Eosinophils # (Manual) APTT Heparin Anti-Xa Level ABG pH POC ABG pCO2 POC ABG pO2 ABG Hemoglobin ABG Oxyhemoglobin ABG Sodium ABG Potassium ABG Chloride ABG Glucose Carboxyhemoglobin Sodium Potassium Chloride BUN Creatinine Glucose POC Glucose 125 H Lactic Acid Calcium Phosphorus AST ALT Troponin T C-Reactive Protein Albumin HDL Cholesterol Arterial Blood Glucose Arterial Blood Ionized Calcium Urine WBC (Auto) Chest x-ray: other (none today) Allied health notes reviewed: nursing
--- NOTE | 2020-10-08 11:36 | Procedure Note ---
Date of procedure: 10/08/20 Pre-op diagnosis: Chronic respiratory failure secondary to anoxic brain injury Post-op diagnosis: same Procedure: 1) Open tracheostomy 2) PEG Description of procedure: Pt was placed supine on the OR table. The PEG was performed first. Bite block was placed between the pt's incisors. Endoscope was inserted into the pt's oropharynx and the esophagus intubated under direct vision. Scope was advanced into the stomach and the stomach maximally inflated. An appropriate position for placement of the PEG was selected. Skin and SQ tissue at this point were infiltrated with 5 ml of 1% Lidocaine. A small skin incision was made. The introducer needle was advanced through this incision and then into the stomach on the first pass. Guide wire was inserted into the stomach and the guide wire grasped using the snare. The endoscope and guide wire were then removed via the pt's oropharynx. PEG tubing was attached to the guide wire and external traction applied to the guide wire via the LUQ until the internal bolster was snug up against the gastric and abdominal arellano. The external bolster, clamp and PEG plug were placed. Repeat gastroscopy revealed the internal bolster to be in good position with no bleeding from the gastric puncture site. Final position of the PEG tubing was 4 cm above the skin. Pt's neck was then maximally extended in the midline. Lower face, neck and upper chest were prepped and draped. A transverse collar incision was made. SQ tissue and platysma were transected with the Bovie. Strap muscles were divided in the midline. The upper isthmus of the thyroid was divided with the Bovie. The 2nd tracheal ring was identified and was divided via an "H" type incision. A #8 cuffed, non-fenestrated Shiley tracheostomy tube was inserted into the trachea after the endotracheal tube was withdrawn. The tracheostomy balloon was appropriately inflated. Strap muscles were reapproximated in the midline with interrupted sutures of 3-0 Vicryl. Platysma was reapproximated with interrupted sutures of 3-0 Vicryl. Skin was approximated with interrupted vertical mattress sutures of 3-0 Nylon. A slitted gauze was placed behind the tracheostomy cuff. Finally, the cuff was secured about the neck with a Velcro type strap about the neck. Pt tolerated both procedures well. Pt was taken immediately back to ICU in stable condition. Anesthesia: DEBBIE Surgeon: NONI GILLIS Estimated blood loss: minimal Pathology: none Condition: stable Disposition: ICU
[2020-10-08] MEDS ORDERED: DEXTROSE 5% IN WATER 1,000 ML IV SCH (12:28)
--- NOTE | 2020-10-08 13:24 | Post Anesthesia Evaluation ---
- Post Anesthesia Evaluation Patient Participated: No Airway Patent: Yes Stable Respiratory Function: Yes Nausea/Vomiting: No Temp > 96.8F: Yes Pain Manageable: Yes Adequeate Hydration: Yes Anesthesia Complications: No Patient on Ventilator: Yes Other Comments: Transported to ICU w/ VS monitored and stable, respirations via AMBU. Handoff given to [facility].
[2020-10-08] MEDS: SENNOSIDES 8.6 MG TAB PO SCH (22:39)
[2020-10-09 04:39] LABS: Basophils # (Auto) 0.1 K/mm3 (0.0-0.1); Basophils % (Auto) 0.6 % (0.0-1.8); Eosinophils # (Auto) 0.4 K/mm3 (0.0-0.4); Eosinophils % (Auto) 2.7 % (0.0-4.3); Hematocrit 32.3 % (30.3-42.9); Hemoglobin 9.6 gm/dl (10.1-14.3); Lymphocytes # (Auto) 2.2 K/mm3 (1.2-5.4); Lymphocytes % (Auto) 15.4 % (13.4-35.0); Mean Corpuscular HGB Conc 30 % (30-34); Mean Corpuscular Volume 80 fl (79-97); Monocytes # (Auto) 1.5 K/mm3 (0.0-0.8); Monocytes % (Auto) 10.4 % (0.0-7.3); Platelet Count 543 K/mm3 (140-440); Red Blood Count 4.03 M/mm3 (3.65-5.03); Red Cell Distribution Width 23.5 % (13.2-15.2)
[2020-10-09 04:49] LABS: BUN/Creatinine Ratio 23; Blood Urea Nitrogen 18 mg/dL (7-17); Calcium 9.7 mg/dL (8.4-10.2); Hemolysis Index 24
[2020-10-09] MEDS: HEPARIN 5,000 UNIT/1 ML VIAL SUB-Q SCH ×3 (06:08→21:15)
[2020-10-09] MEDS: levETIRAcetam 500 MG/5 ML ORAL LIQD PO SCH ×2 (10:34→21:14)
[2020-10-09] MEDS: carvediloL 12.5 MG TAB PO SCH ×2 (10:34→21:14)
[2020-10-09] MEDS: MODAFINIL 100 MG TAB PO SCH (10:34)
[2020-10-09] MEDS: ASPIRIN 81 MG TAB CHEW PO SCH (10:34)
[2020-10-09] MEDS: FAMOTIDINE 20 MG TAB PO SCH ×2 (10:35→21:14)
[2020-10-09] MEDS: LOSARTAN 25 MG TAB PO SCH (10:35)
--- NOTE | 2020-10-09 11:00 | Progress Note ---
Assessment and Plan Cardiac arrest with return of spontaneous circulation. Acute respiratory failure, on mechanical ventilatory support. Acute toxic metabolic encephalopathy. Possible anoxic encephalopathy. Obesity. History of obesity hypoventilation syndrome. Leukocytosis. Likely aspiration pneumonia, bilateral. Anemia that is microcytic. Lactic acidosis. Elevated serum transaminases. Non-ST elevation myocardial infarction - follow am CXR - continue scopolamine patch for secretion control - LTAC evaluation ongoing - continue care as below otherwise; - continue to wean supplemental oxygen for target O2 sat's > 90% acutely - VAP bundle addressed - continue lung protective strategies - continue bronchodilators with pulmonary hygiene per RT - wean per pulmonary driven protocols otherwise - continue Daily SAT and SBT assessment as tolerated - continue accuchecks with glycemic control per SSI (While critically ill target blood glucose of 140-180 mg/dL; avoid hypoglycemia) - sedation prn for target RASS 0 to -1 - avoid nephrotoxins, renally dose all medications - continue to avoid benzodiazepine's, reduce the possibility of delirium - completed AB's per ID rec's - prn analgesia per CPOT score - Maintenance of sleep-wake cycle, avoid delirium - continue enteral nutritional support at goal rate as tolerated - G.I. & VTE prophylaxis - PT/OT/ROM exercises - continue mobility protocols for pressure ulcer prophylaxis - Monitor hemodynamics closely - continue other care per attending / other consultants - discharge planning ongoing concurrently COVID SPECIFIC INTERVENTIONS - COVID tests result was negative .... Re-evaluate in am & prn CONDITION: CRITICAL PROGNOSIS: GUARDED CODE STATUS: FULL CODE The high probability of a clinically significant, sudden or life-threatening deterioration of the [respiratory, cardiovascular & neurologic] system(s) required my full and direct attention, intervention and personal management. The aggregate critical care time was [35] minutes without overlap. Time includes spent on; [x] Data Review and interpretation [x] Patient assessment and monitoring of vital signs [x] Documentation [x] Medication orders and management Subjective Date of service: 10/09/20 Principal diagnosis: Cardiac arrest; Ac. respiratory failure; Anoxic encephalopathy; PNA; NSTEMI Interval history: Patient is seen today for: Cardiac arrest with ROSC; Acute respiratory failure; Anoxic encephalopathy; Obesity; OHS; Aspiration pneumonia; NSTEMI Seen and examined at bedside; 24hour events reviewed; nursing and respiratory care staff consulted; no adverse overnight events reported to me; resting in bed; remains on MVS; failed SBT earlier today after a couple hours; no emesis or overt aspiration; afebrile Objective Vital Signs - 12hr 10/08/20 10/08/20 10/09/20 23:00 23:30 00:00 Temperature 98.9 F Pulse Rate 104 H 108 H 118 H Pulse Rate [ 103 H From Monitor] Respiratory 14 16 12 Rate Blood Pressure 114/56 111/58 121/55 O2 Sat by Pulse 98 98 100 Oximetry O2 Sat by Pulse Oximetry [ Assessment] 10/09/20 10/09/20 10/09/20 00:30 01:00 01:30 Temperature Pulse Rate 105 H 108 H 116 H Pulse Rate [ From Monitor] Respiratory 15 16 23 Rate Blood Pressure 115/62 135/71 126/68 O2 Sat by Pulse 96 99 97 Oximetry O2 Sat by Pulse Oximetry [ Assessment] 10/09/20 10/09/20 10/09/20 02:00 02:30 03:00 Temperature Pulse Rate 119 H 113 H 103 H Pulse Rate [ From Monitor] Respiratory 25 H 22 20 Rate Blood Pressure 108/61 96/49 98/53 O2 Sat by Pulse 98 99 Oximetry O2 Sat by Pulse Oximetry [ Assessment] 10/09/20 10/09/20 10/09/20 03:30 04:00 04:27 Temperature 100.1 F H Pulse Rate 106 H 108 H 118 H Pulse Rate [ 103 H From Monitor] Respiratory 18 22 Rate Blood Pressure 89/53 100/64 109/58 O2 Sat by Pulse 95 100 Oximetry O2 Sat by Pulse Oximetry [ Assessment] 10/09/20 10/09/20 10/09/20 04:28 04:30 05:00 Temperature Pulse Rate 117 H 112 H Pulse Rate [ From Monitor] Respiratory 22 13 Rate Blood Pressure 110/62 114/66 O2 Sat by Pulse 97 96 Oximetry O2 Sat by Pulse 99 Oximetry [ Assessment] 10/09/20 10/09/20 10/09/20 05:30 06:00 06:30 Temperature Pulse Rate 115 H 116 H 107 H Pulse Rate [ From Monitor] Respiratory 16 17 16 Rate Blood Pressure 114/59 109/63 125/66 O2 Sat by Pulse 97 100 99 Oximetry O2 Sat by Pulse Oximetry [ Assessment] 10/09/20 10/09/20 10/09/20 07:01 07:13 07:30 Temperature 98.6 F Pulse Rate 97 H 97 H Pulse Rate [ From Monitor] Respiratory 23 12 Rate Blood Pressure 102/50 99/55 O2 Sat by Pulse 97 Oximetry O2 Sat by Pulse Oximetry [ Assessment] 10/09/20 10/09/20 10/09/20 07:34 07:37 08:00 Temperature Pulse Rate 107 H 97 H Pulse Rate [ From Monitor] Respiratory 21 Rate Blood Pressure 125/66 104/55 O2 Sat by Pulse 99 98 Oximetry O2 Sat by Pulse 98 Oximetry [ Assessment] 10/09/20 10/09/20 10/09/20 08:30 09:00 09:30 Temperature Pulse Rate 101 H 103 H 96 H Pulse Rate [ From Monitor] Respiratory 23 24 15 Rate Blood Pressure 124/62 118/58 113/61 O2 Sat by Pulse 99 100 98 Oximetry O2 Sat by Pulse Oximetry [ Assessment] 10/09/20 10/09/20 10/09/20 10:00 10:30 10:34 Temperature Pulse Rate 95 H 104 H 105 H Pulse Rate [ From Monitor] Respiratory 18 16 Rate Blood Pressure 96/55 122/72 122/72 O2 Sat by Pulse 96 99 Oximetry O2 Sat by Pulse Oximetry [ Assessment] Constitutional: no acute distress, other (middle aged obese female with normal respiratory effort at rest on MVS) Eyes: non-icteric ENT: oropharynx moist, other (+ midline tracheostomy) Neck: supple, no lymphadenopathy, no JVD Effort: mildly labored Ascultation: Bilateral: rhonchi Percussion: Bilateral: not dull Cardiovascular: regular rate and rhythm, other (S1,S2) Gastrointestinal: normoactive bowel sounds, soft, non-tender, non-distended Integumentary: normal Extremities: no cyanosis, no edema, pulses normal, no ischemia or petechiae Neurologic: pupils equal and round, unable to assess Psychiatric: other (unable to assess re: AMS) CBC and BMP: 10/09/20 04:07 10/09/20 04:07 ABG, PT/INR, D-dimer: ABG ABG pH 7.424 (7.320-7.450) 10/01/20 04:12 POC ABG pCO2 41.6 mmHg (32.0-48.0) 10/01/20 04:12 POC ABG pO2 73.0 mmHg (83-108) L 10/01/20 04:12 POC ABG HCO3 26.6 10/01/20 04:12 ABG O2 Saturation 94.3 (0-100) 10/01/20 04:12 PT/INR, D-dimer PT 13.7 Sec. (12.2-14.9) 09/25/20 18:15 INR 1.00 (0.87-1.13) 09/25/20 18:15 Abnormal lab findings: Abnormal Labs 09/25/20 09/25/20 09/25/20 17:19 17:21 18:15 WBC 13.8 H Hgb 9.9 L Hct MCV 76 L MCH 23 L RDW 17.9 H Plt Count Lymph % (Auto) [place] % (Auto) Lymph # (Auto) [place] # (Auto) Seg Neutrophils % 78.6 H Seg Neuts % (Manual) Eosinophils % (Manual) Seg Neutrophils # 10.8 H Seg Neutrophils # Man Monocytes # (Manual) Eosinophils # (Manual) APTT Heparin Anti-Xa Level ABG pH POC ABG pCO2 26.2 L POC ABG pO2 554.5 H ABG Hemoglobin 9.0 L ABG Oxyhemoglobin 99.0 H ABG Sodium 134.5 L ABG Potassium ABG Chloride ABG Glucose 220 H Carboxyhemoglobin Sodium Potassium Chloride BUN Creatinine Glucose POC Glucose Lactic Acid Calcium Phosphorus AST ALT Troponin T C-Reactive Protein Albumin HDL Cholesterol Arterial Blood Glucose 220 H Arterial Blood Ionized Calcium 4.2 L Urine WBC (Auto) 14.0 H 09/25/20 09/25/20 09/25/20 18:15 18:15 18:15 WBC Hgb Hct MCV MCH RDW Plt Count Lymph % (Auto) [place] % (Auto) Lymph # (Auto) [place] # (Auto) Seg Neutrophils % Seg Neuts % (Manual) Eosinophils % (Manual) Seg Neutrophils # Seg Neutrophils # Man Monocytes # (Manual) Eosinophils # (Manual) APTT 21.1 L Heparin Anti-Xa Level ABG pH POC ABG pCO2 POC ABG pO2 ABG Hemoglobin ABG Oxyhemoglobin ABG Sodium ABG Potassium ABG Chloride ABG Glucose Carboxyhemoglobin Sodium Potassium Chloride BUN Creatinine Glucose 113 H POC Glucose Lactic Acid 2.60 H* Calcium Phosphorus AST 162 H ALT 131 H Troponin T 0.096 H C-Reactive Protein Albumin HDL Cholesterol Arterial Blood Glucose Arterial Blood Ionized Calcium Urine WBC (Auto) 06/01/0709/25/20 09/26/20 23:13 23:13 03:15 WBC Hgb Hct MCV MCH RDW Plt Count Lymph % (Auto) [place] % (Auto) Lymph # (Auto) [place] # (Auto) Seg Neutrophils % Seg Neuts % (Manual) Eosinophils % (Manual) Seg Neutrophils # Seg Neutrophils # Man Monocytes # (Manual) Eosinophils # (Manual) APTT Heparin Anti-Xa Level ABG pH 7.451 H POC ABG pCO2 27.1 L POC ABG pO2 ABG Hemoglobin 10.4 L ABG Oxyhemoglobin ABG Sodium 135.2 L ABG Potassium ABG Chloride 108.0 H ABG Glucose 137 H Carboxyhemoglobin Sodium Potassium Chloride BUN Creatinine Glucose POC Glucose Lactic Acid 2.90 H* Calcium Phosphorus AST ALT Troponin T 0.170 H* D C-Reactive Protein Albumin HDL Cholesterol 60 H Arterial Blood Glucose 137 H Arterial Blood Ionized Calcium 4.2 L Urine WBC (Auto) 09/26/20 09/26/20 09/26/20 05:09 05:09 05:09 WBC 15.8 H Hgb 10.0 L Hct MCV 77 L MCH 24 L RDW 17.8 H Plt Count Lymph % (Auto) 7.2 L [place] % (Auto) Lymph # (Auto) 1.1 L [place] # (Auto) 1.0 H Seg Neutrophils % 86.1 H Seg Neuts % (Manual) Eosinophils % (Manual) Seg Neutrophils # 13.6 H Seg Neutrophils # Man Monocytes # (Manual) Eosinophils # (Manual) APTT Heparin Anti-Xa Level ABG pH POC ABG pCO2 POC ABG pO2 ABG Hemoglobin ABG Oxyhemoglobin ABG Sodium ABG Potassium ABG Chloride ABG Glucose Carboxyhemoglobin Sodium Potassium Chloride BUN Creatinine Glucose 114 H POC Glucose Lactic Acid 2.40 H* Calcium 8.1 L Phosphorus AST 112 H ALT 103 H Troponin T C-Reactive Protein Albumin 3.8 L HDL Cholesterol Arterial Blood Glucose Arterial Blood Ionized Calcium Urine WBC (Auto) 09/26/20 09/27/20 09/27/20 15:45 03:33 04:41 WBC Hgb 9.0 L Hct 28.6 L MCV MCH RDW Plt Count Lymph % (Auto) [place] % (Auto) Lymph # (Auto) [place] # (Auto) Seg Neutrophils % Seg Neuts % (Manual) Eosinophils % (Manual) Seg Neutrophils # Seg Neutrophils # Man Monocytes # (Manual) Eosinophils # (Manual) APTT Heparin Anti-Xa Level ABG pH POC ABG pCO2 POC ABG pO2 141.6 H ABG Hemoglobin 9.3 L ABG Oxyhemoglobin ABG Sodium ABG Potassium 3.2 L ABG Chloride 108.0 H ABG Glucose 118 H Carboxyhemoglobin Sodium Potassium Chloride BUN Creatinine Glucose POC Glucose Lactic Acid Calcium Phosphorus 2.20 L AST ALT Troponin T C-Reactive Protein 4.30 H Albumin HDL Cholesterol Arterial Blood Glucose 118 H Arterial Blood Ionized Calcium 4.2 L Urine WBC (Auto) 09/27/20 09/27/20 09/28/20 04:41 22:53 04:00 WBC Hgb Hct MCV MCH RDW Plt Count Lymph % (Auto) [place] % (Auto) Lymph # (Auto) [place] # (Auto) Seg Neutrophils % Seg Neuts % (Manual) Eosinophils % (Manual) Seg Neutrophils # Seg Neutrophils # Man Monocytes # (Manual) Eosinophils # (Manual) APTT Heparin Anti-Xa Level 0.75 H ABG pH 7.467 H POC ABG pCO2 POC ABG pO2 78.9 L ABG Hemoglobin 9.8 L ABG Oxyhemoglobin ABG Sodium ABG Potassium ABG Chloride ABG Glucose 141 H Carboxyhemoglobin Sodium Potassium Chloride BUN Creatinine Glucose POC Glucose 109 H Lactic Acid Calcium Phosphorus AST ALT Troponin T C-Reactive Protein Albumin HDL Cholesterol Arterial Blood Glucose 141 H Arterial Blood Ionized Calcium Urine WBC (Auto) 09/28/20 09/28/20 09/28/20 05:02 05:02 17:42 WBC 11.9 H Hgb 9.3 L Hct 29.5 L MCV 76 L MCH 24 L RDW 19.4 H Plt Count Lymph % (Auto) [place] % (Auto) 11.1 H Lymph # (Auto) [place] # (Auto) 1.3 H Seg Neutrophils % 72.5 H Seg Neuts % (Manual) Eosinophils % (Manual) Seg Neutrophils # 8.6 H Seg Neutrophils # Man Monocytes # (Manual) Eosinophils # (Manual) APTT Heparin Anti-Xa Level ABG pH POC ABG pCO2 POC ABG pO2 ABG Hemoglobin ABG Oxyhemoglobin ABG Sodium ABG Potassium ABG Chloride ABG Glucose Carboxyhemoglobin Sodium Potassium 3.4 L Chloride BUN Creatinine Glucose 126 H POC Glucose 69 L Lactic Acid Calcium Phosphorus AST 129 H ALT 60 H Troponin T C-Reactive Protein Albumin 3.7 L HDL Cholesterol Arterial Blood Glucose Arterial Blood Ionized Calcium Urine WBC (Auto) 09/29/20 09/29/20 09/29/20 04:00 05:53 08:39 WBC Hgb 10.0 L Hct MCV MCH RDW Plt Count Lymph % (Auto) [place] % (Auto) Lymph # (Auto) [place] # (Auto) Seg Neutrophils % Seg Neuts % (Manual) Eosinophils % (Manual) Seg Neutrophils # Seg Neutrophils # Man Monocytes # (Manual) Eosinophils # (Manual) APTT Heparin Anti-Xa Level ABG pH POC ABG pCO2 POC ABG pO2 81.1 L ABG Hemoglobin 11.0 L ABG Oxyhemoglobin ABG Sodium ABG Potassium ABG Chloride 110.0 H ABG Glucose 129 H Carboxyhemoglobin Sodium Potassium Chloride BUN Creatinine Glucose POC Glucose 58 L Lactic Acid Calcium Phosphorus AST ALT Troponin T C-Reactive Protein Albumin HDL Cholesterol Arterial Blood Glucose 129 H Arterial Blood Ionized Calcium Urine WBC (Auto) 09/30/20 09/30/20 09/30/20 00:10 10:45 15:05 WBC 12.5 H Hgb 9.9 L Hct MCV 78 L MCH 24 L RDW 21.0 H Plt Count Lymph % (Auto) [place] % (Auto) 13.5 H Lymph # (Auto) [place] # (Auto) 1.7 H Seg Neutrophils % Seg Neuts % (Manual) Eosinophils % (Manual) Seg Neutrophils # 8.1 H Seg Neutrophils # Man Monocytes # (Manual) Eosinophils # (Manual) APTT Heparin Anti-Xa Level ABG pH 7.469 H POC ABG pCO2 POC ABG pO2 ABG Hemoglobin 10.4 L ABG Oxyhemoglobin ABG Sodium 146.2 H ABG Potassium ABG Chloride 109.0 H ABG Glucose 155 H Carboxyhemoglobin Sodium Potassium Chloride BUN Creatinine Glucose POC Glucose 131 H Lactic Acid Calcium Phosphorus AST ALT Troponin T C-Reactive Protein Albumin HDL Cholesterol Arterial Blood Glucose 155 H Arterial Blood Ionized Calcium Urine WBC (Auto) 09/30/20 09/30/20 10/01/20 15:05 17:37 00:29 WBC Hgb Hct MCV MCH RDW Plt Count Lymph % (Auto) [place] % (Auto) Lymph # (Auto) [place] # (Auto) Seg Neutrophils % Seg Neuts % (Manual) Eosinophils % (Manual) Seg Neutrophils # Seg Neutrophils # Man Monocytes # (Manual) Eosinophils # (Manual) APTT Heparin Anti-Xa Level ABG pH POC ABG pCO2 POC ABG pO2 ABG Hemoglobin ABG Oxyhemoglobin ABG Sodium ABG Potassium ABG Chloride ABG Glucose Carboxyhemoglobin Sodium Potassium Chloride 109.1 H BUN 18 H Creatinine 1.4 H Glucose 122 H POC Glucose 127 H 119 H Lactic Acid Calcium Phosphorus 2.00 L AST ALT Troponin T C-Reactive Protein Albumin HDL Cholesterol Arterial Blood Glucose Arterial Blood Ionized Calcium Urine WBC (Auto) 10/01/20 10/01/20 10/01/20 04:12 05:56 05:56 WBC 14.2 H Hgb 9.7 L Hct MCV 78 L MCH 23 L RDW 21.1 H Plt Count Lymph % (Auto) [place] % (Auto) Lymph # (Auto) [place] # (Auto) Seg Neutrophils % Seg Neuts % (Manual) Eosinophils % (Manual) Seg Neutrophils # Seg Neutrophils # Man Monocytes # (Manual) Eosinophils # (Manual) APTT Heparin Anti-Xa Level ABG pH POC ABG pCO2 POC ABG pO2 73.0 L ABG Hemoglobin 10.0 L ABG Oxyhemoglobin 93.7 L ABG Sodium 146.4 H ABG Potassium ABG Chloride 110.0 H ABG Glucose 124 H Carboxyhemoglobin 0.3 L Sodium 147 H Potassium Chloride 109.6 H BUN Creatinine Glucose 109 H POC Glucose Lactic Acid Calcium Phosphorus AST ALT Troponin T C-Reactive Protein Albumin HDL Cholesterol Arterial Blood Glucose 124 H Arterial Blood Ionized Calcium Urine WBC (Auto) 10/01/20 10/01/20 10/02/20 19:21 23:17 05:27 WBC Hgb Hct MCV MCH RDW Plt Count Lymph % (Auto) [place] % (Auto) Lymph # (Auto) [place] # (Auto) Seg Neutrophils % Seg Neuts % (Manual) Eosinophils % (Manual) Seg Neutrophils # Seg Neutrophils # Man Monocytes # (Manual) Eosinophils # (Manual) APTT Heparin Anti-Xa Level ABG pH POC ABG pCO2 POC ABG pO2 ABG Hemoglobin ABG Oxyhemoglobin ABG Sodium ABG Potassium ABG Chloride ABG Glucose Carboxyhemoglobin Sodium Potassium Chloride BUN Creatinine Glucose POC Glucose 126 H 160 H 121 H Lactic Acid Calcium Phosphorus AST ALT Troponin T C-Reactive Protein Albumin HDL Cholesterol Arterial Blood Glucose Arterial Blood Ionized Calcium Urine WBC (Auto) 10/02/20 10/02/20 10/02/20 06:48 06:48 11:51 WBC 14.2 H Hgb 9.6 L Hct MCV MCH 25 L RDW 21.7 H Plt Count Lymph % (Auto) [place] % (Auto) Lymph # (Auto) [place] # (Auto) Seg Neutrophils % Seg Neuts % (Manual) Eosinophils % (Manual) Seg Neutrophils # Seg Neutrophils # Man Monocytes # (Manual) Eosinophils # (Manual) APTT Heparin Anti-Xa Level ABG pH POC ABG pCO2 POC ABG pO2 ABG Hemoglobin ABG Oxyhemoglobin ABG Sodium ABG Potassium ABG Chloride ABG Glucose Carboxyhemoglobin Sodium 147 H Potassium Chloride 110.4 H BUN Creatinine Glucose 134 H POC Glucose 121 H Lactic Acid Calcium Phosphorus 2.20 L AST ALT Troponin T C-Reactive Protein Albumin HDL Cholesterol Arterial Blood Glucose Arterial Blood Ionized Calcium Urine WBC (Auto) 10/02/20 10/03/20 10/03/20 17:19 00:35 07:24 WBC 12.9 H Hgb 8.9 L Hct 29.6 L MCV MCH 24 L RDW 21.9 H Plt Count Lymph % (Auto) [place] % (Auto) Lymph # (Auto) [place] # (Auto) Seg Neutrophils % Seg Neuts % (Manual) Eosinophils % (Manual) Seg Neutrophils # Seg Neutrophils # Man Monocytes # (Manual) Eosinophils # (Manual) APTT Heparin Anti-Xa Level ABG pH POC ABG pCO2 POC ABG pO2 ABG Hemoglobin ABG Oxyhemoglobin ABG Sodium ABG Potassium ABG Chloride ABG Glucose Carboxyhemoglobin Sodium Potassium Chloride BUN Creatinine Glucose POC Glucose 107 H 112 H Lactic Acid Calcium Phosphorus AST ALT Troponin T C-Reactive Protein Albumin HDL Cholesterol Arterial Blood Glucose Arterial Blood Ionized Calcium Urine WBC (Auto) 10/03/20 10/03/20 10/03/20 07:24 17:27 20:19 WBC Hgb Hct MCV MCH RDW Plt Count Lymph % (Auto) [place] % (Auto) Lymph # (Auto) [place] # (Auto) Seg Neutrophils % Seg Neuts % (Manual) Eosinophils % (Manual) Seg Neutrophils # Seg Neutrophils # Man Monocytes # (Manual) Eosinophils # (Manual) APTT Heparin Anti-Xa Level 0.18 L ABG pH POC ABG pCO2 POC ABG pO2 ABG Hemoglobin ABG Oxyhemoglobin ABG Sodium ABG Potassium ABG Chloride ABG Glucose Carboxyhemoglobin Sodium 147 H Potassium Chloride 110.4 H BUN Creatinine Glucose 128 H POC Glucose 136 H Lactic Acid Calcium Phosphorus AST ALT Troponin T C-Reactive Protein Albumin HDL Cholesterol Arterial Blood Glucose Arterial Blood Ionized Calcium Urine WBC (Auto) 10/03/20 10/04/20 10/04/20 23:34 04:07 06:12 WBC Hgb Hct MCV MCH RDW Plt Count Lymph % (Auto) [place] % (Auto) Lymph # (Auto) [place] # (Auto) Seg Neutrophils % Seg Neuts % (Manual) Eosinophils % (Manual) Seg Neutrophils # Seg Neutrophils # Man Monocytes # (Manual) Eosinophils # (Manual) APTT Heparin Anti-Xa Level 0.25 L ABG pH POC ABG pCO2 POC ABG pO2 ABG Hemoglobin ABG Oxyhemoglobin ABG Sodium ABG Potassium ABG Chloride ABG Glucose Carboxyhemoglobin Sodium Potassium Chloride BUN Creatinine Glucose POC Glucose 119 H 128 H Lactic Acid Calcium Phosphorus AST ALT Troponin T C-Reactive Protein Albumin HDL Cholesterol Arterial Blood Glucose Arterial Blood Ionized Calcium Urine WBC (Auto) 10/04/20 10/04/20 10/05/20 11:38 17:39 00:17 WBC Hgb Hct MCV MCH RDW Plt Count Lymph % (Auto) [place] % (Auto) Lymph # (Auto) [place] # (Auto) Seg Neutrophils % Seg Neuts % (Manual) Eosinophils % (Manual) Seg Neutrophils # Seg Neutrophils # Man Monocytes # (Manual) Eosinophils # (Manual) APTT Heparin Anti-Xa Level ABG pH POC ABG pCO2 POC ABG pO2 ABG Hemoglobin ABG Oxyhemoglobin ABG Sodium ABG Potassium ABG Chloride ABG Glucose Carboxyhemoglobin Sodium Potassium Chloride BUN Creatinine Glucose POC Glucose 129 H 136 H 125 H Lactic Acid Calcium Phosphorus AST ALT Troponin T C-Reactive Protein Albumin HDL Cholesterol Arterial Blood Glucose Arterial Blood Ionized Calcium Urine WBC (Auto) 10/05/20 10/05/20 10/05/20 04:17 04:17 05:31 WBC 13.0 H Hgb 9.1 L Hct 29.5 L MCV MCH 25 L RDW 22.2 H Plt Count Lymph % (Auto) [place] % (Auto) Lymph # (Auto) [place] # (Auto) Seg Neutrophils % Seg Neuts % (Manual) Eosinophils % (Manual) Seg Neutrophils # Seg Neutrophils # Man Monocytes # (Manual) Eosinophils # (Manual) APTT Heparin Anti-Xa Level ABG pH POC ABG pCO2 POC ABG pO2 ABG Hemoglobin ABG Oxyhemoglobin ABG Sodium ABG Potassium ABG Chloride ABG Glucose Carboxyhemoglobin Sodium Potassium Chloride BUN Creatinine Glucose 148 H POC Glucose 160 H Lactic Acid Calcium Phosphorus AST ALT Troponin T C-Reactive Protein Albumin HDL Cholesterol Arterial Blood Glucose Arterial Blood Ionized Calcium Urine WBC (Auto) 10/05/20 10/05/20 10/05/20 12:09 17:33 23:30 WBC Hgb Hct MCV MCH RDW Plt Count Lymph % (Auto) [place] % (Auto) Lymph # (Auto) [place] # (Auto) Seg Neutrophils % Seg Neuts % (Manual) Eosinophils % (Manual) Seg Neutrophils # Seg Neutrophils # Man Monocytes # (Manual) Eosinophils # (Manual) APTT Heparin Anti-Xa Level ABG pH POC ABG pCO2 POC ABG pO2 ABG Hemoglobin ABG Oxyhemoglobin ABG Sodium ABG Potassium ABG Chloride ABG Glucose Carboxyhemoglobin Sodium Potassium Chloride BUN Creatinine Glucose POC Glucose 148 H 135 H 142 H Lactic Acid Calcium Phosphorus AST ALT Troponin T C-Reactive Protein Albumin HDL Cholesterol Arterial Blood Glucose Arterial Blood Ionized Calcium Urine WBC (Auto) 10/06/20 10/06/20 10/06/20 04:37 05:35 10:55 WBC Hgb Hct MCV MCH RDW Plt Count Lymph % (Auto) [place] % (Auto) Lymph # (Auto) [place] # (Auto) Seg Neutrophils % Seg Neuts % (Manual) Eosinophils % (Manual) Seg Neutrophils # Seg Neutrophils # Man Monocytes # (Manual) Eosinophils # (Manual) APTT Heparin Anti-Xa Level ABG pH POC ABG pCO2 POC ABG pO2 ABG Hemoglobin ABG Oxyhemoglobin ABG Sodium ABG Potassium ABG Chloride ABG Glucose Carboxyhemoglobin Sodium 136 L Potassium Chloride BUN Creatinine Glucose 184 H POC Glucose 151 H 163 H Lactic Acid Calcium Phosphorus AST 66 H ALT Troponin T C-Reactive Protein Albumin 3.3 L HDL Cholesterol Arterial Blood Glucose Arterial Blood Ionized Calcium Urine WBC (Auto) 10/06/20 10/06/20 10/07/20 16:41 23:31 05:24 WBC Hgb Hct MCV MCH RDW Plt Count Lymph % (Auto) [place] % (Auto) Lymph # (Auto) [place] # (Auto) Seg Neutrophils % Seg Neuts % (Manual) Eosinophils % (Manual) Seg Neutrophils # Seg Neutrophils # Man Monocytes # (Manual) Eosinophils # (Manual) APTT Heparin Anti-Xa Level ABG pH POC ABG pCO2 POC ABG pO2 ABG Hemoglobin ABG Oxyhemoglobin ABG Sodium ABG Potassium ABG Chloride ABG Glucose Carboxyhemoglobin Sodium Potassium Chloride BUN Creatinine Glucose POC Glucose 156 H 190 H 194 H Lactic Acid Calcium Phosphorus AST ALT Troponin T C-Reactive Protein Albumin HDL Cholesterol Arterial Blood Glucose Arterial Blood Ionized Calcium Urine WBC (Auto) 10/07/20 10/07/20 10/07/20 11:48 17:50 18:12 WBC 15.7 H Hgb 9.2 L Hct 30.1 L MCV MCH 25 L RDW 24.1 H Plt Count 514 H Lymph % (Auto) [place] % (Auto) Lymph # (Auto) [place] # (Auto) Seg Neutrophils % Seg Neuts % (Manual) 71.0 H Eosinophils % (Manual) 5.0 H Seg Neutrophils # Seg Neutrophils # Man 11.1 H Monocytes # (Manual) 1.1 H Eosinophils # (Manual) 0.8 H APTT Heparin Anti-Xa Level ABG pH POC ABG pCO2 POC ABG pO2 ABG Hemoglobin ABG Oxyhemoglobin ABG Sodium ABG Potassium ABG Chloride ABG Glucose Carboxyhemoglobin Sodium Potassium Chloride BUN Creatinine Glucose POC Glucose 203 H 191 H Lactic Acid Calcium Phosphorus AST ALT Troponin T C-Reactive Protein Albumin HDL Cholesterol Arterial Blood Glucose Arterial Blood Ionized Calcium Urine WBC (Auto) 10/07/20 10/08/20 10/08/20 23:40 04:22 04:22 WBC 15.2 H Hgb 9.6 L Hct MCV MCH 24 L RDW 23.3 H Plt Count 517 H Lymph % (Auto) [place] % (Auto) Lymph # (Auto) [place] # (Auto) Seg Neutrophils % Seg Neuts % (Manual) Eosinophils % (Manual) Seg Neutrophils # Seg Neutrophils # Man Monocytes # (Manual) Eosinophils # (Manual) APTT Heparin Anti-Xa Level ABG pH POC ABG pCO2 POC ABG pO2 ABG Hemoglobin ABG Oxyhemoglobin ABG Sodium ABG Potassium ABG Chloride ABG Glucose Carboxyhemoglobin Sodium Potassium Chloride BUN 18 H Creatinine Glucose 150 H POC Glucose 191 H Lactic Acid Calcium 10.3 H Phosphorus AST 63 H ALT Troponin T C-Reactive Protein Albumin HDL Cholesterol Arterial Blood Glucose Arterial Blood Ionized Calcium Urine WBC (Auto) 10/08/20 10/08/20 10/08/20 05:41 11:53 16:17 WBC Hgb Hct MCV MCH RDW Plt Count Lymph % (Auto) [place] % (Auto) Lymph # (Auto) [place] # (Auto) Seg Neutrophils % Seg Neuts % (Manual) Eosinophils % (Manual) Seg Neutrophils # Seg Neutrophils # Man Monocytes # (Manual) Eosinophils # (Manual) APTT Heparin Anti-Xa Level ABG pH POC ABG pCO2 POC ABG pO2 ABG Hemoglobin ABG Oxyhemoglobin ABG Sodium ABG Potassium ABG Chloride ABG Glucose Carboxyhemoglobin Sodium Potassium Chloride BUN Creatinine Glucose POC Glucose 125 H 116 H 141 H Lactic Acid Calcium Phosphorus AST ALT Troponin T C-Reactive Protein Albumin HDL Cholesterol Arterial Blood Glucose Arterial Blood Ionized Calcium Urine WBC (Auto) 10/08/20 10/09/20 10/09/20 23:24 04:07 04:07 WBC 14.2 H Hgb 9.6 L Hct MCV MCH 24 L RDW 23.5 H Plt Count 543 H Lymph % (Auto) [place] % (Auto) 10.4 H Lymph # (Auto) [place] # (Auto) 1.5 H Seg Neutrophils % 70.9 H Seg Neuts % (Manual) Eosinophils % (Manual) Seg Neutrophils # 10.1 H Seg Neutrophils # Man Monocytes # (Manual) Eosinophils # (Manual) APTT Heparin Anti-Xa Level ABG pH POC ABG pCO2 POC ABG pO2 ABG Hemoglobin ABG Oxyhemoglobin ABG Sodium ABG Potassium ABG Chloride ABG Glucose Carboxyhemoglobin Sodium Potassium Chloride BUN 18 H Creatinine Glucose 152 H POC Glucose 114 H Lactic Acid Calcium Phosphorus AST ALT Troponin T C-Reactive Protein Albumin HDL Cholesterol Arterial Blood Glucose Arterial Blood Ionized Calcium Urine WBC (Auto) Chest x-ray: pending Allied health notes reviewed: nursing
--- NOTE | 2020-10-09 14:34 | XRay Report ---
CHEST 1 VIEW INDICATION: Pneumonia COMPARISON: 10/05/2020 FINDINGS: SUPPORT DEVICES: No change HEART / MEDIASTINUM: No significant abnormality. LUNGS / PLEURA: No significant pulmonary or pleural abnormality. No pneumothorax. ADDITIONAL FINDINGS: IMPRESSION: 1. No acute cardiopulmonary disease Signer Name: Brenden Martines MD Signed: 10/09/2020 2:29 PM Workstation Name: [employer]
--- NOTE | 2020-10-09 15:46 | Progress Note ---
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 neuro etiology trend temp and WBC curve last cultures on 09/25 no antibiotics at this time --Morbid obesity avoid hypoglycemia currently on no SSI- continue to monitor for need with inc in TF rate Disposition Plan: LTC v home with family Total Time Spent with Patient (Minutes): 60 Brief history: 45-year-old female with obesity hypoventilation syndrome and GERD who presented to the emergency department on 09/25/20 s/p cardiac arrest via EMS. Per EMS staff they were notified for shortness of breath and upon arrival patient was found to be in distress and subsequently went into cardiac arrest and she was treated in accordance to ACLS protocol and intubated in the field and transported to [facility]. Evaluation in the emergency department upon arrival to the emergency department patient was found to have pe rsistent hypoxic respiratory failure and was maintained on ventilator support. Work-up revealed sepsis, pneumonia, seizure disorder, metabolic acidosis as well as NSTEMI. Cardiology, neurology, CCM were consulted. Daily clinical course: 09/26/20: Patient was admitted with out of the hospital cardiac arrest status post CPR per ACLS protocols Anoxic brain injury, unresponsive Orally intubated on ventilatory support Vital signs reviewed. called patient's aunt , STAN Minor at [phone] and discussed in detail, patient's condition, tests and reports, consu ltants recommendations, poor prognosis, treatment plan[explained in detail the medications and their role in the treatment] pending tests. 09/27/2020; patient remains unresponsive, intubated on ventilatory support Follow neurology evaluation and recommendations 10/01: Patient has persistent leukocytosis and hyperchloremia. Patient now has hypernatremia and renal function has improved to CR/BUN 1.115 from 1.08/04. Patient has hypophosphatemia which was repleted yesterday and we will obtain a.m . labs. Patient has MRI brain pending. Family updated by neurology over the phone and BASKETBALL REFEREE at bedside. Patient niece was at bedside today and she will defer goals of care decision after MRI results. EEG findings were explained. According to her the patient was in found to be unresponsive by family and was given bystander CPR before arrival of EMS. 10/02: Patient received MRI brain today which showed diffuse cerebral restricted diffusion consistent with global anoxic brain injury, no associated hemorrhage or herniation and additional small acute lacunar infarct in the right paracentral lesia. 10/03: Cardiology will follow the patient peripherally given poor prognosis, Dr. Alvarado and has spoken to the family regarding prognosis today. Given hypotension patient will receive lower doses of blood pressure medicine and per manager social request a referral to [facility]. 10/04: Patient bilateral Doppler ultrasound are negative and heparin drip has been stopped. [facility] referral made by CM which was denied. Family is aware. No acute events reported overnight. Patient family was at bedside and updated by neurologist. Explained to them that pt. is not brain but is with significant brain injury, she is off sedation for a week with no clear changes in her clinical presentation. 10/05: Today patient is no longer hypernatremic so free water flushes were resume at the rate nutrition as ordered. Decrease in Cozaar today patient's T-max 100.7 which was responsive to Tylenol. At the time examination patient is on assist control tidal volume 450, rate of 12, PEEP of 6 and 25% FiO2. Patient will be tried on a CPAP trial today. 10/06/2020: No family at the bedside, spoke with critical care, patient was opening her eyes but continues to be encephalopathic. Patient on cefepime, will get pro-Kareem, if negative, DC antibiotics. Continues to be on CPAP and intubated. 10/07: No significant change clinically, patient remains on mechanical ventilation. discussed LT plan with Aunt and she is wanting a trach/peg and to take pt home with her; pt is a full code at this time. 10/08: General surgery consulted for trach and PEG placement. Patient remains on mechanical ventilation with diffuse anoxic brain injury status post cardiac arrest. Continue supportive care monitor clinically. Patient is full code very poor prognosis. 10/09/20; patient remains on ventilator with trach tube, started on tube feeding with PEG. Continue supportive care, vital stable. manager social working on placement. Subjective Date of service: 10/09/20 Principal diagnosis: Cardiac arrest; Ac. respiratory failure; Anoxic encephalopathy; PNA; NSTEMI Interval history: Patient seen and examined. Medical records and medication list reviewed. No acute event overnight noted by the RN. Patient on ventilator with trach tube, started on tube feeding with newly placed PICC manager social working on placement Vitals stable No family member at the bedside Objective - Exam Narrative Exam: General appearance: Present: no acute distress, well-nourished, other (not responsive ) - EENT ENT: clear oral mucosa - Neck Neck: Present: supple, normal ROM, trach in place - Respiratory Respiratory effort: normal - Cardiovascular Rhythm: regular Heart Sounds: Present: S1 & S2 Peripheral Pulses: within normal limits - Abdominal General gastrointestinal: soft, non-tender, PEG in place - Integumentary Integumentary: Present: clear, warm, dry - Allied Health Allied health notes reviewed: nursing, case management - Constitutional Vitals: Vital Signs - 12hr 10/09/20 10/09/20 10/09/20 04:00 04:27 04:28 Temperature 100.1 F H Pulse Rate 108 H 118 H Pulse Rate [ 103 H From Monitor] Respiratory 22 Rate Blood Pressure 100/64 109/58 O2 Sat by Pulse 95 100 Oximetry O2 Sat by Pulse 99 Oximetry [ Assessment] 10/09/20 10/09/20 10/09/20 04:30 05:00 05:30 Temperature Pulse Rate 117 H 112 H 115 H Pulse Rate [ From Monitor] Respiratory 22 13 16 Rate Blood Pressure 110/62 114/66 114/59 O2 Sat by Pulse 97 96 97 Oximetry O2 Sat by Pulse Oximetry [ Assessment] 10/09/20 10/09/20 10/09/20 06:00 06:30 07:01 Temperature Pulse Rate 116 H 107 H 97 H Pulse Rate [ From Monitor] Respiratory 17 16 23 Rate Blood Pressure 109/63 125/66 102/50 O2 Sat by Pulse 100 99 Oximetry O2 Sat by Pulse Oximetry [ Assessment] 10/09/20 10/09/20 10/09/20 07:13 07:30 07:34 Temperature 98.6 F Pulse Rate 97 H 107 H Pulse Rate [ From Monitor] Respiratory 12 Rate Blood Pressure 99/55 125/66 O2 Sat by Pulse 97 99 Oximetry O2 Sat by Pulse Oximetry [ Assessment] 10/09/20 10/09/20 10/09/20 07:37 08:00 08:30 Temperature Pulse Rate 97 H 101 H Pulse Rate [ From Monitor] Respiratory 21 23 Rate Blood Pressure 104/55 124/62 O2 Sat by Pulse 98 99 Oximetry O2 Sat by Pulse 98 Oximetry [ Assessment] 10/09/20 10/09/20 10/09/20 09:00 09:30 10:00 Temperature Pulse Rate 103 H 96 H 95 H Pulse Rate [ From Monitor] Respiratory 24 15 18 Rate Blood Pressure 118/58 113/61 96/55 O2 Sat by Pulse 100 98 96 Oximetry O2 Sat by Pulse Oximetry [ Assessment] 10/09/20 10/09/20 10/09/20 10:30 10:34 11:00 Temperature Pulse Rate 104 H 105 H 106 H Pulse Rate [ From Monitor] Respiratory 16 15 Rate Blood Pressure 122/72 122/72 122/66 O2 Sat by Pulse 99 100 Oximetry O2 Sat by Pulse Oximetry [ Assessment] 10/09/20 10/09/20 10/09/20 11:30 11:56 12:00 Temperature Pulse Rate 101 H 105 H 101 H Pulse Rate [ From Monitor] Respiratory 16 23 Rate Blood Pressure 105/65 122/72 89/62 O2 Sat by Pulse 95 99 97 Oximetry O2 Sat by Pulse Oximetry [ Assessment] 10/09/20 10/09/20 10/09/20 12:10 12:30 13:00 Temperature 98.2 F Pulse Rate 106 H 115 H Pulse Rate [ From Monitor] Respiratory 18 18 Rate Blood Pressure 107/65 122/71 O2 Sat by Pulse 97 97 Oximetry O2 Sat by Pulse Oximetry [ Assessment] 10/09/20 10/09/20 10/09/20 13:30 14:00 14:30 Temperature Pulse Rate 113 H 110 H 116 H Pulse Rate [ From Monitor] Respiratory 16 15 20 Rate Blood Pressure 127/64 114/68 111/63 O2 Sat by Pulse 96 94 95 Oximetry O2 Sat by Pulse Oximetry [ Assessment] 10/09/20 15:00 Temperature Pulse Rate 118 H Pulse Rate [ From Monitor] Respiratory 17 Rate Blood Pressure 106/66 O2 Sat by Pulse 97 Oximetry O2 Sat by Pulse Oximetry [ Assessment] - Labs CBC & Chem 7: 10/10/20 03:42 10/10/20 03:42 Labs: Abnormal lab results 10/08/20 10/08/20 10/09/20 Range/Units 16:17 23:24 04:07 WBC 14.2 H (4.5-11.0) K/mm3 Hgb 9.6 L (10.1-14.3) gm/dl MCH 24 L (28-32) pg RDW 23.5 H (13.2-15.2) % Plt Count 543 H (140-440) K/mm3 [place] % (Auto) 10.4 H (0.0-7.3) % [place] # (Auto) 1.5 H (0.0-0.8) K/mm3 Seg Neutrophils % 70.9 H (40.0-70.0) % Seg Neutrophils # 10.1 H (1.8-7.7) K/mm3 BUN (7-17) mg/dL Glucose (65-100) mg/dL POC Glucose 141 H 114 H (70-105) mg/dL 10/09/20 10/09/20 Range/Units 04:07 11:51 WBC (4.5-11.0) K/mm3 Hgb (10.1-14.3) gm/dl MCH (28-32) pg RDW (13.2-15.2) % Plt Count (140-440) K/mm3 [place] % (Auto) (0.0-7.3) % [place] # (Auto) (0.0-0.8) K/mm3 Seg Neutrophils % (40.0-70.0) % Seg Neutrophils # (1.8-7.7) K/mm3 BUN 18 H (7-17) mg/dL Glucose 152 H (65-100) mg/dL POC Glucose 134 H (70-105) mg/dL HEART Score - HEART Score EKG: Normal Age: 45-65 Risk factors: No known risk factors Troponin: Troponin T < 0.010 ng/mL (0.00-0.029) 10/02/20 06:48 Troponin: < normal limit - Critical Actions Critical Actions: 0-3 pts:0.9-1.7%risk of adverse cardiac event.Candidate for discharge
[2020-10-09] MEDS: SENNOSIDES 8.6 MG TAB PO SCH (21:15)
[2020-10-10] MEDS: ACETAMINOPHEN 325 MG/10.15 ML ORAL LIQD UNIT DOSE FEEDTUBE PRN ×2 (03:59→21:43)
[2020-10-10 04:54] LABS: Blood Urea Nitrogen 23 mg/dL (7-17); Calcium 9.6 mg/dL (8.4-10.2); Hemolysis Index 6
[2020-10-10 05:03] LABS: BUN/Creatinine Ratio 33
[2020-10-10] MEDS: HEPARIN 5,000 UNIT/1 ML VIAL SUB-Q SCH ×3 (05:08→21:16)
[2020-10-10 05:13] LABS: Basophils # (Auto) 0.1 K/mm3 (0.0-0.1); Basophils % (Auto) 0.5 % (0.0-1.8); Eosinophils # (Auto) 0.3 K/mm3 (0.0-0.4); Eosinophils % (Auto) 2.2 % (0.0-4.3); Hematocrit 29.2 % (30.3-42.9); Hemoglobin 9.1 gm/dl (10.1-14.3); Lymphocytes # (Auto) 2.8 K/mm3 (1.2-5.4); Lymphocytes % (Auto) 19.7 % (13.4-35.0); Mean Corpuscular HGB Conc 31 % (30-34); Mean Corpuscular Volume 81 fl (79-97); Monocytes % (Auto) 13.6 % (0.0-7.3); Platelet Count 540 K/mm3 (140-440); Red Blood Count 3.62 M/mm3 (3.65-5.03)
[2020-10-10 05:29] LABS: Red Cell Distribution Width 24.2 % (13.2-15.2)
[2020-10-10] MEDS: levETIRAcetam 500 MG/5 ML ORAL LIQD PO SCH ×2 (09:20→21:15)
[2020-10-10] MEDS: LOSARTAN 25 MG TAB PO SCH (09:20)
[2020-10-10] MEDS: MODAFINIL 100 MG TAB PO SCH (09:20)
[2020-10-10] MEDS: FAMOTIDINE 20 MG TAB PO SCH ×2 (09:21→21:15)
[2020-10-10] MEDS: carvediloL 12.5 MG TAB PO SCH ×2 (09:21→21:15)
[2020-10-10] MEDS: ASPIRIN 81 MG TAB CHEW PO SCH (09:25)
--- NOTE | 2020-10-10 12:50 | Progress Note ---
Assessment and Plan Cardiac arrest with return of spontaneous circulation. Acute respiratory failure, on mechanical ventilatory support. Acute toxic metabolic encephalopathy. Possible anoxic encephalopathy. Obesity. History of obesity hypoventilation syndrome. Leukocytosis. Likely aspiration pneumonia, bilateral. Anemia that is microcytic. Lactic acidosis. Elevated serum transaminases. Non-ST elevation myocardial infarction - will try SBT again later today - begin low dose SSI for hyperglycemia - continue scopolamine patch for secretion control - LTAC evaluation ongoing - continue care as below otherwise; - continue to wean supplemental oxygen for target O2 sat's > 90% acutely - VAP bundle addressed - continue lung protective strategies - continue bronchodilators with pulmonary hygiene per RT - wean per pulmonary driven protocols otherwise - continue Daily SAT and SBT assessment as tolerated - continue accuchecks with glycemic control per SSI (While critically ill target blood glucose of 140-180 mg/dL; avoid hypoglycemia) - sedation prn for target RASS 0 to -1 - avoid nephrotoxins, renally dose all medications - continue to avoid benzodiazepine's, reduce the possibility of delirium - completed AB's per ID rec's - prn analgesia per CPOT score - Maintenance of sleep-wake cycle, avoid delirium - continue enteral nutritional support at goal rate as tolerated - G.I. & VTE prophylaxis - PT/OT/ROM exercises - continue mobility protocols for pressure ulcer prophylaxis - Monitor hemodynamics closely - continue other care per attending / other consultants - discharge planning ongoing concurrently COVID SPECIFIC INTERVENTIONS - COVID tests result was negative .... Re-evaluate in am & prn CONDITION: CRITICAL PROGNOSIS: GUARDED CODE STATUS: FULL CODE The high probability of a clinically significant, sudden or life-threatening deterioration of the [respiratory, cardiovascular & neurologic] system(s) required my full and direct attention, intervention and personal management. The aggregate critical care time was [32] minutes without overlap. Time includes spent on; [x] Data Review and interpretation [x] Patient assessment and monitoring of vital signs [x] Documentation [x] Medication orders and management Subjective Date of service: 10/10/20 Principal diagnosis: Cardiac arrest; Ac. respiratory failure; Anoxic encephalopathy; PNA; NSTEMI Interval history: Patient is seen today for: Cardiac arrest with ROSC; Acute respiratory failure; Anoxic encephalopathy; Obesity; OHS; Aspiration pneumonia; NSTEMI Seen and examined at bedside; 24hour events reviewed; nursing and respiratory care staff consulted; no adverse overnight events reported to me; resting in bed; remains on MVS; failed SBT again today; AMS is persistent; BP's better; no seizures; no emesis or overt aspiration Objective Vital Signs - 12hr 10/10/20 10/10/20 10/10/20 01:00 01:30 02:00 Temperature Pulse Rate 115 H 117 H 117 H Respiratory 20 16 18 Rate Blood Pressure 111/57 111/57 111/57 O2 Sat by Pulse 94 95 95 Oximetry O2 Sat by Pulse Oximetry [ Assessment] 10/10/20 10/10/20 10/10/20 02:30 03:00 03:30 Temperature Pulse Rate 121 H 120 H 121 H Respiratory 22 22 15 Rate Blood Pressure 111/57 117/61 117/61 O2 Sat by Pulse 98 95 97 Oximetry O2 Sat by Pulse Oximetry [ Assessment] 10/10/20 10/10/20 10/10/20 03:40 03:59 04:00 Temperature 101.4 F H Pulse Rate 121 H 119 H Respiratory 18 Rate Blood Pressure 114/61 O2 Sat by Pulse 95 Oximetry O2 Sat by Pulse Oximetry [ Assessment] 10/10/20 10/10/20 10/10/20 04:30 04:58 05:00 Temperature Pulse Rate 119 H 121 H 122 H Respiratory 25 H 15 Rate Blood Pressure 114/61 114/61 106/62 O2 Sat by Pulse 97 96 94 Oximetry O2 Sat by Pulse Oximetry [ Assessment] 10/10/20 10/10/20 10/10/20 05:30 06:00 06:30 Temperature Pulse Rate 122 H 115 H 112 H Respiratory 19 14 18 Rate Blood Pressure 106/62 116/69 116/69 O2 Sat by Pulse 97 94 97 Oximetry O2 Sat by Pulse Oximetry [ Assessment] 10/10/20 10/10/20 10/10/20 07:00 07:30 08:00 Temperature 98.7 F Pulse Rate 111 H 110 H 109 H Respiratory 15 22 18 Rate Blood Pressure 123/69 123/69 119/61 O2 Sat by Pulse 94 96 96 Oximetry O2 Sat by Pulse Oximetry [ Assessment] 10/10/20 10/10/20 10/10/20 08:30 08:33 08:35 Temperature Pulse Rate 112 H 115 H Respiratory 22 Rate Blood Pressure 119/61 116/69 O2 Sat by Pulse 97 94 Oximetry O2 Sat by Pulse 97 Oximetry [ Assessment] 10/10/20 10/10/20 10/10/20 09:00 09:20 09:21 Temperature Pulse Rate 113 H 112 H 112 H Respiratory 29 H Rate Blood Pressure 127/62 127/62 127/62 O2 Sat by Pulse 95 Oximetry O2 Sat by Pulse Oximetry [ Assessment] 10/10/20 10/10/20 10/10/20 09:30 10:00 10:30 Temperature Pulse Rate 115 H 106 H 101 H Respiratory 17 20 21 Rate Blood Pressure 127/62 103/68 103/68 O2 Sat by Pulse 97 94 97 Oximetry O2 Sat by Pulse Oximetry [ Assessment] 10/10/20 10/10/20 11:00 11:45 Temperature Pulse Rate 105 H 105 H Respiratory 23 Rate Blood Pressure 115/58 115/58 O2 Sat by Pulse 94 94 Oximetry O2 Sat by Pulse Oximetry [ Assessment] Constitutional: no acute distress, other (middle aged obese female with mildly increased respiratory effort at rest on MVS) Eyes: non-icteric ENT: oropharynx moist, other (+ midline tracheostomy) Neck: supple, no lymphadenopathy, no JVD Effort: mildly labored Ascultation: Bilateral: rhonchi Percussion: Bilateral: not dull Cardiovascular: regular rate and rhythm, other (S1,S2) Gastrointestinal: normoactive bowel sounds, soft, non-tender, non-distended Integumentary: normal Extremities: no cyanosis, no edema, pulses normal, no ischemia or petechiae Neurologic: pupils equal and round, unable to assess Psychiatric: other (unable to assess re: AMS) CBC and BMP: 10/10/20 03:42 10/10/20 03:42 ABG, PT/INR, D-dimer: ABG ABG pH 7.424 (7.320-7.450) 10/01/20 04:12 POC ABG pCO2 41.6 mmHg (32.0-48.0) 10/01/20 04:12 POC ABG pO2 73.0 mmHg (83-108) L 10/01/20 04:12 POC ABG HCO3 26.6 10/01/20 04:12 ABG O2 Saturation 94.3 (0-100) 10/01/20 04:12 PT/INR, D-dimer PT 13.7 Sec. (12.2-14.9) 09/25/20 18:15 INR 1.00 (0.87-1.13) 09/25/20 18:15 Abnormal lab findings: Abnormal Labs 09/25/20 09/25/20 09/25/20 17:19 17:21 18:15 WBC 13.8 H RBC Hgb 9.9 L Hct MCV 76 L MCH 23 L RDW 17.9 H Plt Count Lymph % (Auto) [place] % (Auto) Lymph # (Auto) [place] # (Auto) Seg Neutrophils % 78.6 H Seg Neuts % (Manual) Eosinophils % (Manual) Seg Neutrophils # 10.8 H Seg Neutrophils # Man Monocytes # (Manual) Eosinophils # (Manual) APTT Heparin Anti-Xa Level ABG pH POC ABG pCO2 26.2 L POC ABG pO2 554.5 H ABG Hemoglobin 9.0 L ABG Oxyhemoglobin 99.0 H ABG Sodium 134.5 L ABG Potassium ABG Chloride ABG Glucose 220 H Carboxyhemoglobin Sodium Potassium Chloride BUN Creatinine Glucose POC Glucose Lactic Acid Calcium Phosphorus AST ALT Troponin T C-Reactive Protein Albumin HDL Cholesterol Arterial Blood Glucose 220 H Arterial Blood Ionized Calcium 4.2 L Urine WBC (Auto) 14.0 H 09/25/20 09/25/20 09/25/20 18:15 18:15 18:15 WBC RBC Hgb Hct MCV MCH RDW Plt Count Lymph % (Auto) [place] % (Auto) Lymph # (Auto) [place] # (Auto) Seg Neutrophils % Seg Neuts % (Manual) Eosinophils % (Manual) Seg Neutrophils # Seg Neutrophils # Man Monocytes # (Manual) Eosinophils # (Manual) APTT 21.1 L Heparin Anti-Xa Level ABG pH POC ABG pCO2 POC ABG pO2 ABG Hemoglobin ABG Oxyhemoglobin ABG Sodium ABG Potassium ABG Chloride ABG Glucose Carboxyhemoglobin Sodium Potassium Chloride BUN Creatinine Glucose 113 H POC Glucose Lactic Acid 2.60 H* Calcium Phosphorus AST 162 H ALT 131 H Troponin T 0.096 H C-Reactive Protein Albumin HDL Cholesterol Arterial Blood Glucose Arterial Blood Ionized Calcium Urine WBC (Auto) 09/25/20 09/25/20 09/26/20 23:13 23:13 03:15 WBC RBC Hgb Hct MCV MCH RDW Plt Count Lymph % (Auto) [place] % (Auto) Lymph # (Auto) [place] # (Auto) Seg Neutrophils % Seg Neuts % (Manual) Eosinophils % (Manual) Seg Neutrophils # Seg Neutrophils # Man Monocytes # (Manual) Eosinophils # (Manual) APTT Heparin Anti-Xa Level ABG pH 7.451 H POC ABG pCO2 27.1 L POC ABG pO2 ABG Hemoglobin 10.4 L ABG Oxyhemoglobin ABG Sodium 135.2 L ABG Potassium ABG Chloride 108.0 H ABG Glucose 137 H Carboxyhemoglobin Sodium Potassium Chloride BUN Creatinine Glucose POC Glucose Lactic Acid 2.90 H* Calcium Phosphorus AST ALT Troponin T 0.170 H* D C-Reactive Protein Albumin HDL Cholesterol 60 H Arterial Blood Glucose 137 H Arterial Blood Ionized Calcium 4.2 L Urine WBC (Auto) 09/26/20 09/26/20 09/26/20 05:09 05:09 05:09 WBC 15.8 H RBC Hgb 10.0 L Hct MCV 77 L MCH 24 L RDW 17.8 H Plt Count Lymph % (Auto) 7.2 L [place] % (Auto) Lymph # (Auto) 1.1 L [place] # (Auto) 1.0 H Seg Neutrophils % 86.1 H Seg Neuts % (Manual) Eosinophils % (Manual) Seg Neutrophils # 13.6 H Seg Neutrophils # Man Monocytes # (Manual) Eosinophils # (Manual) APTT Heparin Anti-Xa Level ABG pH POC ABG pCO2 POC ABG pO2 ABG Hemoglobin ABG Oxyhemoglobin ABG Sodium ABG Potassium ABG Chloride ABG Glucose Carboxyhemoglobin Sodium Potassium Chloride BUN Creatinine Glucose 114 H POC Glucose Lactic Acid 2.40 H* Calcium 8.1 L Phosphorus AST 112 H ALT 103 H Troponin T C-Reactive Protein Albumin 3.8 L HDL Cholesterol Arterial Blood Glucose Arterial Blood Ionized Calcium Urine WBC (Auto) 09/26/20 09/27/20 09/27/20 15:45 03:33 04:41 WBC RBC Hgb 9.0 L Hct 28.6 L MCV MCH RDW Plt Count Lymph % (Auto) [place] % (Auto) Lymph # (Auto) [place] # (Auto) Seg Neutrophils % Seg Neuts % (Manual) Eosinophils % (Manual) Seg Neutrophils # Seg Neutrophils # Man Monocytes # (Manual) Eosinophils # (Manual) APTT Heparin Anti-Xa Level ABG pH POC ABG pCO2 POC ABG pO2 141.6 H ABG Hemoglobin 9.3 L ABG Oxyhemoglobin ABG Sodium ABG Potassium 3.2 L ABG Chloride 108.0 H ABG Glucose 118 H Carboxyhemoglobin Sodium Potassium Chloride BUN Creatinine Glucose POC Glucose Lactic Acid Calcium Phosphorus 2.20 L AST ALT Troponin T C-Reactive Protein 4.30 H Albumin HDL Cholesterol Arterial Blood Glucose 118 H Arterial Blood Ionized Calcium 4.2 L Urine WBC (Auto) 09/27/20 09/27/20 09/28/20 04:41 22:53 04:00 WBC RBC Hgb Hct MCV MCH RDW Plt Count Lymph % (Auto) [place] % (Auto) Lymph # (Auto) [place] # (Auto) Seg Neutrophils % Seg Neuts % (Manual) Eosinophils % (Manual) Seg Neutrophils # Seg Neutrophils # Man Monocytes # (Manual) Eosinophils # (Manual) APTT Heparin Anti-Xa Level 0.75 H ABG pH 7.467 H POC ABG pCO2 POC ABG pO2 78.9 L ABG Hemoglobin 9.8 L ABG Oxyhemoglobin ABG Sodium ABG Potassium ABG Chloride ABG Glucose 141 H Carboxyhemoglobin Sodium Potassium Chloride BUN Creatinine Glucose POC Glucose 109 H Lactic Acid Calcium Phosphorus AST ALT Troponin T C-Reactive Protein Albumin HDL Cholesterol Arterial Blood Glucose 141 H Arterial Blood Ionized Calcium Urine WBC (Auto) 09/28/20 09/28/20 09/28/20 05:02 05:02 17:42 WBC 11.9 H RBC Hgb 9.3 L Hct 29.5 L MCV 76 L MCH 24 L RDW 19.4 H Plt Count Lymph % (Auto) [place] % (Auto) 11.1 H Lymph # (Auto) [place] # (Auto) 1.3 H Seg Neutrophils % 72.5 H Seg Neuts % (Manual) Eosinophils % (Manual) Seg Neutrophils # 8.6 H Seg Neutrophils # Man Monocytes # (Manual) Eosinophils # (Manual) APTT Heparin Anti-Xa Level ABG pH POC ABG pCO2 POC ABG pO2 ABG Hemoglobin ABG Oxyhemoglobin ABG Sodium ABG Potassium ABG Chloride ABG Glucose Carboxyhemoglobin Sodium Potassium 3.4 L Chloride BUN Creatinine Glucose 126 H POC Glucose 69 L Lactic Acid Calcium Phosphorus AST 129 H ALT 60 H Troponin T C-Reactive Protein Albumin 3.7 L HDL Cholesterol Arterial Blood Glucose Arterial Blood Ionized Calcium Urine WBC (Auto) 09/29/20 09/29/20 09/29/20 04:00 05:53 08:39 WBC RBC Hgb 10.0 L Hct MCV MCH RDW Plt Count Lymph % (Auto) [place] % (Auto) Lymph # (Auto) [place] # (Auto) Seg Neutrophils % Seg Neuts % (Manual) Eosinophils % (Manual) Seg Neutrophils # Seg Neutrophils # Man Monocytes # (Manual) Eosinophils # (Manual) APTT Heparin Anti-Xa Level ABG pH POC ABG pCO2 POC ABG pO2 81.1 L ABG Hemoglobin 11.0 L ABG Oxyhemoglobin ABG Sodium ABG Potassium ABG Chloride 110.0 H ABG Glucose 129 H Carboxyhemoglobin Sodium Potassium Chloride BUN Creatinine Glucose POC Glucose 58 L Lactic Acid Calcium Phosphorus AST ALT Troponin T C-Reactive Protein Albumin HDL Cholesterol Arterial Blood Glucose 129 H Arterial Blood Ionized Calcium Urine WBC (Auto) 09/30/20 09/30/20 09/30/20 00:10 10:45 15:05 WBC 12.5 H RBC Hgb 9.9 L Hct MCV 78 L MCH 24 L RDW 21.0 H Plt Count Lymph % (Auto) [place] % (Auto) 13.5 H Lymph # (Auto) [place] # (Auto) 1.7 H Seg Neutrophils % Seg Neuts % (Manual) Eosinophils % (Manual) Seg Neutrophils # 8.1 H Seg Neutrophils # Man Monocytes # (Manual) Eosinophils # (Manual) APTT Heparin Anti-Xa Level ABG pH 7.469 H POC ABG pCO2 POC ABG pO2 ABG Hemoglobin 10.4 L ABG Oxyhemoglobin ABG Sodium 146.2 H ABG Potassium ABG Chloride 109.0 H ABG Glucose 155 H Carboxyhemoglobin Sodium Potassium Chloride BUN Creatinine Glucose POC Glucose 131 H Lactic Acid Calcium Phosphorus AST ALT Troponin T C-Reactive Protein Albumin HDL Cholesterol Arterial Blood Glucose 155 H Arterial Blood Ionized Calcium Urine WBC (Auto) 09/30/20 09/30/20 10/01/20 15:05 17:37 00:29 WBC RBC Hgb Hct MCV MCH RDW Plt Count Lymph % (Auto) [place] % (Auto) Lymph # (Auto) [place] # (Auto) Seg Neutrophils % Seg Neuts % (Manual) Eosinophils % (Manual) Seg Neutrophils # Seg Neutrophils # Man Monocytes # (Manual) Eosinophils # (Manual) APTT Heparin Anti-Xa Level ABG pH POC ABG pCO2 POC ABG pO2 ABG Hemoglobin ABG Oxyhemoglobin ABG Sodium ABG Potassium ABG Chloride ABG Glucose Carboxyhemoglobin Sodium Potassium Chloride 109.1 H BUN 18 H Creatinine 1.4 H Glucose 122 H POC Glucose 127 H 119 H Lactic Acid Calcium Phosphorus 2.00 L AST ALT Troponin T C-Reactive Protein Albumin HDL Cholesterol Arterial Blood Glucose Arterial Blood Ionized Calcium Urine WBC (Auto) 10/01/20 10/01/20 10/01/20 04:12 05:56 05:56 WBC 14.2 H RBC Hgb 9.7 L Hct MCV 78 L MCH 23 L RDW 21.1 H Plt Count Lymph % (Auto) [place] % (Auto) Lymph # (Auto) [place] # (Auto) Seg Neutrophils % Seg Neuts % (Manual) Eosinophils % (Manual) Seg Neutrophils # Seg Neutrophils # Man Monocytes # (Manual) Eosinophils # (Manual) APTT Heparin Anti-Xa Level ABG pH POC ABG pCO2 POC ABG pO2 73.0 L ABG Hemoglobin 10.0 L ABG Oxyhemoglobin 93.7 L ABG Sodium 146.4 H ABG Potassium ABG Chloride 110.0 H ABG Glucose 124 H Carboxyhemoglobin 0.3 L Sodium 147 H Potassium Chloride 109.6 H BUN Creatinine Glucose 109 H POC Glucose Lactic Acid Calcium Phosphorus AST ALT Troponin T C-Reactive Protein Albumin HDL Cholesterol Arterial Blood Glucose 124 H Arterial Blood Ionized Calcium Urine WBC (Auto) 10/01/20 10/01/20 10/02/20 19:21 23:17 05:27 WBC RBC Hgb Hct MCV MCH RDW Plt Count Lymph % (Auto) [place] % (Auto) Lymph # (Auto) [place] # (Auto) Seg Neutrophils % Seg Neuts % (Manual) Eosinophils % (Manual) Seg Neutrophils # Seg Neutrophils # Man Monocytes # (Manual) Eosinophils # (Manual) APTT Heparin Anti-Xa Level ABG pH POC ABG pCO2 POC ABG pO2 ABG Hemoglobin ABG Oxyhemoglobin ABG Sodium ABG Potassium ABG Chloride ABG Glucose Carboxyhemoglobin Sodium Potassium Chloride BUN Creatinine Glucose POC Glucose 126 H 160 H 121 H Lactic Acid Calcium Phosphorus AST ALT Troponin T C-Reactive Protein Albumin HDL Cholesterol Arterial Blood Glucose Arterial Blood Ionized Calcium Urine WBC (Auto) 10/02/20 10/02/20 10/02/20 06:48 06:48 11:51 WBC 14.2 H RBC Hgb 9.6 L Hct MCV MCH 25 L RDW 21.7 H Plt Count Lymph % (Auto) [place] % (Auto) Lymph # (Auto) [place] # (Auto) Seg Neutrophils % Seg Neuts % (Manual) Eosinophils % (Manual) Seg Neutrophils # Seg Neutrophils # Man Monocytes # (Manual) Eosinophils # (Manual) APTT Heparin Anti-Xa Level ABG pH POC ABG pCO2 POC ABG pO2 ABG Hemoglobin ABG Oxyhemoglobin ABG Sodium ABG Potassium ABG Chloride ABG Glucose Carboxyhemoglobin Sodium 147 H Potassium Chloride 110.4 H BUN Creatinine Glucose 134 H POC Glucose 121 H Lactic Acid Calcium Phosphorus 2.20 L AST ALT Troponin T C-Reactive Protein Albumin HDL Cholesterol Arterial Blood Glucose Arterial Blood Ionized Calcium Urine WBC (Auto) 10/02/20 10/03/20 10/03/20 17:19 00:35 07:24 WBC 12.9 H RBC Hgb 8.9 L Hct 29.6 L MCV MCH 24 L RDW 21.9 H Plt Count Lymph % (Auto) [place] % (Auto) Lymph # (Auto) [place] # (Auto) Seg Neutrophils % Seg Neuts % (Manual) Eosinophils % (Manual) Seg Neutrophils # Seg Neutrophils # Man Monocytes # (Manual) Eosinophils # (Manual) APTT Heparin Anti-Xa Level ABG pH POC ABG pCO2 POC ABG pO2 ABG Hemoglobin ABG Oxyhemoglobin ABG Sodium ABG Potassium ABG Chloride ABG Glucose Carboxyhemoglobin Sodium Potassium Chloride BUN Creatinine Glucose POC Glucose 107 H 112 H Lactic Acid Calcium Phosphorus AST ALT Troponin T C-Reactive Protein Albumin HDL Cholesterol Arterial Blood Glucose Arterial Blood Ionized Calcium Urine WBC (Auto) 10/03/20 10/03/20 10/03/20 07:24 17:27 20:19 WBC RBC Hgb Hct MCV MCH RDW Plt Count Lymph % (Auto) [place] % (Auto) Lymph # (Auto) [place] # (Auto) Seg Neutrophils % Seg Neuts % (Manual) Eosinophils % (Manual) Seg Neutrophils # Seg Neutrophils # Man Monocytes # (Manual) Eosinophils # (Manual) APTT Heparin Anti-Xa Level 0.18 L ABG pH POC ABG pCO2 POC ABG pO2 ABG Hemoglobin ABG Oxyhemoglobin ABG Sodium ABG Potassium ABG Chloride ABG Glucose Carboxyhemoglobin Sodium 147 H Potassium Chloride 110.4 H BUN Creatinine Glucose 128 H POC Glucose 136 H Lactic Acid Calcium Phosphorus AST ALT Troponin T C-Reactive Protein Albumin HDL Cholesterol Arterial Blood Glucose Arterial Blood Ionized Calcium Urine WBC (Auto) 10/03/20 10/04/20 10/04/20 23:34 04:07 06:12 WBC RBC Hgb Hct MCV MCH RDW Plt Count Lymph % (Auto) [place] % (Auto) Lymph # (Auto) [place] # (Auto) Seg Neutrophils % Seg Neuts % (Manual) Eosinophils % (Manual) Seg Neutrophils # Seg Neutrophils # Man Monocytes # (Manual) Eosinophils # (Manual) APTT Heparin Anti-Xa Level 0.25 L ABG pH POC ABG pCO2 POC ABG pO2 ABG Hemoglobin ABG Oxyhemoglobin ABG Sodium ABG Potassium ABG Chloride ABG Glucose Carboxyhemoglobin Sodium Potassium Chloride BUN Creatinine Glucose POC Glucose 119 H 128 H Lactic Acid Calcium Phosphorus AST ALT Troponin T C-Reactive Protein Albumin HDL Cholesterol Arterial Blood Glucose Arterial Blood Ionized Calcium Urine WBC (Auto) 10/04/20 10/04/20 10/05/20 11:38 17:39 00:17 WBC RBC Hgb Hct MCV MCH RDW Plt Count Lymph % (Auto) [place] % (Auto) Lymph # (Auto) [place] # (Auto) Seg Neutrophils % Seg Neuts % (Manual) Eosinophils % (Manual) Seg Neutrophils # Seg Neutrophils # Man Monocytes # (Manual) Eosinophils # (Manual) APTT Heparin Anti-Xa Level ABG pH POC ABG pCO2 POC ABG pO2 ABG Hemoglobin ABG Oxyhemoglobin ABG Sodium ABG Potassium ABG Chloride ABG Glucose Carboxyhemoglobin Sodium Potassium Chloride BUN Creatinine Glucose POC Glucose 129 H 136 H 125 H Lactic Acid Calcium Phosphorus AST ALT Troponin T C-Reactive Protein Albumin HDL Cholesterol Arterial Blood Glucose Arterial Blood Ionized Calcium Urine WBC (Auto) 10/05/20 10/05/20 10/05/20 04:17 04:17 05:31 WBC 13.0 H RBC Hgb 9.1 L Hct 29.5 L MCV MCH 25 L RDW 22.2 H Plt Count Lymph % (Auto) [place] % (Auto) Lymph # (Auto) [place] # (Auto) Seg Neutrophils % Seg Neuts % (Manual) Eosinophils % (Manual) Seg Neutrophils # Seg Neutrophils # Man Monocytes # (Manual) Eosinophils # (Manual) APTT Heparin Anti-Xa Level ABG pH POC ABG pCO2 POC ABG pO2 ABG Hemoglobin ABG Oxyhemoglobin ABG Sodium ABG Potassium ABG Chloride ABG Glucose Carboxyhemoglobin Sodium Potassium Chloride BUN Creatinine Glucose 148 H POC Glucose 160 H Lactic Acid Calcium Phosphorus AST ALT Troponin T C-Reactive Protein Albumin HDL Cholesterol Arterial Blood Glucose Arterial Blood Ionized Calcium Urine WBC (Auto) 10/05/20 10/05/20 10/05/20 12:09 17:33 23:30 WBC RBC Hgb Hct MCV MCH RDW Plt Count Lymph % (Auto) [place] % (Auto) Lymph # (Auto) [place] # (Auto) Seg Neutrophils % Seg Neuts % (Manual) Eosinophils % (Manual) Seg Neutrophils # Seg Neutrophils # Man Monocytes # (Manual) Eosinophils # (Manual) APTT Heparin Anti-Xa Level ABG pH POC ABG pCO2 POC ABG pO2 ABG Hemoglobin ABG Oxyhemoglobin ABG Sodium ABG Potassium ABG Chloride ABG Glucose Carboxyhemoglobin Sodium Potassium Chloride BUN Creatinine Glucose POC Glucose 148 H 135 H 142 H Lactic Acid Calcium Phosphorus AST ALT Troponin T C-Reactive Protein Albumin HDL Cholesterol Arterial Blood Glucose Arterial Blood Ionized Calcium Urine WBC (Auto) 10/06/20 10/06/20 10/06/20 04:37 05:35 10:55 WBC RBC Hgb Hct MCV MCH RDW Plt Count Lymph % (Auto) [place] % (Auto) Lymph # (Auto) [place] # (Auto) Seg Neutrophils % Seg Neuts % (Manual) Eosinophils % (Manual) Seg Neutrophils # Seg Neutrophils # Man Monocytes # (Manual) Eosinophils # (Manual) APTT Heparin Anti-Xa Level ABG pH POC ABG pCO2 POC ABG pO2 ABG Hemoglobin ABG Oxyhemoglobin ABG Sodium ABG Potassium ABG Chloride ABG Glucose Carboxyhemoglobin Sodium 136 L Potassium Chloride BUN Creatinine Glucose 184 H POC Glucose 151 H 163 H Lactic Acid Calcium Phosphorus AST 66 H ALT Troponin T C-Reactive Protein Albumin 3.3 L HDL Cholesterol Arterial Blood Glucose Arterial Blood Ionized Calcium Urine WBC (Auto) 10/06/20 10/06/20 10/07/20 16:41 23:31 05:24 WBC RBC Hgb Hct MCV MCH RDW Plt Count Lymph % (Auto) [place] % (Auto) Lymph # (Auto) [place] # (Auto) Seg Neutrophils % Seg Neuts % (Manual) Eosinophils % (Manual) Seg Neutrophils # Seg Neutrophils # Man Monocytes # (Manual) Eosinophils # (Manual) APTT Heparin Anti-Xa Level ABG pH POC ABG pCO2 POC ABG pO2 ABG Hemoglobin ABG Oxyhemoglobin ABG Sodium ABG Potassium ABG Chloride ABG Glucose Carboxyhemoglobin Sodium Potassium Chloride BUN Creatinine Glucose POC Glucose 156 H 190 H 194 H Lactic Acid Calcium Phosphorus AST ALT Troponin T C-Reactive Protein Albumin HDL Cholesterol Arterial Blood Glucose Arterial Blood Ionized Calcium Urine WBC (Auto) 10/07/20 10/07/20 10/07/20 11:48 17:50 18:12 WBC 15.7 H RBC Hgb 9.2 L Hct 30.1 L MCV MCH 25 L RDW 24.1 H Plt Count 514 H Lymph % (Auto) [place] % (Auto) Lymph # (Auto) [place] # (Auto) Seg Neutrophils % Seg Neuts % (Manual) 71.0 H Eosinophils % (Manual) 5.0 H Seg Neutrophils # Seg Neutrophils # Man 11.1 H Monocytes # (Manual) 1.1 H Eosinophils # (Manual) 0.8 H APTT Heparin Anti-Xa Level ABG pH POC ABG pCO2 POC ABG pO2 ABG Hemoglobin ABG Oxyhemoglobin ABG Sodium ABG Potassium ABG Chloride ABG Glucose Carboxyhemoglobin Sodium Potassium Chloride BUN Creatinine Glucose POC Glucose 203 H 191 H Lactic Acid Calcium Phosphorus AST ALT Troponin T C-Reactive Protein Albumin HDL Cholesterol Arterial Blood Glucose Arterial Blood Ionized Calcium Urine WBC (Auto) 10/07/20 10/08/20 10/08/20 23:40 04:22 04:22 WBC 15.2 H RBC Hgb 9.6 L Hct MCV MCH 24 L RDW 23.3 H Plt Count 517 H Lymph % (Auto) [place] % (Auto) Lymph # (Auto) [place] # (Auto) Seg Neutrophils % Seg Neuts % (Manual) Eosinophils % (Manual) Seg Neutrophils # Seg Neutrophils # Man Monocytes # (Manual) Eosinophils # (Manual) APTT Heparin Anti-Xa Level ABG pH POC ABG pCO2 POC ABG pO2 ABG Hemoglobin ABG Oxyhemoglobin ABG Sodium ABG Potassium ABG Chloride ABG Glucose Carboxyhemoglobin Sodium Potassium Chloride BUN 18 H Creatinine Glucose 150 H POC Glucose 191 H Lactic Acid Calcium 10.3 H Phosphorus AST 63 H ALT Troponin T C-Reactive Protein Albumin HDL Cholesterol Arterial Blood Glucose Arterial Blood Ionized Calcium Urine WBC (Auto) 10/08/20 10/08/20 10/08/20 05:41 11:53 16:17 WBC RBC Hgb Hct MCV MCH RDW Plt Count Lymph % (Auto) [place] % (Auto) Lymph # (Auto) [place] # (Auto) Seg Neutrophils % Seg Neuts % (Manual) Eosinophils % (Manual) Seg Neutrophils # Seg Neutrophils # Man Monocytes # (Manual) Eosinophils # (Manual) APTT Heparin Anti-Xa Level ABG pH POC ABG pCO2 POC ABG pO2 ABG Hemoglobin ABG Oxyhemoglobin ABG Sodium ABG Potassium ABG Chloride ABG Glucose Carboxyhemoglobin Sodium Potassium Chloride BUN Creatinine Glucose POC Glucose 125 H 116 H 141 H Lactic Acid Calcium Phosphorus AST ALT Troponin T C-Reactive Protein Albumin HDL Cholesterol Arterial Blood Glucose Arterial Blood Ionized Calcium Urine WBC (Auto) 10/08/20 10/09/20 10/09/20 23:24 04:07 04:07 WBC 14.2 H RBC Hgb 9.6 L Hct MCV MCH 24 L RDW 23.5 H Plt Count 543 H Lymph % (Auto) [place] % (Auto) 10.4 H Lymph # (Auto) [place] # (Auto) 1.5 H Seg Neutrophils % 70.9 H Seg Neuts % (Manual) Eosinophils % (Manual) Seg Neutrophils # 10.1 H Seg Neutrophils # Man Monocytes # (Manual) Eosinophils # (Manual) APTT Heparin Anti-Xa Level ABG pH POC ABG pCO2 POC ABG pO2 ABG Hemoglobin ABG Oxyhemoglobin ABG Sodium ABG Potassium ABG Chloride ABG Glucose Carboxyhemoglobin Sodium Potassium Chloride BUN 18 H Creatinine Glucose 152 H POC Glucose 114 H Lactic Acid Calcium Phosphorus AST ALT Troponin T C-Reactive Protein Albumin HDL Cholesterol Arterial Blood Glucose Arterial Blood Ionized Calcium Urine WBC (Auto) 10/09/20 10/09/20 10/10/20 11:51 17:35 00:15 WBC RBC Hgb Hct MCV MCH RDW Plt Count Lymph % (Auto) [place] % (Auto) Lymph # (Auto) [place] # (Auto) Seg Neutrophils % Seg Neuts % (Manual) Eosinophils % (Manual) Seg Neutrophils # Seg Neutrophils # Man Monocytes # (Manual) Eosinophils # (Manual) APTT Heparin Anti-Xa Level ABG pH POC ABG pCO2 POC ABG pO2 ABG Hemoglobin ABG Oxyhemoglobin ABG Sodium ABG Potassium ABG Chloride ABG Glucose Carboxyhemoglobin Sodium Potassium Chloride BUN Creatinine Glucose POC Glucose 134 H 139 H 184 H Lactic Acid Calcium Phosphorus AST ALT Troponin T C-Reactive Protein Albumin HDL Cholesterol Arterial Blood Glucose Arterial Blood Ionized Calcium Urine WBC (Auto) 10/10/20 10/10/20 10/10/20 03:42 03:42 05:45 WBC 14.5 H RBC 3.62 L Hgb 9.1 L Hct 29.2 L MCV MCH 25 L RDW 24.2 H Plt Count 540 H Lymph % (Auto) [place] % (Auto) 13.6 H Lymph # (Auto) [place] # (Auto) 2.0 H Seg Neutrophils % Seg Neuts % (Manual) Eosinophils % (Manual) Seg Neutrophils # 9.3 H Seg Neutrophils # Man Monocytes # (Manual) Eosinophils # (Manual) APTT Heparin Anti-Xa Level ABG pH POC ABG pCO2 POC ABG pO2 ABG Hemoglobin ABG Oxyhemoglobin ABG Sodium ABG Potassium ABG Chloride ABG Glucose Carboxyhemoglobin Sodium 132 L Potassium Chloride 97.4 L BUN 23 H Creatinine Glucose 190 H POC Glucose 213 H Lactic Acid Calcium Phosphorus AST ALT Troponin T C-Reactive Protein Albumin HDL Cholesterol Arterial Blood Glucose Arterial Blood Ionized Calcium Urine WBC (Auto) 10/10/20 12:05 WBC RBC Hgb Hct MCV MCH RDW Plt Count Lymph % (Auto) [place] % (Auto) Lymph # (Auto) [place] # (Auto) Seg Neutrophils % Seg Neuts % (Manual) Eosinophils % (Manual) Seg Neutrophils # Seg Neutrophils # Man Monocytes # (Manual) Eosinophils # (Manual) APTT Heparin Anti-Xa Level ABG pH POC ABG pCO2 POC ABG pO2 ABG Hemoglobin ABG Oxyhemoglobin ABG Sodium ABG Potassium ABG Chloride ABG Glucose Carboxyhemoglobin Sodium Potassium Chloride BUN Creatinine Glucose POC Glucose 199 H Lactic Acid Calcium Phosphorus AST ALT Troponin T C-Reactive Protein Albumin HDL Cholesterol Arterial Blood Glucose Arterial Blood Ionized Calcium Urine WBC (Auto) Chest x-ray: other (none today) Allied health notes reviewed: nursing
--- NOTE | 2020-10-10 14:49 | Progress Note ---
Assessment and Plan --Acute encephalopathy sp cardiac arrest; due to anoxic brain injury; MRI/ EEG - see report; concerned for anoxic injury neurology has seen poor prognosis case management working with family on d/c plan Status post trach in place placement; pt is a full code at this time --hx seizure disorder keppra BID PRN ativan modafinil daily no movement to noxious stimuli -hx htn; -hx dilated MEDICARE SPECIALIST/NSTEMI SR, asa daily coreg and cozar scheduled RN should hold BP meds for MAP <65 PRN labetolol echo LVEF 20-25 I/O follow electrolytes and replace as needed AM labs ordered -Acute hypoxic resp failure sp cardiac arrest Patient ventilated with mechanical ventilation gen surg consulted for trach --GERD pepcid scopolamine patch every 72 hours ordered standing --Constipation gen surg consult for PEG last recorded BM - bowel reg senna tolerating TF --Febrile illness with intermittent temps intermittent temps ? neuro etiology trend temp and WBC curve last cultures on 09/25 no antibiotics at this time --Morbid obesity avoid hypoglycemia currently on no SSI- continue to monitor for need with inc in TF rate Disposition Plan: LTC v home with family Total Time Spent with Patient (Minutes): 60 Brief history: 45-year-old female with obesity hypoventilation syndrome and GERD who presented to the emergency department on 09/25/20 s/p cardiac arrest via EMS. Per EMS staff they were notified for shortness of breath and upon arrival patient was found to be in distress and subsequently went into cardiac arrest and she was treated in accordance to ACLS protocol and intubated in the field and transported to [facility]. Evaluation in the emergency department upon arrival to the emergency department patient was found to have pe rsistent hypoxic respiratory failure and was maintained on ventilator support. Work-up revealed sepsis, pneumonia, seizure disorder, metabolic acidosis as well as NSTEMI. Cardiology, neurology, CCM were consulted. Daily clinical course: 09/26/20: Patient was admitted with out of the hospital cardiac arrest status post CPR per ACLS protocols Anoxic brain injury, unresponsive Orally intubated on ventilatory support Vital signs reviewed. called patient's aunt , STAN Minor at [phone] and discussed in detail, patient's condition, tests and reports, consu ltants recommendations, poor prognosis, treatment plan[explained in detail the medications and their role in the treatment] pending tests. 09/27/2020; patient remains unresponsive, intubated on ventilatory support Follow neurology evaluation and recommendations 10/01: Patient has persistent leukocytosis and hyperchloremia. Patient now has hypernatremia and renal function has improved to CR/BUN 1.115 from 1.08/04. Patient has hypophosphatemia which was repleted yesterday and we will obtain a.m . labs. Patient has MRI brain pending. Family updated by neurology over the phone and SOFTWARE DESIGN ANALYST at bedside. Patient niece was at bedside today and she will defer goals of care decision after MRI results. EEG findings were explained. According to her the patient was in found to be unresponsive by family and was given bystander CPR before arrival of EMS. 10/02: Patient received MRI brain today which showed diffuse cerebral restricted diffusion consistent with global anoxic brain injury, no associated hemorrhage or herniation and additional small acute lacunar infarct in the right paracentral lesia. 10/03: Cardiology will follow the patient peripherally given poor prognosis, Dr. Alvarado and has spoken to the family regarding prognosis today. Given hypotension patient will receive lower doses of blood pressure medicine and per social worker masters request a referral to [facility]. 10/04: Patient bilateral Doppler ultrasound are negative and heparin drip has been stopped. [facility] referral made by CM which was denied. Family is aware. No acute events reported overnight. Patient family was at bedside and updated by neurologist. Explained to them that pt. is not brain but is with significant brain injury, she is off sedation for a week with no clear changes in her clinical presentation. 10/05: Today patient is no longer hypernatremic so free water flushes were resume at the rate nutrition as ordered. Decrease in Cozaar today patient's T-max 100.7 which was responsive to Tylenol. At the time examination patient is on assist control tidal volume 450, rate of 12, PEEP of 6 and 25% FiO2. Patient will be tried on a CPAP trial today. 10/06/2020: No family at the bedside, spoke with critical care, patient was opening her eyes but continues to be encephalopathic. Patient on cefepime, will get pro-Kareem, if negative, DC antibiotics. Continues to be on CPAP and intubated. 10/07: No significant change clinically, patient remains on mechanical ventilation. discussed LT plan with Aunt and she is wanting a trach/peg and to take pt home with her; pt is a full code at this time. 10/08: General surgery consulted for trach and PEG placement. Patient remains on mechanical ventilation with diffuse anoxic brain injury status post cardiac arrest. Continue supportive care monitor clinically. Patient is full code very poor prognosis. 10/09/20; patient remains on ventilator with trach tube, started on tube feeding with PEG. Continue supportive care, vital stable. manager provider relations working on placement. 10/10/20: Patient mechanically ventilated with trach tube. Tolerating tube feeding. manager provider relations working on placement. Very poor prognosis need long-term placement. Subjective Date of service: 10/10/20 Principal diagnosis: Cardiac arrest; Ac. respiratory failure; Anoxic encephalopathy; PNA; NSTEMI Interval history: Patient seen and examined. Medical records and medication list reviewed. No acute event overnight noted by the RN. Patient on ventilator with trach tube, started on tube feeding with newly placed PICC manager provider relations working on placement Vitals stable No family member at the bedside Objective - Exam Narrative Exam: General appearance: Present: no acute distress, well-nourished, other (not responsive ) - EENT ENT: clear oral mucosa - Neck Neck: Present: supple, normal ROM, trach in place - Respiratory Respiratory effort: normal - Cardiovascular Rhythm: regular Heart Sounds: Present: S1 & S2 Peripheral Pulses: within normal limits - Abdominal General gastrointestinal: soft, non-tender, PEG in place - Integumentary Integumentary: Present: clear, warm, dry - Allied Health Allied health notes reviewed: nursing, case management - Constitutional Vitals: Vital Signs - 12hr 10/10/20 10/10/20 10/10/20 03:00 03:30 03:40 Temperature Pulse Rate 120 H 121 H 121 H Respiratory 22 15 Rate Blood Pressure 117/61 117/61 O2 Sat by Pulse 95 97 Oximetry O2 Sat by Pulse Oximetry [ Assessment] 10/10/20 10/10/20 10/10/20 03:59 04:00 04:30 Temperature 101.4 F H Pulse Rate 119 H 119 H Respiratory 18 25 H Rate Blood Pressure 114/61 114/61 O2 Sat by Pulse 95 97 Oximetry O2 Sat by Pulse Oximetry [ Assessment] 10/10/20 10/10/2021 04:58 05:00 05:30 Temperature Pulse Rate 121 H 122 H 122 H Respiratory 15 19 Rate Blood Pressure 114/61 106/62 106/62 O2 Sat by Pulse 96 94 97 Oximetry O2 Sat by Pulse Oximetry [ Assessment] 10/10/20 10/10/20 10/10/20 06:00 06:30 07:00 Temperature 98.7 F Pulse Rate 115 H 112 H 111 H Respiratory 14 18 15 Rate Blood Pressure 116/69 116/69 123/69 O2 Sat by Pulse 94 97 94 Oximetry O2 Sat by Pulse Oximetry [ Assessment] 10/10/20 10/10/20 10/10/20 07:30 08:00 08:30 Temperature Pulse Rate 110 H 109 H 112 H Respiratory 22 18 22 Rate Blood Pressure 123/69 119/61 119/61 O2 Sat by Pulse 96 96 97 Oximetry O2 Sat by Pulse Oximetry [ Assessment] 10/10/20 10/10/20 10/10/20 08:33 08:35 09:00 Temperature Pulse Rate 115 H 113 H Respiratory 29 H Rate Blood Pressure 116/69 127/62 O2 Sat by Pulse 94 95 Oximetry O2 Sat by Pulse 97 Oximetry [ Assessment] 10/10/20 10/10/20 10/10/20 09:20 09:21 09:30 Temperature Pulse Rate 112 H 112 H 115 H Respiratory 17 Rate Blood Pressure 127/62 127/62 127/62 O2 Sat by Pulse 97 Oximetry O2 Sat by Pulse Oximetry [ Assessment] 10/10/20 10/10/20 10/10/20 10:00 10:30 11:00 Temperature Pulse Rate 106 H 101 H 105 H Respiratory 20 21 23 Rate Blood Pressure 103/68 103/68 115/58 O2 Sat by Pulse 94 97 94 Oximetry O2 Sat by Pulse Oximetry [ Assessment] 10/10/20 11:45 Temperature Pulse Rate 105 H Respiratory Rate Blood Pressure 115/58 O2 Sat by Pulse 94 Oximetry O2 Sat by Pulse Oximetry [ Assessment] - Labs CBC & Chem 7: 10/10/20 03:42 10/10/20 03:42 Labs: Abnormal lab results 10/09/20 10/10/20 10/10/20 Range/Units 17:35 00:15 03:42 WBC 14.5 H (4.5-11.0) K/mm3 RBC 3.62 L (3.65-5.03) M/mm3 Hgb 9.1 L (10.1-14.3) gm/dl Hct 29.2 L (30.3-42.9) % MCH 25 L (28-32) pg RDW 24.2 H (13.2-15.2) % Plt Count 540 H (140-440) K/mm3 [place] % (Auto) 13.6 H (0.0-7.3) % [place] # (Auto) 2.0 H (0.0-0.8) K/mm3 Seg Neutrophils # 9.3 H (1.8-7.7) K/mm3 Sodium (137-145) mmol/L Chloride (98-107) mmol/L BUN (7-17) mg/dL Glucose (65-100) mg/dL POC Glucose 139 H 184 H (70-105) mg/dL 10/10/20 10/10/20 10/10/20 Range/Units 03:42 05:45 12:05 WBC (4.5-11.0) K/mm3 RBC (3.65-5.03) M/mm3 Hgb (10.1-14.3) gm/dl Hct (30.3-42.9) % MCH (28-32) pg RDW (13.2-15.2) % Plt Count (140-440) K/mm3 [place] % (Auto) (0.0-7.3) % [place] # (Auto) (0.0-0.8) K/mm3 Seg Neutrophils # (1.8-7.7) K/mm3 Sodium 132 L (137-145) mmol/L Chloride 97.4 L (98-107) mmol/L BUN 23 H (7-17) mg/dL Glucose 190 H (65-100) mg/dL POC Glucose 213 H 199 H (70-105) mg/dL HEART Score - HEART Score EKG: Normal Age: 45-65 Risk factors: No known risk factors Troponin: Troponin T < 0.010 ng/mL (0.00-0.029) 10/02/20 06:48 Troponin: < normal limit - Critical Actions Critical Actions: 0-3 pts:0.9-1.7%risk of adverse cardiac event.Candidate for discharge
[2020-10-10] MEDS: INSULIN LISPRO 100 UNIT/ML SUB-Q SCH (18:07)
[2020-10-10] MEDS: SENNOSIDES 8.6 MG TAB PO SCH (21:15)
[2020-10-11] MEDS: INSULIN LISPRO 100 UNIT/ML SUB-Q SCH ×4 (00:43→17:40)
[2020-10-11] MEDS: HEPARIN 5,000 UNIT/1 ML VIAL SUB-Q SCH ×3 (05:27→21:11)
[2020-10-11] MEDS: levETIRAcetam 500 MG/5 ML ORAL LIQD PO SCH ×2 (09:17→21:10)
[2020-10-11] MEDS: LOSARTAN 25 MG TAB PO SCH (09:18)
[2020-10-11] MEDS: MODAFINIL 100 MG TAB PO SCH (09:18)
[2020-10-11] MEDS: carvediloL 12.5 MG TAB PO SCH ×2 (09:18→21:10)
[2020-10-11] MEDS: ASPIRIN 81 MG TAB CHEW PO SCH (09:18)
[2020-10-11] MEDS: FAMOTIDINE 20 MG TAB PO SCH ×2 (09:19→21:11)
--- NOTE | 2020-10-11 11:33 | Progress Note ---
Assessment and Plan Cardiac arrest with return of spontaneous circulation. Acute respiratory failure, on mechanical ventilatory support. Acute toxic metabolic encephalopathy. Possible anoxic encephalopathy. Obesity. History of obesity hypoventilation syndrome. Leukocytosis. Likely aspiration pneumonia, bilateral. Anemia that is microcytic. Lactic acidosis. Elevated serum transaminases. Non-ST elevation myocardial infarction - continue low dose SSI - continue Daily SAT and SBT assessment as tolerated - continue scopolamine patch for secretion control - LTAC evaluation ongoing - continue care as below otherwise; - continue to wean supplemental oxygen for target O2 sat's > 90% acutely - VAP bundle addressed - continue lung protective strategies - continue bronchodilators with pulmonary hygiene per RT - wean per pulmonary driven protocols otherwise - continue accuchecks with glycemic control per SSI (While critically ill target blood glucose of 140-180 mg/dL; avoid hypoglycemia) - sedation prn for target RASS 0 to -1 - avoid nephrotoxins, renally dose all medications - continue to avoid benzodiazepine's, reduce the possibility of delirium - completed AB's per ID rec's - prn analgesia per CPOT score - Maintenance of sleep-wake cycle, avoid delirium - continue enteral nutritional support at goal rate as tolerated - G.I. & VTE prophylaxis - PT/OT/ROM exercises - continue mobility protocols for pressure ulcer prophylaxis - Monitor hemodynamics closely - continue other care per attending / other consultants - discharge planning ongoing concurrently COVID SPECIFIC INTERVENTIONS - COVID tests result was negative .... Re-evaluate in am & prn CONDITION: CRITICAL PROGNOSIS: GUARDED CODE STATUS: FULL CODE The high probability of a clinically significant, sudden or life-threatening deterioration of the [respiratory, cardiovascular & neurologic] system(s) required my full and direct attention, intervention and personal management. The aggregate critical care time was [35] minutes without overlap. Time includes spent on; [x] Data Review and interpretation [x] Patient assessment and monitoring of vital signs [x] Documentation [x] Medication orders and management Subjective Date of service: 10/11/20 Principal diagnosis: Cardiac arrest; Ac. respiratory failure; Anoxic encephalopathy; PNA; NSTEMI Interval history: Patient is seen today for: Cardiac arrest with ROSC; Acute respiratory failure; Anoxic encephalopathy; Obesity; OHS; Aspiration pneumonia; NSTEMI Seen and examined at bedside; 24hour events reviewed; nursing and respiratory care staff consulted; no adverse overnight events reported to me; resting in bed; remains on MVS; weaning better today; AMS is persistent Objective Vital Signs - 12hr 10/10/20 10/11/20 10/11/20 23:49 00:00 00:04 Temperature 100 F H Pulse Rate 104 H 105 H Respiratory 14 16 Rate Blood Pressure 95/49 95/49 O2 Sat by Pulse 95 97 Oximetry O2 Sat by Pulse Oximetry [ Assessment] 10/11/20 10/11/20 10/11/20 00:21 00:26 00:30 Temperature Pulse Rate 108 H 109 H Respiratory 18 Rate Blood Pressure 95/49 95/49 O2 Sat by Pulse 100 93 Oximetry O2 Sat by Pulse 99 Oximetry [ Assessment] 10/11/20 10/11/20 10/11/20 01:00 01:30 02:00 Temperature Pulse Rate 108 H 108 H 109 H Respiratory 15 14 11 L Rate Blood Pressure 114/58 114/58 101/62 O2 Sat by Pulse 94 97 96 Oximetry O2 Sat by Pulse Oximetry [ Assessment] 10/11/20 10/11/20 10/11/20 02:30 03:00 03:20 Temperature 99.9 F H Pulse Rate 107 H 111 H Respiratory 17 18 Rate Blood Pressure 101/62 115/67 O2 Sat by Pulse 97 96 Oximetry O2 Sat by Pulse Oximetry [ Assessment] 10/11/20 10/11/20 10/11/20 03:30 03:45 04:00 Temperature Pulse Rate 109 H 107 H 106 H Respiratory 13 16 Rate Blood Pressure 115/67 115/67 111/72 O2 Sat by Pulse 97 99 97 Oximetry O2 Sat by Pulse Oximetry [ Assessment] 10/11/20 10/11/20 10/11/20 04:31 05:00 05:31 Temperature Pulse Rate 108 H 105 H 109 H Respiratory 16 16 22 Rate Blood Pressure 109/61 109/61 O2 Sat by Pulse 100 97 100 Oximetry O2 Sat by Pulse Oximetry [ Assessment] 10/11/20 10/11/20 10/11/20 06:00 06:31 07:00 Temperature Pulse Rate 112 H 109 H 109 H Respiratory 19 20 15 Rate Blood Pressure 119/63 119/63 125/62 O2 Sat by Pulse 98 98 98 Oximetry O2 Sat by Pulse Oximetry [ Assessment] 10/11/20 10/11/20 10/11/20 07:31 08:00 08:31 Temperature Pulse Rate 106 H 105 H 103 H Respiratory 17 17 24 Rate Blood Pressure 125/62 117/64 117/64 O2 Sat by Pulse 97 99 98 Oximetry O2 Sat by Pulse 99 Oximetry [ Assessment] 10/11/20 10/11/20 10/11/20 08:45 09:00 09:18 Temperature Pulse Rate 108 H 107 H 108 H Respiratory 23 15 Rate Blood Pressure 124/64 124/64 124/64 O2 Sat by Pulse 98 97 Oximetry O2 Sat by Pulse Oximetry [ Assessment] 10/11/20 10/11/20 09:31 10:00 Temperature Pulse Rate 106 H 105 H Respiratory 21 22 Rate Blood Pressure 124/64 108/59 O2 Sat by Pulse 100 95 Oximetry O2 Sat by Pulse Oximetry [ Assessment] Constitutional: no acute distress, other (middle aged obese female with mildly increased respiratory effort at rest on MVS) Eyes: non-icteric ENT: oropharynx moist, other (+ midline tracheostomy) Neck: supple, no lymphadenopathy, no JVD Effort: mildly labored Ascultation: Bilateral: rhonchi Percussion: Bilateral: not dull Cardiovascular: regular rate and rhythm, other (S1,S2) Gastrointestinal: normoactive bowel sounds, soft, non-tender, non-distended Integumentary: normal Extremities: no cyanosis, no edema, pulses normal, no ischemia or petechiae Neurologic: pupils equal and round, unable to assess Psychiatric: other (unable to assess re: AMS) CBC and BMP: 10/12/20 05:18 10/12/20 05:18 ABG, PT/INR, D-dimer: ABG ABG pH 7.424 (7.320-7.450) 10/01/20 04:12 POC ABG pCO2 41.6 mmHg (32.0-48.0) 10/01/20 04:12 POC ABG pO2 73.0 mmHg (83-108) L 10/01/20 04:12 POC ABG HCO3 26.6 10/01/20 04:12 ABG O2 Saturation 94.3 (0-100) 10/01/20 04:12 PT/INR, D-dimer PT 13.7 Sec. (12.2-14.9) 09/25/20 18:15 INR 1.00 (0.87-1.13) 09/25/20 18:15 Abnormal lab findings: Abnormal Labs 09/25/20 09/25/20 09/25/20 17:19 17:21 18:15 WBC 13.8 H RBC Hgb 9.9 L Hct MCV 76 L MCH 23 L RDW 17.9 H Plt Count Lymph % (Auto) [place] % (Auto) Lymph # (Auto) [place] # (Auto) Seg Neutrophils % 78.6 H Seg Neuts % (Manual) Eosinophils % (Manual) Seg Neutrophils # 10.8 H Seg Neutrophils # Man Monocytes # (Manual) Eosinophils # (Manual) APTT Heparin Anti-Xa Level ABG pH POC ABG pCO2 26.2 L POC ABG pO2 554.5 H ABG Hemoglobin 9.0 L ABG Oxyhemoglobin 99.0 H ABG Sodium 134.5 L ABG Potassium ABG Chloride ABG Glucose 220 H Carboxyhemoglobin Sodium Potassium Chloride BUN Creatinine Glucose POC Glucose Lactic Acid Calcium Phosphorus AST ALT Troponin T C-Reactive Protein Albumin HDL Cholesterol Arterial Blood Glucose 220 H Arterial Blood Ionized Calcium 4.2 L Urine WBC (Auto) 14.0 H 09/25/20 09/25/20 09/25/20 18:15 18:15 18:15 WBC RBC Hgb Hct MCV MCH RDW Plt Count Lymph % (Auto) [place] % (Auto) Lymph # (Auto) [place] # (Auto) Seg Neutrophils % Seg Neuts % (Manual) Eosinophils % (Manual) Seg Neutrophils # Seg Neutrophils # Man Monocytes # (Manual) Eosinophils # (Manual) APTT 21.1 L Heparin Anti-Xa Level ABG pH POC ABG pCO2 POC ABG pO2 ABG Hemoglobin ABG Oxyhemoglobin ABG Sodium ABG Potassium ABG Chloride ABG Glucose Carboxyhemoglobin Sodium Potassium Chloride BUN Creatinine Glucose 113 H POC Glucose Lactic Acid 2.60 H* Calcium Phosphorus AST 162 H ALT 131 H Troponin T 0.096 H C-Reactive Protein Albumin HDL Cholesterol Arterial Blood Glucose Arterial Blood Ionized Calcium Urine WBC (Auto) 09/25/20 09/25/20 09/26/20 23:13 23:13 03:15 WBC RBC Hgb Hct MCV MCH RDW Plt Count Lymph % (Auto) [place] % (Auto) Lymph # (Auto) [place] # (Auto) Seg Neutrophils % Seg Neuts % (Manual) Eosinophils % (Manual) Seg Neutrophils # Seg Neutrophils # Man Monocytes # (Manual) Eosinophils # (Manual) APTT Heparin Anti-Xa Level ABG pH 7.451 H POC ABG pCO2 27.1 L POC ABG pO2 ABG Hemoglobin 10.4 L ABG Oxyhemoglobin ABG Sodium 135.2 L ABG Potassium ABG Chloride 108.0 H ABG Glucose 137 H Carboxyhemoglobin Sodium Potassium Chloride BUN Creatinine Glucose POC Glucose Lactic Acid 2.90 H* Calcium Phosphorus AST ALT Troponin T 0.170 H* D C-Reactive Protein Albumin HDL Cholesterol 60 H Arterial Blood Glucose 137 H Arterial Blood Ionized Calcium 4.2 L Urine WBC (Auto) 09/26/20 09/26/20 09/26/20 05:09 05:09 05:09 WBC 15.8 H RBC Hgb 10.0 L Hct MCV 77 L MCH 24 L RDW 17.8 H Plt Count Lymph % (Auto) 7.2 L [place] % (Auto) Lymph # (Auto) 1.1 L [place] # (Auto) 1.0 H Seg Neutrophils % 86.1 H Seg Neuts % (Manual) Eosinophils % (Manual) Seg Neutrophils # 13.6 H Seg Neutrophils # Man Monocytes # (Manual) Eosinophils # (Manual) APTT Heparin Anti-Xa Level ABG pH POC ABG pCO2 POC ABG pO2 ABG Hemoglobin ABG Oxyhemoglobin ABG Sodium ABG Potassium ABG Chloride ABG Glucose Carboxyhemoglobin Sodium Potassium Chloride BUN Creatinine Glucose 114 H POC Glucose Lactic Acid 2.40 H* Calcium 8.1 L Phosphorus AST 112 H ALT 103 H Troponin T C-Reactive Protein Albumin 3.8 L HDL Cholesterol Arterial Blood Glucose Arterial Blood Ionized Calcium Urine WBC (Auto) 09/26/20 09/27/20 09/27/20 15:45 03:33 04:41 WBC RBC Hgb 9.0 L Hct 28.6 L MCV MCH RDW Plt Count Lymph % (Auto) [place] % (Auto) Lymph # (Auto) [place] # (Auto) Seg Neutrophils % Seg Neuts % (Manual) Eosinophils % (Manual) Seg Neutrophils # Seg Neutrophils # Man Monocytes # (Manual) Eosinophils # (Manual) APTT Heparin Anti-Xa Level ABG pH POC ABG pCO2 POC ABG pO2 141.6 H ABG Hemoglobin 9.3 L ABG Oxyhemoglobin ABG Sodium ABG Potassium 3.2 L ABG Chloride 108.0 H ABG Glucose 118 H Carboxyhemoglobin Sodium Potassium Chloride BUN Creatinine Glucose POC Glucose Lactic Acid Calcium Phosphorus 2.20 L AST ALT Troponin T C-Reactive Protein 4.30 H Albumin HDL Cholesterol Arterial Blood Glucose 118 H Arterial Blood Ionized Calcium 4.2 L Urine WBC (Auto) 09/27/20 09/27/20 09/28/20 04:41 22:53 04:00 WBC RBC Hgb Hct MCV MCH RDW Plt Count Lymph % (Auto) [place] % (Auto) Lymph # (Auto) [place] # (Auto) Seg Neutrophils % Seg Neuts % (Manual) Eosinophils % (Manual) Seg Neutrophils # Seg Neutrophils # Man Monocytes # (Manual) Eosinophils # (Manual) APTT Heparin Anti-Xa Level 0.75 H ABG pH 7.467 H POC ABG pCO2 POC ABG pO2 78.9 L ABG Hemoglobin 9.8 L ABG Oxyhemoglobin ABG Sodium ABG Potassium ABG Chloride ABG Glucose 141 H Carboxyhemoglobin Sodium Potassium Chloride BUN Creatinine Glucose POC Glucose 109 H Lactic Acid Calcium Phosphorus AST ALT Troponin T C-Reactive Protein Albumin HDL Cholesterol Arterial Blood Glucose 141 H Arterial Blood Ionized Calcium Urine WBC (Auto) 09/28/20 09/28/20 09/28/20 05:02 05:02 17:42 WBC 11.9 H RBC Hgb 9.3 L Hct 29.5 L MCV 76 L MCH 24 L RDW 19.4 H Plt Count Lymph % (Auto) [place] % (Auto) 11.1 H Lymph # (Auto) [place] # (Auto) 1.3 H Seg Neutrophils % 72.5 H Seg Neuts % (Manual) Eosinophils % (Manual) Seg Neutrophils # 8.6 H Seg Neutrophils # Man Monocytes # (Manual) Eosinophils # (Manual) APTT Heparin Anti-Xa Level ABG pH POC ABG pCO2 POC ABG pO2 ABG Hemoglobin ABG Oxyhemoglobin ABG Sodium ABG Potassium ABG Chloride ABG Glucose Carboxyhemoglobin Sodium Potassium 3.4 L Chloride BUN Creatinine Glucose 126 H POC Glucose 69 L Lactic Acid Calcium Phosphorus AST 129 H ALT 60 H Troponin T C-Reactive Protein Albumin 3.7 L HDL Cholesterol Arterial Blood Glucose Arterial Blood Ionized Calcium Urine WBC (Auto) 09/29/20 09/29/20 09/29/20 04:00 05:53 08:39 WBC RBC Hgb 10.0 L Hct MCV MCH RDW Plt Count Lymph % (Auto) [place] % (Auto) Lymph # (Auto) [place] # (Auto) Seg Neutrophils % Seg Neuts % (Manual) Eosinophils % (Manual) Seg Neutrophils # Seg Neutrophils # Man Monocytes # (Manual) Eosinophils # (Manual) APTT Heparin Anti-Xa Level ABG pH POC ABG pCO2 POC ABG pO2 81.1 L ABG Hemoglobin 11.0 L ABG Oxyhemoglobin ABG Sodium ABG Potassium ABG Chloride 110.0 H ABG Glucose 129 H Carboxyhemoglobin Sodium Potassium Chloride BUN Creatinine Glucose POC Glucose 58 L Lactic Acid Calcium Phosphorus AST ALT Troponin T C-Reactive Protein Albumin HDL Cholesterol Arterial Blood Glucose 129 H Arterial Blood Ionized Calcium Urine WBC (Auto) 09/30/20 09/30/20 09/30/20 00:10 10:45 15:05 WBC 12.5 H RBC Hgb 9.9 L Hct MCV 78 L MCH 24 L RDW 21.0 H Plt Count Lymph % (Auto) [place] % (Auto) 13.5 H Lymph # (Auto) [place] # (Auto) 1.7 H Seg Neutrophils % Seg Neuts % (Manual) Eosinophils % (Manual) Seg Neutrophils # 8.1 H Seg Neutrophils # Man Monocytes # (Manual) Eosinophils # (Manual) APTT Heparin Anti-Xa Level ABG pH 7.469 H POC ABG pCO2 POC ABG pO2 ABG Hemoglobin 10.4 L ABG Oxyhemoglobin ABG Sodium 146.2 H ABG Potassium ABG Chloride 109.0 H ABG Glucose 155 H Carboxyhemoglobin Sodium Potassium Chloride BUN Creatinine Glucose POC Glucose 131 H Lactic Acid Calcium Phosphorus AST ALT Troponin T C-Reactive Protein Albumin HDL Cholesterol Arterial Blood Glucose 155 H Arterial Blood Ionized Calcium Urine WBC (Auto) 09/30/20 09/30/20 10/01/20 15:05 17:37 00:29 WBC RBC Hgb Hct MCV MCH RDW Plt Count Lymph % (Auto) [place] % (Auto) Lymph # (Auto) [place] # (Auto) Seg Neutrophils % Seg Neuts % (Manual) Eosinophils % (Manual) Seg Neutrophils # Seg Neutrophils # Man Monocytes # (Manual) Eosinophils # (Manual) APTT Heparin Anti-Xa Level ABG pH POC ABG pCO2 POC ABG pO2 ABG Hemoglobin ABG Oxyhemoglobin ABG Sodium ABG Potassium ABG Chloride ABG Glucose Carboxyhemoglobin Sodium Potassium Chloride 109.1 H BUN 18 H Creatinine 1.4 H Glucose 122 H POC Glucose 127 H 119 H Lactic Acid Calcium Phosphorus 2.00 L AST ALT Troponin T C-Reactive Protein Albumin HDL Cholesterol Arterial Blood Glucose Arterial Blood Ionized Calcium Urine WBC (Auto) 10/01/20 10/01/20 10/01/20 04:12 05:56 05:56 WBC 14.2 H RBC Hgb 9.7 L Hct MCV 78 L MCH 23 L RDW 21.1 H Plt Count Lymph % (Auto) [place] % (Auto) Lymph # (Auto) [place] # (Auto) Seg Neutrophils % Seg Neuts % (Manual) Eosinophils % (Manual) Seg Neutrophils # Seg Neutrophils # Man Monocytes # (Manual) Eosinophils # (Manual) APTT Heparin Anti-Xa Level ABG pH POC ABG pCO2 POC ABG pO2 73.0 L ABG Hemoglobin 10.0 L ABG Oxyhemoglobin 93.7 L ABG Sodium 146.4 H ABG Potassium ABG Chloride 110.0 H ABG Glucose 124 H Carboxyhemoglobin 0.3 L Sodium 147 H Potassium Chloride 109.6 H BUN Creatinine Glucose 109 H POC Glucose Lactic Acid Calcium Phosphorus AST ALT Troponin T C-Reactive Protein Albumin HDL Cholesterol Arterial Blood Glucose 124 H Arterial Blood Ionized Calcium Urine WBC (Auto) 10/01/20 10/01/20 10/02/20 19:21 23:17 05:27 WBC RBC Hgb Hct MCV MCH RDW Plt Count Lymph % (Auto) [place] % (Auto) Lymph # (Auto) [place] # (Auto) Seg Neutrophils % Seg Neuts % (Manual) Eosinophils % (Manual) Seg Neutrophils # Seg Neutrophils # Man Monocytes # (Manual) Eosinophils # (Manual) APTT Heparin Anti-Xa Level ABG pH POC ABG pCO2 POC ABG pO2 ABG Hemoglobin ABG Oxyhemoglobin ABG Sodium ABG Potassium ABG Chloride ABG Glucose Carboxyhemoglobin Sodium Potassium Chloride BUN Creatinine Glucose POC Glucose 126 H 160 H 121 H Lactic Acid Calcium Phosphorus AST ALT Troponin T C-Reactive Protein Albumin HDL Cholesterol Arterial Blood Glucose Arterial Blood Ionized Calcium Urine WBC (Auto) 10/02/20 10/02/20 10/02/20 06:48 06:48 11:51 WBC 14.2 H RBC Hgb 9.6 L Hct MCV MCH 25 L RDW 21.7 H Plt Count Lymph % (Auto) [place] % (Auto) Lymph # (Auto) [place] # (Auto) Seg Neutrophils % Seg Neuts % (Manual) Eosinophils % (Manual) Seg Neutrophils # Seg Neutrophils # Man Monocytes # (Manual) Eosinophils # (Manual) APTT Heparin Anti-Xa Level ABG pH POC ABG pCO2 POC ABG pO2 ABG Hemoglobin ABG Oxyhemoglobin ABG Sodium ABG Potassium ABG Chloride ABG Glucose Carboxyhemoglobin Sodium 147 H Potassium Chloride 110.4 H BUN Creatinine Glucose 134 H POC Glucose 121 H Lactic Acid Calcium Phosphorus 2.20 L AST ALT Troponin T C-Reactive Protein Albumin HDL Cholesterol Arterial Blood Glucose Arterial Blood Ionized Calcium Urine WBC (Auto) 10/02/20 10/03/20 10/03/20 17:19 00:35 07:24 WBC 12.9 H RBC Hgb 8.9 L Hct 29.6 L MCV MCH 24 L RDW 21.9 H Plt Count Lymph % (Auto) [place] % (Auto) Lymph # (Auto) [place] # (Auto) Seg Neutrophils % Seg Neuts % (Manual) Eosinophils % (Manual) Seg Neutrophils # Seg Neutrophils # Man Monocytes # (Manual) Eosinophils # (Manual) APTT Heparin Anti-Xa Level ABG pH POC ABG pCO2 POC ABG pO2 ABG Hemoglobin ABG Oxyhemoglobin ABG Sodium ABG Potassium ABG Chloride ABG Glucose Carboxyhemoglobin Sodium Potassium Chloride BUN Creatinine Glucose POC Glucose 107 H 112 H Lactic Acid Calcium Phosphorus AST ALT Troponin T C-Reactive Protein Albumin HDL Cholesterol Arterial Blood Glucose Arterial Blood Ionized Calcium Urine WBC (Auto) 10/03/20 10/03/20 10/03/20 07:24 17:27 20:19 WBC RBC Hgb Hct MCV MCH RDW Plt Count Lymph % (Auto) [place] % (Auto) Lymph # (Auto) [place] # (Auto) Seg Neutrophils % Seg Neuts % (Manual) Eosinophils % (Manual) Seg Neutrophils # Seg Neutrophils # Man Monocytes # (Manual) Eosinophils # (Manual) APTT Heparin Anti-Xa Level 0.18 L ABG pH POC ABG pCO2 POC ABG pO2 ABG Hemoglobin ABG Oxyhemoglobin ABG Sodium ABG Potassium ABG Chloride ABG Glucose Carboxyhemoglobin Sodium 147 H Potassium Chloride 110.4 H BUN Creatinine Glucose 128 H POC Glucose 136 H Lactic Acid Calcium Phosphorus AST ALT Troponin T C-Reactive Protein Albumin HDL Cholesterol Arterial Blood Glucose Arterial Blood Ionized Calcium Urine WBC (Auto) 10/03/20 10/04/20 10/04/20 23:34 04:07 06:12 WBC RBC Hgb Hct MCV MCH RDW Plt Count Lymph % (Auto) [place] % (Auto) Lymph # (Auto) [place] # (Auto) Seg Neutrophils % Seg Neuts % (Manual) Eosinophils % (Manual) Seg Neutrophils # Seg Neutrophils # Man Monocytes # (Manual) Eosinophils # (Manual) APTT Heparin Anti-Xa Level 0.25 L ABG pH POC ABG pCO2 POC ABG pO2 ABG Hemoglobin ABG Oxyhemoglobin ABG Sodium ABG Potassium ABG Chloride ABG Glucose Carboxyhemoglobin Sodium Potassium Chloride BUN Creatinine Glucose POC Glucose 119 H 128 H Lactic Acid Calcium Phosphorus AST ALT Troponin T C-Reactive Protein Albumin HDL Cholesterol Arterial Blood Glucose Arterial Blood Ionized Calcium Urine WBC (Auto) 10/04/20 10/04/20 10/05/20 11:38 17:39 00:17 WBC RBC Hgb Hct MCV MCH RDW Plt Count Lymph % (Auto) [place] % (Auto) Lymph # (Auto) [place] # (Auto) Seg Neutrophils % Seg Neuts % (Manual) Eosinophils % (Manual) Seg Neutrophils # Seg Neutrophils # Man Monocytes # (Manual) Eosinophils # (Manual) APTT Heparin Anti-Xa Level ABG pH POC ABG pCO2 POC ABG pO2 ABG Hemoglobin ABG Oxyhemoglobin ABG Sodium ABG Potassium ABG Chloride ABG Glucose Carboxyhemoglobin Sodium Potassium Chloride BUN Creatinine Glucose POC Glucose 129 H 136 H 125 H Lactic Acid Calcium Phosphorus AST ALT Troponin T C-Reactive Protein Albumin HDL Cholesterol Arterial Blood Glucose Arterial Blood Ionized Calcium Urine WBC (Auto) 10/05/20 10/05/20 10/05/20 04:17 04:17 05:31 WBC 13.0 H RBC Hgb 9.1 L Hct 29.5 L MCV MCH 25 L RDW 22.2 H Plt Count Lymph % (Auto) [place] % (Auto) Lymph # (Auto) [place] # (Auto) Seg Neutrophils % Seg Neuts % (Manual) Eosinophils % (Manual) Seg Neutrophils # Seg Neutrophils # Man Monocytes # (Manual) Eosinophils # (Manual) APTT Heparin Anti-Xa Level ABG pH POC ABG pCO2 POC ABG pO2 ABG Hemoglobin ABG Oxyhemoglobin ABG Sodium ABG Potassium ABG Chloride ABG Glucose Carboxyhemoglobin Sodium Potassium Chloride BUN Creatinine Glucose 148 H POC Glucose 160 H Lactic Acid Calcium Phosphorus AST ALT Troponin T C-Reactive Protein Albumin HDL Cholesterol Arterial Blood Glucose Arterial Blood Ionized Calcium Urine WBC (Auto) 10/05/20 10/05/20 10/05/20 12:09 17:33 23:30 WBC RBC Hgb Hct MCV MCH RDW Plt Count Lymph % (Auto) [place] % (Auto) Lymph # (Auto) [place] # (Auto) Seg Neutrophils % Seg Neuts % (Manual) Eosinophils % (Manual) Seg Neutrophils # Seg Neutrophils # Man Monocytes # (Manual) Eosinophils # (Manual) APTT Heparin Anti-Xa Level ABG pH POC ABG pCO2 POC ABG pO2 ABG Hemoglobin ABG Oxyhemoglobin ABG Sodium ABG Potassium ABG Chloride ABG Glucose Carboxyhemoglobin Sodium Potassium Chloride BUN Creatinine Glucose POC Glucose 148 H 135 H 142 H Lactic Acid Calcium Phosphorus AST ALT Troponin T C-Reactive Protein Albumin HDL Cholesterol Arterial Blood Glucose Arterial Blood Ionized Calcium Urine WBC (Auto) 10/06/20 10/06/20 10/06/20 04:37 05:35 10:55 WBC RBC Hgb Hct MCV MCH RDW Plt Count Lymph % (Auto) [place] % (Auto) Lymph # (Auto) [place] # (Auto) Seg Neutrophils % Seg Neuts % (Manual) Eosinophils % (Manual) Seg Neutrophils # Seg Neutrophils # Man Monocytes # (Manual) Eosinophils # (Manual) APTT Heparin Anti-Xa Level ABG pH POC ABG pCO2 POC ABG pO2 ABG Hemoglobin ABG Oxyhemoglobin ABG Sodium ABG Potassium ABG Chloride ABG Glucose Carboxyhemoglobin Sodium 136 L Potassium Chloride BUN Creatinine Glucose 184 H POC Glucose 151 H 163 H Lactic Acid Calcium Phosphorus AST 66 H ALT Troponin T C-Reactive Protein Albumin 3.3 L HDL Cholesterol Arterial Blood Glucose Arterial Blood Ionized Calcium Urine WBC (Auto) 10/06/20 10/06/20 10/07/20 16:41 23:31 05:24 WBC RBC Hgb Hct MCV MCH RDW Plt Count Lymph % (Auto) [place] % (Auto) Lymph # (Auto) [place] # (Auto) Seg Neutrophils % Seg Neuts % (Manual) Eosinophils % (Manual) Seg Neutrophils # Seg Neutrophils # Man Monocytes # (Manual) Eosinophils # (Manual) APTT Heparin Anti-Xa Level ABG pH POC ABG pCO2 POC ABG pO2 ABG Hemoglobin ABG Oxyhemoglobin ABG Sodium ABG Potassium ABG Chloride ABG Glucose Carboxyhemoglobin Sodium Potassium Chloride BUN Creatinine Glucose POC Glucose 156 H 190 H 194 H Lactic Acid Calcium Phosphorus AST ALT Troponin T C-Reactive Protein Albumin HDL Cholesterol Arterial Blood Glucose Arterial Blood Ionized Calcium Urine WBC (Auto) 10/07/20 10/07/20 10/07/20 11:48 17:50 18:12 WBC 15.7 H RBC Hgb 9.2 L Hct 30.1 L MCV MCH 25 L RDW 24.1 H Plt Count 514 H Lymph % (Auto) [place] % (Auto) Lymph # (Auto) [place] # (Auto) Seg Neutrophils % Seg Neuts % (Manual) 71.0 H Eosinophils % (Manual) 5.0 H Seg Neutrophils # Seg Neutrophils # Man 11.1 H Monocytes # (Manual) 1.1 H Eosinophils # (Manual) 0.8 H APTT Heparin Anti-Xa Level ABG pH POC ABG pCO2 POC ABG pO2 ABG Hemoglobin ABG Oxyhemoglobin ABG Sodium ABG Potassium ABG Chloride ABG Glucose Carboxyhemoglobin Sodium Potassium Chloride BUN Creatinine Glucose POC Glucose 203 H 191 H Lactic Acid Calcium Phosphorus AST ALT Troponin T C-Reactive Protein Albumin HDL Cholesterol Arterial Blood Glucose Arterial Blood Ionized Calcium Urine WBC (Auto) 10/07/20 10/08/20 10/08/20 23:40 04:22 04:22 WBC 15.2 H RBC Hgb 9.6 L Hct MCV MCH 24 L RDW 23.3 H Plt Count 517 H Lymph % (Auto) [place] % (Auto) Lymph # (Auto) [place] # (Auto) Seg Neutrophils % Seg Neuts % (Manual) Eosinophils % (Manual) Seg Neutrophils # Seg Neutrophils # Man Monocytes # (Manual) Eosinophils # (Manual) APTT Heparin Anti-Xa Level ABG pH POC ABG pCO2 POC ABG pO2 ABG Hemoglobin ABG Oxyhemoglobin ABG Sodium ABG Potassium ABG Chloride ABG Glucose Carboxyhemoglobin Sodium Potassium Chloride BUN 18 H Creatinine Glucose 150 H POC Glucose 191 H Lactic Acid Calcium 10.3 H Phosphorus AST 63 H ALT Troponin T C-Reactive Protein Albumin HDL Cholesterol Arterial Blood Glucose Arterial Blood Ionized Calcium Urine WBC (Auto) 10/08/20 10/08/20 10/08/20 05:41 11:53 16:17 WBC RBC Hgb Hct MCV MCH RDW Plt Count Lymph % (Auto) [place] % (Auto) Lymph # (Auto) [place] # (Auto) Seg Neutrophils % Seg Neuts % (Manual) Eosinophils % (Manual) Seg Neutrophils # Seg Neutrophils # Man Monocytes # (Manual) Eosinophils # (Manual) APTT Heparin Anti-Xa Level ABG pH POC ABG pCO2 POC ABG pO2 ABG Hemoglobin ABG Oxyhemoglobin ABG Sodium ABG Potassium ABG Chloride ABG Glucose Carboxyhemoglobin Sodium Potassium Chloride BUN Creatinine Glucose POC Glucose 125 H 116 H 141 H Lactic Acid Calcium Phosphorus AST ALT Troponin T C-Reactive Protein Albumin HDL Cholesterol Arterial Blood Glucose Arterial Blood Ionized Calcium Urine WBC (Auto) 10/08/20 10/09/20 10/09/20 23:24 04:07 04:07 WBC 14.2 H RBC Hgb 9.6 L Hct MCV MCH 24 L RDW 23.5 H Plt Count 543 H Lymph % (Auto) [place] % (Auto) 10.4 H Lymph # (Auto) [place] # (Auto) 1.5 H Seg Neutrophils % 70.9 H Seg Neuts % (Manual) Eosinophils % (Manual) Seg Neutrophils # 10.1 H Seg Neutrophils # Man Monocytes # (Manual) Eosinophils # (Manual) APTT Heparin Anti-Xa Level ABG pH POC ABG pCO2 POC ABG pO2 ABG Hemoglobin ABG Oxyhemoglobin ABG Sodium ABG Potassium ABG Chloride ABG Glucose Carboxyhemoglobin Sodium Potassium Chloride BUN 18 H Creatinine Glucose 152 H POC Glucose 114 H Lactic Acid Calcium Phosphorus AST ALT Troponin T C-Reactive Protein Albumin HDL Cholesterol Arterial Blood Glucose Arterial Blood Ionized Calcium Urine WBC (Auto) 10/09/20 10/09/20 10/10/20 11:51 17:35 00:15 WBC RBC Hgb Hct MCV MCH RDW Plt Count Lymph % (Auto) [place] % (Auto) Lymph # (Auto) [place] # (Auto) Seg Neutrophils % Seg Neuts % (Manual) Eosinophils % (Manual) Seg Neutrophils # Seg Neutrophils # Man Monocytes # (Manual) Eosinophils # (Manual) APTT Heparin Anti-Xa Level ABG pH POC ABG pCO2 POC ABG pO2 ABG Hemoglobin ABG Oxyhemoglobin ABG Sodium ABG Potassium ABG Chloride ABG Glucose Carboxyhemoglobin Sodium Potassium Chloride BUN Creatinine Glucose POC Glucose 134 H 139 H 184 H Lactic Acid Calcium Phosphorus AST ALT Troponin T C-Reactive Protein Albumin HDL Cholesterol Arterial Blood Glucose Arterial Blood Ionized Calcium Urine WBC (Auto) 10/10/20 10/10/20 10/10/20 03:42 03:42 05:45 WBC 14.5 H RBC 3.62 L Hgb 9.1 L Hct 29.2 L MCV MCH 25 L RDW 24.2 H Plt Count 540 H Lymph % (Auto) [place] % (Auto) 13.6 H Lymph # (Auto) [place] # (Auto) 2.0 H Seg Neutrophils % Seg Neuts % (Manual) Eosinophils % (Manual) Seg Neutrophils # 9.3 H Seg Neutrophils # Man Monocytes # (Manual) Eosinophils # (Manual) APTT Heparin Anti-Xa Level ABG pH POC ABG pCO2 POC ABG pO2 ABG Hemoglobin ABG Oxyhemoglobin ABG Sodium ABG Potassium ABG Chloride ABG Glucose Carboxyhemoglobin Sodium 132 L Potassium Chloride 97.4 L BUN 23 H Creatinine Glucose 190 H POC Glucose 213 H Lactic Acid Calcium Phosphorus AST ALT Troponin T C-Reactive Protein Albumin HDL Cholesterol Arterial Blood Glucose Arterial Blood Ionized Calcium Urine WBC (Auto) 10/10/20 10/10/20 10/10/20 12:05 17:51 23:37 WBC RBC Hgb Hct MCV MCH RDW Plt Count Lymph % (Auto) [place] % (Auto) Lymph # (Auto) [place] # (Auto) Seg Neutrophils % Seg Neuts % (Manual) Eosinophils % (Manual) Seg Neutrophils # Seg Neutrophils # Man Monocytes # (Manual) Eosinophils # (Manual) APTT Heparin Anti-Xa Level ABG pH POC ABG pCO2 POC ABG pO2 ABG Hemoglobin ABG Oxyhemoglobin ABG Sodium ABG Potassium ABG Chloride ABG Glucose Carboxyhemoglobin Sodium Potassium Chloride BUN Creatinine Glucose POC Glucose 199 H 170 H 225 H Lactic Acid Calcium Phosphorus AST ALT Troponin T C-Reactive Protein Albumin HDL Cholesterol Arterial Blood Glucose Arterial Blood Ionized Calcium Urine WBC (Auto) 10/11/20 05:02 WBC RBC Hgb Hct MCV MCH RDW Plt Count Lymph % (Auto) [place] % (Auto) Lymph # (Auto) [place] # (Auto) Seg Neutrophils % Seg Neuts % (Manual) Eosinophils % (Manual) Seg Neutrophils # Seg Neutrophils # Man Monocytes # (Manual) Eosinophils # (Manual) APTT Heparin Anti-Xa Level ABG pH POC ABG pCO2 POC ABG pO2 ABG Hemoglobin ABG Oxyhemoglobin ABG Sodium ABG Potassium ABG Chloride ABG Glucose Carboxyhemoglobin Sodium Potassium Chloride BUN Creatinine Glucose POC Glucose 190 H Lactic Acid Calcium Phosphorus AST ALT Troponin T C-Reactive Protein Albumin HDL Cholesterol Arterial Blood Glucose Arterial Blood Ionized Calcium Urine WBC (Auto) Chest x-ray: other (none today) Allied health notes reviewed: nursing
--- NOTE | 2020-10-11 14:55 | Progress Note ---
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 neuro etiology trend temp and WBC curve last cultures on 09/25 no antibiotics at this time --Morbid obesity avoid hypoglycemia currently on no SSI- continue to monitor for need with inc in TF rate Disposition Plan: LTC v home with family Total Time Spent with Patient (Minutes): 60 Brief history: 45-year-old female with obesity hypoventilation syndrome and GERD who presented to the emergency department on 09/25/20 s/p cardiac arrest via EMS. Per EMS staff they were notified for shortness of breath and upon arrival patient was found to be in distress and subsequently went into cardiac arrest and she was treated in accordance to ACLS protocol and intubated in the field and transported to [facility]. Evaluation in the emergency department upon arrival to the emergency department patient was found to have pe rsistent hypoxic respiratory failure and was maintained on ventilator support. Work-up revealed sepsis, pneumonia, seizure disorder, metabolic acidosis as well as NSTEMI. Cardiology, neurology, CCM were consulted. Daily clinical course: 09/26/20: Patient was admitted with out of the hospital cardiac arrest status post CPR per ACLS protocols Anoxic brain injury, unresponsive Orally intubated on ventilatory support Vital signs reviewed. called patient's aunt , STAN Minor at [phone] and discussed in detail, patient's condition, tests and reports, consu ltants recommendations, poor prognosis, treatment plan[explained in detail the medications and their role in the treatment] pending tests. 09/27/2020; patient remains unresponsive, intubated on ventilatory support Follow neurology evaluation and recommendations 10/01: Patient has persistent leukocytosis and hyperchloremia. Patient now has hypernatremia and renal function has improved to CR/BUN 1.115 from 1.08/04. Patient has hypophosphatemia which was repleted yesterday and we will obtain a.m . labs. Patient has MRI brain pending. Family updated by neurology over the phone and TRUCK LOADER AND UNLOADER at bedside. Patient niece was at bedside today and she will defer goals of care decision after MRI results. EEG findings were explained. According to her the patient was in found to be unresponsive by family and was given bystander CPR before arrival of EMS. 10/02: Patient received MRI brain today which showed diffuse cerebral restricted diffusion consistent with global anoxic brain injury, no associated hemorrhage or herniation and additional small acute lacunar infarct in the right paracentral lesia. 10/03: Cardiology will follow the patient peripherally given poor prognosis, Dr. Alvarado and has spoken to the family regarding prognosis today. Given hypotension patient will receive lower doses of blood pressure medicine and per psychologist social request a referral to [facility]. 10/04: Patient bilateral Doppler ultrasound are negative and heparin drip has been stopped. [facility] referral made by CM which was denied. Family is aware. No acute events reported overnight. Patient family was at bedside and updated by neurologist. Explained to them that pt. is not brain but is with significant brain injury, she is off sedation for a week with no clear changes in her clinical presentation. 10/05: Today patient is no longer hypernatremic so free water flushes were resume at the rate nutrition as ordered. Decrease in Cozaar today patient's T-max 100.7 which was responsive to Tylenol. At the time examination patient is on assist control tidal volume 450, rate of 12, PEEP of 6 and 25% FiO2. Patient will be tried on a CPAP trial today. 10/06/2020: No family at the bedside, spoke with critical care, patient was opening her eyes but continues to be encephalopathic. Patient on cefepime, will get pro-Kareem, if negative, DC antibiotics. Continues to be on CPAP and intubated. 10/07: No significant change clinically, patient remains on mechanical ventilation. discussed LT plan with Aunt and she is wanting a trach/peg and to take pt home with her; pt is a full code at this time. 10/08: General surgery consulted for trach and PEG placement. Patient remains on mechanical ventilation with diffuse anoxic brain injury status post cardiac arrest. Continue supportive care monitor clinically. Patient is full code very poor prognosis. 10/09/20; patient remains on ventilator with trach tube, started on tube feeding with PEG. Continue supportive care, vital stable. field sales manager working on placement. 10/10/20: Patient mechanically ventilated with trach tube. Tolerating tube feeding. field sales manager working on placement. Very poor prognosis need long-term placement. 10/11/20; patient remains mechanically ventilated via trach tube. Critical care working on to wean off from the vent. Very poor prognosis. Continue supportive care and pending placement. Subjective Date of service: 10/11/20 Principal diagnosis: Cardiac arrest; Ac. respiratory failure; Anoxic encephalopathy; PNA; NSTEMI Interval history: Patient seen and examined. Medical records and medication list reviewed. No acute event overnight noted by the RN. Patient on ventilator with trach tube, started on tube feeding with newly placed PICC field sales manager working on placement Vitals stable No family member at the bedside Objective - Exam Narrative Exam: General appearance: Present: no acute distress, well-nourished, other (not responsive ) - EENT ENT: clear oral mucosa - Neck Neck: Present: supple, normal ROM, trach in place - Respiratory Respiratory effort: normal - Cardiovascular Rhythm: regular Heart Sounds: Present: S1 & S2 Peripheral Pulses: within normal limits - Abdominal General gastrointestinal: soft, non-tender, PEG in place - Integumentary Integumentary: Present: clear, warm, dry - Allied Health Allied health notes reviewed: nursing, case management - Constitutional Vitals: Vital Signs - 12hr 10/11/20 10/11/20 10/11/20 03:00 03:20 03:30 Temperature 99.9 F H Pulse Rate 111 H 109 H Respiratory 18 13 Rate Blood Pressure 115/67 115/67 O2 Sat by Pulse 96 97 Oximetry O2 Sat by Pulse Oximetry [ Assessment] 10/11/20 10/11/20 10/11/20 03:45 04:00 04:31 Temperature Pulse Rate 107 H 106 H 108 H Respiratory 16 16 Rate Blood Pressure 115/67 111/72 O2 Sat by Pulse 99 97 100 Oximetry O2 Sat by Pulse Oximetry [ Assessment] 10/11/20 10/11/20 10/11/20 05:00 05:31 06:00 Temperature Pulse Rate 105 H 109 H 112 H Respiratory 16 22 19 Rate Blood Pressure 109/61 109/61 119/63 O2 Sat by Pulse 97 100 98 Oximetry O2 Sat by Pulse Oximetry [ Assessment] 10/11/20 10/11/20 10/11/20 06:31 07:00 07:31 Temperature Pulse Rate 109 H 109 H 106 H Respiratory 20 15 17 Rate Blood Pressure 119/63 125/62 125/62 O2 Sat by Pulse 98 98 97 Oximetry O2 Sat by Pulse Oximetry [ Assessment] 10/11/20 10/11/20 10/11/20 08:00 08:31 08:45 Temperature Pulse Rate 105 H 103 H 108 H Respiratory 17 24 23 Rate Blood Pressure 117/64 117/64 124/64 O2 Sat by Pulse 99 98 98 Oximetry O2 Sat by Pulse 99 Oximetry [ Assessment] 10/11/20 10/11/20 10/11/20 09:00 09:18 09:31 Temperature Pulse Rate 107 H 108 H 106 H Respiratory 15 21 Rate Blood Pressure 124/64 124/64 124/64 O2 Sat by Pulse 97 100 Oximetry O2 Sat by Pulse Oximetry [ Assessment] 10/11/20 10/11/20 10/11/20 10:00 10:31 11:00 Temperature Pulse Rate 105 H 101 H 101 H Respiratory 22 20 19 Rate Blood Pressure 108/59 108/59 103/58 O2 Sat by Pulse 95 97 95 Oximetry O2 Sat by Pulse Oximetry [ Assessment] 10/11/20 10/11/20 10/11/20 11:31 11:40 12:00 Temperature 98.5 F Pulse Rate 105 H 103 H 105 H Respiratory 20 22 16 Rate Blood Pressure 103/58 117/57 O2 Sat by Pulse 99 97 99 Oximetry O2 Sat by Pulse Oximetry [ Assessment] 10/11/20 10/11/20 10/11/20 12:31 13:00 13:31 Temperature Pulse Rate 103 H 105 H 109 H Respiratory 24 24 20 Rate Blood Pressure 117/57 104/56 104/56 O2 Sat by Pulse 99 97 100 Oximetry O2 Sat by Pulse Oximetry [ Assessment] 10/11/20 14:00 Temperature Pulse Rate 111 H Respiratory 17 Rate Blood Pressure 114/63 O2 Sat by Pulse 97 Oximetry O2 Sat by Pulse Oximetry [ Assessment] - Labs CBC & Chem 7: 10/10/20 03:42 10/10/20 03:42 Labs: Abnormal lab results 10/10/20 10/10/20 10/11/20 Range/Units 17:51 23:37 05:02 POC Glucose 170 H 225 H 190 H (70-105) mg/dL 10/11/20 Range/Units 11:45 POC Glucose 209 H (70-105) mg/dL HEART Score - HEART Score EKG: Normal Age: 45-65 Risk factors: No known risk factors Troponin: Troponin T < 0.010 ng/mL (0.00-0.029) 10/02/20 06:48 Troponin: < normal limit - Critical Actions Critical Actions: 0-3 pts:0.9-1.7%risk of adverse cardiac event.Candidate for discharge
[2020-10-11] MEDS: SENNOSIDES 8.6 MG TAB PO SCH (21:11)
[2020-10-12] MEDS: INSULIN LISPRO 100 UNIT/ML SUB-Q SCH ×4 (00:50→18:16)
[2020-10-12 06:12] LABS: Hemoglobin 9.4 gm/dl (10.1-14.3); Mean Corpuscular HGB Conc 31 % (30-34); Mean Corpuscular Volume 82 fl (79-97); Red Blood Count 3.65 M/mm3 (3.65-5.03)
[2020-10-12] MEDS: HEPARIN 5,000 UNIT/1 ML VIAL SUB-Q SCH ×3 (06:15→21:38)
[2020-10-12 06:29] LABS: Red Cell Distribution Width 23.9 % (13.2-15.2)
[2020-10-12 06:56] LABS: Blood Urea Nitrogen 20 mg/dL (7-17); Calcium 10.1 mg/dL (8.4-10.2); Hemolysis Index 71
[2020-10-12 06:57] LABS: BUN/Creatinine Ratio 33
[2020-10-12] MEDS: ASPIRIN 81 MG TAB CHEW PO SCH (09:14)
[2020-10-12] MEDS: MODAFINIL 100 MG TAB PO SCH (09:14)
[2020-10-12] MEDS: carvediloL 12.5 MG TAB PO SCH ×2 (09:14→21:37)
[2020-10-12] MEDS: levETIRAcetam 500 MG/5 ML ORAL LIQD PO SCH ×2 (09:14→21:39)
[2020-10-12] MEDS: FAMOTIDINE 20 MG TAB PO SCH ×2 (09:15→21:38)
[2020-10-12] MEDS: SCOPOLAMINE TRANSDERMAL PATCH 72 HR TD SCH (09:15)
[2020-10-12] MEDS: LOSARTAN 25 MG TAB PO SCH (09:21)
[2020-10-12 11:26] LABS: Total Cells Counted 100
[2020-10-12 11:27] LABS: Giant Platelets Few; Platelet Estimate Consistent w Auto
[2020-10-12 11:28] LABS: Platelet Count 467 K/mm3 (140-440)
--- NOTE | 2020-10-12 12:55 | XRay Report ---
CHEST 1 VIEW 10/12/2020 12:45 PM INDICATION / CLINICAL INFORMATION: fever. COMPARISON: Chest x-ray 10/09/2020 FINDINGS: SUPPORT DEVICES: Tracheostomy tube, unchanged HEART / MEDIASTINUM: No significant abnormality. LUNGS / PLEURA: No significant pulmonary or pleural abnormality. No pneumothorax. ADDITIONAL FINDINGS: No significant additional findings. IMPRESSION: 1. No acute findings. Signer Name: Matthew Cannon MD Signed: 10/12/2020 12:51 PM Workstation Name: [id number]
--- NOTE | 2020-10-12 16:41 | Progress Note ---
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 neuro etiology trend temp and WBC curve last cultures on 09/25 no antibiotics at this time --Morbid obesity avoid hypoglycemia currently on no SSI- continue to monitor for need with inc in TF rate Disposition Plan: LTC v home with family Total Time Spent with Patient (Minutes): 60 Brief history: 45-year-old female with obesity hypoventilation syndrome and GERD who presented to the emergency department on 09/25/20 s/p cardiac arrest via EMS. Per EMS staff they were notified for shortness of breath and upon arrival patient was found to be in distress and subsequently went into cardiac arrest and she was treated in accordance to ACLS protocol and intubated in the field and transported to [facility]. Evaluation in the emergency department upon arrival to the emergency department patient was found to have persistent hypoxic respiratory failure and was maintained on ventilator support. Work-up revealed sepsis, pneumonia, seizure disorder, metabolic acidosis as well as NSTEMI. Cardiology, neurology, CCM were consulted. Daily clinical course: 09/26/20: Patient was admitted with out of the hospital cardiac arrest status post CPR per ACLS protocols Anoxic brain injury, unresponsive Orally intubated on ventilatory support Vital signs reviewed. called patient's aunt , NOK Ms. Debora Minor at [phone] and discussed in detail, patient's condition, tests and reports, consultants recommendations, poor prognosis, treatment plan[explained in detail the medications and their role in the treatment] pending tests. 09/27/2020; patient remains unresponsive, intubated on ventilatory support Follow neurology evaluation and recommendations 10/01: Patient has persistent leukocytosis and hyperchloremia. Patient now has hypernatremia and renal function has improved to CR/BUN 1.1/15 from 1.08/04. Patient has hypophosphatemia which was repleted yesterday and we will obtain a.m. labs. Patient has MRI brain pending. Family updated by neurology over the phone and [employer] at bedside. Patient niece was at bedside today and she will defer goals of care decision after MRI results. EEG findings were explained. According to her the patient was in found to be unresponsive by family and was given bystander CPR before arrival of EMS. 10/02: Patient received MRI brain today which showed diffuse cerebral restricted diffusion consistent with global anoxic brain injury, no associated hemorrhage or herniation and additional small acute lacunar infarct in the right paracentral lesia. 10/03: Cardiology will follow the patient peripherally given poor prognosis, Dr. Alvarado and has spoken to the family regarding prognosis today. Given hypotension patient will receive lower doses of blood pressure medicine and per drug abuse social worker request a referral to [facility]. 10/04: Patient bilateral Doppler ultrasound are negative and heparin drip has been stopped. [facility] referral made by CM which was denied. Family is aware. No acute events reported overnight. Patient family was at bedside and updated by neurologist. Explained to them that pt. is not brain but is with significant brain injury, she is off sedation for a week with no clear changes in her clinical presentation. 10/05: Today patient is no longer hypernatremic so free water flushes were resume at the rate nutrition as ordered. Decrease in Cozaar today patient's T-max 100.7 which was responsive to Tylenol. At the time examination patient is on assist control tidal volume 450, rate of 12, PEEP of 6 and 25% FiO2. Patient will be tried on a CPAP trial today. 10/06/2020: No family at the bedside, spoke with critical care, patient was opening her eyes but continues to be encephalopathic. Patient on cefepime, will get pro-Kareem, if negative, DC antibiotics. Continues to be on CPAP and intubated. 10/07: No significant change clinically, patient remains on mechanical ventilation. discussed LT plan with Aunt and she is wanting a trach/peg and to take pt home with her; pt is a full code at this time. 10/08: General surgery consulted for trach and PEG placement. Patient remains on mechanical ventilation with diffuse anoxic brain injury status post cardiac arrest. Continue supportive care monitor clinically. Patient is full code very poor prognosis. 10/09/20; patient remains on ventilator with trach tube, started on tube feeding with PEG. Continue supportive care, vital stable. financial institution branch manager working on placement. 10/10/20: Patient mechanically ventilated with trach tube. Tolerating tube feeding. financial institution branch manager working on placement. Very poor prognosis need long-term placement. 10/11/20; patient remains mechanically ventilated via trach tube. Critical care working on to wean off from the vent. Very poor prognosis. Continue supportive care and pending placement. 10/12/20; patient intermittently spiking fever. Order for stat blood culture, UA and chest x-ray. Patient also has elevated white count, monitor off antibiotics for now till culture results available. Patient on CPAP with a trach tube. Discussed plan of care patient's aunt at bedside. I explained to family that patient still with guarded prognosis and poor chance for recovery from diffuse anoxic brain injury. Subjective Date of service: 10/12/20 Principal diagnosis: Cardiac arrest; Ac. respiratory failure; Anoxic encephalopathy; PNA; NSTEMI Interval history: Patient seen and examined. Medical records and medication list reviewed. No acute event overnight noted by the RN. Patient on ventilator with trach tube, started on tube feeding with newly placed PICC financial institution branch manager working on placement Spiking temperature Discussed with patient's aunt at bedside -updated with all clinical details Objective - Exam Narrative Exam: General appearance: Present: no acute distress, well-nourished, other (not responsive ) - EENT ENT: clear oral mucosa - Neck Neck: Present: supple, normal ROM, trach in place - Respiratory Respiratory effort: normal - Cardiovascular Rhythm: regular Heart Sounds: Present: S1 & S2 Peripheral Pulses: within normal limits - Abdominal General gastrointestinal: soft, non-tender, PEG in place - Integumentary Integumentary: Present: clear, warm, dry - Allied Health Allied health notes reviewed: nursing, case management - Constitutional Vitals: Vital Signs - 12hr 10/12/20 10/12/20 10/12/20 05:00 05:31 06:01 Temperature Pulse Rate 111 H 113 H 117 H Respiratory 14 16 16 Rate Blood Pressure 118/60 118/60 132/66 O2 Sat by Pulse 99 95 98 Oximetry O2 Sat by Pulse Oximetry [ Assessment] 10/12/20 10/12/20 10/12/20 06:31 07:00 07:31 Temperature Pulse Rate 117 H 121 H 120 H Respiratory 12 22 20 Rate Blood Pressure 132/66 123/85 123/85 O2 Sat by Pulse 99 99 96 Oximetry O2 Sat by Pulse Oximetry [ Assessment] 10/12/20 10/12/20 10/12/20 07:42 07:50 08:01 Temperature 100.4 F H Pulse Rate 119 H 119 H Respiratory 18 Rate Blood Pressure 134/59 134/59 O2 Sat by Pulse 97 91 Oximetry O2 Sat by Pulse Oximetry [ Assessment] 10/12/20 10/12/20 10/12/20 08:05 08:31 09:00 Temperature Pulse Rate 111 H 121 H 123 H Respiratory 24 19 24 Rate Blood Pressure 120/57 134/59 125/63 O2 Sat by Pulse 100 96 100 Oximetry O2 Sat by Pulse Oximetry [ Assessment] 10/12/20 10/12/20 10/12/20 09:14 09:21 09:31 Temperature Pulse Rate 121 H 120 H 122 H Respiratory 22 Rate Blood Pressure 125/63 125/63 125/63 O2 Sat by Pulse 100 Oximetry O2 Sat by Pulse Oximetry [ Assessment] 10/12/20 10/12/20 10/12/20 10:00 10:30 11:00 Temperature Pulse Rate 112 H 109 H 108 H Respiratory 18 23 21 Rate Blood Pressure 120/57 125/63 121/64 O2 Sat by Pulse 100 100 95 Oximetry O2 Sat by Pulse Oximetry [ Assessment] 10/12/20 10/12/20 10/12/20 11:19 11:30 12:00 Temperature 100 F H Pulse Rate 108 H 110 H 112 H Respiratory 27 H 22 25 H Rate Blood Pressure 120/57 121/64 122/68 O2 Sat by Pulse 98 95 95 Oximetry O2 Sat by Pulse 98 Oximetry [ Assessment] 10/12/20 10/12/20 10/12/20 12:30 13:00 13:30 Temperature Pulse Rate 112 H 112 H 112 H Respiratory 24 22 14 Rate Blood Pressure 121/64 128/61 128/61 O2 Sat by Pulse 96 96 99 Oximetry O2 Sat by Pulse Oximetry [ Assessment] 10/12/20 10/12/20 10/12/20 14:00 14:30 15:00 Temperature Pulse Rate 110 H 108 H 115 H Respiratory 18 23 16 Rate Blood Pressure 124/59 128/61 135/69 O2 Sat by Pulse 93 95 100 Oximetry O2 Sat by Pulse Oximetry [ Assessment] 10/12/20 10/12/20 10/12/20 15:30 15:36 16:00 Temperature 99.5 F Pulse Rate 112 H 114 H 111 H Respiratory 24 25 H 21 Rate Blood Pressure 135/69 135/69 118/63 O2 Sat by Pulse 100 100 Oximetry O2 Sat by Pulse 100 Oximetry [ Assessment] - Labs CBC & Chem 7: 10/12/20 05:18 10/12/20 05:18 Labs: Abnormal lab results 10/11/20 10/12/20 10/12/20 Range/Units 17:08 00:57 05:18 WBC 24.0 H (4.5-11.0) K/mm3 Hgb 9.4 L (10.1-14.3) gm/dl Hct 30.0 L (30.3-42.9) % MCH 26 L (28-32) pg RDW 23.9 H (13.2-15.2) % Plt Count 467 H (140-440) K/mm3 Monocytes % (Manual) 8.0 H (0.0-7.3) % Seg Neutrophils # Man 0.0 L (1.8-7.7) K/mm3 Lymphocytes # (Manual) 0.0 L (1.2-5.4) K/mm3 Potassium (3.6-5.0) mmol/L BUN (7-17) mg/dL Glucose (65-100) mg/dL POC Glucose 177 H 176 H (70-105) mg/dL 10/12/20 10/12/20 10/12/20 Range/Units 05:18 05:52 11:20 WBC (4.5-11.0) K/mm3 Hgb (10.1-14.3) gm/dl Hct (30.3-42.9) % MCH (28-32) pg RDW (13.2-15.2) % Plt Count (140-440) K/mm3 Monocytes % (Manual) (0.0-7.3) % Seg Neutrophils # Man (1.8-7.7) K/mm3 Lymphocytes # (Manual) (1.2-5.4) K/mm3 Potassium 5.1 H D (3.6-5.0) mmol/L BUN 20 H (7-17) mg/dL Glucose 183 H (65-100) mg/dL POC Glucose 167 H 179 H (70-105) mg/dL HEART Score - HEART Score EKG: Normal Age: 45-65 Risk factors: No known risk factors Troponin: Troponin T < 0.010 ng/mL (0.00-0.029) 10/02/20 06:48 Troponin: < normal limit - Critical Actions Critical Actions: 0-3 pts:0.9-1.7%risk of adverse cardiac event.Candidate for discharge
--- NOTE | 2020-10-12 18:40 | Progress Note ---
Assessment and Plan Cardiac arrest with return of spontaneous circulation. Acute respiratory failure, on mechanical ventilatory support. Acute toxic metabolic encephalopathy. Possible anoxic encephalopathy. Obesity. History of obesity hypoventilation syndrome. Leukocytosis. Likely aspiration pneumonia, bilateral. Anemia that is microcytic. Lactic acidosis. Elevated serum transaminases. Non-ST elevation myocardial infarction - continue Daily SAT and SBT assessment as tolerated - continue scopolamine patch for secretion control - LTAC evaluation ongoing - continue care as below otherwise; - continue to wean supplemental oxygen for target O2 sat's > 90% acutely - VAP bundle addressed - continue lung protective strategies - continue bronchodilators with pulmonary hygiene per RT - wean per pulmonary driven protocols otherwise - continue accuchecks with glycemic control per SSI (While critically ill target blood glucose of 140-180 mg/dL; avoid hypoglycemia) - sedation prn for target RASS 0 to -1 - avoid nephrotoxins, renally dose all medications - continue to avoid benzodiazepine's, reduce the possibility of delirium - completed AB's per ID rec's - prn analgesia per CPOT score - Maintenance of sleep-wake cycle, avoid delirium - continue enteral nutritional support at goal rate as tolerated - G.I. & VTE prophylaxis - PT/OT/ROM exercises - continue mobility protocols for pressure ulcer prophylaxis - Monitor hemodynamics closely - continue other care per attending / other consultants - discharge planning ongoing concurrently COVID SPECIFIC INTERVENTIONS - COVID tests result was negative .... Re-evaluate in am & prn CONDITION: CRITICAL PROGNOSIS: GUARDED CODE STATUS: FULL CODE The high probability of a clinically significant, sudden or life-threatening deterioration of the [respiratory, cardiovascular & neurologic] system(s) required my full and direct attention, intervention and personal management. The aggregate critical care time was [32] minutes without overlap. Time includes spe nt on; [x] Data Review and interpretation [x] Patient assessment and monitoring of vital signs [x] Documentation [x] Medication orders and management Subjective Date of service: 10/12/20 Principal diagnosis: Cardiac arrest; Ac. respiratory failure; Anoxic encephalopathy; PNA; NSTEMI Interval history: Patient is seen today for: Cardiac arrest with ROSC; Acute respiratory failure; Anoxic encephalopathy; Obesity; OHS; Aspiration pneumonia; NSTEMI Seen and examined at bedside; 24hour events reviewed; nursing and respiratory care staff consulted; no adverse overnight events reported to me; resting in bed; remains on MVS; weaning tenuously; no emesis or overt aspiration; afebrile; aunt visiting Objective Vital Signs - 12hr 10/12/20 10/12/20 10/12/20 07:00 07:31 07:42 Temperature 100.4 F H Pulse Rate 121 H 120 H Respiratory 22 20 Rate Blood Pressure 123/85 123/85 O2 Sat by Pulse 99 96 Oximetry O2 Sat by Pulse Oximetry [ Assessment] 10/12/20 10/12/20 10/12/20 07:50 08:01 08:05 Temperature Pulse Rate 119 H 119 H 111 H Respiratory 18 24 Rate Blood Pressure 134/59 134/59 120/57 O2 Sat by Pulse 97 91 100 Oximetry O2 Sat by Pulse Oximetry [ Assessment] 10/12/20 10/12/20 10/12/20 08:31 09:00 09:14 Temperature Pulse Rate 121 H 123 H 121 H Respiratory 19 24 Rate Blood Pressure 134/59 125/63 125/63 O2 Sat by Pulse 96 100 Oximetry O2 Sat by Pulse Oximetry [ Assessment] 10/12/20 10/12/20 10/12/20 09:21 09:31 10:00 Temperature Pulse Rate 120 H 122 H 112 H Respiratory 22 18 Rate Blood Pressure 125/63 125/63 120/57 O2 Sat by Pulse 100 100 Oximetry O2 Sat by Pulse Oximetry [ Assessment] 10/12/20 10/12/20 10/12/20 10:30 11:00 11:19 Temperature Pulse Rate 109 H 108 H 108 H Respiratory 23 21 27 H Rate Blood Pressure 125/63 121/64 120/57 O2 Sat by Pulse 100 95 98 Oximetry O2 Sat by Pulse 98 Oximetry [ Assessment] 10/12/20 10/12/20 10/12/20 11:30 12:00 12:30 Temperature 100 F H Pulse Rate 110 H 112 H 112 H Respiratory 22 25 H 24 Rate Blood Pressure 121/64 122/68 121/64 O2 Sat by Pulse 95 95 96 Oximetry O2 Sat by Pulse Oximetry [ Assessment] 10/12/20 10/12/20 10/12/20 13:00 13:30 14:00 Temperature Pulse Rate 112 H 112 H 110 H Respiratory 22 14 18 Rate Blood Pressure 128/61 128/61 124/59 O2 Sat by Pulse 96 99 93 Oximetry O2 Sat by Pulse Oximetry [ Assessment] 10/12/20 10/12/20 10/12/20 14:30 15:00 15:30 Temperature Pulse Rate 108 H 115 H 112 H Respiratory 23 16 24 Rate Blood Pressure 128/61 135/69 135/69 O2 Sat by Pulse 95 100 100 Oximetry O2 Sat by Pulse Oximetry [ Assessment] 10/12/20 10/12/20 15:36 16:00 Temperature 99.5 F Pulse Rate 114 H 111 H Respiratory 25 H 21 Rate Blood Pressure 135/69 118/63 O2 Sat by Pulse 100 Oximetry O2 Sat by Pulse 100 Oximetry [ Assessment] Constitutional: no acute distress, other (middle aged obese female with mildly increased respiratory effort at rest on MVS) Eyes: non-icteric ENT: oropharynx moist, other (+ midline tracheostomy) Neck: supple, no lymphadenopathy, no JVD Effort: mildly labored Ascultation: Bilateral: rhonchi Percussion: Bilateral: not dull Cardiovascular: regular rate and rhythm, other (S1,S2) Gastrointestinal: normoactive bowel sounds, soft, non-tender, non-distended Integumentary: normal Extremities: no cyanosis, no edema, pulses normal, no ischemia or petechiae Neurologic: pupils equal and round, unable to assess Psychiatric: other (unable to assess re: AMS) CBC and BMP: 10/13/20 11:09 10/13/20 11:09 ABG, PT/INR, D-dimer: ABG ABG pH 7.424 (7.320-7.450) 10/01/20 04:12 POC ABG pCO2 41.6 mmHg (32.0-48.0) 10/01/20 04:12 POC ABG pO2 73.0 mmHg (83-108) L 10/01/20 04:12 POC ABG HCO3 26.6 10/01/20 04:12 ABG O2 Saturation 94.3 (0-100) 10/01/20 04:12 PT/INR, D-dimer PT 13.7 Sec. (12.2-14.9) 09/25/20 18:15 INR 1.00 (0.87-1.13) 09/25/20 18:15 Abnormal lab findings: Abnormal Labs 09/25/20 09/25/20 09/25/20 17:19 17:21 18:15 WBC 13.8 H RBC Hgb 9.9 L Hct MCV 76 L MCH 23 L RDW 17.9 H Plt Count Lymph % (Auto) [place] % (Auto) Lymph # (Auto) [place] # (Auto) Seg Neutrophils % 78.6 H Seg Neuts % (Manual) Monocytes % (Manual) Eosinophils % (Manual) Seg Neutrophils # 10.8 H Seg Neutrophils # Man Lymphocytes # (Manual) Monocytes # (Manual) Eosinophils # (Manual) APTT Heparin Anti-Xa Level ABG pH POC ABG pCO2 26.2 L POC ABG pO2 554.5 H ABG Hemoglobin 9.0 L ABG Oxyhemoglobin 99.0 H ABG Sodium 134.5 L ABG Potassium ABG Chloride ABG Glucose 220 H Carboxyhemoglobin Sodium Potassium Chloride BUN Creatinine Glucose POC Glucose Lactic Acid Calcium Phosphorus AST ALT Troponin T C-Reactive Protein Albumin HDL Cholesterol Arterial Blood Glucose 220 H Arterial Blood Ionized Calcium 4.2 L Urine WBC (Auto) 14.0 H 09/25/20 09/25/20 09/25/20 18:15 18:15 18:15 WBC RBC Hgb Hct MCV MCH RDW Plt Count Lymph % (Auto) [place] % (Auto) Lymph # (Auto) [place] # (Auto) Seg Neutrophils % Seg Neuts % (Manual) Monocytes % (Manual) Eosinophils % (Manual) Seg Neutrophils # Seg Neutrophils # Man Lymphocytes # (Manual) Monocytes # (Manual) Eosinophils # (Manual) APTT 21.1 L Heparin Anti-Xa Level ABG pH POC ABG pCO2 POC ABG pO2 ABG Hemoglobin ABG Oxyhemoglobin ABG Sodium ABG Potassium ABG Chloride ABG Glucose Carboxyhemoglobin Sodium Potassium Chloride BUN Creatinine Glucose 113 H POC Glucose Lactic Acid 2.60 H* Calcium Phosphorus AST 162 H ALT 131 H Troponin T 0.096 H C-Reactive Protein Albumin HDL Cholesterol Arterial Blood Glucose Arterial Blood Ionized Calcium Urine WBC (Auto) 09/25/20 09/25/20 09/26/20 23:13 23:13 03:15 WBC RBC Hgb Hct MCV MCH RDW Plt Count Lymph % (Auto) [place] % (Auto) Lymph # (Auto) [place] # (Auto) Seg Neutrophils % Seg Neuts % (Manual) Monocytes % (Manual) Eosinophils % (Manual) Seg Neutrophils # Seg Neutrophils # Man Lymphocytes # (Manual) Monocytes # (Manual) Eosinophils # (Manual) APTT Heparin Anti-Xa Level ABG pH 7.451 H POC ABG pCO2 27.1 L POC ABG pO2 ABG Hemoglobin 10.4 L ABG Oxyhemoglobin ABG Sodium 135.2 L ABG Potassium ABG Chloride 108.0 H ABG Glucose 137 H Carboxyhemoglobin Sodium Potassium Chloride BUN Creatinine Glucose POC Glucose Lactic Acid 2.90 H* Calcium Phosphorus AST ALT Troponin T 0.170 H* D C-Reactive Protein Albumin HDL Cholesterol 60 H Arterial Blood Glucose 137 H Arterial Blood Ionized Calcium 4.2 L Urine WBC (Auto) 09/26/20 09/26/20 09/26/20 05:09 05:09 05:09 WBC 15.8 H RBC Hgb 10.0 L Hct MCV 77 L MCH 24 L RDW 17.8 H Plt Count Lymph % (Auto) 7.2 L [place]le % (Auto) Lymph # (Auto) 1.1 L [place] # (Auto) 1.0 H Seg Neutrophils % 86.1 H Seg Neuts % (Manual) Monocytes % (Manual) Eosinophils % (Manual) Seg Neutrophils # 13.6 H Seg Neutrophils # Man Lymphocytes # (Manual) Monocytes # (Manual) Eosinophils # (Manual) APTT Heparin Anti-Xa Level ABG pH POC ABG pCO2 POC ABG pO2 ABG Hemoglobin ABG Oxyhemoglobin ABG Sodium ABG Potassium ABG Chloride ABG Glucose Carboxyhemoglobin Sodium Potassium Chloride BUN Creatinine Glucose 114 H POC Glucose Lactic Acid 2.40 H* Calcium 8.1 L Phosphorus AST 112 H ALT 103 H Troponin T C-Reactive Protein Albumin 3.8 L HDL Cholesterol Arterial Blood Glucose Arterial Blood Ionized Calcium Urine WBC (Auto) 09/26/20 09/27/20 09/27/20 15:45 03:33 04:41 WBC RBC Hgb 9.0 L Hct 28.6 L MCV MCH RDW Plt Count Lymph % (Auto) [place] % (Auto) Lymph # (Auto) [place] # (Auto) Seg Neutrophils % Seg Neuts % (Manual) Monocytes % (Manual) Eosinophils % (Manual) Seg Neutrophils # Seg Neutrophils # Man Lymphocytes # (Manual) Monocytes # (Manual) Eosinophils # (Manual) APTT Heparin Anti-Xa Level ABG pH POC ABG pCO2 POC ABG pO2 141.6 H ABG Hemoglobin 9.3 L ABG Oxyhemoglobin ABG Sodium ABG Potassium 3.2 L ABG Chloride 108.0 H ABG Glucose 118 H Carboxyhemoglobin Sodium Potassium Chloride BUN Creatinine Glucose POC Glucose Lactic Acid Calcium Phosphorus 2.20 L AST ALT Troponin T C-Reactive Protein 4.30 H Albumin HDL Cholesterol Arterial Blood Glucose 118 H Arterial Blood Ionized Calcium 4.2 L Urine WBC (Auto) 09/27/20 09/27/20 09/28/20 04:41 22:53 04:00 WBC RBC Hgb Hct MCV MCH RDW Plt Count Lymph % (Auto) [place] % (Auto) Lymph # (Auto) [place] # (Auto) Seg Neutrophils % Seg Neuts % (Manual) Monocytes % (Manual) Eosinophils % (Manual) Seg Neutrophils # Seg Neutrophils # Man Lymphocytes # (Manual) Monocytes # (Manual) Eosinophils # (Manual) APTT Heparin Anti-Xa Level 0.75 H ABG pH 7.467 H POC ABG pCO2 POC ABG pO2 78.9 L ABG Hemoglobin 9.8 L ABG Oxyhemoglobin ABG Sodium ABG Potassium ABG Chloride ABG Glucose 141 H Carboxyhemoglobin Sodium Potassium Chloride BUN Creatinine Glucose POC Glucose 109 H Lactic Acid Calcium Phosphorus AST ALT Troponin T C-Reactive Protein Albumin HDL Cholesterol Arterial Blood Glucose 141 H Arterial Blood Ionized Calcium Urine WBC (Auto) 09/28/20 09/28/20 09/28/20 05:02 05:02 17:42 WBC 11.9 H RBC Hgb 9.3 L Hct 29.5 L MCV 76 L MCH 24 L RDW 19.4 H Plt Count Lymph % (Auto) [place] % (Auto) 11.1 H Lymph # (Auto) [place] # (Auto) 1.3 H Seg Neutrophils % 72.5 H Seg Neuts % (Manual) Monocytes % (Manual) Eosinophils % (Manual) Seg Neutrophils # 8.6 H Seg Neutrophils # Man Lymphocytes # (Manual) Monocytes # (Manual) Eosinophils # (Manual) APTT Heparin Anti-Xa Level ABG pH POC ABG pCO2 POC ABG pO2 ABG Hemoglobin ABG Oxyhemoglobin ABG Sodium ABG Potassium ABG Chloride ABG Glucose Carboxyhemoglobin Sodium Potassium 3.4 L Chloride BUN Creatinine Glucose 126 H POC Glucose 69 L Lactic Acid Calcium Phosphorus AST 129 H ALT 60 H Troponin T C-Reactive Protein Albumin 3.7 L HDL Cholesterol Arterial Blood Glucose Arterial Blood Ionized Calcium Urine WBC (Auto) 09/29/20 09/29/20 09/29/20 04:00 05:53 08:39 WBC RBC Hgb 10.0 L Hct MCV MCH RDW Plt Count Lymph % (Auto) [place] % (Auto) Lymph # (Auto) [place] # (Auto) Seg Neutrophils % Seg Neuts % (Manual) Monocytes % (Manual) Eosinophils % (Manual) Seg Neutrophils # Seg Neutrophils # Man Lymphocytes # (Manual) Monocytes # (Manual) Eosinophils # (Manual) APTT Heparin Anti-Xa Level ABG pH POC ABG pCO2 POC ABG pO2 81.1 L ABG Hemoglobin 11.0 L ABG Oxyhemoglobin ABG Sodium ABG Potassium ABG Chloride 110.0 H ABG Glucose 129 H Carboxyhemoglobin Sodium Potassium Chloride BUN Creatinine Glucose POC Glucose 58 L Lactic Acid Calcium Phosphorus AST ALT Troponin T C-Reactive Protein Albumin HDL Cholesterol Arterial Blood Glucose 129 H Arterial Blood Ionized Calcium Urine WBC (Auto) 09/30/20 09/30/20 09/30/20 00:10 10:45 15:05 WBC 12.5 H RBC Hgb 9.9 L Hct MCV 78 L MCH 24 L RDW 21.0 H Plt Count Lymph % (Auto) [place] % (Auto) 13.5 H Lymph # (Auto) [place] # (Auto) 1.7 H Seg Neutrophils % Seg Neuts % (Manual) Monocytes % (Manual) Eosinophils % (Manual) Seg Neutrophils # 8.1 H Seg Neutrophils # Man Lymphocytes # (Manual) Monocytes # (Manual) Eosinophils # (Manual) APTT Heparin Anti-Xa Level ABG pH 7.469 H POC ABG pCO2 POC ABG pO2 ABG Hemoglobin 10.4 L ABG Oxyhemoglobin ABG Sodium 146.2 H ABG Potassium ABG Chloride 109.0 H ABG Glucose 155 H Carboxyhemoglobin Sodium Potassium Chloride BUN Creatinine Glucose POC Glucose 131 H Lactic Acid Calcium Phosphorus AST ALT Troponin T C-Reactive Protein Albumin HDL Cholesterol Arterial Blood Glucose 155 H Arterial Blood Ionized Calcium Urine WBC (Auto) 09/30/20 09/30/20 10/01/20 15:05 17:37 00:29 WBC RBC Hgb Hct MCV MCH RDW Plt Count Lymph % (Auto) [place] % (Auto) Lymph # (Auto) [place] # (Auto) Seg Neutrophils % Seg Neuts % (Manual) Monocytes % (Manual) Eosinophils % (Manual) Seg Neutrophils # Seg Neutrophils # Man Lymphocytes # (Manual) Monocytes # (Manual) Eosinophils # (Manual) APTT Heparin Anti-Xa Level ABG pH POC ABG pCO2 POC ABG pO2 ABG Hemoglobin ABG Oxyhemoglobin ABG Sodium ABG Potassium ABG Chloride ABG Glucose Carboxyhemoglobin Sodium Potassium Chloride 109.1 H BUN 18 H Creatinine 1.4 H Glucose 122 H POC Glucose 127 H 119 H Lactic Acid Calcium Phosphorus 2.00 L AST ALT Troponin T C-Reactive Protein Albumin HDL Cholesterol Arterial Blood Glucose Arterial Blood Ionized Calcium Urine WBC (Auto) 10/01/20 10/01/20 10/01/20 04:12 05:56 05:56 WBC 14.2 H RBC Hgb 9.7 L Hct MCV 78 L MCH 23 L RDW 21.1 H Plt Count Lymph % (Auto) [place] % (Auto) Lymph # (Auto) [place] # (Auto) Seg Neutrophils % Seg Neuts % (Manual) Monocytes % (Manual) Eosinophils % (Manual) Seg Neutrophils # Seg Neutrophils # Man Lymphocytes # (Manual) Monocytes # (Manual) Eosinophils # (Manual) APTT Heparin Anti-Xa Level ABG pH POC ABG pCO2 POC ABG pO2 73.0 L ABG Hemoglobin 10.0 L ABG Oxyhemoglobin 93.7 L ABG Sodium 146.4 H ABG Potassium ABG Chloride 110.0 H ABG Glucose 124 H Carboxyhemoglobin 0.3 L Sodium 147 H Potassium Chloride 109.6 H BUN Creatinine Glucose 109 H POC Glucose Lactic Acid Calcium Phosphorus AST ALT Troponin T C-Reactive Protein Albumin HDL Cholesterol Arterial Blood Glucose 124 H Arterial Blood Ionized Calcium Urine WBC (Auto) 10/01/20 10/01/20 10/02/20 19:21 23:17 05:27 WBC RBC Hgb Hct MCV MCH RDW Plt Count Lymph % (Auto) [place] % (Auto) Lymph # (Auto) [place] # (Auto) Seg Neutrophils % Seg Neuts % (Manual) Monocytes % (Manual) Eosinophils % (Manual) Seg Neutrophils # Seg Neutrophils # Man Lymphocytes # (Manual) Monocytes # (Manual) Eosinophils # (Manual) APTT Heparin Anti-Xa Level ABG pH POC ABG pCO2 POC ABG pO2 ABG Hemoglobin ABG Oxyhemoglobin ABG Sodium ABG Potassium ABG Chloride ABG Glucose Carboxyhemoglobin Sodium Potassium Chloride BUN Creatinine Glucose POC Glucose 126 H 160 H 121 H Lactic Acid Calcium Phosphorus AST ALT Troponin T C-Reactive Protein Albumin HDL Cholesterol Arterial Blood Glucose Arterial Blood Ionized Calcium Urine WBC (Auto) 10/02/20 10/02/20 10/02/20 06:48 06:48 11:51 WBC 14.2 H RBC Hgb 9.6 L Hct MCV MCH 25 L RDW 21.7 H Plt Count Lymph % (Auto) [place] % (Auto) Lymph # (Auto) [place] # (Auto) Seg Neutrophils % Seg Neuts % (Manual) Monocytes % (Manual) Eosinophils % (Manual) Seg Neutrophils # Seg Neutrophils # Man Lymphocytes # (Manual) Monocytes # (Manual) Eosinophils # (Manual) APTT Heparin Anti-Xa Level ABG pH POC ABG pCO2 POC ABG pO2 ABG Hemoglobin ABG Oxyhemoglobin ABG Sodium ABG Potassium ABG Chloride ABG Glucose Carboxyhemoglobin Sodium 147 H Potassium Chloride 110.4 H BUN Creatinine Glucose 134 H POC Glucose 121 H Lactic Acid Calcium Phosphorus 2.20 L AST ALT Troponin T C-Reactive Protein Albumin HDL Cholesterol Arterial Blood Glucose Arterial Blood Ionized Calcium Urine WBC (Auto) 10/02/20 10/03/20 10/03/20 17:19 00:35 07:24 WBC 12.9 H RBC Hgb 8.9 L Hct 29.6 L MCV MCH 24 L RDW 21.9 H Plt Count Lymph % (Auto) [place] % (Auto) Lymph # (Auto) [place] # (Auto) Seg Neutrophils % Seg Neuts % (Manual) Monocytes % (Manual) Eosinophils % (Manual) Seg Neutrophils # Seg Neutrophils # Man Lymphocytes # (Manual) Monocytes # (Manual) Eosinophils # (Manual) APTT Heparin Anti-Xa Level ABG pH POC ABG pCO2 POC ABG pO2 ABG Hemoglobin ABG Oxyhemoglobin ABG Sodium ABG Potassium ABG Chloride ABG Glucose Carboxyhemoglobin Sodium Potassium Chloride BUN Creatinine Glucose POC Glucose 107 H 112 H Lactic Acid Calcium Phosphorus AST ALT Troponin T C-Reactive Protein Albumin HDL Cholesterol Arterial Blood Glucose Arterial Blood Ionized Calcium Urine WBC (Auto) 10/03/20 10/03/20 10/03/20 07:24 17:27 20:19 WBC RBC Hgb Hct MCV MCH RDW Plt Count Lymph % (Auto) [place] % (Auto) Lymph # (Auto) [place] # (Auto) Seg Neutrophils % Seg Neuts % (Manual) Monocytes % (Manual) Eosinophils % (Manual) Seg Neutrophils # Seg Neutrophils # Man Lymphocytes # (Manual) Monocytes # (Manual) Eosinophils # (Manual) APTT Heparin Anti-Xa Level 0.18 L ABG pH POC ABG pCO2 POC ABG pO2 ABG Hemoglobin ABG Oxyhemoglobin ABG Sodium ABG Potassium ABG Chloride ABG Glucose Carboxyhemoglobin Sodium 147 H Potassium Chloride 110.4 H BUN Creatinine Glucose 128 H POC Glucose 136 H Lactic Acid Calcium Phosphorus AST ALT Troponin T C-Reactive Protein Albumin HDL Cholesterol Arterial Blood Glucose Arterial Blood Ionized Calcium Urine WBC (Auto) 10/03/20 10/04/20 10/04/20 23:34 04:07 06:12 WBC RBC Hgb Hct MCV MCH RDW Plt Count Lymph % (Auto) [place] % (Auto) Lymph # (Auto) [place] # (Auto) Seg Neutrophils % Seg Neuts % (Manual) Monocytes % (Manual) Eosinophils % (Manual) Seg Neutrophils # Seg Neutrophils # Man Lymphocytes # (Manual) Monocytes # (Manual) Eosinophils # (Manual) APTT Heparin Anti-Xa Level 0.25 L ABG pH POC ABG pCO2 POC ABG pO2 ABG Hemoglobin ABG Oxyhemoglobin ABG Sodium ABG Potassium ABG Chloride ABG Glucose Carboxyhemoglobin Sodium Potassium Chloride BUN Creatinine Glucose POC Glucose 119 H 128 H Lactic Acid Calcium Phosphorus AST ALT Troponin T C-Reactive Protein Albumin HDL Cholesterol Arterial Blood Glucose Arterial Blood Ionized Calcium Urine WBC (Auto) 10/04/20 10/04/20 10/05/20 11:38 17:39 00:17 WBC RBC Hgb Hct MCV MCH RDW Plt Count Lymph % (Auto) [place] % (Auto) Lymph # (Auto) [place] # (Auto) Seg Neutrophils % Seg Neuts % (Manual) Monocytes % (Manual) Eosinophils % (Manual) Seg Neutrophils # Seg Neutrophils # Man Lymphocytes # (Manual) Monocytes # (Manual) Eosinophils # (Manual) APTT Heparin Anti-Xa Level ABG pH POC ABG pCO2 POC ABG pO2 ABG Hemoglobin ABG Oxyhemoglobin ABG Sodium ABG Potassium ABG Chloride ABG Glucose Carboxyhemoglobin Sodium Potassium Chloride BUN Creatinine Glucose POC Glucose 129 H 136 H 125 H Lactic Acid Calcium Phosphorus AST ALT Troponin T C-Reactive Protein Albumin HDL Cholesterol Arterial Blood Glucose Arterial Blood Ionized Calcium Urine WBC (Auto) 10/05/20 10/05/20 10/05/20 04:17 04:17 05:31 WBC 13.0 H RBC Hgb 9.1 L Hct 29.5 L MCV MCH 25 L RDW 22.2 H Plt Count Lymph % (Auto) [place] % (Auto) Lymph # (Auto) [place] # (Auto) Seg Neutrophils % Seg Neuts % (Manual) Monocytes % (Manual) Eosinophils % (Manual) Seg Neutrophils # Seg Neutrophils # Man Lymphocytes # (Manual) Monocytes # (Manual) Eosinophils # (Manual) APTT Heparin Anti-Xa Level ABG pH POC ABG pCO2 POC ABG pO2 ABG Hemoglobin ABG Oxyhemoglobin ABG Sodium ABG Potassium ABG Chloride ABG Glucose Carboxyhemoglobin Sodium Potassium Chloride BUN Creatinine Glucose 148 H POC Glucose 160 H Lactic Acid Calcium Phosphorus AST ALT Troponin T C-Reactive Protein Albumin HDL Cholesterol Arterial Blood Glucose Arterial Blood Ionized Calcium Urine WBC (Auto) 10/05/20 10/05/20 10/05/20 12:09 17:33 23:30 WBC RBC Hgb Hct MCV MCH RDW Plt Count Lymph % (Auto) [place] % (Auto) Lymph # (Auto) [place] # (Auto) Seg Neutrophils % Seg Neuts % (Manual) Monocytes % (Manual) Eosinophils % (Manual) Seg Neutrophils # Seg Neutrophils # Man Lymphocytes # (Manual) Monocytes # (Manual) Eosinophils # (Manual) APTT Heparin Anti-Xa Level ABG pH POC ABG pCO2 POC ABG pO2 ABG Hemoglobin ABG Oxyhemoglobin ABG Sodium ABG Potassium ABG Chloride ABG Glucose Carboxyhemoglobin Sodium Potassium Chloride BUN Creatinine Glucose POC Glucose 148 H 135 H 142 H Lactic Acid Calcium Phosphorus AST ALT Troponin T C-Reactive Protein Albumin HDL Cholesterol Arterial Blood Glucose Arterial Blood Ionized Calcium Urine WBC (Auto) 10/06/20 10/06/20 10/06/20 04:37 05:35 10:55 WBC RBC Hgb Hct MCV MCH RDW Plt Count Lymph % (Auto) [place] % (Auto) Lymph # (Auto) [place] # (Auto) Seg Neutrophils % Seg Neuts % (Manual) Monocytes % (Manual) Eosinophils % (Manual) Seg Neutrophils # Seg Neutrophils # Man Lymphocytes # (Manual) Monocytes # (Manual) Eosinophils # (Manual) APTT Heparin Anti-Xa Level ABG pH POC ABG pCO2 POC ABG pO2 ABG Hemoglobin ABG Oxyhemoglobin ABG Sodium ABG Potassium ABG Chloride ABG Glucose Carboxyhemoglobin Sodium 136 L Potassium Chloride BUN Creatinine Glucose 184 H POC Glucose 151 H 163 H Lactic Acid Calcium Phosphorus AST 66 H ALT Troponin T C-Reactive Protein Albumin 3.3 L HDL Cholesterol Arterial Blood Glucose Arterial Blood Ionized Calcium Urine WBC (Auto) 10/06/20 10/06/20 10/07/20 16:41 23:31 05:24 WBC RBC Hgb Hct MCV MCH RDW Plt Count Lymph % (Auto) [place] % (Auto) Lymph # (Auto) [place] # (Auto) Seg Neutrophils % Seg Neuts % (Manual) Monocytes % (Manual) Eosinophils % (Manual) Seg Neutrophils # Seg Neutrophils # Man Lymphocytes # (Manual) Monocytes # (Manual) Eosinophils # (Manual) APTT Heparin Anti-Xa Level ABG pH POC ABG pCO2 POC ABG pO2 ABG Hemoglobin ABG Oxyhemoglobin ABG Sodium ABG Potassium ABG Chloride ABG Glucose Carboxyhemoglobin Sodium Potassium Chloride BUN Creatinine Glucose POC Glucose 156 H 190 H 194 H Lactic Acid Calcium Phosphorus AST ALT Troponin T C-Reactive Protein Albumin HDL Cholesterol Arterial Blood Glucose Arterial Blood Ionized Calcium Urine WBC (Auto) 10/07/20 10/07/20 10/07/20 11:48 17:50 18:12 WBC 15.7 H RBC Hgb 9.2 L Hct 30.1 L MCV MCH 25 L RDW 24.1 H Plt Count 514 H Lymph % (Auto) [place] % (Auto) Lymph # (Auto) [place] # (Auto) Seg Neutrophils % Seg Neuts % (Manual) 71.0 H Monocytes % (Manual) Eosinophils % (Manual) 5.0 H Seg Neutrophils # Seg Neutrophils # Man 11.1 H Lymphocytes # (Manual) Monocytes # (Manual) 1.1 H Eosinophils # (Manual) 0.8 H APTT Heparin Anti-Xa Level ABG pH POC ABG pCO2 POC ABG pO2 ABG Hemoglobin ABG Oxyhemoglobin ABG Sodium ABG Potassium ABG Chloride ABG Glucose Carboxyhemoglobin Sodium Potassium Chloride BUN Creatinine Glucose POC Glucose 203 H 191 H Lactic Acid Calcium Phosphorus AST ALT Troponin T C-Reactive Protein Albumin HDL Cholesterol Arterial Blood Glucose Arterial Blood Ionized Calcium Urine WBC (Auto) 10/07/20 10/08/20 10/08/20 23:40 04:22 04:22 WBC 15.2 H RBC Hgb 9.6 L Hct MCV MCH 24 L RDW 23.3 H Plt Count 517 H Lymph % (Auto) [place] % (Auto) Lymph # (Auto) [place] # (Auto) Seg Neutrophils % Seg Neuts % (Manual) Monocytes % (Manual) Eosinophils % (Manual) Seg Neutrophils # Seg Neutrophils # Man Lymphocytes # (Manual) Monocytes # (Manual) Eosinophils # (Manual) APTT Heparin Anti-Xa Level ABG pH POC ABG pCO2 POC ABG pO2 ABG Hemoglobin ABG Oxyhemoglobin ABG Sodium ABG Potassium ABG Chloride ABG Glucose Carboxyhemoglobin Sodium Potassium Chloride BUN 18 H Creatinine Glucose 150 H POC Glucose 191 H Lactic Acid Calcium 10.3 H Phosphorus AST 63 H ALT Troponin T C-Reactive Protein Albumin HDL Cholesterol Arterial Blood Glucose Arterial Blood Ionized Calcium Urine WBC (Auto) 10/08/20 10/08/20 10/08/20 05:41 11:53 16:17 WBC RBC Hgb Hct MCV MCH RDW Plt Count Lymph % (Auto) [place] % (Auto) Lymph # (Auto) [place] # (Auto) Seg Neutrophils % Seg Neuts % (Manual) Monocytes % (Manual) Eosinophils % (Manual) Seg Neutrophils # Seg Neutrophils # Man Lymphocytes # (Manual) Monocytes # (Manual) Eosinophils # (Manual) APTT Heparin Anti-Xa Level ABG pH POC ABG pCO2 POC ABG pO2 ABG Hemoglobin ABG Oxyhemoglobin ABG Sodium ABG Potassium ABG Chloride ABG Glucose Carboxyhemoglobin Sodium Potassium Chloride BUN Creatinine Glucose POC Glucose 125 H 116 H 141 H Lactic Acid Calcium Phosphorus AST ALT Troponin T C-Reactive Protein Albumin HDL Cholesterol Arterial Blood Glucose Arterial Blood Ionized Calcium Urine WBC (Auto) 10/08/20 10/09/20 10/09/20 23:24 04:07 04:07 WBC 14.2 H RBC Hgb 9.6 L Hct MCV MCH 24 L RDW 23.5 H Plt Count 543 H Lymph % (Auto) Boyle % (Auto) 10.4 H Lymph # (Auto) Boyle # (Auto) 1.5 H Seg Neutrophils % 70.9 H Seg Neuts % (Manual) Monocytes % (Manual) Eosinophils % (Manual) Seg Neutrophils # 10.1 H Seg Neutrophils # Man Lymphocytes # (Manual) Monocytes # (Manual) Eosinophils # (Manual) APTT Heparin Anti-Xa Level ABG pH POC ABG pCO2 POC ABG pO2 ABG Hemoglobin ABG Oxyhemoglobin ABG Sodium ABG Potassium ABG Chloride ABG Glucose Carboxyhemoglobin Sodium Potassium Chloride BUN 18 H Creatinine Glucose 152 H POC Glucose 114 H Lactic Acid Calcium Phosphorus AST ALT Troponin T C-Reactive Protein Albumin HDL Cholesterol Arterial Blood Glucose Arterial Blood Ionized Calcium Urine WBC (Auto) 10/09/20 10/09/20 10/10/20 11:51 17:35 00:15 WBC RBC Hgb Hct MCV MCH RDW Plt Count Lymph % (Auto) Boyle % (Auto) Lymph # (Auto) Boyle # (Auto) Seg Neutrophils % Seg Neuts % (Manual) Monocytes % (Manual) Eosinophils % (Manual) Seg Neutrophils # Seg Neutrophils # Man Lymphocytes # (Manual) Monocytes # (Manual) Eosinophils # (Manual) APTT Heparin Anti-Xa Level ABG pH POC ABG pCO2 POC ABG pO2 ABG Hemoglobin ABG Oxyhemoglobin ABG Sodium ABG Potassium ABG Chloride ABG Glucose Carboxyhemoglobin Sodium Potassium Chloride BUN Creatinine Glucose POC Glucose 134 H 139 H 184 H Lactic Acid Calcium Phosphorus AST ALT Troponin T C-Reactive Protein Albumin HDL Cholesterol Arterial Blood Glucose Arterial Blood Ionized Calcium Urine WBC (Auto) 10/10/20 10/10/20 10/10/20 03:42 03:42 05:45 WBC 14.5 H RBC 3.62 L Hgb 9.1 L Hct 29.2 L MCV MCH 25 L RDW 24.2 H Plt Count 540 H Lymph % (Auto) Boyle % (Auto) 13.6 H Lymph # (Auto) Boyle # (Auto) 2.0 H Seg Neutrophils % Seg Neuts % (Manual) Monocytes % (Manual) Eosinophils % (Manual) Seg Neutrophils # 9.3 H Seg Neutrophils # Man Lymphocytes # (Manual) Monocytes # (Manual) Eosinophils # (Manual) APTT Heparin Anti-Xa Level ABG pH POC ABG pCO2 POC ABG pO2 ABG Hemoglobin ABG Oxyhemoglobin ABG Sodium ABG Potassium ABG Chloride ABG Glucose Carboxyhemoglobin Sodium 132 L Potassium Chloride 97.4 L BUN 23 H Creatinine Glucose 190 H POC Glucose 213 H Lactic Acid Calcium Phosphorus AST ALT Troponin T C-Reactive Protein Albumin HDL Cholesterol Arterial Blood Glucose Arterial Blood Ionized Calcium Urine WBC (Auto) 10/10/20 10/10/20 10/10/20 12:05 17:51 23:37 WBC RBC Hgb Hct MCV MCH RDW Plt Count Lymph % (Auto) Boyle % (Auto) Lymph # (Auto) Boyle # (Auto) Seg Neutrophils % Seg Neuts % (Manual) Monocytes % (Manual) Eosinophils % (Manual) Seg Neutrophils # Seg Neutrophils # Man Lymphocytes # (Manual) Monocytes # (Manual) Eosinophils # (Manual) APTT Heparin Anti-Xa Level ABG pH POC ABG pCO2 POC ABG pO2 ABG Hemoglobin ABG Oxyhemoglobin ABG Sodium ABG Potassium ABG Chloride ABG Glucose Carboxyhemoglobin Sodium Potassium Chloride BUN Creatinine Glucose POC Glucose 199 H 170 H 225 H Lactic Acid Calcium Phosphorus AST ALT Troponin T C-Reactive Protein Albumin HDL Cholesterol Arterial Blood Glucose Arterial Blood Ionized Calcium Urine WBC (Auto) 10/11/20 10/11/20 10/11/20 05:02 11:45 17:08 WBC RBC Hgb Hct MCV MCH RDW Plt Count Lymph % (Auto) Boyle % (Auto) Lymph # (Auto) Boyle # (Auto) Seg Neutrophils % Seg Neuts % (Manual) Monocytes % (Manual) Eosinophils % (Manual) Seg Neutrophils # Seg Neutrophils # Man Lymphocytes # (Manual) Monocytes # (Manual) Eosinophils # (Manual) APTT Heparin Anti-Xa Level ABG pH POC ABG pCO2 POC ABG pO2 ABG Hemoglobin ABG Oxyhemoglobin ABG Sodium ABG Potassium ABG Chloride ABG Glucose Carboxyhemoglobin Sodium Potassium Chloride BUN Creatinine Glucose POC Glucose 190 H 209 H 177 H Lactic Acid Calcium Phosphorus AST ALT Troponin T C-Reactive Protein Albumin HDL Cholesterol Arterial Blood Glucose Arterial Blood Ionized Calcium Urine WBC (Auto) 10/12/20 10/12/20 10/12/20 00:57 05:18 05:18 WBC 24.0 H RBC Hgb 9.4 L Hct 30.0 L MCV MCH 26 L RDW 23.9 H Plt Count 467 H Lymph % (Auto) Boyle % (Auto) Lymph # (Auto) Boyle # (Auto) Seg Neutrophils % Seg Neuts % (Manual) Monocytes % (Manual) 8.0 H Eosinophils % (Manual) Seg Neutrophils # Seg Neutrophils # Man 0.0 L Lymphocytes # (Manual) 0.0 L Monocytes # (Manual) Eosinophils # (Manual) APTT Heparin Anti-Xa Level ABG pH POC ABG pCO2 POC ABG pO2 ABG Hemoglobin ABG Oxyhemoglobin ABG Sodium ABG Potassium ABG Chloride ABG Glucose Carboxyhemoglobin Sodium Potassium 5.1 H D Chloride BUN 20 H Creatinine Glucose 183 H POC Glucose 176 H Lactic Acid Calcium Phosphorus AST ALT Troponin T C-Reactive Protein Albumin HDL Cholesterol Arterial Blood Glucose Arterial Blood Ionized Calcium Urine WBC (Auto) 10/12/20 10/12/20 10/12/20 05:52 11:20 17:37 WBC RBC Hgb Hct MCV MCH RDW Plt Count Lymph % (Auto) Boyle % (Auto) Lymph # (Auto) Boyle # (Auto) Seg Neutrophils % Seg Neuts % (Manual) Monocytes % (Manual) Eosinophils % (Manual) Seg Neutrophils # Seg Neutrophils # Man Lymphocytes # (Manual) Monocytes # (Manual) Eosinophils # (Manual) APTT Heparin Anti-Xa Level ABG pH POC ABG pCO2 POC ABG pO2 ABG Hemoglobin ABG Oxyhemoglobin ABG Sodium ABG Potassium ABG Chloride ABG Glucose Carboxyhemoglobin Sodium Potassium Chloride BUN Creatinine Glucose POC Glucose 167 H 179 H 150 H Lactic Acid Calcium Phosphorus AST ALT Troponin T C-Reactive Protein Albumin HDL Cholesterol Arterial Blood Glucose Arterial Blood Ionized Calcium Urine WBC (Auto) Allied health notes reviewed: nursing
[2020-10-12 19:54] LABS: Bilirubin,Urine NEG (Negative); Blood,Urine NEG (Negative); Color,Urine Yellow (Yellow); Protein,Urine <15 mg/dL mg/dL (Negative); Urobilinogen,Urine < 2.0 mg/dL (<2.0)
[2020-10-12] MEDS: SENNOSIDES 8.6 MG TAB PO SCH (21:37)
[2020-10-13] MEDS: HEPARIN 5,000 UNIT/1 ML VIAL SUB-Q SCH ×3 (06:15→22:27)
[2020-10-13] MEDS: INSULIN LISPRO 100 UNIT/ML SUB-Q SCH ×4 (06:16→17:56)
[2020-10-13] MEDS: MODAFINIL 100 MG TAB PO SCH (09:23)
[2020-10-13] MEDS: ASPIRIN 81 MG TAB CHEW PO SCH (09:24)
[2020-10-13] MEDS: FAMOTIDINE 20 MG TAB PO SCH ×2 (09:24→22:24)
[2020-10-13] MEDS: carvediloL 12.5 MG TAB PO SCH (09:24)
[2020-10-13] MEDS: LOSARTAN 25 MG TAB PO SCH (09:24)
[2020-10-13] MEDS: levETIRAcetam 500 MG/5 ML ORAL LIQD PO SCH ×2 (09:24→22:23)
[2020-10-13 11:24] LABS: Hematocrit 27.8 % (30.3-42.9); Hemoglobin 8.8 gm/dl (10.1-14.3); Mean Corpuscular HGB Conc 32 % (30-34); Mean Corpuscular Volume 82 fl (79-97); Platelet Count 438 K/mm3 (140-440); Red Blood Count 3.42 M/mm3 (3.65-5.03)
[2020-10-13 11:28] LABS: Red Cell Distribution Width 24.4 % (13.2-15.2)
[2020-10-13 11:43] LABS: BUN/Creatinine Ratio 36; Blood Urea Nitrogen 25 mg/dL (7-17); Calcium 10.3 mg/dL (8.4-10.2); Hemolysis Index 0
[2020-10-13] MEDS ORDERED: SODIUM CHLORIDE 0.9% 1000 ML 1,000 ML ONE (14:13)
[2020-10-13] MEDS: SODIUM CHLORIDE 0.9% 1000 ML 1,000 ML IV SCH ×2 (14:15→22:44)
--- NOTE | 2020-10-13 15:16 | Progress Note ---
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 neuro etiology trend temp and WBC curve last cultures on 09/25 no antibiotics at this time --Morbid obesity avoid hypoglycemia currently on no SSI- continue to monitor for need with inc in TF rate Disposition Plan: LTC v home with family Total Time Spent with Patient (Minutes): 60 Brief history: 45-year-old female with obesity hypoventilation syndrome and GERD who presented to the emergency department on 09/25/20 s/p cardiac arrest via EMS. Per EMS staff they were notified for shortness of breath and upon arrival patient was found to be in distress and subsequently went into cardiac arrest and she was treated in accordance to ACLS protocol and intubated in the field and transported to [facility]. Evaluation in the emergency department upon arrival to the emergency department patient was found to have persistent hypoxic respiratory failure and was maintained on ventilator support. Work-up revealed sepsis, pneumonia, seizure disorder, metabolic acidosis as well as NSTEMI. Cardiology, neurology, CCM were consulted. Daily clinical course: 09/26/20: Patient was admitted with out of the hospital cardiac arrest status post CPR per ACLS protocols Anoxic brain injury, unresponsive Orally intubated on ventilatory support Vital signs reviewed. called patient's aunt , NOK Ms. Debora Minor at [phone] and discussed in detail, patient's condition, tests and reports, consultants recommendations, poor prognosis, treatment plan[explained in detail the medications and their role in the treatment] pending tests. 09/27/2020; patient remains unresponsive, intubated on ventilatory support Follow neurology evaluation and recommendations 10/01: Patient has persistent leukocytosis and hyperchloremia. Patient now has hypernatremia and renal function has improved to CR/BUN 1.1/15 from 1.08/04. Patient has hypophosphatemia which was repleted yesterday and we will obtain a.m. labs. Patient has MRI brain pending. Family updated by neurology over the phone and AUTOMATION TEST ENGINEER at bedside. Patient niece was at bedside today and she will defer goals of care decision after MRI results. EEG findings were explained. According to her the patient was in found to be unresponsive by family and was given bystander CPR before arrival of EMS. 10/02: Patient received MRI brain today which showed diffuse cerebral restricted diffusion consistent with global anoxic brain injury, no associated hemorrhage or herniation and additional small acute lacunar infarct in the right paracentral lesia. 10/03: Cardiology will follow the patient peripherally given poor prognosis, Dr. Alvarado and has spoken to the family regarding prognosis today. Given hypotension patient will receive lower doses of blood pressure medicine and per social media marketer request a referral to [facility]. 10/04: Patient bilateral Doppler ultrasound are negative and heparin drip has been stopped. [facility] referral made by CM which was denied. Family is aware. No acute events reported overnight. Patient family was at bedside and updated by neurologist. Explained to them that pt. is not brain but is with significant brain injury, she is off sedation for a week with no clear changes in her clinical presentation. 10/05: Today patient is no longer hypernatremic so free water flushes were resume at the rate nutrition as ordered. Decrease in Cozaar today patient's T-max 100.7 which was responsive to Tylenol. At the time examination patient is on assist control tidal volume 450, rate of 12, PEEP of 6 and 25% FiO2. Patient will be tried on a CPAP trial today. 10/06/2020: No family at the bedside, spoke with critical care, patient was opening her eyes but continues to be encephalopathic. Patient on cefepime, will get pro-Kareem, if negative, DC antibiotics. Continues to be on CPAP and intubated. 10/07: No significant change clinically, patient remains on mechanical ventilation. discussed LT plan with Aunt and she is wanting a trach/peg and to take pt home with her; pt is a full code at this time. 10/08: General surgery consulted for trach and PEG placement. Patient remains on mechanical ventilation with diffuse anoxic brain injury status post cardiac arrest. Continue supportive care monitor clinically. Patient is full code very poor prognosis. 10/09/20; patient remains on ventilator with trach tube, started on tube feeding with PEG. Continue supportive care, vital stable. email manager working on placement. 10/10/20: Patient mechanically ventilated with trach tube. Tolerating tube feeding. email manager working on placement. Very poor prognosis need long-term placement. 10/11/20; patient remains mechanically ventilated via trach tube. Critical care working on to wean off from the vent. Very poor prognosis. Continue supportive care and pending placement. 10/12/20; patient intermittently spiking fever. Order for stat blood culture, UA and chest x-ray. Patient also has elevated white count, monitor off antibiotics for now till culture results available. Patient on CPAP with a trach tube. Discussed plan of care patient's aunt at bedside. I explained to family that patient still with guarded prognosis and poor chance for recovery from diffuse anoxic brain injury. 10/13/20: Patient noted to be hypotensive today, will initiate IV fluid. Chest x-ray yesterday showed no infiltrate, UA normal. Blood culture 24-hour showing no growth. Temperature trended down and currently appears to be normal. Will hold BP meds and will follow clinically. Family at the bedside, updated. Subjective Date of service: 10/13/20 Principal diagnosis: Cardiac arrest; Ac. respiratory failure; Anoxic encephalopathy; PNA; NSTEMI Interval history: Patient seen and examined. Medical records and medication list reviewed. No acute event overnight noted by the RN. Patient on ventilator with trach tube, started on tube feeding with newly placed PEG tube email manager working on placement BP noted to be low Discussed with patient's aunt at bedside -updated with all clinical details Objective - Exam Narrative Exam: General appearance: Present: no acute distress, well-nourished, other (not responsive ) - EENT ENT: clear oral mucosa - Neck Neck: Present: supple, normal ROM, trach in place - Respiratory Respiratory effort: normal - Cardiovascular Rhythm: regular Heart Sounds: Present: S1 & S2 Peripheral Pulses: within normal limits - Abdominal General gastrointestinal: soft, non-tender, PEG in place - Integumentary Integumentary: Present: clear, warm, dry - Allied Health Allied health notes reviewed: nursing, case management - Constitutional Vitals: Vital Signs - 12hr 10/13/20 10/13/20 10/13/20 03:30 03:52 04:00 Temperature 100.8 F H Pulse Rate 111 H 116 H 117 H Pulse Rate [ 117 H From Monitor] Respiratory 14 17 Rate Blood Pressure 129/77 129/77 148/76 O2 Sat by Pulse 100 100 99 Oximetry O2 Sat by Pulse Oximetry [ Assessment] 10/13/20 10/13/20 10/13/20 04:30 05:00 05:30 Temperature Pulse Rate 120 H 128 H 126 H Pulse Rate [ From Monitor] Respiratory 18 29 H 29 H Rate Blood Pressure 148/76 149/84 148/76 O2 Sat by Pulse 100 100 100 Oximetry O2 Sat by Pulse Oximetry [ Assessment] 10/13/20 10/13/20 10/13/20 06:00 06:30 07:00 Temperature Pulse Rate 121 H 115 H 118 H Pulse Rate [ From Monitor] Respiratory 20 12 14 Rate Blood Pressure 147/69 147/69 139/73 O2 Sat by Pulse 98 100 100 Oximetry O2 Sat by Pulse Oximetry [ Assessment] 10/13/20 10/13/20 10/13/20 07:21 07:30 08:00 Temperature 100 F H Pulse Rate 126 H 123 H Pulse Rate [ From Monitor] Respiratory 17 19 Rate Blood Pressure 139/73 139/73 O2 Sat by Pulse 99 97 Oximetry O2 Sat by Pulse Oximetry [ Assessment] 10/13/20 10/13/20 10/13/20 08:10 08:30 09:00 Temperature Pulse Rate 117 H 123 H 117 H Pulse Rate [ From Monitor] Respiratory 23 22 Rate Blood Pressure 90/73 90/73 143/64 O2 Sat by Pulse 99 96 Oximetry O2 Sat by Pulse 99 Oximetry [ Assessment] 10/13/20 10/13/20 10/13/20 09:24 09:30 10:00 Temperature Pulse Rate 119 H 118 H 112 H Pulse Rate [ From Monitor] Respiratory 19 16 Rate Blood Pressure 143/64 143/64 136/61 O2 Sat by Pulse 100 Oximetry O2 Sat by Pulse Oximetry [ Assessment] 10/13/20 10/13/20 10/13/20 10:30 11:00 11:30 Temperature Pulse Rate 108 H 106 H 107 H Pulse Rate [ From Monitor] Respiratory 20 18 24 Rate Blood Pressure 136/61 128/78 128/78 O2 Sat by Pulse 98 96 94 Oximetry O2 Sat by Pulse Oximetry [ Assessment] 10/13/20 10/13/20 10/13/20 11:47 12:00 12:30 Temperature 99.6 F Pulse Rate 104 H Pulse Rate [ From Monitor] Respiratory 23 Rate Blood Pressure 128/78 88/50 O2 Sat by Pulse 95 98 Oximetry O2 Sat by Pulse Oximetry [ Assessment] 10/13/20 10/13/20 10/13/20 13:00 13:30 14:00 Temperature Pulse Rate 100 H 99 H 101 H Pulse Rate [ From Monitor] Respiratory 22 21 22 Rate Blood Pressure 94/48 89/44 85/43 O2 Sat by Pulse 97 97 99 Oximetry O2 Sat by Pulse Oximetry [ Assessment] 10/13/20 14:30 Temperature Pulse Rate 103 H Pulse Rate [ From Monitor] Respiratory 22 Rate Blood Pressure 98/44 O2 Sat by Pulse 97 Oximetry O2 Sat by Pulse Oximetry [ Assessment] - Labs CBC & Chem 7: 10/13/20 11:09 10/13/20 11:09 Labs: Abnormal lab results 10/12/20 10/13/20 10/13/20 Range/Units 17:37 00:06 05:31 WBC (4.5-11.0) K/mm3 RBC (3.65-5.03) M/mm3 Hgb (10.1-14.3) gm/dl Hct (30.3-42.9) % MCH (28-32) pg RDW (13.2-15.2) % BUN (7-17) mg/dL Glucose (65-100) mg/dL POC Glucose 150 H 181 H 178 H (70-105) mg/dL Calcium (8.4-10.2) mg/dL 10/13/20 10/13/20 10/13/20 Range/Units 11:09 11:09 11:28 WBC 14.3 H (4.5-11.0) K/mm3 RBC 3.42 L (3.65-5.03) M/mm3 Hgb 8.8 L (10.1-14.3) gm/dl Hct 27.8 L (30.3-42.9) % MCH 26 L (28-32) pg RDW 24.4 H (13.2-15.2) % BUN 25 H (7-17) mg/dL Glucose 207 H (65-100) mg/dL POC Glucose 209 H (70-105) mg/dL Calcium 10.3 H (8.4-10.2) mg/dL HEART Score - HEART Score EKG: Normal Age: 45-65 Risk factors: No known risk factors Troponin: Troponin T < 0.010 ng/mL (0.00-0.029) 10/02/20 06:48 Troponin: < normal limit - Critical Actions Critical Actions: 0-3 pts:0.9-1.7%risk of adverse cardiac event.Candidate for discharge
[2020-10-13] MEDS ORDERED: SODIUM CHLORIDE 0.9% 500 ML 500 ML ONE (15:38)
--- NOTE | 2020-10-13 16:45 | Progress Note ---
Assessment and Plan Cardiac arrest with return of spontaneous circulation. Acute respiratory failure, on mechanical ventilatory support. Acute toxic metabolic encephalopathy. Possible anoxic encephalopathy. Obesity. History of obesity hypoventilation syndrome. Leukocytosis. Likely aspiration pneumonia, bilateral. Anemia that is microcytic. Lactic acidosis. Elevated serum transaminases. Non-ST elevation myocardial infarction - bolus 1 liter IVNS - hold all antihypertensives except Coreg to 3,125mg bid (with hold parameters) - midodrine prn X 48 hours - continue Daily SAT and SBT assessment as tolerated - continue scopolamine patch for secretion control - LTAC evaluation ongoing - continue care as below otherwise; - continue to wean supplemental oxygen for target O2 sat's > 90% acutely - VAP bundle addressed - continue lung protective strategies - continue bronchodilators with pulmonary hygiene per RT - wean per pulmonary driven protocols otherwise - continue accuchecks with glycemic control per SSI (While critically ill target blood glucose of 140-180 mg/dL; avoid hypoglycemia) - sedation prn for target RASS 0 to -1 - avoid nephrotoxins, renally dose all medications - continue to avoid benzodiazepine's, reduce the possibility of delirium - completed AB's per ID rec's - prn analgesia per CPOT score - Maintenance of sleep-wake cycle, avoid delirium - continue enteral nutritional support at goal rate as tolerated - G.I. & VTE prophylaxis - PT/OT/ROM exercises - continue mobility protocols for pressure ulcer prophylaxis - Monitor hemodynamics closely - continue other care per attending / other consultants - discharge planning ongoing concurrently COVID SPECIFIC INTERVENTIONS - COVID tests result was negative .... Re-evaluate in am & prn CONDITION: CRITICAL PROGNOSIS: GUARDED CODE STATUS: FULL CODE The high probability of a clinically significant, sudden or life-threatening deterioration of the [respiratory, cardiovascular & neurologic] system(s) required my full and direct attention, intervention and personal management. The aggregate critical care time was [33] minutes without overlap. Time includes spent on; [x] Data Review and interpretation [x] Patient assessment and monitoring of vital signs [x] Documentation [x] Medication orders and management Subjective Date of service: 10/13/20 Principal diagnosis: Cardiac arrest; Ac. respiratory failure; Anoxic encephalopathy; PNA; NSTEMI Interval history: Patient is seen today for: Cardiac arrest with ROSC; Acute respiratory failure; Anoxic encephalopathy; Obesity; OHS; Aspiration pneumonia; NSTEMI Seen and examined at bedside; 24hour events reviewed; nursing and respiratory care staff consulted; no adverse overnight events reported to me; resting in bed; remains on MVS; hypotensive today with MAP's in the low 50's; AMS is persistent; no seizures; No emesis or overt aspiration and no high grade fevers Objective Vital Signs - 12hr 10/13/20 10/13/20 10/13/20 05:00 05:30 06:00 Temperature Pulse Rate 128 H 126 H 121 H Respiratory 29 H 29 H 20 Rate Blood Pressure 149/84 148/76 147/69 O2 Sat by Pulse 100 100 98 Oximetry O2 Sat by Pulse Oximetry [ Assessment] 10/13/20 10/13/20 10/13/20 06:30 07:00 07:21 Temperature 100 F H Pulse Rate 115 H 118 H Respiratory 12 14 Rate Blood Pressure 147/69 139/73 O2 Sat by Pulse 100 100 Oximetry O2 Sat by Pulse Oximetry [ Assessment] 10/13/20 10/13/20 10/13/20 07:30 08:00 08:10 Temperature Pulse Rate 126 H 123 H 117 H Respiratory 17 19 Rate Blood Pressure 139/73 139/73 90/73 O2 Sat by Pulse 99 97 99 Oximetry O2 Sat by Pulse 99 Oximetry [ Assessment] 10/13/20 10/13/20 10/13/20 08:30 09:00 09:24 Temperature Pulse Rate 123 H 117 H 119 H Respiratory 23 22 Rate Blood Pressure 90/73 143/64 143/64 O2 Sat by Pulse 96 Oximetry O2 Sat by Pulse Oximetry [ Assessment] 10/13/20 10/13/20 10/13/20 09:30 10:00 10:30 Temperature Pulse Rate 118 H 112 H 108 H Respiratory 19 16 20 Rate Blood Pressure 143/64 136/61 136/61 O2 Sat by Pulse 100 98 Oximetry O2 Sat by Pulse Oximetry [ Assessment] 10/13/20 10/13/20 10/13/20 11:00 11:30 11:47 Temperature 99.6 F Pulse Rate 106 H 107 H Respiratory 18 24 Rate Blood Pressure 128/78 128/78 O2 Sat by Pulse 96 94 Oximetry O2 Sat by Pulse Oximetry [ Assessment] 10/13/20 10/13/20 10/13/20 12:00 12:30 13:00 Temperature Pulse Rate 104 H 100 H Respiratory 23 22 Rate Blood Pressure 128/78 88/50 94/48 O2 Sat by Pulse 95 98 97 Oximetry O2 Sat by Pulse Oximetry [ Assessment] 10/13/20 10/13/20 10/13/20 13:30 14:00 14:30 Temperature Pulse Rate 99 H 101 H 103 H Respiratory 21 22 22 Rate Blood Pressure 89/44 85/43 98/44 O2 Sat by Pulse 97 99 97 Oximetry O2 Sat by Pulse Oximetry [ Assessment] 10/13/20 10/13/20 15:58 16:00 Temperature 98.8 F Pulse Rate 103 H Respiratory 19 Rate Blood Pressure 108/59 O2 Sat by Pulse 100 Oximetry O2 Sat by Pulse Oximetry [ Assessment] Constitutional: no acute distress, other (middle aged obese female with mildly increased respiratory effort at rest on MVS) Eyes: non-icteric ENT: oropharynx moist, other (+ midline tracheostomy) Neck: supple, no lymphadenopathy, no JVD Effort: mildly labored Ascultation: Bilateral: rhonchi Percussion: Bilateral: not dull Cardiovascular: regular rate and rhythm, other (S1,S2) Gastrointestinal: normoactive bowel sounds, soft, non-tender, non-distended Integumentary: normal Extremities: no cyanosis, no edema, pulses normal, no ischemia or petechiae Neurologic: pupils equal and round, unable to assess Psychiatric: other (unable to assess re: AMS) CBC and BMP: 10/15/20 04:56 10/15/20 04:56 ABG, PT/INR, D-dimer: ABG ABG pH 7.424 (7.320-7.450) 10/01/20 04:12 POC ABG pCO2 41.6 mmHg (32.0-48.0) 10/01/20 04:12 POC ABG pO2 73.0 mmHg (83-108) L 10/01/20 04:12 POC ABG HCO3 26.6 10/01/20 04:12 ABG O2 Saturation 94.3 (0-100) 10/01/20 04:12 PT/INR, D-dimer PT 13.7 Sec. (12.2-14.9) 09/25/20 18:15 INR 1.00 (0.87-1.13) 09/25/20 18:15 Abnormal lab findings: Abnormal Labs 09/25/20 09/25/20 09/25/20 17:19 17:21 18:15 WBC 13.8 H RBC Hgb 9.9 L Hct MCV 76 L MCH 23 L RDW 17.9 H Plt Count Lymph % (Auto) [place] % (Auto) Lymph # (Auto) [place] # (Auto) Seg Neutrophils % 78.6 H Seg Neuts % (Manual) Monocytes % (Manual) Eosinophils % (Manual) Seg Neutrophils # 10.8 H Seg Neutrophils # Man Lymphocytes # (Manual) Monocytes # (Manual) Eosinophils # (Manual) APTT Heparin Anti-Xa Level ABG pH POC ABG pCO2 26.2 L POC ABG pO2 554.5 H ABG Hemoglobin 9.0 L ABG Oxyhemoglobin 99.0 H ABG Sodium 134.5 L ABG Potassium ABG Chloride ABG Glucose 220 H Carboxyhemoglobin Sodium Potassium Chloride BUN Creatinine Glucose POC Glucose Lactic Acid Calcium Phosphorus AST ALT Troponin T C-Reactive Protein Albumin HDL Cholesterol Arterial Blood Glucose 220 H Arterial Blood Ionized Calcium 4.2 L Urine WBC (Auto) 14.0 H 09/25/20 09/25/20 09/25/20 18:15 18:15 18:15 WBC RBC Hgb Hct MCV MCH RDW Plt Count Lymph % (Auto) [place] % (Auto) Lymph # (Auto) [place] # (Auto) Seg Neutrophils % Seg Neuts % (Manual) Monocytes % (Manual) Eosinophils % (Manual) Seg Neutrophils # Seg Neutrophils # Man Lymphocytes # (Manual) Monocytes # (Manual) Eosinophils # (Manual) APTT 21.1 L Heparin Anti-Xa Level ABG pH POC ABG pCO2 POC ABG pO2 ABG Hemoglobin ABG Oxyhemoglobin ABG Sodium ABG Potassium ABG Chloride ABG Glucose Carboxyhemoglobin Sodium Potassium Chloride BUN Creatinine Glucose 113 H POC Glucose Lactic Acid 2.60 H* Calcium Phosphorus AST 162 H ALT 131 H Troponin T 0.096 H C-Reactive Protein Albumin HDL Cholesterol Arterial Blood Glucose Arterial Blood Ionized Calcium Urine WBC (Auto) 09/25/20 09/25/20 09/26/20 23:13 23:13 03:15 WBC RBC Hgb Hct MCV MCH RDW Plt Count Lymph % (Auto) [place] % (Auto) Lymph # (Auto) [place] # (Auto) Seg Neutrophils % Seg Neuts % (Manual) Monocytes % (Manual) Eosinophils % (Manual) Seg Neutrophils # Seg Neutrophils # Man Lymphocytes # (Manual) Monocytes # (Manual) Eosinophils # (Manual) APTT Heparin Anti-Xa Level ABG pH 7.451 H POC ABG pCO2 27.1 L POC ABG pO2 ABG Hemoglobin 10.4 L ABG Oxyhemoglobin ABG Sodium 135.2 L ABG Potassium ABG Chloride 108.0 H ABG Glucose 137 H Carboxyhemoglobin Sodium Potassium Chloride BUN Creatinine Glucose POC Glucose Lactic Acid 2.90 H* Calcium Phosphorus AST ALT Troponin T 0.170 H* D C-Reactive Protein Albumin HDL Cholesterol 60 H Arterial Blood Glucose 137 H Arterial Blood Ionized Calcium 4.2 L Urine WBC (Auto) 09/26/20 09/26/20 09/26/20 05:09 05:09 05:09 WBC 15.8 H RBC Hgb 10.0 L Hct MCV 77 L MCH 24 L RDW 17.8 H Plt Count Lymph % (Auto) 7.2 L [place] % (Auto) Lymph # (Auto) 1.1 L [place] # (Auto) 1.0 H Seg Neutrophils % 86.1 H Seg Neuts % (Manual) Monocytes % (Manual) Eosinophils % (Manual) Seg Neutrophils # 13.6 H Seg Neutrophils # Man Lymphocytes # (Manual) Monocytes # (Manual) Eosinophils # (Manual) APTT Heparin Anti-Xa Level ABG pH POC ABG pCO2 POC ABG pO2 ABG Hemoglobin ABG Oxyhemoglobin ABG Sodium ABG Potassium ABG Chloride ABG Glucose Carboxyhemoglobin Sodium Potassium Chloride BUN Creatinine Glucose 114 H POC Glucose Lactic Acid 2.40 H* Calcium 8.1 L Phosphorus AST 112 H ALT 103 H Troponin T C-Reactive Protein Albumin 3.8 L HDL Cholesterol Arterial Blood Glucose Arterial Blood Ionized Calcium Urine WBC (Auto) 09/26/20 09/27/20 09/27/20 15:45 03:33 04:41 WBC RBC Hgb 9.0 L Hct 28.6 L MCV MCH RDW Plt Count Lymph % (Auto) [place] % (Auto) Lymph # (Auto) [place] # (Auto) Seg Neutrophils % Seg Neuts % (Manual) Monocytes % (Manual) Eosinophils % (Manual) Seg Neutrophils # Seg Neutrophils # Man Lymphocytes # (Manual) Monocytes # (Manual) Eosinophils # (Manual) APTT Heparin Anti-Xa Level ABG pH POC ABG pCO2 POC ABG pO2 141.6 H ABG Hemoglobin 9.3 L ABG Oxyhemoglobin ABG Sodium ABG Potassium 3.2 L ABG Chloride 108.0 H ABG Glucose 118 H Carboxyhemoglobin Sodium Potassium Chloride BUN Creatinine Glucose POC Glucose Lactic Acid Calcium Phosphorus 2.20 L AST ALT Troponin T C-Reactive Protein 4.30 H Albumin HDL Cholesterol Arterial Blood Glucose 118 H Arterial Blood Ionized Calcium 4.2 L Urine WBC (Auto) 09/27/20 09/27/20 09/28/20 04:41 22:53 04:00 WBC RBC Hgb Hct MCV MCH RDW Plt Count Lymph % (Auto) [place] % (Auto) Lymph # (Auto) [place] # (Auto) Seg Neutrophils % Seg Neuts % (Manual) Monocytes % (Manual) Eosinophils % (Manual) Seg Neutrophils # Seg Neutrophils # Man Lymphocytes # (Manual) Monocytes # (Manual) Eosinophils # (Manual) APTT Heparin Anti-Xa Level 0.75 H ABG pH 7.467 H POC ABG pCO2 POC ABG pO2 78.9 L ABG Hemoglobin 9.8 L ABG Oxyhemoglobin ABG Sodium ABG Potassium ABG Chloride ABG Glucose 141 H Carboxyhemoglobin Sodium Potassium Chloride BUN Creatinine Glucose POC Glucose 109 H Lactic Acid Calcium Phosphorus AST ALT Troponin T C-Reactive Protein Albumin HDL Cholesterol Arterial Blood Glucose 141 H Arterial Blood Ionized Calcium Urine WBC (Auto) 09/28/20 09/28/20 09/28/20 05:02 05:02 17:42 WBC 11.9 H RBC Hgb 9.3 L Hct 29.5 L MCV 76 L MCH 24 L RDW 19.4 H Plt Count Lymph % (Auto) [place] % (Auto) 11.1 H Lymph # (Auto) [place] # (Auto) 1.3 H Seg Neutrophils % 72.5 H Seg Neuts % (Manual) Monocytes % (Manual) Eosinophils % (Manual) Seg Neutrophils # 8.6 H Seg Neutrophils # Man Lymphocytes # (Manual) Monocytes # (Manual) Eosinophils # (Manual) APTT Heparin Anti-Xa Level ABG pH POC ABG pCO2 POC ABG pO2 ABG Hemoglobin ABG Oxyhemoglobin ABG Sodium ABG Potassium ABG Chloride ABG Glucose Carboxyhemoglobin Sodium Potassium 3.4 L Chloride BUN Creatinine Glucose 126 H POC Glucose 69 L Lactic Acid Calcium Phosphorus AST 129 H ALT 60 H Troponin T C-Reactive Protein Albumin 3.7 L HDL Cholesterol Arterial Blood Glucose Arterial Blood Ionized Calcium Urine WBC (Auto) 09/29/20 09/29/20 09/29/20 04:00 05:53 08:39 WBC RBC Hgb 10.0 L Hct MCV MCH RDW Plt Count Lymph % (Auto) [place] % (Auto) Lymph # (Auto) [place] # (Auto) Seg Neutrophils % Seg Neuts % (Manual) Monocytes % (Manual) Eosinophils % (Manual) Seg Neutrophils # Seg Neutrophils # Man Lymphocytes # (Manual) Monocytes # (Manual) Eosinophils # (Manual) APTT Heparin Anti-Xa Level ABG pH POC ABG pCO2 POC ABG pO2 81.1 L ABG Hemoglobin 11.0 L ABG Oxyhemoglobin ABG Sodium ABG Potassium ABG Chloride 110.0 H ABG Glucose 129 H Carboxyhemoglobin Sodium Potassium Chloride BUN Creatinine Glucose POC Glucose 58 L Lactic Acid Calcium Phosphorus AST ALT Troponin T C-Reactive Protein Albumin HDL Cholesterol Arterial Blood Glucose 129 H Arterial Blood Ionized Calcium Urine WBC (Auto) 09/30/20 09/30/20 09/30/20 00:10 10:45 15:05 WBC 12.5 H RBC Hgb 9.9 L Hct MCV 78 L MCH 24 L RDW 21.0 H Plt Count Lymph % (Auto) [place] % (Auto) 13.5 H Lymph # (Auto) [place] # (Auto) 1.7 H Seg Neutrophils % Seg Neuts % (Manual) Monocytes % (Manual) Eosinophils % (Manual) Seg Neutrophils # 8.1 H Seg Neutrophils # Man Lymphocytes # (Manual) Monocytes # (Manual) Eosinophils # (Manual) APTT Heparin Anti-Xa Level ABG pH 7.469 H POC ABG pCO2 POC ABG pO2 ABG Hemoglobin 10.4 L ABG Oxyhemoglobin ABG Sodium 146.2 H ABG Potassium ABG Chloride 109.0 H ABG Glucose 155 H Carboxyhemoglobin Sodium Potassium Chloride BUN Creatinine Glucose POC Glucose 131 H Lactic Acid Calcium Phosphorus AST ALT Troponin T C-Reactive Protein Albumin HDL Cholesterol Arterial Blood Glucose 155 H Arterial Blood Ionized Calcium Urine WBC (Auto) 09/30/20 09/30/20 10/01/20 15:05 17:37 00:29 WBC RBC Hgb Hct MCV MCH RDW Plt Count Lymph % (Auto) [place] % (Auto) Lymph # (Auto) [place] # (Auto) Seg Neutrophils % Seg Neuts % (Manual) Monocytes % (Manual) Eosinophils % (Manual) Seg Neutrophils # Seg Neutrophils # Man Lymphocytes # (Manual) Monocytes # (Manual) Eosinophils # (Manual) APTT Heparin Anti-Xa Level ABG pH POC ABG pCO2 POC ABG pO2 ABG Hemoglobin ABG Oxyhemoglobin ABG Sodium ABG Potassium ABG Chloride ABG Glucose Carboxyhemoglobin Sodium Potassium Chloride 109.1 H BUN 18 H Creatinine 1.4 H Glucose 122 H POC Glucose 127 H 119 H Lactic Acid Calcium Phosphorus 2.00 L AST ALT Troponin T C-Reactive Protein Albumin HDL Cholesterol Arterial Blood Glucose Arterial Blood Ionized Calcium Urine WBC (Auto) 10/01/20 10/01/20 10/01/20 04:12 05:56 05:56 WBC 14.2 H RBC Hgb 9.7 L Hct MCV 78 L MCH 23 L RDW 21.1 H Plt Count Lymph % (Auto) [place] % (Auto) Lymph # (Auto) [place] # (Auto) Seg Neutrophils % Seg Neuts % (Manual) Monocytes % (Manual) Eosinophils % (Manual) Seg Neutrophils # Seg Neutrophils # Man Lymphocytes # (Manual) Monocytes # (Manual) Eosinophils # (Manual) APTT Heparin Anti-Xa Level ABG pH POC ABG pCO2 POC ABG pO2 73.0 L ABG Hemoglobin 10.0 L ABG Oxyhemoglobin 93.7 L ABG Sodium 146.4 H ABG Potassium ABG Chloride 110.0 H ABG Glucose 124 H Carboxyhemoglobin 0.3 L Sodium 147 H Potassium Chloride 109.6 H BUN Creatinine Glucose 109 H POC Glucose Lactic Acid Calcium Phosphorus AST ALT Troponin T C-Reactive Protein Albumin HDL Cholesterol Arterial Blood Glucose 124 H Arterial Blood Ionized Calcium Urine WBC (Auto) 10/01/20 10/01/20 10/02/20 19:21 23:17 05:27 WBC RBC Hgb Hct MCV MCH RDW Plt Count Lymph % (Auto) [place] % (Auto) Lymph # (Auto) [place] # (Auto) Seg Neutrophils % Seg Neuts % (Manual) Monocytes % (Manual) Eosinophils % (Manual) Seg Neutrophils # Seg Neutrophils # Man Lymphocytes # (Manual) Monocytes # (Manual) Eosinophils # (Manual) APTT Heparin Anti-Xa Level ABG pH POC ABG pCO2 POC ABG pO2 ABG Hemoglobin ABG Oxyhemoglobin ABG Sodium ABG Potassium ABG Chloride ABG Glucose Carboxyhemoglobin Sodium Potassium Chloride BUN Creatinine Glucose POC Glucose 126 H 160 H 121 H Lactic Acid Calcium Phosphorus AST ALT Troponin T C-Reactive Protein Albumin HDL Cholesterol Arterial Blood Glucose Arterial Blood Ionized Calcium Urine WBC (Auto) 10/02/20 10/02/20 10/02/20 06:48 06:48 11:51 WBC 14.2 H RBC Hgb 9.6 L Hct MCV MCH 25 L RDW 21.7 H Plt Count Lymph % (Auto) [place] % (Auto) Lymph # (Auto) [place] # (Auto) Seg Neutrophils % Seg Neuts % (Manual) Monocytes % (Manual) Eosinophils % (Manual) Seg Neutrophils # Seg Neutrophils # Man Lymphocytes # (Manual) Monocytes # (Manual) Eosinophils # (Manual) APTT Heparin Anti-Xa Level ABG pH POC ABG pCO2 POC ABG pO2 ABG Hemoglobin ABG Oxyhemoglobin ABG Sodium ABG Potassium ABG Chloride ABG Glucose Carboxyhemoglobin Sodium 147 H Potassium Chloride 110.4 H BUN Creatinine Glucose 134 H POC Glucose 121 H Lactic Acid Calcium Phosphorus 2.20 L AST ALT Troponin T C-Reactive Protein Albumin HDL Cholesterol Arterial Blood Glucose Arterial Blood Ionized Calcium Urine WBC (Auto) 10/02/20 10/03/20 10/03/20 17:19 00:35 07:24 WBC 12.9 H RBC Hgb 8.9 L Hct 29.6 L MCV MCH 24 L RDW 21.9 H Plt Count Lymph % (Auto) [place] % (Auto) Lymph # (Auto) [place] # (Auto) Seg Neutrophils % Seg Neuts % (Manual) Monocytes % (Manual) Eosinophils % (Manual) Seg Neutrophils # Seg Neutrophils # Man Lymphocytes # (Manual) Monocytes # (Manual) Eosinophils # (Manual) APTT Heparin Anti-Xa Level ABG pH POC ABG pCO2 POC ABG pO2 ABG Hemoglobin ABG Oxyhemoglobin ABG Sodium ABG Potassium ABG Chloride ABG Glucose Carboxyhemoglobin Sodium Potassium Chloride BUN Creatinine Glucose POC Glucose 107 H 112 H Lactic Acid Calcium Phosphorus AST ALT Troponin T C-Reactive Protein Albumin HDL Cholesterol Arterial Blood Glucose Arterial Blood Ionized Calcium Urine WBC (Auto) 10/03/20 10/03/20 10/03/20 07:24 17:27 20:19 WBC RBC Hgb Hct MCV MCH RDW Plt Count Lymph % (Auto) [place] % (Auto) Lymph # (Auto) [place] # (Auto) Seg Neutrophils % Seg Neuts % (Manual) Monocytes % (Manual) Eosinophils % (Manual) Seg Neutrophils # Seg Neutrophils # Man Lymphocytes # (Manual) Monocytes # (Manual) Eosinophils # (Manual) APTT Heparin Anti-Xa Level 0.18 L ABG pH POC ABG pCO2 POC ABG pO2 ABG Hemoglobin ABG Oxyhemoglobin ABG Sodium ABG Potassium ABG Chloride ABG Glucose Carboxyhemoglobin Sodium 147 H Potassium Chloride 110.4 H BUN Creatinine Glucose 128 H POC Glucose 136 H Lactic Acid Calcium Phosphorus AST ALT Troponin T C-Reactive Protein Albumin HDL Cholesterol Arterial Blood Glucose Arterial Blood Ionized Calcium Urine WBC (Auto) 10/03/20 10/04/20 10/04/20 23:34 04:07 06:12 WBC RBC Hgb Hct MCV MCH RDW Plt Count Lymph % (Auto) [place] % (Auto) Lymph # (Auto) [place] # (Auto) Seg Neutrophils % Seg Neuts % (Manual) Monocytes % (Manual) Eosinophils % (Manual) Seg Neutrophils # Seg Neutrophils # Man Lymphocytes # (Manual) Monocytes # (Manual) Eosinophils # (Manual) APTT Heparin Anti-Xa Level 0.25 L ABG pH POC ABG pCO2 POC ABG pO2 ABG Hemoglobin ABG Oxyhemoglobin ABG Sodium ABG Potassium ABG Chloride ABG Glucose Carboxyhemoglobin Sodium Potassium Chloride BUN Creatinine Glucose POC Glucose 119 H 128 H Lactic Acid Calcium Phosphorus AST ALT Troponin T C-Reactive Protein Albumin HDL Cholesterol Arterial Blood Glucose Arterial Blood Ionized Calcium Urine WBC (Auto) 10/04/20 10/04/20 10/05/20 11:38 17:39 00:17 WBC RBC Hgb Hct MCV MCH RDW Plt Count Lymph % (Auto) [place] % (Auto) Lymph # (Auto) [place] # (Auto) Seg Neutrophils % Seg Neuts % (Manual) Monocytes % (Manual) Eosinophils % (Manual) Seg Neutrophils # Seg Neutrophils # Man Lymphocytes # (Manual) Monocytes # (Manual) Eosinophils # (Manual) APTT Heparin Anti-Xa Level ABG pH POC ABG pCO2 POC ABG pO2 ABG Hemoglobin ABG Oxyhemoglobin ABG Sodium ABG Potassium ABG Chloride ABG Glucose Carboxyhemoglobin Sodium Potassium Chloride BUN Creatinine Glucose POC Glucose 129 H 136 H 125 H Lactic Acid Calcium Phosphorus AST ALT Troponin T C-Reactive Protein Albumin HDL Cholesterol Arterial Blood Glucose Arterial Blood Ionized Calcium Urine WBC (Auto) 10/05/20 10/05/20 10/05/20 04:17 04:17 05:31 WBC 13.0 H RBC Hgb 9.1 L Hct 29.5 L MCV MCH 25 L RDW 22.2 H Plt Count Lymph % (Auto) [place] % (Auto) Lymph # (Auto) [place] # (Auto) Seg Neutrophils % Seg Neuts % (Manual) Monocytes % (Manual) Eosinophils % (Manual) Seg Neutrophils # Seg Neutrophils # Man Lymphocytes # (Manual) Monocytes # (Manual) Eosinophils # (Manual) APTT Heparin Anti-Xa Level ABG pH POC ABG pCO2 POC ABG pO2 ABG Hemoglobin ABG Oxyhemoglobin ABG Sodium ABG Potassium ABG Chloride ABG Glucose Carboxyhemoglobin Sodium Potassium Chloride BUN Creatinine Glucose 148 H POC Glucose 160 H Lactic Acid Calcium Phosphorus AST ALT Troponin T C-Reactive Protein Albumin HDL Cholesterol Arterial Blood Glucose Arterial Blood Ionized Calcium Urine WBC (Auto) 10/05/20 10/05/20 10/05/20 12:09 17:33 23:30 WBC RBC Hgb Hct MCV MCH RDW Plt Count Lymph % (Auto) [place] % (Auto) Lymph # (Auto) [place] # (Auto) Seg Neutrophils % Seg Neuts % (Manual) Monocytes % (Manual) Eosinophils % (Manual) Seg Neutrophils # Seg Neutrophils # Man Lymphocytes # (Manual) Monocytes # (Manual) Eosinophils # (Manual) APTT Heparin Anti-Xa Level ABG pH POC ABG pCO2 POC ABG pO2 ABG Hemoglobin ABG Oxyhemoglobin ABG Sodium ABG Potassium ABG Chloride ABG Glucose Carboxyhemoglobin Sodium Potassium Chloride BUN Creatinine Glucose POC Glucose 148 H 135 H 142 H Lactic Acid Calcium Phosphorus AST ALT Troponin T C-Reactive Protein Albumin HDL Cholesterol Arterial Blood Glucose Arterial Blood Ionized Calcium Urine WBC (Auto) 10/06/20 10/06/20 10/06/20 04:37 05:35 10:55 WBC RBC Hgb Hct MCV MCH RDW Plt Count Lymph % (Auto) [place] % (Auto) Lymph # (Auto) [place] # (Auto) Seg Neutrophils % Seg Neuts % (Manual) Monocytes % (Manual) Eosinophils % (Manual) Seg Neutrophils # Seg Neutrophils # Man Lymphocytes # (Manual) Monocytes # (Manual) Eosinophils # (Manual) APTT Heparin Anti-Xa Level ABG pH POC ABG pCO2 POC ABG pO2 ABG Hemoglobin ABG Oxyhemoglobin ABG Sodium ABG Potassium ABG Chloride ABG Glucose Carboxyhemoglobin Sodium 136 L Potassium Chloride BUN Creatinine Glucose 184 H POC Glucose 151 H 163 H Lactic Acid Calcium Phosphorus AST 66 H ALT Troponin T C-Reactive Protein Albumin 3.3 L HDL Cholesterol Arterial Blood Glucose Arterial Blood Ionized Calcium Urine WBC (Auto) 10/06/20 10/06/20 10/07/20 16:41 23:31 05:24 WBC RBC Hgb Hct MCV MCH RDW Plt Count Lymph % (Auto) [place] % (Auto) Lymph # (Auto) [place] # (Auto) Seg Neutrophils % Seg Neuts % (Manual) Monocytes % (Manual) Eosinophils % (Manual) Seg Neutrophils # Seg Neutrophils # Man Lymphocytes # (Manual) Monocytes # (Manual) Eosinophils # (Manual) APTT Heparin Anti-Xa Level ABG pH POC ABG pCO2 POC ABG pO2 ABG Hemoglobin ABG Oxyhemoglobin ABG Sodium ABG Potassium ABG Chloride ABG Glucose Carboxyhemoglobin Sodium Potassium Chloride BUN Creatinine Glucose POC Glucose 156 H 190 H 194 H Lactic Acid Calcium Phosphorus AST ALT Troponin T C-Reactive Protein Albumin HDL Cholesterol Arterial Blood Glucose Arterial Blood Ionized Calcium Urine WBC (Auto) 10/07/20 10/07/20 10/07/20 11:48 17:50 18:12 WBC 15.7 H RBC Hgb 9.2 L Hct 30.1 L MCV MCH 25 L RDW 24.1 H Plt Count 514 H Lymph % (Auto) [place] % (Auto) Lymph # (Auto) [place] # (Auto) Seg Neutrophils % Seg Neuts % (Manual) 71.0 H Monocytes % (Manual) Eosinophils % (Manual) 5.0 H Seg Neutrophils # Seg Neutrophils # Man 11.1 H Lymphocytes # (Manual) Monocytes # (Manual) 1.1 H Eosinophils # (Manual) 0.8 H APTT Heparin Anti-Xa Level ABG pH POC ABG pCO2 POC ABG pO2 ABG Hemoglobin ABG Oxyhemoglobin ABG Sodium ABG Potassium ABG Chloride ABG Glucose Carboxyhemoglobin Sodium Potassium Chloride BUN Creatinine Glucose POC Glucose 203 H 191 H Lactic Acid Calcium Phosphorus AST ALT Troponin T C-Reactive Protein Albumin HDL Cholesterol Arterial Blood Glucose Arterial Blood Ionized Calcium Urine WBC (Auto) 10/07/20 10/08/20 10/08/20 23:40 04:22 04:22 WBC 15.2 H RBC Hgb 9.6 L Hct MCV MCH 24 L RDW 23.3 H Plt Count 517 H Lymph % (Auto) [place] % (Auto) Lymph # (Auto) [place] # (Auto) Seg Neutrophils % Seg Neuts % (Manual) Monocytes % (Manual) Eosinophils % (Manual) Seg Neutrophils # Seg Neutrophils # Man Lymphocytes # (Manual) Monocytes # (Manual) Eosinophils # (Manual) APTT Heparin Anti-Xa Level ABG pH POC ABG pCO2 POC ABG pO2 ABG Hemoglobin ABG Oxyhemoglobin ABG Sodium ABG Potassium ABG Chloride ABG Glucose Carboxyhemoglobin Sodium Potassium Chloride BUN 18 H Creatinine Glucose 150 H POC Glucose 191 H Lactic Acid Calcium 10.3 H Phosphorus AST 63 H ALT Troponin T C-Reactive Protein Albumin HDL Cholesterol Arterial Blood Glucose Arterial Blood Ionized Calcium Urine WBC (Auto) 10/08/20 10/08/20 10/08/20 05:41 11:53 16:17 WBC RBC Hgb Hct MCV MCH RDW Plt Count Lymph % (Auto) [place] % (Auto) Lymph # (Auto) [place] # (Auto) Seg Neutrophils % Seg Neuts % (Manual) Monocytes % (Manual) Eosinophils % (Manual) Seg Neutrophils # Seg Neutrophils # Man Lymphocytes # (Manual) Monocytes # (Manual) Eosinophils # (Manual) APTT Heparin Anti-Xa Level ABG pH POC ABG pCO2 POC ABG pO2 ABG Hemoglobin ABG Oxyhemoglobin ABG Sodium ABG Potassium ABG Chloride ABG Glucose Carboxyhemoglobin Sodium Potassium Chloride BUN Creatinine Glucose POC Glucose 125 H 116 H 141 H Lactic Acid Calcium Phosphorus AST ALT Troponin T C-Reactive Protein Albumin HDL Cholesterol Arterial Blood Glucose Arterial Blood Ionized Calcium Urine WBC (Auto) 10/08/20 10/09/20 10/09/20 23:24 04:07 04:07 WBC 14.2 H RBC Hgb 9.6 L Hct MCV MCH 24 L RDW 23.5 H Plt Count 543 H Lymph % (Auto) [place] % (Auto) 10.4 H Lymph # (Auto) [place] # (Auto) 1.5 H Seg Neutrophils % 70.9 H Seg Neuts % (Manual) Monocytes % (Manual) Eosinophils % (Manual) Seg Neutrophils # 10.1 H Seg Neutrophils # Man Lymphocytes # (Manual) Monocytes # (Manual) Eosinophils # (Manual) APTT Heparin Anti-Xa Level ABG pH POC ABG pCO2 POC ABG pO2 ABG Hemoglobin ABG Oxyhemoglobin ABG Sodium ABG Potassium ABG Chloride ABG Glucose Carboxyhemoglobin Sodium Potassium Chloride BUN 18 H Creatinine Glucose 152 H POC Glucose 114 H Lactic Acid Calcium Phosphorus AST ALT Troponin T C-Reactive Protein Albumin HDL Cholesterol Arterial Blood Glucose Arterial Blood Ionized Calcium Urine WBC (Auto) 10/09/20 10/09/20 10/10/20 11:51 17:35 00:15 WBC RBC Hgb Hct MCV MCH RDW Plt Count Lymph % (Auto) [place] % (Auto) Lymph # (Auto) [place] # (Auto) Seg Neutrophils % Seg Neuts % (Manual) Monocytes % (Manual) Eosinophils % (Manual) Seg Neutrophils # Seg Neutrophils # Man Lymphocytes # (Manual) Monocytes # (Manual) Eosinophils # (Manual) APTT Heparin Anti-Xa Level ABG pH POC ABG pCO2 POC ABG pO2 ABG Hemoglobin ABG Oxyhemoglobin ABG Sodium ABG Potassium ABG Chloride ABG Glucose Carboxyhemoglobin Sodium Potassium Chloride BUN Creatinine Glucose POC Glucose 134 H 139 H 184 H Lactic Acid Calcium Phosphorus AST ALT Troponin T C-Reactive Protein Albumin HDL Cholesterol Arterial Blood Glucose Arterial Blood Ionized Calcium Urine WBC (Auto) 10/10/20 10/10/20 10/10/20 03:42 03:42 05:45 WBC 14.5 H RBC 3.62 L Hgb 9.1 L Hct 29.2 L MCV MCH 25 L RDW 24.2 H Plt Count 540 H Lymph % (Auto) [place] % (Auto) 13.6 H Lymph # (Auto) [place] # (Auto) 2.0 H Seg Neutrophils % Seg Neuts % (Manual) Monocytes % (Manual) Eosinophils % (Manual) Seg Neutrophils # 9.3 H Seg Neutrophils # Man Lymphocytes # (Manual) Monocytes # (Manual) Eosinophils # (Manual) APTT Heparin Anti-Xa Level ABG pH POC ABG pCO2 POC ABG pO2 ABG Hemoglobin ABG Oxyhemoglobin ABG Sodium ABG Potassium ABG Chloride ABG Glucose Carboxyhemoglobin Sodium 132 L Potassium Chloride 97.4 L BUN 23 H Creatinine Glucose 190 H POC Glucose 213 H Lactic Acid Calcium Phosphorus AST ALT Troponin T C-Reactive Protein Albumin HDL Cholesterol Arterial Blood Glucose Arterial Blood Ionized Calcium Urine WBC (Auto) 10/10/20 10/10/20 10/10/20 12:05 17:51 23:37 WBC RBC Hgb Hct MCV MCH RDW Plt Count Lymph % (Auto) [place] % (Auto) Lymph # (Auto) [place] # (Auto) Seg Neutrophils % Seg Neuts % (Manual) Monocytes % (Manual) Eosinophils % (Manual) Seg Neutrophils # Seg Neutrophils # Man Lymphocytes # (Manual) Monocytes # (Manual) Eosinophils # (Manual) APTT Heparin Anti-Xa Level ABG pH POC ABG pCO2 POC ABG pO2 ABG Hemoglobin ABG Oxyhemoglobin ABG Sodium ABG Potassium ABG Chloride ABG Glucose Carboxyhemoglobin Sodium Potassium Chloride BUN Creatinine Glucose POC Glucose 199 H 170 H 225 H Lactic Acid Calcium Phosphorus AST ALT Troponin T C-Reactive Protein Albumin HDL Cholesterol Arterial Blood Glucose Arterial Blood Ionized Calcium Urine WBC (Auto) 10/11/20 10/11/20 10/11/20 05:02 11:45 17:08 WBC RBC Hgb Hct MCV MCH RDW Plt Count Lymph % (Auto) [place] % (Auto) Lymph # (Auto) [place] # (Auto) Seg Neutrophils % Seg Neuts % (Manual) Monocytes % (Manual) Eosinophils % (Manual) Seg Neutrophils # Seg Neutrophils # Man Lymphocytes # (Manual) Monocytes # (Manual) Eosinophils # (Manual) APTT Heparin Anti-Xa Level ABG pH POC ABG pCO2 POC ABG pO2 ABG Hemoglobin ABG Oxyhemoglobin ABG Sodium ABG Potassium ABG Chloride ABG Glucose Carboxyhemoglobin Sodium Potassium Chloride BUN Creatinine Glucose POC Glucose 190 H 209 H 177 H Lactic Acid Calcium Phosphorus AST ALT Troponin T C-Reactive Protein Albumin HDL Cholesterol Arterial Blood Glucose Arterial Blood Ionized Calcium Urine WBC (Auto) 10/12/20 10/12/20 10/12/20 00:57 05:18 05:18 WBC 24.0 H RBC Hgb 9.4 L Hct 30.0 L MCV MCH 26 L RDW 23.9 H Plt Count 467 H Lymph % (Auto) [place] % (Auto) Lymph # (Auto) [place] # (Auto) Seg Neutrophils % Seg Neuts % (Manual) Monocytes % (Manual) 8.0 H Eosinophils % (Manual) Seg Neutrophils # Seg Neutrophils # Man 0.0 L Lymphocytes # (Manual) 0.0 L Monocytes # (Manual) Eosinophils # (Manual) APTT Heparin Anti-Xa Level ABG pH POC ABG pCO2 POC ABG pO2 ABG Hemoglobin ABG Oxyhemoglobin ABG Sodium ABG Potassium ABG Chloride ABG Glucose Carboxyhemoglobin Sodium Potassium 5.1 H D Chloride BUN 20 H Creatinine Glucose 183 H POC Glucose 176 H Lactic Acid Calcium Phosphorus AST ALT Troponin T C-Reactive Protein Albumin HDL Cholesterol Arterial Blood Glucose Arterial Blood Ionized Calcium Urine WBC (Auto) 10/12/20 10/12/20 10/12/20 05:52 11:20 17:37 WBC RBC Hgb Hct MCV MCH RDW Plt Count Lymph % (Auto) [place] % (Auto) Lymph # (Auto) [place] # (Auto) Seg Neutrophils % Seg Neuts % (Manual) Monocytes % (Manual) Eosinophils % (Manual) Seg Neutrophils # Seg Neutrophils # Man Lymphocytes # (Manual) Monocytes # (Manual) Eosinophils # (Manual) APTT Heparin Anti-Xa Level ABG pH POC ABG pCO2 POC ABG pO2 ABG Hemoglobin ABG Oxyhemoglobin ABG Sodium ABG Potassium ABG Chloride ABG Glucose Carboxyhemoglobin Sodium Potassium Chloride BUN Creatinine Glucose POC Glucose 167 H 179 H 150 H Lactic Acid Calcium Phosphorus AST ALT Troponin T C-Reactive Protein Albumin HDL Cholesterol Arterial Blood Glucose Arterial Blood Ionized Calcium Urine WBC (Auto) 10/13/20 10/13/20 10/13/20 00:06 05:31 11:09 WBC 14.3 H RBC 3.42 L Hgb 8.8 L Hct 27.8 L MCV MCH 26 L RDW 24.4 H Plt Count Lymph % (Auto) [place] % (Auto) Lymph # (Auto) [place] # (Auto) Seg Neutrophils % Seg Neuts % (Manual) Monocytes % (Manual) Eosinophils % (Manual) Seg Neutrophils # Seg Neutrophils # Man Lymphocytes # (Manual) Monocytes # (Manual) Eosinophils # (Manual) APTT Heparin Anti-Xa Level ABG pH POC ABG pCO2 POC ABG pO2 ABG Hemoglobin ABG Oxyhemoglobin ABG Sodium ABG Potassium ABG Chloride ABG Glucose Carboxyhemoglobin Sodium Potassium Chloride BUN Creatinine Glucose POC Glucose 181 H 178 H Lactic Acid Calcium Phosphorus AST ALT Troponin T C-Reactive Protein Albumin HDL Cholesterol Arterial Blood Glucose Arterial Blood Ionized Calcium Urine WBC (Auto) 10/13/20 10/13/20 11:09 11:28 WBC RBC Hgb Hct MCV MCH RDW Plt Count Lymph % (Auto) [place] % (Auto) Lymph # (Auto) [place] # (Auto) Seg Neutrophils % Seg Neuts % (Manual) Monocytes % (Manual) Eosinophils % (Manual) Seg Neutrophils # Seg Neutrophils # Man Lymphocytes # (Manual) Monocytes # (Manual) Eosinophils # (Manual) APTT Heparin Anti-Xa Level ABG pH POC ABG pCO2 POC ABG pO2 ABG Hemoglobin ABG Oxyhemoglobin ABG Sodium ABG Potassium ABG Chloride ABG Glucose Carboxyhemoglobin Sodium Potassium Chloride BUN 25 H Creatinine Glucose 207 H POC Glucose 209 H Lactic Acid Calcium 10.3 H Phosphorus AST ALT Troponin T C-Reactive Protein Albumin HDL Cholesterol Arterial Blood Glucose Arterial Blood Ionized Calcium Urine WBC (Auto) Allied health notes reviewed: nursing
[2020-10-13] MEDS ORDERED: SODIUM CHLORIDE 0.9% 500 ML 500 ML IV ONE ×2 (17:45)
[2020-10-13] MEDS: SENNOSIDES 8.6 MG TAB PO SCH (22:24)
[2020-10-14] MEDS ORDERED: LACTATED RINGERS 1,000 ML ONE (02:24)
[2020-10-14] MEDS ORDERED: LACTATED RINGERS 1,000 ML IV SCH (05:00)
[2020-10-14] MEDS: carvediloL 3.125 MG TAB PO SCH ×3 (06:13→21:44)
[2020-10-14] MEDS ORDERED: MIDODRINE 5 MG TAB PO SCH (08:00)
--- NOTE | 2020-10-14 08:00 | Progress Note ---
Assessment and Plan Cardiac arrest with return of spontaneous circulation. Acute respiratory failure, on mechanical ventilatory support. s/p trach adn PEG Acute toxic metabolic encephalopathy. Possible anoxic encephalopathy. Obesity. History of obesity hypoventilation syndrome. Leukocytosis. Likely aspiration pneumonia, bilateral. Anemia that is microcytic. Lactic acidosis. Elevated serum transaminases. Non-ST elevation myocardial infarction Hypernatremia, resolved Trach care, airway clearance and secretion management - Continue to monitor hemodynamics closely while she is on heart failure measures - VTE prophylaxis - continue free water flushes. Monitor sodium levels - continue to titrate supplemental oxygen to keep SpO2 89-92% - VAP bundle addressed, aspiration precautions HOB >40 - continue lung protective strategies - continue bronchodilators with pulmonary hygiene per RT - wean per pulmonary driven protocols otherwise - continue Daily SBT assessment as tolerated - continue accuchecks with glycemic control per SSI (While critically ill target blood glucose of 140-180 mg/dL; avoid hypoglycemia) - sedation prn for target RASS 0 to -1 - avoid nephrotoxins, renally dose all medications - continue to avoid benzodiazepines, reduce the possibility of delirium - prn analgesia per CPOT score - Maintenance of sleep-wake cycle, avoid delirium - continue enteral nutritional support at goal rate as tolerated - Stress ulcer prophylaxis - PT/OT/ROM exercises - continue mobility, off loading , frequent turning per facility protocols for pressure ulcer prevention - continue other care per attending / other consultants - discharge planning ongoing concurrently CONDITION: CRITICAL PROGNOSIS: GUARDED CODE STATUS: FULL CODE Subjective Date of service: 10/14/20 Principal diagnosis: Cardiac arrest; Ac. respiratory failure; Anoxic encephalopathy; PNA; NSTEMI Interval history: Patient is seen today for: Cardiac arrest with ROSC; Acute respiratory failure; Anoxic encephalopathy; Obesity; OHS; Aspiration pneumonia; NSTEMI Seen and examined at bedside; 24hour events reviewed; nursing and respiratory ca re staff consulted; no adverse overnight events reported to me; resting in bed; remains on MVS, s/p trach, s/p PEG . Tolerating PSV trials, mental status changes persist Objective Vital Signs - 12hr 10/13/20 10/13/20 10/13/20 20:17 20:30 21:00 Temperature 99.7 F H Pulse Rate 101 H 100 H Respiratory 16 19 Rate Blood Pressure 91/41 97/49 O2 Sat by Pulse 96 99 Oximetry 10/13/20 10/13/20 10/13/20 21:30 22:00 22:30 Temperature Pulse Rate 99 H 102 H 103 H Respiratory 15 15 10 L Rate Blood Pressure 94/43 90/56 96/54 O2 Sat by Pulse 95 99 98 Oximetry 10/13/20 10/13/20 10/13/20 22:52 23:00 23:30 Temperature Pulse Rate 105 H 104 H 105 H Respiratory 19 14 17 Rate Blood Pressure 96/54 104/53 114/49 O2 Sat by Pulse 100 100 100 Oximetry 10/13/20 10/14/20 10/14/20 23:37 00:00 00:27 Temperature 99.5 F Pulse Rate 104 H 106 H Respiratory 13 Rate Blood Pressure 104/53 114/45 O2 Sat by Pulse 100 100 Oximetry 10/14/20 10/14/20 10/14/20 00:30 01:00 01:30 Temperature Pulse Rate 103 H 103 H 104 H Respiratory 12 9 L 11 L Rate Blood Pressure 108/54 106/53 116/48 O2 Sat by Pulse 100 100 100 Oximetry 10/14/20 10/14/20 10/14/20 02:00 02:30 03:32 Temperature Pulse Rate 106 H 105 H 104 H Respiratory 8 L 10 L Rate Blood Pressure 107/53 113/51 107/57 O2 Sat by Pulse 100 100 99 Oximetry 10/14/20 03:53 Temperature 99.1 F Pulse Rate Respiratory Rate Blood Pressure O2 Sat by Pulse Oximetry Constitutional: no acute distress, other (middle aged obese female with mildly increased respiratory effort at rest on MVS) Eyes: non-icteric ENT: oropharynx moist, other (+ midline tracheostomy) Neck: supple, no lymphadenopathy, no JVD Effort: mildly labored Ascultation: Bilateral: rhonchi Percussion: Bilateral: not dull Cardiovascular: regular rate and rhythm, other (S1,S2) Gastrointestinal: normoactive bowel sounds, soft, non-tender, non-distended Integumentary: normal Extremities: no cyanosis, no edema, pulses normal, no ischemia or petechiae Neurologic: pupils equal and round, unable to assess Psychiatric: other (unable to assess re: AMS) CBC and BMP: 10/17/20 07:56 10/17/20 07:56 ABG, PT/INR, D-dimer: ABG ABG pH 7.424 (7.320-7.450) 10/01/20 04:12 POC ABG pCO2 41.6 mmHg (32.0-48.0) 10/01/20 04:12 POC ABG pO2 73.0 mmHg (83-108) L 10/01/20 04:12 POC ABG HCO3 26.6 10/01/20 04:12 ABG O2 Saturation 94.3 (0-100) 10/01/20 04:12 PT/INR, D-dimer PT 13.7 Sec. (12.2-14.9) 09/25/20 18:15 INR 1.00 (0.87-1.13) 09/25/20 18:15 Abnormal lab findings: Abnormal Labs 09/25/20 09/25/20 09/25/20 17:19 17:21 18:15 WBC 13.8 H RBC Hgb 9.9 L Hct MCV 76 L MCH 23 L RDW 17.9 H Plt Count Lymph % (Auto) [place] % (Auto) Lymph # (Auto) [place] # (Auto) Seg Neutrophils % 78.6 H Seg Neuts % (Manual) Monocytes % (Manual) Eosinophils % (Manual) Seg Neutrophils # 10.8 H Seg Neutrophils # Man Lymphocytes # (Manual) Monocytes # (Manual) Eosinophils # (Manual) APTT Heparin Anti-Xa Level ABG pH POC ABG pCO2 26.2 L POC ABG pO2 554.5 H ABG Hemoglobin 9.0 L ABG Oxyhemoglobin 99.0 H ABG Sodium 134.5 L ABG Potassium ABG Chloride ABG Glucose 220 H Carboxyhemoglobin Sodium Potassium Chloride BUN Creatinine Glucose POC Glucose Lactic Acid Calcium Phosphorus AST ALT Troponin T C-Reactive Protein Albumin HDL Cholesterol Arterial Blood Glucose 220 H Arterial Blood Ionized Calcium 4.2 L Urine WBC (Auto) 14.0 H 09/25/20 09/25/20 09/25/20 18:15 18:15 18:15 WBC RBC Hgb Hct MCV MCH RDW Plt Count Lymph % (Auto) [place] % (Auto) Lymph # (Auto) [place] # (Auto) Seg Neutrophils % Seg Neuts % (Manual) Monocytes % (Manual) Eosinophils % (Manual) Seg Neutrophils # Seg Neutrophils # Man Lymphocytes # (Manual) Monocytes # (Manual) Eosinophils # (Manual) APTT 21.1 L Heparin Anti-Xa Level ABG pH POC ABG pCO2 POC ABG pO2 ABG Hemoglobin ABG Oxyhemoglobin ABG Sodium ABG Potassium ABG Chloride ABG Glucose Carboxyhemoglobin Sodium Potassium Chloride BUN Creatinine Glucose 113 H POC Glucose Lactic Acid 2.60 H* Calcium Phosphorus AST 162 H ALT 131 H Troponin T 0.096 H C-Reactive Protein Albumin HDL Cholesterol Arterial Blood Glucose Arterial Blood Ionized Calcium Urine WBC (Auto) 09/25/20 09/25/20 09/26/20 23:13 23:13 03:15 WBC RBC Hgb Hct MCV MCH RDW Plt Count Lymph % (Auto) [place] % (Auto) Lymph # (Auto) [place] # (Auto) Seg Neutrophils % Seg Neuts % (Manual) Monocytes % (Manual) Eosinophils % (Manual) Seg Neutrophils # Seg Neutrophils # Man Lymphocytes # (Manual) Monocytes # (Manual) Eosinophils # (Manual) APTT Heparin Anti-Xa Level ABG pH 7.451 H POC ABG pCO2 27.1 L POC ABG pO2 ABG Hemoglobin 10.4 L ABG Oxyhemoglobin ABG Sodium 135.2 L ABG Potassium ABG Chloride 108.0 H ABG Glucose 137 H Carboxyhemoglobin Sodium Potassium Chloride BUN Creatinine Glucose POC Glucose Lactic Acid 2.90 H* Calcium Phosphorus AST ALT Troponin T 0.170 H* D C-Reactive Protein Albumin HDL Cholesterol 60 H Arterial Blood Glucose 137 H Arterial Blood Ionized Calcium 4.2 L Urine WBC (Auto) 09/26/20 09/26/20 09/26/20 05:09 05:09 05:09 WBC 15.8 H RBC Hgb 10.0 L Hct MCV 77 L MCH 24 L RDW 17.8 H Plt Count Lymph % (Auto) 7.2 L [place] % (Auto) Lymph # (Auto) 1.1 L [place] # (Auto) 1.0 H Seg Neutrophils % 86.1 H Seg Neuts % (Manual) Monocytes % (Manual) Eosinophils % (Manual) Seg Neutrophils # 13.6 H Seg Neutrophils # Man Lymphocytes # (Manual) Monocytes # (Manual) Eosinophils # (Manual) APTT Heparin Anti-Xa Level ABG pH POC ABG pCO2 POC ABG pO2 ABG Hemoglobin ABG Oxyhemoglobin ABG Sodium ABG Potassium ABG Chloride ABG Glucose Carboxyhemoglobin Sodium Potassium Chloride BUN Creatinine Glucose 114 H POC Glucose Lactic Acid 2.40 H* Calcium 8.1 L Phosphorus AST 112 H ALT 103 H Troponin T C-Reactive Protein Albumin 3.8 L HDL Cholesterol Arterial Blood Glucose Arterial Blood Ionized Calcium Urine WBC (Auto) 09/26/20 09/27/20 09/27/20 15:45 03:33 04:41 WBC RBC Hgb 9.0 L Hct 28.6 L MCV MCH RDW Plt Count Lymph % (Auto) [place] % (Auto) Lymph # (Auto) [place] # (Auto) Seg Neutrophils % Seg Neuts % (Manual) Monocytes % (Manual) Eosinophils % (Manual) Seg Neutrophils # Seg Neutrophils # Man Lymphocytes # (Manual) Monocytes # (Manual) Eosinophils # (Manual) APTT Heparin Anti-Xa Level ABG pH POC ABG pCO2 POC ABG pO2 141.6 H ABG Hemoglobin 9.3 L ABG Oxyhemoglobin ABG Sodium ABG Potassium 3.2 L ABG Chloride 108.0 H ABG Glucose 118 H Carboxyhemoglobin Sodium Potassium Chloride BUN Creatinine Glucose POC Glucose Lactic Acid Calcium Phosphorus 2.20 L AST ALT Troponin T C-Reactive Protein 4.30 H Albumin HDL Cholesterol Arterial Blood Glucose 118 H Arterial Blood Ionized Calcium 4.2 L Urine WBC (Auto) 09/27/20 09/27/20 09/28/20 04:41 22:53 04:00 WBC RBC Hgb Hct MCV MCH RDW Plt Count Lymph % (Auto) [place] % (Auto) Lymph # (Auto) [place] # (Auto) Seg Neutrophils % Seg Neuts % (Manual) Monocytes % (Manual) Eosinophils % (Manual) Seg Neutrophils # Seg Neutrophils # Man Lymphocytes # (Manual) Monocytes # (Manual) Eosinophils # (Manual) APTT Heparin Anti-Xa Level 0.75 H ABG pH 7.467 H POC ABG pCO2 POC ABG pO2 78.9 L ABG Hemoglobin 9.8 L ABG Oxyhemoglobin ABG Sodium ABG Potassium ABG Chloride ABG Glucose 141 H Carboxyhemoglobin Sodium Potassium Chloride BUN Creatinine Glucose POC Glucose 109 H Lactic Acid Calcium Phosphorus AST ALT Troponin T C-Reactive Protein Albumin HDL Cholesterol Arterial Blood Glucose 141 H Arterial Blood Ionized Calcium Urine WBC (Auto) 09/28/20 09/28/20 09/28/20 05:02 05:02 17:42 WBC 11.9 H RBC Hgb 9.3 L Hct 29.5 L MCV 76 L MCH 24 L RDW 19.4 H Plt Count Lymph % (Auto) [place] % (Auto) 11.1 H Lymph # (Auto) [place] # (Auto) 1.3 H Seg Neutrophils % 72.5 H Seg Neuts % (Manual) Monocytes % (Manual) Eosinophils % (Manual) Seg Neutrophils # 8.6 H Seg Neutrophils # Man Lymphocytes # (Manual) Monocytes # (Manual) Eosinophils # (Manual) APTT Heparin Anti-Xa Level ABG pH POC ABG pCO2 POC ABG pO2 ABG Hemoglobin ABG Oxyhemoglobin ABG Sodium ABG Potassium ABG Chloride ABG Glucose Carboxyhemoglobin Sodium Potassium 3.4 L Chloride BUN Creatinine Glucose 126 H POC Glucose 69 L Lactic Acid Calcium Phosphorus AST 129 H ALT 60 H Troponin T C-Reactive Protein Albumin 3.7 L HDL Cholesterol Arterial Blood Glucose Arterial Blood Ionized Calcium Urine WBC (Auto) 09/29/20 09/29/20 09/29/20 04:00 05:53 08:39 WBC RBC Hgb 10.0 L Hct MCV MCH RDW Plt Count Lymph % (Auto) [place] % (Auto) Lymph # (Auto) [place] # (Auto) Seg Neutrophils % Seg Neuts % (Manual) Monocytes % (Manual) Eosinophils % (Manual) Seg Neutrophils # Seg Neutrophils # Man Lymphocytes # (Manual) Monocytes # (Manual) Eosinophils # (Manual) APTT Heparin Anti-Xa Level ABG pH POC ABG pCO2 POC ABG pO2 81.1 L ABG Hemoglobin 11.0 L ABG Oxyhemoglobin ABG Sodium ABG Potassium ABG Chloride 110.0 H ABG Glucose 129 H Carboxyhemoglobin Sodium Potassium Chloride BUN Creatinine Glucose POC Glucose 58 L Lactic Acid Calcium Phosphorus AST ALT Troponin T C-Reactive Protein Albumin HDL Cholesterol Arterial Blood Glucose 129 H Arterial Blood Ionized Calcium Urine WBC (Auto) 09/30/20 09/30/20 09/30/20 00:10 10:45 15:05 WBC 12.5 H RBC Hgb 9.9 L Hct MCV 78 L MCH 24 L RDW 21.0 H Plt Count Lymph % (Auto) [place] % (Auto) 13.5 H Lymph # (Auto) [place] # (Auto) 1.7 H Seg Neutrophils % Seg Neuts % (Manual) Monocytes % (Manual) Eosinophils % (Manual) Seg Neutrophils # 8.1 H Seg Neutrophils # Man Lymphocytes # (Manual) Monocytes # (Manual) Eosinophils # (Manual) APTT Heparin Anti-Xa Level ABG pH 7.469 H POC ABG pCO2 POC ABG pO2 ABG Hemoglobin 10.4 L ABG Oxyhemoglobin ABG Sodium 146.2 H ABG Potassium ABG Chloride 109.0 H ABG Glucose 155 H Carboxyhemoglobin Sodium Potassium Chloride BUN Creatinine Glucose POC Glucose 131 H Lactic Acid Calcium Phosphorus AST ALT Troponin T C-Reactive Protein Albumin HDL Cholesterol Arterial Blood Glucose 155 H Arterial Blood Ionized Calcium Urine WBC (Auto) 09/30/20 09/30/20 10/01/20 15:05 17:37 00:29 WBC RBC Hgb Hct MCV MCH RDW Plt Count Lymph % (Auto) [place] % (Auto) Lymph # (Auto) [place] # (Auto) Seg Neutrophils % Seg Neuts % (Manual) Monocytes % (Manual) Eosinophils % (Manual) Seg Neutrophils # Seg Neutrophils # Man Lymphocytes # (Manual) Monocytes # (Manual) Eosinophils # (Manual) APTT Heparin Anti-Xa Level ABG pH POC ABG pCO2 POC ABG pO2 ABG Hemoglobin ABG Oxyhemoglobin ABG Sodium ABG Potassium ABG Chloride ABG Glucose Carboxyhemoglobin Sodium Potassium Chloride 109.1 H BUN 18 H Creatinine 1.4 H Glucose 122 H POC Glucose 127 H 119 H Lactic Acid Calcium Phosphorus 2.00 L AST ALT Troponin T C-Reactive Protein Albumin HDL Cholesterol Arterial Blood Glucose Arterial Blood Ionized Calcium Urine WBC (Auto) 10/01/20 10/01/20 10/01/20 04:12 05:56 05:56 WBC 14.2 H RBC Hgb 9.7 L Hct MCV 78 L MCH 23 L RDW 21.1 H Plt Count Lymph % (Auto) [place] % (Auto) Lymph # (Auto) [place] # (Auto) Seg Neutrophils % Seg Neuts % (Manual) Monocytes % (Manual) Eosinophils % (Manual) Seg Neutrophils # Seg Neutrophils # Man Lymphocytes # (Manual) Monocytes # (Manual) Eosinophils # (Manual) APTT Heparin Anti-Xa Level ABG pH POC ABG pCO2 POC ABG pO2 73.0 L ABG Hemoglobin 10.0 L ABG Oxyhemoglobin 93.7 L ABG Sodium 146.4 H ABG Potassium ABG Chloride 110.0 H ABG Glucose 124 H Carboxyhemoglobin 0.3 L Sodium 147 H Potassium Chloride 109.6 H BUN Creatinine Glucose 109 H POC Glucose Lactic Acid Calcium Phosphorus AST ALT Troponin T C-Reactive Protein Albumin HDL Cholesterol Arterial Blood Glucose 124 H Arterial Blood Ionized Calcium Urine WBC (Auto) 10/01/20 10/01/20 10/02/20 19:21 23:17 05:27 WBC RBC Hgb Hct MCV MCH RDW Plt Count Lymph % (Auto) [place] % (Auto) Lymph # (Auto) [place] # (Auto) Seg Neutrophils % Seg Neuts % (Manual) Monocytes % (Manual) Eosinophils % (Manual) Seg Neutrophils # Seg Neutrophils # Man Lymphocytes # (Manual) Monocytes # (Manual) Eosinophils # (Manual) APTT Heparin Anti-Xa Level ABG pH POC ABG pCO2 POC ABG pO2 ABG Hemoglobin ABG Oxyhemoglobin ABG Sodium ABG Potassium ABG Chloride ABG Glucose Carboxyhemoglobin Sodium Potassium Chloride BUN Creatinine Glucose POC Glucose 126 H 160 H 121 H Lactic Acid Calcium Phosphorus AST ALT Troponin T C-Reactive Protein Albumin HDL Cholesterol Arterial Blood Glucose Arterial Blood Ionized Calcium Urine WBC (Auto) 10/02/20 10/02/20 10/02/20 06:48 06:48 11:51 WBC 14.2 H RBC Hgb 9.6 L Hct MCV MCH 25 L RDW 21.7 H Plt Count Lymph % (Auto) [place] % (Auto) Lymph # (Auto) [place] # (Auto) Seg Neutrophils % Seg Neuts % (Manual) Monocytes % (Manual) Eosinophils % (Manual) Seg Neutrophils # Seg Neutrophils # Man Lymphocytes # (Manual) Monocytes # (Manual) Eosinophils # (Manual) APTT Heparin Anti-Xa Level ABG pH POC ABG pCO2 POC ABG pO2 ABG Hemoglobin ABG Oxyhemoglobin ABG Sodium ABG Potassium ABG Chloride ABG Glucose Carboxyhemoglobin Sodium 147 H Potassium Chloride 110.4 H BUN Creatinine Glucose 134 H POC Glucose 121 H Lactic Acid Calcium Phosphorus 2.20 L AST ALT Troponin T C-Reactive Protein Albumin HDL Cholesterol Arterial Blood Glucose Arterial Blood Ionized Calcium Urine WBC (Auto) 10/02/20 10/03/20 10/03/20 17:19 00:35 07:24 WBC 12.9 H RBC Hgb 8.9 L Hct 29.6 L MCV MCH 24 L RDW 21.9 H Plt Count Lymph % (Auto) [place] % (Auto) Lymph # (Auto) [place] # (Auto) Seg Neutrophils % Seg Neuts % (Manual) Monocytes % (Manual) Eosinophils % (Manual) Seg Neutrophils # Seg Neutrophils # Man Lymphocytes # (Manual) Monocytes # (Manual) Eosinophils # (Manual) APTT Heparin Anti-Xa Level ABG pH POC ABG pCO2 POC ABG pO2 ABG Hemoglobin ABG Oxyhemoglobin ABG Sodium ABG Potassium ABG Chloride ABG Glucose Carboxyhemoglobin Sodium Potassium Chloride BUN Creatinine Glucose POC Glucose 107 H 112 H Lactic Acid Calcium Phosphorus AST ALT Troponin T C-Reactive Protein Albumin HDL Cholesterol Arterial Blood Glucose Arterial Blood Ionized Calcium Urine WBC (Auto) 10/03/20 10/03/20 10/03/20 07:24 17:27 20:19 WBC RBC Hgb Hct MCV MCH RDW Plt Count Lymph % (Auto) [place] % (Auto) Lymph # (Auto) [place] # (Auto) Seg Neutrophils % Seg Neuts % (Manual) Monocytes % (Manual) Eosinophils % (Manual) Seg Neutrophils # Seg Neutrophils # Man Lymphocytes # (Manual) Monocytes # (Manual) Eosinophils # (Manual) APTT Heparin Anti-Xa Level 0.18 L ABG pH POC ABG pCO2 POC ABG pO2 ABG Hemoglobin ABG Oxyhemoglobin ABG Sodium ABG Potassium ABG Chloride ABG Glucose Carboxyhemoglobin Sodium 147 H Potassium Chloride 110.4 H BUN Creatinine Glucose 128 H POC Glucose 136 H Lactic Acid Calcium Phosphorus AST ALT Troponin T C-Reactive Protein Albumin HDL Cholesterol Arterial Blood Glucose Arterial Blood Ionized Calcium Urine WBC (Auto) 10/03/20 10/04/20 10/04/20 23:34 04:07 06:12 WBC RBC Hgb Hct MCV MCH RDW Plt Count Lymph % (Auto) [place] % (Auto) Lymph # (Auto) [place] # (Auto) Seg Neutrophils % Seg Neuts % (Manual) Monocytes % (Manual) Eosinophils % (Manual) Seg Neutrophils # Seg Neutrophils # Man Lymphocytes # (Manual) Monocytes # (Manual) Eosinophils # (Manual) APTT Heparin Anti-Xa Level 0.25 L ABG pH POC ABG pCO2 POC ABG pO2 ABG Hemoglobin ABG Oxyhemoglobin ABG Sodium ABG Potassium ABG Chloride ABG Glucose Carboxyhemoglobin Sodium Potassium Chloride BUN Creatinine Glucose POC Glucose 119 H 128 H Lactic Acid Calcium Phosphorus AST ALT Troponin T C-Reactive Protein Albumin HDL Cholesterol Arterial Blood Glucose Arterial Blood Ionized Calcium Urine WBC (Auto) 10/04/20 10/04/20 10/05/20 11:38 17:39 00:17 WBC RBC Hgb Hct MCV MCH RDW Plt Count Lymph % (Auto) [place] % (Auto) Lymph # (Auto) [place] # (Auto) Seg Neutrophils % Seg Neuts % (Manual) Monocytes % (Manual) Eosinophils % (Manual) Seg Neutrophils # Seg Neutrophils # Man Lymphocytes # (Manual) Monocytes # (Manual) Eosinophils # (Manual) APTT Heparin Anti-Xa Level ABG pH POC ABG pCO2 POC ABG pO2 ABG Hemoglobin ABG Oxyhemoglobin ABG Sodium ABG Potassium ABG Chloride ABG Glucose Carboxyhemoglobin Sodium Potassium Chloride BUN Creatinine Glucose POC Glucose 129 H 136 H 125 H Lactic Acid Calcium Phosphorus AST ALT Troponin T C-Reactive Protein Albumin HDL Cholesterol Arterial Blood Glucose Arterial Blood Ionized Calcium Urine WBC (Auto) 10/05/20 10/05/20 10/05/20 04:17 04:17 05:31 WBC 13.0 H RBC Hgb 9.1 L Hct 29.5 L MCV MCH 25 L RDW 22.2 H Plt Count Lymph % (Auto) [place] % (Auto) Lymph # (Auto) [place] # (Auto) Seg Neutrophils % Seg Neuts % (Manual) Monocytes % (Manual) Eosinophils % (Manual) Seg Neutrophils # Seg Neutrophils # Man Lymphocytes # (Manual) Monocytes # (Manual) Eosinophils # (Manual) APTT Heparin Anti-Xa Level ABG pH POC ABG pCO2 POC ABG pO2 ABG Hemoglobin ABG Oxyhemoglobin ABG Sodium ABG Potassium ABG Chloride ABG Glucose Carboxyhemoglobin Sodium Potassium Chloride BUN Creatinine Glucose 148 H POC Glucose 160 H Lactic Acid Calcium Phosphorus AST ALT Troponin T C-Reactive Protein Albumin HDL Cholesterol Arterial Blood Glucose Arterial Blood Ionized Calcium Urine WBC (Auto) 10/05/20 10/05/20 10/05/20 12:09 17:33 23:30 WBC RBC Hgb Hct MCV MCH RDW Plt Count Lymph % (Auto) [place] % (Auto) Lymph # (Auto) [place] # (Auto) Seg Neutrophils % Seg Neuts % (Manual) Monocytes % (Manual) Eosinophils % (Manual) Seg Neutrophils # Seg Neutrophils # Man Lymphocytes # (Manual) Monocytes # (Manual) Eosinophils # (Manual) APTT Heparin Anti-Xa Level ABG pH POC ABG pCO2 POC ABG pO2 ABG Hemoglobin ABG Oxyhemoglobin ABG Sodium ABG Potassium ABG Chloride ABG Glucose Carboxyhemoglobin Sodium Potassium Chloride BUN Creatinine Glucose POC Glucose 148 H 135 H 142 H Lactic Acid Calcium Phosphorus AST ALT Troponin T C-Reactive Protein Albumin HDL Cholesterol Arterial Blood Glucose Arterial Blood Ionized Calcium Urine WBC (Auto) 10/06/20 10/06/20 10/06/20 04:37 05:35 10:55 WBC RBC Hgb Hct MCV MCH RDW Plt Count Lymph % (Auto) [place] % (Auto) Lymph # (Auto) [place] # (Auto) Seg Neutrophils % Seg Neuts % (Manual) Monocytes % (Manual) Eosinophils % (Manual) Seg Neutrophils # Seg Neutrophils # Man Lymphocytes # (Manual) Monocytes # (Manual) Eosinophils # (Manual) APTT Heparin Anti-Xa Level ABG pH POC ABG pCO2 POC ABG pO2 ABG Hemoglobin ABG Oxyhemoglobin ABG Sodium ABG Potassium ABG Chloride ABG Glucose Carboxyhemoglobin Sodium 136 L Potassium Chloride BUN Creatinine Glucose 184 H POC Glucose 151 H 163 H Lactic Acid Calcium Phosphorus AST 66 H ALT Troponin T C-Reactive Protein Albumin 3.3 L HDL Cholesterol Arterial Blood Glucose Arterial Blood Ionized Calcium Urine WBC (Auto) 10/06/20 10/06/20 10/07/20 16:41 23:31 05:24 WBC RBC Hgb Hct MCV MCH RDW Plt Count Lymph % (Auto) [place] % (Auto) Lymph # (Auto) [place] # (Auto) Seg Neutrophils % Seg Neuts % (Manual) Monocytes % (Manual) Eosinophils % (Manual) Seg Neutrophils # Seg Neutrophils # Man Lymphocytes # (Manual) Monocytes # (Manual) Eosinophils # (Manual) APTT Heparin Anti-Xa Level ABG pH POC ABG pCO2 POC ABG pO2 ABG Hemoglobin ABG Oxyhemoglobin ABG Sodium ABG Potassium ABG Chloride ABG Glucose Carboxyhemoglobin Sodium Potassium Chloride BUN Creatinine Glucose POC Glucose 156 H 190 H 194 H Lactic Acid Calcium Phosphorus AST ALT Troponin T C-Reactive Protein Albumin HDL Cholesterol Arterial Blood Glucose Arterial Blood Ionized Calcium Urine WBC (Auto) 10/07/20 10/07/20 10/07/20 11:48 17:50 18:12 WBC 15.7 H RBC Hgb 9.2 L Hct 30.1 L MCV MCH 25 L RDW 24.1 H Plt Count 514 H Lymph % (Auto) [place] % (Auto) Lymph # (Auto) [place] # (Auto) Seg Neutrophils % Seg Neuts % (Manual) 71.0 H Monocytes % (Manual) Eosinophils % (Manual) 5.0 H Seg Neutrophils # Seg Neutrophils # Man 11.1 H Lymphocytes # (Manual) Monocytes # (Manual) 1.1 H Eosinophils # (Manual) 0.8 H APTT Heparin Anti-Xa Level ABG pH POC ABG pCO2 POC ABG pO2 ABG Hemoglobin ABG Oxyhemoglobin ABG Sodium ABG Potassium ABG Chloride ABG Glucose Carboxyhemoglobin Sodium Potassium Chloride BUN Creatinine Glucose POC Glucose 203 H 191 H Lactic Acid Calcium Phosphorus AST ALT Troponin T C-Reactive Protein Albumin HDL Cholesterol Arterial Blood Glucose Arterial Blood Ionized Calcium Urine WBC (Auto) 10/07/20 10/08/20 10/08/20 23:40 04:22 04:22 WBC 15.2 H RBC Hgb 9.6 L Hct MCV MCH 24 L RDW 23.3 H Plt Count 517 H Lymph % (Auto) [place] % (Auto) Lymph # (Auto) [place] # (Auto) Seg Neutrophils % Seg Neuts % (Manual) Monocytes % (Manual) Eosinophils % (Manual) Seg Neutrophils # Seg Neutrophils # Man Lymphocytes # (Manual) Monocytes # (Manual) Eosinophils # (Manual) APTT Heparin Anti-Xa Level ABG pH POC ABG pCO2 POC ABG pO2 ABG Hemoglobin ABG Oxyhemoglobin ABG Sodium ABG Potassium ABG Chloride ABG Glucose Carboxyhemoglobin Sodium Potassium Chloride BUN 18 H Creatinine Glucose 150 H POC Glucose 191 H Lactic Acid Calcium 10.3 H Phosphorus AST 63 H ALT Troponin T C-Reactive Protein Albumin HDL Cholesterol Arterial Blood Glucose Arterial Blood Ionized Calcium Urine WBC (Auto) 10/08/20 10/08/20 10/08/20 05:41 11:53 16:17 WBC RBC Hgb Hct MCV MCH RDW Plt Count Lymph % (Auto) [place] % (Auto) Lymph # (Auto) [place] # (Auto) Seg Neutrophils % Seg Neuts % (Manual) Monocytes % (Manual) Eosinophils % (Manual) Seg Neutrophils # Seg Neutrophils # Man Lymphocytes # (Manual) Monocytes # (Manual) Eosinophils # (Manual) APTT Heparin Anti-Xa Level ABG pH POC ABG pCO2 POC ABG pO2 ABG Hemoglobin ABG Oxyhemoglobin ABG Sodium ABG Potassium ABG Chloride ABG Glucose Carboxyhemoglobin Sodium Potassium Chloride BUN Creatinine Glucose POC Glucose 125 H 116 H 141 H Lactic Acid Calcium Phosphorus AST ALT Troponin T C-Reactive Protein Albumin HDL Cholesterol Arterial Blood Glucose Arterial Blood Ionized Calcium Urine WBC (Auto) 10/08/20 10/09/20 10/09/20 23:24 04:07 04:07 WBC 14.2 H RBC Hgb 9.6 L Hct MCV MCH 24 L RDW 23.5 H Plt Count 543 H Lymph % (Auto) [place] % (Auto) 10.4 H Lymph # (Auto) [place] # (Auto) 1.5 H Seg Neutrophils % 70.9 H Seg Neuts % (Manual) Monocytes % (Manual) Eosinophils % (Manual) Seg Neutrophils # 10.1 H Seg Neutrophils # Man Lymphocytes # (Manual) Monocytes # (Manual) Eosinophils # (Manual) APTT Heparin Anti-Xa Level ABG pH POC ABG pCO2 POC ABG pO2 ABG Hemoglobin ABG Oxyhemoglobin ABG Sodium ABG Potassium ABG Chloride ABG Glucose Carboxyhemoglobin Sodium Potassium Chloride BUN 18 H Creatinine Glucose 152 H POC Glucose 114 H Lactic Acid Calcium Phosphorus AST ALT Troponin T C-Reactive Protein Albumin HDL Cholesterol Arterial Blood Glucose Arterial Blood Ionized Calcium Urine WBC (Auto) 10/09/20 10/09/20 10/10/20 11:51 17:35 00:15 WBC RBC Hgb Hct MCV MCH RDW Plt Count Lymph % (Auto) [place] % (Auto) Lymph # (Auto) [place] # (Auto) Seg Neutrophils % Seg Neuts % (Manual) Monocytes % (Manual) Eosinophils % (Manual) Seg Neutrophils # Seg Neutrophils # Man Lymphocytes # (Manual) Monocytes # (Manual) Eosinophils # (Manual) APTT Heparin Anti-Xa Level ABG pH POC ABG pCO2 POC ABG pO2 ABG Hemoglobin ABG Oxyhemoglobin ABG Sodium ABG Potassium ABG Chloride ABG Glucose Carboxyhemoglobin Sodium Potassium Chloride BUN Creatinine Glucose POC Glucose 134 H 139 H 184 H Lactic Acid Calcium Phosphorus AST ALT Troponin T C-Reactive Protein Albumin HDL Cholesterol Arterial Blood Glucose Arterial Blood Ionized Calcium Urine WBC (Auto) 10/10/20 10/10/20 10/10/20 03:42 03:42 05:45 WBC 14.5 H RBC 3.62 L Hgb 9.1 L Hct 29.2 L MCV MCH 25 L RDW 24.2 H Plt Count 540 H Lymph % (Auto) [place] % (Auto) 13.6 H Lymph # (Auto) [place] # (Auto) 2.0 H Seg Neutrophils % Seg Neuts % (Manual) Monocytes % (Manual) Eosinophils % (Manual) Seg Neutrophils # 9.3 H Seg Neutrophils # Man Lymphocytes # (Manual) Monocytes # (Manual) Eosinophils # (Manual) APTT Heparin Anti-Xa Level ABG pH POC ABG pCO2 POC ABG pO2 ABG Hemoglobin ABG Oxyhemoglobin ABG Sodium ABG Potassium ABG Chloride ABG Glucose Carboxyhemoglobin Sodium 132 L Potassium Chloride 97.4 L BUN 23 H Creatinine Glucose 190 H POC Glucose 213 H Lactic Acid Calcium Phosphorus AST ALT Troponin T C-Reactive Protein Albumin HDL Cholesterol Arterial Blood Glucose Arterial Blood Ionized Calcium Urine WBC (Auto) 10/10/20 10/10/20 10/10/20 12:05 17:51 23:37 WBC RBC Hgb Hct MCV MCH RDW Plt Count Lymph % (Auto) [place] % (Auto) Lymph # (Auto) [place] # (Auto) Seg Neutrophils % Seg Neuts % (Manual) Monocytes % (Manual) Eosinophils % (Manual) Seg Neutrophils # Seg Neutrophils # Man Lymphocytes # (Manual) Monocytes # (Manual) Eosinophils # (Manual) APTT Heparin Anti-Xa Level ABG pH POC ABG pCO2 POC ABG pO2 ABG Hemoglobin ABG Oxyhemoglobin ABG Sodium ABG Potassium ABG Chloride ABG Glucose Carboxyhemoglobin Sodium Potassium Chloride BUN Creatinine Glucose POC Glucose 199 H 170 H 225 H Lactic Acid Calcium Phosphorus AST ALT Troponin T C-Reactive Protein Albumin HDL Cholesterol Arterial Blood Glucose Arterial Blood Ionized Calcium Urine WBC (Auto) 10/11/20 10/11/20 10/11/20 05:02 11:45 17:08 WBC RBC Hgb Hct MCV MCH RDW Plt Count Lymph % (Auto) [place] % (Auto) Lymph # (Auto) [place] # (Auto) Seg Neutrophils % Seg Neuts % (Manual) Monocytes % (Manual) Eosinophils % (Manual) Seg Neutrophils # Seg Neutrophils # Man Lymphocytes # (Manual) Monocytes # (Manual) Eosinophils # (Manual) APTT Heparin Anti-Xa Level ABG pH POC ABG pCO2 POC ABG pO2 ABG Hemoglobin ABG Oxyhemoglobin ABG Sodium ABG Potassium ABG Chloride ABG Glucose Carboxyhemoglobin Sodium Potassium Chloride BUN Creatinine Glucose POC Glucose 190 H 209 H 177 H Lactic Acid Calcium Phosphorus AST ALT Troponin T C-Reactive Protein Albumin HDL Cholesterol Arterial Blood Glucose Arterial Blood Ionized Calcium Urine WBC (Auto) 10/12/20 10/12/20 10/12/20 00:57 05:18 05:18 WBC 24.0 H RBC Hgb 9.4 L Hct 30.0 L MCV MCH 26 L RDW 23.9 H Plt Count 467 H Lymph % (Auto) [place] % (Auto) Lymph # (Auto) [place] # (Auto) Seg Neutrophils % Seg Neuts % (Manual) Monocytes % (Manual) 8.0 H Eosinophils % (Manual) Seg Neutrophils # Seg Neutrophils # Man 0.0 L Lymphocytes # (Manual) 0.0 L Monocytes # (Manual) Eosinophils # (Manual) APTT Heparin Anti-Xa Level ABG pH POC ABG pCO2 POC ABG pO2 ABG Hemoglobin ABG Oxyhemoglobin ABG Sodium ABG Potassium ABG Chloride ABG Glucose Carboxyhemoglobin Sodium Potassium 5.1 H D Chloride BUN 20 H Creatinine Glucose 183 H POC Glucose 176 H Lactic Acid Calcium Phosphorus AST ALT Troponin T C-Reactive Protein Albumin HDL Cholesterol Arterial Blood Glucose Arterial Blood Ionized Calcium Urine WBC (Auto) 10/12/20 10/12/20 10/12/20 05:52 11:20 17:37 WBC RBC Hgb Hct MCV MCH RDW Plt Count Lymph % (Auto) [place] % (Auto) Lymph # (Auto) [place] # (Auto) Seg Neutrophils % Seg Neuts % (Manual) Monocytes % (Manual) Eosinophils % (Manual) Seg Neutrophils # Seg Neutrophils # Man Lymphocytes # (Manual) Monocytes # (Manual) Eosinophils # (Manual) APTT Heparin Anti-Xa Level ABG pH POC ABG pCO2 POC ABG pO2 ABG Hemoglobin ABG Oxyhemoglobin ABG Sodium ABG Potassium ABG Chloride ABG Glucose Carboxyhemoglobin Sodium Potassium Chloride BUN Creatinine Glucose POC Glucose 167 H 179 H 150 H Lactic Acid Calcium Phosphorus AST ALT Troponin T C-Reactive Protein Albumin HDL Cholesterol Arterial Blood Glucose Arterial Blood Ionized Calcium Urine WBC (Auto) 10/13/20 10/13/20 10/13/20 00:06 05:31 11:09 WBC 14.3 H RBC 3.42 L Hgb 8.8 L Hct 27.8 L MCV MCH 26 L RDW 24.4 H Plt Count Lymph % (Auto) [place] % (Auto) Lymph # (Auto) [place] # (Auto) Seg Neutrophils % Seg Neuts % (Manual) Monocytes % (Manual) Eosinophils % (Manual) Seg Neutrophils # Seg Neutrophils # Man Lymphocytes # (Manual) Monocytes # (Manual) Eosinophils # (Manual) APTT Heparin Anti-Xa Level ABG pH POC ABG pCO2 POC ABG pO2 ABG Hemoglobin ABG Oxyhemoglobin ABG Sodium ABG Potassium ABG Chloride ABG Glucose Carboxyhemoglobin Sodium Potassium Chloride BUN Creatinine Glucose POC Glucose 181 H 178 H Lactic Acid Calcium Phosphorus AST ALT Troponin T C-Reactive Protein Albumin HDL Cholesterol Arterial Blood Glucose Arterial Blood Ionized Calcium Urine WBC (Auto) 10/13/20 10/13/20 10/13/20 11:09 11:28 17:41 WBC RBC Hgb Hct MCV MCH RDW Plt Count Lymph % (Auto) [place] % (Auto) Lymph # (Auto) [place] # (Auto) Seg Neutrophils % Seg Neuts % (Manual) Monocytes % (Manual) Eosinophils % (Manual) Seg Neutrophils # Seg Neutrophils # Man Lymphocytes # (Manual) Monocytes # (Manual) Eosinophils # (Manual) APTT Heparin Anti-Xa Level ABG pH POC ABG pCO2 POC ABG pO2 ABG Hemoglobin ABG Oxyhemoglobin ABG Sodium ABG Potassium ABG Chloride ABG Glucose Carboxyhemoglobin Sodium Potassium Chloride BUN 25 H Creatinine Glucose 207 H POC Glucose 209 H 167 H Lactic Acid Calcium 10.3 H Phosphorus AST ALT Troponin T C-Reactive Protein Albumin HDL Cholesterol Arterial Blood Glucose Arterial Blood Ionized Calcium Urine WBC (Auto) 10/13/20 10/14/20 23:43 05:46 WBC RBC Hgb Hct MCV MCH RDW Plt Count Lymph % (Auto) [place] % (Auto) Lymph # (Auto) [place] # (Auto) Seg Neutrophils % Seg Neuts % (Manual) Monocytes % (Manual) Eosinophils % (Manual) Seg Neutrophils # Seg Neutrophils # Man Lymphocytes # (Manual) Monocytes # (Manual) Eosinophils # (Manual) APTT Heparin Anti-Xa Level ABG pH POC ABG pCO2 POC ABG pO2 ABG Hemoglobin ABG Oxyhemoglobin ABG Sodium ABG Potassium ABG Chloride ABG Glucose Carboxyhemoglobin Sodium Potassium Chloride BUN Creatinine Glucose POC Glucose 162 H 152 H Lactic Acid Calcium Phosphorus AST ALT Troponin T C-Reactive Protein Albumin HDL Cholesterol Arterial Blood Glucose Arterial Blood Ionized Calcium Urine WBC (Auto) Chest x-ray: image reviewed Allied health notes reviewed: RT
[2020-10-14] MEDS: MODAFINIL 100 MG TAB PO SCH (09:58)
[2020-10-14] MEDS: MIDODRINE 5 MG TAB PO SCH ×4 (09:59→19:11)
[2020-10-14] MEDS: FAMOTIDINE 20 MG TAB PO SCH ×2 (09:59→22:30)
[2020-10-14] MEDS: levETIRAcetam 500 MG/5 ML ORAL LIQD PO SCH ×2 (10:00→22:30)
[2020-10-14] MEDS: ASPIRIN 81 MG TAB CHEW PO SCH (10:01)
[2020-10-14] MEDS: HEPARIN 5,000 UNIT/1 ML VIAL SUB-Q SCH ×3 (10:03→22:30)
[2020-10-14] MEDS: INSULIN LISPRO 100 UNIT/ML SUB-Q SCH ×3 (10:06→18:08)
--- NOTE | 2020-10-14 17:06 | Progress Note ---
Assessment and Plan --Febrile illness Negative blood culture, normal UA and chest x-ray without any infiltrates Trended down white count, monitor off antibiotics for now till final culture results available --Acute encephalopathy sp cardiac arrest; due to anoxic brain injury; MRI/ EEG - see report; concerned for anoxic injury neurology has seen poor prognosis case management working with family on d/c plan Status post trach in place placement; pt is a full code at this time --hx seizure disorder keppra BID PRN ativan modafinil daily no movement to noxious stimuli -hx htn; -hx dilated CHIEF LIBRARIAN WORK WITH BLIND/NSTEMI SR, asa daily coreg and cozar scheduled RN should hold BP meds for MAP <65 PRN labetolol echo LVEF 20-25 I/O follow electrolytes and replace as needed AM labs ordered -Acute hypoxic resp failure sp cardiac arrest Patient ventilated with mechanical ventilation gen surg consulted for trach --GERD pepcid scopolamine patch every 72 hours ordered standing --Constipation gen surg consult for PEG last recorded BM 6- bowel reg senna tolerating TF --Febrile illness with intermittent temps intermittent temps ? neuro etiology trend temp and WBC curve last cultures on 09/25 no antibiotics at this time --Morbid obesity avoid hypoglycemia currently on no SSI- continue to monitor for need with inc in TF rate Disposition Plan: LTC v home with family Total Time Spent with Patient (Minutes): 60 Brief history: 45-year-old female with obesity hypoventilation syndrome and GERD who presented to the emergency department on 09/25/20 s/p cardiac arrest via EMS. Per EMS staff they were notified for shortness of breath and upon arrival patient was found to be in distress and subsequently went into cardiac arrest and she was treated in accordance to ACLS protocol and intubated in the field and transported to [facility]. Evaluation in the emergency department upon arrival to the emergency department patient was found to have persistent hypoxic respiratory failure and was maintained on ventilator support. Work-up revealed sepsis, pneumonia, seizure disorder, metabolic acidosis as well as NSTEMI. Cardiology, neurology, CCM were consulted. Daily clinical course: 09/26/20: Patient was admitted with out of the hospital cardiac arrest status post CPR per ACLS protocols Anoxic brain injury, unresponsive Orally intubated on ventilatory support Vital signs reviewed. called patient's aunt , NOK Ms. Debora Minor at [phone] and discussed in detail, patient's condition, tests and reports, consultants recommendations, poor prognosis, treatment plan[explained in detail the medications and their role in the treatment] pending tests. 09/27/2020; patient remains unresponsive, intubated on ventilatory support Follow neurology evaluation and recommendations 10/01: Patient has persistent leukocytosis and hyperchloremia. Patient now has hypernatremia and renal function has improved to CR/BUN 1.1/ from 1.08/04. Patient has hypophosphatemia which was repleted yesterday and we will obtain a.m. labs. Patient has MRI brain pending. Family updated by neurology over the phone and JOURNEYMAN OPERATOR ASSISTANT at bedside. Patient niece was at bedside today and she will defer goals of care decision after MRI results. EEG findings were explained. According to her the patient was in found to be unresponsive by family and was given b ystander CPR before arrival of EMS. 10/02: Patient received MRI brain today which showed diffuse cerebral restricted diffusion consistent with global anoxic brain injury, no associated hemorrhage or herniation and additional small acute lacunar infarct in the right paracentral lesia. 10/03: Cardiology will follow the patient peripherally given poor prognosis, Dr. Alvarado and has spoken to the family regarding prognosis today. Given hypotension patient will receive lower doses of blood pressure medicine and per psychotherapist social worker request a referral to [facility]. 10/04: Patient bilateral Doppler ultrasound are negative and heparin drip has been stopped. [facility] center referral made by CM which was denied. Family is aware. No acute events reported overnight. Patient family was at bedside and updated by neurologist. Explained to them that pt. is not brain but is with significant brain injury, she is off sedation for a week with no clear changes in her clinical presentation. 10/05: Today patient is no longer hypernatremic so free water flushes were resume at the rate nutrition as ordered. Decrease in Cozaar today patient's T-max 100.7 which was responsive to Tylenol. At the time examination patient is on assist control tidal volume 450, rate of 12, PEEP of 6 and 25% FiO2. Patient will be tried on a CPAP trial today. 10/06/2020: No family at the bedside, spoke with critical care, patient was opening her eyes but continues to be encephalopathic. Patient on cefepime, will get pro-Kareem, if negative, DC antibiotics. Continues to be on CPAP and intubated. 10/07: No significant change clinically, patient remains on mechanical ventilation. discussed LT plan with Aunt and she is wanting a trach/peg and to take pt home with her; pt is a full code at this time. 10/08: General surgery consulted for trach and PEG placement. Patient remains on mechanical ventilation with diffuse anoxic brain injury status post cardiac arrest. Continue supportive care monitor clinically. Patient is full code very poor prognosis. 10/09/20; patient remains on ventilator with trach tube, started on tube feeding with PEG. Continue supportive care, vital stable. microsoft dynamics manager architect working on placement. 10/10/20: Patient mechanically ventilated with trach tube. Tolerating tube feeding. microsoft dynamics manager architect working on placement. Very poor prognosis need long-term placement. 10/11/20; patient remains mechanically ventilated via trach tube. Critical care working on to wean off from the vent. Very poor prognosis. Continue supportive care and pending placement. 10/12/20; patient intermittently spiking fever. Order for stat blood culture, UA and chest x-ray. Patient also has elevated white count, monitor off antibiotics for now till culture results available. Patient on CPAP with a trach tube. Discussed plan of care patient's aunt at bedside. I explained to family that patient still with guarded prognosis and poor chance for recovery from diffuse anoxic brain injury. 10/13/20: Patient noted to be hypotensive today, will initiate IV fluid. Chest x-ray yesterday showed no infiltrate, UA normal. Blood culture 24-hour showing no growth. Temperature trended down and currently appears to be normal. Will hold BP meds and will follow clinically. Family at the bedside, updated. 10/14/20: all Cx negative, BP stable with gentle hydration, intermittently spiking fever. started on midodrine. if cont to spike fever will consult ID. family at bedside and updated Subjective Date of service: 10/14/20 Principal diagnosis: Cardiac arrest; Ac. respiratory failure; Anoxic encephalopathy; PNA; NSTEMI Interval history: Patient seen and examined. Medical records and medication list reviewed. No acute event overnight noted by the RN. Patient on ventilator with trach tube, started on tube feeding with newly placed PEG tube microsoft dynamics manager architect working on placement BP stable today Discussed with patient's aunt at bedside -updated with all clinical details Objective - Exam Narrative Exam: General appearance: Present: no acute distress, well-nourished, other (not responsive ) - EENT ENT: clear oral mucosa - Neck Neck: Present: supple, normal ROM, trach in place - Respiratory Respiratory effort: normal - Cardiovascular Rhythm: regular Heart Sounds: Present: S1 & S2 Peripheral Pulses: within normal limits - Abdominal General gastrointestinal: soft, non-tender, PEG in place - Integumentary Integumentary: Present: clear, warm, dry - Allied Health Allied health notes reviewed: nursing, case management - Constitutional Vitals: Vital Signs - 12hr 10/14/20 10/14/20 10/14/20 08:00 08:07 08:15 Temperature 98.1 F Pulse Rate 110 H 108 H 99 H Pulse Rate [ 108 H From Monitor] Respiratory 11 L 22 Rate Blood Pressure 114/51 107/49 O2 Sat by Pulse 99 100 100 Oximetry O2 Sat by Pulse 99 Oximetry [ Assessment] 10/14/20 10/14/20 09:30 11:12 Temperature Pulse Rate 97 H 102 H Pulse Rate [ From Monitor] Respiratory 25 H Rate Blood Pressure 107/49 127/63 O2 Sat by Pulse 98 Oximetry O2 Sat by Pulse Oximetry [ Assessment] - Labs CBC & Chem 7: 10/15/20 04:56 10/15/20 04:56 Labs: Abnormal lab results 10/13/20 10/13/20 10/14/20 Range/Units 17:41 23:43 05:46 POC Glucose 167 H 162 H 152 H (70-105) mg/dL 10/14/20 Range/Units 10:54 POC Glucose 142 H (70-105) mg/dL HEART Score - HEART Score EKG: Normal Age: 45-65 Risk factors: No known risk factors Troponin: Troponin T < 0.010 ng/mL (0.00-0.029) 10/02/20 06:48 Troponin: < normal limit - Critical Actions Critical Actions: 0-3 pts:0.9-1.7%risk of adverse cardiac event.Candidate for discharge
[2020-10-14] MEDS ORDERED: POTASSIUM CHLORIDE ER 20 MEQ TAB PO ONE (18:31)
[2020-10-14] MEDS: SENNOSIDES 8.6 MG TAB PO SCH (22:29)
[2020-10-15] MEDS: INSULIN LISPRO 100 UNIT/ML SUB-Q SCH ×4 (00:22→17:53)
[2020-10-15 05:19] LABS: Basophils % (Auto) 0.3 % (0.0-1.8); Eosinophils # (Auto) 0.5 K/mm3 (0.0-0.4); Eosinophils % (Auto) 3.8 % (0.0-4.3); Hematocrit 26.8 % (30.3-42.9); Hemoglobin 8.4 gm/dl (10.1-14.3); Lymphocytes # (Auto) 2.8 K/mm3 (1.2-5.4); Mean Corpuscular HGB Conc 31 % (30-34); Mean Corpuscular Volume 82 fl (79-97); Monocytes # (Auto) 1.2 K/mm3 (0.0-0.8); Monocytes % (Auto) 8.4 % (0.0-7.3); Platelet Count 410 K/mm3 (140-440); Red Blood Count 3.29 M/mm3 (3.65-5.03)
[2020-10-15 05:22] LABS: Red Cell Distribution Width 24.5 % (13.2-15.2)
[2020-10-15 05:37] LABS: Blood Urea Nitrogen 16 mg/dL (7-17); Calcium 9.4 mg/dL (8.4-10.2); Hemolysis Index 13
[2020-10-15 05:38] LABS: BUN/Creatinine Ratio 27
[2020-10-15] MEDS: HEPARIN 5,000 UNIT/1 ML VIAL SUB-Q SCH ×3 (07:40→22:31)
[2020-10-15] MEDS: MIDODRINE 5 MG TAB PO SCH ×3 (08:44→16:25)
[2020-10-15] MEDS: levETIRAcetam 500 MG/5 ML ORAL LIQD PO SCH ×2 (10:55→22:30)
[2020-10-15] MEDS: MODAFINIL 100 MG TAB PO SCH (10:55)
[2020-10-15] MEDS: ASPIRIN 81 MG TAB CHEW PO SCH (10:55)
[2020-10-15] MEDS: FAMOTIDINE 20 MG TAB PO SCH ×2 (10:55→22:31)
[2020-10-15] MEDS: carvediloL 3.125 MG TAB PO SCH ×2 (10:56→22:31)
--- NOTE | 2020-10-15 12:23 | Consultation ---
History of Present Illness - Reason for Consult Consult date: 10/15/20 febrile illness Requesting physician: FAUSTO JARAMILLO - History of Present Illness The patient is a 45-year-old female with morbid obesity, obesity hypoventilation, gastroesophageal reflux disease admitted to the hospital on 09/25/2020 after a cardiac arrest requiring ACLS protocol, she has been in ICU, on mechanical ventilation. Believed to have underlying anoxic brain injury based on MRI. She is status post tracheostomy tube and PEG tube placements. She has been having intermittent fevers with a T-max of 101.4 F, hence infectious diseases was consulted. Labs show WBC 13.8, creatinine 0.6. Most recent UA from 10/12/2020 did not show pyuria. COVID-19 PCR was negative. History obtained by chart review and speaking to aunt. Review of Systems: Unable to obtain due to mentation Past History Past Medical History: GERD, other (See HPI) Past Surgical History: No surgical history (Thank you) Social history: single. denies: smoking, alcohol abuse Family history: hypertension Medications and Allergies Allergies Allergy/AdvReac Type Severity Reaction Status Date / Time No Known Allergies Allergy Unverified 06/19/19 11:32 Home Medications Medication Instructions Recorded Confirmed Last Taken Type Ferrous Sulfate [Feosol] 325 mg PO TID 10/10/20 10/10/20 Unknown History Losartan [Cozaar] 100 mg PO QDAY 10/10/20 10/10/20 Unknown History carvediloL [Coreg] 6.25 mg PO BID 10/10/20 10/10/20 Unknown History Active Meds: Active Medications Acetaminophen (Acetaminophen 650 Mg Rect Supp) 650 mg NE Q6H PRN PRN Reason: Pain MILD(1-3)/Fever >100.5/RUIZ Acetaminophen (Acetaminophen 325 Mg/10.15 Ml Oral Liqd Unit Dose) 650 mg FEEDTUBE Q6H PRN PRN Reason: Pain, Mild (1-3) Last Admin: 10/10/20 21:43 Dose: 650 mg Documented by: Albuterol (Albuterol 2.5 Mg/3 Ml Nebu) 2.5 mg IH Q3HRT PRN PRN Reason: Shortness Of Breath Lipase/Protease/Amylase (Lipase 10,500/Protease 25,000/Amylase 43,750 (Units) Dr Cap) 1 each FEEDTUBE PRN PRN PRN Reason: For Clogged Feeding Tube Aspirin (Aspirin 81 Mg Tab Chew) 81 mg PO QDAY [facility] Last Admin: 10/15/20 10:55 Dose: 81 mg Documented by: Carvedilol (Carvedilol 3.125 Mg Tab) 3.125 mg PO BID [facility] Last Admin: 10/15/20 10:56 Dose: Not Given Documented by: Famotidine (Famotidine 20 Mg Tab) 20 mg PO BID [facility] Last Admin: 10/15/20 10:55 Dose: 20 mg Documented by: Heparin Sodium (Porcine) (Heparin 5,000 Unit/1 Ml Vial) 5,000 unit SUB-Q Q8HR [facility] Last Admin: 10/15/20 07:40 Dose: Not Given Documented by: Hydromorphone HCl (Hydromorphone 1 Mg/1 Ml Inj) 0.25 mg IV Q4H PRN PRN Reason: Pain, Moderate (4-6) Last Admin: 09/30/20 14:05 Dose: 0.25 mg Documented by: Hydrophilic Ointment (Lip Therapy Vaseline) 1 applic TP Q2HR PRN PRN Reason: Dry Lips Insulin Human Lispro (Insulin Lispro 100 Unit/Ml) 0 unit SUB-Q Q6HR [facility]; Protocol Last Admin: 10/15/20 07:40 Dose: Not Given Documented by: Labetalol HCl (Labetalol 20 Mg/4 Ml Inj) 10 mg IV Q4H PRN PRN Reason: Blood Pressure Last Admin: 09/30/20 14:02 Dose: 10 mg Documented by: Levetiracetam (Levetiracetam 500 Mg/5 Ml Oral Liqd) 750 mg PO BID [facility] Last Admin: 10/15/20 10:55 Dose: 750 mg Documented by: Lorazepam (Lorazepam 2 Mg/Ml Vial) 2 mg IV Q4H PRN PRN Reason: Seizures Midodrine (Midodrine 5 Mg Tab) 10 mg PO TID@0800,1200,1600 [facility] Stop: 10/16/20 19:29 Last Admin: 10/15/20 11:10 Dose: 10 mg Documented by: Modafinil (Modafinil 100 Mg Tab) 200 mg PO QAM [facility] Last Admin: 10/15/20 10:55 Dose: 200 mg Documented by: Multi-Ingred Cream/Lotion/Oil/Oint (Mineral Oil/Petrolatum, White Ophth Oint 3.5 Gm) 1 applic OU Q4HR PRN PRN Reason: Dry Eye(s) Last Admin: 09/28/20 22:02 Dose: 1 applic Documented by: Ondansetron HCl (Ondansetron 4 Mg/2 Ml Inj) 4 mg IV Q8H PRN PRN Reason: Nausea And Vomiting Last Admin: 09/30/20 10:01 Dose: 4 mg Documented by: Scopolamine (Scopolamine Transdermal Patch 72 Hr) 1 each TD Q72HR [facility] Last Admin: 10/12/20 09:15 Dose: 1 each Documented by: Senna (Sennosides 8.6 Mg Tab) 17.2 mg PO QHS [facility] Last Admin: 10/14/20 22:29 Dose: 17.2 mg Documented by: Simple Syrup (Simple Syrup 15 Ml) 15 ml FEEDTUBE PRN PRN PRN Reason: Hypoglycemia Simple Syrup (Simple Syrup 15 Ml) 30 ml FEEDTUBE PRN PRN PRN Reason: Hypoglycemia Last Admin: 09/29/20 06:13 Dose: 30 ml Documented by: Sodium Bicarbonate (Sodium Bicarbonate 325 Mg Tab) 325 mg FEEDTUBE PRN PRN PRN Reason: For Clogged Feeding Tube Sodium Chloride (Sodium Chloride 0.9% 10 Ml Flush Syringe) 10 ml IV BID [facility] Last Admin: 10/15/20 10:56 Dose: 10 ml Documented by: Sodium Chloride (Sodium Chloride 0.9% 10 Ml Flush Syringe) 10 ml IV PRN PRN PRN Reason: LINE FLUSH Physical Examination - Physical Exam Narrative exam: Physical Exam: Constitutional: Unresponsive on the vent Head, Ears, Nose: Normocephalic, atraumatic. External ears, nose normal Eyes: Conjunctivae/corneas clear. No icterus. No ptosis. Neck: Trach Cardiovascular: S1, S2 + Respiratory: AE fair bilaterally and equal GI: Soft, bowel sounds +, G-tube + Musculoskeletal: No pedal edema, no cyanosis. Skin: No rash or abscess Hem/Lymphatic: No palpable cervical or supraclavicular nodes. No lymphangitis Psych: no agitation Neurological: Unresponsive, on the vent, exam limited - Constitutional Vitals: Vital Signs Temp Pulse Resp BP Pulse Ox 99.1 F 106 H 24 119/58 96 10/15/20 08:00 10/15/20 11:42 10/15/20 11:42 10/15/20 11:42 10/15/20 11:42 Temperature -Last 24 Hours Temperature 99.1 F Temperature 99.1 F Temperature 101.4 F Temperature 100.8 F Temperature 100.2 F Temperature 98 F Results - Labs CBC & Chem 7: 10/15/20 04:56 10/15/20 04:56 Labs: Abnormal lab results 10/14/20 10/15/20 10/15/20 Range/Units 17:59 00:10 04:56 WBC 13.8 H (4.5-11.0) K/mm3 RBC 3.29 L (3.65-5.03) M/mm3 Hgb 8.4 L (10.1-14.3) gm/dl Hct 26.8 L (30.3-42.9) % MCH 26 L (28-32) pg RDW 24.5 H (13.2-15.2) % [place] % (Auto) 8.4 H (0.0-7.3) % [place] # (Auto) 1.2 H (0.0-0.8) K/mm3 Eos # (Auto) 0.5 H (0.0-0.4) K/mm3 Seg Neutrophils # 9.3 H (1.8-7.7) K/mm3 Glucose (65-100) mg/dL POC Glucose 131 H 163 H (70-105) mg/dL 10/15/20 Range/Units 04:56 WBC (4.5-11.0) K/mm3 RBC (3.65-5.03) M/mm3 Hgb (10.1-14.3) gm/dl Hct (30.3-42.9) % MCH (28-32) pg RDW (13.2-15.2) % [place] % (Auto) (0.0-7.3) % [place] # (Auto) (0.0-0.8) K/mm3 Eos # (Auto) (0.0-0.4) K/mm3 Seg Neutrophils # (1.8-7.7) K/mm3 Glucose 163 H (65-100) mg/dL POC Glucose (70-105) mg/dL - Imaging and Cardiology Chest x-ray: report reviewed, image reviewed (no pneumonia) Assessment and Plan Cultures: COVID-19 PCR: Negative 09/25/2020 urine culture: No growth 09/25/2020 blood culture: No growth 10/12/2020 blood culture: No growth A/P: 45-year-old female with morbid obesity, obesity hypoventilation, gastroesophageal reflux disease admitted to the hospital on 09/25/2020 after a c ardiac arrest requiring ACLS protocol, she has been in ICU, on mechanical ventilation. Believed to have underlying anoxic brain injury based on MRI. She is status post tracheostomy tube and PEG tube placements: #Intermittent febrile illness: UA, chest x-ray and blood cultures not consistent with infection. MRI with evidence of anoxic brain injury. Central fever is a possibility. Continue to hold off on antibiotics at this point. Procal on 10/06/2020 was low. #Acute hypoxic/anoxic encephalopathy #Acute respiratory failure: s/p trach #Morbid obesity Recs: -Continue off antibiotics for now. Plan discussed with patient's caregiver/aunt at bedside -Overall poor prognosis, remains at risk of several infectious complications including pneumonia, UTI, decubitus ulcers Manasa Maki MD, FACP [facility] O: [phone] F: [phone]
--- NOTE | 2020-10-15 13:05 | Progress Note ---
Assessment and Plan Cardiac arrest with return of spontaneous circulation. Acute respiratory failure, on mechanical ventilatory support. Acute toxic metabolic encephalopathy. Possible anoxic encephalopathy. Obesity. History of obesity hypoventilation syndrome. Leukocytosis. Likely aspiration pneumonia, bilateral. Anemia that is microcytic. Lactic acidosis. Elevated serum transaminases. Non-ST elevation myocardial infarction - shoot for t-piece till 10 pm tonight - tentatively RTC t-piece RTC from tomorrow - care plan discussed with Aunt at length - LTAC evaluation ongoing - continue care as below otherwise; - continue Daily SAT and SBT assessment as tolerated - continue scopolamine patch for secretion control - continue to wean supplemental oxygen for target O2 sat's > 90% acutely - VAP bundle addressed - continue lung protective strategies - continue bronchodilators with pulmonary hygiene per RT - wean per pulmonary driven protocols otherwise - continue accuchecks with glycemic control per SSI (While critically ill target blood glucose of 140-180 mg/dL; avoid hypoglycemia) - sedation prn for target RASS 0 to -1 - avoid nephrotoxins, renally dose all medications - continue to avoid benzodiazepine's, reduce the possibility of delirium - completed AB's per ID rec's - prn analgesia per CPOT score - Maintenance of sleep-wake cycle, avoid delirium - continue enteral nutritional support at goal rate as tolerated - G.I. & VTE prophylaxis - PT/OT/ROM exercises - continue mobility protocols for pressure ulcer prophylaxis - Monitor hemodynamics closely - continue other care per attending / other consultants - discharge planning ongoing concurrently COVID SPECIFIC INTERVENTIONS - COVID tests result was negative .... Re-evaluate in am & prn CONDITION: CRITICAL PROGNOSIS: GUARDED CODE STATUS: FULL CODE The high probability of a clinically significant, sudden or life-threatening deterioration of the [respiratory, cardiovascular & neurologic] system(s) required my full and direct attention, intervention and personal management. The aggregate critical care time was [33] minutes without overlap. Time includes spent on; [x] Data Review and interpretation [x] Patient assessment and monitoring of vital signs [x] Documentation [x] Medication orders and management Subjective Date of service: 10/15/20 Principal diagnosis: Cardiac arrest; Ac. respiratory failure; Anoxic encephalopathy; PNA; NSTEMI Interval history: Patient is seen today for: Cardiac arrest with ROSC; Acute respiratory failure; Anoxic encephalopathy; Obesity; OHS; Aspiration pneumonia; NSTEMI Seen and examined at bedside; 24hour events reviewed; nursing and respiratory care staff consulted; no adverse overnight events reported to me; resting in bed; remains on MVS but tolerating t-piece trial well so far today; Aunty is visiting; BP's better but still having to hold Coreg this am Objective Vital Signs - 12hr 10/15/20 10/15/20 10/15/20 01:30 02:00 02:30 Temperature Pulse Rate 114 H 110 H 108 H Pulse Rate [ From Monitor] Respiratory 28 H 28 H 27 H Rate Blood Pressure 135/71 140/68 141/77 O2 Sat by Pulse 100 99 100 Oximetry O2 Sat by Pulse Oximetry [ Assessment] 10/15/20 10/15/20 10/15/20 03:00 03:30 04:00 Temperature Pulse Rate 108 H 110 H 111 H Pulse Rate [ From Monitor] Respiratory 12 16 15 Rate Blood Pressure 139/71 139/71 131/63 O2 Sat by Pulse 97 100 100 Oximetry O2 Sat by Pulse Oximetry [ Assessment] 10/15/20 10/15/20 10/15/20 04:16 04:29 04:30 Temperature 101.4 F H Pulse Rate 113 H 114 H Pulse Rate [ From Monitor] Respiratory 18 Rate Blood Pressure 131/63 119/71 O2 Sat by Pulse 100 97 Oximetry O2 Sat by Pulse 98 Oximetry [ Assessment] 10/15/20 10/15/20 10/15/20 05:00 05:30 06:00 Temperature Pulse Rate 112 H 109 H 108 H Pulse Rate [ From Monitor] Respiratory 24 27 H 29 H Rate Blood Pressure 119/70 123/72 136/75 O2 Sat by Pulse 98 98 97 Oximetry O2 Sat by Pulse Oximetry [ Assessment] 10/15/20 10/15/20 10/15/20 06:30 07:00 07:30 Temperature Pulse Rate 105 H 102 H Pulse Rate [ From Monitor] Respiratory 16 22 Rate Blood Pressure 145/73 145/73 126/65 O2 Sat by Pulse 96 100 99 Oximetry O2 Sat by Pulse Oximetry [ Assessment] 10/15/20 10/15/20 10/15/20 07:51 07:55 08:00 Temperature 99.1 F Pulse Rate 106 H 105 H 105 H Pulse Rate [ From Monitor] Respiratory 22 20 Rate Blood Pressure 117/60 117/60 117/60 O2 Sat by Pulse 100 99 100 Oximetry O2 Sat by Pulse Oximetry [ Assessment] 10/15/20 10/15/20 10/15/20 08:29 08:30 09:00 Temperature Pulse Rate 105 H 105 H 107 H Pulse Rate [ 105 H From Monitor] Respiratory 21 21 23 Rate Blood Pressure 134/62 121/50 O2 Sat by Pulse 99 99 99 Oximetry O2 Sat by Pulse Oximetry [ Assessment] 10/15/20 10/15/20 10/15/20 09:30 10:00 10:30 Temperature Pulse Rate 105 H 110 H 108 H Pulse Rate [ From Monitor] Respiratory 22 24 20 Rate Blood Pressure 115/51 129/63 129/63 O2 Sat by Pulse 99 100 99 Oximetry O2 Sat by Pulse Oximetry [ Assessment] 10/15/20 10/15/20 10/15/20 11:00 11:41 11:42 Temperature Pulse Rate 106 H 106 H Pulse Rate [ From Monitor] Respiratory 30 H 24 Rate Blood Pressure 117/60 119/58 O2 Sat by Pulse 98 96 96 Oximetry O2 Sat by Pulse Oximetry [ Assessment] Constitutional: no acute distress, other (middle aged obese female with mildly increased respiratory effort at rest ) Eyes: non-icteric ENT: oropharynx moist, other (+ midline tracheostomy) Neck: supple, no lymphadenopathy, no JVD Effort: mildly labored Ascultation: Bilateral: rhonchi (scant) Percussion: Bilateral: not dull Cardiovascular: regular rate and rhythm, other (S1,S2) Gastrointestinal: normoactive bowel sounds, soft, non-tender, non-distended Integumentary: normal Extremities: no cyanosis, no edema, pulses normal, no ischemia or petechiae Neurologic: pupils equal and round, unable to assess Psychiatric: other (unable to assess re: AMS) CBC and BMP: 10/15/20 04:56 10/15/20 04:56 ABG, PT/INR, D-dimer: ABG ABG pH 7.424 (7.320-7.450) 10/01/20 04:12 POC ABG pCO2 41.6 mmHg (32.0-48.0) 10/01/20 04:12 POC ABG pO2 73.0 mmHg (83-108) L 10/01/20 04:12 POC ABG HCO3 26.6 10/01/20 04:12 ABG O2 Saturation 94.3 (0-100) 10/01/20 04:12 PT/INR, D-dimer PT 13.7 Sec. (12.2-14.9) 09/25/20 18:15 INR 1.00 (0.87-1.13) 09/25/20 18:15 Abnormal lab findings: Abnormal Labs 09/25/20 09/25/20 09/25/20 17:19 17:21 18:15 WBC 13.8 H RBC Hgb 9.9 L Hct MCV 76 L MCH 23 L RDW 17.9 H Plt Count Lymph % (Auto) [place] % (Auto) Lymph # (Auto) [place] # (Auto) Eos # (Auto) Seg Neutrophils % 78.6 H Seg Neuts % (Manual) Monocytes % (Manual) Eosinophils % (Manual) Seg Neutrophils # 10.8 H Seg Neutrophils # Man Lymphocytes # (Manual) Monocytes # (Manual) Eosinophils # (Manual) APTT Heparin Anti-Xa Level ABG pH POC ABG pCO2 26.2 L POC ABG pO2 554.5 H ABG Hemoglobin 9.0 L ABG Oxyhemoglobin 99.0 H ABG Sodium 134.5 L ABG Potassium ABG Chloride ABG Glucose 220 H Carboxyhemoglobin Sodium Potassium Chloride BUN Creatinine Glucose POC Glucose Lactic Acid Calcium Phosphorus AST ALT Troponin T C-Reactive Protein Albumin HDL Cholesterol Arterial Blood Glucose 220 H Arterial Blood Ionized Calcium 4.2 L Urine WBC (Auto) 14.0 H 09/25/20 09/25/20 09/25/20 18:15 18:15 18:15 WBC RBC Hgb Hct MCV MCH RDW Plt Count Lymph % (Auto) [place] % (Auto) Lymph # (Auto) [place] # (Auto) Eos # (Auto) Seg Neutrophils % Seg Neuts % (Manual) Monocytes % (Manual) Eosinophils % (Manual) Seg Neutrophils # Seg Neutrophils # Man Lymphocytes # (Manual) Monocytes # (Manual) Eosinophils # (Manual) APTT 21.1 L Heparin Anti-Xa Level ABG pH POC ABG pCO2 POC ABG pO2 ABG Hemoglobin ABG Oxyhemoglobin ABG Sodium ABG Potassium ABG Chloride ABG Glucose Carboxyhemoglobin Sodium Potassium Chloride BUN Creatinine Glucose 113 H POC Glucose Lactic Acid 2.60 H* Calcium Phosphorus AST 162 H ALT 131 H Troponin T 0.096 H C-Reactive Protein Albumin HDL Cholesterol Arterial Blood Glucose Arterial Blood Ionized Calcium Urine WBC (Auto) 09/25/20 09/25/20 09/26/20 23:13 23:13 03:15 WBC RBC Hgb Hct MCV MCH RDW Plt Count Lymph % (Auto) [place] % (Auto) Lymph # (Auto) [place] # (Auto) Eos # (Auto) Seg Neutrophils % Seg Neuts % (Manual) Monocytes % (Manual) Eosinophils % (Manual) Seg Neutrophils # Seg Neutrophils # Man Lymphocytes # (Manual) Monocytes # (Manual) Eosinophils # (Manual) APTT Heparin Anti-Xa Level ABG pH 7.451 H POC ABG pCO2 27.1 L POC ABG pO2 ABG Hemoglobin 10.4 L ABG Oxyhemoglobin ABG Sodium 135.2 L ABG Potassium ABG Chloride 108.0 H ABG Glucose 137 H Carboxyhemoglobin Sodium Potassium Chloride BUN Creatinine Glucose POC Glucose Lactic Acid 2.90 H* Calcium Phosphorus AST ALT Troponin T 0.170 H* D C-Reactive Protein Albumin HDL Cholesterol 60 H Arterial Blood Glucose 137 H Arterial Blood Ionized Calcium 4.2 L Urine WBC (Auto) 09/26/20 09/26/20 09/26/20 05:09 05:09 05:09 WBC 15.8 H RBC Hgb 10.0 L Hct MCV 77 L MCH 24 L RDW 17.8 H Plt Count Lymph % (Auto) 7.2 L [place] % (Auto) Lymph # (Auto) 1.1 L [place] # (Auto) 1.0 H Eos # (Auto) Seg Neutrophils % 86.1 H Seg Neuts % (Manual) Monocytes % (Manual) Eosinophils % (Manual) Seg Neutrophils # 13.6 H Seg Neutrophils # Man Lymphocytes # (Manual) Monocytes # (Manual) Eosinophils # (Manual) APTT Heparin Anti-Xa Level ABG pH POC ABG pCO2 POC ABG pO2 ABG Hemoglobin ABG Oxyhemoglobin ABG Sodium ABG Potassium ABG Chloride ABG Glucose Carboxyhemoglobin Sodium Potassium Chloride BUN Creatinine Glucose 114 H POC Glucose Lactic Acid 2.40 H* Calcium 8.1 L Phosphorus AST 112 H ALT 103 H Troponin T C-Reactive Protein Albumin 3.8 L HDL Cholesterol Arterial Blood Glucose Arterial Blood Ionized Calcium Urine WBC (Auto) 09/26/20 09/27/20 09/27/20 15:45 03:33 04:41 WBC RBC Hgb 9.0 L Hct 28.6 L MCV MCH RDW Plt Count Lymph % (Auto) [place] % (Auto) Lymph # (Auto) [place] # (Auto) Eos # (Auto) Seg Neutrophils % Seg Neuts % (Manual) Monocytes % (Manual) Eosinophils % (Manual) Seg Neutrophils # Seg Neutrophils # Man Lymphocytes # (Manual) Monocytes # (Manual) Eosinophils # (Manual) APTT Heparin Anti-Xa Level ABG pH POC ABG pCO2 POC ABG pO2 141.6 H ABG Hemoglobin 9.3 L ABG Oxyhemoglobin ABG Sodium ABG Potassium 3.2 L ABG Chloride 108.0 H ABG Glucose 118 H Carboxyhemoglobin Sodium Potassium Chloride BUN Creatinine Glucose POC Glucose Lactic Acid Calcium Phosphorus 2.20 L AST ALT Troponin T C-Reactive Protein 4.30 H Albumin HDL Cholesterol Arterial Blood Glucose 118 H Arterial Blood Ionized Calcium 4.2 L Urine WBC (Auto) 09/27/20 09/27/20 09/28/20 04:41 22:53 04:00 WBC RBC Hgb Hct MCV MCH RDW Plt Count Lymph % (Auto) [place] % (Auto) Lymph # (Auto) [place] # (Auto) Eos # (Auto) Seg Neutrophils % Seg Neuts % (Manual) Monocytes % (Manual) Eosinophils % (Manual) Seg Neutrophils # Seg Neutrophils # Man Lymphocytes # (Manual) Monocytes # (Manual) Eosinophils # (Manual) APTT Heparin Anti-Xa Level 0.75 H ABG pH 7.467 H POC ABG pCO2 POC ABG pO2 78.9 L ABG Hemoglobin 9.8 L ABG Oxyhemoglobin ABG Sodium ABG Potassium ABG Chloride ABG Glucose 141 H Carboxyhemoglobin Sodium Potassium Chloride BUN Creatinine Glucose POC Glucose 109 H Lactic Acid Calcium Phosphorus AST ALT Troponin T C-Reactive Protein Albumin HDL Cholesterol Arterial Blood Glucose 141 H Arterial Blood Ionized Calcium Urine WBC (Auto) 09/28/20 09/28/20 09/28/20 05:02 05:02 17:42 WBC 11.9 H RBC Hgb 9.3 L Hct 29.5 L MCV 76 L MCH 24 L RDW 19.4 H Plt Count Lymph % (Auto) [place] % (Auto) 11.1 H Lymph # (Auto) [place] # (Auto) 1.3 H Eos # (Auto) Seg Neutrophils % 72.5 H Seg Neuts % (Manual) Monocytes % (Manual) Eosinophils % (Manual) Seg Neutrophils # 8.6 H Seg Neutrophils # Man Lymphocytes # (Manual) Monocytes # (Manual) Eosinophils # (Manual) APTT Heparin Anti-Xa Level ABG pH POC ABG pCO2 POC ABG pO2 ABG Hemoglobin ABG Oxyhemoglobin ABG Sodium ABG Potassium ABG Chloride ABG Glucose Carboxyhemoglobin Sodium Potassium 3.4 L Chloride BUN Creatinine Glucose 126 H POC Glucose 69 L Lactic Acid Calcium Phosphorus AST 129 H ALT 60 H Troponin T C-Reactive Protein Albumin 3.7 L HDL Cholesterol Arterial Blood Glucose Arterial Blood Ionized Calcium Urine WBC (Auto) 09/29/20 09/29/20 09/29/20 04:00 05:53 08:39 WBC RBC Hgb 10.0 L Hct MCV MCH RDW Plt Count Lymph % (Auto) [place] % (Auto) Lymph # (Auto) [place] # (Auto) Eos # (Auto) Seg Neutrophils % Seg Neuts % (Manual) Monocytes % (Manual) Eosinophils % (Manual) Seg Neutrophils # Seg Neutrophils # Man Lymphocytes # (Manual) Monocytes # (Manual) Eosinophils # (Manual) APTT Heparin Anti-Xa Level ABG pH POC ABG pCO2 POC ABG pO2 81.1 L ABG Hemoglobin 11.0 L ABG Oxyhemoglobin ABG Sodium ABG Potassium ABG Chloride 110.0 H ABG Glucose 129 H Carboxyhemoglobin Sodium Potassium Chloride BUN Creatinine Glucose POC Glucose 58 L Lactic Acid Calcium Phosphorus AST ALT Troponin T C-Reactive Protein Albumin HDL Cholesterol Arterial Blood Glucose 129 H Arterial Blood Ionized Calcium Urine WBC (Auto) 09/30/20 09/30/20 09/30/20 00:10 10:45 15:05 WBC 12.5 H RBC Hgb 9.9 L Hct MCV 78 L MCH 24 L RDW 21.0 H Plt Count Lymph % (Auto) [place] % (Auto) 13.5 H Lymph # (Auto) [place] # (Auto) 1.7 H Eos # (Auto) Seg Neutrophils % Seg Neuts % (Manual) Monocytes % (Manual) Eosinophils % (Manual) Seg Neutrophils # 8.1 H Seg Neutrophils # Man Lymphocytes # (Manual) Monocytes # (Manual) Eosinophils # (Manual) APTT Heparin Anti-Xa Level ABG pH 7.469 H POC ABG pCO2 POC ABG pO2 ABG Hemoglobin 10.4 L ABG Oxyhemoglobin ABG Sodium 146.2 H ABG Potassium ABG Chloride 109.0 H ABG Glucose 155 H Carboxyhemoglobin Sodium Potassium Chloride BUN Creatinine Glucose POC Glucose 131 H Lactic Acid Calcium Phosphorus AST ALT Troponin T C-Reactive Protein Albumin HDL Cholesterol Arterial Blood Glucose 155 H Arterial Blood Ionized Calcium Urine WBC (Auto) 09/30/20 09/30/20 10/01/20 15:05 17:37 00:29 WBC RBC Hgb Hct MCV MCH RDW Plt Count Lymph % (Auto) [place] % (Auto) Lymph # (Auto) [place] # (Auto) Eos # (Auto) Seg Neutrophils % Seg Neuts % (Manual) Monocytes % (Manual) Eosinophils % (Manual) Seg Neutrophils # Seg Neutrophils # Man Lymphocytes # (Manual) Monocytes # (Manual) Eosinophils # (Manual) APTT Heparin Anti-Xa Level ABG pH POC ABG pCO2 POC ABG pO2 ABG Hemoglobin ABG Oxyhemoglobin ABG Sodium ABG Potassium ABG Chloride ABG Glucose Carboxyhemoglobin Sodium Potassium Chloride 109.1 H BUN 18 H Creatinine 1.4 H Glucose 122 H POC Glucose 127 H 119 H Lactic Acid Calcium Phosphorus 2.00 L AST ALT Troponin T C-Reactive Protein Albumin HDL Cholesterol Arterial Blood Glucose Arterial Blood Ionized Calcium Urine WBC (Auto) 10/01/20 10/01/20 10/01/20 04:12 05:56 05:56 WBC 14.2 H RBC Hgb 9.7 L Hct MCV 78 L MCH 23 L RDW 21.1 H Plt Count Lymph % (Auto) [place] % (Auto) Lymph # (Auto) [place] # (Auto) Eos # (Auto) Seg Neutrophils % Seg Neuts % (Manual) Monocytes % (Manual) Eosinophils % (Manual) Seg Neutrophils # Seg Neutrophils # Man Lymphocytes # (Manual) Monocytes # (Manual) Eosinophils # (Manual) APTT Heparin Anti-Xa Level ABG pH POC ABG pCO2 POC ABG pO2 73.0 L ABG Hemoglobin 10.0 L ABG Oxyhemoglobin 93.7 L ABG Sodium 146.4 H ABG Potassium ABG Chloride 110.0 H ABG Glucose 124 H Carboxyhemoglobin 0.3 L Sodium 147 H Potassium Chloride 109.6 H BUN Creatinine Glucose 109 H POC Glucose Lactic Acid Calcium Phosphorus AST ALT Troponin T C-Reactive Protein Albumin HDL Cholesterol Arterial Blood Glucose 124 H Arterial Blood Ionized Calcium Urine WBC (Auto) 10/01/20 10/01/20 10/02/20 19:21 23:17 05:27 WBC RBC Hgb Hct MCV MCH RDW Plt Count Lymph % (Auto) [place] % (Auto) Lymph # (Auto) [place] # (Auto) Eos # (Auto) Seg Neutrophils % Seg Neuts % (Manual) Monocytes % (Manual) Eosinophils % (Manual) Seg Neutrophils # Seg Neutrophils # Man Lymphocytes # (Manual) Monocytes # (Manual) Eosinophils # (Manual) APTT Heparin Anti-Xa Level ABG pH POC ABG pCO2 POC ABG pO2 ABG Hemoglobin ABG Oxyhemoglobin ABG Sodium ABG Potassium ABG Chloride ABG Glucose Carboxyhemoglobin Sodium Potassium Chloride BUN Creatinine Glucose POC Glucose 126 H 160 H 121 H Lactic Acid Calcium Phosphorus AST ALT Troponin T C-Reactive Protein Albumin HDL Cholesterol Arterial Blood Glucose Arterial Blood Ionized Calcium Urine WBC (Auto) 10/02/20 10/02/20 10/02/20 06:48 06:48 11:51 WBC 14.2 H RBC Hgb 9.6 L Hct MCV MCH 25 L RDW 21.7 H Plt Count Lymph % (Auto) [place] % (Auto) Lymph # (Auto) [place] # (Auto) Eos # (Auto) Seg Neutrophils % Seg Neuts % (Manual) Monocytes % (Manual) Eosinophils % (Manual) Seg Neutrophils # Seg Neutrophils # Man Lymphocytes # (Manual) Monocytes # (Manual) Eosinophils # (Manual) APTT Heparin Anti-Xa Level ABG pH POC ABG pCO2 POC ABG pO2 ABG Hemoglobin ABG Oxyhemoglobin ABG Sodium ABG Potassium ABG Chloride ABG Glucose Carboxyhemoglobin Sodium 147 H Potassium Chloride 110.4 H BUN Creatinine Glucose 134 H POC Glucose 121 H Lactic Acid Calcium Phosphorus 2.20 L AST ALT Troponin T C-Reactive Protein Albumin HDL Cholesterol Arterial Blood Glucose Arterial Blood Ionized Calcium Urine WBC (Auto) 10/02/20 10/03/20 10/03/20 17:19 00:35 07:24 WBC 12.9 H RBC Hgb 8.9 L Hct 29.6 L MCV MCH 24 L RDW 21.9 H Plt Count Lymph % (Auto) [place] % (Auto) Lymph # (Auto) [place] # (Auto) Eos # (Auto) Seg Neutrophils % Seg Neuts % (Manual) Monocytes % (Manual) Eosinophils % (Manual) Seg Neutrophils # Seg Neutrophils # Man Lymphocytes # (Manual) Monocytes # (Manual) Eosinophils # (Manual) APTT Heparin Anti-Xa Level ABG pH POC ABG pCO2 POC ABG pO2 ABG Hemoglobin ABG Oxyhemoglobin ABG Sodium ABG Potassium ABG Chloride ABG Glucose Carboxyhemoglobin Sodium Potassium Chloride BUN Creatinine Glucose POC Glucose 107 H 112 H Lactic Acid Calcium Phosphorus AST ALT Troponin T C-Reactive Protein Albumin HDL Cholesterol Arterial Blood Glucose Arterial Blood Ionized Calcium Urine WBC (Auto) 10/03/20 10/03/20 10/03/20 07:24 17:27 20:19 WBC RBC Hgb Hct MCV MCH RDW Plt Count Lymph % (Auto) [place] % (Auto) Lymph # (Auto) [place] # (Auto) Eos # (Auto) Seg Neutrophils % Seg Neuts % (Manual) Monocytes % (Manual) Eosinophils % (Manual) Seg Neutrophils # Seg Neutrophils # Man Lymphocytes # (Manual) Monocytes # (Manual) Eosinophils # (Manual) APTT Heparin Anti-Xa Level 0.18 L ABG pH POC ABG pCO2 POC ABG pO2 ABG Hemoglobin ABG Oxyhemoglobin ABG Sodium ABG Potassium ABG Chloride ABG Glucose Carboxyhemoglobin Sodium 147 H Potassium Chloride 110.4 H BUN Creatinine Glucose 128 H POC Glucose 136 H Lactic Acid Calcium Phosphorus AST ALT Troponin T C-Reactive Protein Albumin HDL Cholesterol Arterial Blood Glucose Arterial Blood Ionized Calcium Urine WBC (Auto) 10/03/20 10/04/20 10/04/20 23:34 04:07 06:12 WBC RBC Hgb Hct MCV MCH RDW Plt Count Lymph % (Auto) [place] % (Auto) Lymph # (Auto) [place] # (Auto) Eos # (Auto) Seg Neutrophils % Seg Neuts % (Manual) Monocytes % (Manual) Eosinophils % (Manual) Seg Neutrophils # Seg Neutrophils # Man Lymphocytes # (Manual) Monocytes # (Manual) Eosinophils # (Manual) APTT Heparin Anti-Xa Level 0.25 L ABG pH POC ABG pCO2 POC ABG pO2 ABG Hemoglobin ABG Oxyhemoglobin ABG Sodium ABG Potassium ABG Chloride ABG Glucose Carboxyhemoglobin Sodium Potassium Chloride BUN Creatinine Glucose POC Glucose 119 H 128 H Lactic Acid Calcium Phosphorus AST ALT Troponin T C-Reactive Protein Albumin HDL Cholesterol Arterial Blood Glucose Arterial Blood Ionized Calcium Urine WBC (Auto) 10/04/20 10/04/20 10/05/20 11:38 17:39 00:17 WBC RBC Hgb Hct MCV MCH RDW Plt Count Lymph % (Auto) [place] % (Auto) Lymph # (Auto) [place] # (Auto) Eos # (Auto) Seg Neutrophils % Seg Neuts % (Manual) Monocytes % (Manual) Eosinophils % (Manual) Seg Neutrophils # Seg Neutrophils # Man Lymphocytes # (Manual) Monocytes # (Manual) Eosinophils # (Manual) APTT Heparin Anti-Xa Level ABG pH POC ABG pCO2 POC ABG pO2 ABG Hemoglobin ABG Oxyhemoglobin ABG Sodium ABG Potassium ABG Chloride ABG Glucose Carboxyhemoglobin Sodium Potassium Chloride BUN Creatinine Glucose POC Glucose 129 H 136 H 125 H Lactic Acid Calcium Phosphorus AST ALT Troponin T C-Reactive Protein Albumin HDL Cholesterol Arterial Blood Glucose Arterial Blood Ionized Calcium Urine WBC (Auto) 10/05/20 10/05/20 10/05/20 04:17 04:17 05:31 WBC 13.0 H RBC Hgb 9.1 L Hct 29.5 L MCV MCH 25 L RDW 22.2 H Plt Count Lymph % (Auto) [place] % (Auto) Lymph # (Auto) [place] # (Auto) Eos # (Auto) Seg Neutrophils % Seg Neuts % (Manual) Monocytes % (Manual) Eosinophils % (Manual) Seg Neutrophils # Seg Neutrophils # Man Lymphocytes # (Manual) Monocytes # (Manual) Eosinophils # (Manual) APTT Heparin Anti-Xa Level ABG pH POC ABG pCO2 POC ABG pO2 ABG Hemoglobin ABG Oxyhemoglobin ABG Sodium ABG Potassium ABG Chloride ABG Glucose Carboxyhemoglobin Sodium Potassium Chloride BUN Creatinine Glucose 148 H POC Glucose 160 H Lactic Acid Calcium Phosphorus AST ALT Troponin T C-Reactive Protein Albumin HDL Cholesterol Arterial Blood Glucose Arterial Blood Ionized Calcium Urine WBC (Auto) 10/05/20 10/05/20 10/05/20 12:09 17:33 23:30 WBC RBC Hgb Hct MCV MCH RDW Plt Count Lymph % (Auto) [place] % (Auto) Lymph # (Auto) [place] # (Auto) Eos # (Auto) Seg Neutrophils % Seg Neuts % (Manual) Monocytes % (Manual) Eosinophils % (Manual) Seg Neutrophils # Seg Neutrophils # Man Lymphocytes # (Manual) Monocytes # (Manual) Eosinophils # (Manual) APTT Heparin Anti-Xa Level ABG pH POC ABG pCO2 POC ABG pO2 ABG Hemoglobin ABG Oxyhemoglobin ABG Sodium ABG Potassium ABG Chloride ABG Glucose Carboxyhemoglobin Sodium Potassium Chloride BUN Creatinine Glucose POC Glucose 148 H 135 H 142 H Lactic Acid Calcium Phosphorus AST ALT Troponin T C-Reactive Protein Albumin HDL Cholesterol Arterial Blood Glucose Arterial Blood Ionized Calcium Urine WBC (Auto) 10/06/20 10/06/20 10/06/20 04:37 05:35 10:55 WBC RBC Hgb Hct MCV MCH RDW Plt Count Lymph % (Auto) [place] % (Auto) Lymph # (Auto) [place] # (Auto) Eos # (Auto) Seg Neutrophils % Seg Neuts % (Manual) Monocytes % (Manual) Eosinophils % (Manual) Seg Neutrophils # Seg Neutrophils # Man Lymphocytes # (Manual) Monocytes # (Manual) Eosinophils # (Manual) APTT Heparin Anti-Xa Level ABG pH POC ABG pCO2 POC ABG pO2 ABG Hemoglobin ABG Oxyhemoglobin ABG Sodium ABG Potassium ABG Chloride ABG Glucose Carboxyhemoglobin Sodium 136 L Potassium Chloride BUN Creatinine Glucose 184 H POC Glucose 151 H 163 H Lactic Acid Calcium Phosphorus AST 66 H ALT Troponin T C-Reactive Protein Albumin 3.3 L HDL Cholesterol Arterial Blood Glucose Arterial Blood Ionized Calcium Urine WBC (Auto) 10/06/20 10/06/20 10/07/20 16:41 23:31 05:24 WBC RBC Hgb Hct MCV MCH RDW Plt Count Lymph % (Auto) [place] % (Auto) Lymph # (Auto) [place] # (Auto) Eos # (Auto) Seg Neutrophils % Seg Neuts % (Manual) Monocytes % (Manual) Eosinophils % (Manual) Seg Neutrophils # Seg Neutrophils # Man Lymphocytes # (Manual) Monocytes # (Manual) Eosinophils # (Manual) APTT Heparin Anti-Xa Level ABG pH POC ABG pCO2 POC ABG pO2 ABG Hemoglobin ABG Oxyhemoglobin ABG Sodium ABG Potassium ABG Chloride ABG Glucose Carboxyhemoglobin Sodium Potassium Chloride BUN Creatinine Glucose POC Glucose 156 H 190 H 194 H Lactic Acid Calcium Phosphorus AST ALT Troponin T C-Reactive Protein Albumin HDL Cholesterol Arterial Blood Glucose Arterial Blood Ionized Calcium Urine WBC (Auto) 10/07/20 10/07/20 10/07/20 11:48 17:50 18:12 WBC 15.7 H RBC Hgb 9.2 L Hct 30.1 L MCV MCH 25 L RDW 24.1 H Plt Count 514 H Lymph % (Auto) [place] % (Auto) Lymph # (Auto) [place] # (Auto) Eos # (Auto) Seg Neutrophils % Seg Neuts % (Manual) 71.0 H Monocytes % (Manual) Eosinophils % (Manual) 5.0 H Seg Neutrophils # Seg Neutrophils # Man 11.1 H Lymphocytes # (Manual) Monocytes # (Manual) 1.1 H Eosinophils # (Manual) 0.8 H APTT Heparin Anti-Xa Level ABG pH POC ABG pCO2 POC ABG pO2 ABG Hemoglobin ABG Oxyhemoglobin ABG Sodium ABG Potassium ABG Chloride ABG Glucose Carboxyhemoglobin Sodium Potassium Chloride BUN Creatinine Glucose POC Glucose 203 H 191 H Lactic Acid Calcium Phosphorus AST ALT Troponin T C-Reactive Protein Albumin HDL Cholesterol Arterial Blood Glucose Arterial Blood Ionized Calcium Urine WBC (Auto) 10/07/20 10/08/20 10/08/20 23:40 04:22 04:22 WBC 15.2 H RBC Hgb 9.6 L Hct MCV MCH 24 L RDW 23.3 H Plt Count 517 H Lymph % (Auto) [place] % (Auto) Lymph # (Auto) [place] # (Auto) Eos # (Auto) Seg Neutrophils % Seg Neuts % (Manual) Monocytes % (Manual) Eosinophils % (Manual) Seg Neutrophils # Seg Neutrophils # Man Lymphocytes # (Manual) Monocytes # (Manual) Eosinophils # (Manual) APTT Heparin Anti-Xa Level ABG pH POC ABG pCO2 POC ABG pO2 ABG Hemoglobin ABG Oxyhemoglobin ABG Sodium ABG Potassium ABG Chloride ABG Glucose Carboxyhemoglobin Sodium Potassium Chloride BUN 18 H Creatinine Glucose 150 H POC Glucose 191 H Lactic Acid Calcium 10.3 H Phosphorus AST 63 H ALT Troponin T C-Reactive Protein Albumin HDL Cholesterol Arterial Blood Glucose Arterial Blood Ionized Calcium Urine WBC (Auto) 10/08/20 10/08/20 10/08/20 05:41 11:53 16:17 WBC RBC Hgb Hct MCV MCH RDW Plt Count Lymph % (Auto) [place] % (Auto) Lymph # (Auto) [place] # (Auto) Eos # (Auto) Seg Neutrophils % Seg Neuts % (Manual) Monocytes % (Manual) Eosinophils % (Manual) Seg Neutrophils # Seg Neutrophils # Man Lymphocytes # (Manual) Monocytes # (Manual) Eosinophils # (Manual) APTT Heparin Anti-Xa Level ABG pH POC ABG pCO2 POC ABG pO2 ABG Hemoglobin ABG Oxyhemoglobin ABG Sodium ABG Potassium ABG Chloride ABG Glucose Carboxyhemoglobin Sodium Potassium Chloride BUN Creatinine Glucose POC Glucose 125 H 116 H 141 H Lactic Acid Calcium Phosphorus AST ALT Troponin T C-Reactive Protein Albumin HDL Cholesterol Arterial Blood Glucose Arterial Blood Ionized Calcium Urine WBC (Auto) 10/08/20 10/09/20 10/09/20 23:24 04:07 04:07 WBC 14.2 H RBC Hgb 9.6 L Hct MCV MCH 24 L RDW 23.5 H Plt Count 543 H Lymph % (Auto) [place] % (Auto) 10.4 H Lymph # (Auto) [place] # (Auto) 1.5 H Eos # (Auto) Seg Neutrophils % 70.9 H Seg Neuts % (Manual) Monocytes % (Manual) Eosinophils % (Manual) Seg Neutrophils # 10.1 H Seg Neutrophils # Man Lymphocytes # (Manual) Monocytes # (Manual) Eosinophils # (Manual) APTT Heparin Anti-Xa Level ABG pH POC ABG pCO2 POC ABG pO2 ABG Hemoglobin ABG Oxyhemoglobin ABG Sodium ABG Potassium ABG Chloride ABG Glucose Carboxyhemoglobin Sodium Potassium Chloride BUN 18 H Creatinine Glucose 152 H POC Glucose 114 H Lactic Acid Calcium Phosphorus AST ALT Troponin T C-Reactive Protein Albumin HDL Cholesterol Arterial Blood Glucose Arterial Blood Ionized Calcium Urine WBC (Auto) 10/09/20 10/09/20 10/10/20 11:51 17:35 00:15 WBC RBC Hgb Hct MCV MCH RDW Plt Count Lymph % (Auto) [place] % (Auto) Lymph # (Auto) [place] # (Auto) Eos # (Auto) Seg Neutrophils % Seg Neuts % (Manual) Monocytes % (Manual) Eosinophils % (Manual) Seg Neutrophils # Seg Neutrophils # Man Lymphocytes # (Manual) Monocytes # (Manual) Eosinophils # (Manual) APTT Heparin Anti-Xa Level ABG pH POC ABG pCO2 POC ABG pO2 ABG Hemoglobin ABG Oxyhemoglobin ABG Sodium ABG Potassium ABG Chloride ABG Glucose Carboxyhemoglobin Sodium Potassium Chloride BUN Creatinine Glucose POC Glucose 134 H 139 H 184 H Lactic Acid Calcium Phosphorus AST ALT Troponin T C-Reactive Protein Albumin HDL Cholesterol Arterial Blood Glucose Arterial Blood Ionized Calcium Urine WBC (Auto) 10/10/20 10/10/20 10/10/20 03:42 03:42 05:45 WBC 14.5 H RBC 3.62 L Hgb 9.1 L Hct 29.2 L MCV MCH 25 L RDW 24.2 H Plt Count 540 H Lymph % (Auto) [place] % (Auto) 13.6 H Lymph # (Auto) [place] # (Auto) 2.0 H Eos # (Auto) Seg Neutrophils % Seg Neuts % (Manual) Monocytes % (Manual) Eosinophils % (Manual) Seg Neutrophils # 9.3 H Seg Neutrophils # Man Lymphocytes # (Manual) Monocytes # (Manual) Eosinophils # (Manual) APTT Heparin Anti-Xa Level ABG pH POC ABG pCO2 POC ABG pO2 ABG Hemoglobin ABG Oxyhemoglobin ABG Sodium ABG Potassium ABG Chloride ABG Glucose Carboxyhemoglobin Sodium 132 L Potassium Chloride 97.4 L BUN 23 H Creatinine Glucose 190 H POC Glucose 213 H Lactic Acid Calcium Phosphorus AST ALT Troponin T C-Reactive Protein Albumin HDL Cholesterol Arterial Blood Glucose Arterial Blood Ionized Calcium Urine WBC (Auto) 10/10/20 10/10/20 10/10/20 12:05 17:51 23:37 WBC RBC Hgb Hct MCV MCH RDW Plt Count Lymph % (Auto) [place] % (Auto) Lymph # (Auto) [place] # (Auto) Eos # (Auto) Seg Neutrophils % Seg Neuts % (Manual) Monocytes % (Manual) Eosinophils % (Manual) Seg Neutrophils # Seg Neutrophils # Man Lymphocytes # (Manual) Monocytes # (Manual) Eosinophils # (Manual) APTT Heparin Anti-Xa Level ABG pH POC ABG pCO2 POC ABG pO2 ABG Hemoglobin ABG Oxyhemoglobin ABG Sodium ABG Potassium ABG Chloride ABG Glucose Carboxyhemoglobin Sodium Potassium Chloride BUN Creatinine Glucose POC Glucose 199 H 170 H 225 H Lactic Acid Calcium Phosphorus AST ALT Troponin T C-Reactive Protein Albumin HDL Cholesterol Arterial Blood Glucose Arterial Blood Ionized Calcium Urine WBC (Auto) 10/11/20 10/11/20 10/11/20 05:02 11:45 17:08 WBC RBC Hgb Hct MCV MCH RDW Plt Count Lymph % (Auto) [place] % (Auto) Lymph # (Auto) [place] # (Auto) Eos # (Auto) Seg Neutrophils % Seg Neuts % (Manual) Monocytes % (Manual) Eosinophils % (Manual) Seg Neutrophils # Seg Neutrophils # Man Lymphocytes # (Manual) Monocytes # (Manual) Eosinophils # (Manual) APTT Heparin Anti-Xa Level ABG pH POC ABG pCO2 POC ABG pO2 ABG Hemoglobin ABG Oxyhemoglobin ABG Sodium ABG Potassium ABG Chloride ABG Glucose Carboxyhemoglobin Sodium Potassium Chloride BUN Creatinine Glucose POC Glucose 190 H 209 H 177 H Lactic Acid Calcium Phosphorus AST ALT Troponin T C-Reactive Protein Albumin HDL Cholesterol Arterial Blood Glucose Arterial Blood Ionized Calcium Urine WBC (Auto) 10/12/20 10/12/20 10/12/20 00:57 05:18 05:18 WBC 24.0 H RBC Hgb 9.4 L Hct 30.0 L MCV MCH 26 L RDW 23.9 H Plt Count 467 H Lymph % (Auto) [place] % (Auto) Lymph # (Auto) [place] # (Auto) Eos # (Auto) Seg Neutrophils % Seg Neuts % (Manual) Monocytes % (Manual) 8.0 H Eosinophils % (Manual) Seg Neutrophils # Seg Neutrophils # Man 0.0 L Lymphocytes # (Manual) 0.0 L Monocytes # (Manual) Eosinophils # (Manual) APTT Heparin Anti-Xa Level ABG pH POC ABG pCO2 POC ABG pO2 ABG Hemoglobin ABG Oxyhemoglobin ABG Sodium ABG Potassium ABG Chloride ABG Glucose Carboxyhemoglobin Sodium Potassium 5.1 H D Chloride BUN 20 H Creatinine Glucose 183 H POC Glucose 176 H Lactic Acid Calcium Phosphorus AST ALT Troponin T C-Reactive Protein Albumin HDL Cholesterol Arterial Blood Glucose Arterial Blood Ionized Calcium Urine WBC (Auto) 10/12/20 10/12/20 10/12/20 05:52 11:20 17:37 WBC RBC Hgb Hct MCV MCH RDW Plt Count Lymph % (Auto) [place] % (Auto) Lymph # (Auto) [place] # (Auto) Eos # (Auto) Seg Neutrophils % Seg Neuts % (Manual) Monocytes % (Manual) Eosinophils % (Manual) Seg Neutrophils # Seg Neutrophils # Man Lymphocytes # (Manual) Monocytes # (Manual) Eosinophils # (Manual) APTT Heparin Anti-Xa Level ABG pH POC ABG pCO2 POC ABG pO2 ABG Hemoglobin ABG Oxyhemoglobin ABG Sodium ABG Potassium ABG Chloride ABG Glucose Carboxyhemoglobin Sodium Potassium Chloride BUN Creatinine Glucose POC Glucose 167 H 179 H 150 H Lactic Acid Calcium Phosphorus AST ALT Troponin T C-Reactive Protein Albumin HDL Cholesterol Arterial Blood Glucose Arterial Blood Ionized Calcium Urine WBC (Auto) 10/13/20 10/13/20 10/13/20 00:06 05:31 11:09 WBC 14.3 H RBC 3.42 L Hgb 8.8 L Hct 27.8 L MCV MCH 26 L RDW 24.4 H Plt Count Lymph % (Auto) [place] % (Auto) Lymph # (Auto) [place] # (Auto) Eos # (Auto) Seg Neutrophils % Seg Neuts % (Manual) Monocytes % (Manual) Eosinophils % (Manual) Seg Neutrophils # Seg Neutrophils # Man Lymphocytes # (Manual) Monocytes # (Manual) Eosinophils # (Manual) APTT Heparin Anti-Xa Level ABG pH POC ABG pCO2 POC ABG pO2 ABG Hemoglobin ABG Oxyhemoglobin ABG Sodium ABG Potassium ABG Chloride ABG Glucose Carboxyhemoglobin Sodium Potassium Chloride BUN Creatinine Glucose POC Glucose 181 H 178 H Lactic Acid Calcium Phosphorus AST ALT Troponin T C-Reactive Protein Albumin HDL Cholesterol Arterial Blood Glucose Arterial Blood Ionized Calcium Urine WBC (Auto) 10/13/20 10/13/20 10/13/20 11:09 11:28 17:41 WBC RBC Hgb Hct MCV MCH RDW Plt Count Lymph % (Auto) [place] % (Auto) Lymph # (Auto) [place] # (Auto) Eos # (Auto) Seg Neutrophils % Seg Neuts % (Manual) Monocytes % (Manual) Eosinophils % (Manual) Seg Neutrophils # Seg Neutrophils # Man Lymphocytes # (Manual) Monocytes # (Manual) Eosinophils # (Manual) APTT Heparin Anti-Xa Level ABG pH POC ABG pCO2 POC ABG pO2 ABG Hemoglobin ABG Oxyhemoglobin ABG Sodium ABG Potassium ABG Chloride ABG Glucose Carboxyhemoglobin Sodium Potassium Chloride BUN 25 H Creatinine Glucose 207 H POC Glucose 209 H 167 H Lactic Acid Calcium 10.3 H Phosphorus AST ALT Troponin T C-Reactive Protein Albumin HDL Cholesterol Arterial Blood Glucose Arterial Blood Ionized Calcium Urine WBC (Auto) 10/13/20 10/14/20 10/14/20 23:43 05:46 10:54 WBC RBC Hgb Hct MCV MCH RDW Plt Count Lymph % (Auto) [place] % (Auto) Lymph # (Auto) [place] # (Auto) Eos # (Auto) Seg Neutrophils % Seg Neuts % (Manual) Monocytes % (Manual) Eosinophils % (Manual) Seg Neutrophils # Seg Neutrophils # Man Lymphocytes # (Manual) Monocytes # (Manual) Eosinophils # (Manual) APTT Heparin Anti-Xa Level ABG pH POC ABG pCO2 POC ABG pO2 ABG Hemoglobin ABG Oxyhemoglobin ABG Sodium ABG Potassium ABG Chloride ABG Glucose Carboxyhemoglobin Sodium Potassium Chloride BUN Creatinine Glucose POC Glucose 162 H 152 H 142 H Lactic Acid Calcium Phosphorus AST ALT Troponin T C-Reactive Protein Albumin HDL Cholesterol Arterial Blood Glucose Arterial Blood Ionized Calcium Urine WBC (Auto) 10/14/20 10/15/20 10/15/20 17:59 00:10 04:56 WBC 13.8 H RBC 3.29 L Hgb 8.4 L Hct 26.8 L MCV MCH 26 L RDW 24.5 H Plt Count Lymph % (Auto) [place] % (Auto) 8.4 H Lymph # (Auto) [place] # (Auto) 1.2 H Eos # (Auto) 0.5 H Seg Neutrophils % Seg Neuts % (Manual) Monocytes % (Manual) Eosinophils % (Manual) Seg Neutrophils # 9.3 H Seg Neutrophils # Man Lymphocytes # (Manual) Monocytes # (Manual) Eosinophils # (Manual) APTT Heparin Anti-Xa Level ABG pH POC ABG pCO2 POC ABG pO2 ABG Hemoglobin ABG Oxyhemoglobin ABG Sodium ABG Potassium ABG Chloride ABG Glucose Carboxyhemoglobin Sodium Potassium Chloride BUN Creatinine Glucose POC Glucose 131 H 163 H Lactic Acid Calcium Phosphorus AST ALT Troponin T C-Reactive Protein Albumin HDL Cholesterol Arterial Blood Glucose Arterial Blood Ionized Calcium Urine WBC (Auto) 10/15/20 10/15/20 04:56 12:13 WBC RBC Hgb Hct MCV MCH RDW Plt Count Lymph % (Auto) [place] % (Auto) Lymph # (Auto) [place] # (Auto) Eos # (Auto) Seg Neutrophils % Seg Neuts % (Manual) Monocytes % (Manual) Eosinophils % (Manual) Seg Neutrophils # Seg Neutrophils # Man Lymphocytes # (Manual) Monocytes # (Manual) Eosinophils # (Manual) APTT Heparin Anti-Xa Level ABG pH POC ABG pCO2 POC ABG pO2 ABG Hemoglobin ABG Oxyhemoglobin ABG Sodium ABG Potassium ABG Chloride ABG Glucose Carboxyhemoglobin Sodium Potassium Chloride BUN Creatinine Glucose 163 H POC Glucose 154 H Lactic Acid Calcium Phosphorus AST ALT Troponin T C-Reactive Protein Albumin HDL Cholesterol Arterial Blood Glucose Arterial Blood Ionized Calcium Urine WBC (Auto) Chest x-ray: other (none today) Allied health notes reviewed: nursing
--- NOTE | 2020-10-15 14:12 | Progress Note ---
Assessment and Plan --Acute encephalopathy sp cardiac arrest; due to anoxic brain injury; MRI/ EEG - see report; concerned for anoxic injury neurology has seen poor prognosis case management working with family on d/c plan Status post trach in place placement; pt is a full code at this time --hx seizure disorder keppra BID PRN ativan modafinil daily no movement to noxious stimuli -hx htn; -hx dilated REPORT PROGRAMMER/NSTEMI SR, asa daily coreg and cozar scheduled RN should hold BP meds for MAP <65 PRN labetolol echo LVEF 20-25 I/O follow electrolytes and replace as needed AM labs ordered -Acute hypoxic resp failure sp cardiac arrest Patient ventilated with mechanical ventilation gen surg consulted for trach --GERD pepcid scopolamine patch every 72 hours ordered standing --Constipation gen surg consult for PEG last recorded BM 10-03 bowel reg senna tolerating TF --Febrile illness with intermittent temps intermittent temps ? neuro etiology trend temp and WBC curve last cultures on 10/12 no antibiotics at this time --Morbid obesity avoid hypoglycemia currently on no SSI- continue to monitor for need with inc in TF rate Disposition Plan: LTC v home with family Total Time Spent with Patient (Minutes): 60 Brief history: 45-year-old female with obesity hypoventilation syndrome and GERD who presented to the emergency department on 09/25/20 s/p cardiac arrest via EMS. Per EMS staff they were notified for shortness of breath and upon arrival patient was found to be in distress and subsequently went into cardiac arrest and she was treated in accordance to ACLS protocol and intubated in the field and transported to [facility]. Evaluation in the emergency department upon arrival to the emergency department patient was found to have pe rsistent hypoxic respiratory failure and was maintained on ventilator support. Work-up revealed sepsis, pneumonia, seizure disorder, metabolic acidosis as well as NSTEMI. Cardiology, neurology, CCM were consulted. Daily clinical course: 09/26/20: Patient was admitted with out of the hospital cardiac arrest status post CPR per ACLS protocols Anoxic brain injury, unresponsive Orally intubated on ventilatory support Vital signs reviewed. called patient's aunt , STAN Minor at [phone] and discussed in detail, patient's condition, tests and reports, consu ltants recommendations, poor prognosis, treatment plan[explained in detail the medications and their role in the treatment] pending tests. 09/27/2020; patient remains unresponsive, intubated on ventilatory support Follow neurology evaluation and recommendations 10/01: Patient has persistent leukocytosis and hyperchloremia. Patient now has hypernatremia and renal function has improved to CR/BUN 1.115 from 1.08/04. Patient has hypophosphatemia which was repleted yesterday and we will obtain a.m . labs. Patient has MRI brain pending. Family updated by neurology over the phone and NEONATAL DOCTOR at bedside. Patient niece was at bedside today and she will defer goals of care decision after MRI results. EEG findings were explained. According to her the patient was in found to be unresponsive by family and was given bystander CPR before arrival of EMS. 10/02: Patient received MRI brain today which showed diffuse cerebral restricted diffusion consistent with global anoxic brain injury, no associated hemorrhage or herniation and additional small acute lacunar infarct in the right paracentral lesia. 10/03: Cardiology will follow the patient peripherally given poor prognosis, Dr. Alvarado and has spoken to the family regarding prognosis today. Given hypotension patient will receive lower doses of blood pressure medicine and per social director request a referral to [facility]. 10/04: Patient bilateral Doppler ultrasound are negative and heparin drip has been stopped. [facility] referral made by CM which was denied. Family is aware. No acute events reported overnight. Patient family was at bedside and updated by neurologist. Explained to them that pt. is not brain but is with significant brain injury, she is off sedation for a week with no clear changes in her clinical presentation. 10/05: Today patient is no longer hypernatremic so free water flushes were resume at the rate nutrition as ordered. Decrease in Cozaar today patient's T-max 100.7 which was responsive to Tylenol. At the time examination patient is on assist control tidal volume 450, rate of 12, PEEP of 6 and 25% FiO2. Patient will be tried on a CPAP trial today. 10/06/2020: No family at the bedside, spoke with critical care, patient was opening her eyes but continues to be encephalopathic. Patient on cefepime, will get pro-Kareem, if negative, DC antibiotics. Continues to be on CPAP and intubated. 10/07: No significant change clinically, patient remains on mechanical ventilation. discussed LT plan with Aunt and she is wanting a trach/peg and to take pt home with her; pt is a full code at this time. 10/08: General surgery consulted for trach and PEG placement. Patient remains on mechanical ventilation with diffuse anoxic brain injury status post cardiac arrest. Continue supportive care monitor clinically. Patient is full code very poor prognosis. 10/09/20; patient remains on ventilator with trach tube, started on tube feeding with PEG. Continue supportive care, vital stable. delicatessen store manager working on placement. 10/10/20: Patient mechanically ventilated with trach tube. Tolerating tube feeding. delicatessen store manager working on placement. Very poor prognosis need long-term placement. 10/11/20; patient remains mechanically ventilated via trach tube. Critical care working on to wean off from the vent. Very poor prognosis. Continue supportive care and pending placement. 10/12/20; patient intermittently spiking fever. Order for stat blood culture, UA and chest x-ray. Patient also has elevated white count, monitor off antibiotics for now till culture results available. Patient on CPAP with a trach tube. Discussed plan of care patient's aunt at bedside. I explained to family that patient still with guarded prognosis and poor chance for recovery from diffuse anoxic brain injury. 10/13/20: Patient noted to be hypotensive today, will initiate IV fluid. Chest x -ray yesterday showed no infiltrate, UA normal. Blood culture 24-hour showing no growth. Temperature trended down and currently appears to be normal. Will hold BP meds and will follow clinically. Family at the bedside, updated. 10/14/20: all Cx negative, BP stable with gentle hydration, intermittently spiking fever. started on midodrine. if cont to spike fever will consult ID. family at bedside and updated 10/15/20: Continue monitor off antibiotics, patient intermittently still spiking fever. Consult ID for further recommendation. Monitor CBC and BMP. Subjective Date of service: 10/15/20 Principal diagnosis: Cardiac arrest; Ac. respiratory failure; Anoxic encephalopathy; PNA; NSTEMI Interval history: Patient seen and examined. Medical records and medication list reviewed. No acute event overnight noted by the RN. Patient on ventilator with trach tube, started on tube feeding with newly placed PEG tube delicatessen store manager working on placement BP stable today, intermittently spiking fever Discussed with patient's aunt at bedside -updated with all clinical details Objective - Exam Narrative Exam: General appearance: Present: no acute distress, well-nourished, other (not responsive ) - EENT ENT: clear oral mucosa - Neck Neck: Present: supple, normal ROM, trach in place - Respiratory Respiratory effort: normal - Cardiovascular Rhythm: regular Heart Sounds: Present: S1 & S2 Peripheral Pulses: within normal limits - Abdominal General gastrointestinal: soft, non-tender, PEG in place - Integumentary Integumentary: Present: clear, warm, dry - Allied Health Allied health notes reviewed: nursing, case management - Constitutional Vitals: Vital Signs - 12hr 10/15/20 10/15/20 10/15/20 02:30 03:00 03:30 Temperature Pulse Rate 108 H 108 H 110 H Pulse Rate [ From Monitor] Respiratory 27 H 12 16 Rate Blood Pressure 141/77 139/71 139/71 O2 Sat by Pulse 100 97 100 Oximetry O2 Sat by Pulse Oximetry [ Assessment] 10/15/20 10/15/20 10/15/20 04:00 04:16 04:29 Temperature 101.4 F H Pulse Rate 111 H 113 H Pulse Rate [ From Monitor] Respiratory 15 Rate Blood Pressure 131/63 131/63 O2 Sat by Pulse 100 100 Oximetry O2 Sat by Pulse 98 Oximetry [ Assessment] 10/15/20 10/15/20 10/15/20 04:30 05:00 05:30 Temperature Pulse Rate 114 H 112 H 109 H Pulse Rate [ From Monitor] Respiratory 18 24 27 H Rate Blood Pressure 119/71 119/70 123/72 O2 Sat by Pulse 97 98 98 Oximetry O2 Sat by Pulse Oximetry [ Assessment] 10/15/20 10/15/20 10/15/20 06:00 06:30 07:00 Temperature Pulse Rate 108 H 105 H Pulse Rate [ From Monitor] Respiratory 29 H 16 Rate Blood Pressure 136/75 145/73 145/73 O2 Sat by Pulse 97 96 100 Oximetry O2 Sat by Pulse Oximetry [ Assessment] 10/15/20 10/15/20 10/15/20 07:30 07:51 07:55 Temperature Pulse Rate 102 H 106 H 105 H Pulse Rate [ From Monitor] Respiratory 22 22 Rate Blood Pressure 126/65 117/60 117/60 O2 Sat by Pulse 99 100 99 Oximetry O2 Sat by Pulse Oximetry [ Assessment] 10/15/20 10/15/20 10/15/20 08:00 08:29 08:30 Temperature 99.1 F Pulse Rate 105 H 105 H 105 H Pulse Rate [ 105 H From Monitor] Respiratory 20 21 21 Rate Blood Pressure 117/60 134/62 O2 Sat by Pulse 100 99 99 Oximetry O2 Sat by Pulse Oximetry [ Assessment] 10/15/20 10/15/20 10/15/20 09:00 09:30 10:00 Temperature Pulse Rate 107 H 105 H 110 H Pulse Rate [ From Monitor] Respiratory 23 22 24 Rate Blood Pressure 121/50 115/51 129/63 O2 Sat by Pulse 99 99 100 Oximetry O2 Sat by Pulse Oximetry [ Assessment] 10/15/20 10/15/20 10/15/20 10:30 11:00 11:30 Temperature Pulse Rate 108 H 106 H 105 H Pulse Rate [ From Monitor] Respiratory 20 30 H 16 Rate Blood Pressure 129/63 117/60 119/58 O2 Sat by Pulse 99 98 96 Oximetry O2 Sat by Pulse Oximetry [ Assessment] 10/15/20 10/15/20 10/15/20 11:41 11:42 12:00 Temperature 98.4 F Pulse Rate 106 H 103 H Pulse Rate [ From Monitor] Respiratory 24 29 H Rate Blood Pressure 119/58 124/58 O2 Sat by Pulse 96 96 96 Oximetry O2 Sat by Pulse Oximetry [ Assessment] 10/15/20 10/15/20 10/15/20 12:07 12:30 13:00 Temperature Pulse Rate 104 H 103 H 102 H Pulse Rate [ 104 H From Monitor] Respiratory 32 H 33 H 28 H Rate Blood Pressure 109/51 121/59 O2 Sat by Pulse 96 96 96 Oximetry O2 Sat by Pulse Oximetry [ Assessment] 10/15/20 13:30 Temperature Pulse Rate 104 H Pulse Rate [ From Monitor] Respiratory 30 H Rate Blood Pressure 112/51 O2 Sat by Pulse 97 Oximetry O2 Sat by Pulse Oximetry [ Assessment] - Labs CBC & Chem 7: 10/16/20 04:45 10/16/20 04:45 Labs: Abnormal lab results 10/14/20 10/15/20 10/15/20 Range/Units 17:59 00:10 04:56 WBC 13.8 H (4.5-11.0) K/mm3 RBC 3.29 L (3.65-5.03) M/mm3 Hgb 8.4 L (10.1-14.3) gm/dl Hct 26.8 L (30.3-42.9) % MCH 26 L (28-32) pg RDW 24.5 H (13.2-15.2) % [place] % (Auto) 8.4 H (0.0-7.3) % [place] # (Auto) 1.2 H (0.0-0.8) K/mm3 Eos # (Auto) 0.5 H (0.0-0.4) K/mm3 Seg Neutrophils # 9.3 H (1.8-7.7) K/mm3 Glucose (65-100) mg/dL POC Glucose 131 H 163 H (70-105) mg/dL 10/15/20 10/15/20 Range/Units 04:56 12:13 WBC (4.5-11.0) K/mm3 RBC (3.65-5.03) M/mm3 Hgb (10.1-14.3) gm/dl Hct (30.3-42.9) % MCH (28-32) pg RDW (13.2-15.2) % [place] % (Auto) (0.0-7.3) % [place] # (Auto) (0.0-0.8) K/mm3 Eos # (Auto) (0.0-0.4) K/mm3 Seg Neutrophils # (1.8-7.7) K/mm3 Glucose 163 H (65-100) mg/dL POC Glucose 154 H (70-105) mg/dL HEART Score - HEART Score EKG: Normal Age: 45-65 Risk factors: No known risk factors Troponin: Troponin T < 0.010 ng/mL (0.00-0.029) 10/02/20 06:48 Troponin: < normal limit - Critical Actions Critical Actions: 0-3 pts:0.9-1.7%risk of adverse cardiac event.Candidate for discharge
[2020-10-15] MEDS: SENNOSIDES 8.6 MG TAB PO SCH (22:33)
[2020-10-16 04:57] LABS: Basophils # (Auto) 0.1 K/mm3 (0.0-0.1); Basophils % (Auto) 0.5 % (0.0-1.8); Eosinophils # (Auto) 0.6 K/mm3 (0.0-0.4); Eosinophils % (Auto) 5.4 % (0.0-4.3); Hematocrit 28.5 % (30.3-42.9); Hemoglobin 8.9 gm/dl (10.1-14.3); Lymphocytes # (Auto) 2.4 K/mm3 (1.2-5.4); Lymphocytes % (Auto) 22.5 % (13.4-35.0); Mean Corpuscular HGB Conc 31 % (30-34); Mean Corpuscular Volume 82 fl (79-97); Monocytes % (Auto) 9.6 % (0.0-7.3); Platelet Count 401 K/mm3 (140-440); Red Blood Count 3.47 M/mm3 (3.65-5.03)
[2020-10-16 05:05] LABS: Red Cell Distribution Width 24.4 % (13.2-15.2)
[2020-10-16 05:17] LABS: Blood Urea Nitrogen 15 mg/dL (7-17); Calcium 9.9 mg/dL (8.4-10.2); Hemolysis Index 46
[2020-10-16 05:20] LABS: BUN/Creatinine Ratio 30
[2020-10-16] MEDS: HEPARIN 5,000 UNIT/1 ML VIAL SUB-Q SCH ×3 (06:13→21:39)
[2020-10-16] MEDS: INSULIN LISPRO 100 UNIT/ML SUB-Q SCH ×4 (06:14→18:41)
[2020-10-16] MEDS: MIDODRINE 5 MG TAB PO SCH ×3 (09:00→16:27)
[2020-10-16] MEDS: ASPIRIN 81 MG TAB CHEW PO SCH (09:27)
[2020-10-16] MEDS: FAMOTIDINE 20 MG TAB PO SCH ×2 (09:28→21:39)
[2020-10-16] MEDS: MODAFINIL 100 MG TAB PO SCH (09:28)
[2020-10-16] MEDS: carvediloL 3.125 MG TAB PO SCH (09:28)
[2020-10-16] MEDS: ACETAMINOPHEN 325 MG/10.15 ML ORAL LIQD UNIT DOSE FEEDTUBE PRN (09:29)
[2020-10-16] MEDS: levETIRAcetam 500 MG/5 ML ORAL LIQD PO SCH ×2 (09:29→21:39)
--- NOTE | 2020-10-16 11:49 | Progress Note ---
Assessment and Plan Cultures: COVID-19 PCR: Negative 09/25/2020 urine culture: No growth 09/25/2020 blood culture: No growth 10/12/2020 blood culture: No growth A/P: 45-year-old female with morbid obesity, obesity hypoventilation, gastroesophageal reflux disease admitted to the hospital on 09/25/2020 after a cardiac arrest requiring ACLS protocol, she has been in ICU, on mechanical ventilation. Believed to have underlying anoxic brain injury based on MRI. She is status post tracheostomy tube and PEG tube placements: #Intermittent febrile illness: UA, chest x-ray and blood cultures not consistent with infection. MRI with evidence of anoxic brain injury. Central fever is a possibility. Continue to hold off on antibiotics at this point. Procal on 10/06/2020 was low. #Acute hypoxic/anoxic encephalopathy #Acute respiratory failure: s/p trach #Morbid obesity Recs: -Continue off antibiotics for now -Overall poor prognosis, remains at risk of several infectious complications including pneumonia, UTI, decubitus ulcers Manasa Maki MD, FACP [facility] ([facility] O: [phone] F: [phone] Subjective Date of service: 10/16/20 Principal diagnosis: Cardiac arrest; Ac. respiratory failure; Anoxic encephalopathy; PNA; NSTEMI Interval history: Low grade fever. Unresponsive. WBC down. Objective - Exam Narrative Exam: Physical Exam: Constitutional: Unresponsive on the vent Head, Ears, Nose: Normocephalic, atraumatic. External ears, nose normal Eyes: Conjunctivae/corneas clear. No icterus. No ptosis. Neck: Trach Cardiovascular: S1, S2 + Respiratory: AE fair bilaterally and equal GI: Soft, bowel sounds +, G-tube + Musculoskeletal: No pedal edema, no cyanosis. Skin: No rash or abscess Hem/Lymphatic: No palpable cervical or supraclavicular nodes. No lymphangitis Psych: no agitation Neurological: Unresponsive, on the vent, exam limited - Constitutional Vitals: Vital Signs Temp Pulse Resp BP Pulse Ox 100.0 F H 117 H 27 H 131/67 97 10/16/20 07:15 10/16/20 11:00 10/16/20 11:00 10/16/20 11:00 10/16/20 11:00 Temperature -Last 24 Hours Temperature 100.0 F Temperature 99.7 F Temperature 99.6 F Temperature 99.2 F Temperature 98.9 F Temperature 98.9 F Temperature 98.4 F - Labs CBC & Chem 7: 10/16/20 04:45 10/16/20 04:45 Labs: Abnormal lab results 10/15/20 10/15/20 10/15/20 Range/Units 12:13 17:29 23:20 RBC (3.65-5.03) M/mm3 Hgb (10.1-14.3) gm/dl Hct (30.3-42.9) % MCH (28-32) pg RDW (13.2-15.2) % [place] % (Auto) (0.0-7.3) % Eos % (Auto) (0.0-4.3) % [place] # (Auto) (0.0-0.8) K/mm3 Eos # (Auto) (0.0-0.4) K/mm3 Creatinine (0.6-1.2) mg/dL Glucose (65-100) mg/dL POC Glucose 154 H 141 H 136 H (70-105) mg/dL 10/16/20 10/16/20 10/16/20 Range/Units 04:45 04:45 05:23 RBC 3.47 L (3.65-5.03) M/mm3 Hgb 8.9 L (10.1-14.3) gm/dl Hct 28.5 L (30.3-42.9) % MCH 26 L (28-32) pg RDW 24.4 H (13.2-15.2) % [place] % (Auto) 9.6 H (0.0-7.3) % Eos % (Auto) 5.4 H (0.0-4.3) % [place] # (Auto) 1.0 H (0.0-0.8) K/mm3 Eos # (Auto) 0.6 H (0.0-0.4) K/mm3 Creatinine 0.5 L (0.6-1.2) mg/dL Glucose 138 H (65-100) mg/dL POC Glucose 114 H (70-105) mg/dL 10/16/20 Range/Units 11:38 RBC (3.65-5.03) M/mm3 Hgb (10.1-14.3) gm/dl Hct (30.3-42.9) % MCH (28-32) pg RDW (13.2-15.2) % [place] % (Auto) (0.0-7.3) % Eos % (Auto) (0.0-4.3) % [place] # (Auto) (0.0-0.8) K/mm3 Eos # (Auto) (0.0-0.4) K/mm3 Creatinine (0.6-1.2) mg/dL Glucose (65-100) mg/dL POC Glucose 177 H (70-105) mg/dL
[2020-10-16] MEDS: HYDROmorphone 1 MG/1 ML INJ IV PRN (13:10)
--- NOTE | 2020-10-16 13:33 | Progress Note ---
Assessment and Plan Cardiac arrest with return of spontaneous circulation. Acute respiratory failure, on mechanical ventilatory support. Acute toxic metabolic encephalopathy. Possible anoxic encephalopathy. Obesity. History of obesity hypoventilation syndrome. Leukocytosis. Likely aspiration pneumonia, bilateral. Anemia that is microcytic. Lactic acidosis. Elevated serum transaminases. Non-ST elevation myocardial infarction - shoot for RTC t-piece henceforth - resume midodrine with hold parameters for SBP > 120 mmHg - increased Coreg to 6.25mg bid re: CMOP - place 25 alaina's/hr fentanyl patch as heart rate improved with prn dilaudid earlier - get ABG at 10 pm tonight to assess ventilation - LTAC / SNF evaluation ongoing - continue care as below otherwise; - continue Daily SAT and SBT assessment as tolerated - continue scopolamine patch for secretion control - continue to wean supplemental oxygen for target O2 sat's > 90% acutely - VAP bundle addressed - continue lung protective strategies - continue bronchodilators with pulmonary hygiene per RT - wean per pulmonary driven protocols otherwise - continue accuchecks with glycemic control per SSI (While critically ill target blood glucose of 140-180 mg/dL; avoid hypoglycemia) - sedation prn for target RASS 0 to -1 - avoid nephrotoxins, renally dose all medications - continue to avoid benzodiazepine's, reduce the possibility of delirium - completed AB's per ID rec's - prn analgesia per CPOT score - Maintenance of sleep-wake cycle, avoid delirium - continue enteral nutritional support at goal rate as tolerated - G.I. & VTE prophylaxis - PT/OT/ROM exercises - continue mobility protocols for pressure ulcer prophylaxis - Monitor hemodynamics closely - continue other care per attending / other consultants - discharge planning ongoing concurrently COVID SPECIFIC INTERVENTIONS - COVID tests result was negative .... Re-evaluate in am & prn CONDITION: CRITICAL PROGNOSIS: GUARDED CODE STATUS: FULL CODE The high probability of a clinically significant, sudden or life-threatening deterioration of the [respiratory, cardiovascular & neurologic] system(s) required my full and direct attention, intervention and personal management. The aggregate critical care time was [35] minutes without overlap. Time includes spent on; [x] Data Review and interpretation [x] Patient assessment and monitoring of vital signs [x] Documentation [x] Medication orders and management Subjective Date of service: 10/16/20 Principal diagnosis: Cardiac arrest; Ac. respiratory failure; Anoxic encephalopathy; PNA; NSTEMI Interval history: Patient is seen today for: Cardiac arrest with ROSC; Acute respiratory failure; Anoxic encephalopathy; Obesity; OHS; Aspiration pneumonia; NSTEMI Seen and examined at bedside; 24hour events reviewed; nursing and respiratory care staff consulted; no adverse overnight events reported to me; resting in bed; rested on MVS overnight but tolerated t-piece the whole day long; she has had some low grade tachycardia to the 120's today; AMS is persistent and family visited Objective Vital Signs - 12hr 10/16/20 10/16/20 10/16/20 02:00 02:31 03:00 Temperature Pulse Rate 104 H 103 H Pulse Rate [ From Monitor] Pulse Rate [ Right Dorsalis Pedis] Respiratory 12 12 Rate Blood Pressure 141/55 128/53 128/53 O2 Sat by Pulse 100 99 100 Oximetry O2 Sat by Pulse Oximetry [ Assessment] 10/16/20 10/16/20 10/16/20 03:30 03:38 04:00 Temperature 99.7 F H Pulse Rate 104 H 104 H Pulse Rate [ From Monitor] Pulse Rate [ 105 H Right Dorsalis Pedis] Respiratory 13 12 Rate Blood Pressure 136/72 129/64 O2 Sat by Pulse 100 100 Oximetry O2 Sat by Pulse Oximetry [ Assessment] 10/16/20 10/16/20 10/16/20 04:23 04:31 05:00 Temperature Pulse Rate 108 H 112 H 105 H Pulse Rate [ From Monitor] Pulse Rate [ Right Dorsalis Pedis] Respiratory 15 16 Rate Blood Pressure 129/64 145/67 129/68 O2 Sat by Pulse 98 93 100 Oximetry O2 Sat by Pulse Oximetry [ Assessment] 10/16/20 10/16/20 10/16/20 05:19 05:30 06:00 Temperature Pulse Rate 105 H 107 H Pulse Rate [ From Monitor] Pulse Rate [ Right Dorsalis Pedis] Respiratory 17 15 Rate Blood Pressure 135/69 142/68 O2 Sat by Pulse 100 98 Oximetry O2 Sat by Pulse 100 Oximetry [ Assessment] 10/16/20 10/16/20 10/16/20 06:30 07:01 07:15 Temperature 100.0 F H Pulse Rate 108 H 117 H Pulse Rate [ From Monitor] Pulse Rate [ Right Dorsalis Pedis] Respiratory 18 12 Rate Blood Pressure 146/66 146/77 O2 Sat by Pulse 99 98 Oximetry O2 Sat by Pulse Oximetry [ Assessment] 10/16/20 10/16/20 10/16/20 07:30 08:00 08:30 Temperature Pulse Rate 117 H 121 H 123 H Pulse Rate [ 123 H From Monitor] Pulse Rate [ Right Dorsalis Pedis] Respiratory 17 17 18 Rate Blood Pressure 139/72 132/73 137/63 O2 Sat by Pulse 100 100 100 Oximetry O2 Sat by Pulse Oximetry [ Assessment] 10/16/20 10/16/20 10/16/20 08:55 08:56 09:00 Temperature Pulse Rate 122 H 121 H Pulse Rate [ From Monitor] Pulse Rate [ Right Dorsalis Pedis] Respiratory 21 Rate Blood Pressure 137/63 132/64 O2 Sat by Pulse 100 100 100 Oximetry O2 Sat by Pulse Oximetry [ Assessment] 10/16/20 10/16/20 10/16/20 09:28 09:30 10:00 Temperature Pulse Rate 122 H 121 H 124 H Pulse Rate [ From Monitor] Pulse Rate [ Right Dorsalis Pedis] Respiratory 23 28 H Rate Blood Pressure 132/64 144/65 143/59 O2 Sat by Pulse 100 99 Oximetry O2 Sat by Pulse Oximetry [ Assessment] 10/16/20 10/16/20 10/16/20 10:30 11:00 11:30 Temperature Pulse Rate 123 H 117 H 112 H Pulse Rate [ From Monitor] Pulse Rate [ Right Dorsalis Pedis] Respiratory 29 H 27 H 28 H Rate Blood Pressure 131/67 131/67 121/55 O2 Sat by Pulse 97 97 96 Oximetry O2 Sat by Pulse Oximetry [ Assessment] 10/16/20 10/16/20 10/16/20 11:53 12:00 12:22 Temperature 99.8 F H Pulse Rate 110 H 112 H Pulse Rate [ 113 H From Monitor] Pulse Rate [ Right Dorsalis Pedis] Respiratory 30 H Rate Blood Pressure 114/56 114/56 O2 Sat by Pulse 97 97 Oximetry O2 Sat by Pulse Oximetry [ Assessment] 10/16/20 12:24 Temperature Pulse Rate Pulse Rate [ From Monitor] Pulse Rate [ Right Dorsalis Pedis] Respiratory Rate Blood Pressure O2 Sat by Pulse Oximetry O2 Sat by Pulse 97 Oximetry [ Assessment] Constitutional: no acute distress, other (middle aged obese female with mildly increased respiratory effort at rest ) Eyes: non-icteric ENT: oropharynx moist, other (+ midline tracheostomy) Neck: supple, no lymphadenopathy, no JVD Effort: mildly labored Ascultation: Bilateral: rhonchi (scant) Percussion: Bilateral: not dull Cardiovascular: regular rate and rhythm, other (S1,S2) Gastrointestinal: normoactive bowel sounds, soft, non-tender, non-distended Integumentary: normal Extremities: no cyanosis, no edema, pulses normal, no ischemia or petechiae Neurologic: pupils equal and round, unable to assess Psychiatric: other (unable to assess re: AMS) CBC and BMP: 10/16/20 04:45 10/16/20 04:45 ABG, PT/INR, D-dimer: ABG ABG pH 7.424 (7.320-7.450) 10/01/20 04:12 POC ABG pCO2 41.6 mmHg (32.0-48.0) 10/01/20 04:12 POC ABG pO2 73.0 mmHg (83-108) L 10/01/20 04:12 POC ABG HCO3 26.6 10/01/20 04:12 ABG O2 Saturation 94.3 (0-100) 10/01/20 04:12 PT/INR, D-dimer PT 13.7 Sec. (12.2-14.9) 09/25/20 18:15 INR 1.00 (0.87-1.13) 09/25/20 18:15 Abnormal lab findings: Abnormal Labs 09/25/20 09/25/20 09/25/20 17:19 17:21 18:15 WBC 13.8 H RBC Hgb 9.9 L Hct MCV 76 L MCH 23 L RDW 17.9 H Plt Count Lymph % (Auto) [place] % (Auto) Eos % (Auto) Lymph # (Auto) [place] # (Auto) Eos # (Auto) Seg Neutrophils % 78.6 H Seg Neuts % (Manual) Monocytes % (Manual) Eosinophils % (Manual) Seg Neutrophils # 10.8 H Seg Neutrophils # Man Lymphocytes # (Manual) Monocytes # (Manual) Eosinophils # (Manual) APTT Heparin Anti-Xa Level ABG pH POC ABG pCO2 26.2 L POC ABG pO2 554.5 H ABG Hemoglobin 9.0 L ABG Oxyhemoglobin 99.0 H ABG Sodium 134.5 L ABG Potassium ABG Chloride ABG Glucose 220 H Carboxyhemoglobin Sodium Potassium Chloride BUN Creatinine Glucose POC Glucose Lactic Acid Calcium Phosphorus AST ALT Troponin T C-Reactive Protein Albumin HDL Cholesterol Arterial Blood Glucose 220 H Arterial Blood Ionized Calcium 4.2 L Urine WBC (Auto) 14.0 H 09/25/20 09/25/20 09/25/20 18:15 18:15 18:15 WBC RBC Hgb Hct MCV MCH RDW Plt Count Lymph % (Auto) [place] % (Auto) Eos % (Auto) Lymph # (Auto) [place] # (Auto) Eos # (Auto) Seg Neutrophils % Seg Neuts % (Manual) Monocytes % (Manual) Eosinophils % (Manual) Seg Neutrophils # Seg Neutrophils # Man Lymphocytes # (Manual) Monocytes # (Manual) Eosinophils # (Manual) APTT 21.1 L Heparin Anti-Xa Level ABG pH POC ABG pCO2 POC ABG pO2 ABG Hemoglobin ABG Oxyhemoglobin ABG Sodium ABG Potassium ABG Chloride ABG Glucose Carboxyhemoglobin Sodium Potassium Chloride BUN Creatinine Glucose 113 H POC Glucose Lactic Acid 2.60 H* Calcium Phosphorus AST 162 H ALT 131 H Troponin T 0.096 H C-Reactive Protein Albumin HDL Cholesterol Arterial Blood Glucose Arterial Blood Ionized Calcium Urine WBC (Auto) 09/25/20 09/25/20 09/26/20 23:13 23:13 03:15 WBC RBC Hgb Hct MCV MCH RDW Plt Count Lymph % (Auto) [place] % (Auto) Eos % (Auto) Lymph # (Auto) [place] # (Auto) Eos # (Auto) Seg Neutrophils % Seg Neuts % (Manual) Monocytes % (Manual) Eosinophils % (Manual) Seg Neutrophils # Seg Neutrophils # Man Lymphocytes # (Manual) Monocytes # (Manual) Eosinophils # (Manual) APTT Heparin Anti-Xa Level ABG pH 7.451 H POC ABG pCO2 27.1 L POC ABG pO2 ABG Hemoglobin 10.4 L ABG Oxyhemoglobin ABG Sodium 135.2 L ABG Potassium ABG Chloride 108.0 H ABG Glucose 137 H Carboxyhemoglobin Sodium Potassium Chloride BUN Creatinine Glucose POC Glucose Lactic Acid 2.90 H* Calcium Phosphorus AST ALT Troponin T 0.170 H* D C-Reactive Protein Albumin HDL Cholesterol 60 H Arterial Blood Glucose 137 H Arterial Blood Ionized Calcium 4.2 L Urine WBC (Auto) 09/26/20 09/26/20 09/26/20 05:09 05:09 05:09 WBC 15.8 H RBC Hgb 10.0 L Hct MCV 77 L MCH 24 L RDW 17.8 H Plt Count Lymph % (Auto) 7.2 L [place] % (Auto) Eos % (Auto) Lymph # (Auto) 1.1 L [place] # (Auto) 1.0 H Eos # (Auto) Seg Neutrophils % 86.1 H Seg Neuts % (Manual) Monocytes % (Manual) Eosinophils % (Manual) Seg Neutrophils # 13.6 H Seg Neutrophils # Man Lymphocytes # (Manual) Monocytes # (Manual) Eosinophils # (Manual) APTT Heparin Anti-Xa Level ABG pH POC ABG pCO2 POC ABG pO2 ABG Hemoglobin ABG Oxyhemoglobin ABG Sodium ABG Potassium ABG Chloride ABG Glucose Carboxyhemoglobin Sodium Potassium Chloride BUN Creatinine Glucose 114 H POC Glucose Lactic Acid 2.40 H* Calcium 8.1 L Phosphorus AST 112 H ALT 103 H Troponin T C-Reactive Protein Albumin 3.8 L HDL Cholesterol Arterial Blood Glucose Arterial Blood Ionized Calcium Urine WBC (Auto) 09/26/20 09/27/20 09/27/20 15:45 03:33 04:41 WBC RBC Hgb 9.0 L Hct 28.6 L MCV MCH RDW Plt Count Lymph % (Auto) [place] % (Auto) Eos % (Auto) Lymph # (Auto) [place] # (Auto) Eos # (Auto) Seg Neutrophils % Seg Neuts % (Manual) Monocytes % (Manual) Eosinophils % (Manual) Seg Neutrophils # Seg Neutrophils # Man Lymphocytes # (Manual) Monocytes # (Manual) Eosinophils # (Manual) APTT Heparin Anti-Xa Level ABG pH POC ABG pCO2 POC ABG pO2 141.6 H ABG Hemoglobin 9.3 L ABG Oxyhemoglobin ABG Sodium ABG Potassium 3.2 L ABG Chloride 108.0 H ABG Glucose 118 H Carboxyhemoglobin Sodium Potassium Chloride BUN Creatinine Glucose POC Glucose Lactic Acid Calcium Phosphorus 2.20 L AST ALT Troponin T C-Reactive Protein 4.30 H Albumin HDL Cholesterol Arterial Blood Glucose 118 H Arterial Blood Ionized Calcium 4.2 L Urine WBC (Auto) 09/27/20 09/27/20 09/28/20 04:41 22:53 04:00 WBC RBC Hgb Hct MCV MCH RDW Plt Count Lymph % (Auto) [place] % (Auto) Eos % (Auto) Lymph # (Auto) [place] # (Auto) Eos # (Auto) Seg Neutrophils % Seg Neuts % (Manual) Monocytes % (Manual) Eosinophils % (Manual) Seg Neutrophils # Seg Neutrophils # Man Lymphocytes # (Manual) Monocytes # (Manual) Eosinophils # (Manual) APTT Heparin Anti-Xa Level 0.75 H ABG pH 7.467 H POC ABG pCO2 POC ABG pO2 78.9 L ABG Hemoglobin 9.8 L ABG Oxyhemoglobin ABG Sodium ABG Potassium ABG Chloride ABG Glucose 141 H Carboxyhemoglobin Sodium Potassium Chloride BUN Creatinine Glucose POC Glucose 109 H Lactic Acid Calcium Phosphorus AST ALT Troponin T C-Reactive Protein Albumin HDL Cholesterol Arterial Blood Glucose 141 H Arterial Blood Ionized Calcium Urine WBC (Auto) 09/28/20 09/28/20 09/28/20 05:02 05:02 17:42 WBC 11.9 H RBC Hgb 9.3 L Hct 29.5 L MCV 76 L MCH 24 L RDW 19.4 H Plt Count Lymph % (Auto) [place] % (Auto) 11.1 H Eos % (Auto) Lymph # (Auto) [place] # (Auto) 1.3 H Eos # (Auto) Seg Neutrophils % 72.5 H Seg Neuts % (Manual) Monocytes % (Manual) Eosinophils % (Manual) Seg Neutrophils # 8.6 H Seg Neutrophils # Man Lymphocytes # (Manual) Monocytes # (Manual) Eosinophils # (Manual) APTT Heparin Anti-Xa Level ABG pH POC ABG pCO2 POC ABG pO2 ABG Hemoglobin ABG Oxyhemoglobin ABG Sodium ABG Potassium ABG Chloride ABG Glucose Carboxyhemoglobin Sodium Potassium 3.4 L Chloride BUN Creatinine Glucose 126 H POC Glucose 69 L Lactic Acid Calcium Phosphorus AST 129 H ALT 60 H Troponin T C-Reactive Protein Albumin 3.7 L HDL Cholesterol Arterial Blood Glucose Arterial Blood Ionized Calcium Urine WBC (Auto) 09/29/20 09/29/20 09/29/20 04:00 05:53 08:39 WBC RBC Hgb 10.0 L Hct MCV MCH RDW Plt Count Lymph % (Auto) [place] % (Auto) Eos % (Auto) Lymph # (Auto) [place] # (Auto) Eos # (Auto) Seg Neutrophils % Seg Neuts % (Manual) Monocytes % (Manual) Eosinophils % (Manual) Seg Neutrophils # Seg Neutrophils # Man Lymphocytes # (Manual) Monocytes # (Manual) Eosinophils # (Manual) APTT Heparin Anti-Xa Level ABG pH POC ABG pCO2 POC ABG pO2 81.1 L ABG Hemoglobin 11.0 L ABG Oxyhemoglobin ABG Sodium ABG Potassium ABG Chloride 110.0 H ABG Glucose 129 H Carboxyhemoglobin Sodium Potassium Chloride BUN Creatinine Glucose POC Glucose 58 L Lactic Acid Calcium Phosphorus AST ALT Troponin T C-Reactive Protein Albumin HDL Cholesterol Arterial Blood Glucose 129 H Arterial Blood Ionized Calcium Urine WBC (Auto) 09/30/20 09/30/20 09/30/20 00:10 10:45 15:05 WBC 12.5 H RBC Hgb 9.9 L Hct MCV 78 L MCH 24 L RDW 21.0 H Plt Count Lymph % (Auto) [place] % (Auto) 13.5 H Eos % (Auto) Lymph # (Auto) [place] # (Auto) 1.7 H Eos # (Auto) Seg Neutrophils % Seg Neuts % (Manual) Monocytes % (Manual) Eosinophils % (Manual) Seg Neutrophils # 8.1 H Seg Neutrophils # Man Lymphocytes # (Manual) Monocytes # (Manual) Eosinophils # (Manual) APTT Heparin Anti-Xa Level ABG pH 7.469 H POC ABG pCO2 POC ABG pO2 ABG Hemoglobin 10.4 L ABG Oxyhemoglobin ABG Sodium 146.2 H ABG Potassium ABG Chloride 109.0 H ABG Glucose 155 H Carboxyhemoglobin Sodium Potassium Chloride BUN Creatinine Glucose POC Glucose 131 H Lactic Acid Calcium Phosphorus AST ALT Troponin T C-Reactive Protein Albumin HDL Cholesterol Arterial Blood Glucose 155 H Arterial Blood Ionized Calcium Urine WBC (Auto) 09/30/20 09/30/20 10/01/20 15:05 17:37 00:29 WBC RBC Hgb Hct MCV MCH RDW Plt Count Lymph % (Auto) [place] % (Auto) Eos % (Auto) Lymph # (Auto) [place] # (Auto) Eos # (Auto) Seg Neutrophils % Seg Neuts % (Manual) Monocytes % (Manual) Eosinophils % (Manual) Seg Neutrophils # Seg Neutrophils # Man Lymphocytes # (Manual) Monocytes # (Manual) Eosinophils # (Manual) APTT Heparin Anti-Xa Level ABG pH POC ABG pCO2 POC ABG pO2 ABG Hemoglobin ABG Oxyhemoglobin ABG Sodium ABG Potassium ABG Chloride ABG Glucose Carboxyhemoglobin Sodium Potassium Chloride 109.1 H BUN 18 H Creatinine 1.4 H Glucose 122 H POC Glucose 127 H 119 H Lactic Acid Calcium Phosphorus 2.00 L AST ALT Troponin T C-Reactive Protein Albumin HDL Cholesterol Arterial Blood Glucose Arterial Blood Ionized Calcium Urine WBC (Auto) 10/01/20 10/01/20 10/01/20 04:12 05:56 05:56 WBC 14.2 H RBC Hgb 9.7 L Hct MCV 78 L MCH 23 L RDW 21.1 H Plt Count Lymph % (Auto) [place] % (Auto) Eos % (Auto) Lymph # (Auto) [place] # (Auto) Eos # (Auto) Seg Neutrophils % Seg Neuts % (Manual) Monocytes % (Manual) Eosinophils % (Manual) Seg Neutrophils # Seg Neutrophils # Man Lymphocytes # (Manual) Monocytes # (Manual) Eosinophils # (Manual) APTT Heparin Anti-Xa Level ABG pH POC ABG pCO2 POC ABG pO2 73.0 L ABG Hemoglobin 10.0 L ABG Oxyhemoglobin 93.7 L ABG Sodium 146.4 H ABG Potassium ABG Chloride 110.0 H ABG Glucose 124 H Carboxyhemoglobin 0.3 L Sodium 147 H Potassium Chloride 109.6 H BUN Creatinine Glucose 109 H POC Glucose Lactic Acid Calcium Phosphorus AST ALT Troponin T C-Reactive Protein Albumin HDL Cholesterol Arterial Blood Glucose 124 H Arterial Blood Ionized Calcium Urine WBC (Auto) 10/01/20 10/01/20 10/02/20 19:21 23:17 05:27 WBC RBC Hgb Hct MCV MCH RDW Plt Count Lymph % (Auto) [place] % (Auto) Eos % (Auto) Lymph # (Auto) [place] # (Auto) Eos # (Auto) Seg Neutrophils % Seg Neuts % (Manual) Monocytes % (Manual) Eosinophils % (Manual) Seg Neutrophils # Seg Neutrophils # Man Lymphocytes # (Manual) Monocytes # (Manual) Eosinophils # (Manual) APTT Heparin Anti-Xa Level ABG pH POC ABG pCO2 POC ABG pO2 ABG Hemoglobin ABG Oxyhemoglobin ABG Sodium ABG Potassium ABG Chloride ABG Glucose Carboxyhemoglobin Sodium Potassium Chloride BUN Creatinine Glucose POC Glucose 126 H 160 H 121 H Lactic Acid Calcium Phosphorus AST ALT Troponin T C-Reactive Protein Albumin HDL Cholesterol Arterial Blood Glucose Arterial Blood Ionized Calcium Urine WBC (Auto) 10/02/20 10/02/20 10/02/20 06:48 06:48 11:51 WBC 14.2 H RBC Hgb 9.6 L Hct MCV MCH 25 L RDW 21.7 H Plt Count Lymph % (Auto) [place] % (Auto) Eos % (Auto) Lymph # (Auto) [place] # (Auto) Eos # (Auto) Seg Neutrophils % Seg Neuts % (Manual) Monocytes % (Manual) Eosinophils % (Manual) Seg Neutrophils # Seg Neutrophils # Man Lymphocytes # (Manual) Monocytes # (Manual) Eosinophils # (Manual) APTT Heparin Anti-Xa Level ABG pH POC ABG pCO2 POC ABG pO2 ABG Hemoglobin ABG Oxyhemoglobin ABG Sodium ABG Potassium ABG Chloride ABG Glucose Carboxyhemoglobin Sodium 147 H Potassium Chloride 110.4 H BUN Creatinine Glucose 134 H POC Glucose 121 H Lactic Acid Calcium Phosphorus 2.20 L AST ALT Troponin T C-Reactive Protein Albumin HDL Cholesterol Arterial Blood Glucose Arterial Blood Ionized Calcium Urine WBC (Auto) 10/02/20 10/03/20 10/03/20 17:19 00:35 07:24 WBC 12.9 H RBC Hgb 8.9 L Hct 29.6 L MCV MCH 24 L RDW 21.9 H Plt Count Lymph % (Auto) [place] % (Auto) Eos % (Auto) Lymph # (Auto) [place] # (Auto) Eos # (Auto) Seg Neutrophils % Seg Neuts % (Manual) Monocytes % (Manual) Eosinophils % (Manual) Seg Neutrophils # Seg Neutrophils # Man Lymphocytes # (Manual) Monocytes # (Manual) Eosinophils # (Manual) APTT Heparin Anti-Xa Level ABG pH POC ABG pCO2 POC ABG pO2 ABG Hemoglobin ABG Oxyhemoglobin ABG Sodium ABG Potassium ABG Chloride ABG Glucose Carboxyhemoglobin Sodium Potassium Chloride BUN Creatinine Glucose POC Glucose 107 H 112 H Lactic Acid Calcium Phosphorus AST ALT Troponin T C-Reactive Protein Albumin HDL Cholesterol Arterial Blood Glucose Arterial Blood Ionized Calcium Urine WBC (Auto) 10/03/20 10/03/20 10/03/20 07:24 17:27 20:19 WBC RBC Hgb Hct MCV MCH RDW Plt Count Lymph % (Auto) [place] % (Auto) Eos % (Auto) Lymph # (Auto) [place] # (Auto) Eos # (Auto) Seg Neutrophils % Seg Neuts % (Manual) Monocytes % (Manual) Eosinophils % (Manual) Seg Neutrophils # Seg Neutrophils # Man Lymphocytes # (Manual) Monocytes # (Manual) Eosinophils # (Manual) APTT Heparin Anti-Xa Level 0.18 L ABG pH POC ABG pCO2 POC ABG pO2 ABG Hemoglobin ABG Oxyhemoglobin ABG Sodium ABG Potassium ABG Chloride ABG Glucose Carboxyhemoglobin Sodium 147 H Potassium Chloride 110.4 H BUN Creatinine Glucose 128 H POC Glucose 136 H Lactic Acid Calcium Phosphorus AST ALT Troponin T C-Reactive Protein Albumin HDL Cholesterol Arterial Blood Glucose Arterial Blood Ionized Calcium Urine WBC (Auto) 10/03/20 10/04/20 10/04/20 23:34 04:07 06:12 WBC RBC Hgb Hct MCV MCH RDW Plt Count Lymph % (Auto) [place] % (Auto) Eos % (Auto) Lymph # (Auto) [place] # (Auto) Eos # (Auto) Seg Neutrophils % Seg Neuts % (Manual) Monocytes % (Manual) Eosinophils % (Manual) Seg Neutrophils # Seg Neutrophils # Man Lymphocytes # (Manual) Monocytes # (Manual) Eosinophils # (Manual) APTT Heparin Anti-Xa Level 0.25 L ABG pH POC ABG pCO2 POC ABG pO2 ABG Hemoglobin ABG Oxyhemoglobin ABG Sodium ABG Potassium ABG Chloride ABG Glucose Carboxyhemoglobin Sodium Potassium Chloride BUN Creatinine Glucose POC Glucose 119 H 128 H Lactic Acid Calcium Phosphorus AST ALT Troponin T C-Reactive Protein Albumin HDL Cholesterol Arterial Blood Glucose Arterial Blood Ionized Calcium Urine WBC (Auto) 10/04/20 10/04/20 10/05/20 11:38 17:39 00:17 WBC RBC Hgb Hct MCV MCH RDW Plt Count Lymph % (Auto) [place] % (Auto) Eos % (Auto) Lymph # (Auto) [place] # (Auto) Eos # (Auto) Seg Neutrophils % Seg Neuts % (Manual) Monocytes % (Manual) Eosinophils % (Manual) Seg Neutrophils # Seg Neutrophils # Man Lymphocytes # (Manual) Monocytes # (Manual) Eosinophils # (Manual) APTT Heparin Anti-Xa Level ABG pH POC ABG pCO2 POC ABG pO2 ABG Hemoglobin ABG Oxyhemoglobin ABG Sodium ABG Potassium ABG Chloride ABG Glucose Carboxyhemoglobin Sodium Potassium Chloride BUN Creatinine Glucose POC Glucose 129 H 136 H 125 H Lactic Acid Calcium Phosphorus AST ALT Troponin T C-Reactive Protein Albumin HDL Cholesterol Arterial Blood Glucose Arterial Blood Ionized Calcium Urine WBC (Auto) 10/05/20 10/05/20 10/05/20 04:17 04:17 05:31 WBC 13.0 H RBC Hgb 9.1 L Hct 29.5 L MCV MCH 25 L RDW 22.2 H Plt Count Lymph % (Auto) [place] % (Auto) Eos % (Auto) Lymph # (Auto) [place] # (Auto) Eos # (Auto) Seg Neutrophils % Seg Neuts % (Manual) Monocytes % (Manual) Eosinophils % (Manual) Seg Neutrophils # Seg Neutrophils # Man Lymphocytes # (Manual) Monocytes # (Manual) Eosinophils # (Manual) APTT Heparin Anti-Xa Level ABG pH POC ABG pCO2 POC ABG pO2 ABG Hemoglobin ABG Oxyhemoglobin ABG Sodium ABG Potassium ABG Chloride ABG Glucose Carboxyhemoglobin Sodium Potassium Chloride BUN Creatinine Glucose 148 H POC Glucose 160 H Lactic Acid Calcium Phosphorus AST ALT Troponin T C-Reactive Protein Albumin HDL Cholesterol Arterial Blood Glucose Arterial Blood Ionized Calcium Urine WBC (Auto) 10/05/20 10/05/20 10/05/20 12:09 17:33 23:30 WBC RBC Hgb Hct MCV MCH RDW Plt Count Lymph % (Auto) [place] % (Auto) Eos % (Auto) Lymph # (Auto) [place] # (Auto) Eos # (Auto) Seg Neutrophils % Seg Neuts % (Manual) Monocytes % (Manual) Eosinophils % (Manual) Seg Neutrophils # Seg Neutrophils # Man Lymphocytes # (Manual) Monocytes # (Manual) Eosinophils # (Manual) APTT Heparin Anti-Xa Level ABG pH POC ABG pCO2 POC ABG pO2 ABG Hemoglobin ABG Oxyhemoglobin ABG Sodium ABG Potassium ABG Chloride ABG Glucose Carboxyhemoglobin Sodium Potassium Chloride BUN Creatinine Glucose POC Glucose 148 H 135 H 142 H Lactic Acid Calcium Phosphorus AST ALT Troponin T C-Reactive Protein Albumin HDL Cholesterol Arterial Blood Glucose Arterial Blood Ionized Calcium Urine WBC (Auto) 10/06/20 10/06/20 10/06/20 04:37 05:35 10:55 WBC RBC Hgb Hct MCV MCH RDW Plt Count Lymph % (Auto) [place] % (Auto) Eos % (Auto) Lymph # (Auto) [place] # (Auto) Eos # (Auto) Seg Neutrophils % Seg Neuts % (Manual) Monocytes % (Manual) Eosinophils % (Manual) Seg Neutrophils # Seg Neutrophils # Man Lymphocytes # (Manual) Monocytes # (Manual) Eosinophils # (Manual) APTT Heparin Anti-Xa Level ABG pH POC ABG pCO2 POC ABG pO2 ABG Hemoglobin ABG Oxyhemoglobin ABG Sodium ABG Potassium ABG Chloride ABG Glucose Carboxyhemoglobin Sodium 136 L Potassium Chloride BUN Creatinine Glucose 184 H POC Glucose 151 H 163 H Lactic Acid Calcium Phosphorus AST 66 H ALT Troponin T C-Reactive Protein Albumin 3.3 L HDL Cholesterol Arterial Blood Glucose Arterial Blood Ionized Calcium Urine WBC (Auto) 10/06/20 10/06/20 10/07/20 16:41 23:31 05:24 WBC RBC Hgb Hct MCV MCH RDW Plt Count Lymph % (Auto) [place] % (Auto) Eos % (Auto) Lymph # (Auto) [place] # (Auto) Eos # (Auto) Seg Neutrophils % Seg Neuts % (Manual) Monocytes % (Manual) Eosinophils % (Manual) Seg Neutrophils # Seg Neutrophils # Man Lymphocytes # (Manual) Monocytes # (Manual) Eosinophils # (Manual) APTT Heparin Anti-Xa Level ABG pH POC ABG pCO2 POC ABG pO2 ABG Hemoglobin ABG Oxyhemoglobin ABG Sodium ABG Potassium ABG Chloride ABG Glucose Carboxyhemoglobin Sodium Potassium Chloride BUN Creatinine Glucose POC Glucose 156 H 190 H 194 H Lactic Acid Calcium Phosphorus AST ALT Troponin T C-Reactive Protein Albumin HDL Cholesterol Arterial Blood Glucose Arterial Blood Ionized Calcium Urine WBC (Auto) 10/07/20 10/07/20 10/07/20 11:48 17:50 18:12 WBC 15.7 H RBC Hgb 9.2 L Hct 30.1 L MCV MCH 25 L RDW 24.1 H Plt Count 514 H Lymph % (Auto) [place] % (Auto) Eos % (Auto) Lymph # (Auto) [place] # (Auto) Eos # (Auto) Seg Neutrophils % Seg Neuts % (Manual) 71.0 H Monocytes % (Manual) Eosinophils % (Manual) 5.0 H Seg Neutrophils # Seg Neutrophils # Man 11.1 H Lymphocytes # (Manual) Monocytes # (Manual) 1.1 H Eosinophils # (Manual) 0.8 H APTT Heparin Anti-Xa Level ABG pH POC ABG pCO2 POC ABG pO2 ABG Hemoglobin ABG Oxyhemoglobin ABG Sodium ABG Potassium ABG Chloride ABG Glucose Carboxyhemoglobin Sodium Potassium Chloride BUN Creatinine Glucose POC Glucose 203 H 191 H Lactic Acid Calcium Phosphorus AST ALT Troponin T C-Reactive Protein Albumin HDL Cholesterol Arterial Blood Glucose Arterial Blood Ionized Calcium Urine WBC (Auto) 10/07/20 10/08/20 10/08/20 23:40 04:22 04:22 WBC 15.2 H RBC Hgb 9.6 L Hct MCV MCH 24 L RDW 23.3 H Plt Count 517 H Lymph % (Auto) [place] % (Auto) Eos % (Auto) Lymph # (Auto) [place] # (Auto) Eos # (Auto) Seg Neutrophils % Seg Neuts % (Manual) Monocytes % (Manual) Eosinophils % (Manual) Seg Neutrophils # Seg Neutrophils # Man Lymphocytes # (Manual) Monocytes # (Manual) Eosinophils # (Manual) APTT Heparin Anti-Xa Level ABG pH POC ABG pCO2 POC ABG pO2 ABG Hemoglobin ABG Oxyhemoglobin ABG Sodium ABG Potassium ABG Chloride ABG Glucose Carboxyhemoglobin Sodium Potassium Chloride BUN 18 H Creatinine Glucose 150 H POC Glucose 191 H Lactic Acid Calcium 10.3 H Phosphorus AST 63 H ALT Troponin T C-Reactive Protein Albumin HDL Cholesterol Arterial Blood Glucose Arterial Blood Ionized Calcium Urine WBC (Auto) 10/08/20 10/08/20 10/08/20 05:41 11:53 16:17 WBC RBC Hgb Hct MCV MCH RDW Plt Count Lymph % (Auto) [place] % (Auto) Eos % (Auto) Lymph # (Auto) [place] # (Auto) Eos # (Auto) Seg Neutrophils % Seg Neuts % (Manual) Monocytes % (Manual) Eosinophils % (Manual) Seg Neutrophils # Seg Neutrophils # Man Lymphocytes # (Manual) Monocytes # (Manual) Eosinophils # (Manual) APTT Heparin Anti-Xa Level ABG pH POC ABG pCO2 POC ABG pO2 ABG Hemoglobin ABG Oxyhemoglobin ABG Sodium ABG Potassium ABG Chloride ABG Glucose Carboxyhemoglobin Sodium Potassium Chloride BUN Creatinine Glucose POC Glucose 125 H 116 H 141 H Lactic Acid Calcium Phosphorus AST ALT Troponin T C-Reactive Protein Albumin HDL Cholesterol Arterial Blood Glucose Arterial Blood Ionized Calcium Urine WBC (Auto) 10/08/20 10/09/20 10/09/20 23:24 04:07 04:07 WBC 14.2 H RBC Hgb 9.6 L Hct MCV MCH 24 L RDW 23.5 H Plt Count 543 H Lymph % (Auto) [place] % (Auto) 10.4 H Eos % (Auto) Lymph # (Auto) [place] # (Auto) 1.5 H Eos # (Auto) Seg Neutrophils % 70.9 H Seg Neuts % (Manual) Monocytes % (Manual) Eosinophils % (Manual) Seg Neutrophils # 10.1 H Seg Neutrophils # Man Lymphocytes # (Manual) Monocytes # (Manual) Eosinophils # (Manual) APTT Heparin Anti-Xa Level ABG pH POC ABG pCO2 POC ABG pO2 ABG Hemoglobin ABG Oxyhemoglobin ABG Sodium ABG Potassium ABG Chloride ABG Glucose Carboxyhemoglobin Sodium Potassium Chloride BUN 18 H Creatinine Glucose 152 H POC Glucose 114 H Lactic Acid Calcium Phosphorus AST ALT Troponin T C-Reactive Protein Albumin HDL Cholesterol Arterial Blood Glucose Arterial Blood Ionized Calcium Urine WBC (Auto) 10/09/20 10/09/20 10/10/20 11:51 17:35 00:15 WBC RBC Hgb Hct MCV MCH RDW Plt Count Lymph % (Auto) [place] % (Auto) Eos % (Auto) Lymph # (Auto) [place] # (Auto) Eos # (Auto) Seg Neutrophils % Seg Neuts % (Manual) Monocytes % (Manual) Eosinophils % (Manual) Seg Neutrophils # Seg Neutrophils # Man Lymphocytes # (Manual) Monocytes # (Manual) Eosinophils # (Manual) APTT Heparin Anti-Xa Level ABG pH POC ABG pCO2 POC ABG pO2 ABG Hemoglobin ABG Oxyhemoglobin ABG Sodium ABG Potassium ABG Chloride ABG Glucose Carboxyhemoglobin Sodium Potassium Chloride BUN Creatinine Glucose POC Glucose 134 H 139 H 184 H Lactic Acid Calcium Phosphorus AST ALT Troponin T C-Reactive Protein Albumin HDL Cholesterol Arterial Blood Glucose Arterial Blood Ionized Calcium Urine WBC (Auto) 10/10/20 10/10/20 10/10/20 03:42 03:42 05:45 WBC 14.5 H RBC 3.62 L Hgb 9.1 L Hct 29.2 L MCV MCH 25 L RDW 24.2 H Plt Count 540 H Lymph % (Auto) [place] % (Auto) 13.6 H Eos % (Auto) Lymph # (Auto) [place] # (Auto) 2.0 H Eos # (Auto) Seg Neutrophils % Seg Neuts % (Manual) Monocytes % (Manual) Eosinophils % (Manual) Seg Neutrophils # 9.3 H Seg Neutrophils # Man Lymphocytes # (Manual) Monocytes # (Manual) Eosinophils # (Manual) APTT Heparin Anti-Xa Level ABG pH POC ABG pCO2 POC ABG pO2 ABG Hemoglobin ABG Oxyhemoglobin ABG Sodium ABG Potassium ABG Chloride ABG Glucose Carboxyhemoglobin Sodium 132 L Potassium Chloride 97.4 L BUN 23 H Creatinine Glucose 190 H POC Glucose 213 H Lactic Acid Calcium Phosphorus AST ALT Troponin T C-Reactive Protein Albumin HDL Cholesterol Arterial Blood Glucose Arterial Blood Ionized Calcium Urine WBC (Auto) 10/10/20 10/10/20 10/10/20 12:05 17:51 23:37 WBC RBC Hgb Hct MCV MCH RDW Plt Count Lymph % (Auto) [place] % (Auto) Eos % (Auto) Lymph # (Auto) [place] # (Auto) Eos # (Auto) Seg Neutrophils % Seg Neuts % (Manual) Monocytes % (Manual) Eosinophils % (Manual) Seg Neutrophils # Seg Neutrophils # Man Lymphocytes # (Manual) Monocytes # (Manual) Eosinophils # (Manual) APTT Heparin Anti-Xa Level ABG pH POC ABG pCO2 POC ABG pO2 ABG Hemoglobin ABG Oxyhemoglobin ABG Sodium ABG Potassium ABG Chloride ABG Glucose Carboxyhemoglobin Sodium Potassium Chloride BUN Creatinine Glucose POC Glucose 199 H 170 H 225 H Lactic Acid Calcium Phosphorus AST ALT Troponin T C-Reactive Protein Albumin HDL Cholesterol Arterial Blood Glucose Arterial Blood Ionized Calcium Urine WBC (Auto) 10/11/20 10/11/20 10/11/20 05:02 11:45 17:08 WBC RBC Hgb Hct MCV MCH RDW Plt Count Lymph % (Auto) [place] % (Auto) Eos % (Auto) Lymph # (Auto) [place] # (Auto) Eos # (Auto) Seg Neutrophils % Seg Neuts % (Manual) Monocytes % (Manual) Eosinophils % (Manual) Seg Neutrophils # Seg Neutrophils # Man Lymphocytes # (Manual) Monocytes # (Manual) Eosinophils # (Manual) APTT Heparin Anti-Xa Level ABG pH POC ABG pCO2 POC ABG pO2 ABG Hemoglobin ABG Oxyhemoglobin ABG Sodium ABG Potassium ABG Chloride ABG Glucose Carboxyhemoglobin Sodium Potassium Chloride BUN Creatinine Glucose POC Glucose 190 H 209 H 177 H Lactic Acid Calcium Phosphorus AST ALT Troponin T C-Reactive Protein Albumin HDL Cholesterol Arterial Blood Glucose Arterial Blood Ionized Calcium Urine WBC (Auto) 10/12/20 10/12/20 10/12/20 00:57 05:18 05:18 WBC 24.0 H RBC Hgb 9.4 L Hct 30.0 L MCV MCH 26 L RDW 23.9 H Plt Count 467 H Lymph % (Auto) [place] % (Auto) Eos % (Auto) Lymph # (Auto) [place] # (Auto) Eos # (Auto) Seg Neutrophils % Seg Neuts % (Manual) Monocytes % (Manual) 8.0 H Eosinophils % (Manual) Seg Neutrophils # Seg Neutrophils # Man 0.0 L Lymphocytes # (Manual) 0.0 L Monocytes # (Manual) Eosinophils # (Manual) APTT Heparin Anti-Xa Level ABG pH POC ABG pCO2 POC ABG pO2 ABG Hemoglobin ABG Oxyhemoglobin ABG Sodium ABG Potassium ABG Chloride ABG Glucose Carboxyhemoglobin Sodium Potassium 5.1 H D Chloride BUN 20 H Creatinine Glucose 183 H POC Glucose 176 H Lactic Acid Calcium Phosphorus AST ALT Troponin T C-Reactive Protein Albumin HDL Cholesterol Arterial Blood Glucose Arterial Blood Ionized Calcium Urine WBC (Auto) 10/12/20 10/12/20 10/12/20 05:52 11:20 17:37 WBC RBC Hgb Hct MCV MCH RDW Plt Count Lymph % (Auto) [place] % (Auto) Eos % (Auto) Lymph # (Auto) [place] # (Auto) Eos # (Auto) Seg Neutrophils % Seg Neuts % (Manual) Monocytes % (Manual) Eosinophils % (Manual) Seg Neutrophils # Seg Neutrophils # Man Lymphocytes # (Manual) Monocytes # (Manual) Eosinophils # (Manual) APTT Heparin Anti-Xa Level ABG pH POC ABG pCO2 POC ABG pO2 ABG Hemoglobin ABG Oxyhemoglobin ABG Sodium ABG Potassium ABG Chloride ABG Glucose Carboxyhemoglobin Sodium Potassium Chloride BUN Creatinine Glucose POC Glucose 167 H 179 H 150 H Lactic Acid Calcium Phosphorus AST ALT Troponin T C-Reactive Protein Albumin HDL Cholesterol Arterial Blood Glucose Arterial Blood Ionized Calcium Urine WBC (Auto) 10/13/20 10/13/20 10/13/20 00:06 05:31 11:09 WBC 14.3 H RBC 3.42 L Hgb 8.8 L Hct 27.8 L MCV MCH 26 L RDW 24.4 H Plt Count Lymph % (Auto) [place] % (Auto) Eos % (Auto) Lymph # (Auto) [place] # (Auto) Eos # (Auto) Seg Neutrophils % Seg Neuts % (Manual) Monocytes % (Manual) Eosinophils % (Manual) Seg Neutrophils # Seg Neutrophils # Man Lymphocytes # (Manual) Monocytes # (Manual) Eosinophils # (Manual) APTT Heparin Anti-Xa Level ABG pH POC ABG pCO2 POC ABG pO2 ABG Hemoglobin ABG Oxyhemoglobin ABG Sodium ABG Potassium ABG Chloride ABG Glucose Carboxyhemoglobin Sodium Potassium Chloride BUN Creatinine Glucose POC Glucose 181 H 178 H Lactic Acid Calcium Phosphorus AST ALT Troponin T C-Reactive Protein Albumin HDL Cholesterol Arterial Blood Glucose Arterial Blood Ionized Calcium Urine WBC (Auto) 10/13/20 10/13/20 10/13/20 11:09 11:28 17:41 WBC RBC Hgb Hct MCV MCH RDW Plt Count Lymph % (Auto) [place] % (Auto) Eos % (Auto) Lymph # (Auto) [place] # (Auto) Eos # (Auto) Seg Neutrophils % Seg Neuts % (Manual) Monocytes % (Manual) Eosinophils % (Manual) Seg Neutrophils # Seg Neutrophils # Man Lymphocytes # (Manual) Monocytes # (Manual) Eosinophils # (Manual) APTT Heparin Anti-Xa Level ABG pH POC ABG pCO2 POC ABG pO2 ABG Hemoglobin ABG Oxyhemoglobin ABG Sodium ABG Potassium ABG Chloride ABG Glucose Carboxyhemoglobin Sodium Potassium Chloride BUN 25 H Creatinine Glucose 207 H POC Glucose 209 H 167 H Lactic Acid Calcium 10.3 H Phosphorus AST ALT Troponin T C-Reactive Protein Albumin HDL Cholesterol Arterial Blood Glucose Arterial Blood Ionized Calcium Urine WBC (Auto) 10/13/20 10/14/20 10/14/20 23:43 05:46 10:54 WBC RBC Hgb Hct MCV MCH RDW Plt Count Lymph % (Auto) [place] % (Auto) Eos % (Auto) Lymph # (Auto) [place] # (Auto) Eos # (Auto) Seg Neutrophils % Seg Neuts % (Manual) Monocytes % (Manual) Eosinophils % (Manual) Seg Neutrophils # Seg Neutrophils # Man Lymphocytes # (Manual) Monocytes # (Manual) Eosinophils # (Manual) APTT Heparin Anti-Xa Level ABG pH POC ABG pCO2 POC ABG pO2 ABG Hemoglobin ABG Oxyhemoglobin ABG Sodium ABG Potassium ABG Chloride ABG Glucose Carboxyhemoglobin Sodium Potassium Chloride BUN Creatinine Glucose POC Glucose 162 H 152 H 142 H Lactic Acid Calcium Phosphorus AST ALT Troponin T C-Reactive Protein Albumin HDL Cholesterol Arterial Blood Glucose Arterial Blood Ionized Calcium Urine WBC (Auto) 10/14/20 10/15/20 10/15/20 17:59 00:10 04:56 WBC 13.8 H RBC 3.29 L Hgb 8.4 L Hct 26.8 L MCV MCH 26 L RDW 24.5 H Plt Count Lymph % (Auto) [place] % (Auto) 8.4 H Eos % (Auto) Lymph # (Auto) [place] # (Auto) 1.2 H Eos # (Auto) 0.5 H Seg Neutrophils % Seg Neuts % (Manual) Monocytes % (Manual) Eosinophils % (Manual) Seg Neutrophils # 9.3 H Seg Neutrophils # Man Lymphocytes # (Manual) Monocytes # (Manual) Eosinophils # (Manual) APTT Heparin Anti-Xa Level ABG pH POC ABG pCO2 POC ABG pO2 ABG Hemoglobin ABG Oxyhemoglobin ABG Sodium ABG Potassium ABG Chloride ABG Glucose Carboxyhemoglobin Sodium Potassium Chloride BUN Creatinine Glucose POC Glucose 131 H 163 H Lactic Acid Calcium Phosphorus AST ALT Troponin T C-Reactive Protein Albumin HDL Cholesterol Arterial Blood Glucose Arterial Blood Ionized Calcium Urine WBC (Auto) 10/15/20 10/15/20 10/15/20 04:56 12:13 17:29 WBC RBC Hgb Hct MCV MCH RDW Plt Count Lymph % (Auto) [place] % (Auto) Eos % (Auto) Lymph # (Auto) [place] # (Auto) Eos # (Auto) Seg Neutrophils % Seg Neuts % (Manual) Monocytes % (Manual) Eosinophils % (Manual) Seg Neutrophils # Seg Neutrophils # Man Lymphocytes # (Manual) Monocytes # (Manual) Eosinophils # (Manual) APTT Heparin Anti-Xa Level ABG pH POC ABG pCO2 POC ABG pO2 ABG Hemoglobin ABG Oxyhemoglobin ABG Sodium ABG Potassium ABG Chloride ABG Glucose Carboxyhemoglobin Sodium Potassium Chloride BUN Creatinine Glucose 163 H POC Glucose 154 H 141 H Lactic Acid Calcium Phosphorus AST ALT Troponin T C-Reactive Protein Albumin HDL Cholesterol Arterial Blood Glucose Arterial Blood Ionized Calcium Urine WBC (Auto) 10/15/20 10/16/20 10/16/20 23:20 04:45 04:45 WBC RBC 3.47 L Hgb 8.9 L Hct 28.5 L MCV MCH 26 L RDW 24.4 H Plt Count Lymph % (Auto) [place] % (Auto) 9.6 H Eos % (Auto) 5.4 H Lymph # (Auto) [place] # (Auto) 1.0 H Eos # (Auto) 0.6 H Seg Neutrophils % Seg Neuts % (Manual) Monocytes % (Manual) Eosinophils % (Manual) Seg Neutrophils # Seg Neutrophils # Man Lymphocytes # (Manual) Monocytes # (Manual) Eosinophils # (Manual) APTT Heparin Anti-Xa Level ABG pH POC ABG pCO2 POC ABG pO2 ABG Hemoglobin ABG Oxyhemoglobin ABG Sodium ABG Potassium ABG Chloride ABG Glucose Carboxyhemoglobin Sodium Potassium Chloride BUN Creatinine 0.5 L Glucose 138 H POC Glucose 136 H Lactic Acid Calcium Phosphorus AST ALT Troponin T C-Reactive Protein Albumin HDL Cholesterol Arterial Blood Glucose Arterial Blood Ionized Calcium Urine WBC (Auto) 10/16/20 10/16/20 05:23 11:38 WBC RBC Hgb Hct MCV MCH RDW Plt Count Lymph % (Auto) [place] % (Auto) Eos % (Auto) Lymph # (Auto) [place] # (Auto) Eos # (Auto) Seg Neutrophils % Seg Neuts % (Manual) Monocytes % (Manual) Eosinophils % (Manual) Seg Neutrophils # Seg Neutrophils # Man Lymphocytes # (Manual) Monocytes # (Manual) Eosinophils # (Manual) APTT Heparin Anti-Xa Level ABG pH POC ABG pCO2 POC ABG pO2 ABG Hemoglobin ABG Oxyhemoglobin ABG Sodium ABG Potassium ABG Chloride ABG Glucose Carboxyhemoglobin Sodium Potassium Chloride BUN Creatinine Glucose POC Glucose 114 H 177 H Lactic Acid Calcium Phosphorus AST ALT Troponin T C-Reactive Protein Albumin HDL Cholesterol Arterial Blood Glucose Arterial Blood Ionized Calcium Urine WBC (Auto) Chest x-ray: pending Allied health notes reviewed: nursing
[2020-10-16] MEDS ORDERED: fentaNYL 25 MCG/HR PATCH 72HR TD SCH (15:00)
--- NOTE | 2020-10-16 16:32 | Progress Note ---
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 neuro etiology trend temp and WBC curve last cultures on 10/12 no antibiotics at this time --Morbid obesity avoid hypoglycemia currently on no SSI- continue to monitor for need with inc in TF rate Disposition Plan: LTC v home with family Total Time Spent with Patient (Minutes): 60 Brief history: 45-year-old female with obesity hypoventilation syndrome and GERD who presented to the emergency department on 09/25/20 s/p cardiac arrest via EMS. Per EMS staff they were notified for shortness of breath and upon arrival patient was found to be in distress and subsequently went into cardiac arrest and she was treated in accordance to ACLS protocol and intubated in the field and transported to [facility]. Evaluation in the emergency department upon arrival to the emergency department patient was found to have pe rsistent hypoxic respiratory failure and was maintained on ventilator support. Work-up revealed sepsis, pneumonia, seizure disorder, metabolic acidosis as well as NSTEMI. Cardiology, neurology, CCM were consulted. Daily clinical course: 09/26/20: Patient was admitted with out of the hospital cardiac arrest status post CPR per ACLS protocols Anoxic brain injury, unresponsive Orally intubated on ventilatory support Vital signs reviewed. called patient's aunt , STAN Minor at [phone] and discussed in detail, patient's condition, tests and reports, consu ltants recommendations, poor prognosis, treatment plan[explained in detail the medications and their role in the treatment] pending tests. 09/27/2020; patient remains unresponsive, intubated on ventilatory support Follow neurology evaluation and recommendations 10/01: Patient has persistent leukocytosis and hyperchloremia. Patient now has hypernatremia and renal function has improved to CR/BUN 1.115 from 1.08/04. Patient has hypophosphatemia which was repleted yesterday and we will obtain a.m . labs. Patient has MRI brain pending. Family updated by neurology over the phone and ZIG ZAG STITCHER at bedside. Patient niece was at bedside today and she will defer goals of care decision after MRI results. EEG findings were explained. According to her the patient was in found to be unresponsive by family and was given bystander CPR before arrival of EMS. 10/02: Patient received MRI brain today which showed diffuse cerebral restricted diffusion consistent with global anoxic brain injury, no associated hemorrhage or herniation and additional small acute lacunar infarct in the right paracentral lesia. 10/03: Cardiology will follow the patient peripherally given poor prognosis, Dr. Alvarado and has spoken to the family regarding prognosis today. Given hypotension patient will receive lower doses of blood pressure medicine and per social media marketing analyst request a referral to [facility]. 10/04: Patient bilateral Doppler ultrasound are negative and heparin drip has been stopped. [facility] referral made by CM which was denied. Family is aware. No acute events reported overnight. Patient family was at bedside and updated by neurologist. Explained to them that pt. is not brain but is with significant brain injury, she is off sedation for a week with no clear changes in her clinical presentation. 10/05: Today patient is no longer hypernatremic so free water flushes were resume at the rate nutrition as ordered. Decrease in Cozaar today patient's T-max 100.7 which was responsive to Tylenol. At the time examination patient is on assist control tidal volume 450, rate of 12, PEEP of 6 and 25% FiO2. Patient will be tried on a CPAP trial today. 10/06/2020: No family at the bedside, spoke with critical care, patient was opening her eyes but continues to be encephalopathic. Patient on cefepime, will get pro-Kareem, if negative, DC antibiotics. Continues to be on CPAP and intubated. 10/07: No significant change clinically, patient remains on mechanical ventilation. discussed LT plan with Aunt and she is wanting a trach/peg and to take pt home with her; pt is a full code at this time. 10/08: General surgery consulted for trach and PEG placement. Patient remains on mechanical ventilation with diffuse anoxic brain injury status post cardiac arrest. Continue supportive care monitor clinically. Patient is full code very poor prognosis. 10/09/20; patient remains on ventilator with trach tube, started on tube feeding with PEG. Continue supportive care, vital stable. data deliverables manager working on placement. 10/10/20: Patient mechanically ventilated with trach tube. Tolerating tube feeding. data deliverables manager working on placement. Very poor prognosis need long-term placement. 10/11/20; patient remains mechanically ventilated via trach tube. Critical care working on to wean off from the vent. Very poor prognosis. Continue supportive care and pending placement. 10/12/20; patient intermittently spiking fever. Order for stat blood culture, UA and chest x-ray. Patient also has elevated white count, monitor off antibiotics for now till culture results available. Patient on CPAP with a trach tube. Discussed plan of care patient's aunt at bedside. I explained to family that patient still with guarded prognosis and poor chance for recovery from diffuse anoxic brain injury. 10/13/20: Patient noted to be hypotensive today, will initiate IV fluid. Chest x -ray yesterday showed no infiltrate, UA normal. Blood culture 24-hour showing no growth. Temperature trended down and currently appears to be normal. Will hold BP meds and will follow clinically. Family at the bedside, updated. 10/14/20: all Cx negative, BP stable with gentle hydration, intermittently spiking fever. started on midodrine. if cont to spike fever will consult ID. family at bedside and updated 10/15/20: Continue monitor off antibiotics, patient intermittently still spiking fever. Consult ID for further recommendation. Monitor CBC and BMP. 10/16/20: Patient noted tachycardic with heart rate at 120s. Will hold midodrine as BP stabilized. Resume Coreg. Intermittently spiking fever like due to central cause from anoxic brain injury. ID recommended supportive care. Recent culture work is negative. Continue to monitor off antibiotics. Subjective Date of service: 10/16/20 Principal diagnosis: Cardiac arrest; Ac. respiratory failure; Anoxic encephalopathy; PNA; NSTEMI Interval history: Patient seen and examined. Medical records and medication list reviewed. No acute event overnight noted by the RN. Patient on ventilator with trach tube, started on tube feeding with newly placed PEG tube data deliverables manager working on placement Patient noted tachycardic, intermittently still spiking fever Discussed with patient's RN at bedside Objective - Exam Narrative Exam: General appearance: Present: no acute distress, well-nourished, other (not responsive ) - EENT ENT: clear oral mucosa - Neck Neck: Present: supple, normal ROM, trach in place - Respiratory Respiratory effort: normal - Cardiovascular Rhythm: regular Heart Sounds: Present: S1 & S2 Peripheral Pulses: within normal limits - Abdominal General gastrointestinal: soft, non-tender, PEG in place - Integumentary Integumentary: Present: clear, warm, dry - Allied Health Allied health notes reviewed: nursing, case management - Constitutional Vitals: Vital Signs - 12hr 10/16/20 10/16/20 10/16/20 04:31 05:00 05:19 Temperature Pulse Rate 112 H 105 H Pulse Rate [ From Monitor] Respiratory 15 16 Rate Blood Pressure 145/67 129/68 O2 Sat by Pulse 93 100 Oximetry O2 Sat by Pulse 100 Oximetry [ Assessment] 10/16/20 10/16/20 10/16/20 05:30 06:00 06:30 Temperature Pulse Rate 105 H 107 H 108 H Pulse Rate [ From Monitor] Respiratory 17 15 18 Rate Blood Pressure 135/69 142/68 146/66 O2 Sat by Pulse 100 98 99 Oximetry O2 Sat by Pulse Oximetry [ Assessment] 10/16/20 10/16/20 10/16/20 07:01 07:15 07:30 Temperature 100.0 F H Pulse Rate 117 H 117 H Pulse Rate [ From Monitor] Respiratory 12 17 Rate Blood Pressure 146/77 139/72 O2 Sat by Pulse 98 100 Oximetry O2 Sat by Pulse Oximetry [ Assessment] 10/16/20 10/16/20 10/16/20 08:00 08:30 08:55 Temperature Pulse Rate 121 H 123 H Pulse Rate [ 123 H From Monitor] Respiratory 17 18 Rate Blood Pressure 132/73 137/63 O2 Sat by Pulse 100 100 100 Oximetry O2 Sat by Pulse Oximetry [ Assessment] 10/16/20 10/16/20 10/16/20 08:56 09:00 09:28 Temperature Pulse Rate 122 H 121 H 122 H Pulse Rate [ From Monitor] Respiratory 21 Rate Blood Pressure 137/63 132/64 132/64 O2 Sat by Pulse 100 100 Oximetry O2 Sat by Pulse Oximetry [ Assessment] 10/16/20 10/16/20 10/16/20 09:30 10:00 10:30 Temperature Pulse Rate 121 H 124 H 123 H Pulse Rate [ From Monitor] Respiratory 23 28 H 29 H Rate Blood Pressure 144/65 143/59 131/67 O2 Sat by Pulse 100 99 97 Oximetry O2 Sat by Pulse Oximetry [ Assessment] 10/16/20 10/16/20 10/16/20 11:00 11:30 11:53 Temperature 99.8 F H Pulse Rate 117 H 112 H Pulse Rate [ From Monitor] Respiratory 27 H 28 H Rate Blood Pressure 131/67 121/55 O2 Sat by Pulse 97 96 Oximetry O2 Sat by Pulse Oximetry [ Assessment] 10/16/20 10/16/20 10/16/20 12:00 12:22 12:24 Temperature Pulse Rate 110 H 112 H Pulse Rate [ 113 H From Monitor] Respiratory 30 H Rate Blood Pressure 114/56 114/56 O2 Sat by Pulse 97 97 Oximetry O2 Sat by Pulse 97 Oximetry [ Assessment] 10/16/20 10/16/20 10/16/20 12:30 13:00 13:30 Temperature Pulse Rate 112 H 112 H 107 H Pulse Rate [ From Monitor] Respiratory 34 H 36 H 25 H Rate Blood Pressure 120/64 123/66 116/59 O2 Sat by Pulse 95 95 95 Oximetry O2 Sat by Pulse Oximetry [ Assessment] - Labs CBC & Chem 7: 10/16/20 04:45 10/16/20 04:45 Labs: Abnormal lab results 10/15/20 10/15/20 10/16/20 Range/Units 17:29 23:20 04:45 RBC 3.47 L (3.65-5.03) M/mm3 Hgb 8.9 L (10.1-14.3) gm/dl Hct 28.5 L (30.3-42.9) % MCH 26 L (28-32) pg RDW 24.4 H (13.2-15.2) % Mccreary % (Auto) 9.6 H (0.0-7.3) % Eos % (Auto) 5.4 H (0.0-4.3) % Mccreary # (Auto) 1.0 H (0.0-0.8) K/mm3 Eos # (Auto) 0.6 H (0.0-0.4) K/mm3 Creatinine (0.6-1.2) mg/dL Glucose (65-100) mg/dL POC Glucose 141 H 136 H (70-105) mg/dL 10/16/20 10/16/20 10/16/20 Range/Units 04:45 05:23 11:38 RBC (3.65-5.03) M/mm3 Hgb (10.1-14.3) gm/dl Hct (30.3-42.9) % MCH (28-32) pg RDW (13.2-15.2) % Mccreary % (Auto) (0.0-7.3) % Eos % (Auto) (0.0-4.3) % Mccreary # (Auto) (0.0-0.8) K/mm3 Eos # (Auto) (0.0-0.4) K/mm3 Creatinine 0.5 L (0.6-1.2) mg/dL Glucose 138 H (65-100) mg/dL POC Glucose 114 H 177 H (70-105) mg/dL HEART Score - HEART Score EKG: Normal Age: 45-65 Risk factors: No known risk factors Troponin: Troponin T < 0.010 ng/mL (0.00-0.029) 10/02/20 06:48 Troponin: < normal limit - Critical Actions Critical Actions: 0-3 pts:0.9-1.7%risk of adverse cardiac event.Candidate for discharge
[2020-10-16] MEDS: SENNOSIDES 8.6 MG TAB PO SCH (21:39)
[2020-10-16] MEDS: carvediloL 6.25 MG TAB PO SCH (21:40)
[2020-10-17 01:03] LABS: ABG Base Excess 3.8 mmol/L (-2.0-3.0); ABG HCO3 28.5 mmol/L (20.0-26.0); ABG Methemoglobin 0.5 % (0.0-1.5); ABG Oxygen Saturation 98.3 % (95.0-99.0); ABG PCO2 43.5 mm Hg; ABG PH 7.435 pH Units (7.350-7.450); ABG PO2 119.2 mm Hg (80.0-90.0)
[2020-10-17] MEDS: INSULIN LISPRO 100 UNIT/ML SUB-Q SCH ×3 (05:31→11:31)
[2020-10-17] MEDS: HEPARIN 5,000 UNIT/1 ML VIAL SUB-Q SCH ×2 (06:24→15:40)
[2020-10-17 08:21] LABS: Basophils % (Auto) 0.3 % (0.0-1.8); Eosinophils # (Auto) 0.6 K/mm3 (0.0-0.4); Eosinophils % (Auto) 5.3 % (0.0-4.3); Hematocrit 28.3 % (30.3-42.9); Lymphocytes # (Auto) 2.6 K/mm3 (1.2-5.4); Mean Corpuscular HGB Conc 32 % (30-34); Mean Corpuscular Volume 82 fl (79-97); Monocytes # (Auto) 1.2 K/mm3 (0.0-0.8); Monocytes % (Auto) 9.9 % (0.0-7.3); Platelet Count 411 K/mm3 (140-440); Red Blood Count 3.45 M/mm3 (3.65-5.03)
[2020-10-17 08:39] LABS: Blood Urea Nitrogen 15 mg/dL (7-17); Calcium 10.1 mg/dL (8.4-10.2)
[2020-10-17 08:51] LABS: BUN/Creatinine Ratio 30
[2020-10-17 08:53] LABS: Red Cell Distribution Width 24.2 % (13.2-15.2)
[2020-10-17] MEDS: ASPIRIN 81 MG TAB CHEW PO SCH (09:08)
[2020-10-17] MEDS: levETIRAcetam 500 MG/5 ML ORAL LIQD PO SCH (09:08)
[2020-10-17] MEDS: MODAFINIL 100 MG TAB PO SCH (09:08)
[2020-10-17] MEDS: carvediloL 6.25 MG TAB PO SCH (09:09)
[2020-10-17] MEDS: FAMOTIDINE 20 MG TAB PO SCH (09:09)
--- NOTE | 2020-10-17 10:23 | Discharge Summary ---
Providers - Providers Date of Admission: 09/25/20 18:45 Date of discharge: 10/17/20 Attending physician: REY ABARCA 09/25/20 18:45 Consult to Physician [CONS] Routine Comment: Consulting Provider: ORALIA ANDERS Physician Instructions: Reason For Exam: cardiac arrest, respiratory failure 09/26/20 10:17 Consult to Physician [CONS] Routine Comment: Consulting Provider: AMANDA PEREZ Physician Instructions: Reason For Exam: Pre hospital cardiac arrest/anoxic brain injury 09/26/20 13:36 Consult to Dietitian/Nutrition [CONS] Routine Physician Instructions: Reason For Exam: Reason for Consult: Write/Manage Tube Feeding 09/26/20 15:34 Consult to PICC Line RN [CONS] Routine Reason For Exam: Difficult IV Access Type Line:: Midline Physical Therapy Evaluation and Treat [CONS] Routine Comment: Reason For Exam: evaluate and treat 09/30/20 13:12 Consult to Physician [CONS] Routine Comment: Consulting Provider: GERMANIA ABARCA Physician Instructions: Reason For Exam: Cardiac Arrest 10/07/20 10:50 Consult to Physician [CONS] Routine Comment: dr. Ybarra o/c left mess. kip Consulting Provider: GLENDA MEJÍA Physician Instructions: Reason For Exam: Trach, PEG placement 10/15/20 10:44 Consult to Physician [CONS] Routine Comment: Consulting Provider: LILY GUZMÁN Physician Instructions: Reason For Exam: fever Primary care physician: VIOLET GOULD MD Hospitalization Condition: Stable Hospital course: 45-year-old female with obesity hypoventilation syndrome and GERD who presented to the emergency department on 09/25/20 s/p cardiac arrest via EMS. Per EMS staff they were notified for shortness of breath and upon arrival patient was found to be in distress and subsequently went into cardiac arrest and she was treated in accordance to ACLS protocol and intubated in the field and transported to [facility]. Evaluation in the emergency departmen t upon arrival to the emergency department patient was found to have persistent hypoxic respiratory failure and was maintained on ventilator support. Work-up revealed sepsis, pneumonia, seizure disorder, metabolic acidosis as well as NSTEMI. Cardiology, neurology, CCM were consulted. Patient states she had leukocytosis when she received antibiotic therapy. Patient had electrolyte imbalances which were corrected. Patient had MRI brain which showed diffuse cerebral restricted diffusion consistent with global anoxic brain injury with no associated hemorrhage or herniation and small acute lacu lisa infarct in the right paracentral lesia and the patient was placed on appropriate therapy. Patient eventually received a PEG/trach. Patient will be transferred to senior living facility for continued care per family request. 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 neuro etiology trend temp and WBC curve last cultures on 10/12 no antibiotics at this time --Morbid obesity avoid hypoglycemia currently on no SSI- continue to monitor for need with inc in TF rate Disposition: DC/[place] CERT Final Discharge Diagnosis (Prints w/discharge instructions): Acute encephalopathy s/p cardiac arrest, seizure disorder, dilated cardiomyopathy, NSTEMI, hypertension, GERD, constipation, febrile illness, morbid obesity, acute respiratory failure Time spent for discharge: 35 Core Measure Documentation - Palliative Care Palliative Care/ Comfort Measures: Not Applicable - Core Measures Any of the following diagnoses?: stroke - Heart Failure Discharge Requirements ANNIE/ARB for LVSD if EF <40%: Yes Beta tasha at discharge: Yes - Stroke Discharge Requirements Statin for LDL = or >70 mg/dl on DC: Yes Anticoag for atrial fib/atrial flutter: Not Applicable Antithrombotic for ischemic stroke: Yes Exam - Constitutional Vitals: Temp Pulse Resp BP Pulse Ox 98.7 F 111 H 28 H 125/68 98 10/17/20 08:00 10/17/20 08:01 10/17/20 08:01 10/17/20 08:01 10/17/20 08:39 General appearance: Present: other (unresponsive to verbal/tactile/noxious stimuli) - EENT Eyes: Absent: PERRL, EOM intact - Neck Neck: Absent: masses or JVD, cervical LAD - Respiratory Respiratory effort: normal Respiratory: bilateral: diminished - Cardiovascular Rhythm: regular Heart Sounds: Present: S1 & S2. Absent: systolic murmur, diastolic murmur - Extremities Extremities: no ischemia, pulses intact, pulses symmetrical, No edema, normal temperature, normal color Peripheral Pulses: within normal limits - Abdominal General gastrointestinal: Present: soft, non-tender, non-distended, hypoactive bowel sounds - Integumentary Integumentary: Present: warm, dry - Musculoskeletal Musculoskeletal: other (ED, unresponsive to stimuli) - Psychiatric Psychiatric: other (not interactive) - Neurologic Neurologic: no CNII-XII intact, no moves all extremities, other (Unresponsive to noxious stimuli, does not follow commands does not focus/track, pupils equal round but not reactive to light or accommodation) - Allied Health Allied health notes reviewed: nursing, RT, social work Plan Activity: advance as tolerated Diet: per dietitian instruction Wound: per wound nurse instructions Special Instructions: record daily weights, record daily BP diary, record blood sugar diary Follow up with: VIOLET GOULD MD [Primary Care Provider] - 7 Days Prescriptions: Sennosides Tab [Senokot] 17.2 mg PO QHS #14 tablet Aspirin [Aspirin BABY CHEW TAB] 81 mg PO QDAY #30 tab.chew carvediloL [Coreg] 6.25 mg PO BID #60 tablet levETIRAcetam [Keppra] 750 mg PO BID #60 oral.liqd Famotidine [Pepcid] 20 mg PO BID #60 tablet modafiniL [Provigil] 100 mg PO QAM #7 tablet Scopolamine [Transderm-Scop] 1 each TD Q72HR #2 patch fentaNYL 25 MCG/HR Patch 72hr [DURAGESIC 25 MCG/HR Patch 72hr] 1 applic TD Q3D #2 ea
--- NOTE | 2020-10-17 10:28 | Progress Note ---
Assessment and Plan Cultures: COVID-19 PCR: Negative 09/25/2020 urine culture: No growth 09/25/2020 blood culture: No growth 10/12/2020 blood culture: No growth A/P: 45-year-old female with morbid obesity, obesity hypoventilation, gastroesophageal reflux disease admitted to the hospital on 09/25/2020 after a cardiac arrest requiring ACLS protocol, she has been in ICU, on mechanical ventilation. Believed to have underlying anoxic brain injury based on MRI. She is status post tracheostomy tube and PEG tube placements: #Intermittent febrile illness: UA, chest x-ray and blood cultures not consistent with infection. MRI with evidence of anoxic brain injury. Central fever is a possibility. Continue to hold off on antibiotics at this point. Procal on 10/06/2020 was low. #Acute hypoxic/anoxic encephalopathy #Acute respiratory failure: s/p trach #Morbid obesity Recs: -Continue off antibiotics, likely central fever -Overall poor prognosis, remains at risk of several infectious complications including pneumonia, UTI, decubitus ulcers Manasa Maki MD, FACP [facility] O: [phone] F: [phone] Subjective Date of service: 10/17/20 Principal diagnosis: Cardiac arrest; Ac. respiratory failure; Anoxic encephalopathy; PNA; NSTEMI Interval history: No fever. Remains unresponsive. Objective - Exam Narrative Exam: Physical Exam: Constitutional: Unresponsive on the vent Head, Ears, Nose: Normocephalic, atraumatic. External ears, nose normal Eyes: Conjunctivae/corneas clear. No icterus. No ptosis. Neck: Trach Cardiovascular: S1, S2 + Respiratory: AE fair bilaterally and equal GI: Soft, bowel sounds +, G-tube + Musculoskeletal: No pedal edema, no cyanosis. Skin: No rash or abscess Hem/Lymphatic: No palpable cervical or supraclavicular nodes. No lymphangitis Psych: no agitation Neurological: Unresponsive, on the vent, exam limited - Constitutional Vitals: Vital Signs Temp Pulse Resp BP Pulse Ox 98.7 F 109 H 27 H 124/65 94 10/17/20 08:00 10/17/20 10:00 10/17/20 10:00 10/17/20 10:00 10/17/20 10:00 Temperature -Last 24 Hours Temperature 98.7 F Temperature 98.7 F Temperature 98.3 F Temperature 99.5 F Temperature 99.7 F Temperature 99.8 F - Labs CBC & Chem 7: 10/17/20 07:56 10/17/20 07:56 Labs: Abnormal lab results 10/16/20 10/16/20 10/16/20 Range/Units 11:38 17:36 23:33 WBC (4.5-11.0) K/mm3 RBC (3.65-5.03) M/mm3 Hgb (10.1-14.3) gm/dl Hct (30.3-42.9) % MCH (28-32) pg RDW (13.2-15.2) % Hutchinson % (Auto) (0.0-7.3) % Eos % (Auto) (0.0-4.3) % Hutchinson # (Auto) (0.0-0.8) K/mm3 Eos # (Auto) (0.0-0.4) K/mm3 ABG pO2 (80.0-90.0) mm Hg ABG HCO3 (20.0-26.0) mmol/L ABG Base Excess (-2.0-3.0) mmol/L ABG Hemoglobin (12.0-16.0) gm/dl Creatinine (0.6-1.2) mg/dL Glucose (65-100) mg/dL POC Glucose 177 H 158 H 149 H (70-105) mg/dL 10/17/20 10/17/20 10/17/20 Range/Units 00:37 05:03 07:56 WBC 11.7 H (4.5-11.0) K/mm3 RBC 3.45 L (3.65-5.03) M/mm3 Hgb 9.0 L (10.1-14.3) gm/dl Hct 28.3 L (30.3-42.9) % MCH 26 L (28-32) pg RDW 24.2 H (13.2-15.2) % Hutchinson % (Auto) 9.9 H (0.0-7.3) % Eos % (Auto) 5.3 H (0.0-4.3) % Hutchinson # (Auto) 1.2 H (0.0-0.8) K/mm3 Eos # (Auto) 0.6 H (0.0-0.4) K/mm3 ABG pO2 119.2 H (80.0-90.0) mm Hg ABG HCO3 28.5 H (20.0-26.0) mmol/L ABG Base Excess 3.8 H (-2.0-3.0) mmol/L ABG Hemoglobin 10.6 L (12.0-16.0) gm/dl Creatinine (0.6-1.2) mg/dL Glucose (65-100) mg/dL POC Glucose 138 H (70-105) mg/dL 10/17/20 Range/Units 07:56 WBC (4.5-11.0) K/mm3 RBC (3.65-5.03) M/mm3 Hgb (10.1-14.3) gm/dl Hct (30.3-42.9) % MCH (28-32) pg RDW (13.2-15.2) % Hutchinson % (Auto) (0.0-7.3) % Eos % (Auto) (0.0-4.3) % Hutchinson # (Auto) (0.0-0.8) K/mm3 Eos # (Auto) (0.0-0.4) K/mm3 ABG pO2 (80.0-90.0) mm Hg ABG HCO3 (20.0-26.0) mmol/L ABG Base Excess (-2.0-3.0) mmol/L ABG Hemoglobin (12.0-16.0) gm/dl Creatinine 0.5 L (0.6-1.2) mg/dL Glucose 158 H (65-100) mg/dL POC Glucose (70-105) mg/dL
--- NOTE | 2020-10-17 12:55 | Progress Note ---
Assessment and Plan Cardiac arrest with return of spontaneous circulation. Acute respiratory failure, on mechanical ventilatory support. Acute toxic metabolic encephalopathy. Possible anoxic encephalopathy. Obesity. History of obesity hypoventilation syndrome. Leukocytosis. Likely aspiration pneumonia, bilateral. Anemia that is microcytic. Lactic acidosis. Elevated serum transaminases. Non-ST elevation myocardial infarction - keep on RTC t-piece as tolerated henceforth - continue midodrine with hold parameters for SBP > 120 mmHg - continue Coreg - continue 25 aliana's/hr - to transfer to vent / SNF facility today - continue care as below otherwise; - continue scopolamine patch for secretion control - continue to wean supplemental oxygen for target O2 sat's > 90% acutely - aspiration precautions; HOB > 40 degrees - continue bronchodilators with pulmonary hygiene per RT - wean per pulmonary driven protocols otherwise - continue accuchecks with glycemic control per SSI for target blood glucose of <180 mg/dL; avoid hypoglycemia - avoid nephrotoxins, renally dose all medications - completed AB's per ID rec's - prn analgesia per CPOT score - Maintenance of sleep-wake cycle, avoid delirium - continue enteral nutritional support at goal rate as tolerated - G.I. & VTE prophylaxis - PT/OT/ROM exercises - continue mobility protocols for pressure ulcer prophylaxis - Monitor hemodynamics closely - continue other care per attending / other consultants - discharge planning ongoing concurrently COVID SPECIFIC INTERVENTIONS - COVID tests result was negative .... Re-evaluate in am & prn CONDITION: FAIR PROGNOSIS: GUARDED CODE STATUS: FULL CODE I have spent ( >35 ) minutes with the patient w/ >50% of the time spent counseling and/or coordinating care for this patient. Counseling topics and/or how time was spent coordinating patient's care is outlined in the impression and plan above. Subjective Date of service: 10/17/20 Principal diagnosis: Cardiac arrest; Ac. respiratory failure; Anoxic encephalopathy; PNA; NSTEMI Interval history: Patient is seen today for: Cardiac arrest with ROSC; Acute respiratory failure; Anoxic encephalopathy; Obesity; OHS; Aspiration pneumonia; NSTEMI Seen and examined at bedside; 24hour events reviewed; nursing and respiratory care staff consulted; no adverse overnight events reported to me; resting in bed; remains on RTC t-piece X > 24 hours now; family conference held re: next level of care Objective Vital Signs - 12hr 10/17/20 10/17/20 10/17/20 01:00 01:30 02:00 Temperature Pulse Rate 109 H 107 H 109 H Pulse Rate [ From Monitor] Respiratory 23 24 24 Rate Blood Pressure 123/56 115/51 118/61 O2 Sat by Pulse 97 94 94 Oximetry O2 Sat by Pulse Oximetry [ Assessment] 10/17/20 10/17/20 10/17/20 02:30 03:00 03:30 Temperature Pulse Rate 110 H 109 H 109 H Pulse Rate [ From Monitor] Respiratory 23 24 22 Rate Blood Pressure 126/57 127/57 119/61 O2 Sat by Pulse 96 95 97 Oximetry O2 Sat by Pulse Oximetry [ Assessment] 10/17/20 10/17/20 10/17/20 03:44 03:57 04:00 Temperature 98.7 F Pulse Rate 104 H Pulse Rate [ 104 H From Monitor] Respiratory 23 Rate Blood Pressure 115/60 O2 Sat by Pulse 96 96 Oximetry O2 Sat by Pulse 98 Oximetry [ Assessment] 10/17/20 10/17/20 10/17/20 04:30 05:00 05:30 Temperature Pulse Rate 106 H 106 H 107 H Pulse Rate [ From Monitor] Respiratory 25 H 24 24 Rate Blood Pressure 138/70 138/70 127/59 O2 Sat by Pulse 95 97 95 Oximetry O2 Sat by Pulse Oximetry [ Assessment] 10/17/20 10/17/20 10/17/20 06:00 06:30 07:00 Temperature Pulse Rate 107 H 110 H 113 H Pulse Rate [ From Monitor] Respiratory 23 24 27 H Rate Blood Pressure 133/53 146/68 152/82 O2 Sat by Pulse 96 95 94 Oximetry O2 Sat by Pulse Oximetry [ Assessment] 10/17/20 10/17/20 10/17/20 07:30 08:00 08:01 Temperature 98.7 F Pulse Rate 111 H 110 H 111 H Pulse Rate [ 104 H From Monitor] Respiratory 27 H 23 28 H Rate Blood Pressure 141/78 125/68 O2 Sat by Pulse 95 96 95 Oximetry O2 Sat by Pulse Oximetry [ Assessment] 10/17/20 10/17/20 10/17/20 08:30 08:38 08:39 Temperature Pulse Rate 110 H Pulse Rate [ From Monitor] Respiratory 27 H Rate Blood Pressure 128/65 O2 Sat by Pulse 95 98 Oximetry O2 Sat by Pulse 98 Oximetry [ Assessment] 10/17/20 10/17/20 10/17/20 09:00 09:30 10:00 Temperature Pulse Rate 110 H 109 H 109 H Pulse Rate [ From Monitor] Respiratory 27 H 26 H 27 H Rate Blood Pressure 130/67 127/66 124/65 O2 Sat by Pulse 93 95 94 Oximetry O2 Sat by Pulse Oximetry [ Assessment] 10/17/20 10/17/20 10/17/20 10:30 11:00 11:01 Temperature Pulse Rate 108 H 108 H Pulse Rate [ From Monitor] Respiratory 25 H 26 H Rate Blood Pressure 123/58 116/62 O2 Sat by Pulse 94 94 Oximetry O2 Sat by Pulse 98 Oximetry [ Assessment] 10/17/20 10/17/20 10/17/20 11:30 12:00 12:30 Temperature 98.5 F Pulse Rate 107 H 108 H 112 H Pulse Rate [ 104 H From Monitor] Respiratory 27 H 29 H 30 H Rate Blood Pressure 113/62 117/61 124/64 O2 Sat by Pulse 94 95 95 Oximetry O2 Sat by Pulse Oximetry [ Assessment] Constitutional: no acute distress, other (middle aged obese female without increased respiratory effort at rest ) Eyes: non-icteric ENT: oropharynx moist, other (+ midline tracheostomy) Neck: supple, no lymphadenopathy, no JVD Effort: normal Ascultation: Bilateral: rhonchi (scant) Percussion: Bilateral: not dull Cardiovascular: regular rate and rhythm, other (S1,S2) Gastrointestinal: normoactive bowel sounds, soft, non-tender, non-distended Integumentary: normal Extremities: no cyanosis, no edema, pulses normal, no ischemia or petechiae Neurologic: pupils equal and round, unable to assess Psychiatric: other (unable to assess re: AMS) CBC and BMP: 10/17/20 07:56 10/17/20 07:56 ABG, PT/INR, D-dimer: ABG ABG pH 7.435 pH Units (7.350-7.450) 10/17/20 00:37 POC ABG pCO2 41.6 mmHg (32.0-48.0) 10/01/20 04:12 ABG pCO2 43.5 mm Hg 10/17/20 00:37 POC ABG pO2 73.0 mmHg (83-108) L 10/01/20 04:12 ABG pO2 119.2 mm Hg (80.0-90.0) H 10/17/20 00:37 POC ABG HCO3 26.6 10/01/20 04:12 ABG O2 Saturation 98.3 % (95.0-99.0) 10/17/20 00:37 PT/INR, D-dimer PT 13.7 Sec. (12.2-14.9) 09/25/20 18:15 INR 1.00 (0.87-1.13) 09/25/20 18:15 Abnormal lab findings: Abnormal Labs 09/25/20 09/25/20 09/25/20 17:19 17:21 18:15 WBC 13.8 H RBC Hgb 9.9 L Hct MCV 76 L MCH 23 L RDW 17.9 H Plt Count Lymph % (Auto) [place] % (Auto) Eos % (Auto) Lymph # (Auto) [place] # (Auto) Eos # (Auto) Seg Neutrophils % 78.6 H Seg Neuts % (Manual) Monocytes % (Manual) Eosinophils % (Manual) Seg Neutrophils # 10.8 H Seg Neutrophils # Man Lymphocytes # (Manual) Monocytes # (Manual) Eosinophils # (Manual) APTT Heparin Anti-Xa Level ABG pH POC ABG pCO2 26.2 L POC ABG pO2 554.5 H ABG pO2 ABG HCO3 ABG Base Excess ABG Hemoglobin 9.0 L ABG Oxyhemoglobin 99.0 H ABG Sodium 134.5 L ABG Potassium ABG Chloride ABG Glucose 220 H Carboxyhemoglobin Sodium Potassium Chloride BUN Creatinine Glucose POC Glucose Lactic Acid Calcium Phosphorus AST ALT Troponin T C-Reactive Protein Albumin HDL Cholesterol Arterial Blood Glucose 220 H Arterial Blood Ionized Calcium 4.2 L Urine WBC (Auto) 14.0 H 09/25/20 09/25/20 09/25/20 18:15 18:15 18:15 WBC RBC Hgb Hct MCV MCH RDW Plt Count Lymph % (Auto) [place] % (Auto) Eos % (Auto) Lymph # (Auto) [place] # (Auto) Eos # (Auto) Seg Neutrophils % Seg Neuts % (Manual) Monocytes % (Manual) Eosinophils % (Manual) Seg Neutrophils # Seg Neutrophils # Man Lymphocytes # (Manual) Monocytes # (Manual) Eosinophils # (Manual) APTT 21.1 L Heparin Anti-Xa Level ABG pH POC ABG pCO2 POC ABG pO2 ABG pO2 ABG HCO3 ABG Base Excess ABG Hemoglobin ABG Oxyhemoglobin ABG Sodium ABG Potassium ABG Chloride ABG Glucose Carboxyhemoglobin Sodium Potassium Chloride BUN Creatinine Glucose 113 H POC Glucose Lactic Acid 2.60 H* Calcium Phosphorus AST 162 H ALT 131 H Troponin T 0.096 H C-Reactive Protein Albumin HDL Cholesterol Arterial Blood Glucose Arterial Blood Ionized Calcium Urine WBC (Auto) 09/25/20 09/25/20 09/26/20 23:13 23:13 03:15 WBC RBC Hgb Hct MCV MCH RDW Plt Count Lymph % (Auto) [place] % (Auto) Eos % (Auto) Lymph # (Auto) [place] # (Auto) Eos # (Auto) Seg Neutrophils % Seg Neuts % (Manual) Monocytes % (Manual) Eosinophils % (Manual) Seg Neutrophils # Seg Neutrophils # Man Lymphocytes # (Manual) Monocytes # (Manual) Eosinophils # (Manual) APTT Heparin Anti-Xa Level ABG pH 7.451 H POC ABG pCO2 27.1 L POC ABG pO2 ABG pO2 ABG HCO3 ABG Base Excess ABG Hemoglobin 10.4 L ABG Oxyhemoglobin ABG Sodium 135.2 L ABG Potassium ABG Chloride 108.0 H ABG Glucose 137 H Carboxyhemoglobin Sodium Potassium Chloride BUN Creatinine Glucose POC Glucose Lactic Acid 2.90 H* Calcium Phosphorus AST ALT Troponin T 0.170 H* D C-Reactive Protein Albumin HDL Cholesterol 60 H Arterial Blood Glucose 137 H Arterial Blood Ionized Calcium 4.2 L Urine WBC (Auto) 09/26/20 09/26/20 09/26/20 05:09 05:09 05:09 WBC 15.8 H RBC Hgb 10.0 L Hct MCV 77 L MCH 24 L RDW 17.8 H Plt Count Lymph % (Auto) 7.2 L [place] % (Auto) Eos % (Auto) Lymph # (Auto) 1.1 L [place] # (Auto) 1.0 H Eos # (Auto) Seg Neutrophils % 86.1 H Seg Neuts % (Manual) Monocytes % (Manual) Eosinophils % (Manual) Seg Neutrophils # 13.6 H Seg Neutrophils # Man Lymphocytes # (Manual) Monocytes # (Manual) Eosinophils # (Manual) APTT Heparin Anti-Xa Level ABG pH POC ABG pCO2 POC ABG pO2 ABG pO2 ABG HCO3 ABG Base Excess ABG Hemoglobin ABG Oxyhemoglobin ABG Sodium ABG Potassium ABG Chloride ABG Glucose Carboxyhemoglobin Sodium Potassium Chloride BUN Creatinine Glucose 114 H POC Glucose Lactic Acid 2.40 H* Calcium 8.1 L Phosphorus AST 112 H ALT 103 H Troponin T C-Reactive Protein Albumin 3.8 L HDL Cholesterol Arterial Blood Glucose Arterial Blood Ionized Calcium Urine WBC (Auto) 09/26/20 09/27/20 09/27/20 15:45 03:33 04:41 WBC RBC Hgb 9.0 L Hct 28.6 L MCV MCH RDW Plt Count Lymph % (Auto) [place] % (Auto) Eos % (Auto) Lymph # (Auto) [place] # (Auto) Eos # (Auto) Seg Neutrophils % Seg Neuts % (Manual) Monocytes % (Manual) Eosinophils % (Manual) Seg Neutrophils # Seg Neutrophils # Man Lymphocytes # (Manual) Monocytes # (Manual) Eosinophils # (Manual) APTT Heparin Anti-Xa Level ABG pH POC ABG pCO2 POC ABG pO2 141.6 H ABG pO2 ABG HCO3 ABG Base Excess ABG Hemoglobin 9.3 L ABG Oxyhemoglobin ABG Sodium ABG Potassium 3.2 L ABG Chloride 108.0 H ABG Glucose 118 H Carboxyhemoglobin Sodium Potassium Chloride BUN Creatinine Glucose POC Glucose Lactic Acid Calcium Phosphorus 2.20 L AST ALT Troponin T C-Reactive Protein 4.30 H Albumin HDL Cholesterol Arterial Blood Glucose 118 H Arterial Blood Ionized Calcium 4.2 L Urine WBC (Auto) 09/27/20 09/27/20 09/28/20 04:41 22:53 04:00 WBC RBC Hgb Hct MCV MCH RDW Plt Count Lymph % (Auto) [place] % (Auto) Eos % (Auto) Lymph # (Auto) [place] # (Auto) Eos # (Auto) Seg Neutrophils % Seg Neuts % (Manual) Monocytes % (Manual) Eosinophils % (Manual) Seg Neutrophils # Seg Neutrophils # Man Lymphocytes # (Manual) Monocytes # (Manual) Eosinophils # (Manual) APTT Heparin Anti-Xa Level 0.75 H ABG pH 7.467 H POC ABG pCO2 POC ABG pO2 78.9 L ABG pO2 ABG HCO3 ABG Base Excess ABG Hemoglobin 9.8 L ABG Oxyhemoglobin ABG Sodium ABG Potassium ABG Chloride ABG Glucose 141 H Carboxyhemoglobin Sodium Potassium Chloride BUN Creatinine Glucose POC Glucose 109 H Lactic Acid Calcium Phosphorus AST ALT Troponin T C-Reactive Protein Albumin HDL Cholesterol Arterial Blood Glucose 141 H Arterial Blood Ionized Calcium Urine WBC (Auto) 09/28/20 09/28/20 09/28/20 05:02 05:02 17:42 WBC 11.9 H RBC Hgb 9.3 L Hct 29.5 L MCV 76 L MCH 24 L RDW 19.4 H Plt Count Lymph % (Auto) [place] % (Auto) 11.1 H Eos % (Auto) Lymph # (Auto) [place] # (Auto) 1.3 H Eos # (Auto) Seg Neutrophils % 72.5 H Seg Neuts % (Manual) Monocytes % (Manual) Eosinophils % (Manual) Seg Neutrophils # 8.6 H Seg Neutrophils # Man Lymphocytes # (Manual) Monocytes # (Manual) Eosinophils # (Manual) APTT Heparin Anti-Xa Level ABG pH POC ABG pCO2 POC ABG pO2 ABG pO2 ABG HCO3 ABG Base Excess ABG Hemoglobin ABG Oxyhemoglobin ABG Sodium ABG Potassium ABG Chloride ABG Glucose Carboxyhemoglobin Sodium Potassium 3.4 L Chloride BUN Creatinine Glucose 126 H POC Glucose 69 L Lactic Acid Calcium Phosphorus AST 129 H ALT 60 H Troponin T C-Reactive Protein Albumin 3.7 L HDL Cholesterol Arterial Blood Glucose Arterial Blood Ionized Calcium Urine WBC (Auto) 09/29/20 09/29/20 09/29/20 04:00 05:53 08:39 WBC RBC Hgb 10.0 L Hct MCV MCH RDW Plt Count Lymph % (Auto) [place] % (Auto) Eos % (Auto) Lymph # (Auto) [place] # (Auto) Eos # (Auto) Seg Neutrophils % Seg Neuts % (Manual) Monocytes % (Manual) Eosinophils % (Manual) Seg Neutrophils # Seg Neutrophils # Man Lymphocytes # (Manual) Monocytes # (Manual) Eosinophils # (Manual) APTT Heparin Anti-Xa Level ABG pH POC ABG pCO2 POC ABG pO2 81.1 L ABG pO2 ABG HCO3 ABG Base Excess ABG Hemoglobin 11.0 L ABG Oxyhemoglobin ABG Sodium ABG Potassium ABG Chloride 110.0 H ABG Glucose 129 H Carboxyhemoglobin Sodium Potassium Chloride BUN Creatinine Glucose POC Glucose 58 L Lactic Acid Calcium Phosphorus AST ALT Troponin T C-Reactive Protein Albumin HDL Cholesterol Arterial Blood Glucose 129 H Arterial Blood Ionized Calcium Urine WBC (Auto) 09/30/20 09/30/20 09/30/20 00:10 10:45 15:05 WBC 12.5 H RBC Hgb 9.9 L Hct MCV 78 L MCH 24 L RDW 21.0 H Plt Count Lymph % (Auto) [place] % (Auto) 13.5 H Eos % (Auto) Lymph # (Auto) [place] # (Auto) 1.7 H Eos # (Auto) Seg Neutrophils % Seg Neuts % (Manual) Monocytes % (Manual) Eosinophils % (Manual) Seg Neutrophils # 8.1 H Seg Neutrophils # Man Lymphocytes # (Manual) Monocytes # (Manual) Eosinophils # (Manual) APTT Heparin Anti-Xa Level ABG pH 7.469 H POC ABG pCO2 POC ABG pO2 ABG pO2 ABG HCO3 ABG Base Excess ABG Hemoglobin 10.4 L ABG Oxyhemoglobin ABG Sodium 146.2 H ABG Potassium ABG Chloride 109.0 H ABG Glucose 155 H Carboxyhemoglobin Sodium Potassium Chloride BUN Creatinine Glucose POC Glucose 131 H Lactic Acid Calcium Phosphorus AST ALT Troponin T C-Reactive Protein Albumin HDL Cholesterol Arterial Blood Glucose 155 H Arterial Blood Ionized Calcium Urine WBC (Auto) 09/30/20 09/30/20 10/01/20 15:05 17:37 00:29 WBC RBC Hgb Hct MCV MCH RDW Plt Count Lymph % (Auto) [place] % (Auto) Eos % (Auto) Lymph # (Auto) [place] # (Auto) Eos # (Auto) Seg Neutrophils % Seg Neuts % (Manual) Monocytes % (Manual) Eosinophils % (Manual) Seg Neutrophils # Seg Neutrophils # Man Lymphocytes # (Manual) Monocytes # (Manual) Eosinophils # (Manual) APTT Heparin Anti-Xa Level ABG pH POC ABG pCO2 POC ABG pO2 ABG pO2 ABG HCO3 ABG Base Excess ABG Hemoglobin ABG Oxyhemoglobin ABG Sodium ABG Potassium ABG Chloride ABG Glucose Carboxyhemoglobin Sodium Potassium Chloride 109.1 H BUN 18 H Creatinine 1.4 H Glucose 122 H POC Glucose 127 H 119 H Lactic Acid Calcium Phosphorus 2.00 L AST ALT Troponin T C-Reactive Protein Albumin HDL Cholesterol Arterial Blood Glucose Arterial Blood Ionized Calcium Urine WBC (Auto) 10/01/20 10/01/20 10/01/20 04:12 05:56 05:56 WBC 14.2 H RBC Hgb 9.7 L Hct MCV 78 L MCH 23 L RDW 21.1 H Plt Count Lymph % (Auto) [place] % (Auto) Eos % (Auto) Lymph # (Auto) [place] # (Auto) Eos # (Auto) Seg Neutrophils % Seg Neuts % (Manual) Monocytes % (Manual) Eosinophils % (Manual) Seg Neutrophils # Seg Neutrophils # Man Lymphocytes # (Manual) Monocytes # (Manual) Eosinophils # (Manual) APTT Heparin Anti-Xa Level ABG pH POC ABG pCO2 POC ABG pO2 73.0 L ABG pO2 ABG HCO3 ABG Base Excess ABG Hemoglobin 10.0 L ABG Oxyhemoglobin 93.7 L ABG Sodium 146.4 H ABG Potassium ABG Chloride 110.0 H ABG Glucose 124 H Carboxyhemoglobin 0.3 L Sodium 147 H Potassium Chloride 109.6 H BUN Creatinine Glucose 109 H POC Glucose Lactic Acid Calcium Phosphorus AST ALT Troponin T C-Reactive Protein Albumin HDL Cholesterol Arterial Blood Glucose 124 H Arterial Blood Ionized Calcium Urine WBC (Auto) 10/01/20 10/01/20 10/02/20 19:21 23:17 05:27 WBC RBC Hgb Hct MCV MCH RDW Plt Count Lymph % (Auto) [place] % (Auto) Eos % (Auto) Lymph # (Auto) [place] # (Auto) Eos # (Auto) Seg Neutrophils % Seg Neuts % (Manual) Monocytes % (Manual) Eosinophils % (Manual) Seg Neutrophils # Seg Neutrophils # Man Lymphocytes # (Manual) Monocytes # (Manual) Eosinophils # (Manual) APTT Heparin Anti-Xa Level ABG pH POC ABG pCO2 POC ABG pO2 ABG pO2 ABG HCO3 ABG Base Excess ABG Hemoglobin ABG Oxyhemoglobin ABG Sodium ABG Potassium ABG Chloride ABG Glucose Carboxyhemoglobin Sodium Potassium Chloride BUN Creatinine Glucose POC Glucose 126 H 160 H 121 H Lactic Acid Calcium Phosphorus AST ALT Troponin T C-Reactive Protein Albumin HDL Cholesterol Arterial Blood Glucose Arterial Blood Ionized Calcium Urine WBC (Auto) 10/02/20 10/02/20 10/02/20 06:48 06:48 11:51 WBC 14.2 H RBC Hgb 9.6 L Hct MCV MCH 25 L RDW 21.7 H Plt Count Lymph % (Auto) [place] % (Auto) Eos % (Auto) Lymph # (Auto) [place] # (Auto) Eos # (Auto) Seg Neutrophils % Seg Neuts % (Manual) Monocytes % (Manual) Eosinophils % (Manual) Seg Neutrophils # Seg Neutrophils # Man Lymphocytes # (Manual) Monocytes # (Manual) Eosinophils # (Manual) APTT Heparin Anti-Xa Level ABG pH POC ABG pCO2 POC ABG pO2 ABG pO2 ABG HCO3 ABG Base Excess ABG Hemoglobin ABG Oxyhemoglobin ABG Sodium ABG Potassium ABG Chloride ABG Glucose Carboxyhemoglobin Sodium 147 H Potassium Chloride 110.4 H BUN Creatinine Glucose 134 H POC Glucose 121 H Lactic Acid Calcium Phosphorus 2.20 L AST ALT Troponin T C-Reactive Protein Albumin HDL Cholesterol Arterial Blood Glucose Arterial Blood Ionized Calcium Urine WBC (Auto) 10/02/20 10/03/20 10/03/20 17:19 00:35 07:24 WBC 12.9 H RBC Hgb 8.9 L Hct 29.6 L MCV MCH 24 L RDW 21.9 H Plt Count Lymph % (Auto) [place] % (Auto) Eos % (Auto) Lymph # (Auto) [place] # (Auto) Eos # (Auto) Seg Neutrophils % Seg Neuts % (Manual) Monocytes % (Manual) Eosinophils % (Manual) Seg Neutrophils # Seg Neutrophils # Man Lymphocytes # (Manual) Monocytes # (Manual) Eosinophils # (Manual) APTT Heparin Anti-Xa Level ABG pH POC ABG pCO2 POC ABG pO2 ABG pO2 ABG HCO3 ABG Base Excess ABG Hemoglobin ABG Oxyhemoglobin ABG Sodium ABG Potassium ABG Chloride ABG Glucose Carboxyhemoglobin Sodium Potassium Chloride BUN Creatinine Glucose POC Glucose 107 H 112 H Lactic Acid Calcium Phosphorus AST ALT Troponin T C-Reactive Protein Albumin HDL Cholesterol Arterial Blood Glucose Arterial Blood Ionized Calcium Urine WBC (Auto) 10/03/20 10/03/20 10/03/20 07:24 17:27 20:19 WBC RBC Hgb Hct MCV MCH RDW Plt Count Lymph % (Auto) [place] % (Auto) Eos % (Auto) Lymph # (Auto) [place] # (Auto) Eos # (Auto) Seg Neutrophils % Seg Neuts % (Manual) Monocytes % (Manual) Eosinophils % (Manual) Seg Neutrophils # Seg Neutrophils # Man Lymphocytes # (Manual) Monocytes # (Manual) Eosinophils # (Manual) APTT Heparin Anti-Xa Level 0.18 L ABG pH POC ABG pCO2 POC ABG pO2 ABG pO2 ABG HCO3 ABG Base Excess ABG Hemoglobin ABG Oxyhemoglobin ABG Sodium ABG Potassium ABG Chloride ABG Glucose Carboxyhemoglobin Sodium 147 H Potassium Chloride 110.4 H BUN Creatinine Glucose 128 H POC Glucose 136 H Lactic Acid Calcium Phosphorus AST ALT Troponin T C-Reactive Protein Albumin HDL Cholesterol Arterial Blood Glucose Arterial Blood Ionized Calcium Urine WBC (Auto) 10/03/20 10/04/20 10/04/20 23:34 04:07 06:12 WBC RBC Hgb Hct MCV MCH RDW Plt Count Lymph % (Auto) [place] % (Auto) Eos % (Auto) Lymph # (Auto) [place] # (Auto) Eos # (Auto) Seg Neutrophils % Seg Neuts % (Manual) Monocytes % (Manual) Eosinophils % (Manual) Seg Neutrophils # Seg Neutrophils # Man Lymphocytes # (Manual) Monocytes # (Manual) Eosinophils # (Manual) APTT Heparin Anti-Xa Level 0.25 L ABG pH POC ABG pCO2 POC ABG pO2 ABG pO2 ABG HCO3 ABG Base Excess ABG Hemoglobin ABG Oxyhemoglobin ABG Sodium ABG Potassium ABG Chloride ABG Glucose Carboxyhemoglobin Sodium Potassium Chloride BUN Creatinine Glucose POC Glucose 119 H 128 H Lactic Acid Calcium Phosphorus AST ALT Troponin T C-Reactive Protein Albumin HDL Cholesterol Arterial Blood Glucose Arterial Blood Ionized Calcium Urine WBC (Auto) 10/04/20 10/04/20 10/05/20 11:38 17:39 00:17 WBC RBC Hgb Hct MCV MCH RDW Plt Count Lymph % (Auto) [place] % (Auto) Eos % (Auto) Lymph # (Auto) [place] # (Auto) Eos # (Auto) Seg Neutrophils % Seg Neuts % (Manual) Monocytes % (Manual) Eosinophils % (Manual) Seg Neutrophils # Seg Neutrophils # Man Lymphocytes # (Manual) Monocytes # (Manual) Eosinophils # (Manual) APTT Heparin Anti-Xa Level ABG pH POC ABG pCO2 POC ABG pO2 ABG pO2 ABG HCO3 ABG Base Excess ABG Hemoglobin ABG Oxyhemoglobin ABG Sodium ABG Potassium ABG Chloride ABG Glucose Carboxyhemoglobin Sodium Potassium Chloride BUN Creatinine Glucose POC Glucose 129 H 136 H 125 H Lactic Acid Calcium Phosphorus AST ALT Troponin T C-Reactive Protein Albumin HDL Cholesterol Arterial Blood Glucose Arterial Blood Ionized Calcium Urine WBC (Auto) 10/05/20 10/05/20 10/05/20 04:17 04:17 05:31 WBC 13.0 H RBC Hgb 9.1 L Hct 29.5 L MCV MCH 25 L RDW 22.2 H Plt Count Lymph % (Auto) [place] % (Auto) Eos % (Auto) Lymph # (Auto) [place] # (Auto) Eos # (Auto) Seg Neutrophils % Seg Neuts % (Manual) Monocytes % (Manual) Eosinophils % (Manual) Seg Neutrophils # Seg Neutrophils # Man Lymphocytes # (Manual) Monocytes # (Manual) Eosinophils # (Manual) APTT Heparin Anti-Xa Level ABG pH POC ABG pCO2 POC ABG pO2 ABG pO2 ABG HCO3 ABG Base Excess ABG Hemoglobin ABG Oxyhemoglobin ABG Sodium ABG Potassium ABG Chloride ABG Glucose Carboxyhemoglobin Sodium Potassium Chloride BUN Creatinine Glucose 148 H POC Glucose 160 H Lactic Acid Calcium Phosphorus AST ALT Troponin T C-Reactive Protein Albumin HDL Cholesterol Arterial Blood Glucose Arterial Blood Ionized Calcium Urine WBC (Auto) 10/05/20 10/05/20 10/05/20 12:09 17:33 23:30 WBC RBC Hgb Hct MCV MCH RDW Plt Count Lymph % (Auto) [place] % (Auto) Eos % (Auto) Lymph # (Auto) [place] # (Auto) Eos # (Auto) Seg Neutrophils % Seg Neuts % (Manual) Monocytes % (Manual) Eosinophils % (Manual) Seg Neutrophils # Seg Neutrophils # Man Lymphocytes # (Manual) Monocytes # (Manual) Eosinophils # (Manual) APTT Heparin Anti-Xa Level ABG pH POC ABG pCO2 POC ABG pO2 ABG pO2 ABG HCO3 ABG Base Excess ABG Hemoglobin ABG Oxyhemoglobin ABG Sodium ABG Potassium ABG Chloride ABG Glucose Carboxyhemoglobin Sodium Potassium Chloride BUN Creatinine Glucose POC Glucose 148 H 135 H 142 H Lactic Acid Calcium Phosphorus AST ALT Troponin T C-Reactive Protein Albumin HDL Cholesterol Arterial Blood Glucose Arterial Blood Ionized Calcium Urine WBC (Auto) 10/06/20 10/06/20 10/06/20 04:37 05:35 10:55 WBC RBC Hgb Hct MCV MCH RDW Plt Count Lymph % (Auto) [place] % (Auto) Eos % (Auto) Lymph # (Auto) [place] # (Auto) Eos # (Auto) Seg Neutrophils % Seg Neuts % (Manual) Monocytes % (Manual) Eosinophils % (Manual) Seg Neutrophils # Seg Neutrophils # Man Lymphocytes # (Manual) Monocytes # (Manual) Eosinophils # (Manual) APTT Heparin Anti-Xa Level ABG pH POC ABG pCO2 POC ABG pO2 ABG pO2 ABG HCO3 ABG Base Excess ABG Hemoglobin ABG Oxyhemoglobin ABG Sodium ABG Potassium ABG Chloride ABG Glucose Carboxyhemoglobin Sodium 136 L Potassium Chloride BUN Creatinine Glucose 184 H POC Glucose 151 H 163 H Lactic Acid Calcium Phosphorus AST 66 H ALT Troponin T C-Reactive Protein Albumin 3.3 L HDL Cholesterol Arterial Blood Glucose Arterial Blood Ionized Calcium Urine WBC (Auto) 10/06/20 10/06/20 10/07/20 16:41 23:31 05:24 WBC RBC Hgb Hct MCV MCH RDW Plt Count Lymph % (Auto) [place] % (Auto) Eos % (Auto) Lymph # (Auto) [place] # (Auto) Eos # (Auto) Seg Neutrophils % Seg Neuts % (Manual) Monocytes % (Manual) Eosinophils % (Manual) Seg Neutrophils # Seg Neutrophils # Man Lymphocytes # (Manual) Monocytes # (Manual) Eosinophils # (Manual) APTT Heparin Anti-Xa Level ABG pH POC ABG pCO2 POC ABG pO2 ABG pO2 ABG HCO3 ABG Base Excess ABG Hemoglobin ABG Oxyhemoglobin ABG Sodium ABG Potassium ABG Chloride ABG Glucose Carboxyhemoglobin Sodium Potassium Chloride BUN Creatinine Glucose POC Glucose 156 H 190 H 194 H Lactic Acid Calcium Phosphorus AST ALT Troponin T C-Reactive Protein Albumin HDL Cholesterol Arterial Blood Glucose Arterial Blood Ionized Calcium Urine WBC (Auto) 10/07/20 10/07/20 10/07/20 11:48 17:50 18:12 WBC 15.7 H RBC Hgb 9.2 L Hct 30.1 L MCV MCH 25 L RDW 24.1 H Plt Count 514 H Lymph % (Auto) [place] % (Auto) Eos % (Auto) Lymph # (Auto) [place] # (Auto) Eos # (Auto) Seg Neutrophils % Seg Neuts % (Manual) 71.0 H Monocytes % (Manual) Eosinophils % (Manual) 5.0 H Seg Neutrophils # Seg Neutrophils # Man 11.1 H Lymphocytes # (Manual) Monocytes # (Manual) 1.1 H Eosinophils # (Manual) 0.8 H APTT Heparin Anti-Xa Level ABG pH POC ABG pCO2 POC ABG pO2 ABG pO2 ABG HCO3 ABG Base Excess ABG Hemoglobin ABG Oxyhemoglobin ABG Sodium ABG Potassium ABG Chloride ABG Glucose Carboxyhemoglobin Sodium Potassium Chloride BUN Creatinine Glucose POC Glucose 203 H 191 H Lactic Acid Calcium Phosphorus AST ALT Troponin T C-Reactive Protein Albumin HDL Cholesterol Arterial Blood Glucose Arterial Blood Ionized Calcium Urine WBC (Auto) 10/07/20 10/08/20 10/08/20 23:40 04:22 04:22 WBC 15.2 H RBC Hgb 9.6 L Hct MCV MCH 24 L RDW 23.3 H Plt Count 517 H Lymph % (Auto) [place] % (Auto) Eos % (Auto) Lymph # (Auto) [place] # (Auto) Eos # (Auto) Seg Neutrophils % Seg Neuts % (Manual) Monocytes % (Manual) Eosinophils % (Manual) Seg Neutrophils # Seg Neutrophils # Man Lymphocytes # (Manual) Monocytes # (Manual) Eosinophils # (Manual) APTT Heparin Anti-Xa Level ABG pH POC ABG pCO2 POC ABG pO2 ABG pO2 ABG HCO3 ABG Base Excess ABG Hemoglobin ABG Oxyhemoglobin ABG Sodium ABG Potassium ABG Chloride ABG Glucose Carboxyhemoglobin Sodium Potassium Chloride BUN 18 H Creatinine Glucose 150 H POC Glucose 191 H Lactic Acid Calcium 10.3 H Phosphorus AST 63 H ALT Troponin T C-Reactive Protein Albumin HDL Cholesterol Arterial Blood Glucose Arterial Blood Ionized Calcium Urine WBC (Auto) 10/08/20 10/08/20 10/08/20 05:41 11:53 16:17 WBC RBC Hgb Hct MCV MCH RDW Plt Count Lymph % (Auto) [place] % (Auto) Eos % (Auto) Lymph # (Auto) [place] # (Auto) Eos # (Auto) Seg Neutrophils % Seg Neuts % (Manual) Monocytes % (Manual) Eosinophils % (Manual) Seg Neutrophils # Seg Neutrophils # Man Lymphocytes # (Manual) Monocytes # (Manual) Eosinophils # (Manual) APTT Heparin Anti-Xa Level ABG pH POC ABG pCO2 POC ABG pO2 ABG pO2 ABG HCO3 ABG Base Excess ABG Hemoglobin ABG Oxyhemoglobin ABG Sodium ABG Potassium ABG Chloride ABG Glucose Carboxyhemoglobin Sodium Potassium Chloride BUN Creatinine Glucose POC Glucose 125 H 116 H 141 H Lactic Acid Calcium Phosphorus AST ALT Troponin T C-Reactive Protein Albumin HDL Cholesterol Arterial Blood Glucose Arterial Blood Ionized Calcium Urine WBC (Auto) 10/08/20 10/09/20 10/09/20 23:24 04:07 04:07 WBC 14.2 H RBC Hgb 9.6 L Hct MCV MCH 24 L RDW 23.5 H Plt Count 543 H Lymph % (Auto) [place] % (Auto) 10.4 H Eos % (Auto) Lymph # (Auto) [place] # (Auto) 1.5 H Eos # (Auto) Seg Neutrophils % 70.9 H Seg Neuts % (Manual) Monocytes % (Manual) Eosinophils % (Manual) Seg Neutrophils # 10.1 H Seg Neutrophils # Man Lymphocytes # (Manual) Monocytes # (Manual) Eosinophils # (Manual) APTT Heparin Anti-Xa Level ABG pH POC ABG pCO2 POC ABG pO2 ABG pO2 ABG HCO3 ABG Base Excess ABG Hemoglobin ABG Oxyhemoglobin ABG Sodium ABG Potassium ABG Chloride ABG Glucose Carboxyhemoglobin Sodium Potassium Chloride BUN 18 H Creatinine Glucose 152 H POC Glucose 114 H Lactic Acid Calcium Phosphorus AST ALT Troponin T C-Reactive Protein Albumin HDL Cholesterol Arterial Blood Glucose Arterial Blood Ionized Calcium Urine WBC (Auto) 10/09/20 10/09/20 10/10/20 11:51 17:35 00:15 WBC RBC Hgb Hct MCV MCH RDW Plt Count Lymph % (Auto) [place] % (Auto) Eos % (Auto) Lymph # (Auto) [place] # (Auto) Eos # (Auto) Seg Neutrophils % Seg Neuts % (Manual) Monocytes % (Manual) Eosinophils % (Manual) Seg Neutrophils # Seg Neutrophils # Man Lymphocytes # (Manual) Monocytes # (Manual) Eosinophils # (Manual) APTT Heparin Anti-Xa Level ABG pH POC ABG pCO2 POC ABG pO2 ABG pO2 ABG HCO3 ABG Base Excess ABG Hemoglobin ABG Oxyhemoglobin ABG Sodium ABG Potassium ABG Chloride ABG Glucose Carboxyhemoglobin Sodium Potassium Chloride BUN Creatinine Glucose POC Glucose 134 H 139 H 184 H Lactic Acid Calcium Phosphorus AST ALT Troponin T C-Reactive Protein Albumin HDL Cholesterol Arterial Blood Glucose Arterial Blood Ionized Calcium Urine WBC (Auto) 10/10/20 10/10/20 10/10/20 03:42 03:42 05:45 WBC 14.5 H RBC 3.62 L Hgb 9.1 L Hct 29.2 L MCV MCH 25 L RDW 24.2 H Plt Count 540 H Lymph % (Auto) [place] % (Auto) 13.6 H Eos % (Auto) Lymph # (Auto) [place] # (Auto) 2.0 H Eos # (Auto) Seg Neutrophils % Seg Neuts % (Manual) Monocytes % (Manual) Eosinophils % (Manual) Seg Neutrophils # 9.3 H Seg Neutrophils # Man Lymphocytes # (Manual) Monocytes # (Manual) Eosinophils # (Manual) APTT Heparin Anti-Xa Level ABG pH POC ABG pCO2 POC ABG pO2 ABG pO2 ABG HCO3 ABG Base Excess ABG Hemoglobin ABG Oxyhemoglobin ABG Sodium ABG Potassium ABG Chloride ABG Glucose Carboxyhemoglobin Sodium 132 L Potassium Chloride 97.4 L BUN 23 H Creatinine Glucose 190 H POC Glucose 213 H Lactic Acid Calcium Phosphorus AST ALT Troponin T C-Reactive Protein Albumin HDL Cholesterol Arterial Blood Glucose Arterial Blood Ionized Calcium Urine WBC (Auto) 10/10/20 10/10/20 10/10/20 12:05 17:51 23:37 WBC RBC Hgb Hct MCV MCH RDW Plt Count Lymph % (Auto) [place] % (Auto) Eos % (Auto) Lymph # (Auto) [place] # (Auto) Eos # (Auto) Seg Neutrophils % Seg Neuts % (Manual) Monocytes % (Manual) Eosinophils % (Manual) Seg Neutrophils # Seg Neutrophils # Man Lymphocytes # (Manual) Monocytes # (Manual) Eosinophils # (Manual) APTT Heparin Anti-Xa Level ABG pH POC ABG pCO2 POC ABG pO2 ABG pO2 ABG HCO3 ABG Base Excess ABG Hemoglobin ABG Oxyhemoglobin ABG Sodium ABG Potassium ABG Chloride ABG Glucose Carboxyhemoglobin Sodium Potassium Chloride BUN Creatinine Glucose POC Glucose 199 H 170 H 225 H Lactic Acid Calcium Phosphorus AST ALT Troponin T C-Reactive Protein Albumin HDL Cholesterol Arterial Blood Glucose Arterial Blood Ionized Calcium Urine WBC (Auto) 10/11/20 10/11/20 10/11/20 05:02 11:45 17:08 WBC RBC Hgb Hct MCV MCH RDW Plt Count Lymph % (Auto) [place] % (Auto) Eos % (Auto) Lymph # (Auto) [place] # (Auto) Eos # (Auto) Seg Neutrophils % Seg Neuts % (Manual) Monocytes % (Manual) Eosinophils % (Manual) Seg Neutrophils # Seg Neutrophils # Man Lymphocytes # (Manual) Monocytes # (Manual) Eosinophils # (Manual) APTT Heparin Anti-Xa Level ABG pH POC ABG pCO2 POC ABG pO2 ABG pO2 ABG HCO3 ABG Base Excess ABG Hemoglobin ABG Oxyhemoglobin ABG Sodium ABG Potassium ABG Chloride ABG Glucose Carboxyhemoglobin Sodium Potassium Chloride BUN Creatinine Glucose POC Glucose 190 H 209 H 177 H Lactic Acid Calcium Phosphorus AST ALT Troponin T C-Reactive Protein Albumin HDL Cholesterol Arterial Blood Glucose Arterial Blood Ionized Calcium Urine WBC (Auto) 10/12/20 10/12/20 10/12/20 00:57 05:18 05:18 WBC 24.0 H RBC Hgb 9.4 L Hct 30.0 L MCV MCH 26 L RDW 23.9 H Plt Count 467 H Lymph % (Auto) [place] % (Auto) Eos % (Auto) Lymph # (Auto) [place] # (Auto) Eos # (Auto) Seg Neutrophils % Seg Neuts % (Manual) Monocytes % (Manual) 8.0 H Eosinophils % (Manual) Seg Neutrophils # Seg Neutrophils # Man 0.0 L Lymphocytes # (Manual) 0.0 L Monocytes # (Manual) Eosinophils # (Manual) APTT Heparin Anti-Xa Level ABG pH POC ABG pCO2 POC ABG pO2 ABG pO2 ABG HCO3 ABG Base Excess ABG Hemoglobin ABG Oxyhemoglobin ABG Sodium ABG Potassium ABG Chloride ABG Glucose Carboxyhemoglobin Sodium Potassium 5.1 H D Chloride BUN 20 H Creatinine Glucose 183 H POC Glucose 176 H Lactic Acid Calcium Phosphorus AST ALT Troponin T C-Reactive Protein Albumin HDL Cholesterol Arterial Blood Glucose Arterial Blood Ionized Calcium Urine WBC (Auto) 10/12/20 10/12/20 10/12/20 05:52 11:20 17:37 WBC RBC Hgb Hct MCV MCH RDW Plt Count Lymph % (Auto) [place] % (Auto) Eos % (Auto) Lymph # (Auto) [place] # (Auto) Eos # (Auto) Seg Neutrophils % Seg Neuts % (Manual) Monocytes % (Manual) Eosinophils % (Manual) Seg Neutrophils # Seg Neutrophils # Man Lymphocytes # (Manual) Monocytes # (Manual) Eosinophils # (Manual) APTT Heparin Anti-Xa Level ABG pH POC ABG pCO2 POC ABG pO2 ABG pO2 ABG HCO3 ABG Base Excess ABG Hemoglobin ABG Oxyhemoglobin ABG Sodium ABG Potassium ABG Chloride ABG Glucose Carboxyhemoglobin Sodium Potassium Chloride BUN Creatinine Glucose POC Glucose 167 H 179 H 150 H Lactic Acid Calcium Phosphorus AST ALT Troponin T C-Reactive Protein Albumin HDL Cholesterol Arterial Blood Glucose Arterial Blood Ionized Calcium Urine WBC (Auto) 10/13/20 10/13/20 10/13/20 00:06 05:31 11:09 WBC 14.3 H RBC 3.42 L Hgb 8.8 L Hct 27.8 L MCV MCH 26 L RDW 24.4 H Plt Count Lymph % (Auto) [place] % (Auto) Eos % (Auto) Lymph # (Auto) [place] # (Auto) Eos # (Auto) Seg Neutrophils % Seg Neuts % (Manual) Monocytes % (Manual) Eosinophils % (Manual) Seg Neutrophils # Seg Neutrophils # Man Lymphocytes # (Manual) Monocytes # (Manual) Eosinophils # (Manual) APTT Heparin Anti-Xa Level ABG pH POC ABG pCO2 POC ABG pO2 ABG pO2 ABG HCO3 ABG Base Excess ABG Hemoglobin ABG Oxyhemoglobin ABG Sodium ABG Potassium ABG Chloride ABG Glucose Carboxyhemoglobin Sodium Potassium Chloride BUN Creatinine Glucose POC Glucose 181 H 178 H Lactic Acid Calcium Phosphorus AST ALT Troponin T C-Reactive Protein Albumin HDL Cholesterol Arterial Blood Glucose Arterial Blood Ionized Calcium Urine WBC (Auto) 10/13/20 10/13/20 10/13/20 11:09 11:28 17:41 WBC RBC Hgb Hct MCV MCH RDW Plt Count Lymph % (Auto) [place] % (Auto) Eos % (Auto) Lymph # (Auto) [place] # (Auto) Eos # (Auto) Seg Neutrophils % Seg Neuts % (Manual) Monocytes % (Manual) Eosinophils % (Manual) Seg Neutrophils # Seg Neutrophils # Man Lymphocytes # (Manual) Monocytes # (Manual) Eosinophils # (Manual) APTT Heparin Anti-Xa Level ABG pH POC ABG pCO2 POC ABG pO2 ABG pO2 ABG HCO3 ABG Base Excess ABG Hemoglobin ABG Oxyhemoglobin ABG Sodium ABG Potassium ABG Chloride ABG Glucose Carboxyhemoglobin Sodium Potassium Chloride BUN 25 H Creatinine Glucose 207 H POC Glucose 209 H 167 H Lactic Acid Calcium 10.3 H Phosphorus AST ALT Troponin T C-Reactive Protein Albumin HDL Cholesterol Arterial Blood Glucose Arterial Blood Ionized Calcium Urine WBC (Auto) 10/13/20 10/14/20 10/14/20 23:43 05:46 10:54 WBC RBC Hgb Hct MCV MCH RDW Plt Count Lymph % (Auto) [place] % (Auto) Eos % (Auto) Lymph # (Auto) [place] # (Auto) Eos # (Auto) Seg Neutrophils % Seg Neuts % (Manual) Monocytes % (Manual) Eosinophils % (Manual) Seg Neutrophils # Seg Neutrophils # Man Lymphocytes # (Manual) Monocytes # (Manual) Eosinophils # (Manual) APTT Heparin Anti-Xa Level ABG pH POC ABG pCO2 POC ABG pO2 ABG pO2 ABG HCO3 ABG Base Excess ABG Hemoglobin ABG Oxyhemoglobin ABG Sodium ABG Potassium ABG Chloride ABG Glucose Carboxyhemoglobin Sodium Potassium Chloride BUN Creatinine Glucose POC Glucose 162 H 152 H 142 H Lactic Acid Calcium Phosphorus AST ALT Troponin T C-Reactive Protein Albumin HDL Cholesterol Arterial Blood Glucose Arterial Blood Ionized Calcium Urine WBC (Auto) 10/14/20 10/15/20 10/15/20 17:59 00:10 04:56 WBC 13.8 H RBC 3.29 L Hgb 8.4 L Hct 26.8 L MCV MCH 26 L RDW 24.5 H Plt Count Lymph % (Auto) [place] % (Auto) 8.4 H Eos % (Auto) Lymph # (Auto) [place] # (Auto) 1.2 H Eos # (Auto) 0.5 H Seg Neutrophils % Seg Neuts % (Manual) Monocytes % (Manual) Eosinophils % (Manual) Seg Neutrophils # 9.3 H Seg Neutrophils # Man Lymphocytes # (Manual) Monocytes # (Manual) Eosinophils # (Manual) APTT Heparin Anti-Xa Level ABG pH POC ABG pCO2 POC ABG pO2 ABG pO2 ABG HCO3 ABG Base Excess ABG Hemoglobin ABG Oxyhemoglobin ABG Sodium ABG Potassium ABG Chloride ABG Glucose Carboxyhemoglobin Sodium Potassium Chloride BUN Creatinine Glucose POC Glucose 131 H 163 H Lactic Acid Calcium Phosphorus AST ALT Troponin T C-Reactive Protein Albumin HDL Cholesterol Arterial Blood Glucose Arterial Blood Ionized Calcium Urine WBC (Auto) 10/15/20 10/15/20 10/15/20 04:56 12:13 17:29 WBC RBC Hgb Hct MCV MCH RDW Plt Count Lymph % (Auto) [place] % (Auto) Eos % (Auto) Lymph # (Auto) [place] # (Auto) Eos # (Auto) Seg Neutrophils % Seg Neuts % (Manual) Monocytes % (Manual) Eosinophils % (Manual) Seg Neutrophils # Seg Neutrophils # Man Lymphocytes # (Manual) Monocytes # (Manual) Eosinophils # (Manual) APTT Heparin Anti-Xa Level ABG pH POC ABG pCO2 POC ABG pO2 ABG pO2 ABG HCO3 ABG Base Excess ABG Hemoglobin ABG Oxyhemoglobin ABG Sodium ABG Potassium ABG Chloride ABG Glucose Carboxyhemoglobin Sodium Potassium Chloride BUN Creatinine Glucose 163 H POC Glucose 154 H 141 H Lactic Acid Calcium Phosphorus AST ALT Troponin T C-Reactive Protein Albumin HDL Cholesterol Arterial Blood Glucose Arterial Blood Ionized Calcium Urine WBC (Auto) 10/15/20 10/16/20 10/16/20 23:20 04:45 04:45 WBC RBC 3.47 L Hgb 8.9 L Hct 28.5 L MCV MCH 26 L RDW 24.4 H Plt Count Lymph % (Auto) [place] % (Auto) 9.6 H Eos % (Auto) 5.4 H Lymph # (Auto) [place] # (Auto) 1.0 H Eos # (Auto) 0.6 H Seg Neutrophils % Seg Neuts % (Manual) Monocytes % (Manual) Eosinophils % (Manual) Seg Neutrophils # Seg Neutrophils # Man Lymphocytes # (Manual) Monocytes # (Manual) Eosinophils # (Manual) APTT Heparin Anti-Xa Level ABG pH POC ABG pCO2 POC ABG pO2 ABG pO2 ABG HCO3 ABG Base Excess ABG Hemoglobin ABG Oxyhemoglobin ABG Sodium ABG Potassium ABG Chloride ABG Glucose Carboxyhemoglobin Sodium Potassium Chloride BUN Creatinine 0.5 L Glucose 138 H POC Glucose 136 H Lactic Acid Calcium Phosphorus AST ALT Troponin T C-Reactive Protein Albumin HDL Cholesterol Arterial Blood Glucose Arterial Blood Ionized Calcium Urine WBC (Auto) 10/16/20 10/16/20 10/16/20 05:23 11:38 17:36 WBC RBC Hgb Hct MCV MCH RDW Plt Count Lymph % (Auto) [place] % (Auto) Eos % (Auto) Lymph # (Auto) [place] # (Auto) Eos # (Auto) Seg Neutrophils % Seg Neuts % (Manual) Monocytes % (Manual) Eosinophils % (Manual) Seg Neutrophils # Seg Neutrophils # Man Lymphocytes # (Manual) Monocytes # (Manual) Eosinophils # (Manual) APTT Heparin Anti-Xa Level ABG pH POC ABG pCO2 POC ABG pO2 ABG pO2 ABG HCO3 ABG Base Excess ABG Hemoglobin ABG Oxyhemoglobin ABG Sodium ABG Potassium ABG Chloride ABG Glucose Carboxyhemoglobin Sodium Potassium Chloride BUN Creatinine Glucose POC Glucose 114 H 177 H 158 H Lactic Acid Calcium Phosphorus AST ALT Troponin T C-Reactive Protein Albumin HDL Cholesterol Arterial Blood Glucose Arterial Blood Ionized Calcium Urine WBC (Auto) 10/16/20 10/17/20 10/17/20 23:33 00:37 05:03 WBC RBC Hgb Hct MCV MCH RDW Plt Count Lymph % (Auto) [place] % (Auto) Eos % (Auto) Lymph # (Auto) [place] # (Auto) Eos # (Auto) Seg Neutrophils % Seg Neuts % (Manual) Monocytes % (Manual) Eosinophils % (Manual) Seg Neutrophils # Seg Neutrophils # Man Lymphocytes # (Manual) Monocytes # (Manual) Eosinophils # (Manual) APTT Heparin Anti-Xa Level ABG pH POC ABG pCO2 POC ABG pO2 ABG pO2 119.2 H ABG HCO3 28.5 H ABG Base Excess 3.8 H ABG Hemoglobin 10.6 L ABG Oxyhemoglobin ABG Sodium ABG Potassium ABG Chloride ABG Glucose Carboxyhemoglobin Sodium Potassium Chloride BUN Creatinine Glucose POC Glucose 149 H 138 H Lactic Acid Calcium Phosphorus AST ALT Troponin T C-Reactive Protein Albumin HDL Cholesterol Arterial Blood Glucose Arterial Blood Ionized Calcium Urine WBC (Auto) 10/17/20 10/17/20 10/17/20 07:56 07:56 11:30 WBC 11.7 H RBC 3.45 L Hgb 9.0 L Hct 28.3 L MCV MCH 26 L RDW 24.2 H Plt Count Lymph % (Auto) [place] % (Auto) 9.9 H Eos % (Auto) 5.3 H Lymph # (Auto) [place] # (Auto) 1.2 H Eos # (Auto) 0.6 H Seg Neutrophils % Seg Neuts % (Manual) Monocytes % (Manual) Eosinophils % (Manual) Seg Neutrophils # Seg Neutrophils # Man Lymphocytes # (Manual) Monocytes # (Manual) Eosinophils # (Manual) APTT Heparin Anti-Xa Level ABG pH POC ABG pCO2 POC ABG pO2 ABG pO2 ABG HCO3 ABG Base Excess ABG Hemoglobin ABG Oxyhemoglobin ABG Sodium ABG Potassium ABG Chloride ABG Glucose Carboxyhemoglobin Sodium Potassium Chloride BUN Creatinine 0.5 L Glucose 158 H POC Glucose 167 H Lactic Acid Calcium Phosphorus AST ALT Troponin T C-Reactive Protein Albumin HDL Cholesterol Arterial Blood Glucose Arterial Blood Ionized Calcium Urine WBC (Auto) Allied health notes reviewed: nursing
[2020-10-17 15:27] VITALS: BP 159/86
== END 2020-10-17 16:45 | DRG 4 ==
LOC: ED 16:46 → CC1 18:45
PROVIDERS: ADMIT Internal Medicine; ATTEND Internal Medicine
PROC: 0BH18EZ Insertion of Endotracheal Airway into Trachea, Via Natural or Artificial Opening Endoscopic (ICD-10-PCS; principal; 2020-09-25)
PROC: 5A1955Z Respiratory Ventilation, Greater than 96 Consecutive Hours (ICD-10-PCS; 2020-09-25)
PROC: 06HY33Z Insertion of Infusion Device into Lower Vein, Percutaneous Approach (ICD-10-PCS; 2020-09-25)
PROC: B54BZZA Ultrasonography of Right Lower Extremity Veins, Guidance (ICD-10-PCS; 2020-09-25)
PROC: 5A12012 Performance of Cardiac Output, Single, Manual (ICD-10-PCS; 2020-09-25)
PROC: 4A033R1 Measurement of Arterial Saturation, Peripheral, Percutaneous Approach (ICD-10-PCS; 2020-09-27)
PROC: 0DH63UZ Insertion of Feeding Device into Stomach, Percutaneous Approach (ICD-10-PCS; 2020-10-08)
PROC: 0B110F4 Bypass Trachea to Cutaneous with Tracheostomy Device, Open Approach (ICD-10-PCS; 2020-10-08)
DX: A41.9 Sepsis, unspecified organism (principal); I46.9 Cardiac arrest, cause unspecified; I22.2 Subsequent non-ST elevation (NSTEMI) myocardial infarction; G93.1 Anoxic brain damage, not elsewhere classified; K21.9 Gastro-esophageal reflux disease without esophagitis; E66.2 Morbid (severe) obesity with alveolar hypoventilation; J96.01 Acute respiratory failure with hypoxia; G40.909 Epilepsy, unspecified, not intractable, without status epilepticus; G92 Toxic encephalopathy; I42.0 Dilated cardiomyopathy; J69.0 Pneumonitis due to inhalation of food and vomit; Z20.822 Contact with and (suspected) exposure to COVID-19; N30.01 Acute cystitis with hematuria; Z71.3 Dietary counseling and surveillance; Z82.49 Family history of ischemic heart disease and other diseases of the circulatory system; Z79.899 Other long term (current) drug therapy; Z3A.40 40 weeks gestation of pregnancy
CPT/HCPCS: 36415; 36600; 70450; 70551; 71045; 71275; 74018; 80048; 80053; 80061; 80307; 81001; 81025; 82140; 82803; 82805; 82962; 83735; 84100; 84145; 84484; 85007; 85014; 85018; 85025; 85027; 85049; 85520; 85610; 85730; 86140; 86850; 86900; 86901; 87040; 87086; 93005; 93306; 93970; 94002; 94003; 95819; 96374; 96375; G0378; J0171; J0690; J0692; J1170; J1644; J1815; J1953; J1956; J2060; J2405; J2704; J2765; J3010; J3475; J7030; J7040; J7050; J7070; J7120; Q9967; U0003